=== PATIENT | female | born 1965 | race Caucasian/White ===

== ENCOUNTER 2020-02-13 09:45 | Outpatient (REF) | payer MEDICARE, MEDICAID, SELFPAY ==
--- NOTE | 2020-02-13 09:55 | FL_ITS ---
EXAMINATION: FL BARIUM SWALLOW CLINICAL INFORMATION: Dysphagia. COMPARISON: None TECHNIQUE: Barium swallow with air. FINDINGS: Normal swallowing reflex. No evidence of aspiration. There is a prominent posterior indentation of the cervical esophagus, with the appearance suggestive of a prominent cricopharyngeal muscle. No mass or mucosal lesion is otherwise seen. No hiatal hernia. No reflux is seen during the course of the procedure. Patient swallowed a barium tablet, demonstrating normal passage to the stomach. IMPRESSION: 1. Prominent posterior indentation of cervical esophagus, has the appearance of a prominent cricopharyngeal muscle. Please clinically correlate. 2. Otherwise, unremarkable study.
== END 2020-02-13 09:46 | disposition home or self-care (01) ==
LOC: HO.XRAY 09:45
PROVIDERS: Visit Provider Hospitalist
DX: R13.10 Dysphagia, unspecified (principal); J44.9 Chronic obstructive pulmonary disease, unspecified; G47.30 Sleep apnea, unspecified; Z90.2 Acquired absence of lung [part of]
CPT/HCPCS: 74220

== ENCOUNTER 2020-02-28 14:35 | Emergency (ER) | payer MEDICARE, MEDICAID, SELFPAY ==
--- NOTE | 2020-02-28 14:59 | PC.NURSE ---
pt very anxious stated she wanted to leave to take her mask off. pt encouraged to stay. pt walked outside to take mask off.
== END 2020-02-28 17:25 | disposition left against medical advice (07) ==
PROVIDERS: Emergency Provider Internal Medicine; PCP Internal Medicine
DX: R06.02 Shortness of breath (principal)
CPT/HCPCS: 99281

== ENCOUNTER 2020-02-28 16:53 | Outpatient (REF) | payer MEDICARE, MEDICAID, SELFPAY | END 2020-02-28 16:54 | disposition home or self-care (01) | LOC: HO.LAB 16:53 | PROVIDERS: PCP Internal Medicine; Visit Provider Internal Medicine | DX: Z20.828 Contact with and (suspected) exposure to other viral communicable diseases (principal) | CPT/HCPCS: 87635 ==

== ENCOUNTER 2020-03-01 13:01 | Observation (INO) | payer MEDICARE, MEDICAID, SELFPAY ==
[2020-03-01] VITALS (7 sets, daily range): BP systolic 108–155; BP diastolic 68–91; PULSE 77–107; RESP 15–22; TEMP 36.4–37.5; O2SAT 88–97; BMI 24.2
--- NOTE | 2020-03-01 13:44 | ECG_ITS ---
Test Reason : FEVER WEAKNESS Blood Pressure : / mmHG Vent. Rate : 100 BPM Atrial Rate : 100 BPM P-R Int : 182 ms QRS Dur : 092 ms QT Int : 380 ms P-R-T Axes : 069 061 075 degrees QTc Int : 490 ms Normal sinus rhythm Possible Left atrial enlargement Borderline ECG No significant changes seen Referred By: Susanna Cullen Electronically Signed By:KRYSTAL GIBSON MD
[2020-03-01] MEDS: 0.9 % Sodium Chloride 1,000 ML 999 ML IVCONT (14:26)
[2020-03-01 14:31] LABS: Basophils Percent Auto 0.6 % (0-2); Eosinophils Absolute Auto 0.1 X10*3/uL (0.0-0.4); Hematocrit 35.9 % (37-47); Hemoglobin 12.1 g/dl (12.0-16.0); Imm Gran Abs Auto 0.03 X10*3/uL (0.00-0.03); Imm Gran Pct Auto 0.5 % (0.0-0.4); Lymphocytes Absolute Auto 0.4 X10*3/uL (1.2-4.9); Lymphocytes Percent Auto 6.1 % (20-40); MANUAL DIFF FLAG SCAN; Mean Corpuscular HGB Conc 33.7 g/dl (31.0-35.0); Mean Corpuscular Hemoglobin 33.3 pg (27.0-33.0); Mean Corpuscular Volume 98.9 fL (80-98); Mean Platelet Volume 9.5 fL (9.4-12.3); Monocytes Percent Auto 16.3 % (2-11); Neutrophils Absolute Auto 4.7 X10*3/uL (2.0-8.3); Neutrophils Percent Auto 75.5 % (45-73); Platelet Count 231 X10*3/uL (160-400); Red Blood Count 3.63 X10*6/uL (4.20-5.50); Red Cell Distribution Width 14.2 % (11.0-16.0); SCAN SMEAR FLAG 1; White Blood Count 6.3 X10*3/uL (4.8-10.8)
[2020-03-01 14:37] LABS: Prothrombin Time 11.8 SEC (10.8-13.0)
[2020-03-01 14:53] LABS: Anion Gap 12 (12-20); Blood Urea Nitrogen 7 mg/dL (9-16); Calcium 8.2 mg/dL (8.4-10.2); Carbon Dioxide 27 mmol/L (22-29); Chloride 105 mmol/L (96-108); Creatinine Clr Calc Pharmacy 58.4; Estimated Glomerular Filt Rate 56; Glucose Random 90 mg/dL (60-115); Lactate Dehydrogenase 176 U/L (122-220); Magnesium 2.1 mg/dL (1.6-2.6); Potassium 4.1 mmol/l (3.3-5.1); Sodium 140 mmol/L (135-145)
[2020-03-01 14:56] LABS: SLIDE REVIEW VERIFIED
[2020-03-01 15:01] LABS: B Type Natriuretic Peptide 53 pg/mL (<100); Troponin-I High Sensitivity 4.6 ng/L (<3.5-17.0)
--- NOTE | 2020-03-01 15:09 | ED.SOB ---
HPI - SOB/Dyspnea General Chief Complaint: Dyspnea Stated Complaint: Fever, SOB Time Seen by Provider: 03/01/20 13:35 Source: patient and EMS Mode of arrival: ambulatory Limitations: no limitations History of Present Illness HPI Narrative: 55yoF c Asthma, COPD and sleep apnea presenting to the ED c c/o generalized weakness, dizziness, thirstiness, dry cough and shortness of breath for the past week. Reports she had negative COVID Wednesday. Reports she came back on Wednesday and her 2nd COVID is pending at this time. Denies any other symptoms complaints or concerns at this time. Denies recent travel or sick contacts. Related Data Allergies Allergy/AdvReac Type Severity Reaction Status Date / Time prednisone [PREDNISONE] Allergy Unknown AGITATION Verified 03/01/20 16:30 Review of Systems Review of Systems: Constitutional : + Chills, + Fatigue, + Malaise, No Fever ENT/Mouth : No Ear Pain, No Nasal Congestion, No Sinus Pain, No Hoarseness, No sore throat, No Rhinorrhea, No Swallowing Difficulty Eyes: No Eye Pain, No Swelling, No Redness, No Foreign Body, No Discharge, No Vision Changes Cardiovascular : No Chest Pain, + SOB, No Dyspnea on Exertion, No Orthopnea, No Edema, No Palpitations Respiratory : + Cough, No Sputum, No Wheezing, No Smoke Exposure, No Dyspnea Gastrointestinal : No Nausea, No Vomiting, No Diarrhea, No Constipation, No abdominal Pain, No Hematochezia, No Melena Genitourinary : no irregular bleeding, No Dysuria, No Urinary Frequency, No Hematuria, No Urinary Incontinence, No Urgency, No Flank Pain, No Urinary Flow Changes, No Hesitancy Musculoskeletal : No joint pain, No Myalgias, No Joint Swelling Skin : No Skin Lesions, No rash Neuro : No Weakness, No Numbness, No Paresthesias, No Loss of Consciousness, + Dizziness, No Headache Yes all other systems are reviewed and are negative [facility] Past Medical History Attestation statement: The following information was validated with the patient. Medical History Asthma COPD (chronic obstructive pulmonary disease) Sleep apnea Social History Social History Alcohol intake: never Smoking Status: Former smoker Smoked in Last 30 Days: No Use of substances other than those prescribed or required for medical reasons: No Advance Directives: No (UNABLE TO ASK ISOLATION) Advance Directives Information Provided: No Physical Exam Vital Signs: Vital Signs: Vital Signs Temp Pulse Resp BP Pulse Ox 03/01/20 17:53 99.1 F 89 15 117/70 93 03/01/20 17:49 88 L 03/01/20 16:20 98.8 F 95 18 122/77 91 L 03/01/20 15:06 98.7 F 104 H 22 H 155/91 H 93 03/01/20 13:13 99.5 F 107 H 18 155/87 H 97 Body Mass Index 24.2 vital signs have been reviewed as normal and appeared to be correct. Blood pressure normal. Heart rate normal. Respiration rate normal. Temperature normal. Oxygen saturation normal. Appearance: Alert. Oriented X3. No acute distress. Head: Normal external exam. Normocephalic. Atraumatic. Eyes: PERRLA. EOMI. Conjunctiva and sclera normal. Eyelids normal. ENT: EAC normal. TM's Normal. Pharynx normal. Uvula midline. Moist mucous membranes. No trismus noted. No drooling noted. No muffled voice noted. Neck: Normal inspection. Neck supple. FROM. No adenopathy. Thyroid Normal. No meningeal signs. No neck mass noted. CVS: Normal heart rate and rhythm. Heart sound normal. No murmurs noted. Pulses normal throughout. Respiratory: No respiratory distress. Painless inspiration. Breath sounds normal. No wheezes/rales/rhonchi noted. Chest nontender. No accessory muscle usage noted or decreased air movement noted. Abdomen: Soft and nontender. Bowel sounds normal in all 4 quadrants. No distention noted. No organomegaly noted. No visible injury noted. Back: No CVA tenderness. Full range of motion noted. Skin: Skin warm and dry. Normal skin color. Normal skin turgor. No rashes/lesions/lacerations noted. Extremities: No lower extremity edema. Extremities exhibit normal range of motion. Extremities nontender. Neuro: Oriented X 3. No motor deficit. No sensory deficit. Reflexes normal. Course Course Course Narrative: 13:44PM - 55yoF c Asthma, COPD and sleep apnea presenting to the ED c c/o generalized weakness, dizziness, thirstiness, dry cough and shortness of breath for the past week. - Concern for COVID vs pna vs PE - Plan: Labs, cxr, EKG, blood cultures. lactic acid not indicated as this is a viral infection/COVID-19. will provide IV fluids then re-evaluate. Reevaluation(s) Reevaluation #1: Patient's D-dimer mildly elevated at 234 otherwise all other labs are within normal limits. Patient is positive for COVID on rapid test. And she just walked to the bathroom and the nurse informed me that she went from 91 % on room air to 88% on room air just walking to the bathroom. Awaiting CT scan of chest to evaluate for possible PE or any other acute processes. Plan is to admit for COVID-19 with hypoxia. Patient understands agrees with this plan. Time: 17:41 Reevaluation #2: Awaiting for CTA of chest to evaluate for PE or any other acute processes. Sign out to Carlitos Parker at this time. He will follow up on the CTA and plan is still to admit. Patient understands agrees with this plan. Time: 18:04 MDM - SOB/Dyspnea Medical Records Attestation: I reviewed the patient's medical records. Lab Data Attestation: I reviewed the patient's lab results. Result diagrams: 03/01/20 14:23 03/01/20 14:23 Labs: Lab Results 03/01/20 03/01/20 03/01/20 Range/Units 14:23 14:23 14:23 WBC 6.3 (4.8-10.8) X10*3/uL RBC 3.63 L (4.20-5.50) X10*6/uL Hgb 12.1 (12.0-16.0) g/dl Hct 35.9 L (37-47) % MCV 98.9 H (80-98) fL MCH 33.3 H (27.0-33.0) pg MCHC 33.7 (31.0-35.0) g/dl RDW 14.2 (11.0-16.0) % Plt Count 231 (160-400) X10*3/uL MPV 9.5 (9.4-12.3) fL Immature Gran % (Auto) 0.5 H (0.0-0.4) % Neut % (Auto) 75.5 H (45-73) % Lymph % (Auto) 6.1 L (20-40) % Waldo % (Auto) 16.3 H (2-11) % Eos % (Auto) 1.0 (0-4) % Baso % (Auto) 0.6 (0-2) % Lymph # (Auto) 0.4 L (1.2-4.9) X10*3/uL Waldo # (Auto) 1.0 (0.1-1.2) X10*3/uL Eos # (Auto) 0.1 (0.0-0.4) X10*3/uL Baso # (Auto) 0.0 (0.0-0.2) X10*3/uL Abs Immat Gran (auto) 0.03 (0.00-0.03) X10*3/uL Absolute Neuts (auto) 4.7 (2.0-8.3) X10*3/uL Absolute Nucleated RBC 0.000 (0.0-0.012) X10*3/uL Nucleated RBC % (auto) 0.0 (0.0-0.2) /100WBC Smear Tech's Comments VERIFIED PT 11.8 (10.8-13.0) SEC INR 1.0 (0.9-1.1) D-Dimer 234 NG/ML Sodium 140 (135-145) mmol/L Potassium 4.1 (3.3-5.1) mmol/l Chloride 105 (96-108) mmol/L Carbon Dioxide 27 (22-29) mmol/L Anion Gap 12 (12-20) BUN 7 L (9-16) mg/dL Creatinine 1.03 (0.5-1.4) mg/dL Estim Creat Clear Calc 58.4 Estimated GFR 56 Random Glucose 90 (60-115) mg/dL Calcium 8.2 L (8.4-10.2) mg/dL Magnesium 2.1 (1.6-2.6) mg/dL Ferritin 49 (10-250) ng/mL Lactate Dehydrogenase 176 (122-220) U/L Troponin I High Sens (<3.5-17.0) ng/L B-Natriuretic Peptide (<100) pg/mL Procalcitonin ng/mL Urine Color Urine Appearance Urine pH (5.0-8.0) Ur Specific Eagle (1.005-1.025) Urine Protein (NEG-TRACE) MG/DL Urine Glucose (UA) (NEG) MG/DL Urine Ketones (NEG) MG/DL Urine Blood (NEG) Urine Nitrite (NEG) Ur Leukocyte Esterase (NEG) Urine Test (NEGATIVE) Coronavirus (PCR) (Negative) 03/01/20 03/01/20 03/01/20 Range/Units 14:23 14:23 16:16 WBC (4.8-10.8) X10*3/uL RBC (4.20-5.50) X10*6/uL Hgb (12.0-16.0) g/dl Hct (37-47) % MCV (80-98) fL MCH (27.0-33.0) pg MCHC (31.0-35.0) g/dl RDW (11.0-16.0) % Plt Count (160-400) X10*3/uL MPV (9.4-12.3) fL Immature Gran % (Auto) (0.0-0.4) % Neut % (Auto) (45-73) % Lymph % (Auto) (20-40) % Waldo % (Auto) (2-11) % Eos % (Auto) (0-4) % Baso % (Auto) (0-2) % Lymph # (Auto) (1.2-4.9) X10*3/uL Waldo # (Auto) (0.1-1.2) X10*3/uL Eos # (Auto) (0.0-0.4) X10*3/uL Baso # (Auto) (0.0-0.2) X10*3/uL Abs Immat Gran (auto) (0.00-0.03) X10*3/uL Absolute Neuts (auto) (2.0-8.3) X10*3/uL Absolute Nucleated RBC (0.0-0.012) X10*3/uL Nucleated RBC % (auto) (0.0-0.2) /100WBC Smear Tech's Comments PT (10.8-13.0) SEC INR (0.9-1.1) D-Dimer NG/ML Sodium (135-145) mmol/L Potassium (3.3-5.1) mmol/l Chloride (96-108) mmol/L Carbon Dioxide (22-29) mmol/L Anion Gap (12-20) BUN (9-16) mg/dL Creatinine (0.5-1.4) mg/dL Estim Creat Clear Calc Estimated GFR Random Glucose (60-115) mg/dL Calcium (8.4-10.2) mg/dL Magnesium (1.6-2.6) mg/dL Ferritin (10-250) ng/mL Lactate Dehydrogenase (122-220) U/L Troponin I High Sens 4.6 (<3.5-17.0) ng/L B-Natriuretic Peptide 53 (<100) pg/mL Procalcitonin 0.02 ng/mL Urine Color Urine Appearance Urine pH (5.0-8.0) Ur Specific Eagle (1.005-1.025) Urine Protein (NEG-TRACE) MG/DL Urine Glucose (UA) (NEG) MG/DL Urine Ketones (NEG) MG/DL Urine Blood (NEG) Urine Nitrite (NEG) Ur Leukocyte Esterase (NEG) Urine Test (NEGATIVE) Coronavirus (PCR) POSITIVE A (Negative) 03/01/20 Range/Units 16:52 WBC (4.8-10.8) X10*3/uL RBC (4.20-5.50) X10*6/uL Hgb (12.0-16.0) g/dl Hct (37-47) % MCV (80-98) fL MCH (27.0-33.0) pg MCHC (31.0-35.0) g/dl RDW (11.0-16.0) % Plt Count (160-400) X10*3/uL MPV (9.4-12.3) fL Immature Gran % (Auto) (0.0-0.4) % Neut % (Auto) (45-73) % Lymph % (Auto) (20-40) % Waldo % (Auto) (2-11) % Eos % (Auto) (0-4) % Baso % (Auto) (0-2) % Lymph # (Auto) (1.2-4.9) X10*3/uL Waldo # (Auto) (0.1-1.2) X10*3/uL Eos # (Auto) (0.0-0.4) X10*3/uL Baso # (Auto) (0.0-0.2) X10*3/uL Abs Immat Gran (auto) (0.00-0.03) X10*3/uL Absolute Neuts (auto) (2.0-8.3) X10*3/uL Absolute Nucleated RBC (0.0-0.012) X10*3/uL Nucleated RBC % (auto) (0.0-0.2) /100WBC Smear Tech's Comments PT (10.8-13.0) SEC INR (0.9-1.1) D-Dimer NG/ML Sodium (135-145) mmol/L Potassium (3.3-5.1) mmol/l Chloride (96-108) mmol/L Carbon Dioxide (22-29) mmol/L Anion Gap (12-20) BUN (9-16) mg/dL Creatinine (0.5-1.4) mg/dL Estim Creat Clear Calc Estimated GFR Random Glucose (60-115) mg/dL Calcium (8.4-10.2) mg/dL Magnesium (1.6-2.6) mg/dL Ferritin (10-250) ng/mL Lactate Dehydrogenase (122-220) U/L Troponin I High Sens (<3.5-17.0) ng/L B-Natriuretic Peptide (<100) pg/mL Procalcitonin ng/mL Urine Color STRAW Urine Appearance CLEAR Urine pH 6.5 (5.0-8.0) Ur Specific Eagle <= 1.005 (1.005-1.025) Urine Protein NEG (NEG-TRACE) MG/DL Urine Glucose (UA) NEG (NEG) MG/DL Urine Ketones NEG (NEG) MG/DL Urine Blood NEG (NEG) Urine Nitrite NEG (NEG) Ur Leukocyte Esterase NEG (NEG) Urine Test NEGATIVE (NEGATIVE) Coronavirus (PCR) (Negative) ECG Data Attestation: I personally reviewed and interpreted this ECG as follows: ECG interpretation date: 03/01/20 ECG interpretation time: 15:04 Prior ECG tracings: available for review Interpretation: normal sinus rhythm with a ventricular rate of 100 with left atrial enlargement with normal QRS, QT/QTC interval. No acute ischemic changes noted. Similar compared to prior 09/21/2019. Critical Care Time Critical Care Time Critical Care Time: Yes Total Critical Care Time: 60 Attestation: I personally attest to this time spent taking care of the patient
[2020-03-01 15:15] LABS: Ferritin 49 ng/mL (10-250)
[2020-03-01 15:35] LABS: D Dimer 234 NG/ML
[2020-03-01 15:47] LABS: Procalcitonin 0.02 ng/mL
--- NOTE | 2020-03-01 15:56 | CT_ITS ---
EXAMINATION: CT ANGIOGRAM OF THE CHEST WITH AND WITHOUT CONTRAST (CT PULMONARY ANGIOGRAM FOR PE) CLINICAL INFORMATION: Reason for Exam pt c sob ? pe COMPARISON: CT pulmonary angiogram 09/21/2019 TECHNIQUE: Prior to contrast administration, noncontrast localization images were obtained. Subsequently, multidetector volumetric imaging was performed from the thoracic inlet to below the diaphragms following the administration of 65 mLOmnipaque 350 intravenous contrast. No contrast reaction reported Sagittal, coronal, and MIP oblique sagittal reformatted images were obtained on the CT workstation, uploaded to PACS, and reviewed. This CT examination was performed using dose optimization techniques as appropriate, variously including the following: *Automated exposure control *Adjustment of mA and/or kV according to patient size (this includes techniques or standardized protocols for targeted exams where dose is matched to indication/reason for exam; i.e. extremities or head) *Use of iterative reconstruction technique Total exam dose-length product 247 mGy-cm FINDINGS: QUALITY OF STUDY/CONTRAST BOLUS: Satisfactory. PULMONARY ARTERIES: No central or segmental pulmonary emboli. THORACIC AORTA: No aneurysm is seen. No dissection is seen. Motion artifact obscures detail. Two-vessel branching pattern is seen with common origin to the innominate and left carotid. The great vessels are patent. LUNG: Once again seen are marked changes of COPD. Marked bullous formation is present. Again noted is the left apical soft tissue density with large coarse calcification, unchanged. Left basilar atelectasis is again seen. The previously seen pleural-based density on the right hemidiaphragm is patent and not a worrisome mass. No new suspicious lung masses are seen. PLEURA: No pleural effusion or pneumothorax. MEDIASTINUM: Normal heart size. No pericardial effusion. No hilar or mediastinal lymphadenopathy. No evidence of septal bowing or right heart strain. CHEST WALL/AXILLA: No axillary or internal mammary lymphadenopathy. Bilateral breast prostheses are present. OSSEOUS STRUCTURES: No acute or suspicious osseous abnormality. UPPER ABDOMEN: Unremarkable. No reflux of contrast into the hepatic veins to suggest elevated right heart pressures. CT/CT angio chest PE protocol IMPRESSION: 1. No evidence of pulmonary emboli 2. Marked underlying changes of COPD. 3. A worrisome lung mass is not seen VTE: negative
[2020-03-01] MEDS: Piperacillin Sodium/Tazobactam 3.375 GM in 0.9 % Sodium Chloride 50 ML IV (16:18)
--- NOTE | 2020-03-01 16:26 | PC.NURSE ---
Pt oxygen increased to 2L, for spo2 of 89 on 1L. Pt states she normally does not wear oxygen.
[2020-03-01] MEDS: Ketorolac Tromethamine 15 MG/ML VIAL 30 MG IV (16:40)
[2020-03-01 17:00] LABS: Appearance Urine CLEAR; Color Urine STRAW; Glucose Urine UA NEG (NEG); Leukocyte Esterase Urine NEG (NEG); Nitrite Urine NEG (NEG); PH 6.5 (5.0-8.0); Specific Gravity - Urine <= 1.005 (1.005-1.025); Urine Blood NEG (NEG); Urine Ketones NEG (NEG); Urine Protein NEG (NEG-TRACE)
[2020-03-01 17:01] LABS: UPreg QC Valid YES; Urine Pregnancy NEGATIVE (NEGATIVE)
[2020-03-01] MEDS: iohexoL 350 MG/ML 100 ML INFUS..BTL IV (17:26)
[2020-03-01 17:31] LABS: SARS COV2 PCR INHOUSE POSITIVE (Negative)
--- NOTE | 2020-03-01 19:00 | PM.EVENT ---
Event Note Event Note: Patient came to the hospital because she is feeling tightness and achiness, she was talking with the full sentences personal seem to be short of breath denies any cough or phlegm She says that she has emphysema and COPD and current smoker Found to have COVID positive But negative procalcitonin and LDH, troponin and within the susceptible range, D-dimer 230 Has some lymphopenia CTA chest: -negative infiltrate or mass has emphysema Physical exam: Cvs: rrr, [id number] , no murmur res: Grossly fair entry, few scattered rhonchii. abd : soft , nd , nt , bs present. ext pulses present , no cyanosis neuro: axo3 , nonfocal. Assessment and plan: ? COPD mild versus COVID Patient resting the pain full sentences saturating fine on room air, but with as per ED desaturate with walking Will add pulmonary evaluation for morning
[2020-03-01] MEDS: Acetaminophen 325 MG TABLET 975 MG PO (19:06)
--- NOTE | 2020-03-01 19:15 | P.HPIM_ITS ---
History of Present Illness Date of Service: 03/01/20 <BETHANIE Leal - Last Filed: 03/01/20 19:39> Chief Complaint: shortness of breath <BETHANIE Leal - Last Filed: 03/01/20 19:39> this is a 55-year-old female with a history of COPD who presents to the emergency department with shortness of breath. Patient reports associated dry cough and fever as well as body aches and headache. her coronavirus test in the emergency department was positive. Lab work was mostly unremarkable, CTA showed no evidence of pneumonia. However during ambulation her oxygen saturation dropped to 88% on room air and for this reason overnight observation was requested. <BETHANIE Leal - Last Filed: 03/01/20 19:39> Review of Systems Review of Systems: Yes all other systems are reviewed and are negative <BETHANIE Leal - Last Filed: 03/01/20 19:39> Constitutional: Constitutional: Reports body ache(s), Reports fever(s) and Reports headache(s) <BETHANIE Leal - Last Filed: 03/01/20 19:39> ENT: Reports headache(s) <BETHANIE Leal - Last Filed: 03/01/20 19:39> Cardiovascular: Cardiovascular: Denies chest pain and Reports dyspnea <BETHANIE Leal - Last Filed: 03/01/20 19:39> Respiratory: Respiratory: Reports cough and Reports dyspnea <BETHANIE Leal - Last Filed: 03/01/20 19:39> Neurologic: Reports headache(s) <BETHANIE Leal - Last Filed: 03/01/20 19:39> [facility] Medical History: Medical History Asthma Chronic pain COPD (chronic obstructive pulmonary disease) Mood disorder Pseudoseizures Sleep apnea <BETHANIE Leal - Last Filed: 03/01/20 19:39> Functional capacity: independent ambulation <BETHANIE Leal Last Filed: 03/01/20 19:39> Family history: reviewed and not pertinent <BETHANIE Leal - Last Filed: 03/01/20 19:39> Surgical History: Surgical History H/O tubal ligation Hx of pneumonectomy <BETHANIE Leal - Last Filed: 03/01/20 19:39> Social History: Social History Alcohol intake: never Smoking Status: Current every day smoker Tobacco Type: Cigarette Packs Per Day: 0.5 Cigarettes Per Day: 10.0 Smoked in Last 30 Days: Yes Patient Interested in Nicotine Replacement: Yes (PATCH ORDERD) Patient Given Instructions on How to Stop Smoking: Yes Date Education Initiated: 03/01/20 Use of substances other than those prescribed or required for medical reasons: Yes Substance Use Type: Marijuana Advance Directives: No (UNABLE TO ASK ISOLATION) Advance Directives Information Provided: No service: No Current occupational status: unemployed <BETHANIE Leal - Last Filed: 03/01/20 19:39> Meds Allergies/Adverse reactions: Allergies Allergy/AdvReac Type Severity Reaction Status Date / Time prednisone [PREDNISONE] Allergy Unknown AGITATION Verified 03/01/20 16:30 <BETHANIE Leal - Last Filed: 03/01/20 19:39> Home medications: Home Medications Medication Instructions Recorded Confirmed Type Anoro Ellipta 1 puff PO DAILY 03/01/20 03/01/20 History albuterol sulfate 2 puff PO Q4-6H PRN 03/01/20 03/01/20 History amitriptyline 100 mg PO BEDTIME 03/01/20 03/01/20 History baclofen 20 mg PO BIDWM 03/01/20 03/01/20 History buspirone 15 mg PO BID 03/01/20 03/01/20 History cholecalciferol (vitamin D3) 1 tab PO QWEEK 03/01/20 03/01/20 History diazepam 1 tab PO BID PRN 03/01/20 03/01/20 History gabapentin 600 mg PO TID 03/01/20 03/01/20 History lidocaine 1 patch TOPICAL DAILY 03/01/20 03/01/20 History montelukast 10 mg PO DAILY 03/01/20 03/01/20 History omeprazole 20 mg PO DAILY@0630 03/01/20 03/01/20 History risperidone 0.25 mg PO BID 03/01/20 03/01/20 History ropinirole 1 mg PO BEDTIME 03/01/20 03/01/20 History valacyclovir 500 mg PO DAILY 03/01/20 03/01/20 History <BETHANIE Leal - Last Filed: 03/01/20 19:39> Physical Exam Vital Signs and Narrative: Vital Signs: Last Vital Signs Temp 99.1 F 03/01/20 17:53 Pulse 89 03/01/20 17:53 Resp 15 03/01/20 17:53 BP 117/70 03/01/20 17:53 Pulse Ox 93 03/01/20 17:53 Body Mass Index 24.2 <BETHANIE Leal - Last Filed: 03/01/20 19:39> Const: Nutritional Appearance: well nourished <BETHANIE Leal - Last Filed: 03/01/20 19:39> Orientation/consciousness: patient oriented x3 <BETHANIE Leal - Last Filed: 03/01/20 19:39> HENMT: Head: Yes normocephalic and Yes atraumatic <BETHANIE Leal - Last Filed: 03/01/20 19:39> Eyes: Sclerae: sclerae normal <BETHANIE Leal - Last Filed: 03/01/20 19:39> Chest: Chest palpation & inspection: normal inspection of the chest <BETHANIE Leal - Last Filed: 03/01/20 19:39> Resp: Effort & Inspection: normal respiratory effort and no respiratory distress <BETHANIE Leal Last Filed: 03/01/20 19:39> Auscultation: clear to auscultation bilaterally <BETHANIE Leal - Last Filed: 03/01/20 19:39> Cardio: Rate: regular rate <BETHANIE Leal Last Filed: 03/01/20 19:39> Rhythm: regular rhythm <BETHANIE Leal - Last Filed: 03/01/20 19:39> GI: Palpation (GI): Soft to palpation and nontender <BETHANIE Leal - Last Filed: 03/01/20 19:39> Skin: General skin exam: no rashes or lesions noted <BETHANIE Leal - Last Filed: 03/01/20 19:39> Neuro: General: patient oriented x3 <BETHANIE Leal - Last Filed: 03/01/20 19:39> Cranial nerves: Yes CN's II-XII intact bilaterally and Yes Bilaterally intact EOM present <BETHANIE Leal - Last Filed: 03/01/20 19:39> Extrem: General: Yes normal to inspection <BETHANIE Leal Last Filed: 03/01/20 19:39> Results Labs Labs: Laboratory Tests 03/01/20 03/01/20 03/01/20 14:23 14:23 14:23 WBC 6.3 RBC 3.63 L Hgb 12.1 Hct 35.9 L MCV 98.9 H MCH 33.3 H MCHC 33.7 RDW 14.2 Plt Count 231 MPV 9.5 Immature Gran % (Auto) 0.5 H Neut % (Auto) 75.5 H Lymph % (Auto) 6.1 L [place] % (Auto) 16.3 H Eos % (Auto) 1.0 Baso % (Auto) 0.6 Lymph # (Auto) 0.4 L [place] # (Auto) 1.0 Eos # (Auto) 0.1 Baso # (Auto) 0.0 Abs Immat Gran (auto) 0.03 Absolute Neuts (auto) 4.7 Absolute Nucleated RBC 0.000 Nucleated RBC % (auto) 0.0 Smear Tech's Comments VERIFIED PT 11.8 INR 1.0 D-Dimer 234 Sodium 140 Potassium 4.1 Chloride 105 Carbon Dioxide 27 Anion Gap 12 BUN 7 L Creatinine 1.03 Estim Creat Clear Calc 58.4 Estimated GFR 56 Random Glucose 90 Calcium 8.2 L Magnesium 2.1 Ferritin 49 Lactate Dehydrogenase 176 Troponin I High Sens B-Natriuretic Peptide Procalcitonin Urine Color Urine Appearance Urine pH Ur Specific [place] Urine Protein Urine Glucose (UA) Urine Ketones Urine Blood Urine Nitrite Ur Leukocyte Esterase Urine Test Coronavirus (PCR) 03/01/20 03/01/20 03/01/20 14:23 14:23 16:16 WBC RBC Hgb Hct MCV MCH MCHC RDW Plt Count MPV Immature Gran % (Auto) Neut % (Auto) Lymph % (Auto) [place] % (Auto) Eos % (Auto) Baso % (Auto) Lymph # (Auto) [place] # (Auto) Eos # (Auto) Baso # (Auto) Abs Immat Gran (auto) Absolute Neuts (auto) Absolute Nucleated RBC Nucleated RBC % (auto) Smear Tech's Comments PT INR D-Dimer Sodium Potassium Chloride Carbon Dioxide Anion Gap BUN Creatinine Estim Creat Clear Calc Estimated GFR Random Glucose Calcium Magnesium Ferritin Lactate Dehydrogenase Troponin I High Sens 4.6 B-Natriuretic Peptide 53 Procalcitonin 0.02 Urine Color Urine Appearance Urine pH Ur Specific [place] Urine Protein Urine Glucose (UA) Urine Ketones Urine Blood Urine Nitrite Ur Leukocyte Esterase Urine Test Coronavirus (PCR) POSITIVE A 03/01/20 16:52 WBC RBC Hgb Hct MCV MCH MCHC RDW Plt Count MPV Immature Gran % (Auto) Neut % (Auto) Lymph % (Auto) [place] % (Auto) Eos % (Auto) Baso % (Auto) Lymph # (Auto) [place] # (Auto) Eos # (Auto) Baso # (Auto) Abs Immat Gran (auto) Absolute Neuts (auto) Absolute Nucleated RBC Nucleated RBC % (auto) Smear Tech's Comments PT INR D-Dimer Sodium Potassium Chloride Carbon Dioxide Anion Gap BUN Creatinine Estim Creat Clear Calc Estimated GFR Random Glucose Calcium Magnesium Ferritin Lactate Dehydrogenase Troponin I High Sens B-Natriuretic Peptide Procalcitonin Urine Color STRAW Urine Appearance CLEAR Urine pH 6.5 Ur Specific [place] <= 1.005 Urine Protein NEG Urine Glucose (UA) NEG Urine Ketones NEG Urine Blood NEG Urine Nitrite NEG Ur Leukocyte Esterase NEG Urine Test NEGATIVE Coronavirus (PCR) <BETHANIE Leal - Last Filed: 03/01/20 19:39> Assessment and Plan (1) COVID-19: Problem details: She has moderate illness with oxygen supplementation to maintain over 94% She is comfortable well She claims psychosis to Prednisone,but is on benzodiazepines <BETHANIE Leal - Last Filed: 03/01/20 19:39> Status: Acute <BETHANIE Leal - Last Filed: 03/01/20 19:39> this is a 55-year-old female with a history of COPD who presents to the emergency department with shortness of breath found to have coronavirus and hypoxia acute respiratory failure with hypoxia oxygen saturation dropped to 88% with ambulation related to underlying COPD as well as coronavirus coronavirus viral syndrome no evidence of pneumonia on CTA ferritin 49, LDH 176, D-dimer 234 - supplemental oxygen as needed - albuterol inhaler as needed - pulmonary consult - has declined Decadron as she has had bad reaction with steroids in the past tobacco dependence - smoking cessation advised - NRT COPD -supplemental o2 prn -declined steroids -prn albuterol mood - continue risperidone, diazepam, buspiron chonic pain -continue baclofen, ropinirole, lidoderm patch DVT ppx - Lovenox code status- full code <BETHANIE Leal - Last Filed: 03/01/20 19:39>
--- NOTE | 2020-03-01 19:19 | PC.NURSE ---
called for report, awaiting callback
--- NOTE | 2020-03-01 20:44 | PC.NURSE ---
report given to reginald thayer
[2020-03-01] MEDS: Amitriptyline HCl 50 MG TABLET 100 MG PO (22:11)
[2020-03-01] MEDS: Enoxaparin Sodium 40 MG/0.4 ML SYRINGE SUBCUT (22:11)
[2020-03-01] MEDS: rOPINIRole HCL 1 MG TABLET PO (22:12)
[2020-03-01] MEDS: busPIRone HCl 5 MG TABLET 15 MG PO (22:12)
[2020-03-01] MEDS: risperiDONE 0.25 MG TABLET PO (22:13)
[2020-03-01] MEDS: Gabapentin 600 MG TABLET PO (22:13)
[2020-03-01] MEDS: diazePAM 10 MG TABLET PO (22:19)
[2020-03-02] VITALS (8 sets, daily range): BP systolic 118–166; BP diastolic 68–94; PULSE 87–98; RESP 18–20; TEMP 35.9–37.1; O2SAT 93–97
[2020-03-02] MEDS: 0.9 % Sodium Chloride Flush 3 ML SYRINGE IVFLUSH ×3 (00:35→15:47)
[2020-03-02] MEDS: Acetaminophen 325 MG TABLET 650 MG PO (01:59)
[2020-03-02] MEDS: Omeprazole 20 MG CAPSULE.DR PO (05:30)
[2020-03-02 07:07] LABS: Hematocrit 39.9 % (37-47); Hemoglobin 12.9 g/dl (12.0-16.0); Mean Corpuscular HGB Conc 32.3 g/dl (31.0-35.0); Mean Corpuscular Hemoglobin 32.4 pg (27.0-33.0); Mean Corpuscular Volume 100.3 fL (80-98); Mean Platelet Volume 9.8 fL (9.4-12.3); Platelet Count 238 X10*3/uL (160-400); Red Blood Count 3.98 X10*6/uL (4.20-5.50); Red Cell Distribution Width 14.6 % (11.0-16.0); White Blood Count 5.1 X10*3/uL (4.8-10.8)
[2020-03-02 07:38] LABS: Anion Gap 14 (12-20); Blood Urea Nitrogen 6 mg/dL (9-16); Carbon Dioxide 27 mmol/L (22-29); Chloride 107 mmol/L (96-108); Creatinine Clr Calc Pharmacy 61.4; Estimated Glomerular Filt Rate 59; Glucose Random 122 mg/dL (60-115); Potassium 4.1 mmol/l (3.3-5.1); Sodium 144 mmol/L (135-145)
[2020-03-02] MEDS: Nicotine 14 MG PATCH.TD24 TRANSDERMA (08:54)
[2020-03-02] MEDS: Gabapentin 600 MG TABLET PO ×3 (08:54→20:50)
[2020-03-02] MEDS: risperiDONE 0.25 MG TABLET PO ×2 (08:54→20:50)
[2020-03-02] MEDS: Baclofen 20 MG TABLET PO ×2 (08:54→16:38)
[2020-03-02] MEDS: busPIRone HCl 5 MG TABLET 15 MG PO ×2 (08:54→20:49)
[2020-03-02] MEDS: Montelukast Sodium 10 MG TABLET PO (08:54)
[2020-03-02] MEDS: Lidocaine 4 % Patch ADH..PATCH 1 PATCH TRANSDERMA (08:55)
[2020-03-02] MEDS: diazePAM 10 MG TABLET PO ×2 (09:26→21:26)
--- NOTE | 2020-03-02 10:46 | PM.EVENT ---
Event Note Event Note: I saw this pt, for Pulm. consult . Complete note is dictated , and case discussed with Dr. Cerda . A: Covid infection , underlying , H/O severe COPD .past H/o Thoracostomy , and post thoracostomy pain .NATASHA, Pt on CPAP at night /Chronic Anxiety and psychotic disorder. P: keep her on regular , meds , Monitor O2 sat and may use O2 as needed , No need of starting on Dexa methasone , or Remdesvir at this time . May be started on famotidine 20 mg bid, emperically . May D/C home , if stable by tomorrow .
--- NOTE | 2020-03-02 11:39 | CONS_ITS ---
DATE OF SERVICE: 03/02/2020 HISTORY OF PRESENT ILLNESS: This patient is a 55-year-old female with history of advanced chronic obstructive pulmonary disease and also significant degree of chronic anxiety. She has had thoracostomy in the past and continues to have post thoracostomy pain. She has history of sleep apnea, uses CPAP at night and also has history of pseudoseizures in the past. This time, she is coming in the hospital with increased cough, shortness of breath and anxiety over the last 1 week. Denies any fever, but has had some body aches and pains. She had COVID test earlier during the week, which was negative, but she was in the emergency room on 03/01 with persistent respiratory symptoms and O2 saturation was somewhat low on room air, so she had another COVID test, which is reported to be positive. The patient denies contact with any sick persons or traveling out of the area. REVIEW OF SYSTEMS: Mainly is consisting of cough and shortness of breath, general body aches, and minimal headache. CARDIOVASCULAR: Denies any chest pain, but does have dyspnea on exertion, which may be more due to her pulmonary issues. PERSONAL HISTORY: The patient does smoke a few cigarettes every day up to 10. She also smokes marijuana off and on. ALLERGIES: THE PATIENT DESCRIBES THAT SHE GETS PSYCHOTIC SYMPTOMS FROM HIGH DOSE STEROIDS. MEDICATIONS: Her current medications at home include Anoro Ellipta 1 puff daily, montelukast 10 mg daily, and albuterol 2 puffs q.4-5 hours p.r.n. For her chronic anxiety and bipolar disorder, she is on risperidone 0.25 mg b.i.d. For pain, she is on gabapentin 600 mg t.i.d. The patient also valacyclovir 500 mg daily for herpes simplex infection. PHYSICAL EXAMINATION: GENERAL: A 55-year-old female of a thin build, is walking around in the bedroom. She is holding onto her oximeter and checking her O2 sats, which are staying above 90. VITAL SIGNS: Her vital signs are fairly stable at this time. Respiratory rate 14, pulse is 87, temperature normal. Current O2 saturation 94%. EAR, NOSE, THROAT: No acute infection is noted. NECK: No JVD. Trachea midline. CHEST: Percussion note is hyper-resonant. Breath sounds are very distant. There are inspiratory rhonchi over the right upper lobe. No definite crepitations are heard. HEART: Sounds are normal. Rhythm regular. No murmurs or gallops. ABDOMEN: Flat, soft, and nontender. EXTREMITIES: No edema or varicosities. LABORATORY DATA: COVID PCR rapid test is positive. White cell count 5.1, hemoglobin 12.9, hematocrit 39. CLINICAL IMPRESSION: 1. Advanced chronic obstructive pulmonary disease. 2. 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 3. Obstructive sleep apnea. The patient on CPAP at night. 4. Acute COVID infection, but no evidence of pneumonitis at this time. 5. Anxiety neurosis. RECOMMENDATIONS: I think the patient should be continued on her regular medications. Oxygen supplementation only as needed. Because the patient has history of psychotic symptoms due to steroid, then due to this, we will hold off giving her dexamethasone. The patient should be observed at least for 24 hours in the hospital and if her vital signs are stable and oxygenation is holding stable, then she can be discharged home. At home, she will use her CPAP every night. Thank you very much for asking me to see this patient. MD ANU Esteves/KAREY / [id number]
--- NOTE | 2020-03-02 12:02 | MHC.CM.PN ---
MATERIAL FLOW ANALYST COMPLETED WITH PT WHO REPORTS SHE LIVES ALONE AND IS INDEPENDENT WITH CARE AND MOBILITY. PT REPORTS SHE HAS A CPAP AND NEBULIZER. PT REPORTS HER SISTER WAS PLANNING TO BRING IN HER CPAP. PT REPORTS HER PCP IS JOJO SNELL AT [facility]. PT REPORTS SHE DOES NOT HAVE A HCP AT THIS TIME BUT WOULD LIKE TO COMPLETE ONE DURING HER ADMISSION. PT WILL NAME HER SISTER, MELVIN WAKEFIELD ([phone]) HER AGENT. IMM DELIVERED AND PER PT PREFERENCE, A COPY WILL BE MAILED TO HER HOME. CURRENT DC PLAN IS HOME WITH NO SERVICES PT WILL SELF ARRANGE TRANSPORT AT DC
--- NOTE | 2020-03-02 13:24 | HO.PM.IMPN ---
Subjective Subjective Date of Service: 03/02/20 Interval History: COVID infection Review of Systems Still feel some shortness of breath with walking Physical Exam Vital Signs: Vital Signs: Vital Signs Temp Pulse Resp BP Pulse Ox 03/02/20 11:17 94 03/02/20 11:08 97.8 F 98 18 166/89 H 95 03/02/20 08:00 97.8 F 87 18 147/81 H 94 03/02/20 03:57 95 03/02/20 03:21 98.6 F 87 20 140/79 H 97 03/01/20 23:39 97.6 F 77 20 108/68 93 03/01/20 21:20 97.7 F 78 18 137/86 96 03/01/20 17:53 99.1 F 89 15 117/70 93 03/01/20 17:49 88 L 03/01/20 16:20 98.8 F 95 18 122/77 91 L 03/01/20 15:06 98.7 F 104 H 22 H 155/91 H 93 Body Mass Index 24.2 Physical exam: Cvs: rrr, [id number] , no murmur res: Diminished breath sounds at bases, few scattered wheezing abd: no rebound or guarding ,nt, bs present. ext pulses present , no cyanosis neuro: axo3 , nonfocal. Objective Data Current Medications Generic Name Dose Route Start Last Admin Trade Name Freq PRN Reason Stop Dose Admin Acetaminophen 650 mg 03/01/20 21:05 03/02/20 01:59 Acetaminophen 325 Mg Tablet PO 650 mg Q6H PRN Administration Pain, Mild (Pain Scale 1-3) Albuterol Sulfate 2 puff 03/01/20 21:05 Albuterol Sulfate 90 Mcg 8 Gm Inhaler INHALE Q4H PRN wheezing Amitriptyline HCl 100 mg 03/01/20 21:05 03/01/20 22:11 Amitriptyline Hcl 50 Mg Tablet PO 100 mg BEDTIME LILLIAN Administration Baclofen 20 mg 03/02/20 08:00 03/02/20 08:54 Baclofen 20 Mg Tablet PO 20 mg BIDWM LILLIAN Administration Buspirone HCl 15 mg 03/01/20 21:05 03/02/20 08:54 Buspirone Hcl 5 Mg Tablet PO 15 mg BID LILLIAN Administration Diazepam 10 mg 03/01/20 21:05 03/02/20 09:26 Diazepam 10 Mg Tablet PO 10 mg BID PRN Administration Anxiety Docusate Sodium 100 mg 03/01/20 21:05 Docusate Sodium 100 Mg Capsule PO DAILY PRN Constipation Enoxaparin Sodium 40 mg 03/01/20 21:00 03/01/20 22:11 Enoxaparin Sodium 40 Mg/0.4 Ml Syringe SUBCUT 40 mg Q24H LILLIAN Administration Gabapentin 600 mg 03/01/20 21:05 03/02/20 08:54 Gabapentin 600 Mg Tablet PO 600 mg TID LILLIAN Administration Lidocaine 1 patch 03/02/20 09:00 03/02/20 08:55 Lidocaine 4 % Patch Adh..Patch TRANSDERMA 1 patch DAILY LILLIAN Administration Montelukast Sodium 10 mg 03/02/20 09:00 03/02/20 08:54 Montelukast Sodium 10 Mg Tablet PO 10 mg DAILY LILLIAN Administration Nicotine 14 mg 03/01/20 21:05 03/02/20 08:54 Nicotine 14 Mg Patch.Td24 TRANSDERMA 14 mg DAILY LILLIAN Administration Non-Formulary Medication 1 puff 03/02/20 09:00 Umeclidinium-Vilanterol [Anoro Ellipta] PO DAILY LILLIAN Omeprazole 20 mg 03/02/20 06:30 03/02/20 05:30 Omeprazole 20 Mg Capsule.Dr PO 20 mg DAILY@0630 LILLIAN Administration Ondansetron HCl 4 mg 03/01/20 21:05 Ondansetron Hcl 4 Mg/2 Ml Vial IVPUSH Q8H PRN Nausea and Vomiting Pharmacy Consult 1 each 03/01/20 17:48 Consult Rx Perform Med Rec MISCELLANE ONCE PRN Consult order Risperidone 0.25 mg 03/01/20 21:05 03/02/20 08:54 Risperidone 0.25 Mg Tablet PO 0.25 mg BID LILLIAN Administration Ropinirole HCl 1 mg 03/01/20 21:05 03/01/20 22:12 Ropinirole Hcl 1 Mg Tablet PO 1 mg BEDTIME LILLIAN Administration Sodium Chloride 3 ml 03/02/20 00:00 03/02/20 08:55 0.9 % Sodium Chloride Flush 3 Ml Syringe IVFLUSH 3 ml QSHIFT LILLIAN Administration Valacyclovir HCl 500 mg 03/02/20 09:00 03/02/20 08:54 Valacycyclovir Hcl 500 Mg Tablet PO 500 mg DAILY LILLIAN Administration Labs CBC & Chem 7: 03/02/20 06:29 03/02/20 06:29 Assessment and Plan (1) COVID-19: Status: Acute (2) COPD (chronic obstructive pulmonary disease): Status: Acute Assessment and Plan: 55-year-old female with a history of COPD who presents to the emergency department with shortness of breath found to have coronavirus and hypoxia 1. acute respiratory failure with hypoxia yesterdayoxygen saturation dropped to 88% with ambulation related to underlying COPD as well as coronavirus Still feels winded with walking, very anxious about coronavirus syndrome no evidence of pneumonia on CTA ferritin 49, LDH 176, D-dimer 234 supplemental oxygen as needed, albuterol inhaler as needed,has declined Decadron as she has had bad reaction with steroids in the past Discussed with pulmonary monitor today if shortness of breath worsen we will consider conversant plasma. Id evaluation pending. 2. tobacco dependence smoking cessation advise,NRT 3.COPD supplemental o2 prn,declined steroids prn albuterol 4.mood: continue risperidone, diazepam, buspiron 5.chonic pain: continue baclofen, ropinirole, lidoderm patch
--- NOTE | 2020-03-02 14:40 | W.PM.IDCN ---
History of Present Illness Data of Consult Service Date: 03/02/20 Requesting physician: Bebo Cerda Primary Care Provider: Unknown Physician HPI Reason for consult: shortness of breath She has one week shortness of breath Her boyfriend was diagnosed with COVID yesterday She has COVID positivity She did have home oxygen at night in past but not now She has a dry cough Review of Systems Constitutional: Constitutional: Reports headache(s) ENT: Reports headache(s) Neurologic: Reports headache(s) PMFSH Past Medical History Medical History Asthma Chronic pain COPD (chronic obstructive pulmonary disease) Mood disorder Pseudoseizures Sleep apnea Functional capacity: independent ambulation Family History Family history: reviewed and not pertinent Surgical History Surgical History H/O tubal ligation Hx of pneumonectomy Social History Social History Alcohol intake: never Smoking Status: Current every day smoker Tobacco Type: Cigarette Packs Per Day: 0.5 Cigarettes Per Day: 10.0 Smoked in Last 30 Days: Yes Patient Interested in Nicotine Replacement: Yes (PATCH ORDERD) Patient Given Instructions on How to Stop Smoking: Yes Date Education Initiated: 03/01/20 Use of substances other than those prescribed or required for medical reasons: Yes Substance Use Type: Marijuana Advance Directives: No (UNABLE TO ASK ISOLATION) Advance Directives Information Provided: No service: No Current occupational status: unemployed Meds Allergies Allergy/AdvReac Type Severity Reaction Status Date / Time prednisone [PREDNISONE] Allergy Unknown AGITATION Verified 03/01/20 16:30 Home Medications Medication Instructions Recorded Confirmed Type Anoro Ellipta 1 puff PO DAILY 03/01/20 03/01/20 History albuterol sulfate 2 puff PO Q4-6H PRN 03/01/20 03/01/20 History amitriptyline 100 mg PO BEDTIME 03/01/20 03/01/20 History baclofen 20 mg PO BIDWM 03/01/20 03/01/20 History buspirone 15 mg PO BID 03/01/20 03/01/20 History cholecalciferol (vitamin D3) 1 tab PO QWEEK 03/01/20 03/01/20 History diazepam 1 tab PO BID PRN 03/01/20 03/01/20 History gabapentin 600 mg PO TID 03/01/20 03/01/20 History lidocaine 1 patch TOPICAL DAILY 03/01/20 03/01/20 History montelukast 10 mg PO DAILY 03/01/20 03/01/20 History omeprazole 20 mg PO DAILY@0630 03/01/20 03/01/20 History risperidone 0.25 mg PO BID 03/01/20 03/01/20 History ropinirole 1 mg PO BEDTIME 03/01/20 03/01/20 History valacyclovir 500 mg PO DAILY 03/01/20 03/01/20 History Physical Exam Vital Signs: Vital Signs: Vital Signs Temp Pulse Resp BP Pulse Ox 03/02/20 11:17 94 03/02/20 11:08 97.8 F 98 18 166/89 H 95 03/02/20 08:00 97.8 F 87 18 147/81 H 94 03/02/20 03:57 95 03/02/20 03:21 98.6 F 87 20 140/79 H 97 03/01/20 23:39 97.6 F 77 20 108/68 93 03/01/20 21:20 97.7 F 78 18 137/86 96 03/01/20 17:53 99.1 F 89 15 117/70 93 03/01/20 17:49 88 L 03/01/20 16:20 98.8 F 95 18 122/77 91 L 03/01/20 15:06 98.7 F 104 H 22 H 155/91 H 93 Body Mass Index 24.2 Const: General: cooperative HENMT: Head: Yes normal to inspection Eyes: General: appearance normal, both eyes and all related structures Neck: Neck: Yes no meningeal signs Resp: Other: took oxygen off Effort & Inspection: normal respiratory effort and able to speak in complete sentences Cardio: Rate: regular rate Rhythm: regular rhythm GI: Palpation (GI): nontender Skin: General skin exam: no rashes or lesions noted Neuro: General: no meningeal signs Assessment and Plan (1) COVID-19: Problem details: She has moderate illness with oxygen supplementation to maintain over 94% She is comfortable well She claims psychosis to Prednisone,but is on benzodiazepines Status: Acute Maintain on oxygen She agrees to Dexamethasone 6 mg IV daily if oxygen requirement increases or becomes more symptomatic and if that happens would consult Psychiatry or even consult earlier for best management of steroid psychosis as steroids would be possibly life-saving only drug for COVID with this positive data and benefit would outweigh risk,she agrees Also evaluate for possible Remdesivir candidancy per Pharmacy (2) Hypoxic: Status: Acute (3) COPD (chronic obstructive pulmonary disease): Status: Acute Results Labs CBC & Chem 7: 03/02/20 06:29 03/02/20 06:29 Labs: Short CBC 03/02/20 Range/Units 06:29 WBC 5.1 (4.8-10.8) X10*3/uL Hgb 12.9 (12.0-16.0) g/dl Hct 39.9 (37-47) % Plt Count 238 (160-400) X10*3/uL BMP 03/01/20 03/02/20 14:23 06:29 Sodium 140 144 Potassium 4.1 4.1 Chloride 105 107 Carbon Dioxide 27 27 BUN 7 L 6 L Creatinine 1.03 0.98 Calcium 8.2 L 8.0 L Urine 03/01/20 Range/Units 16:52 Urine Color STRAW Urine Appearance CLEAR Urine pH 6.5 (5.0-8.0) Ur Specific [place] <= 1.005 (1.005-1.025) Urine Protein NEG (NEG-TRACE) MG/DL Urine Glucose (UA) NEG (NEG) MG/DL
[2020-03-02] MEDS: guaiFEN/Codeine SF 200/20/10ML 10 ML LIQUID 5 ML PO (16:38)
[2020-03-02] MEDS: Ibuprofen 200 MG TABLET PO (19:28)
[2020-03-02] MEDS: Enoxaparin Sodium 40 MG/0.4 ML SYRINGE SUBCUT (20:49)
[2020-03-02] MEDS: Amitriptyline HCl 50 MG TABLET 100 MG PO (20:50)
[2020-03-02] MEDS: rOPINIRole HCL 1 MG TABLET PO (20:50)
[2020-03-03] MEDS: 0.9 % Sodium Chloride Flush 3 ML SYRINGE IVFLUSH ×2 (00:13→07:36)
[2020-03-03 03:58] VITALS: BP 102/57; PULSE 78; RESP 18; TEMP 36.4; O2SAT 96
[2020-03-03 04:00] VITALS: BP 102/57; PULSE 78; RESP 18; TEMP 36.4; O2SAT 96
[2020-03-03] MEDS: Omeprazole 20 MG CAPSULE.DR PO (05:57)
[2020-03-03] MEDS: busPIRone HCl 5 MG TABLET 15 MG PO (07:34)
[2020-03-03] MEDS: risperiDONE 0.25 MG TABLET PO (07:34)
[2020-03-03] MEDS: Montelukast Sodium 10 MG TABLET PO (07:35)
[2020-03-03] MEDS: Lidocaine 4 % Patch ADH..PATCH 1 PATCH TRANSDERMA (07:35)
[2020-03-03] MEDS: Baclofen 20 MG TABLET PO (07:35)
[2020-03-03] MEDS: Nicotine 14 MG PATCH.TD24 TRANSDERMA (07:35)
[2020-03-03] MEDS: Gabapentin 600 MG TABLET PO (07:35)
[2020-03-03 07:39] VITALS: BP 129/85; PULSE 87; RESP 18; TEMP 36.8; O2SAT 95
[2020-03-03] MEDS: diazePAM 10 MG TABLET PO (08:15)
--- NOTE | 2020-03-03 11:00 | PM.DS ---
DS: Providers Provider Date of admission: 03/01/20 18:35 Primary care physician: Unknown Physician Consults: 03/01/20 21:05 Consult to Infectious Diseases Routine Consulting Provider: Beth Simmons Reason for consultation: covid Has provider been notified: No Consult to Pulmonology Routine Consulting Provider: Carla Sheppard Reason for consultation: covid, copd Has provider been notified: No DS: Diagnosis Discharge Diagnosis (1) COVID-19: Status: Acute Problem details: She has moderate illness with oxygen supplementation to maintain over 94% She is comfortable well She claims psychosis to Prednisone,but is on benzodiazepines (2) Hypoxic: Status: Acute (3) COPD (chronic obstructive pulmonary disease): Status: Acute DS: Summary Time Spent with Patient Time attestation: Total time spent providing and/or coordinating discharge services: Physical Exam Vital Signs: Vital Signs: Vital Signs Temp Pulse Resp BP Pulse Ox 03/03/20 07:39 98.2 F 87 18 129/85 95 03/03/20 04:00 97.5 F 78 18 102/57 L 96 03/03/20 03:58 97.5 F 78 18 102/57 L 96 03/02/20 23:32 96.7 F L 92 18 118/68 94 03/02/20 18:53 98.7 F 89 18 142/94 H 93 03/02/20 15:19 98.0 F 88 18 150/91 H 97 Body Mass Index 24.2 Physical Exam: Cvs: rrr, [id number] , no murmur. res: Grossly fair entry, no rales or wheezing. abd: no rebound or guarding ,nt, bs present. ext pulses present , no cyanosis neuro: axo3 , nonfocal. DS: Data Data Completed and Pending Labs on day of discharge: Preliminary micro results at discharge 03/01/20 15:12 Blood Culture - Preliminary Blood - Venous No growth after 24 hours. 03/01/20 15:12 Blood Culture - Preliminary Blood - Venous No growth after 24 hours. Discharge Plan Discharge Patient Disposition: Home, Self-Care Referrals: Physician,Unknown [Primary Care Provider] - Discharge Medications: Continued gabapentin 600 mg tablet 600 mg PO TID RF: 0 ropinirole 1 mg tablet 1 mg PO BEDTIME RF: 0 risperidone 0.25 mg tablet 0.25 mg PO BID RF: 0 valacyclovir 500 mg tablet 500 mg PO DAILY RF: 0 baclofen 20 mg tablet 20 mg PO BIDWM RF: 0 lidocaine 5 % adhesive patch,medicated 1 patch topical DAILY RF: 0 omeprazole 20 mg capsule,delayed release(DR/EC) 20 mg PO DAILY@0630 RF: 0 montelukast 10 mg tablet 10 mg PO DAILY RF: 0 diazepam 10 mg tablet 1 tab PO BID PRN (Reason: Anxiety) RF: 0 albuterol sulfate 90 mcg/actuation HFA aerosol inhaler 2 puff PO Q4-6H PRN (Reason: wheezing) RF: 0 amitriptyline 100 mg tablet 100 mg PO BEDTIME RF: 0 buspirone 15 mg tablet 15 mg PO BID RF: 0 cholecalciferol (vitamin D3) 1,250 mcg (50,000 unit) capsule 1 tab PO QWEEK RF: 0 Anoro Ellipta 62.5-25 mcg/actuation blister with device 1 puff PO DAILY RF: 0 Diet: advance to your usual diet Activity on Discharge: As tolerated Visit Report Forms: Patient Portal Discharge page Care Plan Goals: Patient shortness of breath seems vent improved and does not want to use any steroids currently. Feeling better Follow-up out patiently with PCP and Pulmonary as needed. We have advised her to self isolation . Health Concerns: As above. Plan of Treatment: As above.
[2020-03-03 11:31] VITALS: BP 113/82; PULSE 95; RESP 18; TEMP 36.2; O2SAT 90
--- NOTE | 2020-03-03 14:04 | MHC.CM.PN ---
Pt discharged home today with no services. JOE contacted pt post discharge via t/c ([phone]) to follow up on pts request to complete a HCP. CM informed pt that the form was prepared and now needed to be signed in front of two witnesses to be legal. JOE agreed to mail the form to pt along with a copy of her medicare rights. Forms will be mailed out on Wednesday03/04/20
== END 2020-03-03 13:20 | disposition home or self-care (01) ==
LOC: HO.ED 18:28 → HO.IMC 19:21
PROVIDERS: Physician Assistant Medical; Admitting Provider Internal Medicine; Emergency Provider Emergency Medicine; Visit Provider Internal Medicine
DX: U07.1 COVID-19 (principal); R09.02 Hypoxemia; G47.33 Obstructive sleep apnea (adult) (pediatric); F41.1 Generalized anxiety disorder; F17.210 Nicotine dependence, cigarettes, uncomplicated; F12.90 Cannabis use, unspecified, uncomplicated; Z88.0 Allergy status to penicillin; Z79.899 Other long term (current) drug therapy; Z99.81 Dependence on supplemental oxygen; Z99.89 Dependence on other enabling machines and devices
CPT/HCPCS: 36415; 71275; 80048; 81003; 81025; 82728; 83615; 83735; 83880; 84145; 84484; 85025; 85027; 85379; 85610; 87040; 93005; 96361; 96365; 96372; 96375; 99219; 99284; 99285; J1650; J1885; J2543; Q9967; U0003

== ENCOUNTER 2020-03-25 09:58 | Outpatient (REF) | payer MEDICARE, MEDICAID, SELFPAY | END 2020-03-25 09:59 | disposition home or self-care (01) | LOC: HO.LAB 09:58 | PROVIDERS: Visit Provider Internal Medicine | DX: Z20.828 Contact with and (suspected) exposure to other viral communicable diseases (principal) | CPT/HCPCS: C9803; U0003 ==

== ENCOUNTER → 2020-04-02 09:42 | Outpatient (BNVA) | payer MEDICARE, MEDICAID, SELFPAY | PROVIDERS: Visit Provider Physician Assistant | DX: Z86.010 Personal history of colon polyps (principal) | CPT/HCPCS: Q3014 ==

== ENCOUNTER 2020-04-11 13:50 | Outpatient (RCR) | payer MEDICARE, MEDICAID, SELFPAY | END 2021-01-07 09:34 | disposition home or self-care (01) | LOC: HO.PT 13:50 | PROVIDERS: PCP Internal Medicine; Visit Provider Internal Medicine | DX: M25.552 Pain in left hip (principal) ==

== ENCOUNTER → 2020-05-23 13:10 | Outpatient (BNVA) | payer MEDICARE, MEDICAID, SELFPAY | PROVIDERS: PCP Internal Medicine; Visit Provider Hospitalist | DX: J44.9 Chronic obstructive pulmonary disease, unspecified (principal); G47.33 Obstructive sleep apnea (adult) (pediatric); H93.19 Tinnitus, unspecified ear; B94.8 Sequelae of other specified infectious and parasitic diseases; R42 Dizziness and giddiness; Z99.89 Dependence on other enabling machines and devices | CPT/HCPCS: 99212 ==

== ENCOUNTER → 2020-07-02 12:46 | Outpatient (BNVA) | payer MEDICARE, MEDICAID, SELFPAY | PROVIDERS: Visit Provider Physician Assistant | DX: Z13.89 Encounter for screening for other disorder (principal) | CPT/HCPCS: Q3014 ==

== ENCOUNTER → 2020-07-09 13:25 | Outpatient (BNVA) | payer MEDICARE, MEDICAID, SELFPAY | PROVIDERS: PCP Internal Medicine; Visit Provider Hospitalist | DX: B94.8 Sequelae of other specified infectious and parasitic diseases (principal); J43.2 Centrilobular emphysema; G47.33 Obstructive sleep apnea (adult) (pediatric); Z99.89 Dependence on other enabling machines and devices | CPT/HCPCS: 99212 ==

== ENCOUNTER → 2020-08-22 11:47 | Outpatient (BNVA) | payer MEDICARE, MEDICAID, SELFPAY | PROVIDERS: PCP Internal Medicine; Visit Provider Internal Medicine | DX: J43.2 Centrilobular emphysema (principal); G47.33 Obstructive sleep apnea (adult) (pediatric); Z99.89 Dependence on other enabling machines and devices | CPT/HCPCS: 99212 ==

== ENCOUNTER → 2020-08-30 14:19 | Outpatient (BNVA) | payer MEDICARE, MEDICAID, SELFPAY | PROVIDERS: PCP Internal Medicine; Visit Provider Hospitalist | DX: J43.2 Centrilobular emphysema (principal); G47.33 Obstructive sleep apnea (adult) (pediatric); B94.8 Sequelae of other specified infectious and parasitic diseases; Z99.89 Dependence on other enabling machines and devices | CPT/HCPCS: 99212 ==

== ENCOUNTER → 2020-10-28 11:17 | Outpatient (BNVA) | payer MEDICARE, MEDICAID, SELFPAY | PROVIDERS: PCP Internal Medicine; Visit Provider Hospitalist | DX: J43.2 Centrilobular emphysema (principal); G47.33 Obstructive sleep apnea (adult) (pediatric); G89.29 Other chronic pain; B94.8 Sequelae of other specified infectious and parasitic diseases; Z99.89 Dependence on other enabling machines and devices | CPT/HCPCS: 99212 ==

== ENCOUNTER 2020-10-31 11:55 | Outpatient (REF) | payer MEDICARE, MEDICAID, SELFPAY ==
--- NOTE | 2020-10-31 17:25 | PFT_ITS ---
Forced vital capacity is slightly decreased. FEV1 moderately decreased. [id number] and MVV are markedly decreased. Post bronchodilator therapy, there is no significant improvement. Total lung capacity and residual volume moderately decreased. Diffusion capacity is markedly decreased. CONCLUSION: Mild restrictive pulmonary disorder. Xuac-vk-[id number] degree of obstructive airway disorder. No respond to bronchodilator therapy. Clinical correlation is recommended. MD ANU Esteves/KAREY / [phone]
== END 2020-10-31 11:56 | disposition home or self-care (01) ==
LOC: HO.RESP 11:55
PROVIDERS: Visit Provider Hospitalist
DX: J43.2 Centrilobular emphysema (principal); B94.8 Sequelae of other specified infectious and parasitic diseases
CPT/HCPCS: 94060; 94727; 94729

== ENCOUNTER → 2020-11-07 14:59 | Outpatient (BNVA) | payer SELFPAY | PROVIDERS: PCP Internal Medicine; Visit Provider Anesthesiology ==

== ENCOUNTER → 2021-01-01 09:10 | Outpatient (BNVA) | payer MEDICARE, MEDICAID, SELFPAY | PROVIDERS: PCP Internal Medicine; Visit Provider Physician Assistant | DX: K21.9 Gastro-esophageal reflux disease without esophagitis (principal); D12.6 Benign neoplasm of colon, unspecified | CPT/HCPCS: Q3014 ==

== ENCOUNTER → 2021-01-31 10:13 | Outpatient (BNVA) | payer MEDICARE, MEDICAID, SELFPAY | PROVIDERS: PCP Internal Medicine; Visit Provider Hospitalist | DX: G47.33 Obstructive sleep apnea (adult) (pediatric) (principal); J43.2 Centrilobular emphysema; Z99.89 Dependence on other enabling machines and devices | CPT/HCPCS: 99212 ==

== ENCOUNTER 2021-02-12 08:49 | Day surgery (SDC) | payer MEDICARE, MEDICAID, SELFPAY ==
[2021-02-05 11:07] VITALS: BMI 24.3
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
[2021-02-12 09:25] VITALS: BP 119/78; PULSE 88; RESP 16; TEMP 36.8; O2SAT 94
[2021-02-12] MEDS: Lactated Ringers 1,000 ML 100 ML IVCONT (09:37)
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
--- NOTE | 2021-02-12 10:24 | P.BOP_ITS ---
Brief Operative Note Date of Service: 02/12/21 Pre-op diagnosis: hx of polyps Post-op diagnosis: same Procedure: see op note Surgeon: Juana Hancock MD Anesthesia: MAC Was an [employer] used for this Procedure?: No Estimated blood loss (mL): 0 Condition: stable Disposition: PACU
--- NOTE | 2021-02-12 10:48 | W.PM.OPN ---
Operative Note Operative Note Date of Service: 02/12/21 Narrative: Operative Information Procedure Description: Colonoscopy COLONOSCOPY Instrument: Olympus variable stiffness pediatric scope 190L Colonoscopy Monitoring: Vital signs and clinical assessment, continuous EKG monitoring, Pulse oximetry, Carbon Dioxide monitoring and blood pressure monitoring were done throughout the procedure. Colon withdrawal time was 18 minutes. Procedure: The patient was placed in the left lateral decubitis position and pre-procedure medications were administered. After a digital rectal examination of the ano-rectum, the video colonoscope was inserted into the rectum and advanced through the colon to the cecum/TI. The colonoscope was slowly withdrawn in a retrograde panoramic fashion and the colon mucosa was carefully examined including a retroflexed view of the rectum. Findings and interventions are described below. Procedure Difficulty: easy Findings: Terminal Ileum-normal Cecum:normal Ascending Colon: 7-8 mm sessile polyp removed with forceps Transverse Colon -normal Descending Colon: 8-9 sessile polyp removed with forceps and 10 mm flat polyp removed with cold snare-x 1 clip applied for hemostasis. Sigmoid Colon: moderate diverticulosis noted. x 1 sessile polyp 6-8 mm removed with forceps, and 8-10 mm sessile polyp removed with cold snare. Rectum: Retroflexion with small internal hemorrhoids, grade I Anorectum - normal Colon preparation: [place] Bowel Preparation Scale Right colon; 2 Transverse colon: 2 Left colon; 2 (0 = Unprepared colon segment with mucosa not seen due to solid stool that cannot be cleared. 1 = Portion of mucosa of the colon segment seen, but other areas of the colon segment not well seen due to staining, residual stool and/or opaque liquid. 2 = Minor amount of residual staining, small fragments of stool and/or opaque liquid, but mucosa of colon segment seen well. 3 = Entire mucosa of colon segment seen well with no residual staining, small fragments of stool or opaque liquid) Impression and Post Procedure Diagnosis: polyps internal hemorrhoids diverticular disease Plan: High fiber diet leaflet Avoid straining at stool, epsom salts and sitz bath, anusol supps or cream Repeat Colonoscopy in 3 years due to polyp history or earlier if clinically indicated consider genetic screening tests for polyposis syndromes due to personal hx of polyps and FH of polyps Above findings were reviewed with the patient and relevant handouts were provided if indicated.
[2021-02-12 10:51] VITALS: BP 125/86; PULSE 90; RESP 16; TEMP 36.2; O2SAT 95
[2021-02-12 11:06] VITALS: BP 123/87; PULSE 82; RESP 18; TEMP 36.5; O2SAT 97
== END 2021-02-12 11:46 | disposition home or self-care (01) ==
PROVIDERS: PCP Internal Medicine; Visit Provider Internal Medicine Gastroenterology
PROC: 0DJD8ZZ Inspection of Lower Intestinal Tract, Via Natural or Artificial Opening Endoscopic (ICD-10-PCS; CPT 45378; principal; 2021-02-12 10:10)
DX: Z12.11 Encounter for screening for malignant neoplasm of colon (principal); Z86.010 Personal history of colon polyps; D12.2 Benign neoplasm of ascending colon; D12.4 Benign neoplasm of descending colon; D12.5 Benign neoplasm of sigmoid colon; K57.30 Diverticulosis of large intestine without perforation or abscess without bleeding; K64.0 First degree hemorrhoids; K21.9 Gastro-esophageal reflux disease without esophagitis; J44.9 Chronic obstructive pulmonary disease, unspecified; J45.909 Unspecified asthma, uncomplicated; G47.33 Obstructive sleep apnea (adult) (pediatric); G89.29 Other chronic pain; R56.9 Unspecified convulsions; F39 Unspecified mood [affective] disorder; Z79.51 Long term (current) use of inhaled steroids; Z79.82 Long term (current) use of aspirin; Z79.899 Other long term (current) drug therapy; Z99.89 Dependence on other enabling machines and devices; Z88.8 Allergy status to other drugs, medicaments and biological substances; U09.9 Post COVID-19 condition, unspecified; F17.210 Nicotine dependence, cigarettes, uncomplicated; F12.90 Cannabis use, unspecified, uncomplicated
CPT/HCPCS: 45385; 45380; 88305

== ENCOUNTER 2021-02-27 14:46 | Inpatient (IN) | payer MEDICARE, MEDICAID, SELFPAY ==
--- NOTE | ~2021-02-27 | XR_ITS ---
EXAMINATION: XR CHEST CLINICAL INFORMATION: Upper respiratory symptoms COMPARISON: None TECHNIQUE: AP portable view of the chest was obtained. FINDINGS: There is hyperinflation lungs. There are increased interstitial markings which appear to be chronic in nature. There are some bullous change seen in the upper lobes bilaterally. Heart normal size. No evidence of pulmonary edema. No pneumothorax or pleural effusion. XR/XR chest 1V IMPRESSION: No acute disease. Changes of bullous emphysema.
--- NOTE | ~2021-02-27 | CT_ITS ---
EXAMINATION: CT CHEST WITHOUT CONTRAST CLINICAL INFORMATION: Rule out pneumonia. hx bullous COPD. sob/cp COMPARISON: Chest x-ray February 19, 2021 TECHNIQUE: Multidetector volumetric CT imaging of the chest was done. Axial MIP volume rendering provided. Sagittal and coronal reformatted images were obtained. This CT examination was performed using dose optimization techniques as appropriate, variously including the following: *Automated exposure control *Adjustment of mA and/or kV according to patient size (this includes techniques or standardized protocols for targeted exams where dose is matched to indication/reason for exam; i.e. extremities or head) *Use of iterative reconstruction technique DLP: 259 mGy-cm FINDINGS: LUNGS: Marked paraseptal and centrilobular emphysematous change of lungs. There are large bulla of both lung apices No acute airspace disease. No bronchiectasis. The central bronchial airways are open. No suspicious lung nodules. MEDIASTINUM: There is no mediastinal mass or significant lymphadenopathy. The heart size is normal. No pericardial effusion. No aneurysm of aorta. Small volume of vascular calcifications of thoracic aortic arch. No calcifications of the coronary arteries. PLEURA: There is no pleural effusion. No pleural mass or thickening. There is no pneumothorax. AXILLA: No significant lymphadenopathy. Bilateral breast implants. UPPER ABDOMEN: Unremarkable. OSSEOUS STRUCTURES: Unremarkable. CT/CT chest wo con IMPRESSION: Marked emphysematous change of lungs. No acute airspace disease. There is no pneumothorax.
[2021-02-27 14:55] VITALS: BP 142/89; PULSE 115; RESP 20; TEMP 37.1; O2SAT 96; BMI 22.7
--- NOTE | 2021-02-27 14:59 | ECG_ITS ---
Test Reason : CHEST PAIN Blood Pressure : / mmHG Vent. Rate : 099 BPM Atrial Rate : 099 BPM P-R Int : 136 ms QRS Dur : 082 ms QT Int : 356 ms P-R-T Axes : 074 074 078 degrees QTc Int : 456 ms Normal sinus rhythm Normal ECG No previous ECGs available Referred By: Generic ED Physician Electronically Signed By:KRYSTAL GIBSON MD
--- NOTE | 2021-02-27 16:10 | ED.URI ---
HPI - URI/Sore Throat General Chief Complaint: Upper Respiratory Symptoms Stated Complaint: difficulty breathing hx of copd Time Seen by Provider: 02/27/21 16:08 Source: patient Mode of arrival: ambulatory History of Present Illness HPI Narrative: 56-year-old female with a past medical history of anxiety, asthma, COPD, depression, IBS, GERD, post thoracotomy pain syndrome, s/p lobectomy of lung, presenting to the ED complaining of shortness of breath, cough, left upper chest discomfort x1 week. Reports symptoms similar to COPD exacerbation. States chest pain worse with coughing/movement. Was recently seen at urgent care last week prescribed Levaquin without relief. Also reports mild swelling in LE. Denies fever, chills, recent travel, COVID-19 exposure, abdominal pain, nausea, vomiting. Denies taking anticoagulation MD elicited complaint: cough Related Data Home Medications Medication Instructions Recorded Confirmed baclofen 20 mg tablet 20 mg PO BID 11/01/20 amitriptyline 100 mg tablet 100 mg PO BEDTIME 11/07/20 azithromycin 250 mg tablet 250 mg PO 3XW 11/07/20 bupropion HCl 150 mg 24 hr tablet, 150 mg PO QAM 11/07/20 extended release buspirone 15 mg tablet 15 mg PO BID 11/07/20 clonazepam 1 mg tablet 1 mg PO TID PRN 11/07/20 gabapentin 300 mg capsule 300 mg PO BID 11/07/20 gabapentin 600 mg tablet 600 mg PO TID 11/07/20 ibuprofen 800 mg tablet 800 mg PO TID 11/07/20 ipratropium 20 mcg-albuterol 100 1 puff INHALATION QID 11/07/20 mcg/actuation mist for inhalation lidocaine 5 % topical patch 1 patch TOPICAL DAILY 11/07/20 nicotine 10 mg inhalation cartridge 0 inh INHALATION 11/07/20 roflumilast 250 mcg tablet 250 mcg PO DAILY 11/07/20 ropinirole 1 mg tablet 1 mg PO BEDTIME 11/07/20 Previous Rx's Medication Instructions Recorded baclofen 20 mg tablet 20 mg PO BID 30 Days #60 tab 11/07/20 gabapentin 600 mg tablet 600 mg PO TID 30 Days #90 tab 11/07/20 montelukast 10 mg tablet 10 mg PO DAILY #30 tab 12/09/20 Allergies Allergy/AdvReac Type Severity Reaction Status Date / Time Androgenic Anabolic Steroid Allergy unknown Verified 02/27/21 14:55 Review of Systems Review of Systems: Constitutional: No Fever, No Chills, No Fatigue, No Malaise ENT/Mouth: No Nasal Congestion, No Sinus Pain, No Hoarseness, No sore throat Eyes: No Eye Pain, No Swelling, No Redness, No Discharge Cardiovascular: + Chest Pain, + SOB, + Dyspnea on Exertion, No Orthopnea, + Edema Respiratory: + Cough, No Sputum, No Wheezing,+ Dyspnea Gastrointestinal: No Nausea, No Vomiting, No Diarrhea, No Constipation, No Abdominal pain Genitourinary:No Dysuria, No Urinary Frequency, No Hematuria,No Flank Pain, No Urinary Flow Changes, No Hesitancy Musculoskeletal: No joint pain, No Myalgias, No Joint Swelling Skin: No Skin Lesions, No rash Neuro: No Weakness, No Numbness, No Dizziness, No Headache Yes all other systems are reviewed and are negative [facility] Past Medical History Attestation statement: The following information was validated with the patient. Medical History (Updated 02/27/21 @ 20:27 by BETHANIE Gentile) Anxiety Asthma Chronic pain syndrome COPD (chronic obstructive pulmonary disease) Depression GERD (gastroesophageal reflux disease) IBS (irritable bowel syndrome) Migraines Pneumonia Post-COVID syndrome Post-thoracotomy pain syndrome Surgical History (Updated 02/27/21 @ 14:58 by Bridgette Falk RN) S/P lobectomy of lung Social History Social History Advance Directives: No Advance Directives Information Provided: No Patient : No Physical Exam Vital Signs: Vital Signs: Last Vital Signs Temp 98 F 02/27/21 19:49 Pulse 88 02/27/21 19:49 Resp 21 H 02/27/21 19:49 BP 104/52 L 02/27/21 19:49 Pulse Ox 94 02/27/21 19:49 Body Mass Index 22.7 Const: General: cooperative and no acute distress Orientation/consciousness: patient oriented x3 Limitations: no limitations HENMT: Head: Yes normal to inspection and Yes atraumatic Ears: hearing grossly normal bilaterally General nose exam: Normal external nose present Face and sinus: Yes normal facial exam Eyes: General: appearance normal, both eyes and all related structures EOM: EOMs intact bilaterally Neck: Neck: Yes normal visual inspection and Yes no meningeal signs Resp: Effort & Inspection: normal respiratory effort Auscultation: rhonchi left upper and right upper Cardio: Rate: regular rate and tachycardic Heart sounds: S1 normal heart sound present and S2 normal heart sound present GI: Inspection: Yes normal to inspection Palpation (GI): Soft to palpation, nontender, no guarding and not rigid Skin: Rashes: no rashes Wounds: no wounds Neuro: General: patient oriented x3 and no meningeal signs Gait exam (Neuro): Normal gait present Extrem: General: Yes normal to inspection, Yes no pedal edema and Yes no calf tenderness Course Course Course Narrative: XR chest 1V IMPRESSION: No acute disease. Changes of bullous emphysema. -1722--no leukocytosis, labs otherwise unremarkable, troponin negative -D-dimer negative, COVID-19 negative -1916--CT chest wo con IMPRESSION: Marked emphysematous change of lungs. No acute airspace disease. There is no pneumothorax. >> on re-evaluation patient with better air movement, still rhonchi in upper lobes. Will give additional DuoNeb -2023--on re-evaluation patient received 2nd DuoNeb however descended 88% on RA > increase to 92-93% on 2L NC Plan for admission MDM - URI/Sore Throat MDM Narrative Medical decision making narrative: 56-year-old female with a past medical history of anxiety, asthma, COPD, depression, IBS, GERD, post thoracotomy pain syndrome, s/p lobectomy of lung, presenting to the ED complaining of shortness of breath, cough, left upper chest discomfort x1 week. On exam tachycardic, NAD, rhonchi diffusely greater and upper lobes, no pedal edema/calf tenderness. Concern for COPD exacerbation vs pneumonia vs PE vs COVID-19/viral syndrome vs CHF exacerbation. Symptoms atypical for ACS Low concern for severe sepsis at this time Plan: EKG, labs, CXR, COVID-19 testing, DuoNeb, magnesium, re-evaluate Medical Records Attestation: I reviewed the patient's medical records. Lab Data Attestation: I reviewed the patient's lab results. Result diagrams: 02/27/21 16:42 02/27/21 16:42 Labs: Lab Results 02/27/21 02/27/21 02/27/21 Range/Units 16:04 16:42 16:42 WBC 10.1 (4.8-10.8) X10*3/uL RBC 4.08 L (4.20-5.50) X10*6/uL Hgb 13.2 (12.0-16.0) g/dl Hct 39.3 (37-47) % MCV 96.3 (80-98) fL MCH 32.4 (27.0-33.0) pg MCHC 33.6 (31.0-35.0) g/dl RDW 13.5 (11.0-16.0) % Plt Count 329 (160-400) X10*3/uL MPV 9.5 (9.4-12.3) fL Immature Gran % (Auto) 0.3 (0.0-0.4) % Neut % (Auto) 67.6 (45-73) % Lymph % (Auto) 23.8 (20-40) % [place] % (Auto) 7.2 (2-11) % Eos % (Auto) 0.6 (0-4) % Baso % (Auto) 0.5 (0-2) % Lymph # (Auto) 2.4 (1.2-4.9) X10*3/uL [place] # (Auto) 0.7 (0.1-1.2) X10*3/uL Eos # (Auto) 0.1 (0.0-0.4) X10*3/uL Baso # (Auto) 0.1 (0.0-0.2) X10*3/uL Abs Immat Gran (auto) 0.03 (0.00-0.03) X10*3/uL Absolute Neuts (auto) 6.9 (2.0-8.3) X10*3/uL Absolute Nucleated RBC 0.000 (0.0-0.012) X10*3/uL Nucleated RBC % (auto) 0.0 (0.0-0.2) /100WBC D-Dimer NG/ML Sodium 138 (135-145) mmol/L Potassium 4.2 (3.3-5.1) mmol/L Chloride 104 (96-108) mmol/L Carbon Dioxide 26 (22-29) mmol/L Anion Gap 12 (12-20) BUN 7 L (9-16) mg/dL Creatinine 1.14 (0.5-1.4) mg/dL Estim Creat Clear Calc 54.1 Estimated GFR 49 Random Glucose 91 (60-115) mg/dL Lactic Acid (0.5-2.0) mmol/L Calcium 9.5 (8.4-10.2) mg/dL Magnesium 2.0 (1.6-2.6) mg/dL Total Bilirubin 0.2 (0.0-1.0) mg/dL Direct Bilirubin < 0.2 (0.0-0.5) mg/dL AST 20 (5-31) U/L ALT 12 (0-31) U/L Alkaline Phosphatase 116 (39-117) U/L Troponin I High Sens (<3.5-17.0) ng/L B-Natriuretic Peptide (<100) pg/mL Total Protein 6.5 (6.5-8.0) g/dL Albumin 4.2 (3.5-5.0) g/dL COVID-19 ([facility]OMI) Negative (Negative) COVID-19 Clin Com See Note 02/27/21 02/27/21 02/27/21 Range/Units 16:42 16:42 16:42 WBC (4.8-10.8) X10*3/uL RBC (4.20-5.50) X10*6/uL Hgb (12.0-16.0) g/dl Hct (37-47) % MCV (80-98) fL MCH (27.0-33.0) pg MCHC (31.0-35.0) g/dl RDW (11.0-16.0) % Plt Count (160-400) X10*3/uL MPV (9.4-12.3) fL Immature Gran % (Auto) (0.0-0.4) % Neut % (Auto) (45-73) % Lymph % (Auto) (20-40) % [place] % (Auto) (2-11) % Eos % (Auto) (0-4) % Baso % (Auto) (0-2) % Lymph # (Auto) (1.2-4.9) X10*3/uL [place] # (Auto) (0.1-1.2) X10*3/uL Eos # (Auto) (0.0-0.4) X10*3/uL Baso # (Auto) (0.0-0.2) X10*3/uL Abs Immat Gran (auto) (0.00-0.03) X10*3/uL Absolute Neuts (auto) (2.0-8.3) X10*3/uL Absolute Nucleated RBC (0.0-0.012) X10*3/uL Nucleated RBC % (auto) (0.0-0.2) /100WBC D-Dimer 212 NG/ML Sodium (135-145) mmol/L Potassium (3.3-5.1) mmol/L Chloride (96-108) mmol/L Carbon Dioxide (22-29) mmol/L Anion Gap (12-20) BUN (9-16) mg/dL Creatinine (0.5-1.4) mg/dL Estim Creat Clear Calc Estimated GFR Random Glucose (60-115) mg/dL Lactic Acid 0.6 (0.5-2.0) mmol/L Calcium (8.4-10.2) mg/dL Magnesium (1.6-2.6) mg/dL Total Bilirubin (0.0-1.0) mg/dL Direct Bilirubin (0.0-0.5) mg/dL AST (5-31) U/L ALT (0-31) U/L Alkaline Phosphatase (39-117) U/L Troponin I High Sens < 3.5 (<3.5-17.0) ng/L B-Natriuretic Peptide < 10 (<100) pg/mL Total Protein (6.5-8.0) g/dL Albumin (3.5-5.0) g/dL COVID-19 ([facility]) (Negative) COVID-19 Clin Com Discharge Plan Discharge Clinical Impression: COPD exacerbation COPD (chronic obstructive pulmonary disease) with emphysema Qualifiers: Emphysema type: other Qualified Code(s): J43.8 - Other emphysema Patient Disposition: Admitted As Inpatient
[2021-02-27 16:29] LABS: COVID-19 Test Negative (Negative)
[2021-02-27 16:48] LABS: MANUAL DIFF FLAG NO
[2021-02-27 16:52] LABS: Basophils Absolute Auto 0.1 X10*3/uL (0.0-0.2); Basophils Percent Auto 0.5 % (0-2); Eosinophils Absolute Auto 0.1 X10*3/uL (0.0-0.4); Eosinophils Percent Auto 0.6 % (0-4); Hematocrit 39.3 % (37-47); Hemoglobin 13.2 g/dl (12.0-16.0); Imm Gran Abs Auto 0.03 X10*3/uL (0.00-0.03); Imm Gran Pct Auto 0.3 % (0.0-0.4); Lymphocytes Absolute Auto 2.4 X10*3/uL (1.2-4.9); Lymphocytes Percent Auto 23.8 % (20-40); Mean Corpuscular HGB Conc 33.6 g/dl (31.0-35.0); Mean Corpuscular Hemoglobin 32.4 pg (27.0-33.0); Mean Corpuscular Volume 96.3 fL (80-98); Mean Platelet Volume 9.5 fL (9.4-12.3); Monocytes Absolute Auto 0.7 X10*3/uL (0.1-1.2); Monocytes Percent Auto 7.2 % (2-11); Neutrophils Absolute Auto 6.9 X10*3/uL (2.0-8.3); Neutrophils Percent Auto 67.6 % (45-73); Platelet Count 329 X10*3/uL (160-400); Red Blood Count 4.08 X10*6/uL (4.20-5.50); Red Cell Distribution Width 13.5 % (11.0-16.0); White Blood Count 10.1 X10*3/uL (4.8-10.8)
[2021-02-27 16:59] LABS: Lactic Acid 0.6 mmol/L (0.5-2.0)
[2021-02-27 17:00] LABS: D Dimer 212 NG/ML
[2021-02-27 17:06] LABS: Alanine Aminotransferase 12 U/L (0-31); Albumin Level 4.2 g/dL (3.5-5.0); Alkaline Phosphatase 116 U/L (39-117); Anion Gap 12 (12-20); Aspartate Amino Transferase 20 U/L (5-31); Bilirubin Direct < 0.2 mg/dL (0.0-0.5); Bilirubin Total 0.2 mg/dL (0.0-1.0); Blood Urea Nitrogen 7 mg/dL (9-16); Calcium 9.5 mg/dL (8.4-10.2); Carbon Dioxide 26 mmol/L (22-29); Chloride 104 mmol/L (96-108); Creatinine Clr Calc Pharmacy 54.1; Estimated Glomerular Filt Rate 49; Glucose Random 91 mg/dL (60-115); Potassium 4.2 mmol/L (3.3-5.1); Sodium 138 mmol/L (135-145); Total Protein 6.5 g/dL (6.5-8.0)
[2021-02-27 17:09] LABS: B Type Natriuretic Peptide < 10 pg/mL (<100); Troponin-I High Sensitivity < 3.5 ng/L (<3.5-17.0)
[2021-02-27] MEDS: Magnesium Sulfate/H2O 2 GM/50 ML PIGGYBACK IV (17:11)
[2021-02-27] MEDS: Albuterol Sulfate (0.083%) 2.5 MG/3 ML VIAL.NEB 5 MG INHALE ×2 (17:25→19:35)
[2021-02-27] MEDS: Albuterol/Iprat 2.5/0.5MG 3 ML AMPUL.NEB INHALE ×2 (17:25→19:35)
[2021-02-27] MEDS: Acetaminophen 325 MG TABLET 650 MG PO (17:28)
[2021-02-27 17:48] VITALS: BP 146/96; PULSE 91; RESP 18; TEMP 36.7; O2SAT 98
[2021-02-27 18:00] VITALS: BP 123/72; PULSE 78; RESP 12; TEMP 36.7; O2SAT 98
[2021-02-27] MEDS: Butalb/Acetamin/Caff 50/325/40 TABLET 1 TAB PO (18:11)
[2021-02-27 19:37] VITALS: PULSE 8; O2SAT 96
[2021-02-27 19:49] VITALS: BP 104/52; PULSE 88; RESP 21; TEMP 36.6; O2SAT 94
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
[2021-02-27] MEDS: Azithromycin 500 MG in 0.9 % Sodium Chloride 250 ML 125 MG IV (21:10)
[2021-02-27] MEDS: Benzonatate 100 MG CAPSULE 200 MG PO (21:10)
[2021-02-27 23:25] VITALS: BP 109/70; PULSE 84; RESP 17; TEMP 36.4; O2SAT 96
[2021-02-27] MEDS: Azithromycin 500 MG TABLET PO (23:33)
[2021-02-27] MEDS: Morphine Sulfate 4 MG/ML CARTRIDGE 1 MG IVPUSH (23:33)
[2021-02-27] MEDS: Heparin Sodium,Porcine 5,000 UNIT/ML VIAL 5000 UNIT SUBCUT (23:33)
[2021-02-27 23:41] VITALS: BMI 24.7
[2021-02-28] VITALS (9 sets, daily range): BP systolic 100–128; BP diastolic 53–78; PULSE 76–94; RESP 16–20; TEMP 35.5–37; O2SAT 93–98
[2021-02-28] MEDS: Omeprazole 20 MG CAPSULE.DR PO (06:19)
[2021-02-28] MEDS: Heparin Sodium,Porcine 5,000 UNIT/ML VIAL 5000 UNIT SUBCUT ×3 (06:21→23:34)
[2021-02-28] MEDS: Morphine Sulfate 4 MG/ML CARTRIDGE 1 MG IVPUSH ×5 (06:24→23:34)
[2021-02-28 06:39] LABS: MANUAL DIFF FLAG NO
[2021-02-28 06:53] LABS: Basophils Percent Auto 0.7 % (0-2); Eosinophils Absolute Auto 0.1 X10*3/uL (0.0-0.4); Eosinophils Percent Auto 0.9 % (0-4); Hemoglobin 11.9 g/dl (12.0-16.0); Imm Gran Abs Auto 0.01 X10*3/uL (0.00-0.03); Imm Gran Pct Auto 0.2 % (0.0-0.4); Lymphocytes Absolute Auto 1.7 X10*3/uL (1.2-4.9); Lymphocytes Percent Auto 30.9 % (20-40); Mean Corpuscular HGB Conc 33.1 g/dl (31.0-35.0); Mean Corpuscular Hemoglobin 32.5 pg (27.0-33.0); Mean Corpuscular Volume 98.4 fL (80-98); Mean Platelet Volume 9.7 fL (9.4-12.3); Monocytes Absolute Auto 0.6 X10*3/uL (0.1-1.2); Monocytes Percent Auto 9.9 % (2-11); Neutrophils Absolute Auto 3.2 X10*3/uL (2.0-8.3); Neutrophils Percent Auto 57.4 % (45-73); Platelet Count 292 X10*3/uL (160-400); Red Blood Count 3.66 X10*6/uL (4.20-5.50); Red Cell Distribution Width 13.8 % (11.0-16.0); White Blood Count 5.6 X10*3/uL (4.8-10.8)
[2021-02-28] MEDS: Albuterol/Iprat 2.5/0.5MG 3 ML AMPUL.NEB INHALE (07:30)
[2021-02-28 07:38] LABS: Anion Gap 12 (12-20); Blood Urea Nitrogen 6 mg/dL (9-16); Calcium 8.6 mg/dL (8.4-10.2); Carbon Dioxide 30 mmol/L (22-29); Chloride 104 mmol/L (96-108); Creatinine Clr Calc Pharmacy 56.7; Estimated Glomerular Filt Rate 52; Glucose Random 105 mg/dL (60-115); Potassium 4.1 mmol/L (3.3-5.1); Sodium 142 mmol/L (135-145)
[2021-02-28] MEDS: Gabapentin 600 MG TABLET PO ×3 (08:37→19:31)
[2021-02-28] MEDS: risperiDONE 0.25 MG TABLET PO ×2 (08:37→19:30)
[2021-02-28] MEDS: Baclofen 20 MG TABLET PO ×2 (08:37→19:32)
[2021-02-28] MEDS: 0.9 % Sodium Chloride Flush 3 ML SYRINGE IVFLUSH ×3 (08:38→19:31)
--- NOTE | 2021-02-28 08:48 | HE.PHANOTE ---
Spoke to Nahomi HOGAN who said the patients family might be able to bring in her non-formulary medications. The patient is going to see if she can find someone to bring it. Will follow up.
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
--- NOTE | 2021-02-28 10:15 | HO.PM.IMPN ---
Subjective Subjective Date of Service: 02/28/21 Interval History: cc: sob interval history: somewhat better today, still sob Gastrointestinal Gastrointestinal: Reports no additional gastrointestinal complaints Genitourinary Genitourinary: Reports no additional female genitourinary complaints Physical Exam Vital Signs: Vital Signs: Last Vital Signs Temp 962 F H 02/28/21 06:55 Pulse 81 02/28/21 07:32 Resp 20 02/28/21 06:55 BP 100/56 L 02/28/21 06:55 Pulse Ox 98 02/28/21 06:55 Body Mass Index 24.7 General: AO X 3, no acute distress Resp: wheezes bilateral, no accessory muscles used CVS: S1,S2,RRR GI: soft, non tender, non distended Neuro: motor grossly intact, alert Psych: appropriate affect, appropriate insight Objective Data Active Medications Acetaminophen (Acetaminophen 325 Mg Tablet) 650 mg PO Q6H PRN PRN Reason: Pain, Mild (Pain Scale 1-3) Albuterol Sulfate (Albuterol Sulfate (0.083%) 2.5 Mg/3 Ml Vial.Neb) 2.5 mg INHALE Q2H PRN PRN Reason: Shortness of Breath/Wheezing Albuterol/Ipratropium (Albuterol/Iprat 2.5/0.5mg 3 Ml Ampul.Neb) 3 ml INHALE RQ4H WHILE AWAKE [facility] Last Admin: 02/28/21 07:30 Dose: 3 ml Documented by: CHRYSTAL Azithromycin (Azithromycin 500 Mg Tablet) 500 mg PO Q24H [facility] Last Admin: 02/27/21 23:33 Dose: 500 mg Documented by: GERMAN Baclofen (Baclofen 20 Mg Tablet) 20 mg PO BID [facility] Last Admin: 02/28/21 08:37 Dose: 20 mg Documented by: SHIKHA Famotidine (Famotidine 20 Mg Tablet) 20 mg PO BID [facility] Last Admin: 02/28/21 08:48 Dose: Not Given Documented by: SHIKHA Non-Admin Reason: Patient Refused Gabapentin (Gabapentin 600 Mg Tablet) 600 mg PO TID [facility] Last Admin: 02/28/21 08:37 Dose: 600 mg Documented by: SHIKHA Heparin Sodium (Porcine) (Heparin Sodium,Porcine 5,000 Unit/Ml Vial) 5,000 unit SUBCUT Q8H [facility] Last Admin: 02/28/21 06:21 Dose: 5,000 unit Documented by: GERMAN Melatonin (Melatonin 3 Mg Tablet) 6 mg PO BEDTIME PRN PRN Reason: Insomnia Morphine Sulfate (Morphine Sulfate 4 Mg/Ml Cartridge) 1 mg IVPUSH Q4H PRN; Protocol PRN Reason: Pain, SOB Last Admin: 02/28/21 06:24 Dose: 1 mg Documented by: GERMAN Non-Formulary Medication (Roflumilast [Daliresp]) 1 tab PO DAILY [facility] Non-Formulary Medication (Umeclidinium-Vilanterol [Anoro Ellipta]) 1 puff PO DAILY [facility] Omeprazole (Omeprazole 20 Mg Capsule.Dr) 20 mg PO DAILY@0600 [facility] Last Admin: 02/28/21 06:19 Dose: 20 mg Documented by: GERMAN Risperidone (Risperidone 0.25 Mg Tablet) 0.25 mg PO BID [facility] Last Admin: 02/28/21 08:37 Dose: 0.25 mg Documented by: SHIKHA Senna (Sennosides 8.6 Mg Tablet) 17.2 mg PO BEDTIME PRN PRN Reason: Constipation Sodium Chloride (0.9 % Sodium Chloride Flush 3 Ml Syringe) 3 ml IVFLUSH QSHIFT [facility] Last Admin: 02/28/21 08:38 Dose: 3 ml Documented by: SHIKHA Labs CBC & Chem 7: 02/28/21 06:00 02/28/21 06:00 Labs: Laboratory Results - last 24 hr 02/27/21 02/27/21 02/27/21 16:04 16:42 16:42 MCV 96.3 MCH 32.4 MCHC 33.6 RDW 13.5 Plt Count 329 MPV 9.5 Immature Gran % (Auto) 0.3 Neut % (Auto) 67.6 Lymph % (Auto) 23.8 Gonzales % (Auto) 7.2 Eos % (Auto) 0.6 Baso % (Auto) 0.5 Lymph # (Auto) 2.4 Gonzales # (Auto) 0.7 Eos # (Auto) 0.1 Baso # (Auto) 0.1 Abs Immat Gran (auto) 0.03 Absolute Neuts (auto) 6.9 Absolute Nucleated RBC 0.000 Nucleated RBC % (auto) 0.0 D-Dimer Anion Gap 12 Estim Creat Clear Calc 54.1 Estimated GFR 49 Random Glucose 91 Lactic Acid Calcium 9.5 Magnesium 2.0 Total Bilirubin 0.2 Direct Bilirubin < 0.2 AST 20 ALT 12 Alkaline Phosphatase 116 Troponin I High Sens B-Natriuretic Peptide Total Protein 6.5 Albumin 4.2 COVID-19 ([facility]) Negative COVID-19 Clin Com See Note 02/27/21 02/27/21 02/27/21 16:42 16:42 16:42 MCV MCH MCHC RDW Plt Count MPV Immature Gran % (Auto) Neut % (Auto) Lymph % (Auto) Gonzales % (Auto) Eos % (Auto) Baso % (Auto) Lymph # (Auto) Gonzales # (Auto) Eos # (Auto) Baso # (Auto) Abs Immat Gran (auto) Absolute Neuts (auto) Absolute Nucleated RBC Nucleated RBC % (auto) D-Dimer 212 Anion Gap Estim Creat Clear Calc Estimated GFR Random Glucose Lactic Acid 0.6 Calcium Magnesium Total Bilirubin Direct Bilirubin AST ALT Alkaline Phosphatase Troponin I High Sens < 3.5 B-Natriuretic Peptide < 10 Total Protein Albumin COVID-19 ([facility]) COVID-19 [facility] 02/28/21 02/28/21 06:00 06:00 MCV 98.4 H MCH 32.5 MCHC 33.1 RDW 13.8 Plt Count 292 MPV 9.7 Immature Gran % (Auto) 0.2 Neut % (Auto) 57.4 Lymph % (Auto) 30.9 Gonzales % (Auto) 9.9 Eos % (Auto) 0.9 Baso % (Auto) 0.7 Lymph # (Auto) 1.7 Gonzales # (Auto) 0.6 Eos # (Auto) 0.1 Baso # (Auto) 0.0 Abs Immat Gran (auto) 0.01 Absolute Neuts (auto) 3.2 Absolute Nucleated RBC 0.000 Nucleated RBC % (auto) 0.0 D-Dimer Anion Gap 12 Estim Creat Clear Calc 56.7 Estimated GFR 52 Random Glucose 105 Lactic Acid Calcium 8.6 D Magnesium Total Bilirubin Direct Bilirubin AST ALT Alkaline Phosphatase Troponin I High Sens B-Natriuretic Peptide Total Protein Albumin COVID-19 ([facility]) COVID-19 Clin Com Assessment and Plan (1) COPD exacerbation: Status: Acute Assessment and Plan: 56F presented with sob acute Hypoxic respiratory failure secondary to COPD/asthma exacerbation Patient continues to smoke, has been councilled to stop intolerant to steroids azithro nebs pulm wean o2 depression/anxiety continue home meds Quality Stroke Does the patient have a stroke diagnosis?: No VTE Prior VTE?: No VTE Risk Level:: Medical - moderate - high VTE Device Contraindication: Treatment Not Indicated VTE Drug Contraindication: N/A - Med Ordered
[2021-02-28] MEDS: Furosemide 20 MG/2 ML VIAL IVPUSH (12:19)
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
[2021-02-28] MEDS: clonazePAM 1 MG TABLET PO ×2 (15:28→23:33)
[2021-02-28] MEDS: Montelukast Sodium 10 MG TABLET PO (15:28)
[2021-02-28] MEDS: Cholecalciferol (Vitamin D3) 25 MCG TABLET 125 MCG PO (15:28)
[2021-02-28] MEDS: Aspirin Enteric Coated 81 MG TABLET.DR PO (15:28)
[2021-02-28] MEDS: Famotidine 20 MG TABLET PO (19:31)
[2021-02-28] MEDS: busPIRone HCl 5 MG TABLET 15 MG PO (19:31)
[2021-02-28] MEDS: Azithromycin 500 MG TABLET PO (23:33)
[2021-03-01] MEDS: Calcium Carbonate 750 MG TAB.CHEW PO (00:30)
[2021-03-01 04:00] VITALS: BP 116/74; PULSE 79; RESP 18; TEMP 37; O2SAT 98
[2021-03-01 04:28] VITALS: RESP 18
[2021-03-01] MEDS: Morphine Sulfate 4 MG/ML CARTRIDGE 1 MG IVPUSH (04:28)
[2021-03-01] MEDS: Omeprazole 20 MG CAPSULE.DR PO (05:37)
[2021-03-01] MEDS: Heparin Sodium,Porcine 5,000 UNIT/ML VIAL 5000 UNIT SUBCUT (05:37)
[2021-03-01 08:00] VITALS: BP 114/75; PULSE 90; RESP 17; TEMP 36.3; O2SAT 95
[2021-03-01] MEDS: risperiDONE 0.25 MG TABLET PO (08:28)
[2021-03-01] MEDS: busPIRone HCl 5 MG TABLET 15 MG PO (08:28)
[2021-03-01] MEDS: Aspirin Enteric Coated 81 MG TABLET.DR PO (08:28)
[2021-03-01] MEDS: Gabapentin 600 MG TABLET PO (08:29)
[2021-03-01] MEDS: Baclofen 20 MG TABLET PO (08:29)
[2021-03-01] MEDS: 0.9 % Sodium Chloride Flush 3 ML SYRINGE IVFLUSH (08:29)
[2021-03-01] MEDS: Montelukast Sodium 10 MG TABLET PO (08:29)
[2021-03-01] MEDS: Famotidine 20 MG TABLET PO (08:29)
[2021-03-01] MEDS: Acetaminophen 325 MG TABLET 650 MG PO (08:54)
[2021-03-01] MEDS: clonazePAM 1 MG TABLET PO (08:55)
--- NOTE | 2021-03-01 10:18 | PM.DS ---
DS: Providers Provider Date of Service: 03/01/21 Date of admission: 02/27/21 21:05 Primary care physician: Miller Villalpando MD Consults: 02/27/21 20:51 Consult to Pulmonology Routine Consulting Provider: Diego Hartley Reason for consultation: COPD/bullous emphysema; cough; allergic to steroids. DS: Summary Hospital Course Hospital Course: Patient was admitted for acute hypoxic respiratory failure secondary to COPD/asthma exacerbation. Patient is intolerant of steroids due to psychiatric symptoms. She was treated with bronchodilators and azithromycin. Her symptoms improved and she was able to be weaned off oxygen. She has been advised to stop smoking. She will be discharged home and follow up with Dr. Hartley of pulmonary. Time Spent with Patient Time attestation: Total time spent providing and/or coordinating discharge services: Discharge coordination time: Greater than 30 minutes Quality: Stroke Does the patient have a stroke diagnosis?: No Physical Exam Vital Signs: Vital Signs: Last Vital Signs Temp 97.3 F 03/01/21 08:00 Pulse 90 03/01/21 08:00 Resp 17 03/01/21 08:00 BP 114/75 03/01/21 08:00 Pulse Ox 95 03/01/21 08:00 Body Mass Index 24.7 General: AO X 3, no acute distress Resp: CTA bilateral, no accessory muscles used CVS: S1,S2,RRR GI: soft, non tender, non distended Neuro: motor grossly intact, alert Psych: appropriate affect, appropriate insight DS: Data Data Completed and Pending Labs on day of discharge: Preliminary micro results at discharge 02/27/21 16:42 Blood Culture - Preliminary Blood - Venous No growth after 24 hours. 02/27/21 16:42 Blood Culture - Preliminary Blood - Venous No growth after 24 hours. Discharge Plan Discharge Patient Disposition: Home, Self-Care Discharge Diagnosis: copd Referrals: Miller Villalpando MD [Primary Care Provider] - 1 Week Discharge Medications: Continued amoxicillin-pot clavulanate [Augmentin] 875-125 mg tablet 1 tab PO BID 10 Days Qty: 20 RF: 0 cholecalciferol (vitamin D3) [Vitamin D3] 125 mcg (5,000 unit) Tablet 125 mcg PO DAILY RF: 0 gabapentin 600 mg tablet 600 mg PO TID RF: 0 montelukast 10 mg tablet 10 mg PO DAILY RF: 0 buspirone 15 mg tablet 15 mg PO BID RF: 0 risperidone 0.25 mg tablet 1 tab PO BID RF: 0 omeprazole 20 mg capsule,delayed release(DR/EC) 1 cap PO DAILY@0630 RF: 0 Anoro Ellipta 62.5-25 mcg/actuation blister with device 1 puff PO DAILY RF: 0 Daliresp 250 mcg tablet 1 tab PO DAILY RF: 0 azithromycin 250 mg tablet 250 mg PO MOWEFR@0900 RF: 0 ibuprofen 800 mg tablet 800 mg PO Q8H PRN (Reason: Pain (Scale Score 1-3)) RF: 0 biotin 1 mg tablet 1 mg PO DAILY RF: 0 aspirin [Adult Low Dose Aspirin] 81 mg tablet,delayed release (DR/EC) 81 mg PO DAILY RF: 0 One-A-Day Women's 50 Plus 400-20 mcg tablet 1 tab PO DAILY RF: 0 baclofen 20 mg tablet 20 mg PO BID 30 Days Qty: 60 RF: 12 bupropion HCl 75 mg tablet 75 mg PO QAM RF: 0 Discharge Orders: Discharge Order (Routine); Ordered 03/01/21 Ordered By: Virgilio Kamara Diet: advance to usual diet Activity on Discharge: As tolerated Stand Alone Forms: Patient Portal Discharge page Care Plan Goals: recovery Health Concerns: copd Plan of Treatment: follow up with pulm, avoid smoking Assessment: see above
[2021-03-01 10:37] VITALS: O2SAT 96
--- NOTE | 2021-03-01 12:08 | MHC.CM.PN ---
pt dcd home no servcealonzos
== END 2021-03-01 10:43 | disposition home or self-care (01) | DRG 190 ==
LOC: HO.ED 20:27 → HO.EDOVER 21:37 → HO.IMC 21:46
PROVIDERS: Physician Assistant; Admitting Provider Hospitalist; Emergency Provider Internal Medicine; PCP Internal Medicine; Visit Provider Internal Medicine
DX: J43.8 Other emphysema (principal); J96.01 Acute respiratory failure with hypoxia; J45.901 Unspecified asthma with (acute) exacerbation; K21.9 Gastro-esophageal reflux disease without esophagitis; G89.4 Chronic pain syndrome; F41.9 Anxiety disorder, unspecified; G47.30 Sleep apnea, unspecified; F32.A Depression, unspecified; Z20.822 Contact with and (suspected) exposure to COVID-19; F17.210 Nicotine dependence, cigarettes, uncomplicated; Z71.6 Tobacco abuse counseling; Z79.1 Long term (current) use of non-steroidal anti-inflammatories (NSAID); Z79.82 Long term (current) use of aspirin; Z79.899 Other long term (current) drug therapy
CPT/HCPCS: 36415; 71045; 71250; 80048; 80076; 83605; 83735; 83880; 84484; 85025; 85379; 87040; 87635; 93005; 94645; 99285; J0456; J1940; J2270; J3475

== ENCOUNTER 2021-03-04 12:12 | Outpatient (REF) | payer MEDICARE, MEDICAID, SELFPAY ==
--- NOTE | ~2021-03-04 | XR_ITS ---
EXAMINATION: XR KNEE, RIGHT XR KNEE, LEFT CLINICAL INFORMATION: Pain COMPARISON: None TECHNIQUE: 2 views of each knee, including AP upright view. FINDINGS: Right knee: No fracture or subluxation. Moderate medial compartment joint space narrowing. Small tricompartmental marginal osteophytes. No joint effusion. Soft tissue swelling of the knee. Left knee: No fracture or subluxation. Mild medial compartment joint space narrowing with small tricompartmental marginal osteophytes. No joint effusion. The soft tissues are unremarkable. XR/XR knee LT 2V IMPRESSION: Mild tricompartmental degenerative changes of both knees.
--- NOTE | ~2021-03-04 | XR_ITS ---
EXAMINATION: XR KNEE, RIGHT XR KNEE, LEFT CLINICAL INFORMATION: Pain COMPARISON: None TECHNIQUE: 2 views of each knee, including AP upright view. FINDINGS: Right knee: No fracture or subluxation. Moderate medial compartment joint space narrowing. Small tricompartmental marginal osteophytes. No joint effusion. Soft tissue swelling of the knee. Left knee: No fracture or subluxation. Mild medial compartment joint space narrowing with small tricompartmental marginal osteophytes. No joint effusion. The soft tissues are unremarkable. 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
== END 2021-03-04 12:13 | disposition home or self-care (01) ==
LOC: HO.XRAY 12:12
PROVIDERS: Visit Provider Internal Medicine
DX: M25.561 Pain in right knee (principal); M25.562 Pain in left knee
CPT/HCPCS: 73560

== ENCOUNTER 2021-03-11 18:34 | Emergency (ER) | payer MEDICARE, MEDICAID, SELFPAY ==
[2021-03-11 19:50] VITALS: BP 103/73; PULSE 95; RESP 16; TEMP 36.3; O2SAT 96; BMI 22.7
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
[2021-03-11] MEDS: Lidocaine HCl 1 % 20 ML VIAL 5 ML SUBCUT (21:42)
[2021-03-11] MEDS: Diphth,Pertus(ACell),Tet Adult 0.5 ML SYRINGE IM (21:43)
== END 2021-03-11 21:51 | disposition home or self-care (01) ==
PROVIDERS: Emergency Provider Internal Medicine; PCP Internal Medicine
DX: S61.211A Laceration without foreign body of left index finger without damage to nail, initial encounter (principal); W26.0XXA Contact with knife, initial encounter; Y93.9 Activity, unspecified; Y92.030 Kitchen in apartment as the place of occurrence of the external cause; Y99.9 Unspecified external cause status
CPT/HCPCS: 12001; 90471; 90715; 99283; 99284

== ENCOUNTER → 2021-04-11 11:03 | Outpatient (BNVA) | payer MEDICARE, MEDICAID, SELFPAY | PROVIDERS: PCP Internal Medicine; Visit Provider Hospitalist | DX: G47.33 Obstructive sleep apnea (adult) (pediatric) (principal); J43.2 Centrilobular emphysema; R09.1 Pleurisy; M19.90 Unspecified osteoarthritis, unspecified site; Z99.89 Dependence on other enabling machines and devices | CPT/HCPCS: 99212 ==

== ENCOUNTER 2021-06-13 14:51 | Outpatient (REF) | payer MEDICARE, MEDICAID, SELFPAY ==
--- NOTE | ~2021-06-13 | MM_ITS ---
EXAMINATION: MM DIAGNOSTIC DIGITAL BREAST TOMOSYNTHESIS, BILATERAL US TARGETED BREAST ULTRASOUND, LEFT CLINICAL INFORMATION: History of right breast mass 8 o'clock position with benign biopsy result. Patient with bilateral breast implants. The lifetime risk of breast cancer based on the Tyrer-Cuzick Model is 4.5%. COMPARISON: Mammography: 04/01/2020 and studies dating back to 10/18/2017. TECHNIQUE: Digital mammography is performed in craniocaudal and mediolateral oblique views. Digital breast tomosynthesis is performed in implant-displaced craniocaudal and implant-displaced mediolateral oblique views. Synthesized 2-D images are generated from the tomosynthesis. Computer-aided detection (CAD) is performed for this exam. Targeted left breast ultrasound. FINDINGS: There are scattered areas of fibroglandular density (ACR BI-RADS breast composition Category b). The implant contours are unremarkable. There is a stable parenchymal pattern seen within the right breast with no new abnormal dominant mass or suspicious grouping of microcalcifications identified. Within the superior anterior aspect of the left breast approximately 1.5 cm from the nipple, there is a circumscribed density with question of fatty cleft which may represent intramammary lymph node. Targeted ultrasound evaluation of the anterior aspect of the left breast was then performed with no abnormal cystic or solid mass appreciated. No region of abnormal distal sound shadowing was seen. Results are discussed with the patient at time of visit. MM/MM tomosynthesis diag imp BI IMPRESSION: Benign-appearing circumscribed density anterior aspect of the left breast for which 6-month followup study is recommended. ASSESSMENT: BI-RADS 3: Probably Benign. RECOMMENDATION: Diagnostic mammography in 6 months. This patient's information was entered into a reminder system with a target due date for their next mammogram.
--- NOTE | ~2021-06-13 | US_ITS ---
EXAMINATION: US DIAGNOSTIC ULTRASOUND BREAST, LEFT CLINICAL INFORMATION: Left breast density. COMPARISON: Mammography of same day and studies dating back to October 18, 2017. TECHNIQUE: Ultrasound of the breast is performed with real-time sparrow scale imaging and color Doppler. FINDINGS: There is no focal suspicious finding. There is no solid mass, architectural abnormality, duct ectasia, or edema in the soft tissue planes. Results are discussed with the patient at time of visit. US/US breast LT limited IMPRESSION: No abnormal ultrasound abnormality appreciated. ASSESSMENT: BI-RADS 3: Probably Benign due to mammographic findings. RECOMMENDATION: Diagnostic mammography in 6 months. This patient's information was entered into a reminder system with a target due date for their next mammogram.
== END 2021-06-13 14:52 | disposition home or self-care (01) ==
LOC: HO.MAMMO 14:51
PROVIDERS: PCP Nurse Practitioner Acute Care; Visit Provider Nurse Practitioner Acute Care
DX: R92.2 Inconclusive mammogram (principal); Z87.2 Personal history of diseases of the skin and subcutaneous tissue; Z98.82 Breast implant status
CPT/HCPCS: 76642; 77062; 77066

== ENCOUNTER → 2021-06-20 13:12 | Outpatient (BNVA) | payer MEDICARE, MEDICAID, SELFPAY | PROVIDERS: PCP Internal Medicine; Visit Provider Hospitalist | DX: G47.33 Obstructive sleep apnea (adult) (pediatric) (principal); J43.2 Centrilobular emphysema; U07.1 COVID-19; R09.1 Pleurisy; M19.90 Unspecified osteoarthritis, unspecified site; Z99.89 Dependence on other enabling machines and devices | CPT/HCPCS: Q3014 ==

== ENCOUNTER 2021-07-10 15:29 | Outpatient (REF) | payer MEDICARE, MEDICAID, SELFPAY ==
[2021-07-10 15:50] LABS: MANUAL DIFF FLAG NO
[2021-07-10 15:55] LABS: Basophils Absolute Auto 0.1 X10*3/uL (0.0-0.2); Basophils Percent Auto 0.8 % (0-2); Eosinophils Absolute Auto 0.1 X10*3/uL (0.0-0.4); Eosinophils Percent Auto 1.2 % (0-4); Hematocrit 38.9 % (37.0-47.0); Imm Gran Abs Auto 0.01 X10*3/uL (0.00-0.03); Imm Gran Pct Auto 0.2 % (0.0-0.4); Lymphocytes Absolute Auto 1.7 X10*3/uL (1.2-4.9); Mean Corpuscular HGB Conc 33.4 g/dl (31.0-35.0); Mean Corpuscular Volume 98.7 fL (80.0-98.0); Monocytes Absolute Auto 0.5 X10*3/uL (0.1-1.2); Monocytes Percent Auto 8.2 % (2-11); Neutrophils Percent Auto 62.6 % (45-73); Platelet Count 315 X10*3/uL (160-400); Red Blood Count 3.94 X10*6/uL (4.20-5.50); Red Cell Distribution Width 14.6 % (11.0-16.0); White Blood Count 6.5 X10*3/uL (4.8-10.8)
[2021-07-10 16:08] LABS: Estimated Average Glucose 111 mg/dL; Hemoglobin A1c % 5.5 %
[2021-07-10 16:19] LABS: Alanine Aminotransferase 12 U/L (0-31); Albumin Level 4.4 g/dL (3.5-5.0); Alkaline Phosphatase 87 U/L (39-117); Anion Gap 14 (12-20); Aspartate Amino Transferase 19 U/L (5-31); Bilirubin Direct < 0.2 mg/dL (0.0-0.5); Bilirubin Total 0.4 mg/dL (0.0-1.0); Blood Urea Nitrogen 9 mg/dL (9-16); Calcium 9.8 mg/dL (8.4-10.2); Carbon Dioxide 30 mmol/L (22-29); Chloride 100 mmol/L (96-108); Cholesterol 211 mg/dL; Estimated Glomerular Filt Rate 49; Glucose Fasting 91 mg/dL (60-99); HDL Cholesterol 51 mg/dL; LDL Cholesterol Calculated 138 mg/dl; Potassium 4.8 mmol/L (3.3-5.1); Sodium 139 mmol/L (135-145); Total Protein 6.7 g/dL (6.5-8.0); Triglycerides 114 mg/dL
[2021-07-10 16:41] LABS: TSH reflex Free T4 0.56 uIU/mL (0.32-4.0)
[2021-07-10 16:53] LABS: Erythrocyte Sedimentation Rate 14 MM/HR (0-20)
[2021-07-10 17:08] LABS: Folate > 20.0 ng/mL (> or = 4.0); Vitamin B12 545 pg/mL (200-900)
[2021-07-11 12:52] LABS: Anti Nuclear Antibody Screen NEGATIVE (NEGATIVE)
[2021-07-15 00:02] LABS: Cyclic Citrullinated Peptide <16 UNITS
[2021-07-15 13:21] LABS: Vitamin D 25-OH, D2 <4 ng/mL; Vitamin D 25-OH, D3 41 ng/mL; Vitamin D 25-OH, Total 41 ng/mL (30-100)
== END 2021-07-10 15:30 | disposition home or self-care (01) ==
LOC: HO.LAB 15:29
PROVIDERS: Absent Provider Hospitalist; PCP Internal Medicine; Visit Provider Nurse Practitioner Acute Care
DX: I10 Essential (primary) hypertension (principal); G89.4 Chronic pain syndrome; J44.1 Chronic obstructive pulmonary disease with (acute) exacerbation; M19.90 Unspecified osteoarthritis, unspecified site
CPT/HCPCS: 36415; 80053; 80061; 80076; 82248; 82306; 82607; 82746; 83036; 84443; 85025; 85652; 86038; 86039; 86200

== ENCOUNTER 2021-08-18 09:45 | Outpatient (REF) | payer MEDICARE, MEDICAID, SELFPAY ==
--- NOTE | ~2021-08-18 | XR_ITS ---
EXAMINATION: XR CHEST CLINICAL INFORMATION: Cough, unspecified. COMPARISON: Chest done on 02/27/2021. TECHNIQUE: 2 views of the chest were obtained. FINDINGS: Biapical pleuroparenchymal opacities are noted, most consistent with pleuroparenchymal scar. Hyperinflated lung cabrera are present predominantly at both upper lobes likely represent emphysematous disease, unchanged since prior study. No evidence of any superimposed new airspace disease to suspect pneumonia. The cardiac mediastinal silhouette is within normal limit. No evidence of any pleural effusion or pneumothorax. The visualized upper abdomen is unremarkable. XR/XR chest 2V IMPRESSION: Evidence of emphysematous disease predominantly involving both upper lobes without any radiographic evidence of superimposed pneumonia. No significant change since 02/27/2021.
== END 2021-08-18 09:46 | disposition home or self-care (01) ==
LOC: HO.XRAY 09:45
PROVIDERS: PCP Internal Medicine; Visit Provider Hospitalist
DX: R05.9 Cough, unspecified (principal)
CPT/HCPCS: 71046

== ENCOUNTER 2021-09-11 11:00 | Outpatient (REF) | payer MEDICARE, MEDICAID, SELFPAY ==
[2021-09-13 02:07] LABS: Lyme Abs Screen <0.90 index
== END 2021-09-11 11:01 | disposition home or self-care (01) ==
LOC: HO.LAB 11:00
PROVIDERS: Absent Provider Psychiatry & Neurology Neurology; PCP Internal Medicine; Visit Provider Hospitalist
DX: G47.33 Obstructive sleep apnea (adult) (pediatric) (principal); J43.2 Centrilobular emphysema; R09.1 Pleurisy; M19.90 Unspecified osteoarthritis, unspecified site; Z99.89 Dependence on other enabling machines and devices; Z87.891 Personal history of nicotine dependence
CPT/HCPCS: 36415; 82550; 86617; 86618; 99212

== ENCOUNTER 2021-09-16 09:42 | Outpatient (REF) | payer MEDICARE, MEDICAID, SELFPAY ==
[2021-09-16 16:55] LABS: CT PCR NOT DETECTED (Not Detect.); NG PCR NOT DETECTED (Not Detect.)
[2021-09-22 09:05] LABS: HPV 16 RNA NOT DETECTED (NOT DETECTED); HPV mRNA E6/E7 rflx Detected (Not Detected)
== END 2021-09-16 09:43 | disposition home or self-care (01) ==
LOC: HO.LAB 09:42
PROVIDERS: PCP Internal Medicine; Visit Provider Advanced Practice Midwife
DX: Z01.419 Encounter for gynecological examination (general) (routine) without abnormal findings (principal); Z11.51 Encounter for screening for human papillomavirus (HPV); Z20.2 Contact with and (suspected) exposure to infections with a predominantly sexual mode of transmission; A63.0 Anogenital (venereal) warts
CPT/HCPCS: 87491; 87591; 87624; 87625; 88142

== ENCOUNTER 2021-10-30 10:04 | Outpatient (REF) | payer MEDICARE, MEDICAID, SELFPAY ==
--- NOTE | ~2021-10-30 | XR_ITS ---
EXAMINATION: XR SACRUM COCCYX XR LEFT HIP XR LUMBAR SPINE. CLINICAL INFORMATION: Low back pain, left hip pain. COMPARISON: None. TECHNIQUE: Lumbar spine 3 views. Left hip 2 views. Sacrum and coccyx 2 views. FINDINGS: LUMBAR SPINE: There is normal lumbar lordosis. The vertebral heights, alignment and disc heights are normal. There is no visible acute fracture, dislocation or subluxation seen. SI joints are symmetrical and normal. The prevertebral soft tissues are normal. SACRUM AND COCCYX: There is no visible fracture or bony abnormality. The soft tissues are normal. The presacral soft tissues are normal. LEFT HIP: There is no visible acute fracture, dislocation or subluxation seen. There is no bony erosive changes. The soft tissues are normal. XR/XR hip LT min 2V IMPRESSION: Mild endplate spondylosis L3-L4 disc level. No visible acute fracture or dislocation seen. The SI joints are normal. Unremarkable left hip exam. Unremarkable sacrum and coccyx. The SI joints are unremarkable.
--- NOTE | ~2021-10-30 | XR_ITS ---
EXAMINATION: XR SACRUM COCCYX XR LEFT HIP XR LUMBAR SPINE. CLINICAL INFORMATION: Low back pain, left hip pain. COMPARISON: None. TECHNIQUE: Lumbar spine 3 views. Left hip 2 views. Sacrum and coccyx 2 views. FINDINGS: LUMBAR SPINE: There is normal lumbar lordosis. The vertebral heights, alignment and disc heights are normal. There is no visible acute fracture, dislocation or subluxation seen. SI joints are symmetrical and normal. The prevertebral soft tissues are normal. SACRUM AND COCCYX: There is no visible fracture or bony abnormality. The soft tissues are normal. The presacral soft tissues are normal. LEFT HIP: There is no visible acute fracture, dislocation or subluxation seen. There is no bony erosive changes. The soft tissues are normal. XR/XR sacrum coccyx min 2V IMPRESSION: Mild endplate spondylosis L3-L4 disc level. No visible acute fracture or dislocation seen. The SI joints are normal. Unremarkable left hip exam. Unremarkable sacrum and coccyx. The SI joints are unremarkable.
--- NOTE | ~2021-10-30 | XR_ITS ---
EXAMINATION: XR SACRUM COCCYX XR LEFT HIP XR LUMBAR SPINE. CLINICAL INFORMATION: Low back pain, left hip pain. COMPARISON: None. TECHNIQUE: Lumbar spine 3 views. Left hip 2 views. Sacrum and coccyx 2 views. FINDINGS: LUMBAR SPINE: There is normal lumbar lordosis. The vertebral heights, alignment and disc heights are normal. There is no visible acute fracture, dislocation or subluxation seen. SI joints are symmetrical and normal. The prevertebral soft tissues are normal. SACRUM AND COCCYX: There is no visible fracture or bony abnormality. The soft tissues are normal. The presacral soft tissues are normal. LEFT HIP: There is no visible acute fracture, dislocation or subluxation seen. There is no bony erosive changes. The soft tissues are normal. XR/XR lumbar spine 2-3V IMPRESSION: Mild endplate spondylosis L3-L4 disc level. No visible acute fracture or dislocation seen. The SI joints are normal. Unremarkable left hip exam. Unremarkable sacrum and coccyx. The SI joints are unremarkable.
== END 2021-10-30 10:05 | disposition home or self-care (01) ==
LOC: HO.XRAY 10:04
PROVIDERS: PCP Internal Medicine; Visit Provider Nurse Practitioner Family
DX: M25.552 Pain in left hip (principal); M54.50 Low back pain, unspecified
CPT/HCPCS: 72100; 72220; 73502

== ENCOUNTER 2021-11-05 09:16 | Outpatient (REF) | payer MEDICARE, MEDICAID, SELFPAY ==
[2021-11-05 09:38] LABS: MANUAL DIFF FLAG NO
[2021-11-05 09:41] LABS: Venous Blood Gas Refer to POC result
[2021-11-05 09:56] LABS: VBG Base Excess 1.8 mmol/L; VBG HCO3 25 mmol/L (22-26); VBG pCO2 36 mmHg; VBG pH 7.45 (7.32-7.43); VBG pO2 43 mmHg
[2021-11-05 10:08] LABS: Basophils Absolute Auto 0.1 X10*3/uL (0.0-0.2); Basophils Percent Auto 0.8 % (0-2); Eosinophils Absolute Auto 0.1 X10*3/uL (0.0-0.4); Eosinophils Percent Auto 1.6 % (0-4); Hematocrit 39.4 % (37.0-47.0); Hemoglobin 13.3 g/dl (12.0-16.0); Imm Gran Abs Auto 0.01 X10*3/uL (0.00-0.03); Imm Gran Pct Auto 0.2 % (0.0-0.4); Lymphocytes Absolute Auto 1.8 X10*3/uL (1.2-4.9); Lymphocytes Percent Auto 29.1 % (20-40); Mean Corpuscular HGB Conc 33.8 g/dl (31.0-35.0); Mean Corpuscular Hemoglobin 33.8 pg (27.0-33.0); Mean Corpuscular Volume 100.3 fL (80.0-98.0); Monocytes Absolute Auto 0.6 X10*3/uL (0.1-1.2); Monocytes Percent Auto 8.8 % (2-11); Neutrophils Absolute Auto 3.8 x10*3/uL (2.0-8.3); Neutrophils Percent Auto 59.5 % (45-73); Platelet Count 339 X10*3/uL (160-400); Red Blood Count 3.93 X10*6/uL (4.20-5.50); Red Cell Distribution Width 13.8 % (11.0-16.0); White Blood Count 6.3 X10*3/uL (4.8-10.8)
[2021-11-05 10:36] LABS: Anion Gap 12 (12-20); Blood Urea Nitrogen 9 mg/dL (9-16); Calcium 9.3 mg/dL (8.4-10.2); Carbon Dioxide 27 mmol/L (22-29); Chloride 103 mmol/L (96-108); Estimated Glomerular Filt Rate 60; Glucose Random 101 mg/dL (60-115); Potassium 4.4 mmol/L (3.3-5.1); Sodium 138 mmol/L (135-145)
== END 2021-11-05 09:17 | disposition home or self-care (01) ==
LOC: HO.LAB 09:16
PROVIDERS: PCP Internal Medicine; Visit Provider Hospitalist
DX: G89.12 Acute post-thoracotomy pain (principal); G89.4 Chronic pain syndrome; B94.8 Sequelae of other specified infectious and parasitic diseases; N90.9 Noninflammatory disorder of vulva and perineum, unspecified; M19.90 Unspecified osteoarthritis, unspecified site; J44.1 Chronic obstructive pulmonary disease with (acute) exacerbation
CPT/HCPCS: 36415; 56605; 56606; 80048; 82803; 85025; 88305; 99212

== ENCOUNTER 2021-11-06 12:13 | Outpatient (REF) | payer MEDICARE, MEDICAID, SELFPAY ==
[2021-11-06 14:41] LABS: CDiff Gene PCR NEGATIVE (Negative)
== END 2021-11-06 12:14 | disposition home or self-care (01) ==
LOC: HO.LNP 12:13
PROVIDERS: Visit Provider Nurse Practitioner Acute Care
DX: K52.9 Noninfective gastroenteritis and colitis, unspecified (principal)
CPT/HCPCS: 87493

== ENCOUNTER → 2021-11-10 09:25 | Outpatient (BNVA) | payer MEDICARE, MEDICAID, SELFPAY | PROVIDERS: PCP Internal Medicine; Visit Provider Hospitalist | DX: G47.33 Obstructive sleep apnea (adult) (pediatric) (principal); J43.2 Centrilobular emphysema; R09.1 Pleurisy; R91.8 Other nonspecific abnormal finding of lung field; M19.90 Unspecified osteoarthritis, unspecified site; Z99.89 Dependence on other enabling machines and devices; Z79.899 Other long term (current) drug therapy | CPT/HCPCS: 99212 ==

== ENCOUNTER → 2021-11-26 08:19 | Outpatient (BNVA) | payer MEDICARE, MEDICAID, SELFPAY | PROVIDERS: PCP Internal Medicine; Visit Provider Obstetrics & Gynecology | DX: N90.9 Noninflammatory disorder of vulva and perineum, unspecified (principal) | CPT/HCPCS: 99212 ==

== ENCOUNTER 2021-12-19 10:56 | Outpatient (REF) | payer MEDICARE, MEDICAID, SELFPAY ==
--- NOTE | ~2021-12-19 | MM_ITS ---
EXAMINATION: MM DIAGNOSTIC DIGITAL BREAST TOMOSYNTHESIS, LEFT CLINICAL INFORMATION: Short interval follow-up questionable asymmetric density retroareolar left breast. TC score 4%. COMPARISON: Mammography: 06/13/2021, outside mammography 02/14/2020, 10/18/2017 ([facility]). TECHNIQUE: Digital mammography is performed in craniocaudal and mediolateral oblique views. Digital breast tomosynthesis is performed in implant-displaced craniocaudal and implant-displaced mediolateral oblique views. Synthesized 2D images are generated from the tomosynthesis. Computer-aided detection (CAD) is performed for this exam. Additional left implant displaced MLO view is provided. FINDINGS: There are scattered areas of fibroglandular density (ACR BI-RADS breast composition Category b). The implant contours are smooth and similar to prior studies. There is no persistent asymmetric density retroareolar left breast. The finding for follow-up is not demonstrated. No developing density or interval mass or architectural abnormality. No abnormal calcifications. The axilla and skin contours are unremarkable. Results are provided to the patient at time of visit by the technologist. MM/MM tomosynthesis diag imp LT IMPRESSION: No mammographic evidence of malignancy. ASSESSMENT: BI-RADS 1: Negative RECOMMENDATION: Routine annual mammography screening, due in 6 months. This patient's information was entered into a reminder system with a target due date for their next mammogram.
== END 2021-12-19 10:57 | disposition home or self-care (01) ==
LOC: HO.MAMMO 10:56
PROVIDERS: PCP Internal Medicine; Visit Provider Nurse Practitioner Acute Care
DX: R92.2 Inconclusive mammogram (principal)
CPT/HCPCS: 77061; 77065

== ENCOUNTER 2021-12-25 09:00 | Outpatient (RCR) | payer MEDICARE, MEDICAID, SELFPAY ==
--- NOTE | 2021-10-30 09:58 | MHC.PT.EP ---
[facility] [place] Office [place] Office [place] Office [address] [place] [address] [phone] F: [phone] F: [phone] F: [phone] F: [phone] Physical Therapy Plan of Care Date of Evaluation: Date of Surgery: Diagnosis: low back pain Assessment: 56 y/o female referred to PT with LBP. She reports LBP and L hip pain for several years most likely following R foot surgery/ stress fx and having to ambulate in walking boot for several months. It has been worsening and limiting her ability to walk, swim, ascend/descend stairs, sleep, and sit > 60 min. Of note, PMH significant for COPD, osteopenia, HTN, balance, foot surgery B. Examination shows decreased lumbar and hip AROM (causing pain on L hip), decreased hip strength, increased TTP L iliac crest/ QL/bursa/gluts, impaired balance, and impaired gait pattern. S/s consistent with L greater trochanteric bursitis, hip OA, and lumbar derangement. Recommend PT 2x/week for 6 weeks to address impairments, implement HEP, and optimize functional mobility. Frequency and Duration: The patient will be seen 2x/week for 6 weeks Short Term Goals: 3 weeks 1. I with HEP 2. Pt will be able to sit in neutral position with even weightbearing through hips and pain < 3/10 3. Improve L hip AROM by 5 degrees to improve functional mobility Unit Secy Goals: 6 weeks 1. I with HEP and self management of sx 2. Improve L hip strength to 4/5 grossly to faciliate ascending/descending stairs with pain < 3/10 3. Pt will be able to ambulate 1 miles with pain < 3/10 Treatment Plan: Modalities to reduce pain, spasms and effusion. Manual therapy to restore motion and function. Therapeutic exercise to improve strength and flexibility. Neuromuscular re-education for posture and balance. Therapeutic activities to return to functional activities of daily living. Electronically signed by: Deyanira Vaughan PT Please sign and return to therapist. Thank you for your referral.
--- NOTE | 2022-01-27 08:30 | MHC.PT.DC ---
[facility] [place] [facility] [place] [facility] [place] [facility] [address] [place] [address] [phone] F: [phone] F: [phone] F: [phone] F: [phone] Physical Therapy Discharge Report Diagnosis: low back pain Date of Surgery: Date of Evaluation: 10/30/21 Date of Discharge: 01/27/22 Treatments to Date: 8 Cancellations to Date: 6 No Shows to Date: 2 Discharge Status: Independent with HEP Discharge Summary: Pt d/c secondary to noncompliance with scheduling policy. At time of last visit: Performed gentle strengthening to tolerance today. With trial of bridges, increased instability noted at pelvis and challenged to maintain neutral position, therefore added isometrics of glut, HS, and progress TAC isometrics with arm movement. No increase in pain reported. Discussed 'movement snacks' throughout the day to avoid prolonged sedantary positions and increase strength to assist in decreasing pain.No adverse response noted to exercises today and pt reports slightlky better at end of session.' Electronically signed by: Deyanira Vaughan PT Please sign and return to therapist. Thank you for your referral.
== END 2022-01-27 08:30 | disposition home or self-care (01) ==
LOC: HO.PT 09:00
PROVIDERS: PCP Internal Medicine; Visit Provider Nurse Practitioner Family
DX: M54.50 Low back pain, unspecified (principal)
CPT/HCPCS: 97110; 97140; 97162; 97530

== ENCOUNTER 2022-01-26 13:09 | Outpatient (REF) | payer MEDICARE, MEDICAID, SELFPAY ==
--- NOTE | ~2022-01-26 | CT_ITS ---
EXAMINATION: CT CHEST WITHOUT CONTRAST CLINICAL INFORMATION: Other nonspecific abnormal finding of lung field. History of emphysema. COMPARISON: Previous chest x-ray most recent August [address] most recent January 2021 TECHNIQUE: Multidetector volumetric CT imaging of the chest was done. Axial MIP volume rendering provided. Sagittal and coronal reformatted images were obtained. This CT examination was performed using dose optimization techniques as appropriate, variously including the following: *Automated exposure control *Adjustment of mA and/or kV according to patient size (this includes techniques or standardized protocols for targeted exams where dose is matched to indication/reason for exam; i.e. extremities or head) *Use of iterative reconstruction technique DLP: 124 mGy-cm FINDINGS: LUNGS: There is severe emphysema. There are bullous changes in both upper lobes. There are postsurgical changes at the right lung apex with medial surgical staple line. There is stable biapical pleural thickening and calcification. No pulmonary nodule is seen. No endobronchial or endotracheal lesion. MEDIASTINUM: Normal heart size. No coronary artery calcification. Small pericardial. Normal caliber thoracic aorta. Mild aortic calcification. No enlarged hilar or mediastinal lymph nodes. CORONARY ARTERY CALCIFICATION: None visualized on this study. PLEURA: There is no pleural effusion. No pleural mass or thickening. AXILLA: Bilateral breast implants. No chest wall mass or enlarged axillary lymph nodes. UPPER ABDOMEN: Unremarkable. OSSEOUS STRUCTURES: Unremarkable. CT/CT chest wo IV con IMPRESSION: Severe emphysema with bullous changes both upper lobes. Stable biapical pleural parenchymal scarring and calcification. No pulmonary nodule seen. Fleischner guidelines were followed.
[2022-01-26 14:04] LABS: MANUAL DIFF FLAG NO
[2022-01-26 14:49] LABS: Basophils Absolute Auto 0.1 X10*3/uL (0.0-0.2); Eosinophils Absolute Auto 0.1 X10*3/uL (0.0-0.4); Hematocrit 36.5 % (37.0-47.0); Hemoglobin 12.4 g/dl (12.0-16.0); Imm Gran Abs Auto 0.02 X10*3/uL (0.00-0.03); Imm Gran Pct Auto 0.3 % (0.0-0.4); Lymphocytes Absolute Auto 2.2 X10*3/uL (1.2-4.9); Lymphocytes Percent Auto 30.9 % (20-40); Mean Corpuscular Hemoglobin 33.5 pg (27.0-33.0); Mean Corpuscular Volume 98.6 fL (80.0-98.0); Mean Platelet Volume 8.7 fL (9.4-12.3); Monocytes Absolute Auto 0.6 X10*3/uL (0.1-1.2); Monocytes Percent Auto 9.1 % (2-11); Neutrophils Absolute Auto 4.1 x10*3/uL (2.0-8.3); Neutrophils Percent Auto 57.7 % (45-73); Platelet Count 359 X10*3/uL (160-400); Red Cell Distribution Width 13.4 % (11.0-16.0)
[2022-01-26 15:31] LABS: Erythrocyte Sedimentation Rate 21 MM/HR (0-20)
[2022-01-26 16:20] LABS: Alanine Aminotransferase 17 U/L (0-31); Albumin Level 4.6 g/dL (3.5-5.0); Alkaline Phosphatase 94 U/L (39-117); Anion Gap 17 (12-20); Aspartate Amino Transferase 23 U/L (5-31); Bilirubin Direct < 0.2 mg/dL (0.0-0.5); Bilirubin Total 0.2 mg/dL (0.0-1.0); Blood Urea Nitrogen 7 mg/dL (9-16); Carbon Dioxide 27 mmol/L (22-29); Chloride 93 mmol/L (96-108); Estimated Glomerular Filt Rate 59; Glucose Random 90 mg/dL (60-115); Phosphorus 4.1 mg/dL (2.7-4.5); Potassium 4.9 mmol/L (3.3-5.1); Sodium 132 mmol/L (135-145); Total Protein 6.8 g/dL (6.5-8.0)
[2022-01-26 16:45] LABS: Appearance Urine Clear; Color Urine Yellow; Glucose Urine UA Negative (Negative); Leukocyte Esterase Urine Trace (Negative); Nitrite Urine Negative (Negative); PH 6.5 (5.0-9.0); Specific Gravity - Urine <= 1.005 (1.005-1.025); UMIC TRIGGER UA YES; Urine Blood Negative (Negative); Urine Ketones Negative (Negative); Urine Protein Negative (Neg-Trace)
[2022-01-26 16:48] LABS: Bacteria Urine None Seen (None Seen); Hyaline Casts Urine 0-2 /LPF (0-2); RBC Urine 0-2 /HPF (0-2); Squamous Epithelial Cell Urine 0-2 /HPF (0-2); WBC Urine 0-5 /HPF (0-5)
== END 2022-01-26 13:10 | disposition home or self-care (01) ==
LOC: HO.CT 13:09
PROVIDERS: Internal Medicine; Visit Provider Hospitalist
DX: R91.8 Other nonspecific abnormal finding of lung field (principal); G25.81 Restless legs syndrome; R53.83 Other fatigue
CPT/HCPCS: 36415; 71250; 80053; 81001; 82248; 83735; 84100; 84443; 85025; 85652

== ENCOUNTER → 2022-02-11 10:12 | Outpatient (BNVA) | payer MEDICARE, MEDICAID, SELFPAY | PROVIDERS: PCP Internal Medicine; Visit Provider Hospitalist | DX: G47.33 Obstructive sleep apnea (adult) (pediatric) (principal); M19.90 Unspecified osteoarthritis, unspecified site; J43.2 Centrilobular emphysema; R09.1 Pleurisy; R91.8 Other nonspecific abnormal finding of lung field; B94.8 Sequelae of other specified infectious and parasitic diseases; Z99.89 Dependence on other enabling machines and devices | CPT/HCPCS: 99212 ==

== ENCOUNTER → 2022-02-16 13:24 | Outpatient (BNVA) | payer MEDICARE, MEDICAID, SELFPAY | PROVIDERS: PCP Internal Medicine; Referring Provider Internal Medicine; Visit Provider Internal Medicine | DX: R00.2 Palpitations (principal); R06.02 Shortness of breath | CPT/HCPCS: 93005; 99202 ==

== ENCOUNTER → 2022-03-05 14:10 | Outpatient (REF) | payer MEDICARE, MEDICAID, SELFPAY ==
--- NOTE | 2022-03-05 14:14 | CA_ITS ---
Transthoracic Echocardiogram Patient (Last, First, Middle): Zuleima Evans A Gender: Female Date of : 1965 Age: 57 Procedure Date: 03/05/2022 Procedure Type: Transthoracic Echocardiogram Location: OP Height: 170.18 cm Weight: 65.32 kg BSA: 1.76 m2 Heart Rate: bpm BP: 124 / 76 mmHg Trend Investigator: AKILAH Referring MD: Benito Holcomb MD Symptoms: R06.02 - Shortness of breath Study Quality: Adequate ECG Rhythm: Sinus Conclusions: - The left ventricular systolic function is normal. The calculated ejection fraction is 63% by biplane method. - No obvious valvular pathology seen on this study. Findings Left Ventricle Normal left ventricular cavity size. There is normal left ventricular wall thickness. The left ventricular systolic function is normal. The calculated ejection fraction is 63% by biplane method. There is no evidence of regional wall motion abnormalities. Diastolic function is normal for age. LV peak GLS -18.9%. Right Ventricle Normal right ventricular cavity size and systolic function. Atria Both atria are normal in size. Aortic Valve There is a normal trileaflet aortic valve. There is no aortic valve stenosis. There is no aortic valve regurgitation. Mitral Valve The mitral valve appears normal. There is trace mitral valve regurgitation. There is no mitral valve stenosis. Pulmonic Valve The pulmonic valve is likely normal. Tricuspid Valve Normal tricuspid valve structure. There is no tricuspid valve regurgitation. Tricuspid regurgitation envelope is inadequate for calculation of right ventricular systolic pressure. Great Vessels The aortic annulus, sinuses of valsalva, asc aorta, and aortic arch are normal in size. Venous The inferior vena cava is normal in size and collapses greater than 50% with inspiration. Pericardium/Pleural There is a trivial pericardial effusion. Prior Study Comparison No prior study available for comparison. Recommendations, Care & Conclusions No obvious valvular pathology seen on this study. Measurements 2D Linear Measurements IVSd: 0.87 0.6-0.9/0.6-1.0 cm LVIDd: 4.14 3.9-5.3/4.2-5.9 cm LVIDd Index: 2.35 2.4-3.2/2.2-3.1 cm/m2 LVIDs: 2.62 2.0-3.6 cm LVPWd: 0.97 0.7-1.1 cm LA Diam: 3.40 2.7-3.8/3.0-4.0 cm LAIDs Index: 1.93 1.5-2.3 cm/m2 LV Mass: 148.60 67-162/88-224 g LV Mass Index: 84.43 43-95/49-115 g/m2 LVOT Diam: 1.90 3.0+(-)1.3 cm 2D Systolic Function EF 4C: 62.90 >55% EF 2C: 61.90 >55% EF BiP: 63.20 >55% Mitral Valve MV Pk E: 0.70 MV PK A: 0.73 MV Decel Time: 197.00 E/A: 1.00 E'Lateral: 8.16 E'Medial: 5.66 E/E' Med: 12.30 E/E' Lat: 8.50 PHT: 58.00 MVA PHT: 3.79 Decel [place]: 3.53 Aortic Valve AoV Pk Ernst: 1.44 AoV Mn Ernst: 0.93 AoV VTI: 0.30 AoV Pk Grad: 8.00 Aov Mn Grad: 4.00 ANDRE Cont.VTI: 2.23 LVOT LVOT Pk Ernst: 1.25 LVOT Mn Ernst: 0.88 LVOT VTI: 0.23 LVOT Pk Grad: 6.00 LVOT Mn Grad: 4.00 LVOT Diam: 1.90 LVOT Area: 2.84 Diastolic Function MV Pk E: 0.70 MV Pk A: 0.73 E/A: 1.00 E'Medial: 5.66 E/E' Med: 12.30 E' Laterial: 8.16 E/E' Lat: 8.50 Right Ventricle TAPSE (mm): 20.70 TVS' Ernst: 12.40 Tricuspid Valve RA Press: 3.00 Great Vessels Aorta Sinus of Valsalva: 3.34 2.0-3.[address] [place]: 2.55 1.7-3.4 cm Ao Asc: 3.00 2.1-3.4 cm Ao Arch: 2.80 Updated in Other Vendor System with Status of Final Benito Holcomb MD electronically signed on 03/06/2022 2:06:59 PM with status of Final
--- NOTE | 2022-03-05 14:14 | HM_ITS ---
Conclusion: 1. Patient was monitored for total period of 3 days 2. Baseline was normal sinus rhythm with average heart of 87 beats per minute 3. No significant pauses or bradycardia noted 4. Rare ectopy noted 5. Patient reported events correlated with sinus rhythm MTDD
== END ==
LOC: HO.CARD 14:10
PROVIDERS: Visit Provider Internal Medicine
DX: R00.2 Palpitations (principal); R06.02 Shortness of breath; M47.9 Spondylosis, unspecified
CPT/HCPCS: 93242; 93306; 93356; 99202

== ENCOUNTER → 2022-03-12 09:29 | Outpatient (BNVA) | payer MEDICARE, MEDICAID, SELFPAY | PROVIDERS: PCP Internal Medicine; Visit Provider Hospitalist | DX: G47.33 Obstructive sleep apnea (adult) (pediatric) (principal); J43.2 Centrilobular emphysema; R09.1 Pleurisy; M19.90 Unspecified osteoarthritis, unspecified site; R91.8 Other nonspecific abnormal finding of lung field; B94.8 Sequelae of other specified infectious and parasitic diseases; Z99.89 Dependence on other enabling machines and devices | CPT/HCPCS: 99212 ==

== ENCOUNTER → 2022-04-16 13:00 | Outpatient (BNVA) | payer MEDICARE, MEDICAID, SELFPAY | PROVIDERS: PCP Internal Medicine; Visit Provider Nurse Practitioner Family | DX: M25.552 Pain in left hip (principal); M54.16 Radiculopathy, lumbar region; M47.816 Spondylosis without myelopathy or radiculopathy, lumbar region; G89.4 Chronic pain syndrome | CPT/HCPCS: 99212 ==

== ENCOUNTER 2022-04-27 10:17 | Outpatient (REF) | payer MEDICARE, MEDICAID, SELFPAY | END 2022-04-27 10:18 | disposition home or self-care (01) | LOC: HO.MRI 10:17 | PROVIDERS: Visit Provider Nurse Practitioner Family | DX: M54.16 Radiculopathy, lumbar region (principal); M47.816 Spondylosis without myelopathy or radiculopathy, lumbar region; G89.4 Chronic pain syndrome | CPT/HCPCS: 72148 ==

== ENCOUNTER → 2022-05-15 12:54 | Outpatient (BNVA) | payer MEDICARE, MEDICAID, SELFPAY | PROVIDERS: PCP Internal Medicine; Visit Provider Hospitalist | DX: J43.2 Centrilobular emphysema (principal); U09.9 Post COVID-19 condition, unspecified; R09.1 Pleurisy; R91.8 Other nonspecific abnormal finding of lung field; G47.33 Obstructive sleep apnea (adult) (pediatric); M19.90 Unspecified osteoarthritis, unspecified site; Z79.899 Other long term (current) drug therapy; Z99.89 Dependence on other enabling machines and devices | CPT/HCPCS: 99212 ==

== ENCOUNTER → 2022-05-25 15:57 | Outpatient (BNVA) | payer MEDICARE, MEDICAID, SELFPAY | PROVIDERS: PCP Internal Medicine; Visit Provider Nurse Practitioner Family | DX: M47.816 Spondylosis without myelopathy or radiculopathy, lumbar region (principal); M54.16 Radiculopathy, lumbar region; M25.552 Pain in left hip; G89.4 Chronic pain syndrome | CPT/HCPCS: Q3014 ==

== ENCOUNTER → 2022-06-11 13:10 | Outpatient (BNVA) | payer MEDICARE, MEDICAID, SELFPAY | PROVIDERS: PCP Internal Medicine; Referring Provider Internal Medicine; Visit Provider Nurse Practitioner Family | DX: R00.2 Palpitations (principal) | CPT/HCPCS: 99212 ==

== ENCOUNTER 2022-06-17 02:19 | Emergency (ER) | payer MEDICARE, MEDICAID, SELFPAY ==
--- NOTE | ~2022-06-17 | XR_ITS ---
EXAMINATION: XR CHEST CLINICAL INFORMATION: Cough COMPARISON: 08/18/2021 TECHNIQUE: Frontal view of the chest was obtained. FINDINGS: Cardiac leads overlie the chest. The lungs are well expanded. There is no focal consolidation, edema, or effusion. No pneumothorax. The cardiomediastinal silhouette is within normal limits. No acute osseous abnormality. XR/XR chest 1V IMPRESSION: Clear lungs.
[2022-06-17 02:25] VITALS: BP 146/102; PULSE 118; RESP 20; TEMP 36.7; O2SAT 98; BMI 21.9
[2022-06-17 03:12] LABS: Influenza A PCR NEGATIVE (Negative); Influenza B PCR NEGATIVE (Negative); Resp Syncy Virus RNA Qual PCR NEGATIVE (Negative); SARS COV2 PCR INHOUSE NEGATIVE (Negative)
[2022-06-17 03:37] VITALS: BP 147/94; PULSE 96; RESP 16; TEMP 36.7
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
[2022-06-17] MEDS: Doxycycline Monohydrate 100 MG CAPSULE PO (04:15)
[2022-06-17] MEDS: Ondansetron ODT 4 MG TAB.RAPDIS TRANSLINGU (04:15)
[2022-06-17] MEDS: Fluconazole 150 MG TABLET PO (04:15)
[2022-06-17] MEDS: guaiFEN/Codeine SF 200/20/10ML 10 ML LIQUID PO (04:15)
[2022-06-17] MEDS: SUMAtriptan succinate 6 MG/0.5 ML VIAL SUBCUT (04:15)
[2022-06-17] MEDS: Butalb/Acetamin/Caff 50/325/40 TABLET 1 TAB PO (05:12)
== END 2022-06-17 05:24 | disposition home or self-care (01) ==
PROVIDERS: Emergency Provider Internal Medicine; PCP Internal Medicine
DX: J20.9 Acute bronchitis, unspecified (principal); F17.210 Nicotine dependence, cigarettes, uncomplicated; Z20.822 Contact with and (suspected) exposure to COVID-19; Z20.828 Contact with and (suspected) exposure to other viral communicable diseases; I10 Essential (primary) hypertension; E78.5 Hyperlipidemia, unspecified; J44.9 Chronic obstructive pulmonary disease, unspecified; Z79.899 Other long term (current) drug therapy; Z99.81 Dependence on supplemental oxygen; Z71.6 Tobacco abuse counseling
CPT/HCPCS: 0241U; 71045; 96372; 99283; 99284; J3030

== ENCOUNTER 2022-07-22 13:08 | Outpatient (REF) | payer MEDICARE, MEDICAID, SELFPAY ==
--- NOTE | ~2022-07-22 | MM_ITS ---
EXAMINATION: MM SCREENING DIGITAL BREAST TOMOSYNTHESIS, BILATERAL CLINICAL INFORMATION: Screening. Asymptomatic. The lifetime risk of breast cancer based on the Tyrer-Cuzick Model is 7%. COMPARISON: Mammography: 12/19/2021, 06/13/2021; outside mammography 04/01/2020, 03/25/2020, 02/14/2020, 10/18/2017 ([place]). TECHNIQUE: Digital mammography is performed in craniocaudal and mediolateral oblique views along with computer-aided detection (CAD). Digital breast tomosynthesis is performed in implant-displaced craniocaudal and implant-displaced mediolateral oblique views along with computer-aided detection (CAD). Synthesized 2D images are generated from the tomosynthesis. FINDINGS: There are scattered areas of fibroglandular density (ACR BI-RADS breast composition Category b). There are bilateral implants with contours similar to prior studies. Parenchymal pattern is similar to prior exams. No developing density or interval mass or architectural abnormality or abnormal calcifications. There is a biopsy clip marker mid upper outer right breast. The axilla and skin contours are unremarkable. No significant changes. MM/MM tomosynthesis screen imp BI IMPRESSION: No mammographic evidence of malignancy. ASSESSMENT: BI-RADS 1: Negative RECOMMENDATION: Routine annual mammography screening. This patient's information was entered into a reminder system with a target due date for their next mammogram.
== END 2022-07-22 13:09 | disposition home or self-care (01) ==
LOC: HO.MAMMO 13:08
PROVIDERS: PCP Internal Medicine; Visit Provider Internal Medicine
DX: Z12.31 Encounter for screening mammogram for malignant neoplasm of breast (principal)
CPT/HCPCS: 77063; 77067

== ENCOUNTER 2022-07-28 06:04 | Outpatient (REF) | payer MEDICARE, MEDICAID, SELFPAY ==
--- NOTE | ~2022-07-28 | FL_ITS ---
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 COMPARISON: None available. TECHNIQUE: Fluoroscopy Supervised By: Ritu Mohr Fluoroscopy Time: 0.6 minutes. Cumulative Dose: 14 mGy-cn DAP: 4 Gy-cm2. Images: 6. FINDINGS: Images demonstrate needle placement adjacent to the bilateral lateral L3, L4 and L5 vertebral bodies and contrast injection. FL/FL guidance in treatment room IMPRESSION: Fluoroscopy guidance for pain management procedure.
== END 2022-07-28 06:05 | disposition home or self-care (01) ==
LOC: CF 06:04
PROVIDERS: Visit Provider Anesthesiology
DX: M47.816 Spondylosis without myelopathy or radiculopathy, lumbar region (principal); M54.16 Radiculopathy, lumbar region; M25.552 Pain in left hip; G89.4 Chronic pain syndrome
CPT/HCPCS: 64493; 64494

== ENCOUNTER → 2022-08-03 13:23 | Outpatient (BNVA) | payer MEDICARE, MEDICAID, SELFPAY | PROVIDERS: PCP Internal Medicine; Visit Provider Nurse Practitioner Family | DX: M47.816 Spondylosis without myelopathy or radiculopathy, lumbar region (principal); M51.36 Other intervertebral disc degeneration, lumbar region; G89.4 Chronic pain syndrome | CPT/HCPCS: 99212 ==

== ENCOUNTER 2022-08-18 07:19 | Outpatient (REF) | payer MEDICARE, MEDICAID, SELFPAY ==
--- NOTE | ~2022-08-18 | XR_ITS ---
EXAMINATION: Bilateral foot series CLINICAL INFORMATION: Left fifth metatarsal. Right fifth metatarsal. Bruising and swelling. History of surgery. COMPARISON: None. TECHNIQUE: 3 views of each foot FINDINGS: Right foot: There are 2 screws extending dorsal to plantar over the distal fifth metatarsal compatible prior surgery no fracture line detected. PIP joint fifth toe: There appears to be subtle irregularity of the articular surface of the proximal phalanx at the PIP joint. Subchondral cystic change at the proximal portion of the middle phalanx. Question postsurgical change versus arthrosis Remaining bones joints and soft tissues unremarkable. Left foot: Left fifth toe: PIP joint fifth toe: Suspect postsurgical changes related to arthroplasty. Possible fusion across the DIP joint Bones joints and soft tissues otherwise unremarkable. XR/XR foot LT 2V IMPRESSION: RIGHT FOOT: Postsurgical changes. Possible postsurgical changes of the PIP joint fifth toe versus fracture versus degenerative change. Correlation with clinical presentation should help differentiate LEFT FOOT: 1. Suspect postsurgical changes PIP joint fifth toe. 2. No acute abnormality.
--- NOTE | ~2022-08-18 | XR_ITS ---
EXAMINATION: Bilateral foot series CLINICAL INFORMATION: Left fifth metatarsal. Right fifth metatarsal. Bruising and swelling. History of surgery. COMPARISON: None. TECHNIQUE: 3 views of each foot FINDINGS: Right foot: There are 2 screws extending dorsal to plantar over the distal fifth metatarsal compatible prior surgery no fracture line detected. PIP joint fifth toe: There appears to be subtle irregularity of the articular surface of the proximal phalanx at the PIP joint. Subchondral cystic change at the proximal portion of the middle phalanx. Question postsurgical change versus arthrosis Remaining bones joints and soft tissues unremarkable. Left foot: Left fifth toe: PIP joint fifth toe: Suspect postsurgical changes related to arthroplasty. Possible fusion across the DIP joint Bones joints and soft tissues otherwise unremarkable. XR/XR foot RT 2V IMPRESSION: RIGHT FOOT: Postsurgical changes. Possible postsurgical changes of the PIP joint fifth toe versus fracture versus degenerative change. Correlation with clinical presentation should help differentiate LEFT FOOT: 1. Suspect postsurgical changes PIP joint fifth toe. 2. No acute abnormality.
[2022-08-18 07:59] LABS: MANUAL DIFF FLAG NO
[2022-08-18 08:18] LABS: Basophils Absolute Auto 0.1 X10*3/uL (0.0-0.2); Basophils Percent Auto 0.9 % (0-2); Eosinophils Absolute Auto 0.1 X10*3/uL (0.0-0.4); Eosinophils Percent Auto 1.2 % (0-4); Hematocrit 37.9 % (37.0-47.0); Hemoglobin 13.1 g/dl (12.0-16.0); Imm Gran Abs Auto 0.02 X10*3/uL (0.00-0.03); Imm Gran Pct Auto 0.3 % (0.0-0.4); Lymphocytes Absolute Auto 1.6 X10*3/uL (1.2-4.9); Lymphocytes Percent Auto 24.3 % (20-40); Mean Corpuscular HGB Conc 34.6 g/dl (31.0-35.0); Mean Corpuscular Hemoglobin 34.7 pg (27.0-33.0); Mean Corpuscular Volume 100.3 fL (80.0-98.0); Mean Platelet Volume 9.1 fL (9.4-12.3); Monocytes Absolute Auto 0.5 X10*3/uL (0.1-1.2); Monocytes Percent Auto 7.7 % (2-11); Neutrophils Absolute Auto 4.4 x10*3/uL (2.0-8.3); Neutrophils Percent Auto 65.6 % (45-73); Platelet Count 325 X10*3/uL (160-400); Red Blood Count 3.78 X10*6/uL (4.20-5.50); Red Cell Distribution Width 14.2 % (11.0-16.0); White Blood Count 6.6 X10*3/uL (4.8-10.8)
[2022-08-18 08:56] LABS: Alanine Aminotransferase 10 U/L (0-31); Albumin Level 4.2 g/dL (3.5-5.0); Alkaline Phosphatase 84 U/L (39-117); Anion Gap 14 (12-20); Aspartate Amino Transferase 16 U/L (5-31); Bilirubin Total 0.4 mg/dL (0.0-1.0); Blood Urea Nitrogen 6 mg/dL (9-16); Calcium 9.7 mg/dL (8.4-10.2); Carbon Dioxide 26 mmol/L (22-29); Chloride 106 mmol/L (96-108); Cholesterol 206 mg/dL; Estimated Glomerular Filt Rate 59; Glucose Fasting 98 mg/dL (60-99); HDL Cholesterol 55 mg/dL; LDL Cholesterol Calculated 139 mg/dl; Potassium 4.6 mmol/L (3.3-5.1); Sodium 141 mmol/L (135-145); Total Protein 6.3 g/dL (6.5-8.0); Triglycerides 64 mg/dL
[2022-08-18 09:32] LABS: Folate 16.8 ng/mL (> or = 4.0); Free T4 (Free Thyroxine) 1.01 ng/dL (0.71-1.85); Thyroid Stimulating Hormone 0.45 uIU/mL (0.32-4.0); Vitamin B12 750 pg/mL (200-900); Vitamin D 25-OH Total 103.6 ng/mL (>30)
== END 2022-08-18 07:20 | disposition home or self-care (01) ==
LOC: HO.LAB 07:19
PROVIDERS: Nurse Practitioner Family; PCP Internal Medicine; Visit Provider Internal Medicine
DX: M79.674 Pain in right toe(s) (principal); M79.675 Pain in left toe(s); E78.5 Hyperlipidemia, unspecified; K21.9 Gastro-esophageal reflux disease without esophagitis; E55.9 Vitamin D deficiency, unspecified
CPT/HCPCS: 36415; 73620; 80053; 80061; 82306; 82607; 82746; 84439; 84443; 85025

== ENCOUNTER 2022-09-10 12:55 | Outpatient (REF) | payer MEDICARE, MEDICAID, SELFPAY ==
[2022-09-10 14:39] LABS: Influenza A PCR NEGATIVE (Negative); Influenza B PCR NEGATIVE (Negative); Resp Syncy Virus RNA Qual PCR NEGATIVE (Negative); SARS COV2 PCR INHOUSE NEGATIVE (Negative)
== END 2022-09-10 12:56 | disposition home or self-care (01) ==
LOC: HO.LNP 12:55
PROVIDERS: PCP Internal Medicine; Visit Provider Hospitalist
DX: Z20.822 Contact with and (suspected) exposure to COVID-19 (principal); J02.9 Acute pharyngitis, unspecified; M19.90 Unspecified osteoarthritis, unspecified site; R91.8 Other nonspecific abnormal finding of lung field
CPT/HCPCS: 0241U; 99212

== ENCOUNTER 2022-09-22 06:08 | Outpatient (REF) | payer MEDICARE, MEDICAID, SELFPAY ==
--- NOTE | ~2022-09-22 | FL_ITS ---
EXAMINATION: XR FLUOROSCOPY WITH IMAGES CLINICAL INFORMATION: Chronic pain syndrome COMPARISON: None available. TECHNIQUE: Fluoroscopy Supervised By: Dr. Salguero. Fluoroscopy Time: 0.6 minutes. Cumulative Dose: 15.3 mGy. DAP: 4.18 Gycm2. Images: 6. FINDINGS: There are 6 digital images revealing needle positioned adjacent to bilateral L5, L4 pedicles with contrast opacifying the soft tissues. Visualized bones and the disc levels are unremarkable. FL/FL guidance in treatment room IMPRESSION: Fluoroscopy was provided to referring physician for pain management.
== END 2022-09-22 06:09 | disposition home or self-care (01) ==
LOC: CF 06:08
PROVIDERS: Visit Provider Anesthesiology
DX: M47.816 Spondylosis without myelopathy or radiculopathy, lumbar region (principal); G89.4 Chronic pain syndrome; M51.36 Other intervertebral disc degeneration, lumbar region
CPT/HCPCS: 64493; 64494

== ENCOUNTER 2022-09-23 08:48 | Outpatient (REF) | payer MEDICARE, MEDICAID, SELFPAY ==
[2022-09-24 19:43] LABS: HPV mRNA E6/E7 rflx Not Detected (Not Detected)
== END 2022-09-23 08:49 | disposition home or self-care (01) ==
LOC: HO.LNP 08:48
PROVIDERS: PCP Internal Medicine; Visit Provider Obstetrics & Gynecology
DX: Z01.419 Encounter for gynecological examination (general) (routine) without abnormal findings (principal); Z11.51 Encounter for screening for human papillomavirus (HPV)
CPT/HCPCS: 87624; 88142

== ENCOUNTER → 2022-09-30 10:34 | Outpatient (BNVA) | payer MEDICARE, MEDICAID, SELFPAY | PROVIDERS: PCP Internal Medicine; Visit Provider Nurse Practitioner Family | DX: G89.4 Chronic pain syndrome (principal); M47.816 Spondylosis without myelopathy or radiculopathy, lumbar region; M51.36 Other intervertebral disc degeneration, lumbar region | CPT/HCPCS: Q3014 ==

== ENCOUNTER → 2022-10-08 11:19 | Day surgery (SDC) | payer MEDICARE, MEDICAID, SELFPAY ==
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
--- NOTE | ~2022-10-08 | FL_ITS ---
EXAMINATION: XR FLUOROSCOPY WITH IMAGES CLINICAL INFORMATION: Procedure OR 5. COMPARISON: None available. TECHNIQUE: Fluoroscopy Supervised By: Dr. Shaquille Salguero. Fluoroscopy Time: 1.0 minute. Cumulative Dose: 15 mGy. DAP: 0.262 Gycm2. Images: 4. FINDINGS: Images demonstrate probe placement adjacent to the bilateral lateral L3, L4 and L5 vertebrae FL/FL guidance in OR IMPRESSION: Fluoroscopy guidance for pain management procedure
[2022-10-08 05:58] VITALS: BMI 22.9
[2022-10-08 11:39] VITALS: BP 122/86; PULSE 88; RESP 17; TEMP 36.1; O2SAT 97
[2022-10-08] MEDS: Lactated Ringers 1,000 ML 50 ML IVCONT (12:04)
--- NOTE | 2022-10-08 12:09 | MHC.SHP ---
Pre-Procedural Eval Section A Date of Service: 10/08/22 The patient is an INPATIENT: No Changes since office visit: Yes Patient answered all questions The History & Physical has been completed within 30 days and I have reviewed it.: No Section B Chief Complaint: Spondylosis w/o myelopathy or radiculopathy,pain Details of Present Illness: as above Relevant Family History (Specify if Yes): No Relevant Social History: None Present Medications: None Medical History: No relevant PMH History of Previous Operations: No relevant previous surgery Allergies: Allergies Allergy/AdvReac Type Severity Reaction Status Date / Time prednisone [PREDNISONE] Allergy Severe AGITATION Verified 09/30/22 10:34 doxycycline Allergy Mild Vomiting Verified 09/30/22 10:34 steroids Allergy shakes Uncoded 09/30/22 10:34 Review of Systems Sugical H&P ROS: Negative: Constitution, Cardiovascular, Respiratory, Neurological, Psychiatric, Hem-Onc, Allergic/Immunologic, Gastrointestinal, Genitourinary, Musculoskeletal, Integumentary, Endocrine and Eyes/Ears/Nose/Throat Exam Surgical H&P Exam: Normal: HEENT, Normal: Heart, Normal: Lungs, Normal: Extremities, Normal: Abdomen, Normal: Skin and Normal: Neurological Plan Diagnosis/Plan: Unchanged I have reviewed the history and physical and performed a pertinent physical examination on my patient. No changes have occurred unless specified. Time Spent With Patient Time: Total time managing care of this patient today ____ minutes.
--- NOTE | 2022-10-08 13:09 | W.PM.OPN ---
Operative Note Operative Note Date of Service: 10/08/22 Narrative: RFA L3-L4-DRL5 bilateral Informed consent was explained to the patient. All questions were explained and answered. The patient was taken inside the operating room where he was positioned prone on the operating table. ASA m-rs were applied,? the patient was Deeply sedated on her own insistence. she was explained that having the procedure while awake would be safer however she insisted on procedure being done under sedation.She was? able to answer the questions and respond to the commands. Time-out was performed delineating name and of the patient,? correct site, side, the nature of the procedure, patient's allergy, preoperative antibiotic if needed. All operating room staff was participating in OR time-out procedure. The lower back was prepped with ChloraPrep and draped with sterile towels. C-arm was brought over the operating field and sq picture of L3,? L4, L5 vertebra and S1 AREA were delineated on the screen. Point of interest were delineated as connection of superior articular process of? L3, L4, L5 vertebra bilaterally with corresponding transverse processes as well as connection of the sacral alae bilaterally with superior articular process of S1 1st on the right and then on the left side. The lateral images were obtained and position of the tips of the needles away from the foramina and presumable location of the somatic nerves was verified. ?The projection of the point of interest to the skin were injected with the small amount of local anesthetic lidocaine 2% 1-1.5 cc. After that 18 gauge 100 mm RFA canulas? were driven to the point of interest in oblique fashion. After needles gently contacted the bone the motor tests were performed and no motor response was detected in the patients feet lower legs or thighs. After that? at the point of interests the cannulas? were injected with small amount of ropivacaine 0.5% mixed with lidocaine 1%-1cc?-2cc. 90 seconds after the injection the energy application was performed at 89 degrees Centigrade for 90 second. After first energy application the canullas were rotated 180 degrees and energy application was repeated at the same setting.? Upon completion of the energy applications canullas were removed and sterile bandaids? were applied, The? patient was taken outside of the operating room to recovery room . When she woke up she started to complain on numbness in her right foot and inability to hold the weight or walk with the right foot. She was carefully examined she was able to flex her foot forward and backwards she also were able to dorsiflex her great toe in separation from the rest of the toes. She was able to flex her hip with minimal difficulty. Minimal weakness was detected on dorsiflexion of the right foot. she is able to distinguish sharp and dull objects in the dorsal lateral and solar surfaces of the right foot. Therefore I do not believe the patient suffered from peripheral nerve damage, most likely she experiences complications from spillage of the local anesthetic over the superior border the transverse process. The patient stayed in PACU for the time allowable. After that she was discharged from PACU and was admitted to the ER. She spent few hours under observation in ER, gained enough of the strength on her lower extremity to be able to navigate inside of her household (she lives alone) and after that she was discharged from ER. She will be invited to visit the office [facility] next week for the follow up and evaluation.
--- NOTE | 2022-10-08 13:10 | P.BOP_ITS ---
Brief Operative Note Date of Service: 10/08/22 Pre-op diagnosis: spondylosis lumbar without myelo or radiculopathy. Post-op diagnosis: same Procedure: RFA L3-L4-L5 B/l Surgeon: Shaquille Salguero MD Anesthesia: MAC Was an Anesthesiology Resident used for this Procedure?: No Estimated blood loss (mL): 2 Condition: stable Disposition: other
[2022-10-08 13:12] VITALS: BP 121/78; PULSE 83; RESP 18; TEMP 36.5; O2SAT 97
[2022-10-08 13:26] VITALS: BP 151/58; PULSE 85; RESP 20; TEMP 36.5; O2SAT 95
--- NOTE | 2022-10-08 16:38 | PC.NURSE ---
0218 REPORT FROM MIRELLA, [employer], DR. CANDELARIA IS AWARE OF RESIDUAL WEAKNESS INABILITY TO STAND BEAR WEIGHT ON LEG AND HAS EVALUATED PATIENT POST PROCEDURE PLAN UPDATE MD AT 1700 PATIENT CONTINUES TO HAVE RESIDUAL RIGHT SIDED WEAKNESS TO LIFT RIGHT LEG OFF OF STRETCHER, UNABLE TO HOLD LEG STEADY WITH LIGHT RESISTANCE. PATIENT REPORTS RESIDUAL NUMBNESS TO RIGHT LEG WITH SLIGHT IMPROVEMENT IN SENSATION. ABLE LOCALIZE TOUCH TO KNEE, FUENTES, FOOT, PATIENT REPORTS WILL NOT HAVE ANYONE AT HOME UPON DISCHARGE
--- NOTE | 2022-10-08 17:04 | PC.NURSE ---
PATIENT ATTEMPT TO WALK WITH WALKER REMAINS RIGHT SIDED LEG WEAKNESS. I FEEL LIKE I CAN'T BEAR FULL WEIGHT ON THAT LEG . PATIENT RIGHT LEG LISTING TO RIGHT REQUIRING PHYSICAL CONTACT GUARD ASSIST TO WALK SAFELY.
--- NOTE | 2022-10-08 17:07 | PC.NURSE ---
MESSAGE CALL PLACED TO DR. CANDELARIA GOES TO [employer] MESSAGE LEFT
[2022-10-08 17:17] VITALS: BP 128/89; PULSE 82; RESP 20; TEMP 36.9; O2SAT 97
== END | disposition home or self-care (01) ==
PROVIDERS: PCP Internal Medicine; Visit Provider Anesthesiology
PROC: (CPT 64635; principal; 2022-10-08 12:20)
DX: M47.816 Spondylosis without myelopathy or radiculopathy, lumbar region (principal); G89.4 Chronic pain syndrome; R91.8 Other nonspecific abnormal finding of lung field; J44.9 Chronic obstructive pulmonary disease, unspecified; G47.33 Obstructive sleep apnea (adult) (pediatric); I34.1 Nonrheumatic mitral (valve) prolapse; R56.9 Unspecified convulsions; Z90.2 Acquired absence of lung [part of]; G43.909 Migraine, unspecified, not intractable, without status migrainosus; Z79.899 Other long term (current) drug therapy; Z99.81 Dependence on supplemental oxygen; F17.210 Nicotine dependence, cigarettes, uncomplicated; Z88.1 Allergy status to other antibiotic agents; Z88.8 Allergy status to other drugs, medicaments and biological substances
CPT/HCPCS: 64635; 64636 ×2; J2405; J2795; J3010

== ENCOUNTER 2022-10-08 17:32 | Emergency (ER) | payer MEDICARE, MEDICAID, SELFPAY ==
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
[2022-10-08 18:07] VITALS: BP 150/81; PULSE 97; RESP 18; TEMP 36.9; O2SAT 95; BMI 21.1
--- NOTE | 2022-10-08 18:13 | PC.NURSE ---
Alert and oriented, arrived form OR after radio frequency ablation of the l3, l4, l5.Difficulty raising right leg and bending knee. Lives along and unable to be safely discharged at this time. States 9/10 pain at incision site. 6 incisions on back, dry and covered. PERRLA. Denies chest pain or SOB at this time.
[2022-10-08] MEDS: Morphine Sulfate 4 MG/ML CARTRIDGE IVPUSH (18:22)
[2022-10-08] MEDS: ondansetron HCL 4 MG/2 ML VIAL IVPUSH (18:22)
[2022-10-08 20:17] VITALS: BP 144/85; PULSE 84; RESP 16; TEMP 36.7; O2SAT 99
--- NOTE | 2022-10-08 20:36 | MHC.EDTECH ---
Pt transfered for PACU this afternoon for numbness after surgery. Pt states she needed to use the restroom but was unable to stand, I asked the nurse for a purewick and she agreed. Pt also transfered to hospital bed for comfort. 1200 cc out put of clear yellow urine.
--- NOTE | 2022-10-08 20:57 | PC.NURSE ---
Pt with moderate difficulty ambulating with walkerMD Solorio aware. Will keep pt overnight for phys observation and reevaluate in the morning.
--- NOTE | 2022-10-08 23:07 | MHC.EDTECH ---
At approxiamately 20:10 pt rang to use bedside commode , due to patients back surgery today and that she was sent to ED from Pacu it was decidec to use purewick. patient was able to turn with minimal discomfort. Patient also requested a gingerale at this time. This news writer spent 10 minutes talking with patient trying to reassure her that she will be ok. Patient had 1200 CC of clear yellow urine in vacutainer
[2022-10-08 23:20] VITALS: BP 144/85; PULSE 76; RESP 14; TEMP 36.7; O2SAT 95
[2022-10-08] MEDS: Ketorolac Tromethamine 30 MG/ML VIAL IVPUSH (23:22)
[2022-10-08] MEDS: oxyCODONE HCl Immed Release 5 MG TABLET 10 MG PO (23:41)
== END 2022-10-09 00:22 | disposition home or self-care (01) ==
PROVIDERS: Emergency Provider Internal Medicine; PCP Internal Medicine
DX: M54.50 Low back pain, unspecified (principal); R20.0 Anesthesia of skin; F17.210 Nicotine dependence, cigarettes, uncomplicated; Z79.899 Other long term (current) drug therapy
CPT/HCPCS: 96374; 96375; 99284; J1885; J2270; J2405

== ENCOUNTER → 2022-10-14 08:08 | Outpatient (BNVA) | payer MEDICARE, MEDICAID, SELFPAY | PROVIDERS: PCP Internal Medicine; Visit Provider Anesthesiology | DX: M47.816 Spondylosis without myelopathy or radiculopathy, lumbar region (principal); M51.36 Other intervertebral disc degeneration, lumbar region; G89.4 Chronic pain syndrome | CPT/HCPCS: 99212 ==

== ENCOUNTER 2023-01-19 09:03 | Outpatient (AMB) | payer MEDICARE, MEDICAID, SELFPAY ==
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
[2023-01-19 09:07] VITALS: BP 110/70; PULSE 76; O2SAT 98; BMI 21.9
== END 2023-01-19 09:32 | disposition home or self-care (01) ==
PROVIDERS: PCP Internal Medicine; Visit Provider Hospitalist
DX: R91.8 Other nonspecific abnormal finding of lung field (principal); G47.33 Obstructive sleep apnea (adult) (pediatric); Z99.89 Dependence on other enabling machines and devices; J43.2 Centrilobular emphysema; B94.8 Sequelae of other specified infectious and parasitic diseases; J43.8 Other emphysema
CPT/HCPCS: 99214

== ENCOUNTER → 2023-01-19 09:03 | Outpatient (BNVA) | payer MEDICARE, MEDICAID, SELFPAY | PROVIDERS: Visit Provider Hospitalist | DX: R91.8 Other nonspecific abnormal finding of lung field (principal); J43.2 Centrilobular emphysema; J43.8 Other emphysema; B94.8 Sequelae of other specified infectious and parasitic diseases; G47.33 Obstructive sleep apnea (adult) (pediatric); Z99.89 Dependence on other enabling machines and devices | CPT/HCPCS: 99212 ==

== ENCOUNTER 2023-01-25 14:12 | Outpatient (AMB) | payer MEDICARE, MEDICAID, SELFPAY ==
[2023-01-25 14:13] VITALS: BP 90/68; PULSE 79; O2SAT 94; BMI 22.2
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
== END 2023-01-25 14:46 | disposition home or self-care (01) ==
PROVIDERS: PCP Internal Medicine; Visit Provider Internal Medicine
DX: K21.9 Gastro-esophageal reflux disease without esophagitis (principal); J44.9 Chronic obstructive pulmonary disease, unspecified; M51.36 Other intervertebral disc degeneration, lumbar region; F41.1 Generalized anxiety disorder; E78.5 Hyperlipidemia, unspecified; G47.33 Obstructive sleep apnea (adult) (pediatric); Z99.89 Dependence on other enabling machines and devices; G62.9 Polyneuropathy, unspecified; M72.2 Plantar fascial fibromatosis; D22.9 Melanocytic nevi, unspecified
CPT/HCPCS: 99214

== ENCOUNTER 2023-02-17 19:27 | Inpatient (IN) | payer MEDICARE, MEDICAID, SELFPAY ==
--- NOTE | ~2023-02-17 | XR_ITS ---
EXAMINATION: XR CHEST CLINICAL INFORMATION: Chest pain. Hypoxia. COMPARISON: 06/17/2022. TECHNIQUE: Frontal view of the chest was obtained. FINDINGS: The cardiomediastinal silhouette is stable. The lung cabrera are hyperinflated. There is no focal lung consolidation or pleural effusion. The bony structures and soft tissues are unremarkable. XR/XR chest 1V IMPRESSION: COPD. No evidence for active cardiopulmonary disease.
[2023-02-17 19:32] VITALS: BP 157/90; PULSE 116; RESP 22; TEMP 36.8; O2SAT 85; BMI 21.6
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
--- NOTE | 2023-02-17 19:35 | ECG_ITS ---
Test Reason : DYSPNEA Blood Pressure : / mmHG Vent. Rate : 094 BPM Atrial Rate : 094 BPM P-R Int : 144 ms QRS Dur : 088 ms QT Int : 392 ms P-R-T Axes : 078 080 079 degrees QTc Int : 490 ms Normal sinus rhythm Normal ECG No significant changes seen Referred By: Myrna Singh Electronically Signed By:KRYSTAL GIBSON MD
--- NOTE | 2023-02-17 19:49 | MHC.EDTECH ---
Patient changed over and vape pen given to security
[2023-02-17] MEDS: Magnesium Sulfate/H2O 2 GM/50 ML PIGGYBACK IV (19:52)
[2023-02-17] MEDS: Albuterol Sulfate 5 MG, Albuterol Sulfate (0.083%) 2.5 MG 7.5 MG INHALE ×2 (19:53→21:24)
[2023-02-17 19:54] VITALS: PULSE 108; O2SAT 97
[2023-02-17 19:54] LABS: MANUAL DIFF FLAG NO
[2023-02-17 19:55] VITALS: BP 126/93; PULSE 103; RESP 22; O2SAT 97
[2023-02-17 19:56] LABS: Basophils Absolute Auto 0.1 X10*3/uL (0.0-0.2); Basophils Percent Auto 0.6 % (0-2); Eosinophils Absolute Auto 0.1 X10*3/uL (0.0-0.4); Eosinophils Percent Auto 1.1 % (0-4); Hematocrit 39.6 % (37.0-47.0); Hemoglobin 13.6 g/dl (12.0-16.0); Imm Gran Abs Auto 0.02 X10*3/uL (0.00-0.03); Imm Gran Pct Auto 0.2 % (0.0-0.4); Lymphocytes Absolute Auto 2.1 X10*3/uL (1.2-4.9); Lymphocytes Percent Auto 24.2 % (20-40); Mean Corpuscular HGB Conc 34.3 g/dl (31.0-35.0); Mean Corpuscular Hemoglobin 33.9 pg (27.0-33.0); Mean Corpuscular Volume 98.8 fL (80.0-98.0); Mean Platelet Volume 9.2 fL (9.4-12.3); Monocytes Percent Auto 12.1 % (2-11); Neutrophils Absolute Auto 5.3 x10*3/uL (2.0-8.3); Neutrophils Percent Auto 61.8 % (45-73); Platelet Count 304 X10*3/uL (160-400); Red Blood Count 4.01 X10*6/uL (4.20-5.50); Red Cell Distribution Width 13.8 % (11.0-16.0); White Blood Count 8.5 X10*3/uL (4.8-10.8)
[2023-02-17 20:06] LABS: VBG HCO3 25 mmol/L (22-26); VBG pCO2 41 mmHg; VBG pH 7.39 (7.32-7.43); VBG pO2 72 mmHg
[2023-02-17 20:17] LABS: Venous Blood Gas Refer to POC result
[2023-02-17 20:18] LABS: Alanine Aminotransferase 10 U/L (0-31); Albumin Level 4.6 g/dL (3.5-5.0); Alkaline Phosphatase 85 U/L (39-117); Anion Gap 16 (12-20); Aspartate Amino Transferase 18 U/L (5-31); Bilirubin Direct < 0.2 mg/dL (0.0-0.5); Bilirubin Total 0.2 mg/dL (0.0-1.0); Blood Urea Nitrogen 9 mg/dL (9-16); Calcium 10.3 mg/dL (8.4-10.2); Carbon Dioxide 24 mmol/L (22-29); Chloride 105 mmol/L (96-108); Creatinine Clr Calc Pharmacy 50.4; Estimated Glomerular Filt Rate 46; Glucose Random 116 mg/dL (60-115); Magnesium 2.1 mg/dL (1.6-2.6); Potassium 4.2 mmol/L (3.3-5.1); Sodium 141 mmol/L (135-145); Total Protein 7.2 g/dL (6.5-8.0)
[2023-02-17 20:36] LABS: Influenza A PCR NEGATIVE (Negative); Influenza B PCR NEGATIVE (Negative); Resp Syncy Virus RNA Qual PCR NEGATIVE (Negative); SARS COV2 PCR INHOUSE NEGATIVE (Negative)
[2023-02-17 20:46] LABS: Troponin-I High Sensitivity < 2.7 ng/L (<3.5-17.0)
[2023-02-17] MEDS: Acetaminophen 325 MG TABLET 975 MG PO (21:09)
--- NOTE | 2023-02-17 21:10 | PC.NURSE ---
pt resting comfortably, alert and oriented, pt requesting to go home at this time. MD Farrell requested pt be given another respiratory treatment, and be taken off O2, 94% on 3L NC. pt now at 92% RA. pt requested medication for 02/09 headache, pt medicated per JUL.
[2023-02-17 21:17] VITALS: PULSE 103; RESP 22; O2SAT 85
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
[2023-02-17 22:24] VITALS: BP 113/74; PULSE 106; RESP 19; O2SAT 90
[2023-02-17] MEDS: Enoxaparin Sodium 40 MG/0.4 ML SYRINGE SUBCUT (23:12)
[2023-02-17] MEDS: Azithromycin 500 MG in 0.9 % Sodium Chloride 250 ML 125 MG IV (23:12)
[2023-02-17] MEDS: SUMAtriptan succinate 50 MG TABLET PO (23:37)
[2023-02-17 23:45] LABS: Procalcitonin 0.02 ng/mL
--- NOTE | 2023-02-17 23:48 | PC.NURSE ---
pt c/o migraine headache, pt medicated per MA. now resting with eyes closed, breathing even and unlabored
[2023-02-18 03:53] VITALS: BP 91/60; PULSE 81; RESP 24; TEMP 35.7; O2SAT 93
[2023-02-18 05:16] LABS: MANUAL DIFF FLAG NO
[2023-02-18 05:17] LABS: Basophils Absolute Auto 0.1 X10*3/uL (0.0-0.2); Basophils Percent Auto 0.7 % (0-2); Eosinophils Absolute Auto 0.1 X10*3/uL (0.0-0.4); Eosinophils Percent Auto 1.2 % (0-4); Hematocrit 35.1 % (37.0-47.0); Hemoglobin 12.3 g/dl (12.0-16.0); Imm Gran Abs Auto 0.02 X10*3/uL (0.00-0.03); Imm Gran Pct Auto 0.3 % (0.0-0.4); Lymphocytes Absolute Auto 1.6 X10*3/uL (1.2-4.9); Lymphocytes Percent Auto 23.5 % (20-40); Mean Corpuscular Hemoglobin 34.6 pg (27.0-33.0); Mean Corpuscular Volume 98.9 fL (80.0-98.0); Mean Platelet Volume 9.4 fL (9.4-12.3); Monocytes Absolute Auto 0.7 X10*3/uL (0.1-1.2); Monocytes Percent Auto 10.1 % (2-11); Neutrophils Absolute Auto 4.3 x10*3/uL (2.0-8.3); Neutrophils Percent Auto 64.2 % (45-73); Platelet Count 264 X10*3/uL (160-400); Red Blood Count 3.55 X10*6/uL (4.20-5.50); White Blood Count 6.8 X10*3/uL (4.8-10.8)
[2023-02-18 05:32] LABS: Anion Gap 15 (12-20); Blood Urea Nitrogen 9 mg/dL (9-16); Calcium 9.3 mg/dL (8.4-10.2); Carbon Dioxide 23 mmol/L (22-29); Chloride 106 mmol/L (96-108); Creatinine Clr Calc Pharmacy 71.8; Estimated Glomerular Filt Rate > 60; Glucose Random 99 mg/dL (60-115); Potassium 3.8 mmol/L (3.3-5.1); Sodium 140 mmol/L (135-145)
--- NOTE | 2023-02-18 06:51 | PC.NURSE ---
pt resting comfortably with eyes closed, breathing even and unlabored
[2023-02-18] MEDS: Albuterol/Iprat 2.5/0.5MG 3 ML AMPUL.NEB INHALE (07:39)
[2023-02-18 07:40] VITALS: PULSE 81; RESP 20; O2SAT 94
--- NOTE | 2023-02-18 07:55 | PHA.MEDREC ---
Pharmacy Consult ? Medication Reconciliation Pharmacy has completed the medication reconciliation. Checked med rec done by nursing in am
--- NOTE | 2023-02-18 08:05 | MHC.CM.PN ---
PT REPORTS SHE LIVES ALONE AND IS INDEPENDENT WITH CARE SHE DENIES HAVING ANY SERVICES PT HAS OXYGEN AND A BIPAP SHE USES AT NIGHT AND A NEBULIZER PRN COMPLETED A HCP TODAY NAMING HER SISTER, MELVIN WAKEFIELD HER AGENT PCP: RAY BOGGS [facility]MM DELIVERED DCP: HOME NO SERVICES, CAR IS IN THE LOT
[2023-02-18] MEDS: 0.9 % Sodium Chloride Flush 3 ML SYRINGE IVFLUSH (09:04)
[2023-02-18 09:14] VITALS: BP 127/77; PULSE 91; RESP 18; TEMP 36.8; O2SAT 95
[2023-02-18] MEDS: Acetaminophen 325 MG TABLET 650 MG PO (09:32)
[2023-02-18 10:02] VITALS: BP 124/79; PULSE 91; RESP 16; O2SAT 92
--- NOTE | 2023-02-18 10:25 | P.DS_ITS ---
DS: Providers Provider Date of Service: 02/18/23 Date of admission: 02/17/23 22:13 Date of discharge: 02/18/23 Primary care physician: Grabiel Pressley MD Attending physician on admission: Denice Schwartz Attending physician on discharge: Dejan Suazo Discharging clinician: Aretha Ewing DS: Diagnosis Discharge Diagnosis (1) Acute hypoxic respiratory failure: Status: Acute DS: Summary Hospital Course Hospital Course: HPI on admission: This is a 57-year-old female with pertinent history of chronic hypoxemic respiratory failure due to asthma-COPD overlap syndrome, mood disorder, essential hypertension, NATASHA on nighttime BiPAP who presents to the emergency department for evaluation of dyspnea. Patient states she has been having dyspnea for the last 8-10 days. It has been progressive and worse with ambulation. Associated with intermittent productive cough and also has been having wheezing. Is using her home inhalers and home BiPAP. Patient denies fever, chills, chest discomfort, palpitations, abdominal pain, changes in urinary or bowel habits. In the emergency department, patient requiring 2-3 L supplemental oxygen and continued to wheeze despite DuoNeb treatments Hospital course: Patient admitted for asthma/COPD overlap exacerbation with acute hypoxemic respiratory failure. Has refused treatment with steroids due to history of steroid induced psychosis with prednisone. However has had marked improvement with scheduled nebulizer treatments, IV magnesium, and Zithromax. She is requesting to go home. She is maintaining oximetry 89-92% on room air and denies any shortness of breath. Only reporting a headache. No cough, congestion, fevers. Lungs are clear to auscultation bilaterally. Given the marked improvement in the symptoms and resolution of acute hypoxia (given advanced stage of her COPD, 89-92% oximetry on RA acceptable), will discharge home with PO azithromycin x 2 dose. Increase duonebs QID until symptoms resolve. Continue maintenance inhalers/medications as prescribed. Monitor O2 levels. Advised to return to the hospital for treatment if oximetry <88% or if symptoms worsen. Use supplemental O2 prn to maintain oximetry 90-92%. Follow up with PCP and plate roller. Time spent discussing smoking cessation with patient: more than 10 minutes Status at Discharge Functional status at discharge: independent ambulation Overall status at discharge: patient is progressing back to baseline Time Spent with Patient Time attestation: Total time managing care of this patient today ____ minutes. Discharge coordination time: Greater than 30 minutes Quality: Safe Use of Opioids Does Pt have an Active Cancer Diagnosis on the Problem List?: No Quality: Stroke Does the patient have a stroke diagnosis?: No Physical Exam Vital Signs: Vital Signs: Last Vital Signs Temp 98.2 F 02/18/23 09:14 Pulse 91 02/18/23 10:02 Resp 16 02/18/23 10:02 BP 124/79 02/18/23 10:02 Pulse Ox 92 02/18/23 10:02 O2 Del Method Room Air 02/18/23 10:02 O2 Flow Rate 2 02/18/23 09:14 BMI result Body Mass Index 21.6 Constitutional - Awake and Alert, No apparent distress Eyes - PERRLA, EOMI Cardiovascular - S1S2, RRR, No edema Respiratory - Normal lung expansion, Normal respiratory effort, No respiratory distress, CTA bilaterally Extremities - no calf tenderness bilaterally, no swelling Skin - Warm/Dry Neurological - Alert & oriented x3 Psychological - Appropriate affect DS: Data Data Completed and Pending Completed studies during hospitalization [Text1]: Procedures Assistance with Respiratory Ventilation, Less than 24 Consecutive Hours, Continuous Positive Airway Pressure (02/27/21) Labs on day of discharge: Laboratory Results - last 24 hr 02/17/23 02/17/23 02/18/23 19:48 19:55 04:57 WBC 8.5 6.8 RBC 4.01 L 3.55 L Hgb 13.6 12.3 Hct 39.6 35.1 L MCV 98.8 H 98.9 H MCH 33.9 H 34.6 H MCHC 34.3 35.0 RDW 13.8 14.0 Plt Count 304 264 MPV 9.2 L 9.4 Immature Gran % (Auto) 0.2 0.3 Neut % (Auto) 61.8 64.2 Lymph % (Auto) 24.2 23.5 [place] % (Auto) 12.1 H 10.1 Eos % (Auto) 1.1 1.2 Baso % (Auto) 0.6 0.7 Lymph # (Auto) 2.1 1.6 [place] # (Auto) 1.0 0.7 Eos # (Auto) 0.1 0.1 Baso # (Auto) 0.1 0.1 Abs Immat Gran (auto) 0.02 0.02 Absolute Neuts (auto) 5.3 4.3 Absolute Nucleated RBC 0.000 0.000 Nucleated RBC % (auto) 0.0 0.0 VBG pH 7.39 VBG pCO2 41 VBG pO2 72 VBG HCO3 25 VBG O2 Saturation 92.0 VBG Base Excess 1.0 Sodium 141 140 Potassium 4.2 3.8 Chloride 105 106 Carbon Dioxide 24 23 Anion Gap 16 15 BUN 9 9 Creatinine 1.21 0.85 Estim Creat Clear Calc 50.4 71.8 Estimated GFR 46 > 60 Random Glucose 116 H 99 Lactic Acid 1.0 Calcium 10.3 H D 9.3 D Magnesium 2.1 Total Bilirubin 0.2 Direct Bilirubin < 0.2 AST 18 ALT 10 Alkaline Phosphatase 85 Troponin I High Sens < 2.7 Total Protein 7.2 Albumin 4.6 Procalcitonin 0.02 Influenza Type A (PCR) NEGATIVE Influenza Type B (PCR) NEGATIVE RSV RNA Qual (PCR) NEGATIVE SARS-CoV-2 RNA (RT-PCR) NEGATIVE Discharge Plan Discharge Anticipated Discharge Date/Time: 02/18/23 10:17 Patient Disposition: Home, Self-Care Discharge Diagnosis: COPD exacerbation, hypoxia Referrals: Po,Grabiel Gambino MD [Primary Care Provider] - 1 Week Discharge Medications: New azithromycin 500 mg tablet 500 mg PO DAILY 2 Days Qty: 2 0RF Continued omeprazole 20 mg capsule,delayed release(DR/EC) 20 mg PO DAILY 90 Days Qty: 90 2RF baclofen 20 mg tablet 20 mg PO BID 30 Days Qty: 60 12RF pregabalin 200 mg capsule 200 mg PO BID 30 Days Qty: 60 1RF Anoro Ellipta 62.5-25 mcg/actuation blister with device 1 ea PO DAILY Qty: 60 0RF methotrexate sodium 2.5 mg tablet 7.5 mg PO QWEEK Qty: 38 0RF clonazepam 1 mg tablet 1 mg PO TID theophylline 300 mg tablet extended release 12 hr 150 mg PO Q12H montelukast 10 mg tablet 10 mg PO DAILY risperidone 0.5 mg tablet 0.5 mg PO TID roflumilast 500 mcg tablet 500 mcg PO DAILY Anoro Ellipta 62.5-25 mcg/actuation blister with device 1 ea INHALATION DAILY ipratropium-albuterol 0.5 mg-3 mg(2.5 mg base)/3 mL solution for nebulization 3 ml inhalation BID sumatriptan succinate 50 mg tablet 50 mg PO DAILY PRN (Reason: Migraine Headache) acetaminophen 500 mg tablet 500 mg PO Q4H PRN (Reason: pain) bupropion HCl 75 mg tablet 37.5 mg PO DAILY nicotine 21 mg/24 hr patch 24 hour 1 patch topical DAILY hydroxychloroquine 200 mg tablet 200 mg PO DAILY ibuprofen 600 mg tablet 600 mg PO QID PRN (Reason: pain) amitriptyline 100 mg tablet 100 mg PO BEDTIME buspirone 15 mg tablet 15 mg PO TID oxycodone 5 mg tablet 5 mg PO Q6H PRN (Reason: pain) Combivent Respimat 20-100 mcg/actuation mist 1 puff INHALATION QID lisinopril 10 mg tablet 10 mg PO DAILY 30 Days Qty: 30 4RF (DME) Oxygen Home Use Kit See Rx Instructions .Route Patient Comments: pt uses oxygen at hs Rx Instructions: As directed trazodone 50 mg tablet 100 mg PO BEDTIME (DME) CPAP Machine/Device Device See Rx Instructions .ROUTE Rx Instructions: As directed (DME) nebulizers Misc See Rx Instructions .ROUTE Rx Instructions: As directed Discharge Orders: Discharge Order (Routine); Ordered 02/18/23 Ordered By: Aretha Ewing Diet: Advance to usual diet Activity on Discharge: As tolerated Stand Alone Forms: Patient Portal Discharge page Care Plan Goals: Treat and prevent future COPD exacerbations Health Concerns: Asthma/COPD Hypoxia Plan of Treatment: Asthma/COPD exacerbation wtih hypoxia -improved with nebulizer treatments, IV magnesium, and zithromax -You refused steroid treatment due to adverse affect, however if symptoms would recommend steroids- can try a different steroid then prednisone -Continue zithromax, next dose due around 11pm. x 2 doses -Increase ipatropium-albuterol to every 6 hours until symptoms resolve. Continue maintenance inhalers/medications -monitor O2 levels with goal 90-92% minimum. Use oxygen if needed and titrate as tolerated -Return if O2 levels are persistently lower than 88% or for any worsening shortness of breath Follow up with PCP and pulmonology soon Assessment: see above
[2023-02-18] MEDS: Nicotine 21 MG PATCH.TD24 TRANSDERMA (10:27)
[2023-02-18] MEDS: Theophylline Anhydrous ER 300 MG TAB.ER.12H 150 MG PO (10:28)
== END 2023-02-18 11:21 | disposition home or self-care (01) | DRG 190 ==
LOC: HO.ED 22:13 → HO.EDOVER 22:19
PROVIDERS: Physician Assistant; Admitting Provider Student in an Organized Health Care Education/Training Program; Emergency Provider Student in an Organized Health Care Education/Training Program; PCP Internal Medicine; Visit Provider Physician Assistant
DX: J44.1 Chronic obstructive pulmonary disease with (acute) exacerbation (principal); J96.21 Acute and chronic respiratory failure with hypoxia; J45.901 Unspecified asthma with (acute) exacerbation; G47.33 Obstructive sleep apnea (adult) (pediatric); I10 Essential (primary) hypertension; F17.290 Nicotine dependence, other tobacco product, uncomplicated; Z20.822 Contact with and (suspected) exposure to COVID-19; Z90.2 Acquired absence of lung [part of]; Z79.631 Long term (current) use of antimetabolite agent; Z79.899 Other long term (current) drug therapy
CPT/HCPCS: 0241U; 36415; 71045; 80048; 80076; 82803; 83605; 83735; 84145; 84484; 85025; 87040; 87205; 93005; 94640; 99285; J0456; J1650; J3475

== ENCOUNTER → 2023-02-17 22:13 | Outpatient (BNV) | payer MEDICARE, MEDICAID, SELFPAY | PROVIDERS: Admitting Provider Student in an Organized Health Care Education/Training Program; Emergency Provider Student in an Organized Health Care Education/Training Program; PCP Internal Medicine; Visit Provider Student in an Organized Health Care Education/Training Program | DX: J96.01 Acute respiratory failure with hypoxia (principal) | CPT/HCPCS: 99222; 99239 ==

== ENCOUNTER 2023-02-19 17:13 | Emergency (ER) | payer MEDICARE, MEDICAID, SELFPAY ==
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
[2023-02-19 17:17] VITALS: BP 126/74; PULSE 105; O2SAT 96
[2023-02-19 17:23] VITALS: BP 131/88; PULSE 100; RESP 25; TEMP 36.8; O2SAT 97; BMI 22.6
[2023-02-19 18:39] VITALS: BP 117/75; PULSE 101; RESP 15; TEMP 36.7; O2SAT 85
[2023-02-19 18:43] VITALS: O2SAT 92
[2023-02-19] MEDS: Albuterol/Iprat 2.5/0.5MG 3 ML AMPUL.NEB INHALE (18:51)
[2023-02-19 18:55] VITALS: PULSE 97; RESP 18; O2SAT 94
[2023-02-19 21:02] VITALS: O2SAT 90
== END 2023-02-19 21:04 | disposition home or self-care (01) ==
PROVIDERS: Emergency Provider Internal Medicine; PCP Internal Medicine
DX: J96.11 Chronic respiratory failure with hypoxia (principal); J44.9 Chronic obstructive pulmonary disease, unspecified; I10 Essential (primary) hypertension; Z87.891 Personal history of nicotine dependence; Z79.899 Other long term (current) drug therapy
CPT/HCPCS: 94640; 99284; 99285

== ENCOUNTER 2023-02-22 13:36 | Outpatient (AMB) | payer MEDICARE, MEDICAID, SELFPAY ==
[2023-02-22 13:46] VITALS: PULSE 92; O2SAT 92; BMI 21.3
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
[2023-02-22 15:00] VITALS: PULSE 111; O2SAT 89
== END 2023-02-22 14:36 | disposition home or self-care (01) ==
PROVIDERS: PCP Internal Medicine; Visit Provider Hospitalist
DX: J96.01 Acute respiratory failure with hypoxia (principal); J43.2 Centrilobular emphysema; I95.1 Orthostatic hypotension; R00.0 Tachycardia, unspecified; R91.8 Other nonspecific abnormal finding of lung field; G47.33 Obstructive sleep apnea (adult) (pediatric); Z99.89 Dependence on other enabling machines and devices
CPT/HCPCS: 94618; 99213

== ENCOUNTER → 2023-02-22 13:36 | Outpatient (BNVA) | payer MEDICARE, MEDICAID, SELFPAY | PROVIDERS: PCP Internal Medicine; Visit Provider Hospitalist | DX: J96.01 Acute respiratory failure with hypoxia (principal); J43.2 Centrilobular emphysema; I95.1 Orthostatic hypotension; R00.0 Tachycardia, unspecified; R91.8 Other nonspecific abnormal finding of lung field; G47.33 Obstructive sleep apnea (adult) (pediatric); Z99.89 Dependence on other enabling machines and devices | CPT/HCPCS: 94618; 99212 ==

== ENCOUNTER 2023-02-22 14:41 | Emergency (ER) | payer MEDICARE, MEDICAID, SELFPAY ==
--- NOTE | ~2023-02-22 | CT_ITS ---
EXAMINATION: CT ANGIOGRAM OF THE CHEST WITH AND WITHOUT CONTRAST (CT PULMONARY ANGIOGRAM FOR PE) CLINICAL INFORMATION: Reason for Exam SOB, hypoxia, tachycardia COMPARISON: Noncontrast CT chest performed 01/26/2022. TECHNIQUE: Prior to contrast administration, noncontrast localization images were obtained. Subsequently, multidetector volumetric imaging was performed from the thoracic inlet to below the diaphragms following the administration of 80 mL Omnipaque 350 intravenous contrast. No contrast reaction reported Sagittal, coronal, and MIP oblique sagittal reformatted images were obtained on the CT workstation, uploaded to PACS, and reviewed. This CT examination was performed using dose optimization techniques as appropriate, variously including the following: *Automated exposure control *Adjustment of mA and/or kV according to patient size (this includes techniques or standardized protocols for targeted exams where dose is matched to indication/reason for exam; i.e. extremities or head) *Use of iterative reconstruction technique Total exam dose-length product 201 mGy-cm FINDINGS: QUALITY OF STUDY/CONTRAST BOLUS: Satisfactory. PULMONARY ARTERIES: No pulmonary emboli. THORACIC AORTA: No aneurysm. LUNG: There is diffuse emphysema/COPD. There is patchy consolidation at the left base. PLEURA: No pleural effusion or pneumothorax. MEDIASTINUM: Normal heart size. No pericardial effusion. No hilar or mediastinal lymphadenopathy. No evidence of septal bowing or right heart strain. CORONARY ARTERY CALCIFICATION: None visualized on this study. CHEST WALL/AXILLA: No axillary or internal mammary lymphadenopathy. OSSEOUS STRUCTURES: No acute or suspicious osseous abnormality. UPPER ABDOMEN: Unremarkable. No reflux of contrast into the hepatic veins to suggest elevated right heart pressures. CT/CT angio chest PE protocol IMPRESSION: No evidence for pulmonary embolism. Diffuse emphysema. Patchy consolidation at the left base. Consider early versus residual pneumonia. VTE: Negative for pulmonary embolism.
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
--- NOTE | 2023-02-22 14:47 | ECG_ITS ---
Test Reason : SOB Blood Pressure : / mmHG Vent. Rate : 099 BPM Atrial Rate : 099 BPM P-R Int : 144 ms QRS Dur : 080 ms QT Int : 354 ms P-R-T Axes : 074 076 074 degrees QTc Int : 454 ms Normal sinus rhythm Possible Left atrial enlargement Borderline ECG When compared with ECG of 17-FEB-2023 19:51, No significant change was found Referred By: Adriana Perdomo Electronically Signed By:KRYSTAL GIBSON MD
[2023-02-22 14:49] VITALS: BP 136/77; PULSE 107; RESP 20; TEMP 36.6; O2SAT 92; BMI 21.6
[2023-02-22 15:23] LABS: MANUAL DIFF FLAG NO
[2023-02-22] MEDS: 0.9 % Sodium Chloride 1,000 ML 999 ML IVCONT ×2 (15:23→16:34)
--- NOTE | 2023-02-22 15:25 | PC.NURSE ---
a&ox3, vss and up to date. ekg performed. 20gIV placed in the right forearm w/o complications. labs drawn/sent to lab. IVF hung per provider order. pt c/o 8/10 non-radiating chest pain at the time. pt c/o SOB/palpitations at this time. pt on 2L via NC which is also her baseline at home. pt able to speak in full/clear sentences w/o difficulty. wheezing/crackles noted upon inspiration/expiration. friend bedside for support. call vega placed within reach.
[2023-02-22 15:26] LABS: Basophils Absolute Auto 0.1 X10*3/uL (0.0-0.2); Basophils Percent Auto 0.7 % (0-2); Eosinophils Absolute Auto 0.1 X10*3/uL (0.0-0.4); Eosinophils Percent Auto 0.8 % (0-4); Hematocrit 38.4 % (37.0-47.0); Hemoglobin 13.1 g/dl (12.0-16.0); Imm Gran Abs Auto 0.02 X10*3/uL (0.00-0.03); Imm Gran Pct Auto 0.3 % (0.0-0.4); Lymphocytes Absolute Auto 1.3 X10*3/uL (1.2-4.9); Mean Corpuscular HGB Conc 34.1 g/dl (31.0-35.0); Mean Corpuscular Hemoglobin 33.8 pg (27.0-33.0); Mean Platelet Volume 9.4 fL (9.4-12.3); Monocytes Absolute Auto 0.9 X10*3/uL (0.1-1.2); Neutrophils Absolute Auto 4.8 x10*3/uL (2.0-8.3); Neutrophils Percent Auto 68.2 % (45-73); Platelet Count 284 X10*3/uL (160-400); Red Blood Count 3.88 X10*6/uL (4.20-5.50); Red Cell Distribution Width 13.8 % (11.0-16.0); White Blood Count 7.1 X10*3/uL (4.8-10.8)
[2023-02-22 15:30] LABS: Prothrombin Time 12.1 SEC (11.1-13.3)
[2023-02-22 15:33] LABS: Partial Thromboplastin Time 38.1 SEC (26.0-36.4)
[2023-02-22 15:44] LABS: Alanine Aminotransferase 11 U/L (0-31); Albumin Level 4.4 g/dL (3.5-5.0); Alkaline Phosphatase 84 U/L (39-117); Anion Gap 17 (12-20); Aspartate Amino Transferase 19 U/L (5-31); Bilirubin Total 0.2 mg/dL (0.0-1.0); Blood Urea Nitrogen 6 mg/dL (9-16); Calcium 10.1 mg/dL (8.4-10.2); Carbon Dioxide 20 mmol/L (22-29); Chloride 108 mmol/L (96-108); Creatinine Clr Calc Pharmacy 62.9; Estimated Glomerular Filt Rate 59; Glucose Random 98 mg/dL (60-115); Magnesium 2.1 mg/dL (1.6-2.6); Potassium 4.5 mmol/L (3.3-5.1); Sodium 140 mmol/L (135-145); Total Protein 7.2 g/dL (6.5-8.0)
[2023-02-22 15:54] LABS: Troponin-I High Sensitivity < 2.7 ng/L (<3.5-17.0)
[2023-02-22 16:30] LABS: Influenza A PCR NEGATIVE (Negative); Influenza B PCR NEGATIVE (Negative); Resp Syncy Virus RNA Qual PCR NEGATIVE (Negative); SARS COV2 PCR INHOUSE NEGATIVE (Negative)
--- NOTE | 2023-02-22 16:35 | PC.NURSE ---
second bag of IVF administered at this time per provider order. pt states chest pain has decreased somewhat prior to arrival. pt still verbalizing SOB at this time. respirations even and unlabored. call vega placed within reach.
--- NOTE | 2023-02-22 16:53 | PC.NURSE ---
pt currently being brought to CT.
[2023-02-22] MEDS: iohexoL 350 MG/ML 75 ML INFUS..BTL 65 ML IV (17:02)
--- NOTE | 2023-02-22 17:05 | PC.NURSE ---
pt returned from CT at this time. vss. nsr/sinus tachy on playground monitor. pt states that she will attempt to urinate so urine sample can be obtained shortly.
[2023-02-22 17:39] VITALS: BP 167/89; PULSE 95; RESP 22; O2SAT 98
--- NOTE | 2023-02-22 17:42 | PC.NURSE ---
urine obtained and sent to lab.
[2023-02-22 17:52] LABS: Appearance Urine Clear; Color Urine Yellow; Glucose Urine UA Negative (Negative); Leukocyte Esterase Urine Negative (Negative); Nitrite Urine Negative (Negative); Specific Gravity - Urine 1.015 (1.005-1.025); Urine Blood Negative (Negative); Urine Ketones Negative (Negative); Urine Protein Negative (Neg-Trace)
--- NOTE | 2023-02-22 18:47 | PC.NURSE ---
pt spoke w/ ED provider. pt aware of plan of care at this time. pt currently eating at this time. pt states pain level has decreased since coming into ED. pt still able to speak in full/clear sentences w/o difficulty. respirations even and unlabored at this time. call vega placed within reach.
--- NOTE | 2023-02-22 19:06 | PC.NURSE ---
assumed care of patient at 1900 - pt ready for discharge and waiting for ambulance transport back home
--- NOTE | 2023-02-22 20:03 | PC.NURSE ---
pt had sister come pick her up instead as she did not want to wait for ambulance transport back home. [employer] aware to cancel ambulance ride. patient brought out to waiting room with O2 tank and wheel chair to be picked up from sister.
== END 2023-02-22 20:04 | disposition home or self-care (01) ==
PROVIDERS: Physician Assistant Medical; Emergency Provider Emergency Medicine; PCP Internal Medicine
DX: J18.1 Lobar pneumonia, unspecified organism (principal); R06.02 Shortness of breath; R00.0 Tachycardia, unspecified; Z20.822 Contact with and (suspected) exposure to COVID-19; Z20.828 Contact with and (suspected) exposure to other viral communicable diseases; Z87.891 Personal history of nicotine dependence; Z79.899 Other long term (current) drug therapy
CPT/HCPCS: 0241U; 71275; 80053; 81003; 83735; 84484; 85025; 85610; 85730; 93005; 96360; 96361; 99284; 99285; Q9967

== ENCOUNTER 2023-03-15 15:52 | Outpatient (AMB) | payer MEDICARE, MEDICAID, SELFPAY ==
[2023-03-15 16:23] VITALS: BP 96/64; PULSE 86; O2SAT 96; BMI 22.9
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
== END 2023-03-15 17:18 | disposition home or self-care (01) ==
PROVIDERS: PCP Internal Medicine; Visit Provider Internal Medicine
DX: J44.9 Chronic obstructive pulmonary disease, unspecified (principal); J18.9 Pneumonia, unspecified organism; G47.33 Obstructive sleep apnea (adult) (pediatric); Z99.89 Dependence on other enabling machines and devices
CPT/HCPCS: 99214

== ENCOUNTER 2023-03-23 10:50 | Outpatient (AMB) | payer MEDICARE, MEDICAID, SELFPAY ==
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
[2023-03-23 10:56] VITALS: BP 130/70; BMI 22.9
[2023-03-23 11:27] VITALS: O2SAT 95
== END 2023-03-23 11:27 | disposition home or self-care (01) ==
PROVIDERS: PCP Internal Medicine; Visit Provider Nurse Practitioner Family
DX: J44.9 Chronic obstructive pulmonary disease, unspecified (principal); G47.33 Obstructive sleep apnea (adult) (pediatric); Z99.89 Dependence on other enabling machines and devices; I10 Essential (primary) hypertension
CPT/HCPCS: 99213

== ENCOUNTER 2023-03-30 12:50 | Outpatient (REF) | payer MEDICARE, MEDICAID, SELFPAY ==
--- NOTE | 2023-03-30 13:51 | PFT_ITS ---
Indication: Dyspnea Spirometry [FEV1 to FVC 54%; FEV1 1.88 L which is 91% predicted; FVC 3.45 L which is 91% predicted. No significant response to bronchodilators noted. Maximum voluntary ventilation 60% predicted.] Lung Volumes [Total lung capacity 80% predicted] Diffusion Capacity [DLCO 41% predicted] 6 Minute Walk Test [] Interpretation [There is an obstructive ventilatory defect consistent with mild COPD. No response to bronchodilators noted. She does have mild to moderate decrease in the maximum voluntary ventilation secondary to likely deconditioning. Lung volumes are low normal. The patient does have a moderate to severe diffusion impairment secondary to emphysema and other parenchymal lung condition should also be considered. Clinical correlation warranted.] MTDD
== END 2023-03-30 12:51 | disposition home or self-care (01) ==
LOC: HO.RESP 12:50
PROVIDERS: PCP Internal Medicine; Visit Provider Hospitalist
DX: J43.9 Emphysema, unspecified (principal)
CPT/HCPCS: 94010; 94727; 94729

== ENCOUNTER → 2023-03-30 13:51 | Outpatient (BNV) | payer MEDICARE, MEDICAID, SELFPAY | PROVIDERS: PCP Internal Medicine; Visit Provider Hospitalist | DX: J43.9 Emphysema, unspecified (principal) | CPT/HCPCS: 94060; 94727; 94729 ==

== ENCOUNTER 2023-04-15 09:33 | Outpatient (AMB) | payer MEDICARE, MEDICAID, SELFPAY ==
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
[2023-04-15 09:37] VITALS: PULSE 90; O2SAT 95; BMI 21.9
[2023-04-15 13:35] VITALS: PULSE 107; O2SAT 94
== END 2023-04-15 10:04 | disposition home or self-care (01) ==
PROVIDERS: PCP Internal Medicine; Visit Provider Hospitalist
DX: J43.2 Centrilobular emphysema (principal); R91.8 Other nonspecific abnormal finding of lung field; G47.33 Obstructive sleep apnea (adult) (pediatric)
CPT/HCPCS: 94618; 99214

== ENCOUNTER → 2023-04-15 09:33 | Outpatient (BNVA) | payer MEDICARE, MEDICAID, SELFPAY | PROVIDERS: PCP Internal Medicine; Visit Provider Hospitalist | DX: J43.2 Centrilobular emphysema (principal); R91.8 Other nonspecific abnormal finding of lung field; G47.33 Obstructive sleep apnea (adult) (pediatric) | CPT/HCPCS: 94618; 99212 ==

== ENCOUNTER 2023-05-25 09:15 | Outpatient (REF) | payer MEDICARE, MEDICAID, SELFPAY | END 2023-05-25 09:16 | disposition home or self-care (01) | LOC: HO.LNP 09:15 | PROVIDERS: PCP Internal Medicine; Visit Provider Hospitalist | DX: J43.2 Centrilobular emphysema (principal); J44.9 Chronic obstructive pulmonary disease, unspecified; Z79.899 Other long term (current) drug therapy | CPT/HCPCS: 87070; 87205; 94640; 99211 ==

== ENCOUNTER 2023-05-25 09:15 | Outpatient (AMB) | payer MEDICARE, MEDICAID, SELFPAY ==
[2023-05-25 09:31] VITALS: BP 110/66; PULSE 100; O2SAT 99
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
== END 2023-05-25 09:43 | disposition home or self-care (01) ==
PROVIDERS: PCP Internal Medicine; Visit Provider Hospitalist
DX: J44.9 Chronic obstructive pulmonary disease, unspecified (principal); J43.2 Centrilobular emphysema

== ENCOUNTER 2023-05-26 10:46 | Outpatient (AMB) | payer MEDICARE, MEDICAID, SELFPAY ==
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
[2023-05-26 11:10] VITALS: BP 150/84; PULSE 118; RESP 12; O2SAT 96; BMI 23.2
== END 2023-05-26 11:22 | disposition home or self-care (01) ==
PROVIDERS: PCP Internal Medicine; Visit Provider Anesthesiology
DX: M47.816 Spondylosis without myelopathy or radiculopathy, lumbar region (principal); G89.4 Chronic pain syndrome; M51.36 Other intervertebral disc degeneration, lumbar region
CPT/HCPCS: 99214

== ENCOUNTER → 2023-05-26 10:46 | Outpatient (BNVA) | payer MEDICARE, MEDICAID, SELFPAY | PROVIDERS: PCP Internal Medicine; Visit Provider Anesthesiology | DX: M47.816 Spondylosis without myelopathy or radiculopathy, lumbar region (principal); M51.36 Other intervertebral disc degeneration, lumbar region; G89.4 Chronic pain syndrome | CPT/HCPCS: 99212 ==

== ENCOUNTER 2023-06-23 12:58 | Outpatient (AMB) | payer MEDICARE, MEDICAID, SELFPAY ==
[2023-06-23 13:04] VITALS: BP 122/72; PULSE 92; O2SAT 97; BMI 24.3
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
== END 2023-06-23 13:56 | disposition home or self-care (01) ==
PROVIDERS: PCP Internal Medicine; Visit Provider Internal Medicine
DX: J44.9 Chronic obstructive pulmonary disease, unspecified (principal); G47.33 Obstructive sleep apnea (adult) (pediatric); Z99.89 Dependence on other enabling machines and devices; I10 Essential (primary) hypertension; E78.5 Hyperlipidemia, unspecified; F41.1 Generalized anxiety disorder; K21.9 Gastro-esophageal reflux disease without esophagitis; M25.512 Pain in left shoulder
CPT/HCPCS: 99214

== ENCOUNTER 2023-07-05 07:58 | Outpatient (REF) | payer MEDICARE, MEDICAID, SELFPAY ==
--- NOTE | ~2023-07-05 | CT_ITS ---
EXAMINATION: CT CHEST WITHOUT CONTRAST CLINICAL INFORMATION: Pulmonary nodules. COMPARISON: Chest CTs dating between February 22, 2023 and June 01, 2019. TECHNIQUE: Multidetector volumetric CT imaging of the chest was done. Axial MIP volume rendering provided. Sagittal and coronal reformatted images were obtained. This CT examination was performed using dose optimization techniques as appropriate, variously including the following: *Automated exposure control *Adjustment of mA and/or kV according to patient size (this includes techniques or standardized protocols for targeted exams where dose is matched to indication/reason for exam; i.e. extremities or head) *Use of iterative reconstruction technique DLP: 155 mGy-cm FINDINGS: LUNGS: Moderate to severe emphysema. No suspicious lung nodule identified. No significant radiographic change in biapical fibronodular changes with associated benign-appearing calcification. Probable postsurgical changes involving the medial aspect of the right lung apex, also similar in appearance. Previously seen left lower lobe focal infiltrate no longer present. MEDIASTINUM: The mediastinum appears unremarkable. CORONARY ARTERY CALCIFICATION: None visualized on this study. PLEURA: There is no pleural effusion. No pleural mass or thickening. CHEST WALL/AXILLA: Bilateral breast prostheses. No lymphadenopathy by size criteria. UPPER ABDOMEN: Unremarkable. OSSEOUS STRUCTURES: Unremarkable. CT/CT chest wo IV con IMPRESSION: No suspicious lung nodule identified. Additional findings as detailed above.
== END 2023-07-05 07:59 | disposition home or self-care (01) ==
LOC: HO.CT 07:58
PROVIDERS: PCP Internal Medicine; Visit Provider Hospitalist
DX: R91.8 Other nonspecific abnormal finding of lung field (principal)
CPT/HCPCS: 71250

== ENCOUNTER 2023-07-13 10:38 | Outpatient (AMB) | payer MEDICARE, MEDICAID, SELFPAY ==
[2023-07-13 10:41] VITALS: BP 118/62; PULSE 104; O2SAT 94; BMI 24.2
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
[2023-07-13 20:57] VITALS: PULSE 78; O2SAT 94
== END 2023-07-13 11:09 | disposition home or self-care (01) ==
PROVIDERS: PCP Internal Medicine; Visit Provider Hospitalist
DX: J43.2 Centrilobular emphysema (principal); R91.8 Other nonspecific abnormal finding of lung field; G47.33 Obstructive sleep apnea (adult) (pediatric)
CPT/HCPCS: 94618; 99214

== ENCOUNTER → 2023-07-13 10:38 | Outpatient (BNVA) | payer MEDICARE, MEDICAID, SELFPAY | PROVIDERS: PCP Internal Medicine; Visit Provider Hospitalist | DX: J43.9 Emphysema, unspecified (principal); R91.8 Other nonspecific abnormal finding of lung field; G47.33 Obstructive sleep apnea (adult) (pediatric) | CPT/HCPCS: 94618; 99212 ==

== ENCOUNTER 2023-07-23 11:31 | Day surgery (SDC) | payer MEDICARE, MEDICAID, SELFPAY ==
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
--- NOTE | ~2023-07-23 | FL_ITS ---
EXAMINATION: XR FLUOROSCOPY WITH IMAGES CLINICAL INFORMATION: L5 SPRINT PERIPHERAL NERVE STIMULATOR COMPARISON: None available. TECHNIQUE: Fluoroscopy Supervised By: Dr. Shaquille Salguero. Fluoroscopy Time: . Cumulative Dose: 7.5067 mGy. DAP: 2.6213 Gycm2. Images: 1. FINDINGS: Single AP image demonstrates the lumbar spine with a radiopaque curvilinear wire density that travels cranially from the level of the inferior endplate of L4, then turns and courses caudally with apex at the level of L2 and tip terminating at the level of L5-S1 intervertebral disc space. Please see Dr. Shaquille Salguero procedure note for full details. FL/FL guidance in OR IMPRESSION: Flyoroscopy provided to the referring provider for pain control.
[2023-07-23 12:08] VITALS: BMI 22.7
[2023-07-23 12:11] VITALS: BP 135/95; PULSE 90; RESP 16; TEMP 36.4; O2SAT 96
[2023-07-23] MEDS: Lactated Ringers 1,000 ML 100 ML IVCONT (12:19)
--- NOTE | 2023-07-23 12:45 | P.HPSUR_ITS ---
Pre-Procedural Eval Section A - 24 Hr Update-Section A only Date of Service: 07/23/23 The patient is an INPATIENT: No Changes since office visit: Yes Patient answered all questions The patient has been examined within 24 hours of the surgical procedure. The History & Physical has been completed within 30 days and I have reviewed it.: No Section B - Complete if H&P > 30 days Chief Complaint: Spondylosis without myelopathy or radiculopathy, Details of Present Illness: as above Relevant Family History (Specify if Yes): No Relevant Social History: None Present Medications: None Medical History: No relevant PMH History of Previous Operations: No relevant previous surgery Allergies: Allergies Allergy/AdvReac Type Severity Reaction Status Date / Time prednisone [PREDNISONE] Allergy Severe AGITATION Verified 07/13/23 10:45 doxycycline Allergy Mild Vomiting Verified 07/13/23 10:45 steroids Allergy shakes Uncoded 06/23/23 13:04 Review of Systems Sugical H&P ROS: Negative: Constitution, Cardiovascular, Respiratory, Neurological, Psychiatric, Hem-Onc, Allergic/Immunologic, Gastrointestinal, Genitourinary, Musculoskeletal, Integumentary, Endocrine and Eye s/Ears/Nose/Throat Exam Surgical H&P Exam: Normal: HEENT, Normal: Heart, Normal: Lungs, Normal: Extremities, Normal: Abdomen, Normal: Skin and Normal: Neurological Plan Diagnosis/Plan: Unchanged I have reviewed the history and physical and performed a pertinent physical examination on my patient. No changes have occurred unless specified. Time Spent With Patient Time: Total time managing care of this patient today ___5_ minutes.
--- NOTE | 2023-07-23 13:38 | W.PM.OPN ---
Operative Note Operative Note Date of Service: 07/23/23 Narrative: Sprint PNS attempt L5, finish on S1 on the right. Percutaneous implantation of peripheral nerve stimulation Sprint system. After the risks, benefits and alternatives were discussed with the patient and informed consent was obtained, patient was placed in the prone position and padded to foster comfort. Time out was performed delineating correct site and side of the procedure , name and of the patient, allergies. Sterily draped C-arm was brought over the operating field and clear picture of the L5 lamina on the right was delineated on the screen. The upper central portion of the lamina was chosen as a target of the needle tip insertion . After identifying and marking the intended target, the skin around the planned entry point and the subcutaneous tissues were injected with local anesthetic forming skin wheal.. A percutaneous sleeve and stimulating probe lead introduction system were assembled, inserted and advanced through the skin wheal to the point of interest under C-arm view in tunnel vision fashion, the introducer needle was delivered to a location in proximity to the nerve. Multiple stimulation parameters were used to deliver stimulation to the nerve in concert with stimulating at multiple positions around the nerve. Patient was awakened at this point and asked if they stimulation corresponds to her pain. However she stated that her pain is usually lower than the stimulating seen. The percutaneous sleeve and stimulating probe lead introduction system was redirected caudad to were the S1 lamina on the right. Multiple stimulation parameters were used to deliver stimulation to the nerve in concert with stimulating multiple positioned around the nerve. Patient reported that stimulation at this area corresponding to her pain. The nerve target acquisition was confirmed noting generation of in the corresponding to the nerve being stimulated. Various electrical parameter combinations were tested, and the lead location was adjusted (physically relocated) until the patient indicated overlapping the distribution of the patient?s typical region of pain. The stimulating probe was removed from the introducer and a percutaneous lead was guided through the needle and delivered to a location in similar proximity to the nerve. Final location was verified with electrical stimulation. The introducer needle was removed, and the exposed end of the percutaneous lead was attached to an external stimulator unit. At the end of the case various electrical parameter combinations were again tested until the patient indicated paresthesia or muscle tension overlapping the distribution of the patient?s typical region of pain. After confirming that lead impedance was in the normal range, the external unit was detached, the needle was removed, and the lead was anchored at the skin. The lead was threaded into the connector block and electrical continuity and desired patient response was confirmed. The connector block was attached to the external stimulator unit. The site was covered with a sterile occlusive dressing and a image was taken to document final placement. Upon completion of the procedure the patient was taken outside the OR where she recovered uneventfully she went home without immediate complications
[2023-07-23 13:41] VITALS: BP 156/90; PULSE 90; RESP 12; TEMP 36.6; O2SAT 99
--- NOTE | 2023-07-23 13:43 | PM.OP ---
Brief Operative Note Date of Service: 07/23/23 Pre-op diagnosis: Spondylosis lumbar without myelopathy or radiculopathy Post-op diagnosis: same Procedure: Sprint PNS S1 on the right Implants: Temporary positioned stimulating electrode. It will be maximum 60 days staying in her back. Surgeon: Shaquille Salguero MD Anesthesia: MAC Was an Honing Machine Set Up Operator Tool used for this Procedure?: No Estimated blood loss (mL): 0 Condition: stable Disposition: PACU
[2023-07-23 13:56] VITALS: BP 151/89; PULSE 89; RESP 14; O2SAT 100
[2023-07-23 14:11] VITALS: BP 155/88; PULSE 89; RESP 16; TEMP 36.6; O2SAT 100
== END 2023-07-23 14:45 | disposition home or self-care (01) ==
PROVIDERS: PCP Internal Medicine; Visit Provider Anesthesiology
PROC: (CPT 64555; principal; 2023-07-23 13:20)
DX: M47.816 Spondylosis without myelopathy or radiculopathy, lumbar region (principal); G89.4 Chronic pain syndrome; M51.36 Other intervertebral disc degeneration, lumbar region; M19.90 Unspecified osteoarthritis, unspecified site; R56.9 Unspecified convulsions; J44.9 Chronic obstructive pulmonary disease, unspecified; Z90.2 Acquired absence of lung [part of]; R91.8 Other nonspecific abnormal finding of lung field; G47.33 Obstructive sleep apnea (adult) (pediatric); Z99.89 Dependence on other enabling machines and devices; Z88.1 Allergy status to other antibiotic agents; Z88.5 Allergy status to narcotic agent; Z86.16 Personal history of COVID-19; Z98.890 Other specified postprocedural states; Z87.891 Personal history of nicotine dependence
CPT/HCPCS: 64555; A4364; C1778; J2250; J2704; J2795

== ENCOUNTER → 2023-07-23 11:31 | Outpatient (BNV) | payer MEDICARE, MEDICAID, SELFPAY | PROVIDERS: PCP Internal Medicine; Visit Provider Anesthesiology | DX: M47.816 Spondylosis without myelopathy or radiculopathy, lumbar region (principal) | CPT/HCPCS: 64555 ==

== ENCOUNTER 2023-07-29 09:30 | Outpatient (AMB) | payer MEDICARE, MEDICAID, SELFPAY ==
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
[2023-07-29 09:51] VITALS: BP 102/60; PULSE 110; RESP 12; O2SAT 97; BMI 23.2
== END 2023-07-29 10:37 | disposition home or self-care (01) ==
PROVIDERS: PCP Internal Medicine; Visit Provider Anesthesiology
DX: M47.816 Spondylosis without myelopathy or radiculopathy, lumbar region (principal); G89.4 Chronic pain syndrome; M51.36 Other intervertebral disc degeneration, lumbar region
CPT/HCPCS: 99024

== ENCOUNTER → 2023-07-29 09:30 | Outpatient (BNVA) | payer MEDICARE, MEDICAID, SELFPAY | PROVIDERS: PCP Internal Medicine; Visit Provider Anesthesiology | DX: M47.816 Spondylosis without myelopathy or radiculopathy, lumbar region (principal); M51.36 Other intervertebral disc degeneration, lumbar region; G89.4 Chronic pain syndrome | CPT/HCPCS: 99212 ==

== ENCOUNTER 2023-08-13 10:35 | Day surgery (SDC) | payer MEDICARE, MEDICAID, SELFPAY ==
[2023-08-11 10:22] VITALS: BMI 23.2
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
--- NOTE | ~2023-08-13 | FL_ITS ---
EXAMINATION: XR FLUOROSCOPY WITH IMAGES CLINICAL INFORMATION: L5 Sprint peripheral nerve stimulator placement. COMPARISON: Fluoroscopy dated 08/06/2023. TECHNIQUE: Fluoroscopy Supervised By: Dr. Shaquille Salguero. Fluoroscopy Time: 23.6 seconds. Cumulative Dose: 5.9723 mGy. DAP: 1.9964 Gycm2. Images: 2. FINDINGS: The submitted images show 2 wires, one right paracentral and left paracentral, with tips positioned at the L5 level. FL/FL guidance in OR IMPRESSION: Intraoperative fluoroscopic guidance is provided during L5 Sprint peripheral nerve stimulator placement. Please see the patient's Operative Report for full procedural details.
[2023-08-13 10:52] VITALS: BP 148/87; PULSE 107; RESP 18; TEMP 36.7; O2SAT 96; BMI 23.5
[2023-08-13] MEDS: Lactated Ringers 1,000 ML 100 ML IVCONT (11:11)
--- NOTE | 2023-08-13 11:14 | MHC.SHP ---
Pre-Procedural Eval Section A - 24 Hr Update-Section A only Date of Service: 08/13/23 The patient is an INPATIENT: No Changes since office visit: Yes Patient answered all questions The patient has been examined within 24 hours of the surgical procedure. The History & Physical has been completed within 30 days and I have reviewed it.: No Section B - Complete if H&P > 30 days Chief Complaint: Spondylosis without myelopathy or radiculopathy, Details of Present Illness: as above Relevant Family History (Specify if Yes): No Relevant Social History: None Present Medications: see Short Stay Collaborative assessment Medical History: No relevant PMH History of Previous Operations: No relevant previous surgery Allergies: Allergies Allergy/AdvReac Type Severity Reaction Status Date / Time prednisone [PREDNISONE] Allergy Severe AGITATION Verified 07/29/23 09:50 doxycycline Allergy Mild Vomiting Verified 07/29/23 09:50 steroids Allergy shakes Uncoded 06/23/23 13:04 Review of Systems Sugical H&P ROS: Negative: Constitution, Cardiovascular, Respiratory, Neurological, Psychiatric, Hem-Onc, Allergic/Immunologic, Gastrointestinal, Genitourinary, Musculoskeletal, Integumentary, Endocrine and Eyes/Ears/Nose/Throat Exam Surgical H&P Exam: Normal: HEENT, Normal: Heart, Normal: Lungs, Normal: Extremities, Normal: Abdomen, Normal: Skin and Normal: Neurological Plan Diagnosis/Plan: Change I have reviewed the history and physical and performed a pertinent physical examination on my patient. I will perform bilateral L5 possible S1 PND Sprint trial. Time Spent With Patient Time: Total time managing care of this patient today ____ minutes.
[2023-08-13 11:59] VITALS: BP 139/85; PULSE 90; RESP 15; TEMP 36.7; O2SAT 94
--- NOTE | 2023-08-13 12:01 | P.BOP_ITS ---
Brief Operative Note Date of Service: 08/13/23 Pre-op diagnosis: Spondylosis lumbar without myelopathy or radiculopathy. Post-op diagnosis: same Procedure: Sprint PNS bilateral Implants: Nothing permanent electrodes will stay for 60 days only. Surgeon: Shaquille Salguero MD Anesthesia: MAC Was an Certified Court Interpreter used for this Procedure?: No Estimated blood loss (mL): 0 Condition: stable Disposition: PACU
--- NOTE | 2023-08-13 12:02 | W.PM.OPN ---
Operative Note Operative Note Date of Service: 08/13/23 Narrative: Sprint PNS bilateral L5 . Percutaneous implantation of peripheral nerve stimulation Sprint system. After the risks, benefits and alternatives were discussed with the patient and informed consent was obtained, patient was placed in the prone position and padded to foster comfort. Time out was performed delineating correct site and side of the procedure , name and of the patient, allergies. Sterily draped C-arm was brought over the operating field and clear picture of the L5 lamina on the right was delineated on the screen. The upper central portion of the lamina was chosen as a target of the needle tip insertion . After identifying and marking the intended target, the skin around the planned entry point and the subcutaneous tissues were injected with local anesthetic forming skin wheal.. A percutaneous sleeve and stimulating probe lead introduction system were assembled, inserted and advanced through the skin wheal to the point of interest under C-arm view in tunnel vision fashion, the introducer needle was delivered to a location in proximity to the nerve. Multiple stimulation parameters were used to deliver stimulation to the nerve in concert with stimulating at multiple positions around the nerve. Patient was awakened at this point and asked if they stimulation corresponds to her pain. Patient reported that stimulation at this area corresponding to her pain. The nerve target acquisition was confirmed noting generation of in the corresponding to the nerve being stimulated. Various electrical parameter combinations were tested, and the lead location was adjusted (physically relocated) until the patient indicated overlapping the distribution of the patient?s typical region of pain. The stimulating probe was removed from the introducer and a percutaneous lead was guided through the needle and delivered to a location in similar proximity to the nerve. Final location was verified with electrical stimulation. The introducer needle was removed, and the exposed end of the percutaneous lead was attached to an external stimulator unit. After that attention was concentrated on the left side the procedure was repeated on the left side in the mirroring fashion. At the end of the case various electrical parameter combinations were again tested until the patient indicated paresthesia or muscle tension overlapping the distribution of the patient?s typical region of pain. After confirming that lead impedance was in the normal range, the external unit was detached, the needle was removed, and the lead was anchored at the skin. The lead was threaded into the connector block and electrical continuity and desired patient response was confirmed. The connector block was attached to the external stimulator unit. The site was covered with a sterile occlusive dressing and a image was taken to document final placement. Upon completion of the procedure the patient was taken outside the OR where she recovered uneventfully she went home without immediate complications
[2023-08-13 12:14] VITALS: BP 126/91; PULSE 93; RESP 20; TEMP -17.7; TEMP 0.1; O2SAT 5
== END 2023-08-13 15:17 | disposition home or self-care (01) ==
PROVIDERS: PCP Internal Medicine; Visit Provider Anesthesiology
PROC: (CPT 64555; principal; 2023-08-13 12:20)
DX: M47.816 Spondylosis without myelopathy or radiculopathy, lumbar region (principal); G89.4 Chronic pain syndrome; M51.36 Other intervertebral disc degeneration, lumbar region; D84.9 Immunodeficiency, unspecified; J44.9 Chronic obstructive pulmonary disease, unspecified; Z99.81 Dependence on supplemental oxygen; U09.9 Post COVID-19 condition, unspecified; R56.9 Unspecified convulsions; G47.33 Obstructive sleep apnea (adult) (pediatric); Z99.89 Dependence on other enabling machines and devices; Z79.899 Other long term (current) drug therapy; Z88.1 Allergy status to other antibiotic agents; Z88.8 Allergy status to other drugs, medicaments and biological substances; Z98.890 Other specified postprocedural states; F17.210 Nicotine dependence, cigarettes, uncomplicated; Z56.0 Unemployment, unspecified
CPT/HCPCS: 64555 ×2; A4364; C1778; J2250; J2795; J3010

== ENCOUNTER → 2023-08-13 10:35 | Outpatient (BNV) | payer MEDICARE, MEDICAID, SELFPAY | PROVIDERS: PCP Internal Medicine; Visit Provider Anesthesiology | DX: M47.816 Spondylosis without myelopathy or radiculopathy, lumbar region (principal) | CPT/HCPCS: 64555 ==

== ENCOUNTER 2023-08-19 11:04 | Outpatient (AMB) | payer MEDICARE, MEDICAID, SELFPAY ==
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
[2023-08-19 11:19] VITALS: BP 98/54; PULSE 97; RESP 14; O2SAT 97; BMI 23.5
== END 2023-08-19 11:40 | disposition home or self-care (01) ==
PROVIDERS: PCP Internal Medicine; Visit Provider Anesthesiology
DX: M47.816 Spondylosis without myelopathy or radiculopathy, lumbar region (principal); G89.4 Chronic pain syndrome; M51.36 Other intervertebral disc degeneration, lumbar region
CPT/HCPCS: 99024

== ENCOUNTER → 2023-08-19 11:04 | Outpatient (BNVA) | payer MEDICARE, MEDICAID, SELFPAY | PROVIDERS: PCP Internal Medicine; Visit Provider Anesthesiology | DX: M47.816 Spondylosis without myelopathy or radiculopathy, lumbar region (principal); M51.36 Other intervertebral disc degeneration, lumbar region; G89.12 Acute post-thoracotomy pain | CPT/HCPCS: 99212 ==

== ENCOUNTER → 2023-08-26 10:00 | Outpatient (BNVA) | payer MEDICARE, MEDICAID, SELFPAY | PROVIDERS: PCP Internal Medicine; Visit Provider Anesthesiology ==

== ENCOUNTER → 2023-09-02 08:50 | Outpatient (BNVA) | payer MEDICARE, MEDICAID, SELFPAY | PROVIDERS: PCP Internal Medicine; Visit Provider Nurse Practitioner Family ==

== ENCOUNTER → 2023-09-09 08:47 | Outpatient (BNVA) | payer MEDICARE, MEDICAID, SELFPAY | PROVIDERS: PCP Internal Medicine; Visit Provider Anesthesiology | DX: Z48.00 Encounter for change or removal of nonsurgical wound dressing (principal) | CPT/HCPCS: 99211 ==

== ENCOUNTER → 2023-09-16 08:56 | Outpatient (BNVA) | payer MEDICARE, MEDICAID, SELFPAY | PROVIDERS: PCP Internal Medicine; Visit Provider Nurse Practitioner Family ==

== ENCOUNTER 2023-09-17 06:09 | Outpatient (REF) | payer MEDICARE, MEDICAID, SELFPAY ==
[2023-09-17 06:28] LABS: MANUAL DIFF FLAG NO
[2023-09-17 08:01] LABS: Basophils Absolute Auto 0.1 X10*3/uL (0.0-0.2); Basophils Percent Auto 0.8 % (0-2); Eosinophils Absolute Auto 0.1 X10*3/uL (0.0-0.4); Eosinophils Percent Auto 1.8 % (0-4); Hematocrit 41.1 % (37.0-47.0); Hemoglobin 13.9 g/dl (12.0-16.0); Imm Gran Abs Auto 0.02 X10*3/uL (0.00-0.03); Imm Gran Pct Auto 0.3 % (0.0-0.4); Lymphocytes Absolute Auto 1.6 X10*3/uL (1.2-4.9); Mean Corpuscular HGB Conc 33.8 g/dl (31.0-35.0); Mean Corpuscular Hemoglobin 33.9 pg (27.0-33.0); Mean Corpuscular Volume 100.2 fL (80.0-98.0); Monocytes Absolute Auto 0.5 X10*3/uL (0.1-1.2); Neutrophils Absolute Auto 3.7 x10*3/uL (2.0-8.3); Neutrophils Percent Auto 62.1 % (45-73); Platelet Count 280 X10*3/uL (160-400); Red Cell Distribution Width 14.8 % (11.0-16.0)
[2023-09-17 08:48] LABS: Alanine Aminotransferase 10 U/L (0-31); Albumin Level 4.2 g/dL (3.5-5.0); Alkaline Phosphatase 74 U/L (39-117); Anion Gap 16 (12-20); Aspartate Amino Transferase 19 U/L (5-31); Bilirubin Direct 0.1 mg/dL (0.0-0.5); Bilirubin Total 0.3 mg/dL (0.0-1.0); Blood Urea Nitrogen 13 mg/dL (9-16); Calcium 9.7 mg/dL (8.4-10.2); Carbon Dioxide 24 mmol/L (22-29); Chloride 104 mmol/L (96-108); Estimated Glomerular Filt Rate > 60; Glucose Random 93 mg/dL (60-115); Sodium 140 mmol/L (135-145); Total Protein 6.7 g/dL (6.5-8.0)
[2023-09-17 08:53] LABS: Erythrocyte Sedimentation Rate 7 MM/HR (0-20)
== END 2023-09-17 06:10 | disposition home or self-care (01) ==
LOC: HO.LAB 06:09
PROVIDERS: PCP Internal Medicine; Visit Provider Hospitalist
DX: J44.9 Chronic obstructive pulmonary disease, unspecified (principal)
CPT/HCPCS: 36415; 80048; 80076; 80198; 85025; 85652

== ENCOUNTER → 2023-09-23 08:55 | Outpatient (BNVA) | payer MEDICARE, MEDICAID, SELFPAY | PROVIDERS: PCP Internal Medicine; Visit Provider Nurse Practitioner Family | DX: Z48.01 Encounter for change or removal of surgical wound dressing (principal) | CPT/HCPCS: 99211 ==

== ENCOUNTER → 2023-09-30 08:51 | Outpatient (BNVA) | payer MEDICARE, MEDICAID, SELFPAY | PROVIDERS: PCP Internal Medicine; Visit Provider Nurse Practitioner Family | DX: Z01.419 Encounter for gynecological examination (general) (routine) without abnormal findings (principal) | CPT/HCPCS: 99211 ==

== ENCOUNTER 2023-09-30 09:21 | Outpatient (AMB) | payer MEDICARE, MEDICAID, SELFPAY ==
[2023-09-30 09:30] VITALS: BP 126/82; BMI 23.6
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
== END 2023-09-30 10:10 | disposition home or self-care (01) ==
PROVIDERS: Visit Provider Obstetrics & Gynecology
DX: Z01.419 Encounter for gynecological examination (general) (routine) without abnormal findings (principal)
CPT/HCPCS: 99396

== ENCOUNTER 2023-10-06 13:03 | Outpatient (AMB) | payer MEDICARE, MEDICAID, SELFPAY ==
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
[2023-10-06 13:10] VITALS: BP 126/84; PULSE 95; RESP 16; O2SAT 99; BMI 23.6
== END 2023-10-06 13:33 | disposition home or self-care (01) ==
PROVIDERS: PCP Internal Medicine; Visit Provider Anesthesiology
DX: M47.816 Spondylosis without myelopathy or radiculopathy, lumbar region (principal); G89.4 Chronic pain syndrome; M51.36 Other intervertebral disc degeneration, lumbar region
CPT/HCPCS: 99214

== ENCOUNTER → 2023-10-06 13:03 | Outpatient (BNVA) | payer MEDICARE, MEDICAID, SELFPAY | PROVIDERS: PCP Internal Medicine; Visit Provider Anesthesiology | DX: M47.816 Spondylosis without myelopathy or radiculopathy, lumbar region (principal); M51.36 Other intervertebral disc degeneration, lumbar region; G89.4 Chronic pain syndrome | CPT/HCPCS: 99212 ==

== ENCOUNTER 2023-11-03 12:53 | Outpatient (AMB) | payer MEDICARE, MEDICAID, SELFPAY ==
[2023-11-03 12:54] VITALS: BP 156/98; PULSE 89; O2SAT 96; BMI 24.0
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
[2023-11-03 13:57] VITALS: BP 150/84
== END 2023-11-03 13:54 | disposition home or self-care (01) ==
PROVIDERS: PCP Internal Medicine
DX: R29.898 Other symptoms and signs involving the musculoskeletal system (principal); R20.0 Anesthesia of skin
CPT/HCPCS: 99214

== ENCOUNTER 2023-11-10 10:55 | Outpatient (AMB) | payer MEDICARE, MEDICAID, SELFPAY ==
[2023-11-10 11:13] VITALS: PULSE 80; O2SAT 95; BMI 23.0
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
== END 2023-11-10 11:32 | disposition home or self-care (01) ==
PROVIDERS: PCP Internal Medicine; Visit Provider Hospitalist
DX: J43.2 Centrilobular emphysema (principal); R91.8 Other nonspecific abnormal finding of lung field; G47.33 Obstructive sleep apnea (adult) (pediatric)
CPT/HCPCS: 99214

== ENCOUNTER → 2023-11-10 10:55 | Outpatient (BNVA) | payer MEDICARE, MEDICAID, SELFPAY | PROVIDERS: PCP Internal Medicine; Visit Provider Hospitalist | DX: J43.2 Centrilobular emphysema (principal); R91.8 Other nonspecific abnormal finding of lung field; G47.33 Obstructive sleep apnea (adult) (pediatric); Z79.899 Other long term (current) drug therapy; Z99.89 Dependence on other enabling machines and devices | CPT/HCPCS: 99212 ==

== ENCOUNTER 2023-11-16 09:27 | Outpatient (REF) | payer MEDICARE, MEDICAID, SELFPAY ==
--- NOTE | ~2023-11-16 | MM_ITS ---
EXAMINATION: MM SCREENING DIGITAL BREAST TOMOSYNTHESIS, BILATERAL CLINICAL INFORMATION: Screening. Asymptomatic. COMPARISON: Mammography: This study is compared with prior mammograms dating back to 2019. TECHNIQUE: Digital mammography is performed in craniocaudal and mediolateral oblique views along with computer-aided detection (CAD). Digital breast tomosynthesis is performed in implant-displaced craniocaudal and implant-displaced mediolateral oblique views along with computer-aided detection (CAD). Synthesized 2D images are generated from the tomosynthesis. FINDINGS: There are scattered areas of fibroglandular density (ACR BI-RADS breast composition Category b). There are bilateral, mammographically intact retropectoral saline breast implants. There are no significant masses, abnormal calcifications, or other abnormalities. There is a biopsy tissue marker in the right breast. MM/MM tomosynthesis screen imp BI IMPRESSION: There are no significant changes from prior study. ASSESSMENT: BI-RADS BI-RADS 2 - Benign Findings RECOMMENDATION: Routine annual mammography screening. 1 year F/U This patient's information was entered into a reminder system with a target due date for their next mammogram.
== END 2023-11-16 09:28 | disposition home or self-care (01) ==
LOC: HO.MAMMO 09:27
PROVIDERS: PCP Internal Medicine; Visit Provider Internal Medicine
DX: Z12.31 Encounter for screening mammogram for malignant neoplasm of breast (principal)
CPT/HCPCS: 77063; 77067

== ENCOUNTER → 2023-11-16 09:30 | Outpatient (BNV) | payer MEDICARE, MEDICAID, SELFPAY | PROVIDERS: PCP Internal Medicine; Visit Provider Radiology Diagnostic Radiology | DX: Z12.31 Encounter for screening mammogram for malignant neoplasm of breast (principal) | CPT/HCPCS: 77063; 77067 ==

== ENCOUNTER 2024-02-17 09:42 | Outpatient (AMB) | payer MEDICARE, MEDICAID, SELFPAY ==
[2024-02-17 09:43] VITALS: BP 110/72; PULSE 86; O2SAT 95; BMI 24.3
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
== END 2024-02-17 10:29 | disposition home or self-care (01) ==
PROVIDERS: PCP Internal Medicine; Visit Provider Internal Medicine
DX: R20.0 Anesthesia of skin (principal); M47.816 Spondylosis without myelopathy or radiculopathy, lumbar region; J44.9 Chronic obstructive pulmonary disease, unspecified; G47.33 Obstructive sleep apnea (adult) (pediatric); Z99.89 Dependence on other enabling machines and devices; D12.6 Benign neoplasm of colon, unspecified; K21.9 Gastro-esophageal reflux disease without esophagitis; I10 Essential (primary) hypertension; F41.1 Generalized anxiety disorder; E78.5 Hyperlipidemia, unspecified; R49.0 Dysphonia; M25.571 Pain in right ankle and joints of right foot

== ENCOUNTER → 2024-02-17 09:42 | Outpatient (BNVA) | payer MEDICARE, MEDICAID, SELFPAY | PROVIDERS: PCP Internal Medicine; Visit Provider Internal Medicine | DX: R20.0 Anesthesia of skin (principal); M47.816 Spondylosis without myelopathy or radiculopathy, lumbar region; G47.33 Obstructive sleep apnea (adult) (pediatric); Z99.89 Dependence on other enabling machines and devices; K21.9 Gastro-esophageal reflux disease without esophagitis; D12.6 Benign neoplasm of colon, unspecified; J44.9 Chronic obstructive pulmonary disease, unspecified; I10 Essential (primary) hypertension; F41.1 Generalized anxiety disorder; E78.5 Hyperlipidemia, unspecified; R49.0 Dysphonia; M25.571 Pain in right ankle and joints of right foot; G89.29 Other chronic pain; B35.3 Tinea pedis; Z72.0 Tobacco use | CPT/HCPCS: 99212 ==

== ENCOUNTER 2024-02-21 13:15 | Outpatient (REF) | payer MEDICARE, MEDICAID, SELFPAY ==
--- NOTE | ~2024-02-21 | XR_ITS ---
EXAMINATION: XR ANKLE, RIGHT. XR FOOT, RIGHT. CLINICAL INFORMATION: Right foot and ankle pain COMPARISON: Radiographs 08/18/2022 TECHNIQUE: 3 views of the right ankle. 3 views of the right foot. FINDINGS: Stable postsurgical changes of the 5th metatarsal head. Possible chronic erosion at the plantar/lateral aspect. No change. Mild degenerative changes of the 5th PIP joint and midfoot. No acute fracture or malalignment. The ankle mortise is preserved. XR/XR ankle RT 2V IMPRESSION: 1. No acute fracture or malalignment. 2. Stable postsurgical changes of the 5th metatarsal head with probable chronic erosion laterally. 3. Mild degenerative changes of the midfoot. Electronically signed by: Donis Lawton MD 03/15/2024 08:56 AM [facility]
--- NOTE | ~2024-02-21 | XR_ITS ---
EXAMINATION: XR ANKLE, RIGHT. XR FOOT, RIGHT. CLINICAL INFORMATION: Right foot and ankle pain COMPARISON: Radiographs 08/18/2022 TECHNIQUE: 3 views of the right ankle. 3 views of the right foot. FINDINGS: Stable postsurgical changes of the 5th metatarsal head. Possible chronic erosion at the plantar/lateral aspect. No change. Mild degenerative changes of the 5th PIP joint and midfoot. No acute fracture or malalignment. The ankle mortise is preserved. XR/XR foot RT 2V IMPRESSION: 1. No acute fracture or malalignment. 2. Stable postsurgical changes of the 5th metatarsal head with probable chronic erosion laterally. 3. Mild degenerative changes of the midfoot. Electronically signed by: Donis Lawton MD 03/15/2024 08:56 AM [facility]
== END 2024-02-21 13:16 | disposition home or self-care (01) ==
LOC: HO.XRAY 13:15
PROVIDERS: PCP Internal Medicine; Visit Provider Internal Medicine
DX: M25.571 Pain in right ankle and joints of right foot (principal)
CPT/HCPCS: 73600; 73620

== ENCOUNTER 2024-02-23 13:18 | Outpatient (AMB) | payer MEDICARE, MEDICAID, SELFPAY ==
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
[2024-02-23 13:21] VITALS: BP 92/63; PULSE 102; BMI 24.0
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
== END 2024-02-23 14:00 | disposition home or self-care (01) ==
PROVIDERS: PCP Internal Medicine; Visit Provider Nurse Practitioner
DX: D12.6 Benign neoplasm of colon, unspecified (principal); G47.33 Obstructive sleep apnea (adult) (pediatric); J44.9 Chronic obstructive pulmonary disease, unspecified; J96.01 Acute respiratory failure with hypoxia; Z99.81 Dependence on supplemental oxygen
CPT/HCPCS: 99203

== ENCOUNTER → 2024-02-23 13:18 | Outpatient (BNVA) | payer MEDICARE, MEDICAID, SELFPAY | PROVIDERS: PCP Internal Medicine; Visit Provider Nurse Practitioner | DX: D12.6 Benign neoplasm of colon, unspecified (principal); G47.33 Obstructive sleep apnea (adult) (pediatric); J44.9 Chronic obstructive pulmonary disease, unspecified; J96.01 Acute respiratory failure with hypoxia; Z99.81 Dependence on supplemental oxygen | CPT/HCPCS: 99202 ==

== ENCOUNTER 2024-03-13 08:49 | Outpatient (AMB) | payer MEDICARE, MEDICAID, SELFPAY ==
[2024-03-13 09:00] VITALS: BP 114/64; O2SAT 98; BMI 25.4
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
== END 2024-03-13 09:24 | disposition home or self-care (01) ==
PROVIDERS: PCP Internal Medicine; Visit Provider Hospitalist
DX: J43.2 Centrilobular emphysema (principal); R91.8 Other nonspecific abnormal finding of lung field; G47.33 Obstructive sleep apnea (adult) (pediatric); J44.9 Chronic obstructive pulmonary disease, unspecified; F17.200 Nicotine dependence, unspecified, uncomplicated
CPT/HCPCS: 99214; G2211

== ENCOUNTER → 2024-03-13 08:49 | Outpatient (BNVA) | payer MEDICARE, MEDICAID, SELFPAY | PROVIDERS: PCP Internal Medicine; Visit Provider Hospitalist | DX: J43.2 Centrilobular emphysema (principal); J44.9 Chronic obstructive pulmonary disease, unspecified; R91.8 Other nonspecific abnormal finding of lung field; G47.33 Obstructive sleep apnea (adult) (pediatric); Z99.89 Dependence on other enabling machines and devices; F17.210 Nicotine dependence, cigarettes, uncomplicated | CPT/HCPCS: 99212 ==

== ENCOUNTER 2024-04-25 12:26 | Outpatient (AMB) | payer MEDICARE, MEDICAID, SELFPAY ==
[2024-04-25 12:27] VITALS: BP 142/86; PULSE 103; TEMP 36.2; O2SAT 93; BMI 26.3
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
== END 2024-04-25 13:08 | disposition home or self-care (01) ==
PROVIDERS: PCP Internal Medicine; Visit Provider Internal Medicine
DX: F17.210 Nicotine dependence, cigarettes, uncomplicated (principal); J44.9 Chronic obstructive pulmonary disease, unspecified; G47.33 Obstructive sleep apnea (adult) (pediatric); J45.909 Unspecified asthma, uncomplicated

== ENCOUNTER → 2024-04-25 12:26 | Outpatient (BNVA) | payer MEDICARE, MEDICAID, SELFPAY | PROVIDERS: PCP Internal Medicine; Visit Provider Internal Medicine | DX: J45.909 Unspecified asthma, uncomplicated (principal); R05.9 Cough, unspecified; F17.210 Nicotine dependence, cigarettes, uncomplicated; J44.9 Chronic obstructive pulmonary disease, unspecified; G47.33 Obstructive sleep apnea (adult) (pediatric) | CPT/HCPCS: 96127; 99212 ==

== ENCOUNTER 2024-05-10 12:58 | Outpatient (AMB) | payer MEDICARE, MEDICAID, SELFPAY ==
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
[2024-05-10 13:04] VITALS: BP 129/72; PULSE 108; RESP 17; O2SAT 94; BMI 25.1
== END 2024-05-10 13:20 | disposition home or self-care (01) ==
PROVIDERS: PCP Internal Medicine; Visit Provider Anesthesiology
DX: M47.816 Spondylosis without myelopathy or radiculopathy, lumbar region (principal); G89.4 Chronic pain syndrome; M51.369 Other intervertebral disc degeneration, lumbar region without mention of lumbar back pain or lower extremity pain
CPT/HCPCS: 99214

== ENCOUNTER → 2024-05-10 12:58 | Outpatient (BNVA) | payer MEDICARE, MEDICAID, SELFPAY | PROVIDERS: PCP Internal Medicine; Visit Provider Anesthesiology | DX: M47.816 Spondylosis without myelopathy or radiculopathy, lumbar region (principal); M51.360 Other intervertebral disc degeneration, lumbar region with discogenic back pain only; G89.4 Chronic pain syndrome | CPT/HCPCS: 99212 ==

== ENCOUNTER 2024-06-23 10:25 | Day surgery (SDC) | payer MEDICARE, MEDICAID, SELFPAY ==
--- NOTE | ~2024-06-23 | FL_ITS ---
EXAMINATION: XR FLUOROSCOPY WITH IMAGES CLINICAL INFORMATION: Lumbar spine pain management procedure. COMPARISON: 04/27/2022 MR lumbar. Fluoroscopy guidance 08/13/2023, 07/21/2023. TECHNIQUE: Fluoroscopy provided to: Dr. Salguero Fluoroscopy time: 1 minutes 13 seconds DAP: 6.0187 Gycm2 Images: 4 FINDINGS: 4 spot images of the lower lumbar spine obtained during pain management procedure. Please refer to the full operative report for details. FL/FL guidance in OR IMPRESSION: Fluoroscopic guidance. Electronically signed by: Mitul Martinez MD 06/27/2024 09:02 AM [facility]
--- NOTE | 2024-06-23 10:38 | MHC.SHP ---
Pre-Procedural Eval Section A - 24 Hr Update-Section A only Date of Service: 06/23/24 The patient is an INPATIENT: No Changes since office visit: Yes Patient answered all questions The patient has been examined within 24 hours of the surgical procedure. The History & Physical has been completed within 30 days and I have reviewed it.: No Section B - Complete if H&P > 30 days Chief Complaint: Spondylosis without myelopathy or radiculopathy Details of Present Illness: as above Relevant Family History (Specify if Yes): No Relevant Social History: None Present Medications: see Short Stay Collaborative assessment Medical History: No relevant PMH History of Previous Operations: No relevant previous surgery Allergies: Allergies Allergy/AdvReac Type Severity Reaction Status Date / Time prednisone [PREDNISONE] Allergy Severe AGITATION Verified 06/23/24 10:35 doxycycline Allergy Mild Vomiting Verified 06/23/24 10:35 lactose AdvReac Unknown none Verified 06/23/24 10:35 steroids Allergy Severe shakes Uncoded 06/23/24 10:35 Review of Systems Sugical H&P ROS: Negative: Constitution, Cardiovascular, Neurological, Hem-Onc, Allergic/Immunologic, Gastrointestinal, Genitourinary, Integumentary, Endocrine and Eyes/Ears/Nose/Throat and Yes, Specify: Respiratory (COPD, O2 dependent.), Psychiatric (depression) and Musculoskeletal (DDD lumbar, spondylosis lumbar) Exam Surgical H&P Exam: Normal: HEENT, Normal: Heart, Normal: Extremities, Normal: Abdomen, Normal: Skin and Normal: Neurological and Significant Findings: Lungs (O2 2 l per min is worn by the p-t.) Plan Diagnosis/Plan: Unchanged I have reviewed the history and physical and performed a pertinent physical examination on my patient. No changes have occurred unless specified: I am going to perform bilateral L3-L4-DRL5 medial branches radiofrequency ablation under minimal sedation. Time Spent With Patient Time: Total time managing care of this patient today __5__ minutes.
[2024-06-23 10:39] VITALS: BP 130/79; PULSE 88; RESP 18; TEMP 36.1; O2SAT 99; BMI 25.2
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
[2024-06-23] MEDS: Lactated Ringers 1,000 ML 80 ML IVCONT (11:09)
[2024-06-23 12:25] VITALS: BP 178/87; PULSE 88; RESP 20; TEMP 36.6; O2SAT 92
--- NOTE | 2024-06-23 12:27 | PM.OP ---
Brief Operative Note Date of Service: 06/23/24 Pre-op diagnosis: Spondylosis lumbar without myelopathy or radiculopathy Post-op diagnosis: same Procedure: Radiofrequency ablation of medial branches L3, L4, dorsal ramus L5 bilateral. Implants: None Surgeon: Shaquille Salguero MD Anesthesia: MAC Was an Chief Data Officer used for this Procedure?: No Estimated blood loss (mL): 1 Condition: stable Disposition: PACU
--- NOTE | 2024-06-23 12:28 | W.PM.OPN ---
Operative Note Operative Note Date of Service: 06/23/24 Narrative: RFA L3-L4-DRL5 bilateral Informed consent was explained to the patient. All questions were explained and answered. The patient was taken inside the operating room where he was positioned prone on the operating table. ASA m-rs were applied and the patient was minimally to moderately sedated. Time-out was performed delineating name and of the patient,? correct site, side, the nature of the procedure, patient's allergy, preoperative antibiotic if needed. All operating room staff was participating in OR time-out procedure. The lower back was prepped with ChloraPrep and draped with sterile towels. C-arm was brought over the operating field and sq picture of L3,? L4, L5 vertebra and S1 AREA were delineated on the screen. Point of interest were delineated as connection of superior articular process of? L3, L4, L5 vertebra bilaterally with corresponding transverse processes as well as connection of the sacral alae bilaterally with superior articular process of S1 1st on the right and then on the left side. The lateral images were obtained and position of the tips of the needles away from the foramina and presumable location of the somatic nerves was verified. ?The projection of the point of interest to the skin were injected with the small amount of local anesthetic lidocaine 2% 1-1.5 cc. After that 18 gauge 100 mm RFA canulas? were driven to the point of interest in oblique fashion. After needles gently contacted the bone the motor tests were performed and no motor response was detected in the patients feet lower legs or thighs. After that? at the point of interests the cannulas? were injected with small amount of ropivacaine 0.5% mixed with lidocaine 1%-1cc?-2cc. 90 seconds after the injection the energy application was performed at 89 degrees Centigrade for 90 second. After first energy application the canullas were rotated 180 degrees and energy application was repeated at the same setting.? Upon completion of the energy applications canullas were removed and sterile bandaids? were applied, The? patient was taken outside of the operating room to recovery room .
[2024-06-23 12:30] VITALS: BP 155/85; PULSE 86; RESP 18; O2SAT 95
[2024-06-23 12:35] VITALS: BP 145/80; PULSE 85; RESP 18; O2SAT 95
[2024-06-23 12:40] VITALS: BP 141/98; BP 163/93; PULSE 81; PULSE 88; RESP 18; RESP 20; TEMP 36.9; O2SAT 95
[2024-06-23] MEDS: Acetaminophen 325 MG TABLET 975 MG PO (12:42)
== END 2024-06-23 13:12 | disposition home or self-care (01) ==
PROVIDERS: PCP Internal Medicine; Visit Provider Anesthesiology
PROC: (CPT 64635; principal; 2024-06-23 12:10)
DX: M47.816 Spondylosis without myelopathy or radiculopathy, lumbar region (principal); G89.4 Chronic pain syndrome; M51.369 Other intervertebral disc degeneration, lumbar region without mention of lumbar back pain or lower extremity pain; J44.9 Chronic obstructive pulmonary disease, unspecified; G47.33 Obstructive sleep apnea (adult) (pediatric); Z79.51 Long term (current) use of inhaled steroids; Z99.81 Dependence on supplemental oxygen; Z79.899 Other long term (current) drug therapy; Z99.89 Dependence on other enabling machines and devices; Z88.1 Allergy status to other antibiotic agents; Z88.8 Allergy status to other drugs, medicaments and biological substances; Z87.891 Personal history of nicotine dependence
CPT/HCPCS: 64635; 64636 ×2; J2003; J2250; J2704; J2795; J3010; J3301

== ENCOUNTER → 2024-06-23 10:25 | Outpatient (BNV) | payer MEDICARE, MEDICAID, SELFPAY | PROVIDERS: PCP Internal Medicine; Visit Provider Anesthesiology | DX: M47.816 Spondylosis without myelopathy or radiculopathy, lumbar region (principal) | CPT/HCPCS: 64635; 64636 ==

== ENCOUNTER 2024-07-03 08:14 | Inpatient (IN) | payer MEDICARE, MEDICAID, SELFPAY ==
[2024-07-03] VITALS (12 sets, daily range): BP systolic 94–137; BP diastolic 53–77; PULSE 79–125; RESP 14–22; TEMP 36.2–36.7; O2SAT 93–98; BMI 24.7
--- NOTE | ~2024-07-03 | CT_ITS ---
EXAMINATION: CT ABDOMEN PELVIS WITHOUT IV CONTRAST HISTORY: LLQ pain, bloody stool COMPARISON: There are no prior studies for comparison. TECHNIQUE: CT scan of the abdomen and pelvis was performed without contrast using standard departmental protocol. Coronal and sagittal reformatted images were generated and reviewed. Oral contrast material was not administered at the request of the referring physician. This CT exam was performed with one or more of the following dose reduction techniques: automated exposure control, adjustment of the mA and/or kV according to patient size, use of iterative reconstruction technique. DLP: 435 mGy-cm FINDINGS: LOWER CHEST: The visualized lung bases are clear. There is no pleural effusion. CARDIOVASCULATURE: The heart is normal in size. There is no pericardial effusion. LIVER: The liver is normal in size and contour. The liver has an unremarkable unenhanced appearance. GALLBLADDER / BILE DUCTS: The gallbladder is unremarkable. There is no intra or extrahepatic biliary ductal dilatation. SPLEEN: The spleen is normal in size and has an unremarkable unenhanced appearance. PANCREAS: The pancreas has an unremarkable unenhanced appearance. ADRENAL GLANDS: Unremarkable. KIDNEYS/RETROPERITONEUM: No renal calculi are identified. There is no hydronephrosis. LYMPH NODES: No retroperitoneal lymphadenopathy is identified in the abdomen or pelvis. VASCULATURE: The abdominal aorta demonstrates atherosclerotic calcification, but is normal in caliber. MESENTERY/PERITONEUM: No free fluid. No masses. There is no free intraperitoneal gas. STOMACH: The stomach is collapsed, limiting evaluation. SMALL BOWEL: The small bowel is normal in caliber. COLON: There is moderate wall thickening of the distal transverse and descending colon. There is mild pericolonic inflammatory stranding consistent with colitis. There is no adjacent extraluminal gas or loculated fluid collection. APPENDIX: The appendix is not seen, however no inflammatory changes are seen adjacent to the cecum. URINARY BLADDER/PELVIC ORGANS: The urinary bladder is collapsed, limiting evaluation. The uterus and ovaries have an unremarkable unenhanced appearance. BONES / SOFT TISSUES: No suspicious bony or soft tissue abnormalities. CT/CT abdomen pelvis wo IV con IMPRESSION: Findings consistent with colitis involving the distal transverse and descending colon. Electronically signed by: Jim Staley MD 07/03/2024 11:21 AM EST RP
[2024-07-03] MEDS: Ondansetron ODT 4 MG TAB.RAPDIS TRANSLINGU (08:35)
[2024-07-03 08:47] LABS: MANUAL DIFF FLAG NO
[2024-07-03 08:49] LABS: Basophils Percent Auto 0.4 % (0-2); Eosinophils Absolute Auto 0.1 X10*3/uL (0.0-0.4); Eosinophils Percent Auto 0.4 % (0-4); Hematocrit 41.8 % (37.0-47.0); Hemoglobin 14.2 g/dl (12.0-16.0); Imm Gran Abs Auto 0.04 X10*3/uL (0.00-0.03); Imm Gran Pct Auto 0.4 % (0.0-0.4); Lymphocytes Absolute Auto 1.2 X10*3/uL (1.2-4.9); Lymphocytes Percent Auto 10.7 % (20-40); Mean Corpuscular Hemoglobin 33.9 pg (27.0-33.0); Mean Corpuscular Volume 99.8 fL (80.0-98.0); Mean Platelet Volume 9.5 fL (9.4-12.3); Monocytes Absolute Auto 0.8 X10*3/uL (0.1-1.2); Monocytes Percent Auto 7.3 % (2-11); Neutrophils Absolute Auto 9.1 x10*3/uL (2.0-8.3); Neutrophils Percent Auto 80.8 % (45-73); Platelet Count 320 X10*3/uL (160-400); Red Blood Count 4.19 X10*6/uL (4.20-5.50); Red Cell Distribution Width 14.7 % (11.0-16.0); White Blood Count 11.3 X10*3/uL (4.8-10.8)
[2024-07-03 09:02] LABS: Anion Gap 16 (12-20); Blood Urea Nitrogen 14 mg/dL (9-16); Calcium 9.4 mg/dL (8.4-10.2); Carbon Dioxide 26 mmol/L (22-29); Chloride 107 mmol/L (96-108); Creatinine Clr Calc Pharmacy 33.8; Estimated Glomerular Filt Rate 30; Glucose Random 139 mg/dL (60-115); Potassium 4.3 mmol/L (3.3-5.1); Sodium 145 mmol/L (135-145)
[2024-07-03 09:36] LABS: Influenza A PCR NEGATIVE (Negative); Influenza B PCR NEGATIVE (Negative); Resp Syncy Virus RNA Qual PCR NEGATIVE (Negative); SARS COV2 PCR INHOUSE NEGATIVE (Negative)
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
--- NOTE | 2024-07-03 09:59 | ECG_ITS ---
Test Reason : tachycardia Blood Pressure : */* mmHG Vent. Rate : 90 BPM Atrial Rate : 90 BPM P-R Int : 146 ms QRS Dur : 84 ms QT Int : 378 ms P-R-T Axes : 65 52 68 degrees QTcB Int : 462 ms Normal sinus rhythm Normal ECG When compared with ECG of 22-Feb-2023 15:10, No significant change was found Referred By: Gisell Reddy Electronically Signed By: SAMANTHA CANCINO MD
[2024-07-03 10:38] LABS: Alanine Aminotransferase 16 U/L (0-31); Albumin Level 4.4 g/dL (3.5-5.0); Alkaline Phosphatase 104 U/L (39-117); Aspartate Amino Transferase 26 U/L (5-31); Bilirubin Direct 0.2 mg/dL (0.0-0.5); Bilirubin Total 0.4 mg/dL (0.0-1.0); C Reactive Protein 3.05 mg/dL (< or = 0.50); Lipase 14 U/L (8-78); Total Protein 7.3 g/dL (6.5-8.0)
[2024-07-03 10:42] LABS: Troponin-I High Sensitivity 5.1 ng/L (<3.5-17.0)
[2024-07-03 10:46] LABS: Lactic Acid 0.8 mmol/L (0.5-2.0)
--- OUTSIDE RECORDS SUMMARY | 2024-07-03 10:46 | XMS_ITS | Clinical Summary ---
Author Organization [facility] Address [address] [place] [address] Care Team Providers Care Cap Parts Cutter Name Role Phone Miller Villalpando MD Primary Care Provider [phone] Surgical History Surgery Date Site/Laterality Comments OTHER SURGICAL HISTORY PROCEDURE: ---- OTHER ----; COMMENT: right upper apex lung lobe removed APPENDECTOMY PROCEDURE: HISTORICAL APPENDECTOMY COLONOSCOPY 03/15/2014 [facility] PROCEDURE: HISTORICAL COLONOSCOPY; COMMENT: Two 8-10 mm adenomas; repeat in 3 yrs OTHER SURGICAL HISTORY 03/05/2014 PROCEDURE: DC ESOPHAGOSCOPY FLEXIBLE TRANSORAL DIAGNOSTIC; COMMENT: small HH; normal esophagus, stomach and duodenum OTHER SURGICAL HISTORY 06/18/2017 PROCEDURE: ---- OTHER ----; COMMENT: 5th metatarsal osteotomy with screw fixation and arthroplasty, fifth toe right foot with K wire fixation COLONOSCOPY 09/09/2017 PROCEDURE: HISTORICAL COLONOSCOPY; COMMENT: One 8 mm polyp in the cecum, four 4 to 9 mm polyps in the transverse colon, one 5 mm polyp in the transverse colon. Repeat colonoscopy in 3 years, with pathology results, high-fiber diet COLONOSCOPY W/ POLYPECTOMY 09/09/2017 PROCEDURE: DC COLSC FLX W/RMVL OF TUMOR POLYP LESION SNARE TQ; COMMENT: 12 small polyps, all adenomas; hemorrhoids. Repeat in 3 years under propofol OTHER SURGICAL HISTORY PROCEDURE: IMPLANT BREAST SILICONE/EQ TUBAL LIGATION PROCEDURE: HISTORICAL TUBAL LIGATION OTHER SURGICAL HISTORY PROCEDURE: DC REMOVAL OF LUNG PNEUMONECTOMY Medical History Medical History Date Comments Asthma 09/22/2016 DX:Asthma COPD (chronic obstructive pu lmonary disease) (CMS/HCC) 09/22/2016 DX:COPD (chronic obstructive pulmonary disease) (HCC) Chronic bronchitis (CMS/HCC) 09/22/2016 DX: Chronic bronchitis (HCC) Bronchiectasis (CMS/HCC) 09/22/2016 DX:Bron chiectasis (HCC) Mitral valve prolapse 09/22/2016 DX:Mitral valve prolapse Restless leg syndrome 09/22/2016 DX:Restles s leg syndrome; COMMENT: Sees neurologist (Dr Nancy Donato) Migraine 09/22/2016 DX:Migraine Anxiety 09/22/2016 DX:Anxiety History of panic attacks 09/22/2016 DX:Hist ory of panic attacks HSV infection 09/22/2016 DX:HSV infection GERD (gastroesophageal reflux disease) 09/22/2016 DX:GERD (gastroesophageal reflux disease) IBS (irritable bowel syndrome) 09/22/2016 D X:IBS (irritable bowel syndrome) HTN (hypertension) 11/04/2016 DX:HTN (hyper tension) NATASHA on CPAP 09/22/2016 DX:NATASHA on CPAP; COMMENT: Uses CPAP every night Atypical squamous cell henson es of undetermined significance (ASCUS) on cervical cytology with positive high risk human papilloma virus (HPV) 11/04/2016 DX:Atypical squamous cell changes of undetermined significance (ASCUS) on cervical cytology with positive high risk human papilloma virus (HPV); COMMENT: 03/07/2014 C and G neg. Colposcopy 04/18/2014 Depression 11/04/2016 DX:Depression History of abnormal cervical Pap smear 11/04/2016 DX:History of abnormal cervical Pap smear; COMMENT: 03/07/2014 Atypical squamous cell changes ASCUS, positive high risk HPV. Allergic rhinitis 11/04/2016 DX:Allergic rh initis; COMMENT: 03/07/2014 C and G neg. Colposcopy 04/18/2014 Seizure (CMS/HCC) 09/22/2016 DX:Seizure (HC C); COMMENT: Patient states that EEG is normal but given gabapentin by neurologist. Last seizure was on May 2016 x 3. 05/15/2016: Seizure likely multifactoral including dehydration and drug withdrawal so likely provoked. Advised continue Gabapentin, keep well hydrated, avoid recreational drugs (pt had been using marijuana and cocaine earlier that day.) f/u w/ neuro as directed. Osteoporosis 11/04/2016 DX:Osteoporosis; COMMENT: Bone density 03/2015 Family History Medical History Relation Name Comments Hypertension Father CA Colon, colon polyps, depression, anxiety, HTN, hyperlipidemia, cataracts Colon cancer Maternal Grandmother Colon polyps Mother asthma, hyperli pidemia, depression-hx of SI Colon polyps Sister Breast cancer Neg Hx Relation Name Status Comments Father Alive Maternal Grandmother Mother Alive Sister Social History Tobacco Use Types Packs/Day Years Used Date Smoking Tobacco: Every Day Cigarettes Smokeless Tobacco: Never Alcohol Use Standard Drinks/Week Comments Yes 0 (1 standard drink = 0.6 oz pur e alcohol) Comments Unknown Sex and Gender Information Value Date Recorded Sex Assigned at Not on file Legal Sex Female 11:32 PM EST Gender Identity Not on file Sexual Orientation Not on file Obstetrics History Plan of Treatment Health Maintenance Due Date Last Done Comments Pneumococcal Vaccine: 50+ Years (2 of 2 - PPSV23) 05/07/2015 03/12/2015 Pneumococcal Vaccine: Pediatrics (0 to 5 Years) and At-Risk Patients (6 to 64 Years) (2 of 2 - PPSV23) 05/07/2015 03/12/2015 Zoster Vaccines (2 of 2) 09/05/2017 07/11/2017 Breast Cancer Screening 04/01/2022 04/01/20 20, 03/25/2020, 02/14/2020, Additional history exists Colorectal Cancer Screening: Colonoscopy 04/11/2022 Depression Screening 04/11/2022 HIV Screening 04/11/2022 Hepatitis C Screening 04/11/2022 Osteoporosis Screening (Bone Density Screening) 04/11/2022 Social Influencers of Health Screening 04/11/2022 Cervical Cancer Screening: Pap Smear 05/21/2023 05/21/2020 COVID-19 Vaccine ( season) 2024 Influenza Vaccine (#1) 2024 02/02/2020, 2015 DTaP,Tdap,and Td Vaccines (2 - Td or Tdap) 04/01/2027 04/01/2017 Hepatitis B Vaccines Completed 10/18/2017, 05/18/2017, 04/01/2017 HIB Vaccines Aged Out No longer eligi ble based on patient's age to complete this topic HPV Vaccines Aged Out No longer eligi ble based on patient's age to complete this topic Hepatitis A Vaccines Aged Out No long er eligible based on patient's age to complete this topic IPV Vaccines Aged Out No longer eligi ble based on patient's age to complete this topic MMR Vaccines Aged Out No longer eligi ble based on patient's age to complete this topic Meningococcal ACWY Vaccine Aged Out N o longer eligible based on patient's age to complete this topic Meningococcal B Vacine Aged Out No lo nger eligible based on patient's age to complete this topic RSV Immunization Patients Under 20 months Aged Out No longer eligible based on patient's age to complete this topic Varicella Vaccines Aged Out No longer eligible based on patient's age to complete this topic Procedures Procedure Name Priority Date/Time Associated Diagnosis Comments PAP SMEAR Routine 05/21/2020 DX MAMMO INCL CAD UNI Routine 04/01/2020 1:59 PM EST Other abnormal and inconclusive findings on diagnostic imaging of breast from Last 3 Months or Most Recently Relevant to Health Maintenance Results * Pap smear (05/21/2020) 05/21/2020 Narrative HISTORICAL TESTING LAB RESULTING AGENCY - 05/28/2020 10:55 AM EST [id number] THINPREP PAP, IMAGED: NEGATIVE FOR SQUAMOUS INTRAEPITHELIAL LESION AND MALIGNANCY . REACTIVE CELLULAR CHANGES. SHENA LAZARO , YUSRA(ASCP) (CASE SCREENED 05 23 2020) JASE VAZQUEZ M.D. , PATHOLOGIST (CASE ELECTRONICALLY SIGNED 05 27 2020) RESULT OF APTIMA HIGH RISK HPV ASSAY: HIGH RISK HPV: ??NEGATIVE (SEROTYPES 16,18,31,33,35,39,45,51,52,56,58,59,66,68) COMPLETED ON 2020-05-22 ADEQUACY: SATISFACTORY ENDOCERVICAL/TRANSFORMATION ZONE COMPONENT ABSENT. SOURCE: THINPREP PAP HPV ANY DX: ??REFLEX 16 AND 18, CERVICAL, IMAGED CLINICAL INFORMATION: HPV ANY DIAGNOSIS. POSTMENOPAUSE, PAP HX NEG [Z12.4] Cheri Gaxiola DO LAB CYTOLOGY ORDERABLES Final Result HISTORICAL TESTING LAB RESULTING AGENCY * DX MAMMO INCL CAD UNI (04/01/2020 1:59 PM EST) Anatomical Region Laterality Modality Mammography 03/27/2020 3:15 PM EST Narrative 04/01/2020 2:30 PM EST This is a summary report. The complete report is available in the patient's medical record. If you cannot access the medical record, please contact the sending organization for a detailed fax or copy. Please refer to the combined ultrasound-guided core biopsy and diagnostic mammogram report. Procedure Note Hedy Soto MD - 04/21/2022 This is a summary report. The complete report is available in thepatient's medical record. If you cannot access the medical record, pleasecontact the sending organization for a detailed fax or copy. Please refer to the combined ultrasound-guided core biopsy and diagnosticmammogram report. us Celio Marmolejo MD IMG BI PROCEDURES Final R esult from Last 3 Months or Most Recently Relevant to Health Maintenance Care Teams Cap Parts Cutter Relationship Specialty Start Date End Date Miller Villalpando MD [address] [place] [address] PCP - General Internal Medicine 10/14/20
--- OUTSIDE RECORDS SUMMARY | 2024-07-03 10:46 | XMS_ITS | Encounter Summary ---
Author Organization [facility] Address [address] [place] [address] Care Team Providers Care Filling Carrier Name Role Phone Celio Marmolejo MD Primary Care Provider [phone] Miller Villalpando Primary Care Provider Unavailabl e Encounter Details Date Type Department Care Team Description 07/30/2017 Orders Only Podiatry - [address] [address] Ghulam Byrd DPM Social History Tobacco Use Types Packs/Day Years Used Date Smoking Tobacco: Former Cigarettes 1 Smokeless Tobacco: Never Comments:Quit x one month ag o Alcohol Use Standard Drinks/Week Comments Yes 0 (1 standard drink = 0.6 oz pur e alcohol) rarely Sex Assigned at Date Recorded Not on file documented as of this encounter Plan of Treatment Not on file documented as of this encounter Visit Diagnoses Not on filedocumented in this encounter Care Teams Filling Carrier Relationship Specialty Start Date End Date Celio Marmolejo MD [address] [place], [place] [id number] PCP - General Internal Medicine 08/31/16 10/13/20 Miller Villalpando [address] [place] [address] PCP - General Internal Medicine 10/14/20 documented as of this encounter
--- OUTSIDE RECORDS SUMMARY | 2024-07-03 10:46 | XMS_ITS | Encounter Summary ---
Author Organization [facility] Address [address] [place] [address] Care Team Providers Care Fisher Purse Seine Name Role Phone Celio Marmolejo MD Primary Care Provider [phone] [phone] Miller Villalpando Primary Care Provider Unavailabl e Encounter Details Date Type Department Care Team Description 12/21/2019 Mechanical Assembler Report Medical Records [address] [place] [address] Adali Lantigua MD Social History Tobacco Use Types Packs/Day Years Used Date Smoking Tobacco: Some Days Cigarettes 1 Smokeless Tobacco: Never Comments:3-4 cigarettes a da y Alcohol Use Standard Drinks/Week Comments Yes 0 (1 standard drink = 0.6 oz pur e alcohol) rarely Sex Assigned at Date Recorded Not on file documented as of this encounter Plan of Treatment Not on file documented as of this encounter Visit Diagnoses Not on filedocumented in this encounter Care Teams Fisher Purse Seine Relationship Specialty Start Date End Date Celio Marmolejo MD [address] [place] [address] PCP - General Internal Medicine 08/31/16 10/13/20 Miller Villalpando [address] [place] [address] PCP - General Internal Medicine 10/14/20 documented as of this encounter
--- OUTSIDE RECORDS SUMMARY | 2024-07-03 10:46 | XMS_ITS | Encounter Summary ---
Author Organization [facility] Address [address] [place] [address] Care Team Providers Care Reforestation Worker Name Role Phone Celio Marmolejo MD Primary Care Provider [phone] Miller Villalpando Primary Care Provider Unavailabl e Encounter Details Date Type Department Care Team Description 11/17/2017 Orders Only Podiatry - [address] [address] Ghulam Byrd DPM Other chronic osteomyelitis of right foot (HCC) (Primary Dx) Social History Tobacco Use Types Packs/Day Years Used Date Smoking Tobacco: Former Cigarettes 1 Q uit: 10/14/2017 Smokeless Tobacco: Never Alcohol Use Standard Drinks/Week Comments Yes 0 (1 standard drink = 0.6 oz pur e alcohol) rarely Sex Assigned at Date Recorded Not on file documented as of this encounter Plan of Treatment Not on file documented as of this encounter Results * X-RAY EXAM OF FOOT, COMPLETE (3 VIEWS) (11/17/2017 2:41 PM EDT) 11/17/2017 2:54 PM EDT Narrative [facility] OTHER EXTERNAL - 11/17/2017 2:56 PM EDT Right foot, 3 views. History follow-up on osteomyelitis of the fetus metatarsal bone. Comparison this prior studies, latest from 10/06/2017. Again noted are post operative changes in the distal fifth metatarsal bone. There is interval decrease of the soft tissue swelling. There is stable irregularity of the outer contour of the fetus metatarsal head. CONCLUSIONS: Interval decrease in the soft tissue swelling. Otherwise no significant interval change. Procedure Note Estefania Mariscal MD - 11/17/2017 Right foot, 3 views. History follow-up on osteomyelitis of the fetus metatarsal bone. Comparison this prior studies, latest from 10/06/2017. Again noted are post operative changes in the distal fifth metatarsalbone. There is interval decrease of the soft tissue swelling. There is stable irregularity of theouter contour of the fetus metatarsal head. CONCLUSIONS: Interval decrease in the soft tissue swelling. Otherwise nosignificant interval change. Ghulam Byrd DPM RADIOLOGY Performing Organization Address [facility] de Phone Number SAGAR MONSON OTHER EXTERNAL * RBC SEDIMENTATION RATE, NON-AUTO (11/17/2017 2:27 PM EDT) Pathologist [facility] ESR 20 0 - 30 mm/hr 11/17/2017 7:21 PM EDT [facility] 11/17/2017 2:27 PM EDT 11/17/2017 2:27 PM EDT Ghulam Byrd DPM LAB Performing Organization Address [facility] de Phone Number [place] [phone] [facility] * C-REACTIVE PROTEIN HIGH SENSITIVITY (11/17/2017 2:27 PM EDT) Pathologist [facility] CARDIO CRP- HIGH SENSITIVE 16.4 mg/L 11/17/2017 8:13 PM EDT [employer] Comment: Cardio CRP Relative Risk Categories Low ? <1.0 mg/L Average ?? 1.0 - 3.0 mg/L High ?>3.0 mg/L Levels >10.0 should be ignored and repeated when the patient is stable and infection or inflammation is ruled out. HRT (estrogens) consistently increase cardio CRP levels. Risk estimates for women on HRT may need to be calibrated downward. 11/17/2017 2:27 PM EDT 11/17/2017 2:27 PM EDT Ghulam Byrd DPM LAB Performing Organization Address [facility] de Phone Number [employer] * (ABNORMAL) CBC (AUTO DIFF PLATELET) (11/17/2017 2:27 PM EDT) WBC 5.4 4.8 - 10.8 x10-3 11/17/2017 5:56 PM EDT [facility] RBC 3.9 3.8 - 4.8 x10-6 11/17/2017 5:56 PM EDT [facility] HGB 12.7 11.5 - 16.0 g/dl 11/17/2017 5:56 PM EDT [facility] HCT 39.0 35 - 47 % 11/17/2017 5:56 PM EDT [facility] MCV 101.0(H) 79 - 98 fl 11/17/2017 5:56 PM EDT [facility] MCH 32.9(H) 27 - 32 pg 11/17/2017 5:56 PM EDT [facility] MCHC 32.6 32 - 37 g/dl 11/17/2017 5:56 PM EDT [facility] RDW 14.8 11 - 15 % 11/17/2017 5:56 PM EDT [facility] PLT COUNT 446(H) 130 - 400 x10-3 11/17/2017 5:56 PM EDT [facility] MEAN PLATELET VOLUME 9.9 7 - 11 fl 11/17/2017 5:56 PM EDT [facility] NEUT % 56.2 41 - 85 % 11/17/2017 5:56 PM EDT [facility] LYMPH % 30.7 15 - 48 % 11/17/2017 5:56 PM EDT [facility] MONO % 11.2 0 - 12 % 11/17/2017 5:56 PM EDT [facility] EOS % 1.5 0 - 5 % 11/17/2017 5:56 PM EDT [facility] BASO % 0.4 0 - 2 % 11/17/2017 5:56 PM EDT [facility] 11/17/2017 2:27 PM EDT 11/17/2017 2:27 PM EDT Ghulam Byrd DPM LAB Performing Organization Address City/State/[facility] Co de Phone Number [facility] [address] [facility] documented in this encounter Visit Diagnoses Diagnosis Other chronic osteomyelitis of right foot (HCC)- Primary Other chronic osteomyelitis of right foot (HCC) documented in this encounter Care Teams Reforestation Worker Relationship Specialty Start Date End Date Celio Marmolejo MD [address] [place] [id number] PCP - General Internal Medicine 08/31/16 10/13/20 Miller Villalpando [address] [place] [address] PCP - General Internal Medicine 10/14/20 documented as of this encounter
--- OUTSIDE RECORDS SUMMARY | 2024-07-03 10:46 | XMS_ITS | Encounter Summary ---
Author Organization [facility] Address [address] [place] [address] Care Team Providers Care Reach Lift Truck Driver Name Role Phone Celio Marmolejo MD Primary Care Provider [phone] Miller Villalpando Primary Care Provider Unavailabl e Reason for Visit * Reason Comments E-prescribe Rx Request Encounter Details Date Type Department Care Team Description 11/28/2017 Refill Pulmonology - [address] [place] [address] Diego Hartley MD E-prescribe Rx Request Social History Tobacco Use Types Packs/Day Years Used Date Smoking Tobacco: Former Cigarettes 1 Q uit: 10/14/2017 Smokeless Tobacco: Never Alcohol Use Standard Drinks/Week Comments Yes 0 (1 standard drink = 0.6 oz pur e alcohol) rarely Sex Assigned at Date Recorded Not on file documented as of this encounter Miscellaneous Notes * Telephone Encounter - Radha Garcia - 11/29/2017 8:52 AM EDT Patient would like script to be: E-PRESCRIBED/FAXED TO PHARMACY WHEN WAS THE PATIENT'S LAST APPOINTMENT WITH THE PRESCRIBING PROVIDER? 11/25/17 Does patient have an upcoming appointment? Yes (THE MEDICATION REQUESTED IS ON THE MED LIST ABOVE) All of the medications requested were on the CURRENT MEDS list Did you check the Pharmacy information above?: YES Patient wants: 90 -day supply Is this a mail order prescription request ? NO Patients current [place] is: [place] / Product Type: MEDICARE [id number] * Telephone Encounter - Niurka Mullen - 11/29/2017 8:51 AM EDT Patient would like script to be: E-PRESCRIBED/FAXED TO PHARMACY WHEN WAS THE PATIENT'S LAST APPOINTMENT WITH THE PRESCRIBING PROVIDER? 11/01/2017 Does patient have an upcoming appointment? Yes 12/10/2017 (THE MEDICATION REQUESTED IS ON THE MED LIST ABOVE) All of the medications requested were on the CURRENT MEDS list Did you check the Pharmacy information above?: YES Patient wants: 30 -day supply Is this a mail order prescription request ? NO Patients current insurance carrier is: [place] / [place] / Product Type: MEDICARE [id number] documented in this encounter Plan of Treatment Not on file documented as of this encounter Visit Diagnoses Diagnosis Chronic obstructive pulmonary disease, unspecified COPD type (HCC) documented in this encounter Care Teams Reach Lift Truck Driver Relationship Specialty Start Date End Date Celio Marmolejo MD [address] [place] [address] PCP - General Internal Medicine 08/31/16 10/13/20 Miller Villalpando [address] [place] [address] PCP - General Internal Medicine 10/14/20 documented as of this encounter
--- OUTSIDE RECORDS SUMMARY | 2024-07-03 10:46 | XMS_ITS | Encounter Summary ---
Author Organization [facility] Address [address] [place] [address] Care Team Providers Care Spanish Linguist Name Role Phone Celio Marmolejo MD Primary Care Provider [phone] Miller Villalpando Primary Care Provider Unavailabl e Reason for Visit * Reason Onset Date Comments Gynecological Problem 05/27/2020 Encounter Details Date Type Department Care Team Description 05/27/2020 Telephone OBGYN - [address] [address] Cheri Quesada DO Gynecological Problem Social History Tobacco Use Types Packs/Day Years Used Date Smoking Tobacco: Some Days Cigarettes 1 Smokeless Tobacco: Never Comments:3-4 cigarettes a da y Alcohol Use Standard Drinks/Week Comments Yes 0 (1 standard drink = 0.6 oz pur e alcohol) rarely Sex Assigned at Date Recorded Not on file COVID-19 Exposure Response Date Recorded In the last month, have you been in contact with someone who was confirmed or suspected to have Coronavirus / COVID-19? No / Unsure 05/21/2020 1:37 PM EST documented as of this encounter Miscellaneous Notes * Telephone Encounter - Letitia Westbrook R.N. - 05/27/2020 10:49 AM EST FYI to , see message below. States does not need genetic referral now. * Telephone Encounter - Arely Joya - 05/27/2020 9:48 AM EST Chief Complaint/problem: Patient calling today to let dr quesada know she does not refferal to genetics as her mother tested negative for the gene How long has the patient had this problem? Pt???s TEST CENTER ADMINISTRATOR provider: Cheri Quesada, DO Last menstrual period (LMP) or EDC (due date): N/A documented in this encounter Plan of Treatment Not on file documented as of this encounter Visit Diagnoses Not on filedocumented in this encounter Care Teams Spanish Linguist Relationship Specialty Start Date End Date Celio Marmolejo MD [address] [place] [address] PCP - General Internal Medicine 08/31/16 10/13/20 Miller Villalpando [address] [place] [address] PCP - General Internal Medicine 10/14/20 documented as of this encounter
--- OUTSIDE RECORDS SUMMARY | 2024-07-03 10:46 | XMS_ITS | Encounter Summary ---
Author Organization [facility] Address [address] [place] [address] Care Team Providers Care Medical Intern Name Role Phone Celio Marmolejo MD Primary Care Provider [phone] [phone] Miller Villalpando Primary Care Provider Unavailabl e Encounter Details Date Type Department Care Team Description 05/23/2020 Veneer Press Operator Report Medical Records [address] [place] [id number] Diego Hartley MD Social History Tobacco Use Types Packs/Day [...] PM EST documented as of this encounter Plan of Treatment Not on file documented as of this encounter Visit Diagnoses Not on filedocumented in this encounter Care Teams Medical Intern Relationship Specialty Start Date End Date Celio Marmolejo MD [address] [place] [address] PCP - General Internal Medicine 08/31/16 10/13/20 Miller Villalpando [address] [place] [address] PCP - General Internal Medicine 10/14/20 documented as of this encounter
--- OUTSIDE RECORDS SUMMARY | 2024-07-03 10:46 | XMS_ITS | Encounter Summary ---
Author Organization [facility] Address [address] [place] [address] Care Team Providers Care Care Associate Name Role Phone Celio Marmolejo MD Primary Care Provider [phone] Miller Villalpando Primary Care Provider Unavailabl e Encounter Details Date Type Department Care Team Description 09/14/2017 Orders Only Pulmonology - [address] [place] [address] Mary Ann Ratliff NP Social History Tobacco Use Types Packs/Day Years [...] on filedocumented in this encounter Care Teams Care Associate Relationship Specialty Start Date End Date Celio Marmolejo MD [address] [place] [address] PCP - General Internal Medicine 08/31/16 10/13/20 Miller Villalpando [address] [place] [address] PCP - General Internal Medicine 10/14/20 documented as of this encounter
--- OUTSIDE RECORDS SUMMARY | 2024-07-03 10:46 | XMS_ITS | Encounter Summary ---
Author Organization [facility] Address [address] [place] [address] Care Team Providers Care Typing Secretary Name Role Phone Celio Marmolejo MD Primary Care Provider [phone] Miller Villalpando Primary Care Provider Unavailabl e Encounter Details Date Type Department Care Team Description 08/16/2017 [facility] Medical Records [address] [place] [address] Abstract, Provider Social History Tobacco Use Types Packs/Day Years [...] on filedocumented in this encounter Care Teams Typing Secretary Relationship Specialty Start Date End Date Celio Marmolejo MD [address] [place] [address] PCP - General Internal Medicine 08/31/16 10/13/20 Miller Villalpando [address] [place] [address] PCP - General Internal Medicine 10/14/20 documented as of this encounter
--- OUTSIDE RECORDS SUMMARY | 2024-07-03 10:46 | XMS_ITS | Encounter Summary ---
Author Organization [facility]ly [facility] Address [address] [place] [address] Care Team Providers Care Package Wrapper Name Role Phone Celio Marmolejo MD Primary Care Provider +1 -[phone] Miller Villalpando Primary Care Provider Unavailabl e Encounter Details Date Type Department Care Team Description 06/18/2017 Hospital Medical Records [address] [place] [address] Ghulam Byrd, DPM Social History Tobacco Use Types Packs/Day Years Used Date Smoking Tobacco: Every Day Cigarettes 1 Smokeless Tobacco: Never Comments:1-2 cigarettes spenser y Alcohol Use Standard Drinks/Week Comments Yes 0 (1 standard drink = 0.6 oz pur e alcohol) rarely Sex Assigned at Date Recorded Not on file documented as of this encounter Plan of Treatment Not on file documented as of this encounter Visit Diagnoses Not on filedocumented in this encounter Care Teams Package Wrapper Relationship Specialty Start Date End Date Celio Marmolejo MD [address] [place], [place] [id number] PCP - General Internal Medicine 08/31/16 10/13/20 Miller Villalpando [address] [place] [address] PCP - General Internal Medicine 10/14/20 documented as of this encounter
--- OUTSIDE RECORDS SUMMARY | 2024-07-03 10:46 | XMS_ITS | Encounter Summary ---
Author Organization [facility] Address [address] [place] [address] Care Team Providers Care Associate Name Role Phone Celio Marmolejo MD Primary Care Provider +1 -[phone] Miller Villalpando Primary Care Provider Unavailabl e Encounter Details Date Type Department Care Team Description 09/22/2016 Release of Information Medical Records [address] [place] [address] Abstract, Provider Social History Tobacco Use Types Packs/Day Years Used Date Smoking Tobacco: Every Day Cigarettes 1 Smokeless Tobacco: Never Comments:4-5 cigs a day for 35 years but quit multiple times Alcohol Use Standard Drinks/Week Comments Yes 0 (1 standard drink = 0.6 oz pur e alcohol) rarely Sex Assigned at Date Recorded Not on file documented as of this encounter Plan of Treatment Not on file documented as of this encounter Visit Diagnoses Not on filedocumented in this encounter Care Teams Associate Relationship Specialty Start Date End Date Celio Marmolejo MD [address] [place], [place] [id number] PCP - General Internal Medicine 08/31/16 10/13/20 Miller Villalpando [address] [place] [address] PCP - General Internal Medicine 10/14/20 documented as of this encounter
--- OUTSIDE RECORDS SUMMARY | 2024-07-03 10:46 | XMS_ITS | Encounter Summary ---
Author Organization [facility] Address [address] [place] [address] Care Team Providers Care Director Of Content Marketing Name Role Phone Celio Marmolejo MD Primary Care Provider +1 -[phone] Miller Villalpando Primary Care Provider Unavailabl e Reason for Visit * Reason Onset Date Comments Provider Call Back 08/30/2017 Encounter Details Date Type Department Care Team Description 08/30/2017 Telephone Podiatry - [place] [address] [place] [address] Ghulam Byrd DPM Provider Call Back Social History Tobacco Use Types Packs/Day Years Used Date Smoking Tobacco: Former Cigarettes 1 Smokeless Tobacco: Never Comments:Quit x one month ag o Alcohol Use Standard Drinks/Week Comments Yes 0 (1 standard drink = 0.6 oz pur e alcohol) rarely Sex Assigned at Date Recorded Not on file documented as of this encounter Miscellaneous Notes * Telephone Encounter - Ghulam Byrd DPM - 09/03/2017 2:13 PM EDT Spoke with patient on the telephone today September 03, 2017 and discussed results of Her MRI * Telephone Encounter - Gayal Liz L.P.N. - 09/01/2017 3:10 PM EDT Routed to Dr Byrd * Telephone Encounter - Adriana Felder - 08/30/2017 4:05 PM EDT Caller requesting call back from provider: Is the caller the patient? YES If caller is not the patient, what is the callers name? N/A Callers relationship to patient? N/A If person calling is not the patient themselves, is there a verbal release in FYI or permanent comments for this person: NO Reason for call back: Patient called regarding mri results Caller offered to speak with the nurse for assistance: YES Response: Patient offered to speak with nurse for assistance and patient agreed. Message forwarded to nurse. documented in this encounter Plan of Treatment Not on file documented as of this encounter Visit Diagnoses Not on filedocumented in this encounter Care Teams Director Of Content Marketing Relationship Specialty Start Date End Date Celio Marmolejo MD [address] [place] [address] PCP - General Internal Medicine 08/31/16 10/13/20 Miller Villalpando [address] [place] [address] PCP - General Internal Medicine 10/14/20 documented as of this encounter
--- OUTSIDE RECORDS SUMMARY | 2024-07-03 10:46 | XMS_ITS | Encounter Summary ---
Author Organization [facility] Address [address] [place] [address] Care Team Providers Care Heading And Priming Tool Setter Name Role Phone Celio Marmolejo MD Primary Care Provider +1 -[phone] Miller Villalpando Primary Care Provider Unavailabl e Encounter Details Date Type Department Care Team Description 06/18/2017 Hospital Medical Records [address] [place] [address] Ghulam Byrd, DPM Social History Tobacco Use [...] on filedocumented in this encounter Care Teams Heading And Priming Tool Setter Relationship Specialty Start Date End Date Celio Marmolejo MD [address] [place], [place] [phone] PCP - General Internal Medicine 08/31/16 10/13/20 Miller Villalpando [address] [place] [address] PCP - General Internal Medicine 10/14/20 documented as of this encounter
--- OUTSIDE RECORDS SUMMARY | 2024-07-03 10:46 | XMS_ITS | Encounter Summary ---
Author Organization [facility] Address [address] [place] [address] Care Team Providers Care Senior Producer Name Role Phone Celio Marmolejo MD Primary Care Provider +1 -[phone] Miller Villalpando Primary Care Provider Unavailabl e Encounter Details Date Type Department Care Team Description 11/08/2019 Migratory Game Bird Biologist Report Medical Records [address] [place] [address] Abstract, Provider Social History Tobacco Use Types [...] on filedocumented in this encounter Care Teams Senior Producer Relationship Specialty Start Date End Date Celio Marmolejo MD [address] [place] [address] PCP - General Internal Medicine 08/31/16 10/13/20 Miller Villalpando [address] [place] [address] PCP - General Internal Medicine 10/14/20 documented as of this encounter
--- OUTSIDE RECORDS SUMMARY | 2024-07-03 10:46 | XMS_ITS | Encounter Summary ---
Author Organization [facility] Address [address] [place] [address] Care Team Providers Care Car Stereo Installer Name Role Phone Celio Marmolejo MD Primary Care Provider +1 -[phone] Miller Villalpando Primary Care Provider Unavailabl e Encounter Details Date Type Department Care Team Description 08/15/2019 Resident Inspector Report Medical Records [address] [place] [address] Diego Hartley MD Social History Tobacco Use [...] on filedocumented in this encounter Care Teams Car Stereo Installer Relationship Specialty Start Date End Date Celio Marmolejo MD [address] [place] [address] PCP - General Internal Medicine 08/31/16 10/13/20 Miller Villalpando [address] [place] [address] PCP - General Internal Medicine 10/14/20 documented as of this encounter
--- OUTSIDE RECORDS SUMMARY | 2024-07-03 10:46 | XMS_ITS | Encounter Summary ---
Author Organization [facility] Address [address] [place] [address] Care Team Providers Care Metal Expediter Name Role Phone Celio Marmolejo MD Primary Care Provider +1 -[phone] Miller Villalpando Primary Care Provider Unavailabl e Encounter Details Date Type Department Care Team Description 10/05/2019 Program Paraprofessional Report Medical Records [address] [place] [address] Diego Hartley MD Social History Tobacco Use [...] on filedocumented in this encounter Care Teams Metal Expediter Relationship Specialty Start Date End Date Celio Marmolejo MD [address] [place] [address] PCP - General Internal Medicine 08/31/16 10/13/20 Miller Villalpando [address] [place] [address] PCP - General Internal Medicine 10/14/20 documented as of this encounter
--- OUTSIDE RECORDS SUMMARY | 2024-07-03 10:46 | XMS_ITS | Encounter Summary ---
Author Organization [facility] Address [address] [place] [address] Care Team Providers Care Telephone Quotation Clerk Name Role Phone Celio Marmolejo MD Primary Care Provider +1 -[phone] Miller Villalpando Primary Care Provider Unavailabl e Encounter Details Date Type Department Care Team Description 04/18/2014 Hospital Medical Records [address] [place] [address] Alisia Ordonez MD Social History Tobacco Use Types Packs/Day [...] on filedocumented in this encounter Care Teams Telephone Quotation Clerk Relationship Specialty Start Date End Date Celio Marmolejo MD [address] [place], [place] [phone] PCP - General Internal Medicine 08/31/16 10/13/20 Miller Villalpando [address] [place] [address] PCP - General Internal Medicine 10/14/20 documented as of this encounter
--- OUTSIDE RECORDS SUMMARY | 2024-07-03 10:46 | XMS_ITS | Encounter Summary ---
Author Organization [facility] Address [address] [place] [address] Care Team Providers Care Engineering Mathematician Name Role Phone Celio Marmolejo MD Primary Care Provider +1 -[phone] Miller Villalpando Primary Care Provider Unavailabl e Encounter Details Date Type Department Care Team Description 04/25/2020 Telephone Adult Medicine [address] [address] Celio Marmolejo MD [address] [place] [address] Social History Tobacco Use Types Packs/Day Years [...] have Coronavirus / COVID-19? No / Unsure 04/01/2020 12:42 PM EST documented as of this encounter Plan of Treatment Not on file documented as of this encounter Visit Diagnoses Not on filedocumented in this encounter Care Teams Engineering Mathematician Relationship Specialty Start Date End Date Celio Marmolejo MD [address] [place] [address] PCP - General Internal Medicine 08/31/16 10/13/20 Miller Villalpando [address] [place] [address] PCP - General Internal Medicine 10/14/20 documented as of this encounter
--- OUTSIDE RECORDS SUMMARY | 2024-07-03 10:46 | XMS_ITS | Encounter Summary ---
Author Organization [facility] Address [address] [place] [address] Care Team Providers Care Information Technology Program Manager Name Role Phone Celio Marmolejo MD Primary Care Provider +1 -[phone] Miller Villalpando Primary Care Provider Unavailabl e Reason for Visit * Reason Onset Date Comments refill request 08/23/2019 Encounter Details Date Type Department Care Team Description 08/23/2019 Refill Adult Medicine - [address] [address] Celio Marmolejo MD [address] [place] [address] refill request Social History Tobacco Use Types Packs/Day Years Used Date Smoking Tobacco: Some Days Cigarettes 1 Smokeless Tobacco: Never Comments:3-4 cigarettes a da y Alcohol Use Standard Drinks/Week Comments Yes 0 (1 standard drink = 0.6 oz pur e alcohol) rarely Sex Assigned at Date Recorded Not on file documented as of this encounter Miscellaneous Notes * Telephone Encounter - Estefania Mayes M.A. - 08/23/2019 4:07 PM EDT Last seen 05/17/19, next appt 11/14/19. Lab Results Component Value Date NA 138 05/17/2019 K 4.1 05/17/2019 CO2 29 05/17/2019 CL 105 05/17/2019 BUN 12 05/17/2019 CREAT 1.12 05/17/2019 GLU 82 05/17/2019 CA 9.5 05/17/2019 GFR 51 05/17/2019 * Telephone Encounter - Ivan Alvarez - 08/23/2019 4:02 PM EDT Patient would like script to be: E-PRESCRIBED/FAXED TO PHARMACY WHEN WAS THE PATIENT'S LAST APPOINTMENT IN ADULT MEDICINE? [id number] WHEN WAS THE LAST TIME THE PATIENT SAW THEIR PCP? Same as above Does patient have an upcoming appointment? Yes [id number] (THE MEDICATION REQUESTED IS ON THE MED LIST ABOVE) All of the medications requested were on the CURRENT MEDS list Did you check the Pharmacy information above?: YES Patient wants: 90 -day supply Is this a mail order prescription request ? NO If the refill is from a FAXED refill request what is the RX # listed on the fax? [phone] Patients current insurance carrier is: [place] / [place] / Product Type: MEDICARE [id number] documented in this encounter Plan of Treatment Not on file documented as of this encounter Visit Diagnoses Not on filedocumented in this encounter Care Teams Information Technology Program Manager Relationship Specialty Start Date End Date Celio Marmolejo MD [address] [place] [address] PCP - General Internal Medicine 08/31/16 10/13/20 Miller Villalpando [address] [place] [address] PCP - General Internal Medicine 10/14/20 documented as of this encounter
--- OUTSIDE RECORDS SUMMARY | 2024-07-03 10:46 | XMS_ITS | Encounter Summary ---
Author Organization [facility] Address [address] [place] [address] Care Team Providers Care Linesperson Name Role Phone Celio Marmolejo MD Primary Care Provider +1 -[phone] Miller Villalpando Primary Care Provider Unavailabl e Encounter Details Date Type Department Care Team Description 07/16/2020 Analytical Engineer Report Medical Records [address] [place] [address] Adali Lantigua MD Social History Tobacco Use [...] on filedocumented in this encounter Care Teams Linesperson Relationship Specialty Start Date End Date Celio Marmolejo MD [address] [place], [place] [phone] PCP - General Internal Medicine 08/31/16 10/13/20 Miller Villalpando [address] [place] [address] PCP - General Internal Medicine 10/14/20 documented as of this encounter
--- OUTSIDE RECORDS SUMMARY | 2024-07-03 10:46 | XMS_ITS | Encounter Summary ---
Author Organization [facility] Address [address] [place] [address] Care Team Providers Care Supervisor Lathing Name Role Phone Celio Marmolejo MD Primary Care Provider +1 -[phone] Miller Villalpando Primary Care Provider Unavailabl e Reason for Referral * EXTERNAL (Priority) - Authorized/Booked Specialty Diagnoses / Procedures Referred By Contjennifer t Referred To Contact Infectious Disease Procedures REFERRAL TO INFECTIOUS DISEASE Ghulam Byrd DPM [address] [place] [address] Referral ID Status Reason Start Date Expiration Date V isits Requested Visits Authorized SEE NOTE Authorized/B ooked 09/03/2017 12/07/2017 1 1 Encounter Details Date Type Department Care Team Description 09/03/2017 Orders Only Podiatry - [address] [address] Ghulam Byrd DPM Social History Tobacco Use [...] on filedocumented in this encounter Care Teams Supervisor Lathing Relationship Specialty Start Date End Date Celio Marmolejo MD [address] [place] [address] PCP - General Internal Medicine 08/31/16 10/13/20 Miller Villalpando [address] [place] [address] PCP - General Internal Medicine 10/14/20 documented as of this encounter
--- OUTSIDE RECORDS SUMMARY | 2024-07-03 10:46 | XMS_ITS | Encounter Summary ---
Author Organization [facility] Address [address] [place] [address] Care Team Providers Care Salesforce Business Analyst Name Role Phone Celio Marmolejo MD Primary Care Provider +1 -[phone] Miller Villalpando Primary Care Provider Unavailabl e Reason for Visit * Reason Comments E-prescribe Rx Request Encounter Details Date Type Department Care Team Description 12/03/2017 Refill Pulmonology - [facility] [address] [facility] [address] [place] [address] Dylon Dotson MD [address] [place] [address] E-prescribe Rx Request Social History Tobacco Use Types Packs/Day Years Used Date Smoking Tobacco: Former Cigarettes 1 Q uit: 10/14/2017 Smokeless Tobacco: Never Alcohol Use Standard Drinks/Week Comments Yes 0 (1 standard drink = 0.6 oz pur e alcohol) rarely Sex Assigned at Date Recorded Not on file documented as of this encounter Miscellaneous Notes * Telephone Encounter - Radha Garcia - 12/03/2017 3:05 PM EDT Patient would like script to be: E-PRESCRIBED/FAXED TO PHARMACY WHEN WAS THE PATIENT'S LAST APPOINTMENT WITH THE PRESCRIBING PROVIDER? 11/01/17 Does patient have an upcoming appointment? Yes (THE MEDICATION REQUESTED IS ON THE MED LIST ABOVE) All of the medications requested were on the CURRENT MEDS list Did you check the Pharmacy information above?: YES Patient wants: 90 -day supply Is this a mail order prescription request ? NO Patients current insurance carrier is: Payor: MEDICARE-[place] Care Years / [place] / Product Type: MEDICARE [id number] documented in this encounter Plan of Treatment Not on file documented as of this encounter Visit Diagnoses Diagnosis Chronic obstructive pulmonary disease, unspecified COPD type (HCC) documented in this encounter Care Teams Salesforce Business Analyst Relationship Specialty Start Date End Date Celio Marmolejo MD [address] [place] [address] PCP - General Internal Medicine 08/31/16 10/13/20 Miller Villalpando [address] [place] [address] PCP - General Internal Medicine 10/14/20 documented as of this encounter
--- OUTSIDE RECORDS SUMMARY | 2024-07-03 10:46 | XMS_ITS | Encounter Summary ---
Author Organization [facility] Address [address] [place] [address] Care Team Providers Care Thickener Operator Name Role Phone Celio Marmolejo MD Primary Care Provider +1 -[phone] Miller Villalpando Primary Care Provider Unavailabl e Encounter Details Date Type Department Care Team Description 06/22/2019 Manager Restaurant Report Medical Records [address] [place] [address] Diego Hartley MD Social History Tobacco Use [...] on filedocumented in this encounter Care Teams Thickener Operator Relationship Specialty Start Date End Date Celio Marmolejo MD [address] [place] [address] PCP - General Internal Medicine 08/31/16 10/13/20 Miller Villalpando [address] [place] [address] PCP - General Internal Medicine 10/14/20 documented as of this encounter
--- OUTSIDE RECORDS SUMMARY | 2024-07-03 10:46 | XMS_ITS | Encounter Summary ---
Author Organization [facility] Address [address] [place] [address] Care Team Providers Care Food And Drink Factory Workers Name Role Phone Celio Marmolejo MD Primary Care Provider +1 -[phone] Miller Villalpando Primary Care Provider Unavailabl e Reason for Visit * Reason Comments E-prescribe Rx Request Encounter Details Date Type Department Care Team Description 08/29/2019 Refill Adult Medicine [address] [address] Didi Raymundo CNM E-prescribe Rx Request Social History Tobacco Use Types Packs/Day Years Used Date Smoking Tobacco: Some Days Cigarettes 1 Smokeless Tobacco: Never Comments:3-4 cigarettes a da y Alcohol Use Standard Drinks/Week Comments Yes 0 (1 standard drink = 0.6 oz pur e alcohol) rarely Sex Assigned at Date Recorded Not on file documented as of this encounter Miscellaneous Notes * Telephone Encounter - Brianda Alvarez - 09/06/2019 3:03 PM EDT WHEN WAS THE PATIENTS LAST ANNUAL PUMP RUNNER EXAM? 05/24/18 Does patient have an upcoming appointment? No LEFT MESSAGE TO RESCHEDULE ANNUAL EXAM - CX'D DUE TO COVID 19 (THE MEDICATION REQUESTED IS ON THE MED LIST ABOVE) Did you check the Pharmacy information above?: YES Indicate how soon the patient needs the script: BY THE END OF THE DAY Patient would like script to be: E-PRESCRIBED/FAXED TO PHARMACY Is the doctor here today?: NO Can the message wait until the doctor returns?: YES Has the patient been told that the prescription will not be filled until the end of the day? NO [place] / [place] / Product Type: MEDICARE [id number] documented in this encounter Plan of Treatment Not on file documented as of this encounter Visit Diagnoses Not on filedocumented in this encounter Care Teams Food And Drink Factory Workers Relationship Specialty Start Date End Date Celio Marmoeljo MD [address] [place] [address] PCP - General Internal Medicine 08/31/16 10/13/20 Miller Villalpando [address] [place] [address] PCP - General Internal Medicine 10/14/20 documented as of this encounter
--- OUTSIDE RECORDS SUMMARY | 2024-07-03 10:46 | XMS_ITS | Encounter Summary ---
Author Organization [facility] Address [address] [place] [address] Care Team Providers Care Recreation Supervisor Name Role Phone Celio Marmolejo MD Primary Care Provider +1 -[phone] iMller Villalpando Primary Care Provider Unavailabl e Reason for Visit * Reason Onset Date Comments Provider Call Back 11/16/2017 Encounter Details Date Type Department Care Team Description 11/16/2017 Telephone Pulmonology - [address] [place] [address] Diego Hartley MD Provider Call Back Social History Tobacco Use Types Packs/Day Years Used Date Smoking Tobacco: Former Cigarettes 1 Q uit: 10/14/2017 Smokeless Tobacco: Never Alcohol Use Standard Drinks/Week Comments Yes 0 (1 standard drink = 0.6 oz pur e alcohol) rarely Sex Assigned at Date Recorded Not on file documented as of this encounter Miscellaneous Notes * Telephone Encounter - Diego Hartley MD - 11/17/2017 3:34 PM EDT Ok I will send her Nystatin s+S * Telephone Encounter - Yvonne Miranda M.A. - 11/17/2017 3:12 PM EDT Spoke to pt she said she cant come in she doesn't have a ride,she knows she has trush she has it before and her sister is a nurse and confirmed it. * Telephone Encounter - Yvonne Miranda M.A. - 11/17/2017 9:02 AM EDT Called pt,lmom to call office for appt. * Telephone Encounter - Diego Hartley MD - 11/16/2017 5:09 PM EDT Ok, 11am ? * Telephone Encounter - Yvonne Miranda M.A. - 11/16/2017 2:01 PM EDT Forward to do you want her to come in. * Telephone Encounter - Marlin Camejo - 11/16/2017 1:12 PM EDT Caller requesting call back from provider: Is the caller the patient? YES If caller is not the patient, what is the callers name? N/A Callers relationship to patient? N/A If person calling is not the patient themselves, is there a verbal release in FYI or permanent comments for this person: Reason for call back: Patient thinks she has trush. Please call Caller offered to speak with the nurse for assistance: YES Response: Patient offered to speak with nurse for assistance and patient agreed. Message forwarded to nurse. documented in this encounter Plan of Treatment Not on file documented as of this encounter Visit Diagnoses Not on filedocumented in this encounter Care Teams Recreation Supervisor Relationship Specialty Start Date End Date Celio Marmolejo MD [address] [place] [address] PCP - General Internal Medicine 08/31/16 10/13/20 Miller Villalpando [address] [place] [address] PCP - General Internal Medicine 10/14/20 documented as of this encounter
--- OUTSIDE RECORDS SUMMARY | 2024-07-03 10:47 | XMS_ITS | Encounter Summary ---
Author Organization [facility] Address [address] [place] [address] Care Team Providers Care Lunchroom Monitor Name Role Phone Celio Marmolejo MD Primary Care Provider +1 [phone] Miller Villalpando Primary Care Provider Unavailabl e Encounter Details Date Type Department Care Team Description 10/05/2017 Orders Only Podiatry - [place] [address] [place] [address] Ghulam Byrd DPM Osteomyelitis of right foot, unspecified type (HCC) (Primary Dx) Social History Tobacco Use [...] documented as of this encounter Results * C-REACTIVE PROTEIN (10/08/2017 2:17 PM EDT) Pathologist [facility] CRP 0.27 0.08 - 0.80 mg/dL 10/08/2017 5:11 PM EDT [facility] 10/08/2017 2:17 PM EDT 10/08/2017 2:17 PM EDT Ghulam Byrd DPM LAB [facility] [address] [facility] * RBC SEDIMENTATION RATE, NON-AUTO (10/08/2017 2:17 PM EDT) Pathologist [facility] ESR 2 0 - 30 mm/hr 10/08/2017 6:56 PM EDT [facility] 10/08/2017 2:17 PM EDT 10/08/2017 2:17 PM EDT Ghulam FERRAROM LAB Performing Organization Address [facility] Co de Phone Number [address] * CREATININE, BLOOD ASSAY (10/08/2017 2:17 PM EDT) CREAT 1.0 0.7 - 1.5 mg/dL 10/08/2017 5:11 PM EDT [facility] GFR > 60 >60 10/08/2017 5:11 PM T [facility] Comment: If patient is -German, multiply result by 1.21 Chronic Kidney Disease: < 60 ml/min/1.73 square meters Kidney Failure: < 15 ml/min/1.73 square meters 10/08/2017 2:17 PM EDT 10/08/2017 2:17 PM EDT Ghulam FERRAROM LAB Performing Organization Address [facility] Phone Number [address] * (ABNORMAL) CBC (AUTO DIFF PLATELET) (10/08/2017 2:17 PM EDT) WBC 7.0 4.8 - 10.8 x10-3 10/08/2017 4:19 PM EDT [facility] RBC 4.4 3.8 - 4.8 x10-6 10/08/2017 4:19 PM EDT [facility] HGB 14.5 11.5 - 16.0 g/dl 10/08/2017 4:19 PM EDT [facility] HCT 44.1 35 - 47 % 10/08/2017 4:19 PM EDT [facility] MCV 99.8(H) 79 - 98 fl 10/08/2017 4:19 PM EDT [facility] MCH 32.8(H) 27 - 32 pg 10/08/2017 4:19 PM EDT [facility] MCHC 32.9 32 - 37 g/dl 10/08/2017 4:19 PM EDT [facility] RDW 13.8 11 - 15 % 10/08/2017 4:19 PM EDT [facility] PLT COUNT 313 130 - 400 x10-3 10/08/2017 4:19 PM EDT [facility] MEAN PLATELET VOLUME 9.8 7 - 11 fl 10/08/2017 4:19 PM EDT [facility] NEUT % 59.1 41 - 85 % 10/08/2017 4:19 PM EDT [facility] LYMPH % 30.1 15 - 48 % 10/08/2017 4:19 PM EDT [facility] MONO % 8.1 0 - 12 % 10/08/2017 4:19 PM EDT [facility] EOS % 2.0 0 - 5 % 10/08/2017 4:19 PM EDT [facility] BASO % 0.7 0 - 2 % 10/08/2017 4:19 PM EDT [facility] 10/08/2017 2:17 PM EDT 10/08/2017 2:17 PM EDT Ghulam Byrd DPM LAB Performing Organization Address City/State/[facility] Co de Phone Number [facility] [address] [facility] * X-RAY EXAM OF FOOT, COMPLETE (3 VIEWS) (10/06/2017 3:05 PM EDT) 10/06/2017 5:27 PM EDT Impressions [facility] - 10/06/2017 5:31 PM EDT IMPRESSION: Question osteomyelitis with loss of cortical definition lateral aspect fifth metatarsal head. Narrative [facility] - 10/06/2017 5:31 PM EDT Right foot series: HISTORY: Question osteomyelitis fifth metatarsal bone 3 views compared with 06/23/2017 and 08/11/2017. Postsurgical changes are noted in the fifth metatarsal bone with 2 cortical screws. Postsurgical changes fifth proximal phalanx at PIP joint. Question mild irregularity of the lateral lateral cortical margin of the fifth metatarsal head raising question of osteomyelitis. Procedure Note Tyrese Velez MD - 10/06/2017 Right foot series: HISTORY: Question osteomyelitis fifth metatarsal bone 3 views compared with 06/23/2017 and 08/11/2017. Postsurgical changes arenoted in the fifth metatarsal bone with 2 cortical screws. Postsurgical changes fifthproximal phalanx at PIP joint. Question mild irregularity of the lateral lateral cortical marginof the fifth metatarsal head raising question of osteomyelitis. IMPRESSION IMPRESSION: Question osteomyelitis with loss of cortical definitionlateral aspect fifth metatarsal head. Ghulam Byrd DPM RADIOLOGY [facility] OTHER EXTERNAL documented in this encounter Visit Diagnoses Diagnosis Osteomyelitis of right foot, unspecified type (HCC)- Primary documented in this encounter Care Teams Lunchroom Monitor Relationship Specialty Start Date End Date Celio Marmolejo MD [address] [place] [address] PCP - General Internal Medicine 08/31/16 10/13/20 Miller Villalpando [address] [place] [address] PCP - General Internal Medicine 10/14/20 documented as of this encounter
--- OUTSIDE RECORDS SUMMARY | 2024-07-03 10:47 | XMS_ITS | Encounter Summary ---
Author Organization [facility] Address [address] [place] [address] Care Team Providers Care Methodologist Name Role Phone Celio Marmolejo MD Primary Care Provider [phone] [phone] Miller Villalpando Primary Care Provider Unavailabl e Encounter Details Date Type Department Care Team Description 01/11/2018 Release of Information Medical Records [address] [place] [id number] Abstract, Provider Social History Tobacco Use Types [...] on filedocumented in this encounter Care Teams Methodologist Relationship Specialty Start Date End Date Celio Marmolejo MD [address] [place] [address] PCP - General Internal Medicine 08/31/16 10/13/20 Miller Villalpando [address] [place] [address] PCP - General Internal Medicine 10/14/20 documented as of this encounter
--- OUTSIDE RECORDS SUMMARY | 2024-07-03 10:47 | XMS_ITS | Encounter Summary ---
Author Organization [facility] Address [address] [place] [address] Care Team Providers Care Front Desk Specialist Name Role Phone Celio Marmolejo MD Primary Care Provider [phone] [phone] Miller Villalpando Primary Care Provider Unavailabl e Reason for Visit * Reason Onset Date Comments Faxed Order 10/01/2017 Encounter Details Date Type Department Care Team Description 10/01/2017 Telephone Podiatry - [place] [address] [place] [address] Ghulam Byrd DPM Faxed Order Social History Tobacco Use Types Packs/Day Years Used Date Smoking Tobacco: Former Cigarettes 1 Smokeless Tobacco: Never Comments:Quit x one month ag o Alcohol Use Standard Drinks/Week Comments Yes 0 (1 standard drink = 0.6 oz pur e alcohol) rarely Sex Assigned at Date Recorded Not on file documented as of this encounter Miscellaneous Notes * Telephone Encounter - Ghulam Byrd DPM - 10/05/2017 1:28 PM EDT X-rays and lab work ordered. I had had already spoke with this patient last Wednesday on the telephonefrom my [place] office * Telephone Encounter - Gayla Liz L.P.N. - 10/04/2017 2:19 PM EDT Message routed to Dr Byrd * Telephone Encounter - Adriana Felder - 10/01/2017 11:27 AM EDT Caller requesting call back from provider: Is the caller the patient? YES If caller is not the patient, what is the callers name? N/A Callers relationship to patient? N/A If person calling is not the patient themselves, is there a verbal release in FYI or permanent comments for this person: NO Reason for call back: Pt wanted inform Dr Byrd that she was seen at [facility]. They suggested to have a new xray of her foot. Pt requesting new order planner offered to speak with the nurse for assistance: YES Response: Patient offered to speak with nurse for assistance and patient agreed. Message forwarded to nurse. documented in this encounter Plan of Treatment Not on file documented as of this encounter Visit Diagnoses Not on filedocumented in this encounter Care Teams Front Desk Specialist Relationship Specialty Start Date End Date Celio Marmolejo MD [address] [place] [address] PCP - General Internal Medicine 08/31/16 10/13/20 Miller Villalpando [address] [place] [address] PCP - General Internal Medicine 10/14/20 documented as of this encounter
--- OUTSIDE RECORDS SUMMARY | 2024-07-03 10:47 | XMS_ITS | Encounter Summary ---
Author Organization [facility] Address [address] [place] [address] Care Team Providers Care Operations Executive Name Role Phone Miller Villalpando Primary Care Provider Unavailabl e Reason for Visit * Reason Onset Date Comments Transfer Records 09/17/2021 Encounter Details Date Type Department Care Team Description 09/17/2021 Telephone OBGYN - [facility] [address] [place], [place] [id number] Cheri Gaxiola, Transfer Records Social History Tobacco Use Types Packs/Day Years Used Date Smoking Tobacco: Every Day Cigarettes 1 Smokeless Tobacco: Never Comments:1-2 cigarettes spenser y Alcohol Use Standard Drinks/Week Comments Yes 0 (1 standard drink = 0.6 oz pur e alcohol) rarely Sex Assigned at Date Recorded Not on file documented as of this encounter Miscellaneous Notes * Telephone Encounter - Jen Ramirez - 09/17/2021 11:46 AM EDT Release of information received by fax from [facility] Requesting Entire medical recordto be faxed to [phone]. Passed to records documented in this encounter Plan of Treatment Not on file documented as of this encounter Visit Diagnoses Not on filedocumented in this encounter Care Teams Operations Executive Relationship Specialty Start Date End Date Miller Villalpando PCP - General Internal Medicine 10/14/20 documented as of this encounter
--- OUTSIDE RECORDS SUMMARY | 2024-07-03 10:47 | XMS_ITS | Encounter Summary ---
Author Organization [facility] Address [address] [place] [address] Care Team Providers Care Staff Weapons Officer Name Role Phone Celio Marmolejo MD Primary Care Provider +1 -[phone] Miller Villalpando Primary Care Provider Unavailabl e Reason for Visit * Reason Onset Date Comments TEST RESULTS 11/28/2018 Encounter Details Date Type Department Care Team Description 11/28/2018 Telephone Medicine/Pediatrics - [address] [id number] Pia Molina PA-C TEST RESULTS Social History Tobacco Use Types Packs/Day Years Used Date Smoking Tobacco: Some Days Cigarettes 1 Smokeless Tobacco: Never Alcohol Use Standard Drinks/Week Comments Yes 0 (1 standard drink = 0.6 oz pur e alcohol) rarely Sex Assigned at Date Recorded Not on file documented as of this encounter Miscellaneous Notes * Telephone Encounter - Geneva Underwood R.N. - 11/28/2018 12:50 PM EDT Left message to call [phone] * Telephone Encounter - Pia Molina PA-C - 11/28/2018 12:10 PM EDT Please call the patient and her her know that the bacteria is resistant to the abx I gave her for her UTI. Stop macrobid. Sent bactrim to pharmacy instead. Thank you documented in this encounter Plan of Treatment Not on file documented as of this encounter Visit Diagnoses Not on filedocumented in this encounter Care Teams Staff Weapons Officer Relationship Specialty Start Date End Date Celio Marmolejo MD [address] [place] [address] PCP - General Internal Medicine 08/31/16 10/13/20 Miller Villalpando [address] [place] [address] PCP - General Internal Medicine 10/14/20 documented as of this encounter
--- OUTSIDE RECORDS SUMMARY | 2024-07-03 10:47 | XMS_ITS | Encounter Summary ---
Author Organization [facility] Address [address] [place] [address] Care Team Providers Care Laborer Shellfish Processing Name Role Phone Celio Marmolejo MD Primary Care Provider +1 -[phone] Miller Villalpando Primary Care Provider Unavailabl e Reason for Visit * Reason Comments E-prescribe Rx Request Encounter Details Date Type Department Care Team Description 05/21/2017 Refill Pulmonology - [address] [place] [address] Mary Ann Ratliff NP E-prescribe Rx Request Social History Tobacco Use Types Packs/Day Years Used Date Smoking Tobacco: Former Cigarettes 1 Smokeless Tobacco: Never Comments:Quit x one month ag o Alcohol Use Standard Drinks/Week Comments Yes 0 (1 standard drink = 0.6 oz pur e alcohol) rarely Sex Assigned at Date Recorded Not on file documented as of this encounter Miscellaneous Notes * Telephone Encounter - Mary Ann Ratliff NP - 05/21/2017 12:22 PM EST This is a patient of Dr. Hartley She was seen by him in Apr. Please send to Dr. Hartley Thank you * Telephone Encounter - Gisell Mcclain M.A. - 05/21/2017 9:20 AM EST Sent to mary ann for auth last notes printed documented in this encounter Plan of Treatment Not on file documented as of this encounter Visit Diagnoses Not on filedocumented in this encounter Care Teams Laborer Shellfish Processing Relationship Specialty Start Date End Date Celio Marmolejo MD [address] [place] [address] PCP - General Internal Medicine 08/31/16 10/13/20 Miller Villalpando [address] [place] [address] PCP - General Internal Medicine 10/14/20 documented as of this encounter
--- OUTSIDE RECORDS SUMMARY | 2024-07-03 10:47 | XMS_ITS | Encounter Summary ---
Author Organization [facility] Address [address] [place] [address] Care Team Providers Care Director Call Center Sales Name Role Phone Celio Marmolejo MD Primary Care Provider [phone] -[phone] Miller Villalpando Primary Care Provider Unavailabl e Reason for Visit * Reason Comments E-prescribe Rx Request Encounter Details Date Type Department Care Team Description 09/01/2020 Refill Adult Medicine - [address] [phone] Celio Marmolejo MD [address] [place] [address] E-prescribe Rx Request Social History Tobacco Use Types Packs/Day Years Used Date Smoking Tobacco: Every Day Cigarettes 1 Smokeless Tobacco: Never Comments:3-4 cigarettes a da y Alcohol Use Standard Drinks/Week Comments Yes 0 (1 standard drink = 0.6 oz pur e alcohol) rarely Sex Assigned at Date Recorded Not on file documented as of this encounter Miscellaneous Notes * Telephone Encounter - Estefanía Humphries M.A. - 09/02/2020 4:43 PM EDT Date of last office visit was 07/25/20. Pended appt for 01/01/21 Lab Results Component Value Date NA 140 07/25/2020 K 4.4 07/25/2020 CO2 29 07/25/2020 CL 104 07/25/2020 BUN 7 07/25/2020 CREAT 0.90 07/25/2020 GLU 94 07/25/2020 CA 9.6 07/25/2020 GFR > 60 07/25/2020 * Telephone Encounter - Sarah Cristina - 09/02/2020 12:14 PM EDT Patient would like script to be: E-PRESCRIBED/FAXED TO PHARMACY WHEN WAS THE PATIENT'S LAST APPOINTMENT IN ADULT MEDICINE? 07/25/20 WHEN WAS THE LAST TIME THE PATIENT SAW THEIR PCP? Same as above Does patient have an upcoming appointment? Yes 01/01/21 (THE MEDICATION REQUESTED IS ON THE MED LIST ABOVE) All of the medications requested were on the CURRENT MEDS list Did you check the Pharmacy information above?: YES Patient wants: 30 -day supply Is this a mail order prescription request ? NO If the refill is from a FAXED refill request what is the RX # listed on the fax? N/A Patients current insurance carrier is: Payor: [employer] - MEDICARE / Plan: MEDICARE FFS $5 [place] [id number] / Product Type: MEDICARE [id number] Insurance ID #: [id number] documented in this encounter Plan of Treatment Not on file documented as of this encounter Visit Diagnoses Not on filedocumented in this encounter Care Teams Director Call Center Sales Relationship Specialty Start Date End Date Celio Marmolejo MD [address] [place] [address] PCP - General Internal Medicine 08/31/16 10/13/20 Miller Villalpando [address] [place] [address] PCP - General Internal Medicine 10/14/20 documented as of this encounter
--- OUTSIDE RECORDS SUMMARY | 2024-07-03 10:47 | XMS_ITS | Encounter Summary ---
Author Organization [facility] Address [address] [place] [address] Care Team Providers Care Manager Transportation Name Role Phone Celio Marmolejo MD Primary Care Provider +1 -[phone] Miller Villalpando Primary Care Provider Unavailabl e Encounter Details Date Type Department Care Team Description 03/29/2017 Business Doc Medical Records [address] [place] [id number] Abstract, Provider Social History Tobacco Use Types [...] on filedocumented in this encounter Care Teams Manager Transportation Relationship Specialty Start Date End Date Celio Marmolejo MD [address] [place], [place] [id number] PCP - General Internal Medicine 08/31/16 10/13/20 Miller Villalpando [address] [place] [address] PCP - General Internal Medicine 10/14/20 documented as of this encounter
--- OUTSIDE RECORDS SUMMARY | 2024-07-03 10:47 | XMS_ITS | Encounter Summary ---
Author Organization [facility] Address [address] [place] [address] Care Team Providers Care Machine Clerical Verifier Name Role Phone Celio Marmolejo MD Primary Care Provider +1 -[phone] Miller Villalpando Primary Care Provider Unavailabl e Encounter Details Date Type Department Care Team Description 12/08/2016 Hot Wire Glass Tube Cutter Report Medical Records [address] [place] [address] Diego Hartley MD Social History Tobacco Use [...] on filedocumented in this encounter Care Teams Machine Clerical Verifier Relationship Specialty Start Date End Date Celio Marmolejo MD [address] [place] [address] PCP - General Internal Medicine 08/31/16 10/13/20 Miller Villalpando [address] [place] [address] PCP - General Internal Medicine 10/14/20 documented as of this encounter
--- OUTSIDE RECORDS SUMMARY | 2024-07-03 10:47 | XMS_ITS | Encounter Summary ---
Author Organization [facility] Address [address] [place] [address] Care Team Providers Care Outsole Flexer Name Role Phone Celio Marmolejo MD Primary Care Provider +1 -[phone] Miller Villalpando Primary Care Provider Unavailabl e Encounter Details Date Type Department Care Team Description 01/13/2018 Orders Only Podiatry - [place] [address] [place] [address] Ghualm Byrd DPM Other chronic osteomyelitis of right foot (HCC) (Primary Dx); Right foot pain Social History Tobacco Use Types Packs/Day Years [...] of this encounter Results * C-REACTIVE PROTEIN (01/18/2018 1:35 PM EDT) CRP 0.34 0.08 - 0.80 mg/dL 01/18/2018 3:30 PM EDT [facility] 01/18/2018 1:35 PM EDT 01/18/2018 1:35 PM EDT Ghulam Byrd DPM LAB [place] [address] [place] [address] * RBC SEDIMENTATION RATE, NON-AUTO (01/18/2018 1:35 PM EDT) ESR 10 0 - 30 mm/hr 01/18/2018 3:08 PM EDT [facility] 01/18/2018 1:35 PM EDT 01/18/2018 1:35 PM EDT Ghulam Byrd DPM LAB [facility] [address] [facility] * X-RAY EXAM OF FOOT, COMPLETE (3 VIEWS) (01/18/2018 1:30 PM EDT) 01/18/2018 1:31 PM EDT Narrative [facility] EX[facility] - 01/18/2018 1:35 PM EDT Right foot, 3 views. History follow-up examination. Comparison with previous studies, latest from 11/17/2017. There is persistent soft tissue swelling over the fifth metatarsophalangeal joint. There is erosion of the lateral aspect of the fifth metatarsal head. There are stable post operative changes in the PIP joint of the fifth toe. 2 surgical screws are stable in position within the distal aspect of the fifth metatarsal bone. CONCLUSIONS: Persistent soft tissue swelling. Erosion of the lateral aspect of the fifth metatarsal head. Post operative changes. Possibility of of osteomyelitis is not excluded. Procedure Note Estefania Mariscal MD - 01/18/2018 Right foot, 3 views. History follow-up examination. Comparison with previous studies, latest from 11/17/2017. There is persistent soft tissue swelling over the fifthmetatarsophalangeal joint. There is erosion of the lateral aspect of the fifth metatarsal head. There arestable post operative changes in the PIP joint of the fifth toe. 2 surgical screws are stable inposition within the distal aspect of the fifth metatarsal bone. CONCLUSIONS: Persistent soft tissue swelling. Erosion of the lateralaspect of the fifth metatarsal head. Post operative changes. Possibility of of osteomyelitisis not excluded. Ghulam Byrd DPM RADIOLOGY [facility] EXTERNAL documented in this encounter Visit Diagnoses Diagnosis Other chronic osteomyelitis of right foot (HCC)- Primary Right foot pain Pain in limb Right foot pain Pain in limb Other chronic osteomyelitis of right foot (HCC) documented in this encounter Care Teams Outsole Flexer Relationship Specialty Start Date End Date Celio Marmolejo MD [address] [place] [address] PCP - General Internal Medicine 08/31/16 10/13/20 Miller Villalpando [address] [place] [address] PCP - General Internal Medicine 10/14/20 documented as of this encounter
--- OUTSIDE RECORDS SUMMARY | 2024-07-03 10:47 | XMS_ITS | Clinical Summary ---
Author Organization [facility] Address [address] [place] [address] Care Team Providers Care Class A Regional Truck Driver Name Role Phone [place] Villalpando Primary Care Provider Unavailabl e Allergies Active Allergy Reactions Severity Noted Date Comments Prednisone OTHER 09/22/2016 Induces psychosis Medications Medication Sig Dispensed Refills Start Date End Date Status amitriptyline (ELAVIL) 100 MG tablet Take 100 mg by mouth at bedtime. 0 Active Aspirin (ASPIR-81 OR) Take 81 mg by mouth daily. 0 Active risperidone (RISPERDAL) 0.25 MG tablet Take 0.25 mg by mouth 2 times daily. 0 Active fluticasone 50 MCG/ACT nasal sprayIndications:Chr onic obstructive pulmonary disease, unspecified COPD type (HCC) USE 1 SPRAY IN EACH NOSTRIL EVERY DAY DIRECTED 1 Bottle 11 11/23/2018 Active Umeclidinium-Vilante rol 62.5-25 MCG/INH AEROSOL POWDER,BREATH ACTIVATED Inhale 1 Puff into the lungs at bedtime. 0 Active gabapentin (NEURONTIN) 600 MG tablet Take 600 mg by mouth 3 times daily. 0 Active ropinirole (REQUIP) 1 MG tablet Take 1 mg by mouth daily. 0 Active B Complex Vitamins (B COMPLEX 1 OR) Take by mouth daily. 0 Active Lactobacillus (PROBIOTIC ACIDOPHILUS OR) Take by mouth daily. 0 Active lidocaine (LIDODERM) 5 % Place 1 Patch onto the skin every 24 hours. Apply for no more than 12 hours in any 24 hour period. 0 Active baclofen (LIORESAL) 20 MG tablet Take 1 Tab by mouth 2 times daily. 0 02/06/2020 Active busPIRone (BUSPAR) 15 MG tablet Take 15 mg by mouth 2 times daily. 0 Active Ipratropium-Albutero l 20-100 MCG/ACT Aero Soln Inhale into the lungs. 0 Active valacyclovir (VALTREX) 500 MG tablet TAKE 1 TABLET BY MOUTH EVERY DAY 90 tablet 2 08/20/2020 Active Nicotrol 10 MG inhaler INHALE 1 PUFF BY MOUTH INTO THE LUNGS NEEDED FOR SMOKING CESSATION FOR UP TO 30 DAYS 168 Each 1 08/26/2020 Active omeprazole (PRILOSEC) 20 MG capsule TAKE 1 CAPSULE BY MOUTH DAILY 30 capsule 5 09/02/2020 Active montelukast (SINGULAIR) 10 MG tablet TAKE 1 TABLET BY MOUTH EVERY DAY 30 tablet 5 09/02/2020 Active Roflumilast (DALIRESP OR)Indications:Palpi tations Take by mouth. 0 Active Cholecalciferol (Vitamin D) 25 MCG (1000 UT) TabIndications:Palpi tations Take 1 tablet by mouth daily. 0 Active clonazepam (KLONOPIN) 1 MG tabletIndications:Pa lpitations Take 1 mg by mouth 2 times daily as needed. 0 Active buPROPion (WELLBUTRIN XL) 150 MG 24 hr tabletIndications:Pa lpitations Take 150 mg by mouth every morning. 0 Active Active Problems Problem Noted Date Palpitations 07/03/2020 COVID-19 03/14/2020 Pneumonia due to infectious organism Chronic obstructive pulmonary disease Elevated blood pressure reading without diagnosis of hypertension 03/23/2017 Tubular adenoma 11/04/2016 Overview: 03/2014 colonoscopy and EGD, 2 polyps R colon, small size hiatal hernia. Repeat 3 years Allergic rhinitis 11/04/2016 Depression 11/04/2016 History of abnormal cervical Pap smear 0 11/04/2016 Overview: 03/07/2014 Atypical squamous cell changes ASCUS, positive high risk HPV. Osteoporosis 11/04/2016 Overview: Bone density 03/2015 Asthma 09/22/2016 COPD (chronic obstructive pulmonary dise ase) 09/22/2016 Chronic bronchitis 09/22/2016 Bronchiectasis 09/22/2016 NATASHA on CPAP 09/22/2016 Overview: Uses CPAP every night Mitral valve prolapse 09/22/2016 Overview: Last saw cardiology in 2011 Restless leg syndrome 09/22/2016 Overview: Sees neurologist (Dr Nancy Donato) Migraine 09/22/2016 Anxiety 09/22/2016 Overview: Dr Dariela Navarro History of cocaine use 09/22/2016 HSV infection 09/22/2016 Seizure 09/22/2016 Overview: Neurology (01/28/18): after reviewing [facility] notes, will cosnider AED. Cont amitriptyline 100mg qhs, magnesium 400mg qhs, imitrex prn. Cont ropiniorle Neurology (02/22/17): For her history of convulsions, it is unclear if patient's symptoms are consistent with seizure, migraine or other phenomenon. Advised to undergo 48 hour ambulatory EEG. Depending on results, will consider tapering off gabapentin. Continue amitriptyline for headaches, continue ropinirole, continue CPAP. Advised patient to avoid using cocaine Neurology (12/22/16): Patient informed neurology that while using CPAP, she wakes up at mask around her neck or as thrown across the room. Patient reports her machine has not been connected to CPAP or past week. I gabapentin is causing GI upset and vomiting. No recent seizure like activity. Her SSA was stable on ropinirole 4 mg. Headaches are worse. Plan: Trial adding Tegretol X Sartor 100 mg 1 tablet twice a day for 2 weeks then 2 tablets twice a day. We'll taper of gabapentin is causing vomiting. Injury immature Alexandre milligrams at night for headaches. Continue ropinirole 4 mg at night. Advised to sleep well. CPAP compliance stressed, follow-up in one month. 05/15/2016: Seizure likely multifactoral including dehydration and drug withdrawal so likely provoked. Advised continue Gabapentin, keep well hydrated, avoid recreational drugs (pt had been using marijuana and cocaine earlier that day.) f/u w/ neuro as directed. GERD (gastroesophageal reflux disease) 0 09/22/2016 IBS (irritable bowel syndrome) 7 Resolved Problems Problem Noted Date Resolved Date HTN (hypertension) 11/04/2016 03/23/2017 Immunizations Name Administration Dates Next Due Hepatitis B > 19yrs 10/18/2017,05/18/2017,2016 Influenza (> 6 Months) 02/02/2020,03/16/2016 Pneumococcal Conjugate PCV-13 03/12/2015 Shingrix (Recombinant zoster vaccine) 07/11/2017 Tdap 04/01/2017 Family History Medical History Relation Name Comments Hypertension Father CA Colon, colon polyps, depression, anxiety, HTN, hyperlipidemia, cataracts CA Colon Maternal Grandmother Colon Polyps Mother asthma, hyperli pidemia, depression-hx of SI Colon Polyps Sister CA Breast Negative Hx Relation Name Status Comments Father Alive Maternal Grandmother Mother Alive Sister Social History Tobacco Use Types Packs/Day Years Used Date Smoking Tobacco: Every Day Cigarettes 1 Smokeless Tobacco: Never Comments:1-2 cigarettes spenser y Alcohol Use Standard Drinks/Week Comments Yes 0 (1 standard drink = 0.6 oz pur e alcohol) rarely Sex Assigned at Date Recorded Not on file Last Filed Vital Signs Vital Sign Reading Time Taken Comments Blood Pressure 136/92 11/01/2020 2:01 PM EDT Pulse 80 11/01/2020 2:01 PM EDT Temperature 36.9 ??C (98.5 ??F) 11/26/2018 11:15 AM E DT Respiratory Rate 22 10/27/2018 1:12 PM EDT Oxygen Saturation 95% 11/01/2020 2:01 PM EDT Inhaled Oxygen Concentration - - Weight 71.2 kg (157 lb) 11/01/2020 2:01 PM EDT Height 170.2 cm (5' 7 ) 11/01/2020 2:01 PM EDT Body Mass Index 24.59 11/01/2020 2:01 PM EDT Plan of Treatment Health Maintenance Due Date Last Done Comments Covid-19 Vaccine (#1) 1965 SHINGLES VACCINE (2 of 2) 09/05/2017 07/11/2017 DEPRESSION SCREEN 07/01/2018 07/01/2017 (Completed) COLON CANCER SCREENING 09/09/2020 8, 03/05/2014 (External Completion), 03/05/2014 MAMMOGRAM 04/01/2021 04/01/2020, 03/04, 02/14/2020, Additional history exists BASELINE HEALTH EXAM 40-64 02/13/202202/13, 05/17/2019 (Completed), 05/17/2019, Additional history exists CERVICAL CANCER SCREENING 05/21/20232020, 05/18/2017, 03/07/2014 (External Completion), Additional history exists INFLUENZA (#1) 2024 02/02/2020, 06/2019, 05/07/2019, Additional history exists CHOLESTEROL SCREENING 07/25/2025 07/25/2020 , 05/17/2019, 12/08/2016 DTAP/TDAP/TD (2 - Td or Tdap) 04/01/2027 04/01/2017 PNEUMOCOCCAL VACCINE FOR HIG H RISK PATIENTS (#2) 2031 03/12/2015 HEPATITIS C SCREENING Completed 11/25/2017, 017 Care Teams Class A Regional Truck Driver Relationship Specialty Start Date End Date [place] Villalpando PCP - General Internal Medicine 10/14/20
--- OUTSIDE RECORDS SUMMARY | 2024-07-03 10:47 | XMS_ITS | Encounter Summary ---
Author Organization [facility] Address [address] [place] [address] Care Team Providers Care Dog Food Shredder Operator Name Role Phone Celio Marmolejo MD Primary Care Provider [phone] [place] Villalpando Primary Care Provider Unavailabl e Reason for Visit * Reason Onset Date Comments Infiltrates 11/08/2017 [email or web address] Encounter Details Date Type Department Care Team Description 11/08/2017 Telephone Pulmonology - [address] [place] [address] Diego Hartley MD Infiltrates (pnuemonia ) Social History Tobacco Use Types Packs/Day Years Used Date Smoking Tobacco: Former Cigarettes 1 Q uit: 10/14/2017 Smokeless Tobacco: Never Alcohol Use Standard Drinks/Week Comments Yes 0 (1 standard drink = 0.6 oz pur e alcohol) rarely Sex Assigned at Date Recorded Not on file documented as of this encounter Miscellaneous Notes * Telephone Encounter - Yvonne Miranda M.A. - 11/09/2017 8:41 AM EDT Called pt lmom to call office. * Telephone Encounter - Diego Hartley MD - 11/08/2017 5:10 PM EDT Sounds like she needs to go to the ED * Telephone Encounter - Gabriela Holland - 11/08/2017 11:52 AM EDT Patient is calling back, states that she does not really want to go to the ER. But would like to have something sent to the pharmacy for anti-nausea, that it would make her feel better. * Telephone Encounter - Yvonne Miranda M.A. - 11/08/2017 9:50 AM EDT Spoke to pt she is on prednisone and levaquin she does not like the prednisone because it makes herjittery. She is vomitting and has some chest pain,SOB no fever.advised her to go to the ER.FYI.she will go to [facility] ED. * Telephone Encounter - Gabriela Holland - 11/08/2017 9:43 AM EDT [id number] Patient is calling in due to double pnuemonia. She woke up about an hour and she is having lots of burning sensation in her lungs and she is having dry heaves. Worried about dehydration. Prednisone gives her a bad reaction. She is currently crying and very anxious but states that she believes that it is because of the prednisone. documented in this encounter Plan of Treatment Not on file documented as of this encounter Visit Diagnoses Not on filedocumented in this encounter Care Teams Dog Food Shredder Operator Relationship Specialty Start Date End Date Celio Marmolejo MD [address] [place] [address] PCP - General Internal Medicine 08/31/16 10/13/20 [place] Villalpando [address] [place] [address] PCP - General Internal Medicine 10/14/20 documented as of this encounter
--- OUTSIDE RECORDS SUMMARY | 2024-07-03 10:47 | XMS_ITS | Encounter Summary ---
Author Organization [facility] Address [address] [place] [address] Care Team Providers Care Household Appliances Service Technician Name Role Phone [place] Villalpando Primary Care Provider Alejandro hinton Encounter Details Date Type Department Care Team Description 10/24/2020 SCAN Medical Records [address] [place] [address] Abstract, Provider Social History Tobacco Use Types Packs/Day Years Used Date Smoking Tobacco: Every Day Cigarettes 1 Smokeless Tobacco: Never Comments:3-4 cigarettes a da y Alcohol Use Standard Drinks/Week Comments Yes 0 (1 standard drink = 0.6 oz pur e alcohol) rarely Sex Assigned at Date Recorded Not on file documented as of this encounter Progress Notes * Sita Mahoney MD - 11/11/2020 3:37 PM EDT Please call patient and notify her that her labwork looked okay. No major abnormalities. She can follow up with us as needed only but should continue to work with her PCP. Thanks. documented in this encounter Plan of Treatment Not on file documented as of this encounter Procedures Procedure Name Priority Date/Time Associated Diagnosis Comments OUTSIDE LAB Routine 10/24/2020 OUTSIDE LAB Routine 10/24/2020 documented in this encounter Results * OUTSIDE LAB (10/24/2020) Provider Default LAB * OUTSIDE LAB (10/24/2020) Provider Default LAB documented in this encounter Visit Diagnoses Not on filedocumented in this encounter Care Teams Household Appliances Service Technician Relationship Specialty Start Date End Date [place] Villalpando PCP - General Internal Medicine 10/14/20 documented as of this encounter
--- OUTSIDE RECORDS SUMMARY | 2024-07-03 10:47 | XMS_ITS | Encounter Summary ---
Author Organization [facility] Address [address] [place] [address] Care Team Providers Care Power System Operator Name Role Phone Celio Marmolejo MD Primary Care Provider [phone] [place] Villalpando Primary Care Provider Unavailabl e Encounter Details Date Type Department Care Team Description 02/22/2017 Qa Software Tester Report Medical Records [address] [place] [address] Abstract, Provider Social History Tobacco Use Types [...] on filedocumented in this encounter Care Teams Power System Operator Relationship Specialty Start Date End Date Celio Marmolejo MD [address] [place], [place] [id number] PCP - General Internal Medicine 08/31/16 10/13/20 [place] Villalpando [address] [place] [address] PCP - General Internal Medicine 10/14/20 documented as of this encounter
--- OUTSIDE RECORDS SUMMARY | 2024-07-03 10:47 | XMS_ITS | Encounter Summary ---
Author Organization [facility] Address [address] [place] [address] Care Team Providers Care Medical Accounts Receivable Specialist Name Role Phone Celio Marmolejo MD Primary Care Provider [phone] [place] Villalpando Primary Care Provider Unavailabl e Encounter Details Date Type Department Care Team Description 05/20/2017 Transfer Records Medical Records [address] [place] [address] Abstract, Provider Social History Tobacco Use Types [...] Name Priority Date/Time Associated Diagnosis Comments OUTSIDE SLEEP STUDY Routine 08/06/2014 documented in this encounter Results * OUTSIDE SLEEP STUDY (08/06/2014) Provider Abstract PULMONOLOGY documented in this encounter Visit Diagnoses Not on filedocumented in this encounter Care Teams Medical Accounts Receivable Specialist Relationship Specialty Start Date End Date Celio Marmolejo MD [address] [place] [address] PCP - General Internal Medicine 08/31/16 10/13/20 [place] Villalpando [address] [place] [address] PCP - General Internal Medicine 10/14/20 documented as of this encounter
--- OUTSIDE RECORDS SUMMARY | 2024-07-03 10:47 | XMS_ITS | Encounter Summary ---
Author Organization [facility] Address [address] [place] [address] Care Team Providers Care Cushion Maker Hand Name Role Phone Celio Marmolejo MD Primary Care Provider [phone] [place] Villalpando Primary Care Provider Unavailabl e Encounter Details Date Type Department Care Team Description 10/18/2017 Business Doc Medical Records [address] [place] [id number] Abstract, Provider Social History Tobacco Use Types [...] on filedocumented in this encounter Care Teams Cushion Maker Hand Relationship Specialty Start Date End Date Celio Marmolejo MD [address] [place] [address] PCP - General Internal Medicine 08/31/16 10/13/20 [place] Villalpando [address] [place] [address] PCP - General Internal Medicine 10/14/20 documented as of this encounter
--- OUTSIDE RECORDS SUMMARY | 2024-07-03 10:47 | XMS_ITS | Encounter Summary ---
Author Organization [facility] Address [address] [place] [address] Care Team Providers Care Insulation Batting Machine Operator Name Role Phone Celio Marmolejo MD Primary Care Provider [phone] [place] Villalpando Primary Care Provider Unavailabl e Reason for Visit * Reason Onset Date Comments Medication 08/10/2018 Encounter Details Date Type Department Care Team Description 08/10/2018 Telephone Pulmonology - [place] [address] [facility] [address] [place] [address] Diego Hartley MD Medication Social History Tobacco Use Types Packs/Day Years Used Date Smoking Tobacco: Former Cigarettes 1 Q uit: 04/02/2018 Smokeless Tobacco: Never Alcohol Use Standard Drinks/Week Comments Yes 0 (1 standard drink = 0.6 oz pur e alcohol) rarely Sex Assigned at Date Recorded Not on file documented as of this encounter Miscellaneous Notes * Telephone Encounter - Eunice Ling M.A. - 08/10/2018 9:53 AM EDT Please advise. * Telephone Encounter - Demetrius Woodson - 08/10/2018 9:32 AM EDT Patient calling states she 07/28/18 patient was given azithromycin (ZITHROMAX) 250 MG tablet, she came back from trip and is not feeling good at all is questioning if she should continue taking the meds but 10 day series ir 5 day series . Please advise documented in this encounter Plan of Treatment Not on file documented as of this encounter Visit Diagnoses Not on filedocumented in this encounter Care Teams Insulation Batting Machine Operator Relationship Specialty Start Date End Date Celio Marmolejo MD [address] [place] [address] PCP - General Internal Medicine 08/31/16 10/13/20 [place] Villalpando [address] [place] [address] PCP - General Internal Medicine 10/14/20 documented as of this encounter
--- OUTSIDE RECORDS SUMMARY | 2024-07-03 10:47 | XMS_ITS | Encounter Summary ---
Author Organization [facility] Address [address] [place] [address] Care Team Providers Care Sketch Artist Name Role Phone Celio Marmolejo MD Primary Care Provider [phone] [place] Villalpando Primary Care Provider Unavailabl e Encounter Details Date Type Department Care Team Description 03/01/2020 Hospital Medical Records [address] [place] [address] [facility] Social History Tobacco Use Types Packs/Day Years [...] have Coronavirus / COVID-19? No / Unsure 02/14/2020 2:24 PM EDT documented as of this encounter Plan of Treatment Not on file documented as of this encounter Procedures Procedure Name Priority Date/Time Associated Diagnosis Comments OUTSIDE HOLTER MONITOR Routine 03/03/2020 OUTSIDE EKG Routine 03/01/[address] Routine 03/01/2020 OUTSIDE LAB Routine 03/01/2020 documented in this encounter Results * OUTSIDE HOLTER MONITOR (03/03/2020) Provider Default CARDIOLOGY * OUTSIDE CT (03/01/2020) Provider Default RADIOLOGY * OUTSIDE LAB (03/01/2020) Provider Default LAB * OUTSIDE EKG (03/01/2020) Provider Default CARDIOLOGY documented in this encounter Visit Diagnoses Not on filedocumented in this encounter Care Teams Sketch Artist Relationship Specialty Start Date End Date Celio Marmolejo MD [address] [place] [address] PCP - General Internal Medicine 08/31/16 10/13/20 [place] Villalpando [address] [place] [address] PCP - General Internal Medicine 10/14/20 documented as of this encounter
--- OUTSIDE RECORDS SUMMARY | 2024-07-03 10:47 | XMS_ITS | Encounter Summary ---
Author Organization [facility] Address [address] [place] [address] Care Team Providers Care Office Machine Service Supervisor Name Role Phone Celio Marmolejo MD Primary Care Provider [phone] [place] Villalpando Primary Care Provider Unavailabl e Reason for Visit * Reason Comments E-prescribe Rx Request Encounter Details Date Type Department Care Team Description 04/15/2018 Refill Adult Medicine [address] [address] Diego Hartley MD E-prescribe Rx Request Social History Tobacco Use Types Packs/Day Years Used Date Smoking Tobacco: Former Cigarettes 1 Q uit: 10/14/2017 Smokeless Tobacco: Never Alcohol Use Standard Drinks/Week Comments Yes 0 (1 standard drink = 0.6 oz pur e alcohol) rarely Sex Assigned at Date Recorded Not on file documented as of this encounter Miscellaneous Notes * Telephone Encounter - Gabriela Holland - 04/15/2018 2:15 PM EST Patient would like script to be: E-PRESCRIBED/FAXED TO PHARMACY WHEN WAS THE PATIENT'S LAST APPOINTMENT WITH THE PRESCRIBING PROVIDER? [id number] Does patient have an upcoming appointment? Yes [id number] (THE MEDICATION REQUESTED IS ON THE MED LIST ABOVE) All of the medications requested were on the CURRENT MEDS list Did you check the Pharmacy information above?: YES Patient wants: 90 -day supply Is this a mail order prescription request ? NO Patients current insurance [place] is: [place] / [place] / Product Type: MEDICARE [id number] documented in this encounter Plan of Treatment Not on file documented as of this encounter Visit Diagnoses Not on filedocumented in this encounter Care Teams Office Machine Service Supervisor Relationship Specialty Start Date End Date Celio Marmolejo MD [address] [place] [address] PCP - General Internal Medicine 08/31/16 10/13/20 [place] Villalpando [address] [place] [address] PCP - General Internal Medicine 10/14/20 documented as of this encounter
[2024-07-03 11:03] LABS: Erythrocyte Sedimentation Rate 6 MM/HR (0-20)
[2024-07-03] MEDS: Acetaminophen 1,000 MG/100 ML PIGGYBACK 400 MG IV (11:29)
[2024-07-03] MEDS: ondansetron HCL 4 MG/2 ML VIAL IVPUSH ×2 (11:29→21:59)
--- NOTE | 2024-07-03 11:42 | PC.NURSE ---
BETHANIE Razo at bedside speaking with patient. Medicated per provider orders. Currently rates pain 9 out of 10. Patient is pleasant, cooperative. Oxygen flowing via nasal cannula, vitals noted to have improved. Plan for admission. Patient requested and given ice chips, okayed by BETHANIE Reddy. Care ongoing by this RN.
--- NOTE | 2024-07-03 12:09 | PC.NURSE ---
Patient attempted to use the bathroom to have bowel movement, but was unsuccessful. No bowel movement. BETHANIE Reddy aware. Ambulated with steady gait. Care ongoing by this RN.
[2024-07-03 12:29] LABS: OBS Int Ctl Valid YES; OBS1 POSITIVE (NEGATIVE)
[2024-07-03 13:07] LABS: Troponin-I High Sensitivity 8.5 ng/L (<3.5-17.0)
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
[2024-07-03] MEDS: Enoxaparin Sodium 30 MG/0.3 ML SYRINGE SUBCUT (13:54)
[2024-07-03] MEDS: metroNIDAZOLE/NS 500 MG/100 ML PIGGYBACK 100 MG IV (13:55)
[2024-07-03] MEDS: Morphine Sulfate 4 MG/ML CARTRIDGE IVPUSH (13:55)
--- NOTE | 2024-07-03 14:46 | PHA.MEDREC ---
Addendum entered by Merlene Mendoza RPh 07/03/24 15:48: reviewed by [facility]. Original Note: Pharmacy Consult ? Medication Reconciliation Pharmacy has completed the medication reconciliation. Spoke with patient to confirm medications. She confirmed 1/2 tab of bupropion daily and 1/2 tab of theophylline q12h. She confirmed methotrexate 2.5 mg tabs - 3 tabs on Wednesday, which she took last Wednesday. She says she only took 2 tabs last week by accident. She still uses Combivent QID, LF August 2023. She does use Anoro daily but did not this morning. She took her morning medications today.
[2024-07-03] MEDS: Ciprofloxacin Lactate/D5W 400 MG/200 ML PIGGYBACK 200 MG IV (14:57)
[2024-07-03] MEDS: Lactated Ringers 1,000 ML 125 ML IVCONT ×2 (14:57→21:59)
[2024-07-03] MEDS: Morphine Sulfate 2 MG/ML CARTRIDGE IVPUSH ×2 (17:33→21:59)
[2024-07-03] MEDS: 0.9 % Sodium Chloride Flush 3 ML SYRINGE IVFLUSH ×2 (17:35→22:01)
[2024-07-03 17:56] LABS: Appearance Urine Clear; Color Urine Yellow; Glucose Urine UA Negative (Negative); Leukocyte Esterase Urine Negative (Negative); Nitrite Urine Negative (Negative); PH 7.5 (5.0-9.0); Specific Gravity - Urine <= 1.005 (1.005-1.025); Urine Blood Negative (Negative); Urine Ketones Negative (Negative); Urine Protein Negative (Neg-Trace)
--- NOTE | 2024-07-03 18:11 | PC.NURSE ---
Called respiratory therapy to administer duoneb. Aware of Bipap needs at home, plan to apply bipap for sleep.
[2024-07-03] MEDS: Albuterol/Iprat 2.5/0.5MG 3 ML AMPUL.NEB INHALE (19:33)
[2024-07-03] MEDS: risperiDONE 0.5 MG TABLET PO (20:27)
[2024-07-03] MEDS: clonazePAM 1 MG TABLET PO (20:27)
[2024-07-03] MEDS: busPIRone HCl 5 MG TABLET 15 MG PO (20:27)
[2024-07-03] MEDS: rOPINIRole HCL 1 MG TABLET PO (20:27)
[2024-07-03] MEDS: traZODone HCL 100 MG TABLET PO (20:27)
[2024-07-03] MEDS: valACYclovir HCL 500 MG TABLET PO (20:27)
[2024-07-03] MEDS: Piperacillin Sodium/Tazobactam 2.25 GM in 0.9 % Sodium Chloride 50 ML IV (20:28)
[2024-07-03] MEDS: Amitriptyline HCl 50 MG TABLET 100 MG PO (20:41)
[2024-07-03] MEDS: Theophylline Anhydrous ER 300 MG TAB.ER.12H 150 MG PO (20:41)
--- NOTE | 2024-07-03 22:40 | PC.NURSE ---
Patient attempted (again) to provide stool specimen, but was unable. Urinated without issue. Ambulates steadily. RT to bedside applying BiPAP which patient uses at home at 3L oxygen while sleeping. IV access to hand remains patent and functional. LR infusing as ordered. NPO, okayed ice chips per Janice. Able to make needs known, call vega within reach. Continuous monitoring in place. Care ongoing by this RN.
[2024-07-04] VITALS (13 sets, daily range): BP systolic 119–173; BP diastolic 60–87; PULSE 85–102; RESP 11–22; TEMP 36.3–37.2; O2SAT 93–99
[2024-07-04] MEDS: Piperacillin Sodium/Tazobactam 2.25 GM in 0.9 % Sodium Chloride 50 ML IV ×4 (02:47→21:22)
[2024-07-04] MEDS: Morphine Sulfate 2 MG/ML CARTRIDGE IVPUSH ×5 (03:22→23:33)
[2024-07-04 05:45] LABS: Hematocrit 35.6 % (37.0-47.0); Hemoglobin 12.1 g/dl (12.0-16.0); Mean Corpuscular Hemoglobin 33.7 pg (27.0-33.0); Mean Corpuscular Volume 99.2 fL (80.0-98.0); Mean Platelet Volume 9.3 fL (9.4-12.3); Platelet Count 238 X10*3/uL (160-400); Red Blood Count 3.59 X10*6/uL (4.20-5.50); Red Cell Distribution Width 14.6 % (11.0-16.0); White Blood Count 8.8 X10*3/uL (4.8-10.8)
[2024-07-04 05:59] LABS: Anion Gap 13 (12-20); Blood Urea Nitrogen 8 mg/dL (9-16); Calcium 9.2 mg/dL (8.4-10.2); Carbon Dioxide 26 mmol/L (22-29); Chloride 107 mmol/L (96-108); Estimated Glomerular Filt Rate 44; Glucose Random 102 mg/dL (60-115); Potassium 4.3 mmol/L (3.3-5.1); Sodium 142 mmol/L (135-145)
[2024-07-04] MEDS: Lactated Ringers 1,000 ML 125 ML IVCONT ×3 (05:59→23:25)
[2024-07-04] MEDS: ondansetron HCL 4 MG/2 ML VIAL IVPUSH ×2 (06:00→23:32)
[2024-07-04] MEDS: Acetaminophen 325 MG TABLET 650 MG PO ×2 (06:09→15:42)
[2024-07-04] MEDS: Omeprazole 20 MG CAPSULE.DR PO (06:52)
[2024-07-04] MEDS: buPROPion HCL 75 MG TABLET 37.5 MG PO (08:28)
[2024-07-04] MEDS: risperiDONE 0.5 MG TABLET PO ×3 (08:29→21:20)
[2024-07-04] MEDS: clonazePAM 1 MG TABLET PO ×3 (08:29→21:22)
[2024-07-04] MEDS: Montelukast Sodium 10 MG TABLET PO (08:30)
[2024-07-04] MEDS: Folic Acid 1 MG TABLET PO (08:30)
[2024-07-04] MEDS: busPIRone HCl 5 MG TABLET 15 MG PO ×3 (08:30→21:20)
[2024-07-04] MEDS: Albuterol/Iprat 2.5/0.5MG 3 ML AMPUL.NEB INHALE ×4 (08:34→20:03)
[2024-07-04] MEDS: Roflumilast 500 MCG TABLET PO (09:11)
[2024-07-04] MEDS: Theophylline Anhydrous ER 300 MG TAB.ER.12H 150 MG PO ×2 (09:11→21:22)
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
--- NOTE | 2024-07-04 14:11 | MHC.CM.PN ---
PT LIVES ALONE HAS OWN RIDE HOME HER CAR IN LOT PT IS INDEPDENT DC PLAN HOME N/S
--- NOTE | 2024-07-04 14:46 | HO.PM.IMPN ---
Subjective Subjective Date of Service: 07/04/24 Interval History: colitis Review of Systems has significant abd pain no diarrahae Physical Exam Vital Signs: Vital Signs: Last Vital Signs Temp 98.9 F 07/04/24 12:03 Pulse 85 07/04/24 12:13 Resp 16 07/04/24 12:13 BP 160/87 H 07/04/24 12:03 Pulse Ox 99 07/04/24 12:03 O2 Del Method Non-Rebreather Ma sk 07/04/24 12:03 O2 Flow Rate 2 07/04/24 12:03 Oxygen Flow Rate 2 07/03/24 08:28 BMI result Body Mass Index 24.7 Appearance: Alert.? Oriented X3.? cvs: rrr, [id number]. res: clear to auscultation ,no rhonchii or wheezing abd: no rebound or guarding ,left side tenderness;, bs present. ext pulses present , no cyanosis neuro: axo3 , nonfocal. Objective Data Active Medications Acetaminophen (Acetaminophen 325 Mg Tablet) 650 mg PO Q6H PRN PRN Reason: Pain, Mild 1-3,fever,headache Last Admin: 07/04/24 06:09 Dose: 650 mg Documented By: SUDHAKAR Albuterol/Ipratropium (Albuterol/Iprat 2.5/0.5mg 3 Ml Ampul.Neb) 3 ml INHALE BID PRN PRN Reason: Shortness Of Breath Or Wheezing Albuterol/Ipratropium (Albuterol/Iprat 2.5/0.5mg 3 Ml Ampul.Neb) 3 ml INHALE RQID [facility] Last Admin: 07/04/24 12:12 Dose: 3 ml Documented By: ROBBIE Amitriptyline HCl (Amitriptyline Hcl 50 Mg Tablet) 100 mg PO BEDTIME [facility] Last Admin: 07/03/24 20:41 Dose: 100 mg Documented By: CLARE Bupropion HCl (Bupropion Hcl 75 Mg Tablet) 37.5 mg PO DAILY [facility] Last Admin: 07/04/24 08:28 Dose: 37.5 mg Documented By: SURYA Buspirone HCl (Buspirone Hcl 5 Mg Tablet) 15 mg PO TID [facility] Last Admin: 07/04/24 08:30 Dose: 15 mg Documented By: SURYA Calcium Carbonate (Calcium Carbonate 750 Mg Tab.Chew) 750 mg PO Q4H PRN PRN Reason: Heartburn Clonazepam (Clonazepam 1 Mg Tablet) 1 mg PO TID [facility] Last Admin: 07/04/24 08:29 Dose: 1 mg Documented By: SURYA Enoxaparin Sodium (Enoxaparin Sodium 40 Mg/0.4 Ml Syringe) 40 mg SUBCUT DAILY [facility] Folic Acid (Folic Acid 1 Mg Tablet) 1 mg PO DAILY [facility] Last Admin: 07/04/24 08:30 Dose: 1 mg Documented By: SURYA Lactated Ringer's (Lr) 1,000 mls @ 125 mls/hr IVCONT .Q8H [facility] Last Admin: 07/04/24 05:59 Dose: 125 mls/hr Documented By: SUDHAKAR Piperacillin Sod/Tazobactam (Sod 2.25 gm/ Sodium Chloride) 50 mls @ 100 mls/hr IV Q6H [facility] Last Infusion: 07/04/24 09:01 Dose: Infused Documented By: SURYA Melatonin (Melatonin 3 Mg Tablet) 6 mg PO BEDTIME PRN PRN Reason: Insomnia Montelukast Sodium (Montelukast Sodium 10 Mg Tablet) 10 mg PO DAILY [facility] Last Admin: 07/04/24 08:30 Dose: 10 mg Documented By: SURYA Morphine Sulfate (Morphine Sulfate 2 Mg/Ml Cartridge) 2 mg IVPUSH Q4H PRN; Protocol PRN Reason: Pain, Severe (Pain Scale 7-10) Last Admin: 07/04/24 13:51 Dose: 2 mg Documented By: SURYA Non-Formulary Medication (Umeclidinium-Vilanterol [Anoro Ellipta]) 1 each PO DAILY [facility] Omeprazole (Omeprazole 20 Mg Capsule.Dr) 20 mg PO DAILY@0630 [facility] Last Admin: 07/04/24 06:52 Dose: 20 mg Documented By: SUDHAKAR Ondansetron HCl (Ondansetron Hcl 4 Mg/2 Ml Vial) 4 mg IVPUSH Q8H PRN PRN Reason: Nausea and Vomiting Last Admin: 07/04/24 06:00 Dose: 4 mg Documented By: SUDHAKAR Polyethylene Glycol (Polyethylene Glycol 3350 17 Gm Powd.Pack) 17 gm PO DAILY PRN PRN Reason: Constipation Pregabalin (Pregabalin 200 Mg Capsule) 200 mg PO BID PRN PRN Reason: pain, moderate Risperidone (Risperidone 0.5 Mg Tablet) 0.5 mg PO TID [facility] Last Admin: 07/04/24 08:29 Dose: 0.5 mg Documented By: SURYA Roflumilast (Roflumilast 500 Mcg Tablet) 500 mcg PO DAILY [facility] Last Admin: 07/04/24 09:11 Dose: 500 mcg Documented By: SURYA Ropinirole HCl (Ropinirole Hcl 1 Mg Tablet) 1 mg PO BEDTIME [facility] Last Admin: 07/03/24 20:27 Dose: 1 mg Documented By: CLARE Sodium Chloride (0.9 % Sodium Chloride Flush 3 Ml Syringe) 3 ml IVFLUSH QSHIFT [facility] Last Admin: 07/04/24 09:00 Dose: Not Given Documented By: SURYA Non-Admin Reason: IV Running Theophylline (Theophylline Anhydrous Er 300 Mg Tab.Er.12h) 150 mg PO Q12H [facility] Last Admin: 07/04/24 09:11 Dose: 150 mg Documented By: SURYA Trazodone HCl (Trazodone Hcl 100 Mg Tablet) 100 mg PO BEDTIME [facility] Last Admin: 07/03/24 20:27 Dose: 100 mg Documented By: CLARE Valacyclovir HCl (Valacyclovir Hcl 500 Mg Tablet) 500 mg PO BEDTIME [facility] Last Admin: 07/03/24 20:27 Dose: 500 mg Documented By: CLARE Labs 07/04/24 05:40 07/04/24 05:40 Labs: Laboratory Results - last 24 hr 07/03/24 07/04/24 17:48 05:40 MCV 99.2 H MCH 33.7 H MCHC 34.0 RDW 14.6 Plt Count 238 D MPV 9.3 L Absolute Nucleated RBC 0.000 Nucleated RBC % (auto) 0.0 Anion Gap 13 Estim Creat Clear Calc 48.0 Estimated GFR 44 Random Glucose 102 Calcium 9.2 Urine Color Yellow Urine Appearance Clear Urine pH 7.5 Ur Specific [place] <= 1.005 Urine Protein Negative Urine Glucose (UA) Negative Urine Ketones Negative Urine Blood Negative Urine Nitrite Negative Ur Leukocyte Esterase Negative Microbiology Microbiology Results: Microbiology 07/03/24 10:42 Blood Culture - Preliminary Blood - Venous No growth after 24 hours. 07/03/24 10:21 Blood Culture - Preliminary Blood - Venous No growth after 24 hours. Assessment and Plan (1) Colitis: Status: Acute Assessment and Plan: 59-year-old female with a history of asthma/ COPD on 2 L of supplemental oxygen, NATASHA on bipap, RLS, pulmonary nodules who presents to the emergency department with abdominal pain and diarrhea found to have acute colitis Acute colitis no evidence of sepsis. bp soft on arrival due to hypovolemia, improved with IVF as patient is immune compromised on Plaquenil and methotrexate. GI studies pending/ C diff follow blood cultures, continue with Zosyn trial of clear liquids , will advance as tolerated MARCOS due to GI losses ,hold lisinopril marcos imrpoved with hydration moniter renal fucntion/electrolytes. asthma/COPD no acute exacerbation unable to tolerate steroids ast baseline and therefore on methotrexate/Plaquenil - will hold due to acute infection continue theophylline continue baseline inhalers NATASHA Continue nocturnal BiPAP mood continue baseline meds RLS continue ropinirole gerd continue omeprazole chronic pain continue amitriptyline,baclofen,prn lyrica dvt ppx - lovenox code status - full code ongoing need for hospital need for management of acute colitis requiring IV antibiotics, iv morphine ,moniter renal function/electrolytes. Quality Stroke Does the patient have a stroke diagnosis?: No VTE Prior VTE?: No VTE Risk Level:: Medical - moderate - high VTE Device Contraindication: N/A - Device Ordered VTE Drug Contraindication: N/A - Med Ordered
[2024-07-04] MEDS: Enoxaparin Sodium 40 MG/0.4 ML SYRINGE SUBCUT (15:43)
--- NOTE | 2024-07-04 15:54 | PC.NURSE ---
Assumed care of this patient at 1500, patient medicated per JUL, VS updated, transferred to hospital bed, denies any complaints at this time.
--- NOTE | 2024-07-04 15:56 | PC.NURSE ---
reminded patient stool sample needed, supplies at bedside, patient unable to give sample at this time.
[2024-07-04] MEDS: rOPINIRole HCL 1 MG TABLET PO (21:20)
[2024-07-04] MEDS: Hydroxychloroquine Sulfate 200 MG TABLET PO (21:20)
[2024-07-04] MEDS: Baclofen 20 MG TABLET PO (21:20)
[2024-07-04] MEDS: valACYclovir HCL 500 MG TABLET PO (21:20)
[2024-07-04] MEDS: traZODone HCL 100 MG TABLET PO (21:20)
[2024-07-04] MEDS: Amitriptyline HCl 50 MG TABLET 100 MG PO (21:22)
[2024-07-04] MEDS: Pregabalin 200 MG CAPSULE PO (22:31)
--- NOTE | 2024-07-05 00:54 | PC.NURSE ---
assumed care of pt at 2300. report received from Mary Ann HOGAN. pt medicated per jul for pain/nausea. LR bag replaced, running at 125ml/hr. call vega within reach. plan of care continues.
--- NOTE | 2024-07-05 01:31 | PC.NURSE ---
pt assisted to and from bedside commode
[2024-07-05] MEDS: Piperacillin Sodium/Tazobactam 2.25 GM in 0.9 % Sodium Chloride 50 ML IV ×2 (01:42→08:00)
[2024-07-05 06:26] VITALS: BP 105/72; PULSE 95; RESP 17; TEMP 36.6; O2SAT 100
--- NOTE | 2024-07-05 06:26 | PC.NURSE ---
pt had no episodes of BM/diarrhea this shift.
[2024-07-05] MEDS: Omeprazole 20 MG CAPSULE.DR PO (06:32)
--- NOTE | 2024-07-05 07:00 | PC.NURSE ---
Report taken from Clotilde Harper RN
[2024-07-05 07:51] VITALS: PULSE 95; RESP 17; O2SAT 98
[2024-07-05] MEDS: Albuterol/Iprat 2.5/0.5MG 3 ML AMPUL.NEB INHALE (07:51)
[2024-07-05] MEDS: Enoxaparin Sodium 40 MG/0.4 ML SYRINGE SUBCUT (08:01)
[2024-07-05] MEDS: Baclofen 20 MG TABLET PO (08:02)
[2024-07-05] MEDS: Folic Acid 1 MG TABLET PO (08:02)
[2024-07-05] MEDS: buPROPion HCL 75 MG TABLET 37.5 MG PO (08:02)
[2024-07-05] MEDS: busPIRone HCl 5 MG TABLET 15 MG PO (08:02)
[2024-07-05] MEDS: Montelukast Sodium 10 MG TABLET PO (08:02)
[2024-07-05] MEDS: clonazePAM 1 MG TABLET PO (08:03)
[2024-07-05] MEDS: risperiDONE 0.5 MG TABLET PO (08:03)
[2024-07-05] MEDS: Pregabalin 200 MG CAPSULE PO (08:14)
--- NOTE | 2024-07-05 09:12 | P.DS_ITS ---
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 Patient began having abdominal pain yesterday primarily located in the left lower quadrant. This has been associated with multiple episodes of nonbloody emesis as well as multiple episodes diarrhea initially nonbloody and then associated with bright red blood. She endorses subjective fever and chills. She denies any recent sick contacts. she reports decreased oral intake and has been unable to keep down any food since onset of symptoms. In the emergency department she had a CT scan which showed colitis involving the distal transverse and descending colon. Lab work was significant for acute kidney injury with creatinine of 1.76. The remainder her lab work was relatively unremarkable. She received IV fluid, IV pain medication as well as IV antibiotics in the emergency department and she will be admitted for further management. Hospital course: 59-year-old female with a history of asthma/ COPD on 2 L of supplemental oxygen, NATASHA on bipap, RLS, pulmonary nodules who presents to the emergency department with abdominal pain and diarrhea found to have acute colitis : Had mild leukocytosis, CT abdomen showed:Findings consistent with colitis involving the distal transverse and descending colon, also found to have mild JAQUAN with creatinine of 1.7: Patient was started on hydration, IV pain medication, antibiotics-patient seems to be improved significantly, tolerating diet, blood culture negative at 48 hours, transition to p.o. antibiotics upon discharge. In addition patient was seen by GI: Since patient H&H is stable, no new bleeding. Patient is to follow-up with GI out patiently for further workup once her colitis improves. JAQUAN: Improved with hydration,encouraged for hydration.hold lisinopril,repeat bmp outpatient before starting lisinopril. plan: mllifdt-opqlnzhmj-ausorysns 875 mg po bid for 5 days,already received 2 days of iv antibiotics. gib-due to above -follow up with GI and moniter cbc outaptient,hold nsaids or blood thinners. jaquan-improved ,encouraged for hydration.hold lisinopril,repeat bmp outpatient before starting lisinopril. Above management discussed with the patient in detail length, patient understand and in agreement with the above plan, time spent 40 minute. Time Attestation Total time managing care of this patient today: 40 mintues. Discharge Coordination Time (in mins): 40 min Quality: Safe Use of Opioids Does Pt have an Active Cancer Diagnosis on the Problem List?: No Quality: Stroke Does the patient have a stroke diagnosis?: No Physical Exam Vital Signs: Vital Signs: Last Vital Signs Temp 97.8 F 07/05/24 06:26 Pulse 95 07/05/24 07:51 Resp 17 07/05/24 07:51 BP 105/72 07/05/24 06:26 Pulse Ox 100 07/05/24 06:26 O2 Del Method Nasal Cannula 07/05/24 06:26 O2 Flow Rate 2 07/05/24 06:26 Oxygen Flow Rate 2 07/03/24 08:28 BMI result Body Mass Index 24.7 Appearance: Alert.? Oriented X3.? cvs: rrr, [id number]. res: clear to auscultation ,no rhonchii or wheezing abd: soft,nt ,nd, bs present. ext pulses present , no cyanosis neuro: axo3 , nonfocal. DS: Data Data Completed and Pending Completed studies during hospitalization [Text1]: Procedures Assistance with Respiratory Ventilation, Less than 24 Consecutive Hours, Continuous Positive Airway Pressure (02/27/21) Labs on day of discharge: Preliminary micro results at discharge 07/03/24 10:42 Blood Culture - Preliminary Blood - Venous No growth after 24 hours. 07/03/24 10:21 Blood Culture - Preliminary Blood - Venous No growth after 24 hours. Imaging Chest x-ray: Radiologist's impression: ITS Impressions Abdomen/Pelvis CT 07/03/24 11:05 IMPRESSION: Findings consistent with colitis involving the distal transverse and descending colon. Discharge Plan Discharge Anticipated Discharge Date/Time: 07/05/24 09:06 Patient Disposition: Home, Self-Care Discharge Diagnosis: colitis ,Gib Referrals: Po,Grabiel Gambino MD [Primary Care Provider] - 1 Week Nayely Carreno MD [Physician] - 2 Weeks Discharge Medications: New amoxicillin-pot clavulanate 875-125 mg tablet 1 tab PO Q12H Qty: 10 0RF Continued baclofen 20 mg tablet 20 mg PO BID 30 Days Qty: 60 12RF roflumilast 500 mcg tablet 500 mcg PO DAILY Qty: 90 2RF montelukast 10 mg tablet 10 mg PO DAILY 90 Days Qty: 90 3RF pregabalin 200 mg capsule 200 mg PO BID 30 Days Qty: 60 5RF Combivent Respimat 20-100 mcg/actuation mist 1 puff PO QID Qty: 4 0RF Anoro Ellipta 62.5-25 mcg/actuation blister with device 1 ea PO DAILY Qty: 60 0RF theophylline 300 mg tablet extended release 12 hr 150 mg PO Q12H 30 Days Qty: 30 11RF folic acid 1 mg tablet 1 mg PO DAILY 90 Days Qty: 90 3RF omeprazole 20 mg capsule,delayed release(DR/EC) 20 mg PO DAILY 90 Days Qty: 90 2RF clonazepam 1 mg tablet 1 mg PO TID risperidone 0.5 mg tablet 0.5 mg PO TID sumatriptan succinate 50 mg tablet 50 mg PO DAILY PRN (Reason: Migraine Headache) bupropion HCl 75 mg tablet 37.5 mg PO DAILY amitriptyline 100 mg tablet 100 mg PO BEDTIME buspirone 15 mg tablet 15 mg PO TID acetaminophen 500 mg Tablet 1,000 mg PO Q8H PRN (Reason: Pain) ipratropium-albuterol 0.5 mg-3 mg(2.5 mg base)/3 mL solution for nebulization 3 ml inhalation BID PRN (Reason: Shortness Of Breath Or Wheezing) methotrexate sodium 2.5 mg tablet 7.5 mg PO WE hydroxychloroquine 200 mg tablet 200 mg PO BEDTIME (DME) incentive Spirometry See Rx Instructions .Route .MEDSUPPLY Qty: 1 0RF Rx Instructions: As directed (DME) Oxygen Home Use Kit See Rx Instructions .Route Patient Comments: pt uses oxygen at hs Rx Instructions: As directed trazodone 50 mg tablet 100 mg PO BEDTIME (DME) CPAP Machine/Device Device See Rx Instructions .Route Rx Instructions: As directed (DME) nebulizers [facility] [place] See Rx Instructions .Route Rx Instructions: As directed ropinirole 1 mg tablet 1 mg PO BEDTIME valacyclovir 500 mg tablet 500 mg PO BEDTIME Held diclofenac potassium 50 mg tablet 50 mg PO BID Qty: 20 0RF Hold Instructions: Resume on 07/18/24. lisinopril 10 mg tablet 10 mg PO BEDTIME Hold Instructions: Resume on 07/09/24. Discharge Orders: Discharge Order (Routine); Ordered 07/05/24 Ordered By: Bebo Cerda Diet: Advance to usual diet Activity on Discharge: As tolerated Stand Alone Forms: Patient Portal Discharge page Print Language: Greenlandic Care Plan Goals: uyuecuq-vdremotrh-ymvfkzgfd 875 mg po bid for 5 days,already received 2 days of iv antibiotics. gib-due to above -follow up with GI and moniter cbc outaptient,hold nsaids or blood thinners. jaquan-improved ,encouraged for hydration.hold lisinopril,repeat bmp outpatient before starting lisinopril. Health Concerns: As above. Plan of Treatment: As above. Assessment: As above. Discharge Date/Time: 07/05/24 11:12
--- NOTE | 2024-07-05 09:13 | MHC.CM.PN ---
PT DCD HOME SELF CARE
[2024-07-05] MEDS: Amoxicillin/Potassium Clav 875 MG TABLET PO (11:19)
[2024-07-05 11:33] VITALS: BP 155/82; PULSE 99; RESP 20; TEMP 36.6; O2SAT 93
== END 2024-07-05 11:12 | disposition home or self-care (01) | DRG 392 ==
LOC: HO.ED 09:40 → HO.EDOVER 13:39
PROVIDERS: Physician Assistant Medical; Admitting Provider Physician Assistant Medical; Emergency Provider Emergency Medicine; PCP Internal Medicine; Visit Provider Internal Medicine
DX: A09 Infectious gastroenteritis and colitis, unspecified (principal); N17.9 Acute kidney failure, unspecified; K92.1 Melena; G47.33 Obstructive sleep apnea (adult) (pediatric); Z90.2 Acquired absence of lung [part of]; G62.9 Polyneuropathy, unspecified; J43.9 Emphysema, unspecified; G25.81 Restless legs syndrome; K21.9 Gastro-esophageal reflux disease without esophagitis; Z20.822 Contact with and (suspected) exposure to COVID-19; Z99.81 Dependence on supplemental oxygen; Z79.631 Long term (current) use of antimetabolite agent; Z79.899 Other long term (current) drug therapy
CPT/HCPCS: 0241U; 36415; 74176; 80048; 80076; 81003; 82272; 82550; 83605; 83690; 83735; 84484; 85025; 85027; 85652; 86140; 86850; 86900; 86901; 87040; 93005; 94640; 94660; 99221; 99285; J0131; J0744; J1650; J1836; J2270; J2405; J2543; J7120

== ENCOUNTER → 2024-07-03 09:59 | Outpatient (BNV) | payer MEDICARE, MEDICAID, SELFPAY | PROVIDERS: Admitting Provider Physician Assistant Medical; Emergency Provider Emergency Medicine; PCP Internal Medicine; Visit Provider Internal Medicine Cardiovascular Disease | DX: R00.0 Tachycardia, unspecified (principal) | CPT/HCPCS: 93010 ==

== ENCOUNTER → 2024-07-03 10:13 | Outpatient (BNV) | payer MEDICARE, MEDICAID, SELFPAY | PROVIDERS: Emergency Provider Emergency Medicine; PCP Internal Medicine; Visit Provider Radiology Diagnostic Radiology | DX: K92.1 Melena (principal); R10.32 Left lower quadrant pain | CPT/HCPCS: 74176 ==

== ENCOUNTER → 2024-07-03 13:38 | Outpatient (BNV) | payer MEDICARE, MEDICAID, SELFPAY | PROVIDERS: Admitting Provider Physician Assistant Medical; Emergency Provider Emergency Medicine; PCP Internal Medicine; Visit Provider Internal Medicine | DX: K52.9 Noninfective gastroenteritis and colitis, unspecified (principal); R10.9 Unspecified abdominal pain; K92.2 Gastrointestinal hemorrhage, unspecified | CPT/HCPCS: 99222 ==

== ENCOUNTER → 2024-07-03 13:38 | Outpatient (BNV) | payer MEDICARE, MEDICAID, SELFPAY | PROVIDERS: Admitting Provider Physician Assistant Medical; Emergency Provider Emergency Medicine; PCP Internal Medicine; Visit Provider Physician Assistant Medical | DX: K52.9 Noninfective gastroenteritis and colitis, unspecified (principal) | CPT/HCPCS: 99222; 99232; 99239 ==

== ENCOUNTER 2024-07-07 09:58 | Outpatient (AMB) | payer MEDICARE, MEDICAID, SELFPAY ==
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
--- OUTSIDE RECORDS SUMMARY | 2024-07-07 11:10 | XMS_ITS | Clinical Summary ---
Author Organization [facility] Address [address] [place] [address] Care Team Providers Care Mineral Surveying Technician Name Role Phone Unavailable Primary Care Provider Unavailabl e Source Comments PLEASE NOTE, if this patient is a minor, it may be UNLAWFUL to discuss sensitive information that is contained in these records (such as FAMILY PLANNING, MENTAL HEALTH or SUBSTANCE ABUSE) with the minor patient's parent or other person without the patient's specific authorization.[facility] Allergies Active Allergy Reactions Criticality Noted Date Comments Prednisone Anxiety,Dizziness,Lawson llucina tions,Headache,Intolerance - Will Not Trigger Allergy Alert,Other (See Comments),Palpitations,Phot osensitivity,Tinnitus,Unkno wn 09/22/2016 Induces psychosis Medications fluoride, sodium, (SF 5000 PLUS) 1.1 % creaIndications:E namel caries Avalon twice daily with toothpaste then expectorate. Do not rinse. 51 g 3 2 Active amoxicillin-pot clavulanate (AUGMENTIN) 875-125 mg per tabletIndications :Symptomatic periapical periodontitis Take 1 Tablet by mouth 2 (two) times daily for 7 days 14 Tablet 5 025 ibuprofen 400 mg tabletIndications :Symptomatic periapical periodontitis Take 1 Tablet by mouth 4 (four) times daily as needed for pain for up to 5 days 20 Tablet 5 025 Active Problems No known active problems Encounters Date Type Department Care Team Description 06/23/2024 1:40 PM EST Office Visit [facility] [id number] [place] [id number] Mary Hogue, DMD Tooth missing, unspecified edentulism (Primary Dx) 06/21/2024 1:00 PM EST Office Visit [facility] [address] [place] [address] Mary Hogue, DMD Tooth missing, unspecified edentulism (Primary Dx) 06/16/2024 1:00 PM EST Office Visit [facility] [address] [place] [phone] Sotomayor JorgeKatelynn, DMD Symptomatic periapical periodontitis (Primary Dx) 05/18/2024 1:40 PM EST Office Visit [facility] [address] [place] [address] Daniel Hammond RHD Encounter for dental examination (Primary Dx); Caries of enamel (incipient) 05/18/2024 Travel from Last 3 Months Social History Tobacco Use Types Packs/Day Years Used Date Smoking Tobacco: Former Cigarettes Smokeless Tobacco: Current Tobacco Cessation:Ready to Q uit: Not Asked; Counseling Given: Not Answered Social Connections Answer Date Recorded Connectedness 0 01/20/2024 Financial Resource Strain Answer Date R ecorded Financial Resource Strain 0 2020 Stress Answer Date Recorded Stress 0 12/14/2020 Physical Activity Answer Date Recorded Physical Activity 0 12/14/2020 Food Insecurity Answer Date Recorded Food 0 01/27/2024 Transportation Needs Answer Date Record ed Transportation 0 12/14/2020 Housing Stability Answer Date Recorded Housing 0 12/14/2020 Safety and Environment Answer Date Norbert rded Safety 0 12/14/2020 Utilities Answer Date Recorded Utilities 0 12/14/2020 Employment Answer Date Recorded Stress 0 01/20/2024 Comments Unknown Sex and Gender Information Value Date Recorded Sex Assigned at Female 07/19/2022 6:55 AM PDT Legal Sex Female 8:30 AM PST Gender Identity Female 07/19/2022 6:55 AM PDT Sexual Orientation Straight 07/19/2022 6: 55 AM PDT Last Filed Vital Signs Vital Sign Reading Time Taken Comments Blood Pressure 140/102 06/23/2024 2:07 PM EST Pulse 90 06/23/2024 2:07 PM EST Temperature - - Respiratory Rate - - Oxygen Saturation - - Inhaled Oxygen Concentration - - Weight - - Height - - Body Mass Index - - Plan of Treatment Upcoming Encounters Date Type Department Care Team (Late st Contact Info) Description 11/20/2024 10:20 AM EDT Office Visit [facility] [address] [place] [phone] Daniel Hammond, RHD [address] [place] [address] Health Maintenance Due Date Last Done Comments Diabetes Screening 1966 HPV Screening 1966 Pap + HPV 1966 Tobacco Cessation Counseling (#1) 1966 Cervical Cancer Screening 1987 Pap Smear 1987 Breast Cancer Screening (Mammogram) 2006 CT Colonography 2011 Colonoscopy 2011 Colorectal Cancer Screening 2011 FIT/gFOBT 2011 Fecal DNA 2011 Flexible Sigmoidoscopy 2011 Imm-Zoster, Recombinant (1 of 2) 02/24/2016 [id number] ( season) 2024 Imm-Influenza (#1) 2024 02/02/2020, 03/16/2016 Alcohol and Drug Screen 05/03/2024 Depression Annual Screen 05/03/2024 Dental BW 05/20/2025 05/18/2024, 05/2022, 10/21/2022, Additional history exists Dental Examination 05/20/2025 05/18/2024, 1 06/03/2022, 10/21/2022, Additional history exists Dental Perio Charting 05/20/2025 05/18/2024 , 04/02/2023, 04/07/2022, Additional history exists Dental Prophy 05/20/2025 05/18/2024, 1205/2022, 10/21/2022, Additional history exists Hypertension Screening (#1) 06/23/2025 Lipid Screening 07/25/2025 07/25/2020, 05/17/2019 Dental FMX/Pano 01/23/2027 01/21/2022 Imm-DTaP/Tdap/Td (2 - Td or Tdap) 04/01/2027 017 Imm-Hepatitis B Completed 10/18/2017, 05/03, 04/01/2017 HIV Screening Completed 11/25/2017 Hepatitis C Screening Completed 11/25/2017 Cervical Ablation/Cold-Knife Conization Discontinued Cervical Cryotherapy Discontinued Colposcopy Discontinued Endometrial Biopsy Discontinued Excision/Leep Discontinued HPV Genotyping Discontinued Vaginal Pap Discontinued Vulvoscopy Discontinued Procedures Procedure Name Priority Date/Time Associated Diagnosis Comments CASE PRESENTATION SUBS DTL & EXTENSIVE TX PLN Routine 06/23/2024 1:40 PM EST Tooth missing, unspecified edentulism 8 REPAIR RESIN PARTIAL DENTURE BASE MAXILLARY Routine 06/23/2024 1:40 PM EST Tooth missing, unspecified edentulism 19 RELINE MANDIBULAR PARTIAL DENTURE INDIRECT Routine 06/23/2024 1:40 PM EST Tooth missing, unspecified edentulism 29 REPAIR OR REPLACE BROKEN CLASP - PER TOOTH Routine 06/23/2024 1:40 PM EST Tooth missing, unspecified edentulism 20 REPAIR OR REPLACE BROKEN CLASP - PER TOOTH Routine 06/23/2024 1:40 PM EST Tooth missing, unspecified edentulism REMOVABLE PARTIAL DENTURE - IN PROCESS Routine 06/21/2024 1:00 PM EST Tooth missing, unspecified edentulism 22 L RESIN-BASED COMPOSITE ONE SURFACE ANTERIOR Routine 06/16/2024 1:00 PM EST Symptomatic periapical periodontitis CASE PRESENTATION SUBS DTL & EXTENSIVE TX PLN Routine 06/16/2024 1:00 PM EST Symptomatic periapical periodontitis INTRAORAL - PERIAPICAL EACH ADD RADIOGRAPH IMAGE Routine 06/16/2024 1:00 PM EST Symptomatic periapical periodontitis INTRAORAL - PERIAPICAL FIRST RADIOGRAPHIC IMAGE Routine 06/16/2024 1:00 PM EST Symptomatic periapical periodontitis 22 ENDODONTIC THERAPY ANTERIOR TOOTH Routine 06/16/2024 1:00 PM EST Symptomatic periapical periodontitis 22 PULPAL DEBRIDEMENT PRIMARY AND PERMANENT TEETH Routine 06/16/2024 1:00 PM EST Symptomatic periapical periodontitis PERIODIC ORAL EVALUATION ESTABLISHED PATIENT Routine 05/18/2024 1:40 PM EST Caries of enamel (incipient) Encounter for dental examination DENTAL CASE MANAGEMENT - MOTIVATIONAL INTV Routine 05/18/2024 1:40 PM EST Caries of enamel (incipient) Encounter for dental examination PROPHYLAXIS - ADULT Routine 05/18/2024 1 :40 PM EST Caries of enamel (incipient) Encounter for dental examination COMP PERIODONTAL EVALUATION - NEW/EST PATIENT Routine 05/18/2024 1:40 PM EST Caries of enamel (incipient) Encounter for dental examination BITEWINGS - FOUR RADIOGRAPHIC IMAGES Routine 05/18/2024 1:40 PM EST Caries of enamel (incipient) Encounter for dental examination CARIES RISK ASSESSMENT & DOC FINDING HIGH RISK Routine 05/18/2024 1:40 PM EST Caries of enamel (incipient) Encounter for dental examination NUTRITIONAL COUNSELING CONTROL OF DENTAL DISEASE Routine 05/18/2024 1:40 PM EST Caries of enamel (incipient) Encounter for dental examination ORAL HYGIENE INSTRUCTIONS Routine 05/18/2024 1:40 PM EST Caries of enamel (incipient) Encounter for dental examination ORAL CANCER SCREENING Routine 05/18/2024 1:40 PM EST Caries of enamel (incipient) Encounter for dental examination 22 INTRAORAL - PERIAPICAL EACH ADD RADIOGRAPH IMAGE Routine 05/18/2024 1:40 PM EST Caries of enamel (incipient) Encounter for dental examination 5 INTRAORAL - PERIAPICAL FIRST RADIOGRAPHIC IMAGE Routine 05/18/2024 1:40 PM EST Caries of enamel (incipient) Encounter for dental examination CASE PRESENTATION SUBS DTL & EXTENSIVE TX PLN Routine 05/18/2024 1:40 PM EST Caries of enamel (incipient) Encounter for dental examination Full INTRAORAL - COMP SERIES OF RADIOGRAPHIC IMAGES Routine 01/21/2022 1:00 PM EDT Gingivitis, chronic, plaque induced from Last 3 Months or Most Recently Relevant to Health Maintenance Insurance [place]
--- OUTSIDE RECORDS SUMMARY | 2024-07-07 11:10 | XMS_ITS | Encounter Summary ---
Author Organization [facility] Address [address] [place] [address] Care Team Providers Care Business Editor Name Role Phone Unavailable Primary Care Provider Unavailabl e Encounter Details Date Type Department Care Team ([facility] st Contact Info) Description 06/21/2024 1:00 PM EST Office Visit [facility] [address] [place] [phone] Mary Hogue, DMD [address] [place] [address] Tooth missing, unspecified edentulism (Primary Dx) Social History Tobacco Use Types Packs/Day Years Used Date Smoking Tobacco: Former Cigarettes Smokeless Tobacco: Current Social Connections Answer Date Recorded Connectedness 0 [...] Orientation Straight 07/19/2022 6: 55 AM PDT documented as of this encounter Progress Notes * Mary Hogue DMD - 06/21/2024 1:34 PM EST Dental Removable - Impressions for repair and reline SUBJECTIVE: Zuleima Bradford, 59 year old female, presents alone for Maxillary Resin RPD and Mandibular Resin RPD Final Impressions. Endoscopy Technican: No CC: loose l partial and broken U partial labial flange OBJECTIVE: RMHx: Yes Vitals: ASSESSMENT: Dx: K08.409 Tooth missing, unspecified edentulism (primary encounter diagnosis) Dx Details (Clinical Decision-Making): 1) U partial broken labial flange on #8; 2) L partial is loose, recommend reline and replacement of clasps on 320 and 29. PLAN: Informed Consent/PARQ (Procedure, Alternatives, Risks, Questions): Patient confirms informed consent using PARQ. Dental procedures in this visit [id number] - REMOVABLE PARTIAL DENTURE - IN PROCESS (Completed) Service provider: Mary Hogue DMD Billing provider: Mary Hogue DMD Wash up and picket labor union impression of L arch; picket labor union impression on U arch, both with partials. Post-Op Information Given: verbal Referral: No orders of the following type(s) were placed in this encounter: Referral. Rx: Case sent to DESIGN for: ) U partial repair; 2) L partial reline and add clasps (metal) on #20 and 29. Behavior: Excellent DA: Shaunna Smith NV: Treatment - Denture Visit/delivery documented in this encounter Miscellaneous Notes * Patient Instructions - Mayr Hogue DMD - 06/21/2024 1:27 PM EST If you are not able to keep your appointment please call 24-48 hours before your appointment to cancel or reschedule. documented in this encounter Plan of Treatment Upcoming Encounters Date Type Department Care Team (Late st Contact Info) Description 11/20/2024 10:20 AM EDT Office Visit [address] [address] Daniel Hammond, Nathaniel [address] [place] [address] documented as of this encounter Procedures Procedure Name Priority Date/Time Associated Diagnosis Comments REMOVABLE PARTIAL DENTURE - IN PROCESS Routine 06/21/2024 1:00 PM EST Tooth missing, unspecified edentulism documented in this encounter Visit Diagnoses Diagnosis Tooth missing, unspecified edentulism- Primary documented in this encounter
--- OUTSIDE RECORDS SUMMARY | 2024-07-07 11:10 | XMS_ITS | Clinical Summary ---
Author Organization [facility] Address [address] [place] [address] Care Team Providers Care Photography Spotter Name Role Phone Miller Villalpando MD Primary Care Provider [phone] Surgical History Surgery Date Site/Laterality Comments OTHER SURGICAL HISTORY PROCEDURE: ---- OTHER ----; COMMENT: right upper apex lung lobe removed APPENDECTOMY PROCEDURE: HISTORICAL APPENDECTOMY COLONOSCOPY 03/15/2014 [facility] PROCEDURE: HISTORICAL COLONOSCOPY; COMMENT: Two 8-10 mm adenomas; repeat in 3 yrs OTHER SURGICAL HISTORY 03/05/2014 PROCEDURE: MT ESOPHAGOSCOPY FLEXIBLE TRANSORAL DIAGNOSTIC; COMMENT: small HH; [...] high-fiber diet COLONOSCOPY W/ POLYPECTOMY 09/09/2017 PROCEDURE: MT COLSC FLX W/RMVL OF TUMOR POLYP LESION SNARE TQ; COMMENT: 12 small polyps, all adenomas; hemorrhoids. Repeat in 3 years under propofol OTHER SURGICAL HISTORY PROCEDURE: IMPLANT BREAST SILICONE/EQ TUBAL LIGATION PROCEDURE: HISTORICAL TUBAL LIGATION OTHER SURGICAL HISTORY PROCEDURE: MT REMOVAL OF LUNG PNEUMONECTOMY Medical History Medical [...] RESULTING AGENCY - 05/28/2020 10:55 AM EST [id number] THINPREP PAP, IMAGED: NEGATIVE FOR SQUAMOUS INTRAEPITHELIAL [...] Recently Relevant to Health Maintenance Care Teams Photography Spotter Relationship Specialty Start Date End Date Miller Villalpando MD [address] [place] [address] PCP - General Internal Medicine 10/14/20
--- OUTSIDE RECORDS SUMMARY | 2024-07-07 11:11 | XMS_ITS | Encounter Summary ---
Author Organization [facility] Address [address] [place] [address] Care Team Providers Care Fur Repair Inspector Name Role Phone Unavailable Primary Care Provider Unavailabl e Reason for Visit * Reason Comments Endodontic Treatment Encounter Details Date Type Department Care Team (Latest Contact Info) Description 06/16/2024 1:00 PM EST Office Visit [facility] [address] [place] [address] Katelynn Lazaro, DMD [address] [place] [address] Symptomatic periapical periodontitis (Primary Dx) Social History Tobacco Use Types [...] Orientation Straight 07/19/2022 6: 55 AM PDT COVID-19 Exposure Response Date Recorded In the last 10 days, have yo u been in contact with someone who was confirmed or suspected to have Coronavirus/COVID-19? No / Unsure 05/18/2024 1:50 PM EST documented as of this encounter Last Filed Vital Signs Vital Sign Reading Time Taken Comments Blood Pressure 112/81 06/16/2024 1:02 PM EST Pulse 92 06/16/2024 1:02 PM EST Temperature - - Respiratory Rate - - Oxygen Saturation - - Inhaled Oxygen Concentration - - Weight - - Height - - Body Mass Index - - documented in this encounter Progress Notes * Katelynn Patel, DMD - 06/16/2024 3:34 PM EST RCT Treatment Zuleima Bradford, 59 year old female, presents alone for RCT Treatment. Curber: No RMHx: Yes Vitals: Vitals: 06/16/24 1302 BP: 112/81 Pulse: 92 Chief Complaint: Chief Complaint Patient presents with Endodontic Treatment Tooth #: 22 Assessment: Visual Inspection: Tooth decoloration and Large samaritan Palpation: Tenderness to palpation and Swelling Percussion: Positive Endo Ice Test: Negative Rad Findings: Periapical radiolucency Diagnosis: Etiopathogenic DX: Deep samaritan Pulpal DX: Pulp necrosis Periapical DX: Symptomatic apical periodontitis Plan: Endodontic treatment of tooth #22 PARQ: Patient confirms informed consent using PARQ, reviewed RCT consent and signed. Additional provider comments: Tooth #21 was scheduled for endodontic treatment however tooth #22 responded positive to percussion, and showed a PARL on the X- Ray. There was sign of intraoral swellingand tenderness to palpation between teeth #22 and #21. Patient was explained that we will proceed with RCT of tooth #22 that definitely needs the treatment. If there is still symptomatology on the left side we will proceed with Rct of tooth #21 also. PROCEDURE: Anesthetics Topical Anesthetic: 20% topical benzocaine Local Anesthetic: 2 carpule 4% prilocaine (Citanest) plain Injection administered: Infiltration, IA Isolation and access: [place] Isolation: Yes Access: routine, pulp tissue removed, calcified chamber Instrumentation and obturation: - Cleaned and shaped with hand and rotary files system: Protaper next - Irrigated/Lubricated with: NaOCl, EDTA - Activation of irrigant: Yes - Dried with paper points - Intracanal medication in this appointment: No - Obturation technique: Hydraulic, single cone - Obturation sealer: Zenseal - Accidents: None Tooth #: 22 Canal Working Length Reference Point Master Apical File Master Cone single 23 mm Incisal X2 X2 Desobturation for dental post: No Zoroastrianism: Pulp chamber was cleaned, surface was edged, adhesive and composite was placed and light cured, occlusion was verified. Instructions: POIG: verbal Pt informed: samaritan is final, no further treatment needed on this tooth at this time Pain Management: Ibuprofen 400 mg Referral: No orders of the following type(s) were placed in this encounter: Referral. Rx: Orders Placed This Encounter Medications amoxicillin-pot clavulanate (AUGMENTIN) 875-125 mg per tablet Sig: Take 1 Tablet by mouth 2 (two) times daily for 7 days Dispense: 14 Tablet Refill: 0 ibuprofen 400 mg tablet Sig: Take 1 Tablet by mouth 4 (four) times daily as needed for pain for up to 5 days Dispense: 20 Tablet Refill: 0 Patient was told to take antibiotics just in case of a flare up. Behavior: Excellent This Visit: Dental procedures in this visit [id number] - PULPAL DEBRIDEMENT PRIMARY AND PERMANENT TEETH 22 (Completed) Service provider: Katelynn Patel DMD Billing provider: Katelynn Patel DMD D3310 - ENDODONTIC THERAPY ANTERIOR TOOTH 22 (Completed) Service provider: Katelynn Patel DMD Billing provider: Katelynn Patel DMD D0220 - INTRAORAL - PERIAPICAL FIRST RADIOGRAPHIC IMAGE (Completed) Service provider: Katelynn Patel DMD Billing provider: Katelynn Patel DMD D0230 - INTRAORAL - PERIAPICAL EACH ADD RADIOGRAPH IMAGE (Completed) Service provider: Katelynn Patel DMD Billing provider: Katelynn Patel DMD D2330 - RESIN-BASED COMPOSITE ONE SURFACE ANTERIOR 22 L (Completed) Service provider: Katelynn Patel DMD Billing provider: Katelynn Patel DMD D9450 - CASE PRESENTATION SUBS DTL & EXTENSIVE TX PLN (Completed) Service provider: Katelynn Patel DMD Billing provider: Katelynn Patel DMD Next Visit: Treatment - Denture adjustment DA: Joceline documented in this encounter Plan of Treatment Upcoming Encounters Date Type Department Care Team (Late st Contact Info) Description 11/20/2024 10:20 AM EDT Office Visit [address] [address] Daniel Hammond RHD [address] [place] [address] documented as of this encounter Procedures Procedure Name Priority Date/Time Associated Diagnosis Comments CASE PRESENTATION SUBS DTL & EXTENSIVE TX PLN Routine 06/16/2024 1:00 PM EST Symptomatic periapical periodontitis 22 ENDODONTIC THERAPY ANTERIOR TOOTH Routine 06/16/2024 1:00 PM EST Symptomatic periapical periodontitis 22 PULPAL DEBRIDEMENT PRIMARY AND PERMANENT TEETH Routine 06/16/2024 1:00 PM EST Symptomatic periapical periodontitis 22 L RESIN-BASED COMPOSITE ONE SURFACE ANTERIOR Routine 06/16/2024 1:00 PM EST Symptomatic periapical periodontitis INTRAORAL - PERIAPICAL EACH ADD RADIOGRAPH IMAGE Routine 06/16/2024 1:00 PM EST Symptomatic periapical periodontitis INTRAORAL - PERIAPICAL FIRST RADIOGRAPHIC IMAGE Routine 06/16/2024 1:00 PM EST Symptomatic periapical periodontitis documented in this encounter Visit Diagnoses Diagnosis Symptomatic periapical periodontitis- Primary documented in this encounter
--- OUTSIDE RECORDS SUMMARY | 2024-07-07 11:11 | XMS_ITS | Encounter Summary ---
Author Organization [facility] Address [address] [place] [address] Care Team Providers Care Rug Drying Machine Operator Name Role Phone Unavailable Primary Care Provider Unavailabl e Encounter Details Date Type Department Care Team (Late st Contact Info) Description 06/23/2024 1:40 PM EST Office Visit [facility] Dental [address] [place] [phone] Mary Hogue, DMD [address] [place] [address] Tooth missing, unspecified edentulism (Primary Dx) Social [...] AM PDT documented as of this encounter Last Filed Vital Signs Vital Sign Reading Time Taken Comments Blood Pressure 140/102 06/23/2024 2:07 PM EST Pulse 90 06/23/2024 2:07 PM EST Temperature - - Respiratory Rate - - Oxygen Saturation - - Inhaled Oxygen Concentration - - Weight - - Height - - Body Mass Index - - documented in this encounter Progress Notes * Mary Hogue DMD - 06/23/2024 2:08 PM EST Dental Removable - Delivery after repair SUBJECTIVE: Zuleima Bradford, 59 year old female, presents with a friend for Maxillary Resin RPD and MandibularResin RPD delivery. Military Science Teacher: No OBJECTIVE: RMHx: Yes, pt has a spinal procedure this morning with sedation; has pain 10/10 on her back as postop. Pt was driven to this office by a friend. Vitals: Vitals: 06/23/24 1407 BP: (!) 140/102 Pulse: 90 Pain Score: 10 - Worst possible pain ASSESSMENT: Dx: K08.409 Tooth missing, unspecified edentulism (primary encounter diagnosis) PLAN: Informed Consent/PARQ (Procedure, Alternatives, Risks, Questions): Patient confirms informed consent using PARQ. Dental procedures in this visit D5630 - REPAIR OR REPLACE BROKEN CLASP - PER TOOTH 20 (Completed) Service provider: Mary Hogue DMD Billing provider: Mary Hogue DMD D5630 - REPAIR OR REPLACE BROKEN CLASP - PER TOOTH 29 (Completed) Service provider: Mary Hogue DMD Billing provider: Mary Hogue DMD D5761 - RELINE MANDIBULAR PARTIAL DENTURE INDIRECT 19 (Completed) Service provider: Mary Hogue DMD Billing provider: Mary Hogue DMD D5612 - REPAIR RESIN PARTIAL DENTURE BASE MAXILLARY 8 (Completed) Service provider: Mary Hogue DMD Billing provider: Mary Hogue DMD D9450 - CASE PRESENTATION SUBS DTL & EXTENSIVE TX PLN (Completed) Service provider: Mary Hogue DMD Billing provider: Mary Hogue DMD Seated Maxillary Resin RPD and Mandibular Resin RPD. Retention is acceptable: yes Checked Occl: Yes Checked VDO/VDR & occlusal plane: Yes Adjustment required: yes - upper partial interproximal contacts to allow insertion without interferences. Pt pleased with fit, occlusion and retention: yes GIVEN PT HER FLEXIBLE OLDER LOWER PARTIAL BACK WITH A NEW (PURPLE) DENTURE CASE AND ADVISED HER TO PLACE ALL PARTIALS TOGETHER WHEN SHE RETURNS HOME TO AVOID LOSING THEM (EXPECTED MEMORY LOSS DUE TO SEDATION MEDICATION) Post-Op Information Given: verbal Referral: No orders of the following type(s) were placed in this encounter: Referral. Rx: No orders of the defined types were placed in this encounter. Behavior: Excellent DA: Shaunna Smith NV: Treatment - Denture Visit/adjustments as needed x recall documented in this encounter Plan of Treatment Upcoming Encounters Date Type Department Care Team (Late st Contact Info) Description 11/20/2024 10:20 AM EDT Office Visit [address] [address] Daniel Hammond Nathaniel [address] [place] [address] documented as of this encounter Procedures Procedure Name Priority Date/Time Associated Diagnosis Comments 8 REPAIR RESIN PARTIAL DENTURE BASE MAXILLARY Routine 06/23/2024 1:40 PM EST Tooth missing, unspecified edentulism CASE PRESENTATION SUBS DTL & EXTENSIVE TX [...] 1:40 PM EST Tooth missing, unspecified edentulism documented in this encounter Visit Diagnoses Diagnosis Tooth missing, unspecified edentulism- Primary documented in this encounter
== END 2024-07-07 11:03 | disposition home or self-care (01) ==
LOC: HO.HPS 09:58
PROVIDERS: Visit Provider Physician Assistant Medical
DX: Z87.891 Personal history of nicotine dependence (principal)
CPT/HCPCS: G0296

== ENCOUNTER 2024-07-07 10:24 | Outpatient (REF) | payer MEDICARE, MEDICAID, SELFPAY ==
--- NOTE | ~2024-07-07 | CT_ITS ---
CLINICAL HISTORY: F17.210 - Nicotine dependence, cigarettes, uncomplicated CT lung cancer screening (LDCT) Comparison: CT/REG/SR - CT CHEST WO IV CON - 07/05/23 08:11 EST Technique: Axial CT images of the chest using low-dose technique. Referring provider counseled the patient on shared decision-making for LDCT screening. Additional counseling was provided on smoking cessation. Effective radiation dose total: DLP 27.9 mGycm, CTDIvol 0.9 mGy. Findings: Lung: Severe centrilobular emphysema. There is herniation of lung into the intercostal space of the right chest wall. Unchanged bilateral apical scarring. Stable possible postsurgical changes of the right upper lobe. 2 mm pulmonary nodule of the left upper lobe series 6, image 40. Coronary artery calcifications: None Limited upper abdomen: Unremarkable Other: Small pericardial effusion. Impression: LungRADS 2 - Benign Appearance: Continue annual screening with low dose Chest CT in 12 months. ##L2# Category 1: Normal; continue annual screening Category 2: Benign appearance or behavior, continue annual screening Category 3: Probably benign, [address] recommended Category 4A: Suspicious, [address] recommended; may consider PET/CT Category 4B: Suspicious, Additional diagnostics and/or tissue sampling recommended Category 4X: Suspicious, Additional diagnostics and/or tissue sampling recommended Category 0: Recalls (incomplete screen due to Incomplete coverage, Noise, Respiratory motion, Expiration, Obscured by acute abnormality) This document has been electronically signed by: Guerrero Mckay MD on 07/10/2024 13:03:07
--- OUTSIDE RECORDS SUMMARY | 2024-07-07 11:40 | XMS_ITS | Clinical Summary ---
Author Organization [facility] Address [address] [place] [address] Care Team Providers Care It Programmer Analyst Name Role Phone Miller Villalpando MD Primary Care Provider [phone] Surgical History Surgery Date Site/Laterality Comments OTHER SURGICAL HISTORY PROCEDURE: ---- OTHER ----; COMMENT: right upper apex lung lobe removed APPENDECTOMY PROCEDURE: HISTORICAL APPENDECTOMY COLONOSCOPY 03/15/2014 [facility] PROCEDURE: HISTORICAL COLONOSCOPY; COMMENT: Two 8-10 mm adenomas; repeat in 3 yrs OTHER SURGICAL HISTORY 03/05/2014 PROCEDURE: [place] ESOPHAGOSCOPY FLEXIBLE TRANSORAL DIAGNOSTIC; COMMENT: small HH; [...] high-fiber diet COLONOSCOPY W/ POLYPECTOMY 09/09/2017 PROCEDURE: [place] COLSC FLX W/RMVL OF TUMOR POLYP LESION SNARE TQ; COMMENT: 12 small polyps, all adenomas; hemorrhoids. Repeat in 3 years under propofol OTHER SURGICAL HISTORY PROCEDURE: IMPLANT BREAST SILICONE/EQ TUBAL LIGATION PROCEDURE: HISTORICAL TUBAL LIGATION OTHER SURGICAL HISTORY PROCEDURE: [place] REMOVAL OF LUNG PNEUMONECTOMY Medical History Medical [...] RESULTING AGENCY - 05/28/2020 10:55 AM EST [id number] THINPREP PAP, IMAGED: NEGATIVE FOR SQUAMOUS INTRAEPITHELIAL [...] Recently Relevant to Health Maintenance Care Teams It Programmer Analyst Relationship Specialty Start Date End Date Miller Villalpando MD [address] [place] [address] PCP - General Internal Medicine 10/14/20
--- OUTSIDE RECORDS SUMMARY | 2024-07-07 11:40 | XMS_ITS | Clinical Summary ---
Author Organization [facility] Address [address] [place] [address] Care Team Providers Care Prepleater Name Role Phone Unavailable Primary Care Provider [...] 5000 PLUS) 1.1 % creaIndications:E namel caries Oaks twice daily with toothpaste then expectorate. Do [...] Description 06/23/2024 1:40 PM EST Office Visit [facility] [address] [place] [phone] Mary Hogue, DMD Tooth missing, unspecified edentulism (Primary Dx) 06/21/2024 1:00 PM EST Office Visit [facility] [address] [place] [address] Mary Hogue, DMD Tooth missing, unspecified edentulism (Primary Dx) 06/16/2024 1:00 PM EST Office Visit [facility] [address] [place] [address] Sotomayor JorgeKatelynn, DMD Symptomatic periapical periodontitis (Primary Dx) 05/18/2024 1:40 PM EST Office Visit [facility] [address] [place] [address] Daniel Hammond RHD Encounter for [...] Description 11/20/2024 10:20 AM EDT Office Visit [facility] [address] [place] [phone] Daniel Hammond, RHD [address] [place] [address] Health Maintenance Due Date Last Done Comments Diabetes Screening 1966 HPV Screening 1966 Pap + HPV 1966 Tobacco Cessation Counseling (#1) 1966 Cervical Cancer Screening 1987 Pap Smear 1987 Breast Cancer Screening (Mammogram) 2006 CT Colonography 2011 Colonoscopy 2011 Colorectal Cancer Screening 2011 FIT/gFOBT 2011 Fecal DNA 2011 Flexible Sigmoidoscopy 2011 Imm-Zoster, Recombinant (1 of 2) 02/24/2016 [id number] ( season) 2024 Imm-Influenza (#1) 2024 02/02/2020, [...] Most Recently Relevant to Health Maintenance Insurance [place]
--- OUTSIDE RECORDS SUMMARY | 2024-07-07 11:41 | XMS_ITS | Encounter Summary ---
Author Organization [facility] Address [address] [place] [address] Care Team Providers Care Position Classification Specialist Name Role Phone Unavailable Primary Care Provider Unavailabl e Reason for Visit * Reason Comments Endodontic Treatment Encounter Details Date Type Department Care Team (Latest Contact Info) Description 06/16/2024 1:00 PM EST Office Visit [facility] [address] [place] [address] Katelynn Lazaro, DMD [address] [place] [address] Symptomatic periapical periodontitis (Primary Dx) Social History [...] old female, presents alone for RCT Treatment. Ms Sql Server Developer: No RMHx: Yes Vitals: Vitals: 06/16/24 1302 BP: 112/81 Pulse: 92 Chief Complaint: Chief Complaint Patient presents with Endodontic Treatment Tooth #: 22 Assessment: Visual Inspection: Tooth decoloration and Large synagogue Palpation: Tenderness to palpation and Swelling Percussion: Positive Endo Ice Test: Negative Rad Findings: Periapical radiolucency Diagnosis: Etiopathogenic DX: Deep synagogue Pulpal DX: Pulp necrosis Periapical DX: Symptomatic [...] X2 X2 Desobturation for dental post: No Holiness: Pulp chamber was cleaned, surface was edged, adhesive and composite was placed and light cured, occlusion was verified. Instructions: POIG: verbal Pt informed: synagogue is final, no further treatment needed on [...] Description 11/20/2024 10:20 AM EDT Office Visit [address] [address] Danile Hammond RHD [address] [place] [address] documented as of this encounter Procedures Procedure [...]
--- OUTSIDE RECORDS SUMMARY | 2024-07-07 11:41 | XMS_ITS | Encounter Summary ---
Author Organization [facility] Address [address] [place] [address] Care Team Providers Care Director Of Scientific Research Name Role Phone Unavailable Primary Care Provider Unavailabl e Encounter Details Date Type Department Care Team (Late st Contact Info) Description 06/23/2024 1:40 PM EST Office Visit [facility] [address] [place] [phone] Mary Hogue, DMD [address] [place] [address] Tooth missing, unspecified edentulism (Primary Dx) Social [...] Maxillary Resin RPD and MandibularResin RPD delivery. Biofuels Plant Superintendent: No OBJECTIVE: RMHx: Yes, pt has a [...] Description 11/20/2024 10:20 AM EDT Office Visit [address] [address] Daniel Hammond Nathaniel [address] [place] [address] documented as of this encounter Procedures Procedure [...]
--- OUTSIDE RECORDS SUMMARY | 2024-07-07 11:41 | XMS_ITS | Encounter Summary ---
Author Organization [facility] Address [address] [place] [address] Care Team Providers Care Clinical Resource Manager Name Role Phone Unavailable Primary Care Provider Unavailabl e Encounter Details Date Type Department Care Team ([facility] st Contact Info) Description 06/21/2024 1:00 PM EST Office Visit [facility] [address] [place] [phone] Mary Hogue, DMD [address] [place] [address] Tooth missing, unspecified edentulism (Primary Dx) Social [...] RPD and Mandibular Resin RPD Final Impressions. Client Portfolio Manager: No CC: loose l partial and broken [...] using PARQ. Dental procedures in this visit [id number] - REMOVABLE PARTIAL DENTURE - IN PROCESS (Completed) Service provider: Mary Hogue DMD Billing provider: Mary Hogue DMD Wash up and steel pickler impression of L arch; steel pickler impression on U arch, both with partials. [...] encounter Miscellaneous Notes * Patient Instructions - Mary Hogue DMD - 06/21/2024 1:27 PM EST If you are not able to keep your appointment please call 24-48 hours before your appointment to cancel or reschedule. documented in this encounter Plan of Treatment Upcoming Encounters Date Type Department Care Team (Late st Contact Info) Description 11/20/2024 10:20 AM EDT Office Visit [address] [address] Daniel Hammond, Nathaniel [address] [place] [address] documented as of this encounter Procedures Procedure Name Priority Date/Time Associated Diagnosis Comments REMOVABLE PARTIAL DENTURE - IN PROCESS Routine 06/21/2024 1:00 PM EST Tooth missing, unspecified edentulism documented in this encounter Visit Diagnoses Diagnosis Tooth missing, unspecified edentulism- Primary documented in this encounter
== END 2024-07-07 10:25 | disposition home or self-care (01) ==
LOC: HO.CT 10:24
PROVIDERS: PCP Internal Medicine; Visit Provider Physician Assistant Medical
DX: Z12.2 Encounter for screening for malignant neoplasm of respiratory organs (principal); F17.210 Nicotine dependence, cigarettes, uncomplicated
CPT/HCPCS: 71271; G0296

== ENCOUNTER → 2024-07-07 10:26 | Outpatient (BNV) | payer MEDICARE, MEDICAID, SELFPAY | PROVIDERS: PCP Internal Medicine; Visit Provider Nuclear Medicine | DX: F17.210 Nicotine dependence, cigarettes, uncomplicated (principal) | CPT/HCPCS: 71271 ==

== ENCOUNTER 2024-07-13 09:13 | Outpatient (AMB) | payer MEDICARE, MEDICAID, SELFPAY ==
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
[2024-07-13 09:23] VITALS: BP 138/70; PULSE 83; TEMP 36.3; O2SAT 96; BMI 25.8
--- OUTSIDE RECORDS SUMMARY | 2024-07-13 10:41 | XMS_ITS | Encounter Summary ---
Author Organization [facility] Address [address] [place] [address] Care Team Providers Care Director Of Valuation Name Role Phone Unavailable Primary Care Provider Unavailabl e Encounter Details Date Type Department Care Team (Late st Contact Info) Description 06/23/2024 1:40 PM EST Office Visit [facility] Dental [address] [place] [phone] Mary Hogue, DMD [address] [place] [address] Tooth missing, unspecified edentulism (Primary Dx) Social [...] Maxillary Resin RPD and MandibularResin RPD delivery. Room Service Waiter/Waitress: No OBJECTIVE: RMHx: Yes, pt has a [...] Description 11/20/2024 10:20 AM EDT Office Visit [address] [address] Daniel Hammond Nathaniel [address] [place] [address] documented as of this encounter Procedures Procedure [...]
--- OUTSIDE RECORDS SUMMARY | 2024-07-13 10:41 | XMS_ITS | Clinical Summary ---
Author Organization [facility] Address [address] [place] [address] Care Team Providers Care Supervisor Hard Candy Name Role Phone Miller Villalpando MD Primary Care Provider [phone] Surgical History Surgery Date Site/Laterality Comments OTHER SURGICAL HISTORY PROCEDURE: ---- OTHER ----; COMMENT: right upper apex lung lobe removed APPENDECTOMY PROCEDURE: HISTORICAL APPENDECTOMY COLONOSCOPY 03/15/2014 [facility] PROCEDURE: HISTORICAL COLONOSCOPY; COMMENT: Two 8-10 mm adenomas; repeat in 3 yrs OTHER SURGICAL HISTORY 03/05/2014 PROCEDURE: TX ESOPHAGOSCOPY FLEXIBLE TRANSORAL DIAGNOSTIC; COMMENT: small HH; [...] high-fiber diet COLONOSCOPY W/ POLYPECTOMY 09/09/2017 PROCEDURE: TX COLSC FLX W/RMVL OF TUMOR POLYP LESION SNARE TQ; COMMENT: 12 small polyps, all adenomas; hemorrhoids. Repeat in 3 years under propofol OTHER SURGICAL HISTORY PROCEDURE: IMPLANT BREAST SILICONE/EQ TUBAL LIGATION PROCEDURE: HISTORICAL TUBAL LIGATION OTHER SURGICAL HISTORY PROCEDURE: TX REMOVAL OF LUNG PNEUMONECTOMY Medical History Medical [...] RESULTING AGENCY - 05/28/2020 10:55 AM EST [id number] THINPREP PAP, IMAGED: NEGATIVE FOR SQUAMOUS INTRAEPITHELIAL [...] Recently Relevant to Health Maintenance Care Teams Supervisor Hard Candy Relationship Specialty Start Date End Date Miller Villalpando MD [address] [place] [address] PCP - General Internal Medicine 10/14/20
--- OUTSIDE RECORDS SUMMARY | 2024-07-13 10:41 | XMS_ITS | Encounter Summary ---
Author Organization [facility] Address [address] [place] [address] Care Team Providers Care Parimutuel Cashier Name Role Phone Unavailable Primary Care Provider Unavailabl e Encounter Details Date Type Department Care Team ([facility] st Contact Info) Description 06/21/2024 1:00 PM EST Office Visit [facility] Dental [address] [place] [phone] Mary Hogue, DMD [address] [place] [address] Tooth missing, unspecified edentulism (Primary Dx) Social [...] RPD and Mandibular Resin RPD Final Impressions. Supervisor Dog License Officer: No CC: loose l partial and broken [...] using PARQ. Dental procedures in this visit [id number] - REMOVABLE PARTIAL DENTURE - IN PROCESS (Completed) Service provider: Mary Hogue DMD Billing provider: Mary Hogue DMD Wash up and pick up attendant impression of L arch; pick up attendant impression on U arch, both with partials. [...] Description 11/20/2024 10:20 AM EDT Office Visit [address] [phone] Daniel Hammond, Nathaniel [address] [place] [address] documented as of this encounter Procedures Procedure Name Priority Date/Time Associated Diagnosis Comments REMOVABLE PARTIAL DENTURE - IN PROCESS Routine 06/21/2024 1:00 PM EST Tooth missing, unspecified edentulism documented in this encounter Visit Diagnoses Diagnosis Tooth missing, unspecified edentulism- Primary documented in this encounter
--- OUTSIDE RECORDS SUMMARY | 2024-07-13 10:41 | XMS_ITS | Clinical Summary ---
Author Organization [facility] Address [address] [place] [address] Care Team Providers Care Reception Clerk Name Role Phone Unavailable Primary Care Provider [...] 5000 PLUS) 1.1 % creaIndications:E namel caries Sandstone twice daily with toothpaste then expectorate. Do [...] Description 06/23/2024 1:40 PM EST Office Visit [id number] [place] [phone] Mary Hogue, DMD Tooth missing, unspecified edentulism (Primary Dx) 06/21/2024 1:00 PM EST Office Visit [facility] [address] [place] [address] Mary Hogue, DMD Tooth missing, unspecified edentulism (Primary Dx) 06/16/2024 1:00 PM EST Office Visit [facility] [address] [place] [address] Sotomayor JorgeKatelynn, DMD Symptomatic periapical periodontitis (Primary Dx) 05/18/2024 1:40 PM EST Office Visit [address] [place] [address] Daniel Hammond RHD Encounter for [...] Description 11/20/2024 10:20 AM EDT Office Visit [address] [place] [phone] Daniel Hammond, RHD [address] [place] [address] Health Maintenance Due Date Last Done Comments Diabetes Screening 1966 HPV Screening 1966 Pap + HPV 1966 Tobacco Cessation Counseling (#1) 1966 Cervical Cancer Screening 1987 Pap Smear 1987 Breast Cancer Screening (Mammogram) 2006 CT Colonography 2011 Colonoscopy 2011 Colorectal Cancer Screening 2011 FIT/gFOBT 2011 Fecal DNA 2011 Flexible Sigmoidoscopy 2011 Imm-Zoster, Recombinant (1 of 2) 02/24/2016 [id number] ( season) 2024 Imm-Influenza (#1) 2024 02/02/2020, [...] Most Recently Relevant to Health Maintenance Insurance [place] DENT[place]
--- OUTSIDE RECORDS SUMMARY | 2024-07-13 10:41 | XMS_ITS | Encounter Summary ---
Author Organization [facility] Address [address] [place] [address] Care Team Providers Care Earth Boring Machine Operator Name Role Phone Unavailable Primary Care Provider Unavailabl e Reason for Visit * Reason Comments Endodontic Treatment Encounter Details Date Type Department Care Team (Latest Contact Info) Description 06/16/2024 1:00 PM EST Office Visit [facility] [address] [place] [address] Katelynn Lazaro, DMD [address] [place] [address] Symptomatic periapical periodontitis (Primary Dx) Social History [...] old female, presents alone for RCT Treatment. Soda Tester: No RMHx: Yes Vitals: Vitals: 06/16/24 1302 BP: 112/81 Pulse: 92 Chief Complaint: Chief Complaint Patient presents with Endodontic Treatment Tooth #: 22 Assessment: Visual Inspection: Tooth decoloration and Large baptism Palpation: Tenderness to palpation and Swelling Percussion: Positive Endo Ice Test: Negative Rad Findings: Periapical radiolucency Diagnosis: Etiopathogenic DX: Deep baptism Pulpal DX: Pulp necrosis Periapical DX: Symptomatic [...] X2 X2 Desobturation for dental post: No Mosque: Pulp chamber was cleaned, surface was edged, adhesive and composite was placed and light cured, occlusion was verified. Instructions: POIG: verbal Pt informed: baptism is final, no further treatment needed on [...] Description 11/20/2024 10:20 AM EDT Office Visit [address] [phone] Daniel Hammond RHD [address] [place] [address] documented as of this encounter Procedures Procedure [...]
== END 2024-07-13 10:02 | disposition home or self-care (01) ==
LOC: HO.HMCH 09:14
PROVIDERS: PCP Internal Medicine
DX: K92.2 Gastrointestinal hemorrhage, unspecified (principal); I10 Essential (primary) hypertension; R05.9 Cough, unspecified; R30.0 Dysuria

== ENCOUNTER 2024-07-13 09:13 | Outpatient (REF) | payer MEDICARE, MEDICAID, SELFPAY ==
[2024-07-13 11:16] LABS: Appearance Urine Clear; Color Urine Yellow; Glucose Urine UA Negative (Negative); Leukocyte Esterase Urine Negative (Negative); Nitrite Urine Negative (Negative); Specific Gravity - Urine <= 1.005 (1.005-1.025); Urine Blood Negative (Negative); Urine Ketones Negative (Negative); Urine Protein Negative (Neg-Trace)
[2024-07-13 11:29] LABS: Influenza A PCR NEGATIVE (Negative); Influenza B PCR NEGATIVE (Negative); Resp Syncy Virus RNA Qual PCR NEGATIVE (Negative); SARS COV2 PCR INHOUSE NEGATIVE (Negative)
[2024-07-13 11:47] LABS: Anion Gap 11 (12-20); Blood Urea Nitrogen 14 mg/dL (9-16); Calcium 9.3 mg/dL (8.4-10.2); Carbon Dioxide 26 mmol/L (22-29); Chloride 110 mmol/L (96-108); Estimated Glomerular Filt Rate 45; Glucose Random 93 mg/dL (60-115); Potassium 3.9 mmol/L (3.3-5.1); Sodium 143 mmol/L (135-145)
--- OUTSIDE RECORDS SUMMARY | 2024-07-13 12:40 | XMS_ITS | Encounter Summary ---
Author Organization [facility] Address [address] [place] [address] Care Team Providers Care Soap Chipper Name Role Phone Celio Marmolejo MD Primary Care Provider [phone] Miller Villalpando Primary Care Provider Unavailabl e Encounter Details Date Type Department Care Team Description 08/15/2019 Stockholder Report Medical Records [address] [place] [address] Diego Hartley MD Social History Tobacco Use [...] on filedocumented in this encounter Care Teams Soap Chipper Relationship Specialty Start Date End Date Celio Marmolejo MD [address] [place] [address] PCP - General Internal Medicine 08/31/16 10/13/20 Miller Villalpando [address] [place] [address] PCP - General Internal Medicine 10/14/20 documented as of this encounter
--- OUTSIDE RECORDS SUMMARY | 2024-07-13 12:40 | XMS_ITS | Encounter Summary ---
Author Organization [facility] Address [address] [place] [address] Care Team Providers Care Circular Sawyer Stone Name Role Phone Celio Marmolejo MD Primary Care Provider [phone] Miller Villalpando Primary Care Provider Unavailabl e Encounter Details Date Type Department Care Team Description 09/14/2017 Orders Only Pulmonology - [address] [place] [address] Mary Ann Ratliff NP Social [...] on filedocumented in this encounter Care Teams Circular Sawyer Stone Relationship Specialty Start Date End Date Celio Marmolejo MD [address] [place] [address] PCP - General Internal Medicine 08/31/16 10/13/20 Miller Villalpando [address] [place] [address] PCP - General Internal Medicine 10/14/20 documented as of this encounter
--- OUTSIDE RECORDS SUMMARY | 2024-07-13 12:40 | XMS_ITS | Encounter Summary ---
Author Organization [facility] Address [address] [place] [address] Care Team Providers Care Gold Miner Name Role Phone Celio Marmolejo MD Primary Care Provider [phone] Miller Villalpando Primary Care Provider Unavailabl e Encounter Details Date Type Department Care Team Description 08/16/2017 [facility] Medical Records [address] [place] [address] Abstract, Provider Social History Tobacco Use Types [...] on filedocumented in this encounter Care Teams Gold Miner Relationship Specialty Start Date End Date Celio Marmolejo MD [address] [place] [address] PCP - General Internal Medicine 08/31/16 10/13/20 Miller Villalpando [address] [place] [address] PCP - General Internal Medicine 10/14/20 documented as of this encounter
--- OUTSIDE RECORDS SUMMARY | 2024-07-13 12:40 | XMS_ITS | Encounter Summary ---
Author Organization [facility] Address [address] [place] [address] Care Team Providers Care Advisory Internship Name Role Phone Celio Marmolejo MD Primary Care Provider [phone] Miller Villalpando Primary Care Provider Unavailabl e Encounter Details Date Type Department Care Team Description 06/22/2019 Care Provider Report Medical Records [address] [place] [address] Diego Hartley MD Social History Tobacco Use [...] on filedocumented in this encounter Care Teams Advisory Internship Relationship Specialty Start Date End Date Celio Marmolejo MD [address] [place] [address] PCP - General Internal Medicine 08/31/16 10/13/20 Miller Villalpando [address] [place] [address] PCP - General Internal Medicine 10/14/20 documented as of this encounter
--- OUTSIDE RECORDS SUMMARY | 2024-07-13 12:40 | XMS_ITS | Encounter Summary ---
Author Organization [facility] Address [address] [place] [address] Care Team Providers Care Interior Design Consultant Name Role Phone Celio Marmolejo MD Primary Care Provider +1 -[phone] Miller Villalpando Primary Care Provider Unavailabl e Reason for Visit * Reason Comments E-prescribe Rx Request Encounter Details Date Type Department Care Team Description 08/29/2019 Refill Adult Medicine [address] [address] Didi Raymundo CNM E-prescribe Rx Request Social [...] Miscellaneous Notes * Telephone Encounter - Brianda Antonio - 09/06/2019 3:03 PM EDT WHEN WAS THE PATIENTS LAST ANNUAL PAINT FACTORY WORKER EXAM? 05/24/18 Does patient have an upcoming [...] the day? NO Pay[place] / Plan: [place] / Product Type: MEDICARE [id number] documented in this encounter Plan of Treatment Not on file documented as of this encounter Visit Diagnoses Not on filedocumented in this encounter Care Teams Interior Design Consultant Relationship Specialty Start Date End Date Celio Marmolejo MD [address] [place] [address] PCP - General Internal Medicine 08/31/16 10/13/20 Miller Villalpando [address] [place] [address] PCP - General Internal Medicine 10/14/20 documented as of this encounter
--- OUTSIDE RECORDS SUMMARY | 2024-07-13 12:40 | XMS_ITS | Encounter Summary ---
Author Organization [facility] Address [address] [place] [address] Care Team Providers Care Adon Name Role Phone Celio Marmolejo MD Primary Care Provider +1 [phone] Miller Villalpando Primary Care Provider Unavailabl e Reason for Visit * Reason Onset Date Comments Provider Call Back 08/30/2017 Encounter Details Date Type Department Care Team Description 08/30/2017 Telephone Podiatry - [place] [address] [place] [address] Ghulam Byrd DPM Provider Call Back Social [...] of Her MRI * Telephone Encounter - Gayla Liz L.P.N. - 09/01/2017 3:10 PM EDT [...] on filedocumented in this encounter Care Teams Adon Relationship Specialty Start Date End Date Celio Marmolejo MD [address] [place] [address] PCP - General Internal Medicine 08/31/16 10/13/20 Miller Villalpando [address] [place] [address] PCP - General Internal Medicine 10/14/20 documented as of this encounter
--- OUTSIDE RECORDS SUMMARY | 2024-07-13 12:40 | XMS_ITS | Encounter Summary ---
Author Organization [facility] Address [address] [place] [address] Care Team Providers Care Legal Director Name Role Phone Celio Marmolejo MD Primary Care Provider +1 [phone] Miller Villalpando Primary Care Provider Unavailabl e Encounter Details Date Type Department Care Team Description 09/21/2019 Child Day Care Teacher Report Medical Records [address] [place] [address] Diego Hartley MD Social History Tobacco Use [...] on filedocumented in this encounter Care Teams Legal Director Relationship Specialty Start Date End Date Celio Marmolejo MD [address] [place] [address] PCP - General Internal Medicine 08/31/16 10/13/20 Miller Villalpando [address] [place] [address] PCP - General Internal Medicine 10/14/20 documented as of this encounter
--- OUTSIDE RECORDS SUMMARY | 2024-07-13 12:40 | XMS_ITS | Clinical Summary ---
Author Organization [facility] Address [address] [place] [address] Care Team Providers Care Magnetic Healer Name Role Phone Miller Villalpando MD Primary Care Provider [phone] Surgical History Surgery Date Site/Laterality Comments OTHER SURGICAL HISTORY PROCEDURE: ---- OTHER ----; COMMENT: right upper apex lung lobe removed APPENDECTOMY PROCEDURE: HISTORICAL APPENDECTOMY COLONOSCOPY 03/15/2014 Zeroogian PROCEDURE: HISTORICAL COLONOSCOPY; COMMENT: Two 8-10 mm adenomas; repeat in 3 yrs OTHER SURGICAL HISTORY 03/05/2014 PROCEDURE: [facility] ESOPHAGOSCOPY FLEXIBLE TRANSORAL DIAGNOSTIC; COMMENT: small HH; [...] high-fiber diet COLONOSCOPY W/ POLYPECTOMY 09/09/2017 PROCEDURE: VA COLSC FLX W/RMVL OF TUMOR POLYP LESION SNARE TQ; COMMENT: 12 small polyps, all adenomas; hemorrhoids. Repeat in 3 years under propofol OTHER SURGICAL HISTORY PROCEDURE: IMPLANT BREAST SILICONE/EQ TUBAL LIGATION PROCEDURE: HISTORICAL TUBAL LIGATION OTHER SURGICAL HISTORY PROCEDURE: [facility] REMOVAL OF LUNG PNEUMONECTOMY Medical History Medical [...] RESULTING AGENCY - 05/28/2020 10:55 AM EST [id number] THINPREP PAP, IMAGED: NEGATIVE FOR SQUAMOUS INTRAEPITHELIAL [...] Recently Relevant to Health Maintenance Care Teams Magnetic Healer Relationship Specialty Start Date End Date Miller Villalpando MD [address] [place] [address] PCP - General Internal Medicine 10/14/20
--- OUTSIDE RECORDS SUMMARY | 2024-07-13 12:40 | XMS_ITS | Encounter Summary ---
Author Organization [facility] Address [address] [place] [address] Care Team Providers Care Small Parts Shaper Operator Name Role Phone Celio Marmolejo MD Primary Care Provider [phone] -[phone] Miller Villalpando Primary Care Provider Unavailabl e Encounter Details Date Type Department Care Team Description 10/05/2019 Registered Medical Transcriptionist Report Medical Records [address] [place] [address] Diego Hartley MD Social History Tobacco Use [...] on filedocumented in this encounter Care Teams Small Parts Shaper Operator Relationship Specialty Start Date End Date Celio Marmolejo MD [address] [place] [address] PCP - General Internal Medicine 08/31/16 10/13/20 Miller Villalpando [address] [place] [address] PCP - General Internal Medicine 10/14/20 documented as of this encounter
--- OUTSIDE RECORDS SUMMARY | 2024-07-13 12:40 | XMS_ITS | Encounter Summary ---
Author Organization [facility] Address [address] [place] [address] Care Team Providers Care Fundraising Manager Name Role Phone Celio Marmolejo MD Primary Care Provider [phone] [phone] Miller Villalpando Primary Care Provider Unavailabl e Encounter Details Date Type Department Care Team Description 06/18/2017 Hospital Medical Records [address] [place] [address] Ghulam Byrd, DPM Social History Tobacco Use [...] on filedocumented in this encounter Care Teams Fundraising Manager Relationship Specialty Start Date End Date Celio Marmolejo MD [address] [place], [place] [phone] PCP - General Internal Medicine 08/31/16 10/13/20 Miller Villalpando [address] [place] [address] PCP - General Internal Medicine 10/14/20 documented as of this encounter
--- OUTSIDE RECORDS SUMMARY | 2024-07-13 12:41 | XMS_ITS | Encounter Summary ---
Author Organization [facility] Address [address] [place] [address] Care Team Providers Care Inspector Outside Production Name Role Phone Celio Marmolejo MD Primary Care Provider [phone] [phone] Miller Villalpando Primary Care Provider Unavailabl e Reason for Visit * Reason Onset Date Comments Pre Op Visit 05/14/2017 Encounter Details Date Type Department Care Team Description 05/14/2017 Telephone Adult Medicine [address] [address] Celio Marmolejo MD [address] [place] [address] Pre Op Visit Social History Tobacco Use Types Packs/Day Years [...] encounter Miscellaneous Notes * Telephone Encounter - Shanta Chacon M.A. - 05/20/2017 1:20 PM EST Wrong pool no in this office * Telephone Encounter - Haylee Felder - 05/20/2017 10:[address] Byrd works at [facility] * Telephone Encounter - Mary Ann Luis L.P.N. - 05/20/2017 9:[address] Byrd is not in this general surg office in [address] [place] [address] * Telephone Encounter - Estefanía Humphries M.A. - 05/14/2017 3:22 PM EST Friona send to [facility]. Thank you * Telephone Encounter - Haylee Felder - 05/14/2017 3:19 PM EST Date of surgery:06/18/17 What surgery is patient having (gall bladder, cataract, appendix, etc...)?: Right foot surgery Surgeon's name: DR. Ghulam Byrd Office phone number of surgeon: [phone] Fax # for surgeons office: NA Where is surgery being performed? [facility] Admitting Diagnosis/problem for surgery: fracture PCP: Celio Marmolejo Did you verify that the insurance below is correct? YES Patients insurance: Payor[place] / Plan[place] / Product Type: MEDICARE [id number] documented in this encounter Plan of Treatment Not on file documented as of this encounter Visit Diagnoses Not on filedocumented in this encounter Care Teams Inspector Outside Production Relationship Specialty Start Date End Date Celio Marmolejo MD [address] [place] [address] PCP - General Internal Medicine 08/31/16 10/13/20 Miller Villalpando [address] [place] [address] PCP - General Internal Medicine 10/14/20 documented as of this encounter
--- OUTSIDE RECORDS SUMMARY | 2024-07-13 12:41 | XMS_ITS | Encounter Summary ---
Author Organization [facility] Address [address] [place] [address] Care Team Providers Care Hot Roll Laminator Name Role Phone Celio Marmolejo MD Primary Care Provider [phone] [phone] Miller Villalpando Primary Care Provider Unavailabl e Encounter Details Date Type Department Care Team Description 04/02/2020 Edge Baster Report Medical Records [address] [place] [address] Erika Hernandes Social History Tobacco Use Types Packs/Day Years [...] on filedocumented in this encounter Care Teams Hot Roll Laminator Relationship Specialty Start Date End Date Celio Marmolejo MD [address] [place] [address] PCP - General Internal Medicine 08/31/16 10/13/20 Miller Villalpando [address] [place] [address] PCP - General Internal Medicine 10/14/20 documented as of this encounter
--- OUTSIDE RECORDS SUMMARY | 2024-07-13 12:41 | XMS_ITS | Encounter Summary ---
Author Organization [facility] Address [address] [place] [address] Care Team Providers Care Government Auditor Name Role Phone Celio Marmolejo MD Primary Care Provider [phone] [phone] Miller Villalpando Primary Care Provider Unavailabl e Encounter Details Date Type Department Care Team Description 05/23/2020 Edge Dyer Report Medical Records [address] [place] [address] Diego Hartley MD Social History Tobacco Use [...] on filedocumented in this encounter Care Teams Government Auditor Relationship Specialty Start Date End Date Celio Marmolejo MD [address] [place] [address] PCP - General Internal Medicine 08/31/16 10/13/20 Miller Villalpando [address] [place] [address] PCP - General Internal Medicine 10/14/20 documented as of this encounter
--- OUTSIDE RECORDS SUMMARY | 2024-07-13 12:41 | XMS_ITS | Encounter Summary ---
Author Organization [facility] Address [address] [place] [address] Care Team Providers Care Conditioning Room Worker Name Role Phone Unavailable Primary Care Provider Unavailabl e Encounter Details Date Type Department Care Team (Late st Contact Info) Description 06/23/2024 1:40 PM EST Office Visit [facility] [address] [place] [phone] Mary Hogue, DMD [address] [place] [address] Tooth missing, unspecified edentulism (Primary Dx) Social [...] Maxillary Resin RPD and MandibularResin RPD delivery. Crepe Machine Operator: No OBJECTIVE: RMHx: Yes, pt has a [...] Description 11/20/2024 10:20 AM EDT Office Visit [address] [address] Daniel Hammond Nathaniel [address] [place] [address] documented as of this encounter Procedures Procedure [...]
--- OUTSIDE RECORDS SUMMARY | 2024-07-13 12:41 | XMS_ITS | Encounter Summary ---
Author Organization [facility] Address [address] [place] [address] Care Team Providers Care Vegetable Cook Name Role Phone Celio Marmolejo MD Primary Care Provider [phone] [phone] Miller Villalpando Primary Care Provider Unavailabl e Reason for Visit * Reason Comments E-prescribe Rx Request Encounter Details Date Type Department Care Team Description 09/01/2020 Refill Adult Medicine - [address] [address] Celio Marmolejo MD [address] [place] [address] E-prescribe Rx Request Social History Tobacco Use [...] - MEDICARE / Plan: MEDICARE FFS $5 [place] [id number] / Product Type: MEDICARE [id number] Insurance ID #: [id number] documented in this encounter Plan of Treatment Not on file documented as of this encounter Visit Diagnoses Not on filedocumented in this encounter Care Teams Vegetable Cook Relationship Specialty Start Date End Date Celio Marmolejo MD [address] [place] [address] PCP - General Internal Medicine 08/31/16 10/13/20 Miller Villalpando [address] [place] [address] PCP - General Internal Medicine 10/14/20 documented as of this encounter
--- OUTSIDE RECORDS SUMMARY | 2024-07-13 12:41 | XMS_ITS | Encounter Summary ---
Author Organization [facility] Address [address] [place] [address] Care Team Providers Care Sample Checker Name Role Phone Celio Marmolejo MD Primary Care Provider [phone] [phone] Miller Villalpando Primary Care Provider Unavailabl e Encounter Details Date Type Department Care Team Description 10/05/2017 Orders Only Podiatry - [place] [address] [place] [address] Ghulam Byrd DPM Osteomyelitis of right foot, [...] C-REACTIVE PROTEIN (10/08/2017 2:17 PM EDT) Pathologist [facility] CRP 0.27 0.08 - 0.80 mg/dL 10/08/2017 5:11 PM EDT [facility] 10/08/2017 2:17 PM EDT 10/08/2017 2:17 PM EDT Ghulam Byrd DPM LAB [facility] [address] [facility] * RBC SEDIMENTATION RATE, NON-AUTO (10/08/2017 2:17 PM EDT) Pathologist [facility] ESR 2 0 - 30 mm/hr 10/08/2017 6:56 PM EDT [facility] 10/08/2017 2:17 PM EDT 10/08/2017 2:17 PM EDT Ghulam FERRAROM LAB Performing Organization Address [facility] Co de Phone Number [address] * CREATININE, BLOOD ASSAY (10/08/2017 2:17 PM EDT) CREAT 1.0 0.7 - 1.5 mg/dL 10/08/2017 5:11 PM EDT [facility] GFR > 60 >60 10/08/2017 5:11 PM T [facility] Comment: If patient is -Syrian, multiply result by 1.21 Chronic Kidney Disease: < 60 ml/min/1.73 square meters Kidney Failure: < 15 ml/min/1.73 square meters 10/08/2017 2:17 PM EDT 10/08/2017 2:17 PM EDT Ghulam FERRAROM LAB Performing Organization Address [facility] Phone Number [address] * (ABNORMAL) CBC (AUTO DIFF PLATELET) (10/08/2017 2:17 PM EDT) WBC 7.0 4.8 - 10.8 x10-3 10/08/2017 4:19 PM EDT [facility] RBC 4.4 3.8 - 4.8 x10-6 10/08/2017 [...] - 32 pg 10/08/2017 4:19 PM EDT [facility] MCHC 32.9 32 - 37 g/dl 10/08/2017 4:19 PM EDT [facility] RDW 13.8 11 - 15 % 10/08/2017 4:19 PM EDT [facility] PLT COUNT 313 130 - 400 x10-3 10/08/2017 4:19 PM EDT [facility] MEAN PLATELET VOLUME 9.8 7 - 11 fl 10/08/2017 4:19 PM EDT [facility] NEUT % 59.1 41 - 85 % 10/08/2017 4:19 PM EDT [facility] LYMPH % 30.1 15 - 48 % 10/08/2017 4:19 PM EDT [facility] MONO % 8.1 0 - 12 % 10/08/2017 4:19 PM EDT [facility] EOS % 2.0 0 - 5 % 10/08/2017 4:19 PM EDT [facility] BASO % 0.7 0 - 2 % 10/08/2017 4:19 PM EDT [facility] 10/08/2017 2:17 PM EDT 10/08/2017 2:17 PM EDT Ghulam Byrd DPM LAB Performing Organization Address City/State/[facility] Co de Phone Number [facility] [address] [facility] * X-RAY EXAM OF FOOT, COMPLETE [...] Primary documented in this encounter Care Teams Sample Checker Relationship Specialty Start Date End Date Celio Marmolejo MD [address] [place] [address] PCP - General Internal Medicine 08/31/16 10/13/20 Miller Villalpando [address] [place] [address] PCP - General Internal Medicine 10/14/20 documented as of this encounter
--- OUTSIDE RECORDS SUMMARY | 2024-07-13 12:41 | XMS_ITS | Encounter Summary ---
Author Organization [facility] Address [address] [place] [address] Care Team Providers Care Media Associate Name Role Phone Celio Marmolejo MD Primary Care Provider [phone] -[phone] Miller Villalpando Primary Care Provider Unavailabl e Reason for Visit * Reason Onset Date Comments Medication 08/10/2018 Encounter Details Date Type Department Care Team Description 08/10/2018 Telephone Pulmonology - [place] [address] [facility] [address] [place] [address] Diego Hartley MD Medication Social [...] on filedocumented in this encounter Care Teams Media Associate Relationship Specialty Start Date End Date Celio Marmolejo MD [address] [place] [address] PCP - General Internal Medicine 08/31/16 10/13/20 Miller Villalpando [address] [place] [address] PCP - General Internal Medicine 10/14/20 documented as of this encounter
--- OUTSIDE RECORDS SUMMARY | 2024-07-13 12:41 | XMS_ITS | Encounter Summary ---
Author Organization [facility] Address [address] [place] [address] Care Team Providers Care Access Rn Name Role Phone Celio Marmolejo MD Primary Care Provider [phone] -[phone] Miller Villalpando Primary Care Provider Unavailabl e Reason for Visit * Reason Onset Date Comments Gynecological Problem 05/27/2020 Encounter Details Date Type Department Care Team Description 05/27/2020 Telephone OBGYN - [address] [address] Cheri Quesada DO Gynecological Problem Social History [...] has the patient had this problem? Pt???s VENETIAN BLIND INSTALLER provider: Cheri Quesada, DO Last menstrual period (LMP) or EDC (due date): N/A documented in this encounter Plan of Treatment Not on file documented as of this encounter Visit Diagnoses Not on filedocumented in this encounter Care Teams Access Rn Relationship Specialty Start Date End Date Celio Marmolejo MD [address] [place] [address] PCP - General Internal Medicine 08/31/16 10/13/20 Miller Villalpando [address] [place] [address] PCP - General Internal Medicine 10/14/20 documented as of this encounter
--- OUTSIDE RECORDS SUMMARY | 2024-07-13 12:41 | XMS_ITS | Encounter Summary ---
Author Organization [facility] Address [address] [place] [address] Care Team Providers Care Facility Sales And Admin Name Role Phone Celio Marmolejo MD Primary Care Provider +1 -[phone] Miller Villalpando Primary Care Provider Unavailabl e Encounter Details Date Type Department Care Team Description 07/16/2020 Fios Line Installer Report Medical Records [address] [place] [address] Adali Lantigua MD Social History Tobacco Use [...] on filedocumented in this encounter Care Teams Facility Sales And Admin Relationship Specialty Start Date End Date Celio Marmolejo MD [address] [place], [place] [phone] PCP - General Internal Medicine 08/31/16 10/13/20 Miller Villalpando [address] [place] [address] PCP - General Internal Medicine 10/14/20 documented as of this encounter
--- OUTSIDE RECORDS SUMMARY | 2024-07-13 12:41 | XMS_ITS | Encounter Summary ---
Author Organization [facility] Address [address] [place] [address] Care Team Providers Care Residential Installer Name Role Phone Celio Marmolejo MD Primary Care Provider +1 -[phone] Miller Villalpando Primary Care Provider Unavailabl e Reason for Visit * Reason Onset Date Comments APPOINTMENT 08/14/2020 PT CANCELLING Encounter Details Date Type Department Care Team Description 08/14/2020 Telephone Cardio PVC POC [address] [facility] [address] [place] [address] Sita Mahoney MD [address] [place] [address] APPOINTMENT (PT CANCELLING) Social History Tobacco Use Types Packs/Day Years [...] have Coronavirus / COVID-19? No / Unsure 07/25/2020 12:57 PM EDT documented as of this encounter Miscellaneous Notes * Telephone Encounter - Dee Adams - 08/14/2020 2:11 PM EDT PT CALLING IN, NEEDS TO CANCEL APPOINTMENT SCHEDULED ON 08/21 @ 730AM. SHE NEEDS TO RESCHEDULE TO ANOTHER DAY AND LATER IN HTE DAY. PLEASE CALL HER AT [phone] OR [phone] TO RESCHEDULE documented in this encounter Plan of Treatment Not on file documented as of this encounter Visit Diagnoses Not on filedocumented in this encounter Care Teams Residential Installer Relationship Specialty Start Date End Date Celio Marmolejo MD [address] [place] [address] PCP - General Internal Medicine 08/31/16 10/13/20 Miller Villalpando [address] [place] [address] PCP - General Internal Medicine 10/14/20 documented as of this encounter
--- OUTSIDE RECORDS SUMMARY | 2024-07-13 12:41 | XMS_ITS | Encounter Summary ---
Author Organization [facility] Address [address] [place] [address] Care Team Providers Care Rotary Drum Tanner Name Role Phone Celio Marmolejo MD Primary Care Provider +1 -[phone] Miller Villalpando Primary Care Provider Unavailabl e Encounter Details Date Type Department Care Team Description 01/13/2018 Orders Only Podiatry - [place] [address] [place] [address] Ghulam Byrd DPM Other chronic osteomyelitis of [...] - 0.80 mg/dL 01/18/2018 3:30 PM EDT [facility] 01/18/2018 1:35 PM EDT 01/18/2018 1:35 PM EDT Ghulam Byrd DPM LAB [employer] [facility] [address] [place] [address] * RBC SEDIMENTATION RATE, NON-AUTO (01/18/2018 1:35 PM EDT) ESR 10 0 - 30 mm/hr 01/18/2018 3:08 PM EDT [facility] 01/18/2018 1:35 PM EDT 01/18/2018 1:35 PM EDT Ghulam Byrd DPM LAB [facility] [address] [facility] * X-RAY EXAM OF FOOT, COMPLETE [...] of osteomyelitis is not excluded. Procedure Note Etsefania Mariscal MD - 01/18/2018 Right foot, 3 [...] (HCC) documented in this encounter Care Teams Rotary Drum Tanner Relationship Specialty Start Date End Date Celio Marmolejo MD [address] [place] [address] PCP - General Internal Medicine 08/31/16 10/13/20 Miller Villalpando [address] [place] [address] PCP - General Internal Medicine 10/14/20 documented as of this encounter
--- OUTSIDE RECORDS SUMMARY | 2024-07-13 12:41 | XMS_ITS | Encounter Summary ---
Author Organization [facility] Address [address] [place] [address] Care Team Providers Care Concrete Pourer Name Role Phone Unavailable Primary Care Provider Unavailabl e Encounter Details Date Type Department Care Team ([facility] st Contact Info) Description 06/21/2024 1:00 PM EST Office Visit [facility] [address] [place] [phone] Mary Hogue, DMD [address] [place] [address] Tooth missing, unspecified edentulism (Primary Dx) Social [...] RPD and Mandibular Resin RPD Final Impressions. It Systems Analyst Consultant: No CC: loose l partial and broken [...] using PARQ. Dental procedures in this visit [id number] - REMOVABLE PARTIAL DENTURE - IN PROCESS (Completed) Service provider: Mary Hogue DMD Billing provider: Mary Hogue DMD Wash up and cotton picker impression of L arch; cotton picker impression on U arch, both with partials. [...] Description 11/20/2024 10:20 AM EDT Office Visit [address] [address] Daniel Hammond, Nathaniel [address] [place] [address] documented as of this encounter Procedures Procedure Name Priority Date/Time Associated Diagnosis Comments REMOVABLE PARTIAL DENTURE - IN PROCESS Routine 06/21/2024 1:00 PM EST Tooth missing, unspecified edentulism documented in this encounter Visit Diagnoses Diagnosis Tooth missing, unspecified edentulism- Primary documented in this encounter
--- OUTSIDE RECORDS SUMMARY | 2024-07-13 12:41 | XMS_ITS | Encounter Summary ---
Author Organization [facility] Address [address] [place] [address] Care Team Providers Care Pit Inspector Name Role Phone Celio Marmolejo MD Primary Care Provider +1 -[phone] Miller Villalpando Primary Care Provider Unavailabl e Reason for Visit * Reason Onset Date Comments Testing 11/22/2019 [facility] Encounter Details Date Type Department Care Team Description 11/22/2019 Telephone Medicine/Pediatrics - [address] [phone] Pretty Salazar NP [address] [place] [address] Testing ([facility]) Social History Tobacco Use Types Packs/Day Years Used Date Smoking Tobacco: Some Days Cigarettes 1 Smokeless Tobacco: Never Comments:3-4 cigarettes a da y Alcohol Use Standard Drinks/Week Comments Yes 0 (1 standard drink = 0.6 oz pur e alcohol) rarely Sex Assigned at Date Recorded Not on file documented as of this encounter Miscellaneous Notes * Telephone Encounter - Arlette Hartmann M.A. - 11/27/2019 9:39 AM EDT Pt informed of message and verbally understands Printed and placed in patient shredder picker * Telephone Encounter - Pretty Salazar NP - 11/27/2019 9:02 AM EDT Please print AND STAMP letter from today for patient to shredder picker in [place]. She is traveling tomorrow AM. * Telephone Encounter - Pretty Salazar NP - 11/27/2019 9:00 AM EDT Pt informed as below: I would like to inform you that the results of your recent SARS-CoV-2 test is negative. A negative test result shows you did not have any evidence of COVID-19 virus in your blood. It is also possible for this test to give a negative result that is incorrect (false negative) in some people with COVID-19 infection. The results are only valid at the point in time in which your blood sample was taken. You could still become infected and must follow CDC guidelines and recommendations for wearing a mask, social distancing and proper hand hygiene. Please feel free to contact me with any questions that you may have. Pretty Salazar NP * Telephone Encounter - Kiah Moore - 11/27/2019 8:08 AM EDT Please Inform patient of below: Received results of covid 19 testing Pt was NEGATIVE Results printed + sent to scanning * Telephone Encounter - Kiah Moore - 11/22/2019 11:15 AM EDT Call placed to [facility] Covid Testing facility. Patient info confirmed: Appt scheduled 11-24-19 at 10:35am at [address] [place] [address] Orders hand faxed to [phone] documented in this encounter Plan of Treatment Not on file documented as of this encounter Visit Diagnoses Not on filedocumented in this encounter Care Teams Pit Inspector Relationship Specialty Start Date End Date Celio Marmolejo MD [address] [place] [address] PCP - General Internal Medicine 08/31/16 10/13/20 Miller Villalpando [address] [place] [address] PCP - General Internal Medicine 10/14/20 documented as of this encounter
--- OUTSIDE RECORDS SUMMARY | 2024-07-13 12:41 | XMS_ITS | Encounter Summary ---
Author Organization [facility] Address [address] [place] [address] Care Team Providers Care Supervisor Engraving Name Role Phone Celio Marmolejo MD Primary Care Provider +1 -[phone] Miller Villalpando Primary Care Provider Unavailabl e Encounter Details Date Type Department Care Team Description 01/11/2018 Release of Information Medical Records [address] [place] [address] Abstract, Provider Social History Tobacco Use Types [...] filedocumented in this encounter Care Teams Supervisor Engraving Relationship Specialty Start Date End Date Celio Marmolejo MD [address] [place] [address] PCP - General Internal Medicine 08/31/16 10/13/20 Miller Villalpando [address] [place] [address] PCP - General Internal Medicine 10/14/20 documented as of this encounter
--- OUTSIDE RECORDS SUMMARY | 2024-07-13 12:41 | XMS_ITS | Encounter Summary ---
Author Organization [facility] Address [address] [place] [address] Care Team Providers Care Trailer Park Manager Name Role Phone Unavailable Primary Care Provider Unavailabl e Reason for Visit * Reason Comments Endodontic Treatment Encounter Details Date Type Department Care Team (Latest Contact Info) Description 06/16/2024 1:00 PM EST Office Visit [facility] [address] [place] [address] Katelynn Lazaro, DMD [address] [place] [address] Symptomatic periapical periodontitis (Primary Dx) Social History [...] old female, presents alone for RCT Treatment. Gaming Associate: No RMHx: Yes Vitals: Vitals: 06/16/24 1302 BP: 112/81 Pulse: 92 Chief Complaint: Chief Complaint Patient presents with Endodontic Treatment Tooth #: 22 Assessment: Visual Inspection: Tooth decoloration and Large anabaptist Palpation: Tenderness to palpation and Swelling Percussion: Positive Endo Ice Test: Negative Rad Findings: Periapical radiolucency Diagnosis: Etiopathogenic DX: Deep anabaptist Pulpal DX: Pulp necrosis Periapical DX: Symptomatic [...] X2 X2 Desobturation for dental post: No Tenriism: Pulp chamber was cleaned, surface was edged, adhesive and composite was placed and light cured, occlusion was verified. Instructions: POIG: verbal Pt informed: anabaptist is final, no further treatment needed on [...] Service provider: Katelynn Patel DMD Billing provider: Kateylnn Patel DMD [id number] - CASE PRESENTATION SUBS DTL & EXTENSIVE TX PLN (Completed) Service provider: Katelynn Patel DMD Billing provider: Katelynn Patel DMD Next Visit: Treatment - Denture adjustment DA: Joceline documented in this encounter Plan of Treatment Upcoming Encounters Date Type Department Care Team (Late st Contact Info) Description 11/20/2024 10:20 AM EDT Office Visit [address] [address] Daniel Hammond RHD [address] [place] [address] documented as of this encounter Procedures Procedure [...]
--- OUTSIDE RECORDS SUMMARY | 2024-07-13 12:41 | XMS_ITS | Encounter Summary ---
Author Organization [facility] Address [address] [place] [address] Care Team Providers Care Doctorate Of Chiropractic Name Role Phone Celio Marmolejo MD Primary Care Provider +1 [phone] Miller Villalpando Primary Care Provider Unavailabl e Reason for Visit * Reason Onset Date Comments PT-1 11/06/2016 Encounter Details Date Type Department Care Team Description 11/06/2016 Telephone Adult Medicine [address] [address] Celio Marmolejo MD [address] [place] [address] PT-1 Social History Tobacco Use Types Packs/Day Years [...] encounter Miscellaneous Notes * Telephone Encounter - Indiana Hylton - 11/06/2016 2:53 PM EDT ERROR documented in this encounter Plan of Treatment Not on file documented as of this encounter Visit Diagnoses Not on filedocumented in this encounter Care Teams Doctorate Of Chiropractic Relationship Specialty Start Date End Date Celio Marmolejo MD [address] [place] [address] PCP - General Internal Medicine 08/31/16 10/13/20 Miller Villalpando [address] [place] [address] PCP - General Internal Medicine 10/14/20 documented as of this encounter
--- OUTSIDE RECORDS SUMMARY | 2024-07-13 12:41 | XMS_ITS | Encounter Summary ---
Author Organization [facility] Address [address] [place] [address] Care Team Providers Care Ends Down Checker Name Role Phone Celio Marmolejo MD Primary Care Provider +1 -[phone] Miller Villalpando Primary Care Provider Unavailabl e Encounter Details Date Type Department Care Team Description 09/22/2016 Release of Information Medical Records [address] [place] [address] Abstract, Provider Social History Tobacco Use Types [...] on filedocumented in this encounter Care Teams Ends Down Checker Relationship Specialty Start Date End Date Celio Marmolejo MD [address] [place], [place] [phone] PCP - General Internal Medicine 08/31/16 10/13/20 Miller Villalpando [address] [place] [address] PCP - General Internal Medicine 10/14/20 documented as of this encounter
--- OUTSIDE RECORDS SUMMARY | 2024-07-13 12:41 | XMS_ITS | Encounter Summary ---
Author Organization [facility] Address [address] [place] [address] Care Team Providers Care Phlebotomy Lab Assistant Name Role Phone Celio Marmolejo MD Primary Care Provider +1 -[phone] Miller Villalpando Primary Care Provider Unavailabl e Reason for Visit * Reason Onset Date Comments Nuclear Stress Testing 03/30/2017 Encounter Details Date Type Department Care Team Description 03/30/2017 Telephone Cardiology - [place] [address] [place], [place] [phone] Sita Mahoney MD [address] [place], [place] [phone] Nuclear Stress Testing Social History Tobacco Use Types Packs/Day Years [...] encounter Miscellaneous Notes * Telephone Encounter - Sita Mahoney MD - 03/30/2017 1:22 PM EST Zuleima tells me that she is overwhelmed and would like to postpone her stress test till after she returns from [place]. While I would prefer she do this sooner rather than later, she is technically only intermediate probability, so it is reasonable to schedule when she gets back in the spring. I explicitly stressed the importance however of going to the ER immediately for persistent chest pain-which she verbalized understanding of. * Telephone Encounter - Marlin Melara - 03/30/2017 10:37 AM EST Patient was called to book a Nuclear Stress Test however patient states she has a lot going on, many appointments to attend where she does not have transportation as it is, and she is overwhelmed . Patient is wondering if its okay to wait until after she returns from [place] in about a month, before she does this test. Please advise Medicare/[employer] No auth Req km 03/23/17 documented in this encounter Plan of Treatment Not on file documented as of this encounter Visit Diagnoses Not on filedocumented in this encounter Care Teams Phlebotomy Lab Assistant Relationship Specialty Start Date End Date Celio Marmolejo MD [address] [place] [address] PCP - General Internal Medicine 08/31/16 10/13/20 Miller Villalpando [address] [place] [address] PCP - General Internal Medicine 10/14/20 documented as of this encounter
--- OUTSIDE RECORDS SUMMARY | 2024-07-13 12:41 | XMS_ITS | Encounter Summary ---
Author Organization [facility] Address [address] [place] [address] Care Team Providers Care Framing Inspector Name Role Phone Celio Marmolejo MD Primary Care Provider +1 -[phone] Miller Villalpando Primary Care Provider Unavailabl e Encounter Details Date Type Department Care Team Description 10/18/2017 Business Doc Medical Records [address] [place] [address] Abstract, Provider Social History Tobacco Use Types [...] on filedocumented in this encounter Care Teams Framing Inspector Relationship Specialty Start Date End Date Celio Marmolejo MD [address] [place] [address] PCP - General Internal Medicine 08/31/16 10/13/20 Miller Villalpando [address] [place] [address] PCP - General Internal Medicine 10/14/20 documented as of this encounter
--- OUTSIDE RECORDS SUMMARY | 2024-07-13 12:41 | XMS_ITS | Clinical Summary ---
Author Organization [facility] Address [address] [place] [address] Care Team Providers Care Charge Account Identification Clerk Name Role Phone Unavailable Primary Care [...] 5000 PLUS) 1.1 % creaIndications:E namel caries [place] twice daily with toothpaste then expectorate. Do [...] Description 06/23/2024 1:40 PM EST Office Visit [place] [address] [place] [phone] Mary Hogue, DMD Tooth missing, unspecified edentulism (Primary Dx) 06/21/2024 1:00 PM EST Office Visit [facility] [address] [place] [address] Mary Hogue, DMD Tooth missing, unspecified edentulism (Primary Dx) 06/16/2024 1:00 PM EST Office Visit [facility] [address] [place] [address] Sotomayor JorgeKatelynn, DMD Symptomatic periapical periodontitis (Primary Dx) 05/18/2024 1:40 PM EST Office Visit [facility] [address] [place] [address] Daniel Hammond RHD Encounter for [...] Description 11/20/2024 10:20 AM EDT Office Visit [facility] [address] [place] [phone] Daniel Hammond, RHD [address] [place] [address] Health Maintenance Due Date Last Done Comments Diabetes Screening 1966 HPV Screening 1966 Pap + HPV 1966 Tobacco Cessation Counseling (#1) 1966 Cervical Cancer Screening 1987 Pap Smear 1987 Breast Cancer Screening (Mammogram) 2006 CT Colonography 2011 Colonoscopy 2011 Colorectal Cancer Screening 2011 FIT/gFOBT 2011 Fecal DNA 2011 Flexible Sigmoidoscopy 2011 Imm-Zoster, Recombinant (1 of 2) 02/24/2016 Xif-PVBZK-31 ( season) 2024 Imm-Influenza (#1) 2024 02/02/2020, [...] Most Recently Relevant to Health Maintenance Insurance [place]
--- OUTSIDE RECORDS SUMMARY | 2024-07-13 12:41 | XMS_ITS | Encounter Summary ---
Author Organization [facility] Address [address] [place] [address] Care Team Providers Care Filler Feeder Name Role Phone Celio Marmolejo MD Primary Care Provider +1 -[phone] Miller Villalpando Primary Care Provider Unavailabl e Encounter Details Date Type Department Care Team Description 11/17/2017 Orders Only Podiatry - [address] [address] Ghulam Byrd DPM Other chronic osteomyelitis of [...] Ghulam Byrd DPM RADIOLOGY Performing Organization Address [facility] de Phone Number SAGAR MONSON OTHER EXTERNAL * RBC SEDIMENTATION RATE, NON-AUTO (11/17/2017 2:27 PM EDT) Pathologist [facility] ESR 20 0 - 30 mm/hr 11/17/2017 7:21 PM EDT [facility] 11/17/2017 2:27 PM EDT 11/17/2017 2:27 PM EDT Ghulam Byrd DPM LAB Performing Organization Address [facility] de Phone Number [place] [phone] [facility] * C-REACTIVE PROTEIN HIGH SENSITIVITY (11/17/2017 2:27 PM EDT) Pathologist [facility] CARDIO CRP- HIGH SENSITIVE 16.4 mg/L 11/17/2017 8:13 PM EDT [email or web address] Comment: Cardio CRP Relative Risk Categories Low [...] Ghulam Byrd DPM LAB Performing Organization Address [facility] de Phone Number [email or web address] * (ABNORMAL) CBC (AUTO DIFF PLATELET) (11/17/2017 2:27 PM EDT) WBC 5.4 4.8 - 10.8 x10-3 11/17/2017 5:56 PM EDT [facility] RBC 3.9 3.8 - 4.8 x10-6 11/17/2017 5:56 PM EDT [facility] HGB 12.7 11.5 - 16.0 g/dl 11/17/2017 5:56 PM EDT [facility] HCT 39.0 35 - 47 % 11/17/2017 5:56 PM EDT [facility] MCV 101.0(H) 79 - 98 fl 11/17/2017 5:56 PM EDT [facility] MCH 32.9(H) 27 - 32 pg 11/17/2017 5:56 PM EDT [facility] MCHC 32.6 32 - 37 g/dl 11/17/2017 5:56 PM EDT [facility] RDW 14.8 11 - 15 % 11/17/2017 5:56 PM EDT [facility] PLT COUNT 446(H) 130 - 400 x10-3 11/17/2017 5:56 PM EDT [facility] MEAN PLATELET VOLUME 9.9 7 - 11 fl 11/17/2017 5:56 PM EDT [facility] NEUT % 56.2 41 - 85 % 11/17/2017 5:56 PM EDT [facility] LYMPH % 30.7 15 - 48 % 11/17/2017 5:56 PM EDT [facility] MONO % 11.2 0 - 12 % 11/17/2017 5:56 PM EDT [facility] EOS % 1.5 0 - 5 % 11/17/2017 5:56 PM EDT [facility] BASO % 0.4 0 - 2 % 11/17/2017 5:56 PM EDT [facility] 11/17/2017 2:27 PM EDT 11/17/2017 2:27 PM EDT Ghulam Byrd DPM LAB Performing Organization Address City/State/[facility] Co de Phone Number [facility] [address] [facility] documented in this encounter Visit Diagnoses Diagnosis Other chronic osteomyelitis of right foot (HCC)- Primary Other chronic osteomyelitis of right foot (HCC) documented in this encounter Care Teams Filler Feeder Relationship Specialty Start Date End Date Celio Marmolejo MD [address] [place] [address] PCP - General Internal Medicine 08/31/16 10/13/20 Miller Villalpando [address] [place] [address] PCP - General Internal Medicine 10/14/20 documented as of this encounter
--- OUTSIDE RECORDS SUMMARY | 2024-07-13 12:41 | XMS_ITS | Encounter Summary ---
Author Organization [facility] Address [address] [place] [address] Care Team Providers Care Offshore Wind Operations Manager Name Role Phone Celio Marmolejo MD Primary Care Provider +1 -[phone] Miller Villalpando Primary Care Provider Unavailabl e Reason for Visit * Reason Comments E-prescribe Rx Request Encounter Details Date Type Department Care Team Description 03/02/2019 Refill Pulmonology - [place] [address] [facility] [address] [place] [phone] Dylon Dotson MD [address] [place] [phone] E-prescribe Rx Request Social History Tobacco Use Types Packs/Day Years Used Date Smoking Tobacco: Some Days Cigarettes 1 Smokeless Tobacco: Never Alcohol Use Standard Drinks/Week Comments Yes 0 (1 standard drink = 0.6 oz pur e alcohol) rarely Sex Assigned at Date Recorded Not on file documented as of this encounter Miscellaneous Notes * Telephone Encounter - Gabriela Holland - 03/02/2019 4:11 PM EDT Per patient. She followed Dr. Hartley to his new office. Please close this encounter documented in this encounter Plan of Treatment Not on file documented as of this encounter Visit Diagnoses Diagnosis Chronic obstructive pulmonary disease, unspecified COPD type (HCC) documented in this encounter Care Teams Offshore Wind Operations Manager Relationship Specialty Start Date End Date Celio Marmolejo MD [address] [place] [address] PCP - General Internal Medicine 08/31/16 10/13/20 Miller Villalpando [address] [place] [address] PCP - General Internal Medicine 10/14/20 documented as of this encounter
--- OUTSIDE RECORDS SUMMARY | 2024-07-13 12:41 | XMS_ITS | Encounter Summary ---
Author Organization [facility] Address [address] [place] [address] Care Team Providers Care Tape Editor Name Role Phone Celoi Marmolejo MD Primary Care Provider +1 -[phone] Miller Villalpando Primary Care Provider Unavailabl e Reason for Visit * Reason Comments E-prescribe Rx Request Encounter Details Date Type Department Care Team Description 10/01/2020 Refill Podiatry - [place] [address] [place] [address] Ghulam Byrd DPM E-prescribe Rx Request Social History Tobacco Use [...] on filedocumented in this encounter Care Teams Tape Editor Relationship Specialty Start Date End Date Celio Marmolejo MD [address] [place] [address] PCP - General Internal Medicine 08/31/16 10/13/20 Miller Villalpando [address] [place] [address] PCP - General Internal Medicine 10/14/20 documented as of this encounter
--- OUTSIDE RECORDS SUMMARY | 2024-07-13 12:41 | XMS_ITS | Encounter Summary ---
Author Organization [facility] Address [address] [place] [address] Care Team Providers Care Forging Die Sinker Name Role Phone Celio Marmolejo MD Primary Care Provider +1 -[phone] Miller Villalpando Primary Care Provider Unavailabl e Encounter Details Date Type Department Care Team Description 03/29/2017 Business Doc Medical Records [address] [place] [address] Abstract, Provider Social History Tobacco Use Types [...] on filedocumented in this encounter Care Teams Forging Die Sinker Relationship Specialty Start Date End Date Celio Marmolejo MD [address] [place], [place] [phone] PCP - General Internal Medicine 08/31/16 10/13/20 Miller Villalpando [address] [place] [address] PCP - General Internal Medicine 10/14/20 documented as of this encounter
--- OUTSIDE RECORDS SUMMARY | 2024-07-13 12:41 | XMS_ITS | Encounter Summary ---
Author Organization [facility] Address [address] [place] [address] Care Team Providers Care Regular Senior Care Provider Name Role Phone Celio Marmolejo MD Primary Care Provider +1 -[phone] Miller Villalpando Primary Care Provider Unavailabl e Encounter Details Date Type Department Care Team Description 09/05/2020 Negative Retoucher Report Medical Records [address] [place] [address] Ghulam Byrd, MARIE Social History Tobacco Use Types Packs/Day Years [...] on filedocumented in this encounter Care Teams Regular Senior Care Provider Relationship Specialty Start Date End Date Celio Marmolejo MD [address] [place], [place] [phone] PCP - General Internal Medicine 08/31/16 10/13/20 Miller Villalpando [address] [place] [address] PCP - General Internal Medicine 10/14/20 documented as of this encounter
--- OUTSIDE RECORDS SUMMARY | 2024-07-13 12:41 | XMS_ITS | Encounter Summary ---
Author Organization [facility] Address [address] [place] [address] Care Team Providers Care Clinical Rehab Liaison Name Role Phone Celio Marmolejo MD Primary Care Provider +1 -[phone] Miller Villalpando Primary Care Provider Unavailabl e Reason for Visit * Reason Onset Date Comments Faxed Order 10/01/2017 Encounter Details Date Type Department Care Team Description 10/01/2017 Telephone Podiatry - [place] [address] [place] [address] Ghulam Byrd DPM Faxed Order Social History [...] encounter Miscellaneous Notes * Telephone Encounter - hGulam Byrd DPM - 10/05/2017 1:28 PM EDT X-rays and lab work ordered. I had had already spoke with this patient last Wednesday on the telephonefrom my [place] office * Telephone Encounter - Gayla Liz [...] xray of her foot. Pt requesting new job order clerk offered to speak with the nurse for assistance: YES Response: Patient offered to speak with nurse for assistance and patient agreed. Message forwarded to nurse. documented in this encounter Plan of Treatment Not on file documented as of this encounter Visit Diagnoses Not on filedocumented in this encounter Care Teams Clinical Rehab Liaison Relationship Specialty Start Date End Date Celio Marmolejo MD [address] [place] [address] PCP - General Internal Medicine 08/31/16 10/13/20 Miller Villalpando [address] [place] [address] PCP - General Internal Medicine 10/14/20 documented as of this encounter
--- OUTSIDE RECORDS SUMMARY | 2024-07-13 12:41 | XMS_ITS | Encounter Summary ---
Author Organization [facility] Address [address] [place] [address] Care Team Providers Care Technical Writing Lead/Mgr Name Role Phone Celio Marmolejo MD Primary Care Provider +1 -[phone] Miller Villalpando Primary Care Provider Unavailabl e Encounter Details Date Type Department Care Team Description 12/22/2016 Roller Cleaner Report Medical Records [address] [place] [address] Michela Salazar Social History Tobacco Use Types Packs/Day Years [...] on filedocumented in this encounter Care Teams Technical Writing Lead/Mgr Relationship Specialty Start Date End Date Celio Marmolejo MD [address] [place] [address] PCP - General Internal Medicine 08/31/16 10/13/20 Miller Villalpando [address] [place] [address] PCP - General Internal Medicine 10/14/20 documented as of this encounter
--- OUTSIDE RECORDS SUMMARY | 2024-07-13 12:41 | XMS_ITS | Encounter Summary ---
Author Organization [facility] Address [address] [place] [address] Care Team Providers Care Netbackup Engineer Name Role Phone Celio Marmolejo MD Primary Care Provider +1 -[phone] Miller Villalpando Primary Care Provider Unavailabl e Encounter Details Date Type Department Care Team Description 02/22/2017 Radiologic Technology Instructor Report Medical Records [address] [place] [address] Abstract, Provider Social History Tobacco Use Types [...] on filedocumented in this encounter Care Teams Netbackup Engineer Relationship Specialty Start Date End Date Celio Marmolejo MD [address] [place], [place] [phone] PCP - General Internal Medicine 08/31/16 10/13/20 Miller Villalpando [address] [place] [address] PCP - General Internal Medicine 10/14/20 documented as of this encounter
--- OUTSIDE RECORDS SUMMARY | 2024-07-13 12:41 | XMS_ITS | Encounter Summary ---
Author Organization [facility] Address [address] [place] [address] Care Team Providers Care Interventional Sale Consultant Name Role Phone Miller Villalpando Primary Care Provider Alejandro hinton Encounter Details Date Type Department Care Team Description 10/24/2020 SCAN Medical Records [address] [place] [address] Abstract, Provider Social History Tobacco Use Types [...] on filedocumented in this encounter Care Teams Interventional Sale Consultant Relationship Specialty Start Date End Date Miller Villalpando PCP - General Internal Medicine 10/14/20 documented as of this encounter
--- OUTSIDE RECORDS SUMMARY | 2024-07-13 12:41 | XMS_ITS | Encounter Summary ---
Author Organization [facility] Address [address] [place] [address] Care Team Providers Care Boarder Hand Name Role Phone Celio Marmolejo MD Primary Care Provider [phone] Miller Villalpando Primary Care Provider Unavailabl e Reason for Visit * Reason Comments E-prescribe Rx Request Encounter Details Date Type Department Care Team Description 05/21/2017 Refill Pulmonology - [address] [place] [address] Mary Ann Ratliff NP E-prescribe [...] on filedocumented in this encounter Care Teams Boarder Hand Relationship Specialty Start Date End Date Celio Marmolejo MD [address] [place] [address] PCP - General Internal Medicine 08/31/16 10/13/20 Miller Villalpando [address] [place] [address] PCP - General Internal Medicine 10/14/20 documented as of this encounter
== END 2024-07-13 09:14 | disposition home or self-care (01) ==
LOC: HO.LAB 09:13
PROVIDERS: PCP Internal Medicine
DX: K92.2 Gastrointestinal hemorrhage, unspecified (principal); I10 Essential (primary) hypertension; R05.9 Cough, unspecified; R30.0 Dysuria; R35.89 Other polyuria; R09.89 Other specified symptoms and signs involving the circulatory and respiratory systems
CPT/HCPCS: 0241U; 80048; 81003; 96127; 99212

== ENCOUNTER 2024-07-20 09:30 | Outpatient (REF) | payer MEDICARE, MEDICAID, SELFPAY ==
[2024-07-20 11:05] LABS: Venous Blood Gas Refer to POC result
[2024-07-20 11:07] LABS: VBG Base Excess 2.1 mmol/L; VBG HCO3 29 mmol/L (22-26); VBG pCO2 56 mmHg; VBG pH 7.32 (7.32-7.43); VBG pO2 31 mmHg
[2024-07-20 11:13] LABS: Anion Gap 13 (12-20); Blood Urea Nitrogen 10 mg/dL (9-16); Calcium 9.7 mg/dL (8.4-10.2); Carbon Dioxide 28 mmol/L (22-29); Chloride 109 mmol/L (96-108); Estimated Glomerular Filt Rate 53; Glucose Random 89 mg/dL (60-115); Potassium 4.9 mmol/L (3.3-5.1); Sodium 145 mmol/L (135-145)
[2024-07-20 11:29] LABS: TSH reflex Free T4 0.44 uIU/mL (0.32-4.0)
[2024-07-24 08:24] LABS: Theophylline 7.8
== END 2024-07-20 09:31 | disposition home or self-care (01) ==
LOC: HO.LAB 09:30
PROVIDERS: PCP Internal Medicine; Visit Provider Hospitalist
DX: Z01.811 Encounter for preprocedural respiratory examination (principal); J43.2 Centrilobular emphysema; R91.8 Other nonspecific abnormal finding of lung field; G47.33 Obstructive sleep apnea (adult) (pediatric); J44.9 Chronic obstructive pulmonary disease, unspecified; Z99.89 Dependence on other enabling machines and devices
CPT/HCPCS: 36415; 80048; 80198; 82803; 84443; 99212

== ENCOUNTER 2024-07-20 09:30 | Outpatient (AMB) | payer MEDICARE, MEDICAID, SELFPAY ==
[2024-07-20 09:34] VITALS: BP 98/62; PULSE 78; O2SAT 96; BMI 25.2
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
--- OUTSIDE RECORDS SUMMARY | 2024-07-20 10:27 | XMS_ITS | Encounter Summary ---
Author Organization [facility] Address [address] [place] [address] Care Team Providers Care Tax Economist Name Role Phone Celio Marmolejo MD Primary Care Provider [phone] Miller Villalpnado Primary Care Provider Unavailabl e Reason for Visit * Reason Onset Date Comments Provider Call Back 08/30/2017 Encounter Details Date Type Department Care Team Description 08/30/2017 Telephone Podiatry - [place] [address] [place] [address] Ghulam Byrd DPM Provider Call Back Social [...] on filedocumented in this encounter Care Teams Tax Economist Relationship Specialty Start Date End Date Celio Marmolejo MD [address] [place] [address] PCP - General Internal Medicine 08/31/16 10/13/20 Miller Villalpando [address] [place] [address] PCP - General Internal Medicine 10/14/20 documented as of this encounter
--- OUTSIDE RECORDS SUMMARY | 2024-07-20 10:27 | XMS_ITS | Encounter Summary ---
Author Organization [facility] Address [address] [place] [address] Care Team Providers Care Metal Storage Worker Name Role Phone Celio Marmolejo MD Primary Care Provider [phone] Miller Villalpando Primary Care Provider Unavailabl e Reason for Referral * EXTERNAL (Priority) - Authorized/Booked Specialty Diagnoses / Procedures Referred By Contjennifer t Referred To Contact Infectious Disease Procedures REFERRAL TO INFECTIOUS DISEASE Ghulam Byrd DPM [address] [place] [address] Referral ID Status Reason Start Date Expiration Date V isits Requested Visits Authorized SEE NOTE Authorized/B ooked 09/03/2017 12/07/2017 1 1 Encounter Details Date Type Department Care Team Description 09/03/2017 Orders Only Podiatry - [address] [address] Ghulam Byrd DPM Social History Tobacco Use [...] filedocumented in this encounter Care Teams Metal Storage Worker Relationship Specialty Start Date End Date Celio Marmolejo MD [address] [place] [address] PCP - General Internal Medicine 08/31/16 10/13/20 Miller Villalpando [address] [place] [address] PCP - General Internal Medicine 10/14/20 documented as of this encounter
--- OUTSIDE RECORDS SUMMARY | 2024-07-20 10:27 | XMS_ITS | Encounter Summary ---
Author Organization [facility] Address [address] [place] [address] Care Team Providers Care Continuous Pickling Line Pickler Name Role Phone Celio Marmolejo MD Primary Care Provider [phone] Miller Villalpando Primary Care Provider Unavailabl e Encounter Details Date Type Department Care Team Description 08/16/2017 [facility] Medical Records [address] [place] [id number] Abstract, Provider Social History Tobacco Use Types [...] on filedocumented in this encounter Care Teams Continuous Pickling Line Pickler Relationship Specialty Start Date End Date Celio Marmolejo MD [address] [place] [address] PCP - General Internal Medicine 08/31/16 10/13/20 Miller Villalpando [address] [place] [address] PCP - General Internal Medicine 10/14/20 documented as of this encounter
--- OUTSIDE RECORDS SUMMARY | 2024-07-20 10:28 | XMS_ITS | Clinical Summary ---
Author Organization [facility] Address [address] [facility] [place] [address] Care Team Providers Care Systems Technologist Name Role Phone Miller Villalpando Primary Care [...] Seizure 09/22/2016 Overview: Neurology (01/28/18): after reviewing [facility] notes, will cosnider AED. Cont amitriptyline 100mg [...] C SCREENING Completed 11/25/2017, 017 Care Teams Systems Technologist Relationship Specialty Start Date End Date Miller Villalpando PCP - General Internal Medicine 10/14/20
--- OUTSIDE RECORDS SUMMARY | 2024-07-20 10:28 | XMS_ITS | Encounter Summary ---
Author Organization [facility] Address [address] [place] [address] Care Team Providers Care Beamer Hand Name Role Phone Celio Marmolejo MD Primary Care Provider [phone] Miller Villalpando Primary Care Provider Unavailabl e Encounter Details Date Type Department Care Team Description 07/09/2020 [facility] Medical Records [address] [place] [address] Abstract, Provider Social History Tobacco Use Types [...] on filedocumented in this encounter Care Teams Beamer Hand Relationship Specialty Start Date End Date Celio Marmolejo MD [address] [place] [address] PCP - General Internal Medicine 08/31/16 10/13/20 Miller Villalpando [address] [place] [address] PCP - General Internal Medicine 10/14/20 documented as of this encounter
--- OUTSIDE RECORDS SUMMARY | 2024-07-20 10:28 | XMS_ITS | Encounter Summary ---
Author Organization [facility] Address [address] [place] [address] Care Team Providers Care Swage Toolsetter Name Role Phone Celio Marmolejo MD Primary Care Provider +1 -[phone] Miller Villalpando Primary Care Provider Unavailabl e Encounter Details Date Type Department Care Team Description 10/12/2018 Telephone Adult [address] [address] Celio Marmolejo MD [address] [place] [address] Social History Tobacco Use Types Packs/Day Years [...] on filedocumented in this encounter Care Teams Swage Toolsetter Relationship Specialty Start Date End Date Celio Marmolejo MD [address] [place] [address] PCP - General Internal Medicine 08/31/16 10/13/20 Miller Villalpando [address] [place] [address] PCP - General Internal Medicine 10/14/20 documented as of this encounter
--- OUTSIDE RECORDS SUMMARY | 2024-07-20 10:28 | XMS_ITS | Encounter Summary ---
Author Organization [facility] Address [address] [place] [address] Care Team Providers Care Textbook Associate Name Role Phone Celio Marmolejo MD Primary Care Provider +1 -[phone] Miller Villalpando Primary Care Provider Unavailabl e Reason for Visit * Reason Comments E-prescribe Rx Request Encounter Details Date Type Department Care Team Description 05/21/2017 Refill Pulmonology - [address] [place] [address] Mary Ann Ratliff NP E-prescribe [...] on filedocumented in this encounter Care Teams Textbook Associate Relationship Specialty Start Date End Date Celio Marmolejo MD [address] [place] [address] PCP - General Internal Medicine 08/31/16 10/13/20 Miller Villalpando [address] [place] [address] PCP - General Internal Medicine 10/14/20 documented as of this encounter
--- OUTSIDE RECORDS SUMMARY | 2024-07-20 10:28 | XMS_ITS | Encounter Summary ---
Author Organization [facility] Address [address] [place] [address] Care Team Providers Care Drilling Superintendent Name Role Phone Celio Marmolejo MD Primary Care Provider +1 -[phone] Miller Villalpando Primary Care Provider Unavailabl e Encounter Details Date Type Department Care Team Description 12/25/2014 Hospital Medical Records [address] [place], [place] [id number] [place] [address] Social History Tobacco Use Types Packs/Day Years [...] Name Priority Date/Time Associated Diagnosis Comments OUTSIDE EKG Routine 12/25/2014 documented in this encounter Results * OUTSIDE EKG (12/25/2014) Provider Abstract CARDIOLOGY documented in this encounter Visit Diagnoses Not on filedocumented in this encounter Care Teams Drilling Superintendent Relationship Specialty Start Date End Date Celio Marmolejo MD [address] [place] [address] PCP - General Internal Medicine 08/31/16 10/13/20 Miller Villalpando [address] [place] [address] PCP - General Internal Medicine 10/14/20 documented as of this encounter
--- OUTSIDE RECORDS SUMMARY | 2024-07-20 10:28 | XMS_ITS | Encounter Summary ---
Author Organization [facility] Address [address] [place] [address] Care Team Providers Care Crusher Name Role Phone Celio Marmolejo MD Primary Care Provider +1 -[phone] Miller Villalpando Primary Care Provider Unavailabl e Encounter Details Date Type Department Care Team Description 05/23/2020 Swimming Pool Serviceperson Report Medical Records [address] [place] [address] Diego Hartley MD Social History Tobacco Use [...] on filedocumented in this encounter Care Teams Crusher Relationship Specialty Start Date End Date Celio Marmolejo MD [address] [place] [address] PCP - General Internal Medicine 08/31/16 10/13/20 Miller Villalpando [address] [place] [address] PCP - General Internal Medicine 10/14/20 documented as of this encounter
--- OUTSIDE RECORDS SUMMARY | 2024-07-20 10:28 | XMS_ITS | Encounter Summary ---
Author Organization [facility] Address [address] [place] [address] Care Team Providers Care Loss Prevention Analyst Name Role Phone Celio Marmolejo MD Primary Care Provider +1 -[phone] Miller Villalpando Primary Care Provider Unavailabl e Reason for Visit * Reason Comments E-prescribe Rx Request Encounter Details Date Type Department Care Team Description 12/03/2017 Refill Pulmonology - [place] [address] [facility] [address] [place] [address] Dylon Dotson MD [address] [place] [address] E-prescribe Rx Request Social History [...] NO Patients current insurance carrier is: Payor: MEDICARE-Adim8 / Plan[place] / Product Type: MEDICARE [id number] documented in this encounter Plan of Treatment Not on file documented as of this encounter Visit Diagnoses Diagnosis Chronic obstructive pulmonary disease, unspecified COPD type (HCC) documented in this encounter Care Teams Loss Prevention Analyst Relationship Specialty Start Date End Date Celio Marmolejo MD [address] [place] [address] PCP - General Internal Medicine 08/31/16 10/13/20 Miller Villalpando [address] [place] [address] PCP - General Internal Medicine 10/14/20 documented as of this encounter
--- OUTSIDE RECORDS SUMMARY | 2024-07-20 10:28 | XMS_ITS | Encounter Summary ---
Author Organization [facility] Address [address] [place] [address] Care Team Providers Care Chocolate Dipper Name Role Phone Celio Marmolejo MD Primary Care Provider +1 -[phone] Miller Villalpando Primary Care Provider Unavailabl e Encounter Details Date Type Department Care Team Description 11/08/2019 End User Support Specialist Report Medical Records [address] [place] [address] Abstract, Provider Social History Tobacco Use Types [...] on filedocumented in this encounter Care Teams Chocolate Dipper Relationship Specialty Start Date End Date Celio Marmolejo MD [address] [place] [address] PCP - General Internal Medicine 08/31/16 10/13/20 Miller Villalpando [address] [place] [address] PCP - General Internal Medicine 10/14/20 documented as of this encounter
--- OUTSIDE RECORDS SUMMARY | 2024-07-20 10:28 | XMS_ITS | Encounter Summary ---
Author Organization [facility] Address [address] [place] [address] Care Team Providers Care Proofreader Name Role Phone Celio Marmolejo MD Primary Care Provider +1 -[phone] Miller Villalpando Primary Care Provider Unavailabl e Reason for Visit * Reason Comments E-prescribe Rx Request Encounter Details Date Type Department Care Team Description 03/02/2019 Refill Pulmonology - [place] [address] [facility] [address] [place] [phone] Dylon Dotson MD [address] [place] [phone] E-prescribe Rx Request Social History Tobacco Use [...] (HCC) documented in this encounter Care Teams Proofreader Relationship Specialty Start Date End Date Celio Marmolejo MD [address] [place] [address] PCP - General Internal Medicine 08/31/16 10/13/20 Miller Villalpando [address] [place] [address] PCP - General Internal Medicine 10/14/20 documented as of this encounter
--- OUTSIDE RECORDS SUMMARY | 2024-07-20 10:28 | XMS_ITS | Encounter Summary ---
Author Organization [facility] Address [address] [place] [address] Care Team Providers Care Estimator Paperboard Boxes Name Role Phone Celio Marmolejo MD Primary Care Provider +1 -[phone] Miller Villalpando Primary Care Provider Unavailabl e Encounter Details Date Type Department Care Team Description 04/02/2020 Dictating Machine Mechanic Report Medical Records [address] [place] [address] Erika Hernandes Social History Tobacco Use Types [...] on filedocumented in this encounter Care Teams Estimator Paperboard Boxes Relationship Specialty Start Date End Date Celio Marmolejo MD [address] [place] [address] PCP - General Internal Medicine 08/31/16 10/13/20 Miller Vlilalpando [address] [place] [address] PCP - General Internal Medicine 10/14/20 documented as of this encounter
--- OUTSIDE RECORDS SUMMARY | 2024-07-20 10:28 | XMS_ITS | Encounter Summary ---
Author Organization [facility] Address [address] [place] [address] Care Team Providers Care Stocking Inspector Name Role Phone Celio Marmolejo MD Primary Care Provider +1 -[phone] Miller Villalpando Primary Care Provider Unavailabl e Encounter Details Date Type Department Care Team Description 06/18/2017 Hospital Medical Records [address] [place] [address] Ghulam Byrd, DPM Social History Tobacco Use [...] on filedocumented in this encounter Care Teams Stocking Inspector Relationship Specialty Start Date End Date Celio Marmolejo MD [address] [place], [place] [phone] PCP - General Internal Medicine 08/31/16 10/13/20 Miller Villalpando [address] [place] [address] PCP - General Internal Medicine 10/14/20 documented as of this encounter
--- OUTSIDE RECORDS SUMMARY | 2024-07-20 10:28 | XMS_ITS | Encounter Summary ---
Author Organization [facility] Address [address] [place] [address] Care Team Providers Care Primary Clinician Name Role Phone Celio Marmolejo MD Primary Care Provider +1 -[phone] Miller Villalpando Primary Care Provider Unavailabl e Encounter Details Date Type Department Care Team Description 12/22/2016 Skin Pass Operator Report Medical Records [address] [place] [address] Michela Salazar Social History Tobacco Use Types [...] on filedocumented in this encounter Care Teams Primary Clinician Relationship Specialty Start Date End Date Celio Marmolejo MD [address] [place] [address] PCP - General Internal Medicine 08/31/16 10/13/20 Miller Villalpando [address] [place] [address] PCP - General Internal Medicine 10/14/20 documented as of this encounter
--- OUTSIDE RECORDS SUMMARY | 2024-07-20 10:28 | XMS_ITS | Encounter Summary ---
Author Organization [facility] Address [address] [place] [address] Care Team Providers Care Fiberglass Technician Name Role Phone Celio Marmolejo MD Primary Care Provider +1 -[phone] Miller Villalpando Primary Care Provider Unavailabl e Encounter Details Date Type Department Care Team Description 05/29/2020 SCAN Medical Records [address] [place] [address] Abstract, Provider Social History Tobacco Use Types [...] on filedocumented in this encounter Care Teams Fiberglass Technician Relationship Specialty Start Date End Date Celio Marmolejo MD [address] [place] [address] PCP - General Internal Medicine 08/31/16 10/13/20 Miller Villalpando [address] [place] [address] PCP - General Internal Medicine 10/14/20 documented as of this encounter
--- OUTSIDE RECORDS SUMMARY | 2024-07-20 10:28 | XMS_ITS | Encounter Summary ---
Author Organization [facility] Address [address] [place] [address] Care Team Providers Care Overlock Sleeve Setter Name Role Phone Celio Marmolejo MD Primary Care Provider +1 -[phone] Miller Villalpando Primary Care Provider Unavailabl e Encounter Details Date Type Department Care Team Description 08/15/2019 Dental Practice Manager Report Medical Records [address] [place] [address] Diego Hartley MD Social History Tobacco Use [...] on filedocumented in this encounter Care Teams Overlock Sleeve Setter Relationship Specialty Start Date End Date Celio Marmolejo MD [address] [place] [address] PCP - General Internal Medicine 08/31/16 10/13/20 Miller Villalpando [address] [place] [address] PCP - General Internal Medicine 10/14/20 documented as of this encounter
--- OUTSIDE RECORDS SUMMARY | 2024-07-20 10:28 | XMS_ITS | Clinical Summary ---
Author Organization [facility] Address [address] [place] [address] Care Team Providers Care Municipal Court Judge Name Role Phone Unavailable Primary Care Provider [...] 5000 PLUS) 1.1 % creaIndications:E namel caries [place] twice daily with toothpaste then expectorate. Do [...] Description 06/23/2024 1:40 PM EST Office Visit [facility] [address] [place] [phone] Mary Hogue, DMD Tooth missing, unspecified edentulism (Primary Dx) 06/21/2024 1:00 PM EST Office Visit [facility] [address] [place] [address] Mary Hogue, DMD Tooth missing, unspecified edentulism (Primary Dx) 06/16/2024 1:00 PM EST Office Visit [facility] [address] [place] [address] Sotomayor JorgeKatelynn, DMD Symptomatic periapical periodontitis (Primary Dx) 05/18/2024 1:40 PM EST Office Visit [facility] [address] [place] [address] Daniel Hammond RHD Encounter for [...] EDT Office Visit [facility] [address] [place] [phone] Daniel Hammond, RHD [address] [place] [address] Health Maintenance Due Date Last Done Comments Diabetes Screening 1966 HPV Screening 1966 Pap + HPV 1966 Tobacco Cessation Counseling (#1) 1966 Cervical Cancer Screening 1987 Pap Smear 1987 Breast Cancer Screening (Mammogram) 2006 CT Colonography 2011 Colonoscopy 2011 Colorectal Cancer Screening 2011 FIT/gFOBT 2011 Fecal DNA 2011 Flexible Sigmoidoscopy 2011 Imm-Zoster, Recombinant (1 of 2) 02/24/2016 [id number] ( season) 2024 Imm-Influenza (#1) 2024 02/02/2020, [...] Most Recently Relevant to Health Maintenance Insurance [place] MEDICAID [place]
--- OUTSIDE RECORDS SUMMARY | 2024-07-20 10:28 | XMS_ITS | Encounter Summary ---
Author Organization [facility] Address [address] [place] [address] Care Team Providers Care Transfer Iron Operator Name Role Phone Celio Marmolejo MD Primary Care Provider +1 -[phone] Miller Villalpando Primary Care Provider Unavailabl e Encounter Details Date Type Department Care Team Description 10/05/2017 Orders Only Podiatry - [place] [address] [place] [address] Ghulam Byrd DPM Osteomyelitis of right foot, [...] - 0.80 mg/dL 10/08/2017 5:11 PM EDT [facility] 10/08/2017 2:17 PM EDT 10/08/2017 2:17 PM EDT Ghulam Byrd DPM [facility] [address] * RBC SEDIMENTATION RATE, NON-AUTO (10/08/2017 2:17 PM EDT) Pathologist [facility] ESR 2 0 - 30 mm/hr 10/08/2017 6:56 PM EDT [facility] 10/08/2017 2:17 PM EDT 10/08/2017 2:17 PM EDT Ghulam FERRAROM LAB Performing Organization Address [facility] Co de Phone Number [address] * CREATININE, BLOOD ASSAY (10/08/2017 2:17 PM EDT) CREAT 1.0 0.7 - 1.5 mg/dL 10/08/2017 5:11 PM EDT [facility] GFR > 60 >60 10/08/2017 5:11 PM T [facility] Comment: If patient is -[place]oz[place], multiply result by 1.21 Chronic Kidney Disease: < 60 ml/min/1.73 square meters Kidney Failure: < 15 ml/min/1.73 square meters 10/08/2017 2:17 PM EDT 10/08/2017 2:17 PM EDT Ghulam FERRAROM LAB Performing Organization Address [facility] Phone Number [address] * (ABNORMAL) CBC (AUTO DIFF PLATELET) (10/08/2017 2:17 PM EDT) WBC 7.0 4.8 - 10.8 x10-3 10/08/2017 4:19 PM EDT [facility] RBC 4.4 3.8 - 4.8 x10-6 10/08/2017 4:19 PM EDT [facility] HGB 14.5 11.5 - 16.0 g/dl 10/08/2017 4:19 PM EDT [facility] HCT 44.1 35 - 47 % 10/08/2017 4:19 PM EDT [facility] MCV 99.8(H) 79 - 98 fl 10/08/2017 4:19 PM EDT [facility] MCH 32.8(H) 27 - 32 pg 10/08/2017 4:19 PM EDT [facility] MCHC 32.9 32 - 37 g/dl 10/08/2017 4:19 PM EDT [facility] RDW 13.8 11 - 15 % 10/08/2017 4:19 PM EDT [facility] PLT COUNT 313 130 - 400 x10-3 10/08/2017 4:19 PM EDT [facility] MEAN PLATELET VOLUME 9.8 7 - 11 fl 10/08/2017 4:19 PM EDT [facility] NEUT % 59.1 41 - 85 % 10/08/2017 4:19 PM EDT [facility] LYMPH % 30.1 15 - 48 % 10/08/2017 4:19 PM EDT [facility] MONO % 8.1 0 - 12 % 10/08/2017 4:19 PM EDT [facility] EOS % 2.0 0 - 5 % 10/08/2017 4:19 PM EDT [facility] BASO % 0.7 0 - 2 % 10/08/2017 4:19 PM EDT [facility] 10/08/2017 2:17 PM EDT 10/08/2017 2:17 PM EDT Ghulam Byrd DPM LAB Performing Organization Address City/State/[facility] Co de Phone Number [facility] [address] * X-RAY EXAM OF FOOT, COMPLETE [...] Primary documented in this encounter Care Teams Transfer Iron Operator Relationship Specialty Start Date End Date Celio Marmolejo MD [address] [place] [address] PCP - General Internal Medicine 08/31/16 10/13/20 Miller Villalpando [address] [place] [address] PCP - General Internal Medicine 10/14/20 documented as of this encounter
--- OUTSIDE RECORDS SUMMARY | 2024-07-20 10:28 | XMS_ITS | Encounter Summary ---
Author Organization [facility] Address [address] [place] [address] Care Team Providers Care President Of [place] Name Role Phone Celio Marmolejo MD Primary Care Provider +1 -[phone] Miller Villalpando Primary Care Provider Unavailabl e Reason for Visit * Reason Onset Date Comments Faxed Order 10/01/2017 Encounter Details Date Type Department Care Team Description 10/01/2017 Telephone Podiatry - [place] [address] [place] [address] Ghulam Byrd DPM Faxed Order Social History [...] patient last Wednesday on the telephonefrom my [place] office * Telephone Encounter - Gayla Liz [...] of her foot. Pt requesting new order tracer offered to speak with the nurse for assistance: YES Response: Patient offered to speak with nurse for assistance and patient agreed. Message forwarded to nurse. documented in this encounter Plan of Treatment Not on file documented as of this encounter Visit Diagnoses Not on filedocumented in this encounter Care Teams President Of [place] Relationship Specialty Start Date End Date Celio Marmolejo MD [address] [place] [address] PCP - General Internal Medicine 08/31/16 10/13/20 Miller Villalpando [address] [place] [address] PCP - General Internal Medicine 10/14/20 documented as of this encounter
--- OUTSIDE RECORDS SUMMARY | 2024-07-20 10:28 | XMS_ITS | Encounter Summary ---
Author Organization [facility] Address [address] [place] [address] Care Team Providers Care Railroad Brake Operator Name Role Phone Celio Marmolejo MD Primary Care Provider +1 -[phone] Miller Villalpando Primary Care Provider Unavailabl e Encounter Details Date Type Department Care Team Description 09/21/2019 Graphic User Interface Designer Report Medical Records [address] [place] [address] Diego Hartley MD Social History Tobacco Use [...] on filedocumented in this encounter Care Teams Railroad Brake Operator Relationship Specialty Start Date End Date Celio Marmolejo MD [address] [place] [address] PCP - General Internal Medicine 08/31/16 10/13/20 Miller Villalpando [address] [place] [address] PCP - General Internal Medicine 10/14/20 documented as of this encounter
--- OUTSIDE RECORDS SUMMARY | 2024-07-20 10:28 | XMS_ITS | Encounter Summary ---
Author Organization [facility] Address [address] [place] [address] Care Team Providers Care Receiving Teller Name Role Phone Celio Marmolejo MD Primary Care Provider +1 -[phone] Miller Villalpando Primary Care Provider Unavailabl e Reason for Visit * Reason Comments E-prescribe Rx Request Encounter Details Date Type Department Care Team Description 11/28/2017 Refill Pulmonology - [address] [place] [address] Diego Hartley MD E-prescribe Rx [...] / [place] / Product Type: MEDICARE [id number] * Telephone Encounter - Niurka Mullen - [...] / [place] / Product Type: [place]ICARE [id number] documented in this encounter Plan of Treatment Not on file documented as of this encounter Visit Diagnoses Diagnosis Chronic obstructive pulmonary disease, unspecified COPD type (HCC) documented in this encounter Care Teams Receiving Teller Relationship Specialty Start Date End Date Celio Marmolejo MD [address] [place] [address] PCP - General Internal Medicine 08/31/16 10/13/20 Miller Villalpando [address] [place] [address] PCP - General Internal Medicine 10/14/20 documented as of this encounter
--- OUTSIDE RECORDS SUMMARY | 2024-07-20 10:28 | XMS_ITS | Encounter Summary ---
Author Organization [facility] Address [address] [place] [address] Care Team Providers Care Industrial Health And Safety Professor Name Role Phone Celio Marmolejo MD Primary Care Provider +1 [phone] Miller Villalpando Primary Care Provider Unavailabl e Encounter Details Date Type Department Care Team Description 05/11/2017 Orders Only Adult Medicine [address] [id number] Celio Marmolejo MD [address] [place] [address] Preoperative examination; Screening for deficiency anemia; snf current use of anticoagulant therapy Social History Tobacco Use Types Packs/Day Years [...] documented as of this encounter Results * URINALYSIS, COMPLETE (05/25/2017 10:15 AM EST) SPECIFIC GRAVITY, URINE <= 1.005 1.005 - 1.030 05/25/2017 2:38 PM EST [facility] PH, URINE 6.5 5 - 8 05/25/2017 2:38 PM EST [facility] PROTEIN, URINE NEGATIVE <=TRACE mg/dL 05/25/2017 2:38 PM EST [facility] GLUCOSE, URINE (UA) NEGATIVE NEGATIVE mg/dL 05/25/2017 2:38 PM [facility] KETONE, URINE NEGATIVE NEGATIVE mg/dL 05/25/2017 2:38 PM [facility] BILIRUBIN URINE NEGATIVE NEGATIVE 05/25/2017 2:38 PM [facility] UROBILINOGEN, URINE 0.2 0.2 - 1.0 E.U./dL 05/25/2017 2:38 PM [facility] BLOOD, URINE NEGATIVE NEGATIVE 05/25/2017 2:38 PM [facility] NITRITE,URINE NEGATIVE NEGATIVE 05/25/2017 2:38 PM [facility] LEUKOCYTE ESTERASE, URINE NEGATIVE NEGATIVE 05/25/2017 2:38 PM [facility] RBC-Urine NONE 0 - 4 /hpf 05/25/2017 4:03 PM [facility] WBC, URINE NONE 0 - 4 /hpf 05/25/2017 4:03 PM [facility] 05/25/2017 10:1 5 AM EST 05/25/2017 10:16 AM EST Celio Marmolejo MD LAB Performing Organization Address [facility] Co de Phone Number [address] * THROMBOPLASTIN TIME, PARTIAL (05/18/2017 1:54 PM EST) PTT 32.6 20.6 - 33.6 SEC 05/18/2017 5:31 PM [facility] Comment: Please note adjusted APTT (sec) reference range ?? effective 11/01/2015. 05/18/2017 1:54 PM EST 05/18/2017 1:54 PM EST Celio Marmolejo MD LAB Performing Organization Address [facility] Co de Phone Number [address] * PROTHROMBIN TIME (05/18/2017 1:54 PM EST) PT 12.0 11.6 - 15.6 SEC 05/18/2017 4:55 PM [facility] Comment: Please note adjusted PT(sec)normal reference range ?? effective 01/01/15. INR 0.90 05/18/2017 4:55 PM EST [facility] 05/18/2017 1:54 PM EST 05/18/2017 1:54 PM EST Celio Marmolejo MD LAB Performing Organization Address City/State/[facility] Co de Phone Number [facility] [address] [facility] * BASIC METABOLIC PANEL (05/18/2017 1:54 PM EST) Pathologist [facility] GLUCOSE 78 70 - 100 mg/dL 05/18/2017 4:59 PM EST [facility] Comment: Reference range applicable to fasting specimens only Based on recommendations from the ADA and AACE, the fasting glucose reference range has been changed to 70-100 mg/dL. ??This change is effective September 16, 2009 BUN 7 5 - 25 mg/dL 05/18/2017 4:59 PM [facility] CREAT 1.0 0.7 - 1.5 mg/dL 05/18/2017 4:59 PM [facility] GFR > 60 >60 05/18/2017 4:59 PM [facility] Comment: If patient is -Mongolian, multiply result by 1.21 Chronic Kidney Disease: < 60 ml/min/1.73 square meters Kidney Failure: < 15 ml/min/1.73 square meters Sodium 138 133 - 145 mEq/L 05/18/2017 4:59 PM EST [facility] Potassium 4.5 3.5 - 5.5 mEq/L 05/18/2017 4:59 PM EST [facility] Chloride 98 96 - 108 mEq/L 05/18/2017 4:59 PM EST [facility] CO2 29.2 21.0 - 32.0 mEq/L 05/18/2017 4:59 PM EST [facility] CALCIUM 9.3 8.5 - 10.5 mg/dL 05/18/2017 4:59 PM EST [facility] 05/18/2017 1:54 PM EST 05/18/2017 1:54 PM EST Celio Marmolejo MD LAB [facility] [address] [facility] * (ABNORMAL) CBC (AUTO DIFF PLATELET) (05/18/2017 1:54 PM EST) WBC 7.9 4.8 - 10.8 x10-3 05/18/2017 4:29 PM EST [facility] RBC 3.9 3.8 - 4.8 x10-6 05/18/2017 4:29 PM EST [facility] HGB 12.8 11.5 - 16.0 g/dl 05/18/2017 4:29 PM EST [facility] HCT 40.1 35 - 47 % 05/18/2017 4:29 PM EST [facility] MCV 102.3(H) 79 - 98 fl 05/18/2017 4:29 PM EST [facility] MCH 32.7(H) 27 - 32 pg 05/18/2017 4:29 PM EST [facility] MCHC 31.9(L) 32 - 37 g/dl 05/18/2017 4:29 PM EST [facility] RDW 13.4 11 - 15 % 05/18/2017 4:29 PM EST [facility] PLT COUNT 304 130 - 400 x10-3 05/18/2017 4:29 PM EST [facility] MEAN PLATELET VOLUME 10.0 7 - 11 fl 05/18/2017 4:29 PM EST [facility] NEUT % 59.8 41 - 85 % 05/18/2017 4:29 PM EST [facility] LYMPH % 28.5 15 - 48 % 05/18/2017 4:29 PM EST [facility] MONO % 9.1 0 - 12 % 05/18/2017 4:29 PM EST [facility] EOS % 2.0 0 - 5 % 05/18/2017 4:29 PM EST [facility] BASO % 0.6 0 - 2 % 05/18/2017 4:29 PM EST [facility] 05/18/2017 1:54 PM EST 05/18/2017 1:54 PM EST Celio Marmolejo MD LAB Performing Organization Address City/State/[facility] Co de Phone Number [facility] [address] [place] [address] documented in this encounter Visit Diagnoses Diagnosis Preoperative examination Preoperative examination, unspecified Screening for deficiency anemia Screening for other and unspecified deficiency anemia buttermaker helper current use of anticoagulant therapy documented in this encounter Care Teams Industrial Health And Safety Professor Relationship Specialty Start Date End Date Celio Marmolejo MD [address] [place] [address] PCP - General Internal Medicine 08/31/16 10/13/20 Miller Villalpando [address] [place] [address] PCP - General Internal Medicine 10/14/20 documented as of this encounter
--- OUTSIDE RECORDS SUMMARY | 2024-07-20 10:28 | XMS_ITS | Encounter Summary ---
Author Organization [facility] Address [address] [place] [address] Care Team Providers Care Drilling Inspector Name Role Phone Celio Marmolejo MD Primary Care Provider +1 -[phone] Miller Villalpando Primary Care Provider Unavailabl e Encounter Details Date Type Department Care Team Description 09/05/2020 Orders Only Podiatry - [address] [address] Ghulam Byrd, DPM Social History Tobacco Use [...] filedocumented in this encounter Care Teams Drilling Inspector Relationship Specialty Start Date End Date Celio Marmolejo MD [address] [place] [address] PCP - General Internal Medicine 08/31/16 10/13/20 Miller Villalpando [address] [place] [address] PCP - General Internal Medicine 10/14/20 documented as of this encounter
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
--- OUTSIDE RECORDS SUMMARY | 2024-07-20 10:28 | XMS_ITS | Encounter Summary ---
Author Organization [facility] Address [address] [place] [address] Care Team Providers Care Intermodal Owner Operator Truck Driver Name Role Phone Celio Marmolejo MD Primary Care Provider +1 -[phone] Miller Villalpando Primary Care Provider Unavailabl e Encounter Details Date Type Department Care Team Description 07/17/2019 Algorithm Developer Report Medical Records [address] [place] [address] Diego Hartley MD Social History Tobacco Use [...] on filedocumented in this encounter Care Teams Intermodal Owner Operator Truck Driver Relationship Specialty Start Date End Date Celio Marmolejo MD [address] [place] [address] PCP - General Internal Medicine 08/31/16 10/13/20 Miller Villalpando [address] [place] [address] PCP - General Internal Medicine 10/14/20 documented as of this encounter
--- OUTSIDE RECORDS SUMMARY | 2024-07-20 10:28 | XMS_ITS | Encounter Summary ---
Author Organization [facility] Address [address] [place] [address] Care Team Providers Care Lead Security Officer Name Role Phone Celio Marmolejo MD Primary Care Provider [phone] [phone] Miller Villalpando Primary Care Provider Unavailabl e Reason for Visit * Reason Onset Date Comments PT-1 11/06/2016 Encounter Details Date Type Department Care Team Description 11/06/2016 Telephone Adult Medicine [address] [address] Celio Marmolejo MD [address] [place] [address] PT-1 Social History Tobacco Use Types Packs/Day [...] on filedocumented in this encounter Care Teams Lead Security Officer Relationship Specialty Start Date End Date Celio Marmolejo MD [address] [place] [address] PCP - General Internal Medicine 08/31/16 10/13/20 Miller Villalpando [address] [place] [address] PCP - General Internal Medicine 10/14/20 documented as of this encounter
--- OUTSIDE RECORDS SUMMARY | 2024-07-20 10:28 | XMS_ITS | Encounter Summary ---
Author Organization [facility] Address [address] [place] [address] Care Team Providers Care Maintenance Custodian Name Role Phone Celio Marmolejo MD Primary Care Provider +1 [phone] Miller Villalpando Primary Care Provider Unavailabl e Encounter Details Date Type Department Care Team Description 03/01/2020 Hospital Medical Records [address] [place] [address] [facility] Social History Tobacco Use Types Packs/Day Years [...] on filedocumented in this encounter Care Teams Maintenance Custodian Relationship Specialty Start Date End Date Celio Marmolejo MD [address] [place] [address] PCP - General Internal Medicine 08/31/16 10/13/20 Miller Villalpando [address] [place] [address] PCP - General Internal Medicine 10/14/20 documented as of this encounter
--- OUTSIDE RECORDS SUMMARY | 2024-07-20 10:28 | XMS_ITS | Encounter Summary ---
Author Organization [facility] Address [address] [place] [address] Care Team Providers Care Print Developer Name Role Phone Celio Marmolejo MD Primary Care Provider +1 [phone] Miller Villalpando Primary Care Provider Unavailabl e Reason for Visit * Reason Onset Date Comments medication problems 12/16/2017 Encounter Details Date Type Department Care Team Description 12/16/2017 Telephone Pulmonology - [address] [place] [address] Diego Hartley MD medication problems Social History Tobacco Use Types Packs/Day Years Used Date Smoking Tobacco: Former Cigarettes 1 Q uit: 10/14/2017 Smokeless Tobacco: Never Alcohol Use Standard Drinks/Week Comments Yes 0 (1 standard drink = 0.6 oz pur e alcohol) rarely Sex Assigned at Date Recorded Not on file documented as of this encounter Miscellaneous Notes * Telephone Encounter - Diego Hartley MD - 12/16/2017 4:21 PM EDT Called, will picker symbicort 80/4.5 * Telephone Encounter - Yvonne Miranda M.A. - 12/16/2017 2:35 PM EDT Forward to to advise. * Telephone Encounter - Radha Garcia - 12/16/2017 2:24 PM EDT Pt said the new medication Symbicort she is using gave her a reaction making her manic like crazy she wants a call back COOPER pt has not used it today documented in this encounter Plan of Treatment Not on file documented as of this encounter Visit Diagnoses Not on filedocumented in this encounter Care Teams Print Developer Relationship Specialty Start Date End Date Celio Marmolejo MD [address] [place] [address] PCP - General Internal Medicine 08/31/16 10/13/20 Miller Villalpando [address] [place] [address] PCP - General Internal Medicine 10/14/20 documented as of this encounter
--- OUTSIDE RECORDS SUMMARY | 2024-07-20 10:28 | XMS_ITS | Encounter Summary ---
Author Organization [facility] Address [address] [place] [address] Care Team Providers Care Opening Machine Cleaner Name Role Phone Celio Marmolejo MD Primary Care Provider [phone] [phone] Miller Villalpando Primary Care Provider Unavailabl e Reason for Visit * Reason Onset Date Comments refill request 08/23/2019 Encounter Details Date Type Department Care Team Description 08/23/2019 Refill Adult Medicine - [address] [address] Celio Marmolejo MD [address] [place] [address] refill request Social History Tobacco Use Types [...] THE PATIENT'S LAST APPOINTMENT IN ADULT MEDICINE? [id number] WHEN WAS THE LAST TIME THE PATIENT SAW THEIR PCP? Same as above Does patient have an upcoming appointment? Yes [id number] (THE MEDICATION REQUESTED IS ON THE MED LIST ABOVE) All of the medications requested were on the CURRENT MEDS list Did you check the Pharmacy information above?: YES Patient wants: 90 -day supply Is this a mail order prescription request ? NO If the refill is from a FAXED refill request what is the RX # listed on the fax? [id number] Patients current insurance carrier is: [place] / [place] / Product Type: MED[place]ARE [id number] documented in this encounter Plan of Treatment Not on file documented as of this encounter Visit Diagnoses Not on filedocumented in this encounter Care Teams Opening Machine Cleaner Relationship Specialty Start Date End Date Celio Marmolejo MD [address] [place] [address] PCP - General Internal Medicine 08/31/16 10/13/20 Miller Villalpando [address] [place] [address] PCP - General Internal Medicine 10/14/20 documented as of this encounter
--- OUTSIDE RECORDS SUMMARY | 2024-07-20 10:28 | XMS_ITS | Clinical Summary ---
Author Organization [facility] Address [address] [place] [address] Care Team Providers Care Lcac Operator Name Role Phone Miller Villalpando MD Primary Care Provider [phone] Surgical History Surgery Date Site/Laterality Comments OTHER SURGICAL HISTORY PROCEDURE: ---- OTHER ----; COMMENT: right upper apex lung lobe removed APPENDECTOMY PROCEDURE: HISTORICAL APPENDECTOMY COLONOSCOPY 03/15/2014 [facility] PROCEDURE: HISTORICAL COLONOSCOPY; COMMENT: Two 8-10 mm adenomas; repeat in 3 yrs OTHER SURGICAL HISTORY 03/05/2014 PROCEDURE: RI ESOPHAGOSCOPY FLEXIBLE TRANSORAL DIAGNOSTIC; COMMENT: small HH; [...] high-fiber diet COLONOSCOPY W/ POLYPECTOMY 09/09/2017 PROCEDURE: RI COLSC FLX W/RMVL OF TUMOR POLYP LESION SNARE TQ; COMMENT: 12 small polyps, all adenomas; hemorrhoids. Repeat in 3 years under propofol OTHER SURGICAL HISTORY PROCEDURE: IMPLANT BREAST SILICONE/EQ TUBAL LIGATION PROCEDURE: HISTORICAL TUBAL LIGATION OTHER SURGICAL HISTORY PROCEDURE: RI REMOVAL OF LUNG PNEUMONECTOMY Medical History Medical History Date Comments Asthma 09/22/2016 DX:Asthma COPD (chronic obstructive pu lmonary disease) (CMS/HCC) 09/22/2016 DX:COPD (chronic obstructive pulmonary disease) (HCC) Chronic bronchitis (CMS/HCC) 09/22/2016 DX: Chronic bronchitis (HCC) Bronchiectasis 09/22/2016 DX:Bronchiectasi s (HCC) Mitral valve prolapse 09/22/2016 DX:Mitral valve [...] RESULTING AGENCY - 05/28/2020 10:55 AM EST [id number] THINPREP PAP, IMAGED: NEGATIVE FOR SQUAMOUS INTRAEPITHELIAL [...] biopsy and diagnostic mammogram report. Procedure Note eHdy Soto MD - 04/21/2022 This is a [...] Recently Relevant to Health Maintenance Care Teams Lcac Operator Relationship Specialty Start Date End Date Miller Villalpando MD [address] [place] [address] PCP - General Internal Medicine 10/14/20
--- OUTSIDE RECORDS SUMMARY | 2024-07-20 10:28 | XMS_ITS | Encounter Summary ---
Author Organization [facility] Address [address] [place] [address] Care Team Providers Care Hearing Therapy Director Name Role Phone Celio Marmolejo MD Primary Care Provider [phone] [phone] Miller Villalpando Primary Care Provider Unavailabl e Reason for Visit * Reason Onset Date Comments Nuclear Stress Testing 03/30/2017 Encounter Details Date Type Department Care Team Description 03/30/2017 Telephone Cardiology - [facility] [address] [place], [place] [phone] Sita Mahoney MD [address] [place], [place] [phone] Nuclear Stress Testing Social History Tobacco Use [...] stress test till after she returns from [place]. While I would prefer she do this [...] to wait until after she returns from [place] in about a month, before she does this test. Please advise Medicare/[employer] No auth Req km 03/23/17 documented in this encounter Plan of Treatment Not on file documented as of this encounter Visit Diagnoses Not on filedocumented in this encounter Care Teams Hearing Therapy Director Relationship Specialty Start Date End Date Celio Marmolejo MD [address] [place] [address] PCP - General Internal Medicine 08/31/16 10/13/20 Miller Villalpando [address] [place] [address] PCP - General Internal Medicine 10/14/20 documented as of this encounter
--- OUTSIDE RECORDS SUMMARY | 2024-07-20 10:28 | XMS_ITS | Encounter Summary ---
Author Organization [facility] Address [address] [place] [address] Care Team Providers Care Sample Box Maker Name Role Phone Celio Marmolejo MD Primary Care Provider [phone] [phone] Miller Villalpando Primary Care Provider Unavailabl e Encounter Details Date Type Department Care Team Description 12/21/2019 Hydrator Operator Report Medical Records [address] [place] [address] Adali Lantigua MD Social History Tobacco Use [...] on filedocumented in this encounter Care Teams Sample Box Maker Relationship Specialty Start Date End Date Celio Marmolejo MD [address] [place] [address] PCP - General Internal Medicine 08/31/16 10/13/20 Miller Villalpando [address] [place] [address] PCP - General Internal Medicine 10/14/20 documented as of this encounter
--- OUTSIDE RECORDS SUMMARY | 2024-07-20 10:28 | XMS_ITS | Encounter Summary ---
Author Organization [facility] Address [address] [place] [address] Care Team Providers Care Operations Scheduler Name Role Phone Celio Marmolejo MD Primary Care Provider [phone] [phone] Miller Villalpando Primary Care Provider Unavailabl e Encounter Details Date Type Department Care Team Description 10/05/2019 Pizza Chef Report Medical Records [address] [place] [address] Diego Hartley MD Social History Tobacco Use [...] filedocumented in this encounter Care Teams Operations Scheduler Relationship Specialty Start Date End Date Celio Marmolejo MD [address] [place] [address] PCP - General Internal Medicine 08/31/16 10/13/20 Miller Villalpando [address] [place] [address] PCP - General Internal Medicine 10/14/20 documented as of this encounter
--- OUTSIDE RECORDS SUMMARY | 2024-07-20 10:28 | XMS_ITS | Encounter Summary ---
Author Organization [facility] Address [address] [place] [address] Care Team Providers Care Test Desk Trouble Locator Name Role Phone Celio Marmolejo MD Primary Care Provider [phone] Miller Villalpando Primary Care Provider Unavailabl e Reason for Visit * Reason Comments E-prescribe Rx Request Encounter Details Date Type Department Care Team Description 08/29/2019 Refill Adult Medicine [address] [address] Didi Raymundo CNM E-prescribe Rx Request Social [...] EDT WHEN WAS THE PATIENTS LAST ANNUAL PROJECT PLANNER EXAM? 05/24/18 Does patient have an upcoming [...] the day? NO [place] / [place] / Product Type: MEDICARE [id number] documented in this encounter Plan of Treatment Not on file documented as of this encounter Visit Diagnoses Not on filedocumented in this encounter Care Teams Test Desk Trouble Locator Relationship Specialty Start Date End Date Celio Marmolejo MD [address] [place] [address] PCP - General Internal Medicine 08/31/16 10/13/20 Miller Villalpando [address] [place] [address] PCP - General Internal Medicine 10/14/20 documented as of this encounter
--- OUTSIDE RECORDS SUMMARY | 2024-07-20 10:28 | XMS_ITS | Encounter Summary ---
Author Organization [facility] Address [address] [place] [address] Care Team Providers Care School Age Program Teacher Name Role Phone Celio Marmolejo MD Primary Care Provider [phone] Miller Villalpando Primary Care Provider Unavailabl e Encounter Details Date Type Department Care Team Description 11/17/2017 Orders Only Podiatry - [address] [address] Ghulam Byrd DPM Other chronic osteomyelitis of [...] Ghulam Byrd DPM RADIOLOGY Performing Organization Address [facility] de Phone Number SAGAR MONSON OTHER EXTERNAL * RBC SEDIMENTATION RATE, NON-AUTO (11/17/2017 2:27 PM EDT) Pathologist [facility] ESR 20 0 - 30 mm/hr 11/17/2017 7:21 PM EDT [facility] 11/17/2017 2:27 PM EDT 11/17/2017 2:27 PM EDT Ghulam Byrd DPM LAB Performing Organization Address [facility] de Phone Number [place] [phone] [facility] * C-REACTIVE PROTEIN HIGH SENSITIVITY (11/17/2017 2:27 PM EDT) Pathologist [facility] CARDIO CRP- HIGH SENSITIVE 16.4 mg/L 11/17/2017 8:13 PM EDT [employer] Comment: Cardio CRP Relative Risk Categories Low [...] Ghulam Byrd DPM LAB Performing Organization Address [facility] de Phone Number [employer] * (ABNORMAL) CBC (AUTO DIFF PLATELET) (11/17/2017 2:27 PM EDT) WBC 5.4 4.8 - 10.8 x10-3 11/17/2017 5:56 PM EDT [facility] RBC 3.9 3.8 - 4.8 x10-6 11/17/2017 5:56 PM EDT [facility] HGB 12.7 11.5 - 16.0 g/dl 11/17/2017 5:56 PM EDT [facility] HCT 39.0 35 - 47 % 11/17/2017 5:56 PM EDT [facility] MCV 101.0(H) 79 - 98 fl 11/17/2017 5:56 PM EDT [facility] MCH 32.9(H) 27 - 32 pg 11/17/2017 5:56 PM EDT [facility] MCHC 32.6 32 - 37 g/dl 11/17/2017 5:56 PM EDT [facility] RDW 14.8 11 - 15 % 11/17/2017 5:56 PM EDT [facility] PLT COUNT 446(H) 130 - 400 x10-3 11/17/2017 5:56 PM EDT [facility] MEAN PLATELET VOLUME 9.9 7 - 11 fl 11/17/2017 5:56 PM EDT [facility] NEUT % 56.2 41 - 85 % 11/17/2017 5:56 PM EDT [facility] LYMPH % 30.7 15 - 48 % 11/17/2017 5:56 PM EDT [facility] MONO % 11.2 0 - 12 % 11/17/2017 5:56 PM EDT [facility] EOS % 1.5 0 - 5 % 11/17/2017 5:56 PM EDT [facility] BASO % 0.4 0 - 2 % 11/17/2017 5:56 PM EDT [facility] 11/17/2017 2:27 PM EDT 11/17/2017 2:27 PM EDT Ghulam Byrd DPM LAB Performing Organization Address City/State/[facility] Co de Phone Number [facility] [address] [facility] documented in this encounter Visit Diagnoses Diagnosis Other chronic osteomyelitis of right foot (HCC)- Primary Other chronic osteomyelitis of right foot (HCC) documented in this encounter Care Teams School Age Program Teacher Relationship Specialty Start Date End Date Celio Marmolejo MD [address] [place] [address] PCP - General Internal Medicine 08/31/16 10/13/20 Miller Villalpando [address] [place] [address] PCP - General Internal Medicine 10/14/20 documented as of this encounter
--- OUTSIDE RECORDS SUMMARY | 2024-07-20 10:28 | XMS_ITS | Encounter Summary ---
Author Organization [facility] Address [address] [place] [address] Care Team Providers Care Garment Manufacturer Name Role Phone Celio Marmolejo MD Primary Care Provider [phone] Miller Villalpando Primary Care Provider Unavailabl e Encounter Details Date Type Department Care Team Description 04/18/2014 Hospital Medical Records [address] [place] [address] Alisia Ordonez MD Social History Tobacco Use [...] on filedocumented in this encounter Care Teams Garment Manufacturer Relationship Specialty Start Date End Date Celio Marmolejo MD [address] [place], [place] [phone] PCP - General Internal Medicine 08/31/16 10/13/20 Miller Villalpando [address] [place] [address] PCP - General Internal Medicine 10/14/20 documented as of this encounter
--- OUTSIDE RECORDS SUMMARY | 2024-07-20 10:28 | XMS_ITS | Encounter Summary ---
Author Organization [facility] Address [address] [place] [address] Care Team Providers Care Boat Worker Name Role Phone Celio Marmolejo MD Primary Care Provider [phone] Miller Villalpando Primary Care Provider Unavailabl e Encounter Details Date Type Department Care Team Description 01/11/2018 Release of Information Medical Records [address] [place] [id number] Abstract, Provider Social History Tobacco Use Types [...] on filedocumented in this encounter Care Teams Boat Worker Relationship Specialty Start Date End Date Celio Marmolejo MD [address] [place] [address] PCP - General Internal Medicine 08/31/16 10/13/20 Miller Villalpando [address] [place] [address] PCP - General Internal Medicine 10/14/20 documented as of this encounter
--- OUTSIDE RECORDS SUMMARY | 2024-07-20 10:29 | XMS_ITS | Encounter Summary ---
Author Organization [facility] Address [address] [place] [address] Care Team Providers Care Filter Tender Jelly Name Role Phone Miller Villalpando Primary Care Provider Unavailabl e Reason for Visit * Reason Onset Date Comments Transfer Records 09/17/2021 Encounter Details Date Type Department Care Team Description 09/17/2021 Telephone OBGYN - [facility] [address] [place], [place] [phone] Cheri Gaxiola, Transfer Records Social History Tobacco [...] Release of information received by fax from [facility] Requesting Entire medical recordto be faxed to [phone]. Passed to records documented in this encounter Plan of Treatment Not on file documented as of this encounter Visit Diagnoses Not on filedocumented in this encounter Care Teams Filter Tender Jelly Relationship Specialty Start Date End Date Miller Villalpando PCP - General Internal Medicine 10/14/20 documented as of this encounter
--- OUTSIDE RECORDS SUMMARY | 2024-07-20 10:29 | XMS_ITS | Encounter Summary ---
Author Organization [facility] Address [address] [place] [address] Care Team Providers Care Manager Of Photography Name Role Phone Unavailable Primary Care Provider Unavailabl e Encounter Details Date Type Department Care Team ([facility] st Contact Info) Description 06/21/2024 1:00 PM EST Office Visit [facility] [address] [place] [phone] Mary Hogue, DMD [address] [place] [address] Tooth missing, unspecified edentulism (Primary Dx) Social [...] RPD and Mandibular Resin RPD Final Impressions. Lithograph Press Operator Tinware: No CC: loose l partial and broken [...] using PARQ. Dental procedures in this visit [id number] - REMOVABLE PARTIAL DENTURE - IN PROCESS (Completed) Service provider: Mary Hogue DMD Billing provider: Mary Hogue DMD Wash up and vegetable picker impression of L arch; vegetable picker impression on U arch, both with [...] Description 11/20/2024 10:20 AM EDT Office Visit [address] [phone] Daniel Hammond, Nathaniel [address] [place] [address] documented as of this encounter Procedures Procedure Name Priority Date/Time Associated Diagnosis Comments REMOVABLE PARTIAL DENTURE - IN PROCESS Routine 06/21/2024 1:00 PM EST Tooth missing, unspecified edentulism documented in this encounter Visit Diagnoses Diagnosis Tooth missing, unspecified edentulism- Primary documented in this encounter
--- OUTSIDE RECORDS SUMMARY | 2024-07-20 10:29 | XMS_ITS | Encounter Summary ---
Author Organization [facility] Address [address] [place] [address] Care Team Providers Care Steel Erector Apprentice Name Role Phone Miller Villalpando Primary Care Provider Alejandro hinton Encounter Details Date Type Department Care Team Description 10/24/2020 [facility] Medical Records [address] [place] [address] Abstract, Provider Social History Tobacco Use Types [...] on filedocumented in this encounter Care Teams Steel Erector Apprentice Relationship Specialty Start Date End Date Miller Villalpando PCP - General Internal Medicine 10/14/20 documented as of this encounter
--- OUTSIDE RECORDS SUMMARY | 2024-07-20 10:29 | XMS_ITS | Encounter Summary ---
Author Organization [facility] Address [address] [place] [address] Care Team Providers Care Tool Crib Clerk Name Role Phone Celio Marmolejo MD Primary Care Provider [phone] Miller Villalpando Primary Care Provider Unavailabl e Encounter Details Date Type Department Care Team Description 02/22/2017 Hog Pusher Report Medical Records [address] [place] [address] Abstract, Provider Social History Tobacco Use Types [...] on filedocumented in this encounter Care Teams Tool Crib Clerk Relationship Specialty Start Date End Date Celio Marmolejo MD [address] [place], [place] [phone] PCP - General Internal Medicine 08/31/16 10/13/20 Miller Villalpando [address] [place] [address] PCP - General Internal Medicine 10/14/20 documented as of this encounter
--- OUTSIDE RECORDS SUMMARY | 2024-07-20 10:29 | XMS_ITS | Encounter Summary ---
Author Organization [facility] Address [address] [place] [address] Care Team Providers Care School Guidance Counselor Name Role Phone Celio Marmolejo MD Primary Care Provider [phone] Miller Villalpando Primary Care Provider Unavailabl e Reason for Visit * Reason Comments E-prescribe Rx Request Encounter Details Date Type Department Care Team Description 04/15/2018 Refill Adult Medicine [address] [address] Diego Hartley MD E-prescribe Rx Request Social [...] PATIENT'S LAST APPOINTMENT WITH THE PRESCRIBING PROVIDER? [id number] Does patient have an upcoming appointment? Yes [id number] (THE MEDICATION REQUESTED IS ON THE MED LIST ABOVE) All of the medications requested were on the CURRENT MEDS list Did you check the Pharmacy information above?: YES Patient wants: 90 -day supply Is this a mail order prescription request ? NO Patients current [place] carrier is: [place] / Product Type: MEDICARE [id number] documented in this encounter Plan of Treatment Not on file documented as of this encounter Visit Diagnoses Not on filedocumented in this encounter Care Teams School Guidance Counselor Relationship Specialty Start Date End Date Celio Marmolejo MD [address] [place] [address] PCP - General Internal Medicine 08/31/16 10/13/20 Miller Villalpando [address] [place] [id number] PCP - General Internal Medicine 10/14/20 documented as of this encounter
--- OUTSIDE RECORDS SUMMARY | 2024-07-20 10:29 | XMS_ITS | Encounter Summary ---
Author Organization [facility] Address [address] [place] [address] Care Team Providers Care It Coordinator Name Role Phone Celio Marmolejo MD Primary Care Provider [phone] [phone] Miller Villalpando Primary Care Provider Unavailabl e Encounter Details Date Type Department Care Team Description 03/29/2017 Business Doc Medical Records [address] [place] [address] Abstract, Provider Social History Tobacco Use Types [...] on filedocumented in this encounter Care Teams It Coordinator Relationship Specialty Start Date End Date Celio Marmolejo MD [address] [place], [place] [phone] PCP - General Internal Medicine 08/31/16 10/13/20 Miller Villalpando [address] [place] [address] PCP - General Internal Medicine 10/14/20 documented as of this encounter
--- OUTSIDE RECORDS SUMMARY | 2024-07-20 10:29 | XMS_ITS | Encounter Summary ---
Author Organization [facility] Address [address] [place] [address] Care Team Providers Care Bull Chain Operator Name Role Phone Unavailable Primary Care Provider Unavailabl e Encounter Details Date Type Department Care Team (Late st Contact Info) Description 06/23/2024 1:40 PM EST Office Visit [facility] [address] [place] [phone] Mary Hogue, DMD [address] [place] [address] Tooth missing, unspecified edentulism (Primary Dx) Social [...] Maxillary Resin RPD and MandibularResin RPD delivery. Personnel Technician: No OBJECTIVE: RMHx: Yes, pt has a [...] Description 11/20/2024 10:20 AM EDT Office Visit [address] [address] Daniel Hammond Nathaniel [address] [place] [address] documented as of this encounter Procedures Procedure [...]
== END 2024-07-20 10:00 | disposition home or self-care (01) ==
LOC: HO.HPS 09:31
PROVIDERS: PCP Internal Medicine; Visit Provider Hospitalist
DX: J43.2 Centrilobular emphysema (principal); R91.8 Other nonspecific abnormal finding of lung field; G47.33 Obstructive sleep apnea (adult) (pediatric); J44.9 Chronic obstructive pulmonary disease, unspecified; Z01.811 Encounter for preprocedural respiratory examination
CPT/HCPCS: 99214; G2211

== ENCOUNTER 2024-07-25 13:38 | Outpatient (AMB) | payer MEDICARE, MEDICAID, SELFPAY ==
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
[2024-07-25 13:42] VITALS: BP 104/75; PULSE 109; BMI 25.5
--- OUTSIDE RECORDS SUMMARY | 2024-07-25 16:50 | XMS_ITS | Encounter Summary ---
Author Organization [facility] Address [address] [place] [address] Care Team Providers Care Licensed Practical Nurse Clinic Nurse Name Role Phone Celio Marmolejo MD Primary Care Provider [phone] Miller Villalpando Primary Care Provider Unavailabl e Encounter Details Date Type Department Care Team Description 09/05/2020 Ultrasound Applications Specialist Report Medical Records [address] [place] [id number] Ghulam Byrd, MARIE Social History Tobacco Use [...] on filedocumented in this encounter Care Teams Licensed Practical Nurse Clinic Nurse Relationship Specialty Start Date End Date Celio Marmolejo MD [address] [place], [place] [id number] PCP - General Internal Medicine 08/31/16 10/13/20 Miller Villalpando [address] [place] [address] PCP - General Internal Medicine 10/14/20 documented as of this encounter
--- OUTSIDE RECORDS SUMMARY | 2024-07-25 16:50 | XMS_ITS | Encounter Summary ---
Author Organization [facility] Address [address] [place] [address] Care Team Providers Care Fur Floor Worker Name Role Phone Celio Marmolejo MD Primary Care Provider [phone] Miller Villalpando Primary Care Provider Unavailabl e Encounter Details Date Type Department Care Team Description 04/18/2014 Hospital Medical Records [address] [place] [address] Alisia Ordonez MD Social History Tobacco Use [...] on filedocumented in this encounter Care Teams Fur Floor Worker Relationship Specialty Start Date End Date Celio Marmolejo MD [address] [place], [place] [id number] PCP - General Internal Medicine 08/31/16 10/13/20 Miller Villalpando [address] [place] [address] PCP - General Internal Medicine 10/14/20 documented as of this encounter
--- OUTSIDE RECORDS SUMMARY | 2024-07-25 16:50 | XMS_ITS | Encounter Summary ---
Author Organization [facility] Address [address] [place] [address] Care Team Providers Care Mail Handler Equipment Operator Name Role Phone Celio Marmolejo MD Primary Care Provider [phone] Miller Villalpando Primary Care Provider Unavailabl e Encounter Details Date Type Department Care Team Description 09/14/2017 Orders Only Pulmonology - [address] [place] [address] Mary Ann Ratliff NP Social [...] on filedocumented in this encounter Care Teams Mail Handler Equipment Operator Relationship Specialty Start Date End Date Celio Marmolejo MD [address] [place] [address] PCP - General Internal Medicine 08/31/16 10/13/20 Miller Villalpando [address] [place] [address] PCP - General Internal Medicine 10/14/20 documented as of this encounter
--- OUTSIDE RECORDS SUMMARY | 2024-07-25 16:50 | XMS_ITS | Encounter Summary ---
Author Organization [facility] Address [address] [place] [address] Care Team Providers Care Graphics Intern Name Role Phone Celio Marmolejo MD Primary Care Provider [phone] Miller Villalpando Primary Care Provider Unavailabl e Reason for Referral * EXTERNAL (Priority) - Authorized/Booked Specialty Diagnoses / Procedures Referred By Contjennifer t Referred To Contact Infectious Disease Procedures REFERRAL TO INFECTIOUS DISEASE Ghulam Byrd DPM [address] [place] [address] Referral ID Status Reason Start Date Expiration Date V isits Requested Visits Authorized SEE NOTE Authorized/B ooked 09/03/2017 12/07/2017 1 1 Encounter Details Date Type Department Care Team Description 09/03/2017 Orders Only Podiatry - [address] [address] Ghulam Byrd DPM Social History Tobacco Use [...] on filedocumented in this encounter Care Teams Graphics Intern Relationship Specialty Start Date End Date Celio Marmolejo MD [address] [place] [id number] PCP - General Internal Medicine 08/31/16 10/13/20 Miller Villalpando [address] [place] [address] PCP - General Internal Medicine 10/14/20 documented as of this encounter
--- OUTSIDE RECORDS SUMMARY | 2024-07-25 16:50 | XMS_ITS | Encounter Summary ---
Author Organization [facility] Address [address] [place] [address] Care Team Providers Care Sterile Supply Technician Name Role Phone Celio Marmolejo MD Primary Care Provider [phone] Miller Villalpando Primary Care Provider Unavailabl e Encounter Details Date Type Department Care Team Description 04/25/2020 Telephone Adult Medicine [address] [address] Celio Marmolejo MD [address] [place] [id number] Social History Tobacco Use Types Packs/Day Years [...] on filedocumented in this encounter Care Teams Sterile Supply Technician Relationship Specialty Start Date End Date Celio Marmolejo MD [address] [place] [address] PCP - General Internal Medicine 08/31/16 10/13/20 Miller Villalpando [address] [place] [address] PCP - General Internal Medicine 10/14/20 documented as of this encounter
--- OUTSIDE RECORDS SUMMARY | 2024-07-25 16:50 | XMS_ITS | Encounter Summary ---
Author Organization [facility] Address [address] [place] [address] Care Team Providers Care Beef Farmer Name Role Phone Celio Marmolejo MD Primary Care Provider [phone] Miller Villalpando Primary Care Provider Unavailabl e Reason for Visit * Reason Comments E-prescribe Rx Request Encounter Details Date Type Department Care Team Description 12/03/2017 Refill Pulmonology - [place] [address] [facility] [address] [place] [address] Dylon Dotson MD [address] [place] [address] E-prescribe Rx Request Social History [...] NO Patients current insurance carrier is: Payor: MEDICARE-[employer] / Plan: [place] / Product Type: MEDICARE [id number] documented in this encounter Plan of Treatment Not on file documented as of this encounter Visit Diagnoses Diagnosis Chronic obstructive pulmonary disease, unspecified COPD type (HCC) documented in this encounter Care Teams Beef Farmer Relationship Specialty Start Date End Date Celio Marmolejo MD [address] [place] [address] PCP - General Internal Medicine 08/31/16 10/13/20 Miller Villalpando [address] [place] [address] PCP - General Internal Medicine 10/14/20 documented as of this encounter
--- OUTSIDE RECORDS SUMMARY | 2024-07-25 16:50 | XMS_ITS | Encounter Summary ---
Author Organization [facility] Address [address] [place] [address] Care Team Providers Care Bilingual Customer Service Specialist Name Role Phone Celio Marmolejo MD Primary Care Provider [phone] Miller Villalpando Primary Care Provider Unavailabl e Reason for Visit * Reason Comments E-prescribe Rx Request Encounter Details Date Type Department Care Team Description 06/10/2018 Refill Pulmonology - [address] [place] [address] Diego Hartley MD E-prescribe Rx [...] encounter Miscellaneous Notes * Telephone Encounter - Leena Zamora - 06/10/2018 12:09 PM EST Patient would like script to be: E-PRESCRIBED/FAXED TO PHARMACY WHEN WAS THE PATIENT'S LAST APPOINTMENT WITH THE PRESCRIBING PROVIDER? 04/28/18 Does patient have an upcoming appointment? Yes 07/28/18 (THE MEDICATION REQUESTED IS ON THE MED LIST ABOVE) All of the medications requested were on the CURRENT MEDS list Did you check the Pharmacy information above?: YES Patient wants: 30 -day supply Is this a mail order prescription request ? NO Patients current insurance carrier is: [place] / Plan: MEDICARE-[employer] / Product Type: MEDICARE [id number] documented in this encounter Plan of Treatment Not on file documented as of this encounter Visit Diagnoses Diagnosis Chronic obstructive pulmonary disease, unspecified COPD type (HCC) documented in this encounter Care Teams Bilingual Customer Service Specialist Relationship Specialty Start Date End Date Celio Marmolejo MD [address] [place] [address] PCP - General Internal Medicine 08/31/16 10/13/20 Miller Villalpando [address] [place] [address] PCP - General Internal Medicine 10/14/20 documented as of this encounter
--- OUTSIDE RECORDS SUMMARY | 2024-07-25 16:50 | XMS_ITS | Clinical Summary ---
Author Organization [facility] Address [address] [place] [address] Care Team Providers Care Medical Technologist Chemistry Name Role Phone Miller Villalpando MD Primary Care Provider [phone] Surgical History Surgery Date Site/Laterality Comments OTHER SURGICAL HISTORY PROCEDURE: ---- OTHER ----; COMMENT: right upper apex lung lobe removed APPENDECTOMY PROCEDURE: HISTORICAL APPENDECTOMY COLONOSCOPY 03/15/2014 [facility] PROCEDURE: HISTORICAL COLONOSCOPY; COMMENT: Two 8-10 mm adenomas; repeat in 3 yrs OTHER SURGICAL HISTORY 03/05/2014 PROCEDURE: GA ESOPHAGOSCOPY FLEXIBLE TRANSORAL DIAGNOSTIC; COMMENT: small HH; [...] high-fiber diet COLONOSCOPY W/ POLYPECTOMY 09/09/2017 PROCEDURE: GA COLSC FLX W/RMVL OF TUMOR POLYP LESION SNARE TQ; COMMENT: 12 small polyps, all adenomas; hemorrhoids. Repeat in 3 years under propofol OTHER SURGICAL HISTORY PROCEDURE: IMPLANT BREAST SILICONE/EQ TUBAL LIGATION PROCEDURE: HISTORICAL TUBAL LIGATION OTHER SURGICAL HISTORY PROCEDURE: GA REMOVAL OF LUNG PNEUMONECTOMY Medical History Medical [...] RESULTING AGENCY - 05/28/2020 10:55 AM EST [id number] THINPREP PAP, IMAGED: NEGATIVE FOR SQUAMOUS INTRAEPITHELIAL [...] core biopsy and diagnosticmammogram report. us Celio Marmoleoj MD IMG BI PROCEDURES Final R esult from Last 3 Months or Most Recently Relevant to Health Maintenance Care Teams Medical Technologist Chemistry Relationship Specialty Start Date End Date Miller Villalpando MD [address] [place] [address] PCP - General Internal Medicine 10/14/20
--- OUTSIDE RECORDS SUMMARY | 2024-07-25 16:50 | XMS_ITS | Encounter Summary ---
Author Organization [facility] Address [address] [place] [address] Care Team Providers Care Heel Seat Trimmer Name Role Phone Celio Marmolejo MD Primary Care Provider +1 -[phone] Miller Villalpando Primary Care Provider Unavailabl e Encounter Details Date Type Department Care Team Description 11/01/2017 Telephone Pulmonology - [place] [address] [facility] [address] [place] [address] Diego [place]ley MD Social History Tobacco Use Types Packs/Day Years Used Date Smoking Tobacco: Former Cigarettes 1 Q uit: 10/14/2017 Smokeless Tobacco: Never Alcohol Use Standard Drinks/Week Comments Yes 0 (1 standard drink = 0.6 oz pur e alcohol) rarely Sex Assigned at Date Recorded Not on file documented as of this encounter Miscellaneous Notes * Telephone Encounter - Gabriela Holland - 11/01/2017 2:42 PM EDT Appointment made with patient. * Telephone Encounter - Yvonne Miranda M.A. - 11/01/2017 2:22 PM EDT Spoke to pt she said she has some blood in her sputum ,temp 99.9, no SOB.can not come in for appt she does not have a ride. * Telephone Encounter - Gabriela Holland - 11/01/2017 12:11 PM EDT Symptoms patient is presenting: blood in sputum with coughing If pain or injury related was it due to an accident at work or from a motor vehicle accident? NO If yes, gather 3rd libertarian insurance information Date of accident/Injury: How long has patient had these symptoms?: just today PCP: Celio Marmolejo Payor: MEDICARE-[employer] / Plan: MEDICARE-[employer] / Product Type: MEDICARE [id number] documented in this encounter Plan of Treatment Not on file documented as of this encounter Visit Diagnoses Not on filedocumented in this encounter Care Teams Heel Seat Trimmer Relationship Specialty Start Date End Date Celio Marmolejo MD [address] [place] [address] PCP - General Internal Medicine 08/31/16 10/13/20 Miller Villalpando [address] [place] [address] PCP - General Internal Medicine 10/14/20 documented as of this encounter
--- OUTSIDE RECORDS SUMMARY | 2024-07-25 16:50 | XMS_ITS | Encounter Summary ---
Author Organization [facility] Address [address] [place] [address] Care Team Providers Care Shop Clerk Name Role Phone Celio Marmolejo MD Primary Care Provider +1 -[phone] Miller Villalpando Primary Care Provider Unavailabl e Reason for Visit * Reason Comments E-prescribe Rx Request Encounter Details Date Type Department Care Team Description 10/01/2020 Refill Podiatry - [place] [address] [place] [address] Ghulam Byrd DPM E-prescribe Rx Request Social [...] on filedocumented in this encounter Care Teams Shop Clerk Relationship Specialty Start Date End Date Celio Marmolejo MD [address] [place] [address] PCP - General Internal Medicine 08/31/16 10/13/20 Miller Villalpando [address] [place] [address] PCP - General Internal Medicine 10/14/20 documented as of this encounter
--- OUTSIDE RECORDS SUMMARY | 2024-07-25 16:50 | XMS_ITS | Clinical Summary ---
Author Organization [facility] Address [address] [place] [address] Care Team Providers Care Patient Advocate Name Role Phone Unavailable Primary Care Provider [...] fluoride, sodium, (SF 5000 PLUS) 1.1 % creaIndications :Enamel caries [place] twice daily with toothpaste then expectorate. Do not rinse. 51 g 3 2 Active Active Problems No known active problems Encounters Date Type Department Care Team Description 06/23/2024 1:40 PM EST Office Visit [facility] [address] [place] [address] Mykel, Mary, DMD Tooth missing, unspecified edentulism (Primary Dx) 06/21/2024 1:00 PM EST Office Visit [facility] [address] [place] [address] Mykel, Mary, DMD Tooth missing, unspecified edentulism (Primary Dx) 06/16/2024 1:00 PM EST Office Visit [facility] [address] [place] [address] Katelynn Lazaro, AMISHA Symptomatic periapical periodontitis (Primary Dx) 05/18/2024 1:40 PM EST Office Visit [facility] [address] [place] [address] Daniel Hammond RHD Encounter for [...] 11/20/2024 10:20 AM EDT Office Visit [address] [phone] Daniel Hammond RHD [address] [place] [address] Health Maintenance Due Date Last Done Comments Diabetes Screening 1966 HPV Screening 1966 Pap + HPV 1966 Tobacco Cessation Counseling (#1) 1966 Cervical Cancer Screening 1987 Pap Smear 1987 Breast Cancer Screening (Mammogram) 2006 CT Colonography 2011 Colonoscopy 2011 Colorectal Cancer Screening 2011 FIT/gFOBT 2011 Fecal DNA 2011 Flexible Sigmoidoscopy 2011 Imm-Zoster, Recombinant (1 of 2) 02/24/2016 [id number] ( season) 2024 Imm-Influenza (#1) 2024 02/02/2020, 03/16/2016 Alcohol and Drug Screen 05/03/2024 Depression Annual Screen 05/03/2024 Dental BW 05/20/2025 05/18/2024, 1205/2022, 10/21/2022, Additional history exists Dental Examination 05/20/2025 [...]
--- OUTSIDE RECORDS SUMMARY | 2024-07-25 16:50 | XMS_ITS | Encounter Summary ---
Author Organization [facility] Address [address] [place] [address] Care Team Providers Care Tube Sizer And Cutter Operator Name Role Phone Celio Marmolejo MD Primary Care Provider +1 -[phone] Miller Villalpando Primary Care Provider Unavailabl e Encounter Details Date Type Department Care Team Description 01/11/2018 Release of Information Medical Records [address] [place] [address] Abstract, Provider Social History Tobacco Use Types [...] on filedocumented in this encounter Care Teams Tube Sizer And Cutter Operator Relationship Specialty Start Date End Date Celio Marmolejo MD [address] [place] [address] PCP - General Internal Medicine 08/31/16 10/13/20 Miller Villalpando [address] [place] [address] PCP - General Internal Medicine 10/14/20 documented as of this encounter
--- OUTSIDE RECORDS SUMMARY | 2024-07-25 16:50 | XMS_ITS | Encounter Summary ---
Author Organization [facility] Address [address] [place] [address] Care Team Providers Care Building And Grounds Supervisor Name Role Phone Celio Marmolejo MD Primary Care Provider +1 -[phone] Miller Villalpando Primary Care Provider Unavailabl e Encounter Details Date Type Department Care Team Description 01/28/2018 Country Director Report Medical Records [address] [place] [address] Michela Salazar Social History Tobacco Use Types [...] on filedocumented in this encounter Care Teams Building And Grounds Supervisor Relationship Specialty Start Date End Date Celio Marmolejo MD [address] [place] [address] PCP - General Internal Medicine 08/31/16 10/13/20 Miller Villalpando [address] [place] [address] PCP - General Internal Medicine 10/14/20 documented as of this encounter
--- OUTSIDE RECORDS SUMMARY | 2024-07-25 16:50 | XMS_ITS | Encounter Summary ---
Author Organization [facility] Address [address] [place] [address] Care Team Providers Care Door Core Assembler Name Role Phone Celio Marmolejo MD Primary Care Provider +1 -[phone] Miller Villalpando Primary Care Provider Unavailabl e Encounter Details Date Type Department Care Team Description 07/17/2019 Oil Well Service Operator Helper Report Medical Records [address] [place] [address] Diego [place] MD Social History Tobacco Use [...] on filedocumented in this encounter Care Teams Door Core Assembler Relationship Specialty Start Date End Date Celio Marmolejo MD [address] [place] [address] PCP - General Internal Medicine 08/31/16 10/13/20 Miller Villalpando [address] [place] [address] PCP - General Internal Medicine 10/14/20 documented as of this encounter
--- OUTSIDE RECORDS SUMMARY | 2024-07-25 16:50 | XMS_ITS | Encounter Summary ---
Author Organization [facility] Address [address] [place] [address] Care Team Providers Care Stummel Selector Name Role Phone Celio Marmolejo MD Primary Care Provider +1 -[phone] Miller Villalpando Primary Care Provider Unavailabl e Encounter Details Date Type Department Care Team Description 10/12/2018 Telephone Adult [address] [address] Celio Marmolejo MD [address] [place] [address] Social History Tobacco Use Types Packs/Day Years [...] on filedocumented in this encounter Care Teams Stummel Selector Relationship Specialty Start Date End Date Celio Marmolejo MD [address] [place] [address] PCP - General Internal Medicine 08/31/16 10/13/20 Miller Villalpando [address] [place] [address] PCP - General Internal Medicine 10/14/20 documented as of this encounter
--- OUTSIDE RECORDS SUMMARY | 2024-07-25 16:50 | XMS_ITS | Encounter Summary ---
Author Organization [facility] Address [address] [place] [address] Care Team Providers Care Retail Wireless Sales Representative Name Role Phone Celio Marmolejo MD Primary Care Provider +1 -[phone] Miller Villalpando Primary Care Provider Unavailabl e Reason for Visit * Reason Onset Date Comments Medication 08/10/2018 Encounter Details Date Type Department Care Team Description 08/10/2018 Telephone Pulmonology - [place] [address] [facility] [address] [place] [address] Diego [place] MD Medication Social [...] on filedocumented in this encounter Care Teams Retail Wireless Sales Representative Relationship Specialty Start Date End Date Celio Marmolejo MD [address] [place] [address] PCP - General Internal Medicine 08/31/16 10/13/20 Miller Villalpando [address] [place] [address] PCP - General Internal Medicine 10/14/20 documented as of this encounter
--- OUTSIDE RECORDS SUMMARY | 2024-07-25 16:50 | XMS_ITS | Encounter Summary ---
Author Organization [facility] Address [address] [place] [address] Care Team Providers Care Medical Screener Name Role Phone Celio Marmolejo MD Primary Care Provider +1 -[phone] Miller Villalpando Primary Care Provider Unavailabl e Encounter Details Date Type Department Care Team Description 10/18/2017 Business Doc Medical Records [address] [place] [address] Abstract, Provider Social History Tobacco Use Types [...] filedocumented in this encounter Care Teams Medical Screener Relationship Specialty Start Date End Date Celio Marmolejo MD [address] [place] [address] PCP - General Internal Medicine 08/31/16 10/13/20 Miller Villalpando [address] [place] [address] PCP - General Internal Medicine 10/14/20 documented as of this encounter
--- OUTSIDE RECORDS SUMMARY | 2024-07-25 16:50 | XMS_ITS | Encounter Summary ---
Author Organization [facility] Address [address] [place] [address] Care Team Providers Care Radio Engineering Teacher Name Role Phone Celio Marmolejo MD Primary Care Provider +1 -[phone] Miller Villalpando Primary Care Provider Unavailabl e Reason for Visit * Reason Comments E-prescribe Rx Request Encounter Details Date Type Department Care Team Description 08/29/2019 Refill Adult Medicine [address] [address] Didi Raymundo CNM E-prescribe Rx Request Social [...] EDT WHEN WAS THE PATIENTS LAST ANNUAL EXHIBITS COORDINATOR EXAM? 05/24/18 Does patient have an upcoming [...] the day? NO Pay[place] / Plan: [place] / Product Type: MEDICARE [id number] documented in this encounter Plan of Treatment Not on file documented as of this encounter Visit Diagnoses Not on filedocumented in this encounter Care Teams Radio Engineering Teacher Relationship Specialty Start Date End Date Celio Marmolejo MD [address] [place] [address] PCP - General Internal Medicine 08/31/16 10/13/20 Miller Villalpando [address] [place] [address] PCP - General Internal Medicine 10/14/20 documented as of this encounter
--- OUTSIDE RECORDS SUMMARY | 2024-07-25 16:50 | XMS_ITS | Encounter Summary ---
Author Organization [facility] Address [address] [place] [address] Care Team Providers Care Manufacturing Intern Name Role Phone Celio Marmolejo MD Primary Care Provider +1 -[phone] Miller Villalpando Primary Care Provider Unavailabl e Encounter Details Date Type Department Care Team Description 10/05/2017 Orders Only Podiatry - [place] [address] [place] [address] Ghulam Byrd DPM Osteomyelitis of right foot, [...] mg/dL 10/08/2017 5:11 PM EDT [facility] 10/08/2017 2:17 PM EDT 10/08/2017 2:17 PM EDT Ghulam Byrd DPM LAB [facility] [address] [facility] * RBC SEDIMENTATION RATE, NON-AUTO (10/08/2017 2:17 PM EDT) Pathologist [facility] ESR 2 0 - 30 mm/hr 10/08/2017 6:56 PM EDT [facility] 10/08/2017 2:17 PM EDT 10/08/2017 2:17 PM EDT Ghulam [facility] LAB Performing Organization Address [facility] Co de Phone Number [address] * CREATININE, BLOOD ASSAY (10/08/2017 2:17 PM EDT) CREAT 1.0 0.7 - 1.5 mg/dL 10/08/2017 5:11 PM EDT [facility] GFR > 60 >60 10/08/2017 5:11 PM T [facility] Comment: If patient is -Liberian, multiply result by 1.21 Chronic Kidney Disease: < 60 ml/min/1.73 square meters Kidney Failure: < 15 ml/min/1.73 square meters 10/08/2017 2:17 PM EDT 10/08/2017 2:17 PM EDT Ghulam [facility]ERRAR[facility] Performing Organization Address [facility] Phone Number [address] * (ABNORMAL) CBC (AUTO DIFF PLATELET) (10/08/2017 2:17 PM EDT) WBC 7.0 4.8 - 10.8 x10-3 10/08/2017 4:19 PM EDT [facility] RBC 4.4 3.8 - 4.8 x10-6 10/08/2017 4:19 PM EDT [facility] HGB 14.5 11.5 - 16.0 g/dl 10/08/2017 4:19 PM EDT [facility] HCT 44.1 35 - 47 % 10/08/2017 4:19 PM EDT [facility] MCV 99.8(H) 79 - 98 fl 10/08/2017 4:19 PM EDT [facility] MCH 32.8(H) 27 - 32 pg 10/08/2017 4:[address] [facility] MCHC 32.9 32 - 37 g/dl 10/08/2017 4:[address] [facility] RDW 13.8 11 - 15 % 10/08/2017 4:[address] [facility] PLT COUNT 313 130 - 400 x10-3 10/08/2017 4:[address] [facility] MEAN PLATELET VOLUME 9.8 7 - 11 fl 10/08/2017 4:[address] [facility] [place] NEUT % 59.1 41 - 85 % 10/08/2017 4:[address] [facility] [place] LYMPH % 30.1 15 - 48 % 10/08/2017 4:[address] [facility] [place] MONO % 8.1 0 - 12 % 10/08/2017 4:[address] [facility] EOS % 2.0 0 - 5 % 10/08/2017 4:[address] [facility] BASO % 0.7 0 - 2 % 10/08/2017 4:[address] [facility] 10/08/2017 2:17 PM EDT 10/08/2017 2:17 PM EDT Ghulam Byrd DPM LAB Performing Organization Address City/State/[facility] Co de Phone Number [facility] [address] [facility] * X-RAY EXAM OF FOOT, COMPLETE [...] Primary documented in this encounter Care Teams Manufacturing Intern Relationship Specialty Start Date End Date Celio Marmolejo MD [address] [place] [address] PCP - General Internal Medicine 08/31/16 10/13/20 Miller Villalpando [address] [place] [address] PCP - General Internal Medicine 10/14/20 documented as of this encounter
--- OUTSIDE RECORDS SUMMARY | 2024-07-25 16:50 | XMS_ITS | Encounter Summary ---
Author Organization [facility] Address [address] [place] [address] Care Team Providers Care Top Case Assembler Name Role Phone Celio Marmolejo MD Primary Care Provider +1 -[phone] Miller Villalpando Primary Care Provider Unavailabl e Reason for Visit * Reason Onset Date Comments refill request 08/23/2019 Encounter Details Date Type Department Care Team Description 08/23/2019 Refill Adult Medicine - [address] [address] Celio Marmolejo MD [address] [place] [address] refill request Social History Tobacco Use Types [...] THE PATIENT'S LAST APPOINTMENT IN ADULT MEDICINE? [id number] WHEN WAS THE LAST TIME THE PATIENT SAW THEIR PCP? Same as above Does patient have an upcoming appointment? Yes [id number] (THE MEDICATION REQUESTED IS ON THE MED LIST ABOVE) All of the medications requested were on the CURRENT MEDS list Did you check the Pharmacy information above?: YES Patient wants: 90 -day supply Is this a mail order prescription request ? NO If the refill is from a FAXED refill request what is the RX # listed on the fax? [phone] Patients current insurance carrier is: [place] / [place] / Product Type: MEDICARE [id number] documented in this encounter Plan of Treatment Not on file documented as of this encounter Visit Diagnoses Not on filedocumented in this encounter Care Teams Top Case Assembler Relationship Specialty Start Date End Date Celio Marmolejo MD [address] [place] [address] PCP - General Internal Medicine 08/31/16 10/13/20 Miller Villalpando [address] [place] [address] PCP - General Internal Medicine 10/14/20 documented as of this encounter
--- OUTSIDE RECORDS SUMMARY | 2024-07-25 16:50 | XMS_ITS | Encounter Summary ---
Author Organization [facility] Address [address] [place] [address] Care Team Providers Care Manager Surgery Name Role Phone Celio Marmolejo MD Primary Care Provider +1 -[phone] Miller Villalpando Primary Care Provider Unavailabl e Encounter Details Date Type Department Care Team Description 08/22/2020 Trainman Report Medical Records [address] [place] [address] Carla Sheppard Social History Tobacco Use Types Packs/Day Years [...] filedocumented in this encounter Care Teams Manager Surgery Relationship Specialty Start Date End Date Celio Marmolejo MD [address] [place] [address] PCP - General Internal Medicine 08/31/16 10/13/20 Miller Villalpando [address] [place] [address] PCP - General Internal Medicine 10/14/20 documented as of this encounter
--- OUTSIDE RECORDS SUMMARY | 2024-07-25 16:50 | XMS_ITS | Encounter Summary ---
Author Organization [facility] Address [address] [place] [address] Care Team Providers Care Precision Agriculture Specialist Name Role Phone Celio Marmolejo MD Primary Care Provider +1 -[phone] Miller Villalpando Primary Care Provider Unavailabl e Reason for Visit * Reason Onset Date Comments DME Request 09/01/2018 Encounter Details Date Type Department Care Team Description 09/01/2018 Telephone Pulmonology - [address] [place] [address] Diego [place] MD DME Request Social History Tobacco Use Types Packs/Day Years Used Date Smoking Tobacco: Former Cigarettes 1 Q uit: 04/02/2018 Smokeless Tobacco: Never Alcohol Use Standard Drinks/Week Comments Yes 0 (1 standard drink = 0.6 oz pur e alcohol) rarely Sex Assigned at Date Recorded Not on file documented as of this encounter Miscellaneous Notes * Telephone Encounter - Eunice Ling M.A. - 09/01/2018 4:14 PM EDT I called and let her know and gave her the phone number for [employer]. * Telephone Encounter - Diego [place] MD - 09/01/2018 2:31 PM EDT Have her call the DME, maybe they can swap it * Telephone Encounter - Eunice Ling M.A. - 09/01/2018 2:19 PM EDT Please advise. * Telephone Encounter - Yasmin Marcuszoeyrichie - 09/01/2018 10:59 AM EDT Patient called today because last night her CPAP mask split and is unable to be used. Patient stated she does not have a replacement. Patient does have a Airfit F30 (cushion) but had no success usingit. Patient asks for the next order (which is either 08/18/18 or 09/17/18), requests the AirTouch F20(small) mask. Patient said she already has the headgear. documented in this encounter Plan of Treatment Not on file documented as of this encounter Visit Diagnoses Not on filedocumented in this encounter Care Teams Precision Agriculture Specialist Relationship Specialty Start Date End Date Celio Marmolejo MD [address] [place] [address] PCP - General Internal Medicine 08/31/16 10/13/20 Miller Villalpando [address] [place] [address] PCP - General Internal Medicine 10/14/20 documented as of this encounter
--- OUTSIDE RECORDS SUMMARY | 2024-07-25 16:50 | XMS_ITS | Encounter Summary ---
Author Organization [facility] Address [address] [place] [address] Care Team Providers Care Arm Rest Builder Name Role Phone Celio Marmolejo MD Primary Care Provider +1 -[phone] Miller Villalpando Primary Care Provider Unavailabl e Reason for Visit * Reason Onset Date Comments Meat Stuffer Feedback 12/20/2017 Neurology Encounter Details Date Type Department Care Team Description 12/20/2017 Telephone Adult Medicine [address] [address] Celio Marmolejo MD [address] [place] [address] Meat Stuffer Feedback (Neurology) Social History Tobacco Use Types Packs/Day Years Used Date Smoking Tobacco: Former Cigarettes 1 Q uit: 10/14/2017 Smokeless Tobacco: Never Alcohol Use Standard Drinks/Week Comments Yes 0 (1 standard drink = 0.6 oz pur e alcohol) rarely Sex Assigned at Date Recorded Not on file documented as of this encounter Miscellaneous Notes * Telephone Encounter - Cordelia Gusman L.P.N. - 12/20/2017 11:42 AM EDT Pt notified . * Telephone Encounter - Ermaaxel Rick - 12/20/2017 11:38 AM EDT Cordelia Yo Can you please let the patient know that we pended another order to her PCP so she can see Dr. Aquino and she needs to contact Dr. Johnson office to cancel her appointment thank you. * Telephone Encounter - Cordelia Gusman L.P.N. - 12/20/2017 11:10 AM EDT A referral was done to Neurology on 11/25 and pt was sent a letter about an appt with Dr Johnson on 12/29. Pt states she is an established pt of Dr Tineo and would prefer to see this office .States she normally see's a STREETS AND BUILDINGS DECORATOR named Kary. * Telephone Encounter - Jabari Medina - 12/20/2017 10:28 AM EDT Caller requesting call back from provider: Is the caller the patient? YES Reason for call back: Patient is questioning referral to neurology. Currently seeing someone for neurology Dr. North. Does she need to see Dr. Johnson? Caller offered to speak with the nurse for assistance: YES Response: Patient offered to speak with nurse for assistance and patient agreed. Message forwarded to nurse. documented in this encounter Plan of Treatment Not on file documented as of this encounter Visit Diagnoses Not on filedocumented in this encounter Care Teams Arm Rest Builder Relationship Specialty Start Date End Date Celio Marmolejo MD [address] [place] [address] PCP - General Internal Medicine 08/31/16 10/13/20 Miller Villalpando [address] [place] [address] PCP - General Internal Medicine 10/14/20 documented as of this encounter
--- OUTSIDE RECORDS SUMMARY | 2024-07-25 16:50 | XMS_ITS | Encounter Summary ---
Author Organization [facility] Address [address] [place] [address] Care Team Providers Care Typing Secretary Name Role Phone Celio Marmolejo MD Primary Care Provider +1 -[phone] Miller Villalpando Primary Care Provider Unavailabl e Reason for Visit * Reason Onset Date Comments Pre Op Visit 05/14/2017 Encounter Details Date Type Department Care Team Description 05/14/2017 Telephone Adult Medicine [address] [address] Celio Marmolejo MD [address] [place] [address] Pre Op Visit Social History Tobacco Use [...] 10:[address] Byrd works at [facility] [employer] * Telephone Encounter - Mary Ann Luis L.P.N. - 05/20/2017 9:[address] Byrd is not in this general surg office in [address] [place] [address] * Telephone Encounter - Estefanía Humphries M.A. - 05/14/2017 3:22 PM EST Pyote send to [facility]. Thank you * Telephone Encounter - Haylee Felder - 05/14/2017 3:19 PM EST Date of surgery:06/18/17 What surgery is patient having (gall bladder, cataract, appendix, etc...)?: Right foot surgery Surgeon's name: DR. Ghulam Byrd Office phone number of surgeon: [phone] Fax # for surgeons office: NA Where is surgery being performed? [facility] Admitting Diagnosis/problem for surgery: fracture PCP: Celio Marmolejo Did you verify that the insurance below is correct? YES Patients insurance: [place] / [place]: [place] / Product Type: MEDICARE [id number] documented in this encounter Plan of Treatment Not on file documented as of this encounter Visit Diagnoses Not on filedocumented in this encounter Care Teams Typing Secretary Relationship Specialty Start Date End Date Celio Marmolejo MD [address] [place] [address] PCP - General Internal Medicine 08/31/16 10/13/20 Miller Villalpando [address] [place] [address] PCP - General Internal Medicine 10/14/20 documented as of this encounter
--- OUTSIDE RECORDS SUMMARY | 2024-07-25 16:50 | XMS_ITS | Encounter Summary ---
Author Organization [facility] Address [address] [place] [address] Care Team Providers Care Fence Post Cutter Name Role Phone Celio Marmolejo MD Primary Care Provider +1 -[phone] Miller Villalpando Primary Care Provider Unavailabl e Encounter Details Date Type Department Care Team Description 08/16/2017 [facility] Medical Records [address] [place] [address] Abstract, Provider Social History Tobacco Use Types [...] on filedocumented in this encounter Care Teams Fence Post Cutter Relationship Specialty Start Date End Date Celio Marmolejo MD [address] [place] [address] PCP - General Internal Medicine 08/31/16 10/13/20 Miller Villalpando [address] [place] [address] PCP - General Internal Medicine 10/14/20 documented as of this encounter
--- OUTSIDE RECORDS SUMMARY | 2024-07-25 16:50 | XMS_ITS | Encounter Summary ---
Author Organization [facility] Address [address] [place] [address] Care Team Providers Care Interpreter For The Deaf Name Role Phone Celio Marmolejo MD Primary Care Provider +1 -[phone] Miller Villalpando Primary Care Provider Unavailabl e Encounter Details Date Type Department Care Team Description 09/15/2017 Orders Only Pulmonology - [address] [place] [address] Mary Ann Ratliff NP Social [...] on filedocumented in this encounter Care Teams Interpreter For The Deaf Relationship Specialty Start Date End Date Celio Marmolejo MD [address] [place] [address] PCP - General Internal Medicine 08/31/16 10/13/20 Miller Villalpando [address] [place] [address] PCP - General Internal Medicine 10/14/20 documented as of this encounter
--- OUTSIDE RECORDS SUMMARY | 2024-07-25 16:50 | XMS_ITS | Encounter Summary ---
Author Organization [facility] Address [address] [place] [address] Care Team Providers Care Clerical Grader Name Role Phone Celio Marmolejo MD Primary Care Provider +1 -[phone] Miller Villalpando Primary Care Provider Unavailabl e Encounter Details Date Type Department Care Team Description 11/17/2017 Orders Only Podiatry - [address] [address] Ghulam Byrd DPM Other chronic osteomyelitis of [...] Ghulam Byrd DPM RADIOLOGY Performing Organization Address [facility] de Phone Number SAGAR MONSON OTHER EXTERNAL * RBC SEDIMENTATION RATE, NON-AUTO (11/17/2017 2:27 PM EDT) Pathologist [facility] ESR 20 0 - 30 mm/hr 11/17/2017 7:21 PM EDT [facility] 11/17/2017 2:27 PM EDT 11/17/2017 2:27 PM EDT Ghulam Byrd DPM LAB Performing Organization Address [facility] de Phone Number [place] [phone] [facility] * C-REACTIVE PROTEIN HIGH SENSITIVITY (11/17/2017 2:27 PM EDT) Pathologist [facility] CARDIO CRP- HIGH SENSITIVE 16.4 mg/L 11/17/2017 8:13 PM EDT [facility] Comment: Cardio CRP Relative Risk Categories Low [...] Ghulam Byrd DPM LAB Performing Organization Address [facility] de Phone Number [facility] * (ABNORMAL) CBC (AUTO DIFF PLATELET) (11/17/2017 2:27 PM EDT) WBC 5.4 4.8 - 10.8 x10-3 11/17/2017 5:56 PM EDT [facility] RBC 3.9 3.8 - 4.8 x10-6 11/17/2017 5:56 PM EDT [facility] HGB 12.7 11.5 - 16.0 g/dl 11/17/2017 5:56 PM EDT [facility] HCT 39.0 35 - 47 % 11/17/2017 5:56 PM EDT [facility] MCV 101.0(H) 79 - 98 fl 11/17/2017 5:56 PM EDT [facility] MCH 32.9(H) 27 - 32 [...] - 11 fl 11/17/2017 5:56 PM EDT [facility] NEUT % 56.2 41 - 85 % 11/17/2017 5:56 PM EDT [facility] LYMPH % 30.7 15 - 48 % 11/17/2017 5:56 PM EDT [facility] MONO % 11.2 0 - 12 % 11/17/2017 5:56 PM EDT [facility] EOS % 1.5 0 - 5 % 11/17/2017 5:56 PM EDT [facility] BASO % 0.4 0 - 2 % 11/17/2017 5:56 PM EDT [facility] 11/17/2017 2:27 PM EDT 11/17/2017 2:27 PM EDT Ghulam Bryd DPM LAB Performing Organization Address City/State[facility] de Phone Number [facility] [address] [facility] documented in this encounter Visit Diagnoses Diagnosis Other chronic osteomyelitis of right foot (HCC)- Primary Other chronic osteomyelitis of right foot (HCC) documented in this encounter Care Teams Clerical Grader Relationship Specialty Start Date End Date Celio Marmolejo MD [address] [place] [address] PCP - General Internal Medicine 08/31/16 10/13/20 Miller Villalpando [address] [place] [address] PCP - General Internal Medicine 10/14/20 documented as of this encounter
--- OUTSIDE RECORDS SUMMARY | 2024-07-25 16:50 | XMS_ITS | Encounter Summary ---
Author Organization [facility] Address [address] [place] [address] Care Team Providers Care Vehicle Calibration Engineer Name Role Phone Celio Marmolejo MD Primary Care Provider +1 -[phone] Miller Villalpando Primary Care Provider Unavailabl e Reason for Visit * Reason Comments E-prescribe Rx Request Encounter Details Date Type Department Care Team Description 09/01/2020 Refill Adult Medicine - [address] [id number] Celio Marmolejo MD [address] [place] [address] E-prescribe Rx Request Social History Tobacco Use [...] - MEDICARE / Plan: MEDICARE FFS $5 [place] [id number] / Product Type: MEDICARE [id number] Insurance ID #: [id number] documented in this encounter Plan of Treatment Not on file documented as of this encounter Visit Diagnoses Not on filedocumented in this encounter Care Teams Vehicle Calibration Engineer Relationship Specialty Start Date End Date Celio Marmolejo MD [address] [place] [address] PCP - General Internal Medicine 08/31/16 10/13/20 Miller Villalpando [address] [place] [address] PCP - General Internal Medicine 10/14/20 documented as of this encounter
--- OUTSIDE RECORDS SUMMARY | 2024-07-25 16:50 | XMS_ITS | Encounter Summary ---
Author Organization [facility] Address [address] [place] [address] Care Team Providers Care Locomotive Firer/Fireman Name Role Phone Celio Marmolejo MD Primary Care Provider +1 -[phone] Miller Villalpando Primary Care Provider Unavailabl e Encounter Details Date Type Department Care Team Description 01/13/2018 Orders Only Podiatry - [place] [address] [place] [address] Ghulam Byrd DPM Other chronic osteomyelitis of [...] - 0.80 mg/dL 01/18/2018 3:30 PM EDT [facility] 01/18/2018 1:35 PM EDT 01/18/2018 1:35 PM EDT Ghulam Byrd DPM LAB [facility] [employer] [address] [place] [address] * RBC SEDIMENTATION RATE, NON-AUTO (01/18/2018 1:35 PM EDT) ESR 10 0 - 30 mm/hr 01/18/2018 3:08 PM EDT [facility] 01/18/2018 1:35 PM EDT 01/18/2018 1:35 PM EDT Ghulam Byrd DPM LAB [facility] [address] [facility] * X-RAY EXAM OF FOOT, COMPLETE [...] (HCC) documented in this encounter Care Teams Locomotive Firer/Fireman Relationship Specialty Start Date End Date Celio Marmolejo MD [address] [place] [address] PCP - General Internal Medicine 08/31/16 10/13/20 Miller Villalpando [address] [place] [address] PCP - General Internal Medicine 10/14/20 documented as of this encounter
--- OUTSIDE RECORDS SUMMARY | 2024-07-25 16:50 | XMS_ITS | Encounter Summary ---
Author Organization [facility] Address [address] [place] [address] Care Team Providers Care Basketball Assembler Name Role Phone Celio Marmolejo MD Primary Care Provider +1 -[phone] Miller Villalpando Primary Care Provider Unavailabl e Reason for Visit * Reason Onset Date Comments [facility] Encounter Details Date Type Department Care Team Description 11/22/2019 Telephone Medicine/Pediatrics - [address] [address] Pretty Salazar NP [address] [place] [address] [facility] Social History Tobacco Use Types Packs/Day Years [...] 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 She is traveling tomorrow AM. * Telephone [...] 11/22/2019 11:15 AM EDT Call placed to [facility] Covid Testing facility. Patient info confirmed: Appt scheduled 11-24-19 at 10:35am at [address] [place] [address] Orders hand faxed to [phone] documented in this encounter Plan of Treatment Not on file documented as of this encounter Visit Diagnoses Not on filedocumented in this encounter Care Teams Basketball Assembler Relationship Specialty Start Date End Date Celio Marmolejo MD [address] [place] [address] PCP - General Internal Medicine 08/31/16 10/13/20 Miller Villalpando [address] [place] [address] PCP - General Internal Medicine 10/14/20 documented as of this encounter
--- OUTSIDE RECORDS SUMMARY | 2024-07-25 16:50 | XMS_ITS | Encounter Summary ---
Author Organization [facility] Address [address] [place] [address] Care Team Providers Care Dot Compliance Specialist Name Role Phone Celio Marmolejo MD Primary Care Provider +1 -[phone] Miller Villalpando Primary Care Provider Unavailabl e Encounter Details Date Type Department Care Team Description 06/22/2019 Cupola Melting Supervisor Report Medical Records [address] [place] [address] Diego Hartley MD Social History Tobacco Use [...] on filedocumented in this encounter Care Teams Dot Compliance Specialist Relationship Specialty Start Date End Date Celio Marmolejo MD [address] [place] [address] PCP - General Internal Medicine 08/31/16 10/13/20 Miller Villalpando [address] [place] [address] PCP - General Internal Medicine 10/14/20 documented as of this encounter
--- OUTSIDE RECORDS SUMMARY | 2024-07-25 16:50 | XMS_ITS | Encounter Summary ---
Author Organization [facility] Address [address] [place] [address] Care Team Providers Care Hotel Maintenance Engineer Name Role Phone Celio Marmolejo MD Primary Care Provider +1 -[phone] Miller Villalpando Primary Care Provider Unavailabl e Reason for Visit * Reason Onset Date Comments Faxed Order 10/01/2017 Encounter Details Date Type Department Care Team Description 10/01/2017 Telephone Podiatry - [place] [address] [place] [address] Ghulam Byrd DPM Faxed Order Social History [...] patient last Wednesday on the telephonefrom my [place] office * Telephone Encounter - Gayla Liz [...] xray of her foot. Pt requesting new border guard offered to speak with the nurse for assistance: YES Response: Patient offered to speak with nurse for assistance and patient agreed. Message forwarded to nurse. documented in this encounter Plan of Treatment Not on file documented as of this encounter Visit Diagnoses Not on filedocumented in this encounter Care Teams Hotel Maintenance Engineer Relationship Specialty Start Date End Date Celio Marmolejo MD [address] [place] [address] PCP - General Internal Medicine 08/31/16 10/13/20 Miller Villalpando [address] [place] [address] PCP - General Internal Medicine 10/14/20 documented as of this encounter
--- OUTSIDE RECORDS SUMMARY | 2024-07-25 16:50 | XMS_ITS | Encounter Summary ---
Author Organization [facility] Address [address] [place] [address] Care Team Providers Care Kiln Pusher Name Role Phone Celio Marmolejo MD Primary Care Provider +1 -[phone] Miller Villalpando Primary Care Provider Unavailabl e Encounter Details Date Type Department Care Team Description 07/09/2020 Old Medical Records Medical Records [address] [place] [address] Abstract, Provider Social History Tobacco Use Types [...] on filedocumented in this encounter Care Teams Kiln Pusher Relationship Specialty Start Date End Date Celio Marmolejo MD [address] [place] [address] PCP - General Internal Medicine 08/31/16 10/13/20 Miller Villalpando [address] [place] [address] PCP - General Internal Medicine 10/14/20 documented as of this encounter
--- OUTSIDE RECORDS SUMMARY | 2024-07-25 16:50 | XMS_ITS | Encounter Summary ---
Author Organization [facility] Address [address] [place] [address] Care Team Providers Care Continuous Wave Operator Name Role Phone Celio Marmolejo MD Primary Care Provider +1 -[phone] Miller Villalpando Primary Care Provider Unavailabl e Encounter Details Date Type Department Care Team Description 09/22/2016 Release of Information Medical Records [address] [place] [address] Abstract, Provider Social History Tobacco Use Types [...] filedocumented in this encounter Care Teams Continuous Wave Operator Relationship Specialty Start Date End Date Celio Marmolejo MD [address] [place], [place] [phone] PCP - General Internal Medicine 08/31/16 10/13/20 Miller Villalpando [address] [place] [address] PCP - General Internal Medicine 10/14/20 documented as of this encounter
--- OUTSIDE RECORDS SUMMARY | 2024-07-25 16:50 | XMS_ITS | Encounter Summary ---
Author Organization [facility] Address [address] [place] [address] Care Team Providers Care Clutch Rebuilder Name Role Phone Celio Marmolejo MD Primary Care Provider +1 -[phone] Miller Villalpando Primary Care Provider Unavailabl e Encounter Details Date Type Department Care Team Description 09/05/2020 Orders Only Podiatry - [address] [address] Ghulam Byrd, DPM Social History Tobacco Use [...] on filedocumented in this encounter Care Teams Clutch Rebuilder Relationship Specialty Start Date End Date Celio Marmolejo MD [address] [place] [address] PCP - General Internal Medicine 08/31/16 10/13/20 Miller Villalpando [address] [place] [address] PCP - General Internal Medicine 10/14/20 documented as of this encounter
--- OUTSIDE RECORDS SUMMARY | 2024-07-25 16:50 | XMS_ITS | Encounter Summary ---
Author Organization [facility] Address [address] [place] [address] Care Team Providers Care Rag Inspector Name Role Phone Celio Marmolejo MD Primary Care Provider +1 -[phone] Miller Villalpando Primary Care Provider Unavailabl e Reason for Referral * EXTERNAL (Routine) - Authorized/Booked Specialty Diagnoses / Procedures Referred By Contac t Referred To Contact PEWTER FINISHER / Genetics Diagnoses History of colonic polyps Procedures REFERRAL TO EXTERNAL ADULT GENETIC COUNSELING-EXTERNAL Laura Espinal PA-C [address] [place] [address] [facility] [address] [place] [address] Referral ID Status Reason Start Date Expiration Date V isits Requested Visits Authorized SEE NOTE Authorized/B ooked 05/26/2017 08/29/2017 1 1 Reason for Visit * Reason Onset Date Comments REFERRAL 05/26/2017 Encounter Details Date Type Department Care Team Description 05/26/2017 Telephone Genetic & Disease Counseling - [place] [address] [place] [address] Laura Espinal PA-C REFERRAL Social History Tobacco Use Types Packs/Day Years Used Date Smoking Tobacco: Former Cigarettes 1 Smokeless Tobacco: Never Comments:Quit x one month ag o Alcohol Use Standard Drinks/Week Comments Yes 0 (1 standard drink = 0.6 oz pur e alcohol) rarely Sex Assigned at Date Recorded Not on file documented as of this encounter Miscellaneous Notes * Telephone Encounter - Morro Serna MD - 05/26/2017 11:18 AM EST Thank you. Done. * Telephone Encounter - Geneva Klein - 05/26/2017 11:06 AM EST Please sign this pended external order for genetic counseling to [facility]. Pt has MEDICARE& MEDICAID and the insurance does not cover genetic counseling at [place]. I am removing thispt's order from the genetic testing schedule. Order expires 05/24/18,MEDICARE & MEDICAID. Thank you. documented in this encounter Plan of Treatment Not on file documented as of this encounter Visit Diagnoses Diagnosis History of colonic polyps- Primary Personal history of colonic polyps documented in this encounter Care Teams Rag Inspector Relationship Specialty Start Date End Date Celio Marmolejo MD [address] [place] [address] PCP - General Internal Medicine 08/31/16 10/13/20 Miller Villalpando [address] [place] [address] PCP - General Internal Medicine 10/14/20 documented as of this encounter
--- OUTSIDE RECORDS SUMMARY | 2024-07-25 16:50 | XMS_ITS | Encounter Summary ---
Author Organization [facility] Address [address] [place] [address] Care Team Providers Care Music Intern Name Role Phone Celio Marmolejo MD Primary Care Provider +1 -[phone] Miller Villalpando Primary Care Provider Unavailabl e Encounter Details Date Type Department Care Team Description 06/18/2017 Hospital Medical Records [address] [place] [address] Ghulam Byrd, DPM Social History Tobacco Use [...] on filedocumented in this encounter Care Teams Music Intern Relationship Specialty Start Date End Date Celio Marmolejo MD [address] [place], [place] [phone] PCP - General Internal Medicine 08/31/16 10/13/20 Miller Villalpando [address] [place] [address] PCP - General Internal Medicine 10/14/20 documented as of this encounter
--- OUTSIDE RECORDS SUMMARY | 2024-07-25 16:50 | XMS_ITS | Encounter Summary ---
Author Organization [facility] Address [address] [place] [address] Care Team Providers Care Automotive Lube Technician Name Role Phone Celio Marmolejo MD Primary Care Provider +1 -[phone] Miller Villalpando Primary Care Provider Unavailabl e Reason for Visit * Reason Onset Date Comments Infiltrates 11/08/2017 [email or web address] Encounter Details Date Type Department Care Team Description 11/08/2017 Telephone Pulmonology - [address] [place] [address] Diego Hartley MD Infiltrates (pnuemonia [...] go to the ER.FYI.she will go to [facility] ED. * Telephone Encounter - Gabriela Holland - 11/08/2017 9:43 AM EDT [id number] Patient is calling in due to double [...] on filedocumented in this encounter Care Teams Automotive Lube Technician Relationship Specialty Start Date End Date Celio Marmolejo MD [address] [place] [address] PCP - General Internal Medicine 08/31/16 10/13/20 Miller Villalpando [address] [place] [address] PCP - General Internal Medicine 10/14/20 documented as of this encounter
--- OUTSIDE RECORDS SUMMARY | 2024-07-25 16:51 | XMS_ITS | Encounter Summary ---
Author Organization [facility] Address [address] [place] [address] Care Team Providers Care Stevedoring Superintendent Name Role Phone Celio Marmolejo MD Primary Care Provider +1 -[phone] Miller Villalpando Primary Care Provider Unavailabl e Reason for Visit * Reason Comments E-prescribe Rx Request Encounter Details Date Type Department Care Team Description 04/15/2018 Refill Adult Medicine [address] [address] Diego Hartley MD E-prescribe Rx Request Social [...] PATIENT'S LAST APPOINTMENT WITH THE PRESCRIBING PROVIDER? [id number] Does patient have an upcoming appointment? Yes [id number] (THE MEDICATION REQUESTED IS ON THE MED LIST ABOVE) All of the medications requested were on the CURRENT MEDS list Did you check the Pharmacy information above?: YES Patient wants: 90 -day supply Is this a mail order prescription request ? NO Patients current insurance carrier is: [place] / [place] / Product Type: MEDICARE [id number] documented in this encounter Plan of Treatment Not on file documented as of this encounter Visit Diagnoses Not on filedocumented in this encounter Care Teams Stevedoring Superintendent Relationship Specialty Start Date End Date Celio Marmolejo MD [address] [place] [address] PCP - General Internal Medicine 08/31/16 10/13/20 Miller Villalpando [address] [place] [address] PCP - General Internal Medicine 10/14/20 documented as of this encounter
--- OUTSIDE RECORDS SUMMARY | 2024-07-25 16:51 | XMS_ITS | Encounter Summary ---
Author Organization [facility] Address [address] [place] [address] Care Team Providers Care Cold Meat Cook Name Role Phone Celio Marmolejo MD Primary Care Provider +1 -[phone] Miller Villalpando Primary Care Provider Unavailabl e Encounter Details Date Type Department Care Team Description 02/22/2017 Speech Clinician Report Medical Records [address] [place] [address] Abstract, Provider Social History Tobacco Use Types [...] on filedocumented in this encounter Care Teams Cold Meat Cook Relationship Specialty Start Date End Date Celio Marmolejo MD [address] [place], [place] [phone] PCP - General Internal Medicine 08/31/16 10/13/20 Miller Villalpando [address] [place] [address] PCP - General Internal Medicine 10/14/20 documented as of this encounter
--- OUTSIDE RECORDS SUMMARY | 2024-07-25 16:51 | XMS_ITS | Encounter Summary ---
Author Organization [facility] Address [address] [place] [address] Care Team Providers Care Highway Maintainer Name Role Phone Celio Marmolejo MD Primary Care Provider +1 -[phone] Miller Villalpando Primary Care Provider Unavailabl e Reason for Visit * Reason Onset Date Comments Nuclear Stress Testing 03/30/2017 Encounter Details Date Type Department Care Team Description 03/30/2017 Telephone Cardiology - [place] [address] [place], [place] [phone] Sita Mahoney MD [address] [place], [place] [phone] Nuclear Stress Testing Social History Tobacco Use [...] before she does this test. Please advise Medicare/etouchesid No auth Req km 03/23/17 documented in this encounter Plan of Treatment Not on file documented as of this encounter Visit Diagnoses Not on filedocumented in this encounter Care Teams Highway Maintainer Relationship Specialty Start Date End Date Celio Marmolejo MD [address] [place] [address] PCP - General Internal Medicine 08/31/16 10/13/20 Miller Villalpando [address] [place] [address] PCP - General Internal Medicine 10/14/20 documented as of this encounter
--- OUTSIDE RECORDS SUMMARY | 2024-07-25 16:51 | XMS_ITS | Encounter Summary ---
Author Organization [facility] Address [address] [place] [address] Care Team Providers Care It Associate Name Role Phone Celio Marmolejo MD Primary Care Provider [phone] Miller Villalpando Primary Care Provider Unavailabl e Encounter Details Date Type Department Care Team Description 12/22/2016 [employer] English Teacher Report Medical Records [address] [place] [address] Michela Salazar Social History Tobacco Use Types [...] filedocumented in this encounter Care Teams It Associate Relationship Specialty Start Date End Date Celio Marmolejo MD [address] [place] [address] PCP - General Internal Medicine 08/31/16 10/13/20 Miller Villalpando [address] [place] [address] PCP - General Internal Medicine 10/14/20 documented as of this encounter
--- OUTSIDE RECORDS SUMMARY | 2024-07-25 16:51 | XMS_ITS | Encounter Summary ---
Author Organization [facility] Address [address] [place] [address] Care Team Providers Care Hat Conditioner Name Role Phone Miller Villalpando Primary Care Provider Alejandro hinton Encounter Details Date Type Department Care Team Description 10/24/2020 SCAN Medical Records [address] [place] [address] Abstract, Provider Social History Tobacco Use Types [...] on filedocumented in this encounter Care Teams Hat Conditioner Relationship Specialty Start Date End Date Miller Villalpando PCP - General Internal Medicine 10/14/20 documented as of this encounter
== END 2024-07-25 14:32 | disposition home or self-care (01) ==
LOC: HO.HGI 13:39
PROVIDERS: PCP Internal Medicine; Visit Provider Nurse Practitioner
DX: D12.6 Benign neoplasm of colon, unspecified (principal); K52.9 Noninfective gastroenteritis and colitis, unspecified; R10.9 Unspecified abdominal pain; K92.2 Gastrointestinal hemorrhage, unspecified
CPT/HCPCS: 99213

== ENCOUNTER → 2024-07-25 13:38 | Outpatient (BNVA) | payer MEDICARE, MEDICAID, SELFPAY | PROVIDERS: PCP Internal Medicine; Visit Provider Nurse Practitioner | DX: D12.6 Benign neoplasm of colon, unspecified (principal); K52.9 Noninfective gastroenteritis and colitis, unspecified; K92.2 Gastrointestinal hemorrhage, unspecified; R10.9 Unspecified abdominal pain | CPT/HCPCS: 99212 ==

== ENCOUNTER 2024-07-27 07:46 | Day surgery (SDC) | payer MEDICARE, MEDICAID, SELFPAY ==
--- OUTSIDE RECORDS SUMMARY | 2024-07-04 17:51 | XMS_ITS | Clinical Summary ---
Author Organization [facility] Address [address] [place] [address] Care Team Providers Care Tool Rental Technician Name Role Phone Miller Villalpando MD Primary Care Provider [phone] Surgical History Surgery Date Site/Laterality Comments OTHER SURGICAL HISTORY PROCEDURE: ---- OTHER ----; COMMENT: right upper apex lung lobe removed APPENDECTOMY PROCEDURE: HISTORICAL APPENDECTOMY COLONOSCOPY 03/15/2014 [facility] PROCEDURE: HISTORICAL COLONOSCOPY; COMMENT: Two 8-10 mm adenomas; repeat in 3 yrs OTHER SURGICAL HISTORY 03/05/2014 PROCEDURE: SD ESOPHAGOSCOPY FLEXIBLE TRANSORAL DIAGNOSTIC; COMMENT: small HH; [...] high-fiber diet COLONOSCOPY W/ POLYPECTOMY 09/09/2017 PROCEDURE: SD COLSC FLX W/RMVL OF TUMOR POLYP LESION SNARE TQ; COMMENT: 12 small polyps, all adenomas; hemorrhoids. Repeat in 3 years under propofol OTHER SURGICAL HISTORY PROCEDURE: IMPLANT BREAST SILICONE/EQ TUBAL LIGATION PROCEDURE: HISTORICAL TUBAL LIGATION OTHER SURGICAL HISTORY PROCEDURE: SD REMOVAL OF LUNG PNEUMONECTOMY Medical History Medical History Date Comments Asthma 09/22/2016 DX:Asthma COPD (chronic obstructive pu lmonary disease) (CMS/HCC) 09/22/2016 DX:COPD (chronic obstructive pulmonary disease) (HCC) Chronic bronchitis (CMS/HCC) 09/22/2016 DX: Chronic bronchitis (HCC) Bronchiectasis (CMS/HCC) 09/22/2016 DX:Bron chiectasis (HCC) Mitral valve prolapse 09/22/2016 DX:Mitral valve prolapse Restless leg syndrome 09/22/2016 DX:Restles s leg syndrome; COMMENT: Sees neurologist (Dr Nnacy Donato) Migraine 09/22/2016 DX:Migraine Anxiety 09/22/2016 DX:Anxiety [...] RESULTING AGENCY - 05/28/2020 10:55 AM EST [id number] THINPREP PAP, IMAGED: NEGATIVE FOR SQUAMOUS INTRAEPITHELIAL [...] Recently Relevant to Health Maintenance Care Teams Tool Rental Technician Relationship Specialty Start Date End Date Miller Villalpando MD [address] [place] [address] PCP - General Internal Medicine 10/14/20
[2024-07-25 14:10] VITALS: BMI 25.1
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
[2024-07-27 08:02] VITALS: BMI 24.7
[2024-07-27] MEDS: Lactated Ringers 1,000 ML 100 ML IVCONT (08:06)
[2024-07-27 08:18] VITALS: BP 104/74; PULSE 102; RESP 18; TEMP 36.7; O2SAT 97
--- NOTE | 2024-07-27 09:25 | P.HPSUR_ITS ---
Pre-Procedural Eval Section A - 24 Hr Update-Section A only Date of Service: 07/27/24 Section B - Complete if H&P > 30 days Chief Complaint: screening Relevant Family History (Specify if Yes): Yes Relevant Social History: None Present Medications: see Short Stay Collaborative assessment Medical History: Significant History (Plantar fasciitis, bilateral Numbness in both hands Tachycardia Hypotension Hoarseness Right ankle pain Tinea pedis Fatigue Personal history of nicotine dependence Pre-op chest exam Colitis Tubular adenoma of colon Asthma-COPD overlap syndrome Nicotine dependence, cigarettes, uncomplicated Elevated ) History of Previous Operations: Relevant previous surgery/procedure and date(s) (H/O foot surgery Hx of breast implants, bilateral S/P lobectomy of lung Hx of colonoscopy History of appendectomy H/O tubal ligation Hx of pneumonectomy) Allergies: Allergies Allergy/AdvReac Type Severity Reaction Status Date / Time prednisone [PREDNISONE] Allergy Severe AGITATION Verified 07/27/24 08:16 doxycycline Allergy Mild Vomiting Verified 07/27/24 08:16 lactose AdvReac Intermediate Gastrointestinal Verified 07/27/24 08:16 Upset steroids Allergy Severe shakes Uncoded 07/27/24 08:16 Review of Systems Sugical H&P ROS: Negative: Constitution, Cardiovascular, Respiratory, Neurological, Psychiatric, Hem-Onc, Allergic/Immunologic, Gastrointestinal, Genitourinary, Musculoskeletal, Integumentary, Endocrine and Eyes/Ears/Nose/Thr oat Exam Surgical H&P Exam: Normal: HEENT, Normal: Heart, Normal: Lungs, Normal: Extremities, Normal: Abdomen and Normal: Neurological and Significant Findings: Skin (roscea ) Plan Diagnosis/Plan: Unchanged I have reviewed the history and physical and performed a pertinent physical examination on my patient. No changes have occurred unless specified. Time Spent With Patient Time: Total time managing care of this patient today ____ minutes.
--- NOTE | 2024-07-27 09:54 | HO.OPN-COLON ---
Colonoscopy Operative Note Operative Note Date of Service: 07/27/24 Narrative: Operative Information Procedure Description: Colonoscopy Indication: screening Anesthesia: MAC COLONOSCOPY Instrument: Olympus variable stiffness pediatric scope 190L Colonoscopy Monitoring: Vital signs and clinical assessment, continuous EKG monitoring, Pulse oximetry, Carbon Dioxide monitoring and blood pressure monitoring were done throughout the procedure. Colon withdrawal time was 9 minutes. Procedure: The patient was placed in the left lateral decubitis position and pre-procedure medications were administered. After a digital rectal examination of the ano-rectum, the video colonoscope was inserted into the rectum and advanced through the colon to the cecum/TI. The colonoscope was slowly withdrawn in a retrograde panoramic fashion and the colon mucosa was carefully examined including a retroflexed view of the rectum. Findings and interventions are described below. Procedure Difficulty: easy Findings: Terminal Ileum-normal Cecum:normal Ascending Colon: normal Transverse Colon -normal Descending Colon: 4-6 mm sessile polyp removed with cold forceps Sigmoid Colon: mild to moderate diverticulosis Rectum: Retroflexion with small internal hemorrhoids seen, grade I Anorectum - normal Intervention: cold forceps Colon preparation: [place] Bowel Preparation Scale Right colon; 2 Transverse colon: 2 Left colon; 2 (0 = Unprepared colon segment with mucosa not seen due to solid stool that cannot be cleared. 1 = Portion of mucosa of the colon segment seen, but other areas of the colon segment not well seen due to staining, residual stool and/or opaque liquid. 2 = Minor amount of residual staining, small fragments of stool and/or opaque liquid, but mucosa of colon segment seen well. 3 = Entire mucosa of colon segment seen well with no residual staining, small fragments of stool or opaque liquid) Impression and Post Procedure Diagnosis: diverticulosis colon polyp internal hemorrhoids Plan: High fiber diet leaflet Avoid straining at stool, epsom salts and sitz bath, anusol supps or cream Repeat Colonoscopy in 5 years due to FH or earlier if clinically indicated Above findings were reviewed with the patient and relevant handouts were provided if indicated.
[2024-07-27 09:59] VITALS: BP 116/67; PULSE 84; RESP 12; TEMP 36.4; O2SAT 100
[2024-07-27 10:14] VITALS: BP 127/84; PULSE 79; RESP 16; TEMP 36.4; O2SAT 98
== END 2024-07-27 10:25 | disposition home or self-care (01) ==
PROVIDERS: PCP Internal Medicine; Visit Provider Internal Medicine Gastroenterology
PROC: 0DJD8ZZ Inspection of Lower Intestinal Tract, Via Natural or Artificial Opening Endoscopic (ICD-10-PCS; CPT 45378; principal; 2024-07-27 10:00)
DX: Z12.11 Encounter for screening for malignant neoplasm of colon (principal); Z86.0101 Personal history of adenomatous and serrated colon polyps; D12.4 Benign neoplasm of descending colon; K57.30 Diverticulosis of large intestine without perforation or abscess without bleeding; K64.0 First degree hemorrhoids; K52.9 Noninfective gastroenteritis and colitis, unspecified; I95.9 Hypotension, unspecified; R00.0 Tachycardia, unspecified; J44.9 Chronic obstructive pulmonary disease, unspecified; G47.33 Obstructive sleep apnea (adult) (pediatric); R91.8 Other nonspecific abnormal finding of lung field; G89.4 Chronic pain syndrome; R53.83 Other fatigue; Z79.899 Other long term (current) drug therapy; Z99.81 Dependence on supplemental oxygen; Z99.89 Dependence on other enabling machines and devices; Z88.1 Allergy status to other antibiotic agents; Z88.8 Allergy status to other drugs, medicaments and biological substances; Z98.890 Other specified postprocedural states; F17.210 Nicotine dependence, cigarettes, uncomplicated
CPT/HCPCS: 45380; 88305; J2003; J2250; J2704

== ENCOUNTER → 2024-07-27 07:46 | Outpatient (BNV) | payer MEDICARE, MEDICAID, SELFPAY | PROVIDERS: PCP Internal Medicine; Visit Provider Internal Medicine Gastroenterology | DX: Z12.11 Encounter for screening for malignant neoplasm of colon (principal); D12.4 Benign neoplasm of descending colon; K57.30 Diverticulosis of large intestine without perforation or abscess without bleeding; K64.0 First degree hemorrhoids | CPT/HCPCS: 45380 ==

== ENCOUNTER 2024-08-03 09:00 | Outpatient (AMB) | payer MEDICARE, MEDICAID, SELFPAY ==
[2024-08-03 09:03] VITALS: BP 131/71; PULSE 107; O2SAT 94; BMI 23.8
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
--- OUTSIDE RECORDS SUMMARY | 2024-08-03 09:14 | XMS_ITS | Encounter Summary ---
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
--- OUTSIDE RECORDS SUMMARY | 2024-08-03 09:14 | XMS_ITS | Encounter Summary ---
Author Organization [facility] Address [address] [place] [address] Care Team Providers Care Hospital Cook Name Role Phone Celio Marmolejo MD Primary Care Provider [phone] [phone] Miller Villalpando Primary Care Provider Unavailabl e Encounter Details Date Type Department Care Team Description 05/23/2020 [employer] Architect Report Medical Records [address] [place] [address] Diego Hartley MD Social History Tobacco Use [...] on filedocumented in this encounter Care Teams Hospital Cook Relationship Specialty Start Date End Date Celio Marmolejo MD [address] [place] [address] PCP - General Internal Medicine 08/31/16 10/13/20 Miller Villalpando [address] [place] [address] PCP - General Internal Medicine 10/14/20 documented as of this encounter
--- OUTSIDE RECORDS SUMMARY | 2024-08-03 09:14 | XMS_ITS | Encounter Summary ---
Author Organization [facility] Address [address] [place] [address] Care Team Providers Care Leasing Representative Name Role Phone Celio Marmolejo MD Primary Care Provider [phone] Miller Villalpando Primary Care Provider Unavailabl e Reason for Visit * Reason Onset Date Comments medication problems 12/16/2017 Encounter Details Date Type Department Care Team Description 12/16/2017 Telephone Pulmonology - [address] [place] [address] Diego Hartley MD medication problems [...] - 12/16/2017 4:21 PM EDT Called, will steel pickler symbicort 80/4.5 * Telephone Encounter - Yvonne [...] on filedocumented in this encounter Care Teams Leasing Representative Relationship Specialty Start Date End Date Celio Marmolejo MD [address] [place] [address] PCP - General Internal Medicine 08/31/16 10/13/20 Miller Villalpando [address] [place] [address] PCP - General Internal Medicine 10/14/20 documented as of this encounter
--- OUTSIDE RECORDS SUMMARY | 2024-08-03 09:14 | XMS_ITS | Encounter Summary ---
Author Organization [facility] Address [address] [place] [address] Care Team Providers Care Uke Driver Name Role Phone Celio Marmolejo MD Primary Care Provider [phone] Miller Villalpando Primary Care Provider Unavailabl e Reason for Visit * Reason Onset Date Comments Testing 11/22/2019 [facility] Encounter Details Date Type Department Care Team Description 11/22/2019 Telephone Medicine/Pediatrics - [address] [id number] Pretty Salazar NP [address] [place] [address] Testing ([facility]) Social History Tobacco Use Types Packs/Day [...] verbally understands Printed and placed in patient picker / packer * Telephone Encounter - Pretty Salazar NP - 11/27/2019 9:02 AM EDT Please print AND STAMP letter from today for patient to picker / packer in [place]. She is traveling tomorrow AM. * Telephone [...] 11/22/2019 11:15 AM EDT Call placed to [facility] Testing facility. Patient info confirmed: Appt scheduled 11-24-19 at 10:35am at [address] [place] [address] Orders hand faxed to [phone] documented in this encounter Plan of Treatment Not on file documented as of this encounter Visit Diagnoses Not on filedocumented in this encounter Care Teams Uke Driver Relationship Specialty Start Date End Date Celio Marmolejo MD [address] [place] [address] PCP - General Internal Medicine 08/31/16 10/13/20 Miller Villalpando [address] [place] [address] PCP - General Internal Medicine 10/14/20 documented as of this encounter
--- OUTSIDE RECORDS SUMMARY | 2024-08-03 09:14 | XMS_ITS | Encounter Summary ---
Author Organization [facility] Address [address] [place] [address] Care Team Providers Care Dual Hose Cementer Name Role Phone Celio Marmolejo MD Primary Care Provider [phone] [phone] Miller Villalpando Primary Care Provider Unavailabl e Reason for Visit * Reason Onset Date Comments Provider Call Back 11/16/2017 Encounter Details Date Type Department Care Team Description 11/16/2017 Telephone Pulmonology - [address] [place] [address] Diego Hartley MD Provider Call [...] on filedocumented in this encounter Care Teams Dual Hose Cementer Relationship Specialty Start Date End Date Celio Marmolejo MD [address] [place] [address] PCP - General Internal Medicine 08/31/16 10/13/20 Miller Villalpando [address] [place] [address] PCP - General Internal Medicine 10/14/20 documented as of this encounter
--- OUTSIDE RECORDS SUMMARY | 2024-08-03 09:14 | XMS_ITS | Encounter Summary ---
Author Organization [facility] Address [address] [place] [address] Care Team Providers Care Arts And Humanities Council Director Name Role Phone Celio Marmolejo MD Primary Care Provider [phone] [phone] Miller Villalpando Primary Care Provider Unavailabl e Encounter Details Date Type Department Care Team Description 08/15/2019 Soft Metals Engraver Hand Report Medical Records [address] [place] [address] Diego Hartley MD Social History Tobacco Use [...] on filedocumented in this encounter Care Teams Arts [employer] Humanities Council Director Relationship Specialty Start Date End Date Celio Marmolejo MD [address] [place] [address] PCP - General Internal Medicine 08/31/16 10/13/20 Miller Villalpando [address] [place] [address] PCP - General Internal Medicine 10/14/20 documented as of this encounter
--- OUTSIDE RECORDS SUMMARY | 2024-08-03 09:14 | XMS_ITS | Encounter Summary ---
Author Organization [facility] Address [address] [place] [address] Care Team Providers Care Geophysical Drafter Name Role Phone Celio Marmolejo MD Primary Care Provider [phone] [phone] Miller Villalpando Primary Care Provider Unavailabl e Reason for Visit * Reason Onset Date Comments Lead Massage Therapist Feedback 12/20/2017 Neurology Encounter Details Date Type Department Care Team Description 12/20/2017 Telephone Adult Medicine [address] [address] Celio Marmolejo MD [address] [place] [address] Lead Massage Therapist Feedback (Neurology) Social History Tobacco Use Types [...] this office .States she normally see's a DEMAND EQUIPMENT REPAIRER named Kary. * Telephone Encounter - Jabair Medina - 12/20/2017 10:28 AM EDT Caller [...] on filedocumented in this encounter Care Teams Geophysical Drafter Relationship Specialty Start Date End Date Celio Marmolejo MD [address] [place] [address] PCP - General Internal Medicine 08/31/16 10/13/20 Miller Villalpando [address] [place] [address] PCP - General Internal Medicine 10/14/20 documented as of this encounter
--- OUTSIDE RECORDS SUMMARY | 2024-08-03 09:14 | XMS_ITS | Encounter Summary ---
Author Organization [facility] Address [address] [place] [address] Care Team Providers Care Cut To Length Operator Name Role Phone Celio Marmolejo MD Primary Care Provider +1 [phone] Miller Villalpando Primary Care Provider Unavailabl e Encounter Details Date Type Department Care Team Description 11/17/2017 Orders Only Podiatry - [address] [address] Ghulam Byrd DPM Other chronic osteomyelitis of [...] Byrd DPM RADIOLOGY Performing Organization Address [facility] de Phone Number SAGAR MONSON OTHER EXTERNAL * RBC SEDIMENTATION RATE, NON-AUTO (11/17/2017 2:27 PM EDT) Pathologist [facility] ESR 20 0 - 30 mm/hr 11/17/2017 7:21 PM EDT [facility] 11/17/2017 2:27 PM EDT 11/17/2017 2:27 PM EDT Ghulam Byrd DPM LAB Performing Organization Address [facility] de Phone Number [place] [phone] [facility] * C-REACTIVE PROTEIN HIGH SENSITIVITY (11/17/2017 2:27 PM EDT) Pathologist [facility] CARDIO CRP- HIGH SENSITIVE 16.4 mg/L 11/17/2017 8:13 PM EDT [employer] Comment: Cardio CRP Relative Risk Categories Low [...] Byrd DPM LAB Performing Organization Address [facility] de Phone Number [employer] * (ABNORMAL) CBC (AUTO DIFF PLATELET) (11/17/2017 2:27 PM EDT) WBC 5.4 4.8 - 10.8 x10-3 11/17/2017 5:56 PM EDT [facility] RBC 3.9 3.8 - 4.8 x10-6 11/17/2017 5:56 PM EDT [facility] HGB 12.7 11.5 - 16.0 g/dl 11/17/2017 5:56 PM EDT [facility] HCT 39.0 35 - 47 % 11/17/2017 5:56 PM EDT [facility] MCV 101.0(H) 79 - 98 fl 11/17/2017 5:56 PM EDT [facility] MCH 32.9(H) 27 - 32 pg 11/17/2017 5:56 PM EDT [facility] MCHC 32.6 32 - 37 g/dl 11/17/2017 5:56 PM EDT [facility] RDW 14.8 11 - 15 % 11/17/2017 5:56 PM EDT [facility] PLT COUNT 446(H) 130 - 400 x10-3 11/17/2017 5:56 PM EDT [facility] MEAN PLATELET VOLUME 9.9 7 - 11 fl 11/17/2017 5:56 PM EDT [facility] NEUT % 56.2 41 - 85 % 11/17/2017 5:56 PM EDT [facility] LYMPH % 30.7 15 - 48 % 11/17/2017 5:56 PM EDT [facility] MONO % 11.2 0 - 12 % 11/17/2017 5:56 PM EDT [facility] EOS % 1.5 0 - 5 % 11/17/2017 5:56 PM EDT [facility] BASO % 0.4 0 - 2 % 11/17/2017 5:56 PM EDT [facility] 11/17/2017 2:27 PM EDT 11/17/2017 2:27 PM EDT Ghulam Byrd DPM LAB Performing Organization Address City/State/[facility] Co de Phone Number [facility] [address] [facility] documented in this encounter Visit Diagnoses Diagnosis Other chronic osteomyelitis of right foot (HCC)- Primary Other chronic osteomyelitis of right foot (HCC) documented in this encounter Care Teams Cut To Length Operator Relationship Specialty Start Date End Date Celio Marmolejo MD [address] [place] [address] PCP - General Internal Medicine 08/31/16 10/13/20 Miller Villalpando [address] [place] [address] PCP - General Internal Medicine 10/14/20 documented as of this encounter
--- OUTSIDE RECORDS SUMMARY | 2024-08-03 09:14 | XMS_ITS | Encounter Summary ---
Author Organization [facility] Address [address] [place] [address] Care Team Providers Care Thermo Processor Name Role Phone Celio Marmolejo MD Primary Care Provider +1 [phone] Miller Villalpando Primary Care Provider Unavailabl e Encounter Details Date Type Department Care Team Description 09/14/2017 Orders Only Pulmonology - [address] [place] [address] Mary Ann Ratliff NP Social [...] on filedocumented in this encounter Care Teams Thermo Processor Relationship Specialty Start Date End Date Celio Marmolejo MD [address] [place] [address] PCP - General Internal Medicine 08/31/16 10/13/20 Miller Villalpando [address] [place] [address] PCP - General Internal Medicine 10/14/20 documented as of this encounter
--- OUTSIDE RECORDS SUMMARY | 2024-08-03 09:14 | XMS_ITS | Encounter Summary ---
Author Organization [facility] Address [address] [place] [address] Care Team Providers Care Beef Boner Name Role Phone Celio Marmolejo MD Primary Care Provider [phone] [phone] Miller Villalpando Primary Care Provider Unavailabl e Reason for Visit * Reason Onset Date Comments Provider Call Back 08/30/2017 Encounter Details Date Type Department Care Team Description 08/30/2017 Telephone Podiatry - [place] [address] [place] [address] Ghulam Byrd DPM Provider Call Back Social [...] on filedocumented in this encounter Care Teams Beef Boner Relationship Specialty Start Date End Date Celio Marmolejo MD [address] [place] [address] PCP - General Internal Medicine 08/31/16 10/13/20 Miller Villalpando [address] [place] [address] PCP - General Internal Medicine 10/14/20 documented as of this encounter
--- OUTSIDE RECORDS SUMMARY | 2024-08-03 09:14 | XMS_ITS | Encounter Summary ---
Author Organization [facility] Address [address] [place] [address] Care Team Providers Care [employer] Teacher Name Role Phone Celio Marmolejo MD Primary Care Provider [phone] [phone] Miller Villalpando Primary Care Provider Unavailabl e Encounter Details Date Type Department Care Team Description 07/30/2017 Orders Only Podiatry - [address] [address] Ghulam Byrd DPM Social History Tobacco Use [...] on filedocumented in this encounter Care Teams [employer] Teacher Relationship Specialty Start Date End Date Celio Marmolejo MD [address] [place], [place] [phone] PCP - General Internal Medicine 08/31/16 10/13/20 Miller Villalpando [address] [place] [address] PCP - General Internal Medicine 10/14/20 documented as of this encounter
--- OUTSIDE RECORDS SUMMARY | 2024-08-03 09:14 | XMS_ITS | Clinical Summary ---
Author Organization [facility] Address [address] [place] [address] Care Team Providers Care Delicatessen Clerk Name Role Phone Miller Villalpando MD Primary Care Provider [phone] Surgical History Surgery Date Site/Laterality Comments OTHER SURGICAL HISTORY PROCEDURE: ---- OTHER ----; COMMENT: right upper apex lung lobe removed APPENDECTOMY PROCEDURE: HISTORICAL APPENDECTOMY COLONOSCOPY 03/15/2014 Zeroogian PROCEDURE: HISTORICAL COLONOSCOPY; COMMENT: Two 8-10 mm adenomas; repeat in 3 yrs OTHER SURGICAL HISTORY 03/05/2014 PROCEDURE: NE ESOPHAGOSCOPY FLEXIBLE TRANSORAL DIAGNOSTIC; COMMENT: small HH; [...] high-fiber diet COLONOSCOPY W/ POLYPECTOMY 09/09/2017 PROCEDURE: NE COLSC FLX W/RMVL OF TUMOR POLYP LESION SNARE TQ; COMMENT: 12 small polyps, all adenomas; hemorrhoids. Repeat in 3 years under propofol OTHER SURGICAL HISTORY PROCEDURE: IMPLANT BREAST SILICONE/EQ TUBAL LIGATION PROCEDURE: HISTORICAL TUBAL LIGATION OTHER SURGICAL HISTORY PROCEDURE: NE REMOVAL OF LUNG PNEUMONECTOMY Medical History Medical History Date Comments Asthma 09/22/2016 DX:Asthma COPD (chronic obstructive pu lmonary disease) (CMS/HCC) 09/22/2016 DX:COPD (chronic obstructive pulmonary disease) (HCC) Chronic bronchitis (CMS/HCC) 09/22/2016 DX: Chronic bronchitis (HCC) Bronchiectasis 09/22/2016 DX:Bronchiectasi s (HCC) Mitral valve prolapse 09/22/2016 DX:Mitral valve prolapse Restless leg syndrome 09/22/2016 DX:Restles s leg syndrome; COMMENT: Sees neurologist (Dr Nanyc Donato) Migraine 09/22/2016 DX:Migraine Anxiety 09/22/2016 DX:Anxiety [...] COVID-19 Vaccine ( season) 2024 Influenza Vaccine (Season Ended) 2025 02/02/2020, 03/16/2016 DTaP,Tdap,and Td Vaccines (2 - Td or [...] RESULTING AGENCY - 05/28/2020 10:55 AM EST [id number] THINPREP PAP, IMAGED: NEGATIVE FOR SQUAMOUS INTRAEPITHELIAL [...] Recently Relevant to Health Maintenance Care Teams Delicatessen Clerk Relationship Specialty Start Date End Date Miller Villalpando MD [address] [place] [address] PCP - General Internal Medicine 10/14/20
--- OUTSIDE RECORDS SUMMARY | 2024-08-03 09:14 | XMS_ITS | Encounter Summary ---
Author Organization [facility] Address [address] [place] [address] Care Team Providers Care School Occupational Therapist Name Role Phone Celio Marmolejo MD Primary Care Provider [phone] Miller Villalpando Primary Care Provider Unavailabl e Encounter Details Date Type Department Care Team Description 04/25/2020 Telephone Adult Medicine [address] [address] Celio Marmolejo MD [address] [place] [address] Social History Tobacco Use Types Packs/Day Years [...] filedocumented in this encounter Care Teams School Occupational Therapist Relationship Specialty Start Date End Date Celio Marmolejo MD [address] [place] [address] PCP - General Internal Medicine 08/31/16 10/13/20 Miller Villalpando [address] [place] [address] PCP - General Internal Medicine 10/14/20 documented as of this encounter
--- OUTSIDE RECORDS SUMMARY | 2024-08-03 09:14 | XMS_ITS | Encounter Summary ---
Author Organization [facility] Address [address] [place] [address] Care Team Providers Care Dried Yeast Supervisor Name Role Phone Celio Marmolejo MD Primary Care Provider [phone] Miller Villalpando Primary Care Provider Unavailabl e Encounter Details Date Type Department Care Team Description 07/17/2019 Manager Traffic Report Medical Records [address] [place] [address] Diego Hartley MD Social History Tobacco Use [...] on filedocumented in this encounter Care Teams Dried Yeast Supervisor Relationship Specialty Start Date End Date Celio Marmolejo MD [address] [place] [address] PCP - General Internal Medicine 08/31/16 10/13/20 Miller Villalpando [address] [place] [address] PCP - General Internal Medicine 10/14/20 documented as of this encounter
--- OUTSIDE RECORDS SUMMARY | 2024-08-03 09:14 | XMS_ITS | Encounter Summary ---
Author Organization [facility] Address [address] [place] [address] Care Team Providers Care Cabinet And Trim Installer Name Role Phone Celio Marmolejo MD Primary Care Provider +1 -[phone] Miller Villalpando Primary Care Provider Unavailabl e Encounter Details Date Type Department Care Team Description 06/18/2017 Hospital Medical Records [address] [place] [address] Ghulam Byrd, DPM Social History Tobacco Use [...] on filedocumented in this encounter Care Teams Cabinet And Trim Installer Relationship Specialty Start Date End Date Celio Marmolejo MD [address] [place], [place] [phone] PCP - General Internal Medicine 08/31/16 10/13/20 Miller Villalpando [address] [place] [address] PCP - General Internal Medicine 10/14/20 documented as of this encounter
--- OUTSIDE RECORDS SUMMARY | 2024-08-03 09:14 | XMS_ITS | Encounter Summary ---
Author Organization [facility] Address [address] [place] [address] Care Team Providers Care Customs Examiner Name Role Phone Celio Marmolejo MD Primary Care Provider [phone] Miller Villalpando Primary Care Provider Unavailabl e Encounter Details Date Type Department Care Team Description 07/16/2020 Internist Medical Doctor Md Report Medical Records [address] [place] [address] Adali Lantigua MD Social History Tobacco Use [...] on filedocumented in this encounter Care Teams Customs Examiner Relationship Specialty Start Date End Date Celio Marmolejo MD [address] [place], [place] [phone] PCP - General Internal Medicine 08/31/16 10/13/20 Miller Villalpando [address] [place] [address] PCP - General Internal Medicine 10/14/20 documented as of this encounter
--- OUTSIDE RECORDS SUMMARY | 2024-08-03 09:14 | XMS_ITS | Encounter Summary ---
Author Organization [facility] Address [address] [place] [address] Care Team Providers Care Golf Teacher Name Role Phone Celio Marmolejo MD Primary Care Provider [phone] [phone] Miller Villalpando Primary Care Provider Unavailabl e Reason for Visit * Reason Comments E-prescribe Rx Request Encounter Details Date Type Department Care Team Description 08/29/2019 Refill Adult Medicine [address] [address] Didi Raymundo CNM E-prescribe Rx Request Social [...] EDT WHEN WAS THE PATIENTS LAST ANNUAL CO FOUNDER AND CTO EXAM? 05/24/18 Does patient have an upcoming [...] the day? NO Pay[place] / Plan[place] / Product Type: MEDICARE [id number] documented in this encounter Plan of Treatment Not on file documented as of this encounter Visit Diagnoses Not on filedocumented in this encounter Care Teams Golf Teacher Relationship Specialty Start Date End Date Celio Marmolejo MD [address] [place] [address] PCP - General Internal Medicine 08/31/16 10/13/20 Miller Villalpando [address] [place] [address] PCP - General Internal Medicine 10/14/20 documented as of this encounter
--- OUTSIDE RECORDS SUMMARY | 2024-08-03 09:15 | XMS_ITS | Encounter Summary ---
Author Organization [facility] Address [address] [place] [address] Care Team Providers Care Knitting Tester Name Role Phone Celio Marmolejo MD Primary Care Provider +1 [phone] Miller Villalpando Primary Care Provider Unavailabl e Encounter Details Date Type Department Care Team Description 05/20/2017 Transfer Records Medical Records [address] [place] [address] Abstract, Provider Social History Tobacco Use Types [...] on filedocumented in this encounter Care Teams Knitting Tester Relationship Specialty Start Date End Date Celio Marmolejo MD [address] [place] [address] PCP - General Internal Medicine 08/31/16 10/13/20 Miller Villalpando [address] [place] [address] PCP - General Internal Medicine 10/14/20 documented as of this encounter
--- OUTSIDE RECORDS SUMMARY | 2024-08-03 09:15 | XMS_ITS | Encounter Summary ---
Author Organization [facility] Address [address] [place] [address] Care Team Providers Care Weight Control Lecturer Name Role Phone Celio Marmolejo MD Primary Care Provider +1 [phone] Miller Villalpando Primary Care Provider Unavailabl e Encounter Details Date Type Department Care Team Description 10/05/2017 Orders Only Podiatry - [place] [address] [place] [address] Ghulam Byrd DPM Osteomyelitis of right foot, [...] C-REACTIVE PROTEIN (10/08/2017 2:17 PM EDT) Pathologist [facility] CRP 0.27 0.08 - 0.80 mg/dL 10/08/2017 5:11 PM EDT [facility] 10/08/2017 2:17 PM EDT 10/08/2017 2:17 PM EDT Ghulam Byrd DPM LAB [facility] [employer] [facility] [address] [facility] * RBC SEDIMENTATION RATE, NON-AUTO (10/08/2017 2:17 PM EDT) Pathologist [facility] ESR 2 0 - 30 mm/hr 10/08/2017 6:56 PM EDT [facility] 10/08/2017 2:17 PM EDT 10/08/2017 2:17 PM EDT Ghulam FERRAROM LAB Performing Organization Address [facility] Co de Phone Number [address] * CREATININE, BLOOD ASSAY (10/08/2017 2:17 PM EDT) CREAT 1.0 0.7 - 1.5 mg/dL 10/08/2017 5:11 PM EDT [facility] GFR > 60 >60 10/08/2017 5:11 PM T [facility] Comment: If patient is -Welsh, multiply result by 1.21 Chronic Kidney Disease: < 60 ml/min/1.73 square meters Kidney Failure: < 15 ml/min/1.73 square meters 10/08/2017 2:17 PM EDT 10/08/2017 2:17 PM EDT Ghulam FERRAROM LAB Performing Organization Address [facility] Phone Number [address] * (ABNORMAL) CBC (AUTO DIFF PLATELET) (10/08/2017 2:17 PM EDT) WBC 7.0 4.8 - 10.8 x10-3 10/08/2017 4:19 PM EDT [facility] RBC 4.4 3.8 - 4.8 x10-6 10/08/2017 4:19 PM EDT [facility] HGB 14.5 11.5 - 16.0 g/dl 10/08/2017 4:19 PM EDT [facility] HCT 44.1 35 - 47 % 10/08/2017 4:19 PM EDT [facility] MCV 99.8(H) 79 - 98 fl 10/08/2017 4:19 PM EDT [facility] MCH 32.8(H) 27 - 32 pg 10/08/2017 4:19 PM EDT [facility] MCHC 32.9 32 - 37 g/dl 10/08/2017 4:19 PM EDT [facility] RDW 13.8 11 - 15 % 10/08/2017 4:19 PM EDT [facility] PLT COUNT 313 130 - 400 x10-3 10/08/2017 4:19 PM EDT [facility] MEAN PLATELET VOLUME 9.8 7 - 11 fl 10/08/2017 4:19 PM EDT [facility] NEUT % 59.1 41 - 85 % 10/08/2017 4:19 PM EDT [facility] LYMPH % 30.1 15 - 48 % 10/08/2017 4:19 PM EDT [facility] MONO % 8.1 0 - 12 % 10/08/2017 4:19 PM EDT [facility] EOS % 2.0 0 - 5 % 10/08/2017 4:19 PM EDT [facility] BASO % 0.7 0 - 2 % 10/08/2017 4:19 PM EDT [facility] 10/08/2017 2:17 PM EDT 10/08/2017 2:17 PM EDT Ghulam Byrd DPM LAB Performing Organization Address City/State/[facility] Co de Phone Number [facility] [address] [facility] * X-RAY EXAM OF FOOT, [...] Primary documented in this encounter Care Teams Weight Control Lecturer Relationship Specialty Start Date End Date Celio Marmolejo MD [address] [place] [address] PCP - General Internal Medicine 08/31/16 10/13/20 Miller Villalpando [address] [place] [address] PCP - General Internal Medicine 10/14/20 documented as of this encounter
--- OUTSIDE RECORDS SUMMARY | 2024-08-03 09:15 | XMS_ITS | Encounter Summary ---
Author Organization [facility] Address [address] [place] [address] Care Team Providers Care Wig Dresser Name Role Phone Celio Marmolejo MD Primary Care Provider +1 -[phone] Miller Villalpando Primary Care Provider Unavailabl e Encounter Details Date Type Department Care Team Description 09/05/2020 Orders Only Podiatry - [address] [address] Ghulam Byrd, DPM Social History Tobacco Use [...] on filedocumented in this encounter Care Teams Wig Dresser Relationship Specialty Start Date End Date Celio Marmolejo MD [address] [place] [address] PCP - General Internal Medicine 08/31/16 10/13/20 Miller Villalpando [address] [place] [address] PCP - General Internal Medicine 10/14/20 documented as of this encounter
--- OUTSIDE RECORDS SUMMARY | 2024-08-03 09:15 | XMS_ITS | Encounter Summary ---
Author Organization [facility] Address [address] [place] [address] Care Team Providers Care Vehicle Fare Collector Name Role Phone Celio Marmolejo MD Primary Care Provider [phone] [phone] Miller Villalpando Primary Care Provider Unavailabl e Reason for Visit * Reason Onset Date Comments Medication 08/10/2018 Encounter Details Date Type Department Care Team Description 08/10/2018 Telephone Pulmonology - [place] [address] [place] [address] Diego Hartley MD Medication Social [...] filedocumented in this encounter Care Teams Vehicle Fare Collector Relationship Specialty Start Date End Date Celio Marmolejo MD [address] [place] [address] PCP - General Internal Medicine 08/31/16 10/13/20 Miller Villalpando [address] [place] [address] PCP - General Internal Medicine 10/14/20 documented as of this encounter
--- OUTSIDE RECORDS SUMMARY | 2024-08-03 09:15 | XMS_ITS | Encounter Summary ---
Author Organization [facility] Address [address] [place] [address] Care Team Providers Care Reel Stripper Name Role Phone Celio Marmolejo MD Primary Care Provider +1 [phone] Miller Villalpando Primary Care Provider Unavailabl e Encounter Details Date Type Department Care Team Description 10/12/2018 Telephone Adult [address] [address] Celio Marmolejo MD [address] [place] [address] Social History Tobacco Use Types Packs/Day Years [...] on filedocumented in this encounter Care Teams Reel Stripper Relationship Specialty Start Date End Date Celio Marmolejo MD [address] [place] [address] PCP - General Internal Medicine 08/31/16 10/13/20 Miller Villalpando [address] [place] [address] PCP - General Internal Medicine 10/14/20 documented as of this encounter
--- OUTSIDE RECORDS SUMMARY | 2024-08-03 09:15 | XMS_ITS | Clinical Summary ---
Author Organization [facility] Address [address] [place] [address] Care Team Providers Care Automobile Upholstery Trim Installer Name Role Phone Unavailable Primary Care Provider [...] 5000 PLUS) 1.1 % creaIndications :Enamel caries Ronda twice daily with toothpaste then expectorate. Do not rinse. 51 g 3 2 Active Active Problems No known active problems Encounters Date Type Department Care Team Description 06/23/2024 1:40 PM EST Office Visit [facility] [address] [place] [address] Mykel, Mary, DMD Tooth missing, unspecified edentulism (Primary Dx) 06/21/2024 1:00 PM EST Office Visit [facility] [address] [place] [address] Mykel, Mary, DMD Tooth missing, unspecified edentulism (Primary Dx) 06/16/2024 1:00 PM EST Office Visit [facility] [address] [place] [address] Katelynn Lazaro, AMISHA Symptomatic periapical periodontitis (Primary Dx) 05/18/2024 1:40 PM EST Office Visit [facility] [address] [place] [address] Daniel Hammond RHD Encounter for [...] Description 11/20/2024 10:20 AM EDT Office Visit [address] [phone] Daniel Hammond RHD [address] [place] [address] Health Maintenance Due Date Last Done Comments Anxiety Screening 1966 HPV Screening 1966 Pap + HPV 1966 Tobacco Cessation Counseling (#1) 1966 Cervical Cancer Screening 1987 Pap Smear 1987 Breast Cancer Screening (Mammogram) 2006 CT Colonography 2011 Colonoscopy 2011 Colorectal Cancer Screening 2011 FIT/gFOBT 2011 Fecal DNA 2011 Flexible Sigmoidoscopy 2011 Imm-Zoster, Recombinant (1 of 2) 02/24/2016 Diabetes Screening 07/26/2023 07/25/2020, 0 05/17/2019, 11/25/2017 [id number] ( season) 2024 Imm-Influenza (#1) 2024 02/02/2020, 03/16/2016 Alcohol and Drug Screen 05/03/2024 Depression Annual Screen 05/03/2024 Dental BW 05/20/2025 05/18/2024, 12/0 05/2022, 10/21/2022, Additional history exists Dental Examination 05/20/2025 05/18/2024, 1 06/03/2022, 10/21/2022, Additional history exists Dental Perio Charting 05/20/2025 05/18/2024 , 04/02/2023, 04/07/2022, Additional history exists Dental Prophy 05/20/2025 05/18/2024, 12/0 05/2022, 10/21/2022, Additional history exists Hypertension Screening (#1) [...]
--- OUTSIDE RECORDS SUMMARY | 2024-08-03 09:15 | XMS_ITS | Encounter Summary ---
Author Organization [facility] Address [address] [place] [address] Care Team Providers Care Rug Dyer Helper Name Role Phone Celio Marmolejo MD Primary Care Provider +1 -[phone] Miller Villalpando Primary Care Provider Unavailabl e Reason for Visit * Reason Comments E-prescribe Rx Request Encounter Details Date Type Department Care Team Description 04/15/2018 Refill Adult Medicine [address] [address] Diego Hartley MD E-prescribe Rx Request Social [...] PATIENT'S LAST APPOINTMENT WITH THE PRESCRIBING PROVIDER? [id number] Does patient have an upcoming appointment? Yes [id number] (THE MEDICATION REQUESTED IS ON THE MED LIST ABOVE) All of the medications requested were on the CURRENT MEDS list Did you check the Pharmacy information above?: YES Patient wants: 90 -day supply Is this a mail order prescription request ? NO Patients current insurance carrier is: [place] / [place] / Product Type: MEDICARE [id number] documented in this encounter Plan of Treatment Not on file documented as of this encounter Visit Diagnoses Not on filedocumented in this encounter Care Teams Rug Dyer Helper Relationship Specialty Start Date End Date Celio Marmolejo MD [address] [place] [address] PCP - General Internal Medicine 08/31/16 10/13/20 Miller Villalpando [address] [place] [address] PCP - General Internal Medicine 10/14/20 documented as of this encounter
--- OUTSIDE RECORDS SUMMARY | 2024-08-03 09:15 | XMS_ITS | Encounter Summary ---
Author Organization [facility] Address [address] [place] [address] Care Team Providers Care Milliner Helper Name Role Phone Celio Marmolejo MD Primary Care Provider +1 -[phone] Miller Villalpando Primary Care Provider Unavailabl e Encounter Details Date Type Department Care Team Description 01/11/2018 Release of Information Medical Records [address] [place] [address] Abstract, Provider Social History Tobacco Use Types [...] on filedocumented in this encounter Care Teams Milliner Helper Relationship Specialty Start Date End Date Celio Marmolejo MD [address] [place] [address] PCP - General Internal Medicine 08/31/16 10/13/20 Miller Villalpando [address] [place] [address] PCP - General Internal Medicine 10/14/20 documented as of this encounter
--- OUTSIDE RECORDS SUMMARY | 2024-08-03 09:15 | XMS_ITS | Clinical Summary ---
Author Organization [facility] Address [address] [facility] [place] [address] Care Team Providers Care Cashier Credit Name Role Phone Miller Villalpando Primary Care [...] Seizure 09/22/2016 Overview: Neurology (01/28/18): after reviewing [facility] notes, will cosnider AED. Cont [...] 03/07/2014 (External Completion), Additional history exists INFLUENZA (Season Ended) 2025 020, 02/02/2020, 05/07/2019, Additional history exists CHOLESTEROL SCREENING 07/25/2025 07/25/2020 , 05/17/2019, 12/08/2016 DTAP/TDAP/TD (2 - Td or Tdap) 04/01/2027 04/01/2017 PNEUMOCOCCAL VACCINE FOR HIG H RISK PATIENTS (#2) 2031 03/12/2015 HEPATITIS C SCREENING Completed 11/25/2017, 017 Care Teams Cashier Credit Relationship Specialty Start Date End Date Miller Villalpando PCP - General Internal Medicine 10/14/20
--- OUTSIDE RECORDS SUMMARY | 2024-08-03 09:15 | XMS_ITS | Encounter Summary ---
Author Organization [facility] Address [address] [place] [address] Care Team Providers Care Jockey Room Custodian Name Role Phone Celio Marmolejo MD Primary Care Provider +1 -[phone] Miller Villalpando Primary Care Provider Unavailabl e Encounter Details Date Type Department Care Team Description 12/22/2016 Tarp Repairer Report Medical Records [address] [place] [address] Michela Salazar Social History Tobacco Use Types [...] on filedocumented in this encounter Care Teams Jockey Room Custodian Relationship Specialty Start Date End Date Celio Marmolejo MD [address] [place] [address] PCP - General Internal Medicine 08/31/16 10/13/20 Miller Villalpando [address] [place] [address] PCP - General Internal Medicine 10/14/20 documented as of this encounter
--- OUTSIDE RECORDS SUMMARY | 2024-08-03 09:15 | XMS_ITS | Encounter Summary ---
Author Organization [facility] Address [address] [place] [address] Care Team Providers Care Citrus Peeler Name Role Phone Celio Marmolejo MD Primary Care Provider +1 -[phone] Miller Villalpando Primary Care Provider Unavailabl e Reason for Visit * Reason Onset Date Comments Infiltrates 11/08/2017 [email or web address] Encounter Details Date Type Department Care Team Description 11/08/2017 Telephone Pulmonology - [address] [place] [address] Diego Hartley MD Infiltrates (pnuemonia [...] go to the ER.FYI.she will go to [facility] ED. * Telephone Encounter - Gabriela Holland - 11/08/2017 9:43 AM EDT [id number] Patient is calling in due to double [...] on filedocumented in this encounter Care Teams Citrus Peeler Relationship Specialty Start Date End Date Celio Marmolejo MD [address] [place] [address] PCP - General Internal Medicine 08/31/16 10/13/20 Miller Villalpando [address] [place] [address] PCP - General Internal Medicine 10/14/20 documented as of this encounter
--- OUTSIDE RECORDS SUMMARY | 2024-08-03 09:15 | XMS_ITS | Encounter Summary ---
Author Organization [facility] Address [address] [place] [address] Care Team Providers Care Marine Fitter Name Role Phone Celio Marmolejo MD Primary Care Provider +1 -[phone] Miller Villalpando Primary Care Provider Unavailabl e Encounter Details Date Type Department Care Team Description 08/22/2020 Wreath Inspector Report Medical Records [address] [place] [address] Carla Sheppard Social History Tobacco Use Types [...] on filedocumented in this encounter Care Teams Marine Fitter Relationship Specialty Start Date End Date Celio Marmolejo MD [address] [place] [address] PCP - General Internal Medicine 08/31/16 10/13/20 Miller Villalpando [address] [place] [address] PCP - General Internal Medicine 10/14/20 documented as of this encounter
--- OUTSIDE RECORDS SUMMARY | 2024-08-03 09:15 | XMS_ITS | Encounter Summary ---
Author Organization [facility] Address [address] [place] [address] Care Team Providers Care Ep Specialist Name Role Phone Celio Marmolejo MD Primary Care Provider +1 -[phone] Miller Villalpando Primary Care Provider Unavailabl e Reason for Visit * Reason Comments E-prescribe Rx Request Encounter Details Date Type Department Care Team Description 06/10/2018 Refill Pulmonology - [address] [place] [address] Diego Hartley MD E-prescribe Rx [...] insurance carrier is: [place] / Plan: [place]-ManagerComplete / Product Type: MEDICARE [id number] documented in this encounter Plan of Treatment Not on file documented as of this encounter Visit Diagnoses Diagnosis Chronic obstructive pulmonary disease, unspecified COPD type (HCC) documented in this encounter Care Teams Ep Specialist Relationship Specialty Start Date End Date Celio Marmolejo MD [address] [place] [address] PCP - General Internal Medicine 08/31/16 10/13/20 Miller Villalpando [address] [place] [address] PCP - General Internal Medicine 10/14/20 documented as of this encounter
--- OUTSIDE RECORDS SUMMARY | 2024-08-03 09:15 | XMS_ITS | Encounter Summary ---
Author Organization [facility] Address [address] [place] [address] Care Team Providers Care Sheet Metal Work Furnace Installer Name Role Phone Celio Marmolejo MD Primary Care Provider +1 -[phone] Miller Villalpando Primary Care Provider Unavailabl e Reason for Visit * Reason Comments E-prescribe Rx Request Encounter Details Date Type Department Care Team Description 10/01/2020 Refill Podiatry - [place] [address] [place] [address] Ghulam Byrd DPM E-prescribe Rx Request Social [...] on filedocumented in this encounter Care Teams Sheet Metal Work Furnace Installer Relationship Specialty Start Date End Date Celio Marmolejo MD [address] [place] [address] PCP - General Internal Medicine 08/31/16 10/13/20 Miller Villalpando [address] [place] [address] PCP - General Internal Medicine 10/14/20 documented as of this encounter
--- OUTSIDE RECORDS SUMMARY | 2024-08-03 09:15 | XMS_ITS | Encounter Summary ---
Author Organization [facility] Address [address] [place] [address] Care Team Providers Care Transplant Rn Name Role Phone Celio Marmolejo MD Primary Care Provider +1 -[phone] Miller Vlilalpando Primary Care Provider Unavailabl e Reason for Visit * Reason Onset Date Comments PT-1 11/06/2016 Encounter Details Date Type Department Care Team Description 11/06/2016 Telephone Adult Medicine [address] [address] Celio Marmolejo MD [address] [place] [address] PT-1 Social History Tobacco Use Types Packs/Day [...] on filedocumented in this encounter Care Teams Transplant Rn Relationship Specialty Start Date End Date Celio Marmolejo MD [address] [place] [address] PCP - General Internal Medicine 08/31/16 10/13/20 Miller Villalpando [address] [place] [address] PCP - General Internal Medicine 10/14/20 documented as of this encounter
--- OUTSIDE RECORDS SUMMARY | 2024-08-03 09:15 | XMS_ITS | Encounter Summary ---
Author Organization [facility] Address [address] [place] [address] Care Team Providers Care Civil Draftsman Name Role Phone Celio Marmolejo MD Primary Care Provider +1 -[phone] Miller Villalpando Primary Care Provider Unavailabl e Encounter Details Date Type Department Care Team Description 04/02/2020 Paper Rewinder Report Medical Records [address] [place] [address] Erika Hernandes Social History Tobacco Use Types [...] on filedocumented in this encounter Care Teams Civil Draftsman Relationship Specialty Start Date End Date Celio Marmolejo MD [address] [place] [address] PCP - General Internal Medicine 08/31/16 10/13/20 Miller Villalpando [address] [place] [address] PCP - General Internal Medicine 10/14/20 documented as of this encounter
--- OUTSIDE RECORDS SUMMARY | 2024-08-03 09:15 | XMS_ITS | Encounter Summary ---
Author Organization [facility] Address [address] [place] [address] Care Team Providers Care Mold Dumper Name Role Phone Celio Marmolejo MD Primary Care Provider +1 -[phone] Miller Villalpando Primary Care Provider Unavailabl e Reason for Visit * Reason Onset Date Comments Faxed Order 10/01/2017 Encounter Details Date Type Department Care Team Description 10/01/2017 Telephone Podiatry - [place] [address] [place] [address] Ghulam Byrd DPM Faxed Order Social History [...] patient last Wednesday on the telephonefrom my [place] office * Telephone Encounter - Gayla Liz [...] of her foot. Pt requesting new order schedule clerk offered to speak with the nurse for assistance: YES Response: Patient offered to speak with nurse for assistance and patient agreed. Message forwarded to nurse. documented in this encounter Plan of Treatment Not on file documented as of this encounter Visit Diagnoses Not on filedocumented in this encounter Care Teams Mold Dumper Relationship Specialty Start Date End Date Celio Marmolejo MD [address] [place] [address] PCP - General Internal Medicine 08/31/16 10/13/20 Miller Villalpando [address] [place] [address] PCP - General Internal Medicine 10/14/20 documented as of this encounter
--- OUTSIDE RECORDS SUMMARY | 2024-08-03 09:15 | XMS_ITS | Encounter Summary ---
Author Organization [facility] Address [address] [place] [address] Care Team Providers Care Certified Nurse Aide Name Role Phone Celio Marmolejo MD Primary Care Provider +1 -[phone] Miller Villalpando Primary Care Provider Unavailabl e Encounter Details Date Type Department Care Team Description 09/05/2020 Nurse Informatics Educator Report Medical Records [address] [place] [address] Ghulam Byrd, MARIE Social History Tobacco Use [...] on filedocumented in this encounter Care Teams Certified Nurse Aide Relationship Specialty Start Date End Date Celio Marmolejo MD [address] [place], [place] [phone] PCP - General Internal Medicine 08/31/16 10/13/20 Miller Villalpando [address] [place] [address] PCP - General Internal Medicine 10/14/20 documented as of this encounter
--- OUTSIDE RECORDS SUMMARY | 2024-08-03 09:15 | XMS_ITS | Encounter Summary ---
Author Organization [facility] Address [address] [place] [address] Care Team Providers Care Antenna Installer Name Role Phone Celio Marmolejo MD Primary Care Provider +1 -[phone] Miller Villalpando Primary Care Provider Unavailabl e Reason for Visit * Reason Onset Date Comments Medication 11/12/2017 Encounter Details Date Type Department Care Team Description 11/12/2017 Telephone Pulmonology - [address] [place] [address] Diego Hartley MD Medication Social [...] and feels ok. * Telephone Encounter - Yvonne Miranda M.A. - 11/12/2017 3:27 PM EDT [...] on filedocumented in this encounter Care Teams Antenna Installer Relationship Specialty Start Date End Date Celio Marmolejo MD [address] [place] [address] PCP - General Internal Medicine 08/31/16 10/13/20 Miller Villalpando [address] [place] [address] PCP - General Internal Medicine 10/14/20 documented as of this encounter
--- OUTSIDE RECORDS SUMMARY | 2024-08-03 09:15 | XMS_ITS | Encounter Summary ---
Author Organization [facility] Address [address] [place] [address] Care Team Providers Care Masking Machine Operator Name Role Phone Miller Villalpando Primary Care Provider Unavailabl e Reason for Visit * Reason Onset Date Comments Transfer Records 09/17/2021 Encounter Details Date Type Department Care Team Description 09/17/2021 Telephone OBGYN - [facility] [address] [place], [place] [id number] Cheri Gaxiola, Transfer Records Social History Tobacco [...] Release of information received by fax from [facility] Requesting Entire medical recordto be faxed to [phone]. Passed to records documented in this encounter Plan of Treatment Not on file documented as of this encounter Visit Diagnoses Not on filedocumented in this encounter Care Teams Masking Machine Operator Relationship Specialty Start Date End Date Miller Villalpando PCP - General Internal Medicine 10/14/20 documented as of this encounter
--- OUTSIDE RECORDS SUMMARY | 2024-08-03 09:15 | XMS_ITS | Encounter Summary ---
Author Organization [facility] Address [address] [place] [address] Care Team Providers Care Turn Out Worker Name Role Phone Celio Marmolejo MD Primary Care Provider +1 -[phone] Miller Villalpando Primary Care Provider Unavailabl e Encounter Details Date Type Department Care Team Description 12/08/2016 Desk Interviewer Report Medical Records [address] [place] [address] Diego Hartley MD Social History Tobacco Use [...] on filedocumented in this encounter Care Teams Turn Out Worker Relationship Specialty Start Date End Date Celio Marmolejo MD [address] [place] [address] PCP - General Internal Medicine 08/31/16 10/13/20 Miller Villalpando [address] [place] [address] PCP - General Internal Medicine 10/14/20 documented as of this encounter
--- OUTSIDE RECORDS SUMMARY | 2024-08-03 09:15 | XMS_ITS | Encounter Summary ---
Author Organization [facility] Address [address] [place] [address] Care Team Providers Care Starch Factory Laborer Name Role Phone Celio Marmolejo MD Primary Care Provider +1 -[phone] Miller Villalpando Primary Care Provider Unavailabl e Reason for Visit * Reason Onset Date Comments DME Request 09/01/2018 Encounter Details Date Type Department Care Team Description 09/01/2018 Telephone Pulmonology - [address] [place] [address] Diego Hartley MD DME Request [...] on filedocumented in this encounter Care Teams Starch Factory Laborer Relationship Specialty Start Date End Date Celio Marmolejo MD [address] [place] [address] PCP - General Internal Medicine 08/31/16 10/13/20 Miller Villalpando [address] [place] [address] PCP - General Internal Medicine 10/14/20 documented as of this encounter
== END 2024-08-03 09:28 | disposition home or self-care (01) ==
LOC: HO.PMC 09:01
PROVIDERS: PCP Internal Medicine; Visit Provider Anesthesiology
DX: M47.816 Spondylosis without myelopathy or radiculopathy, lumbar region (principal); G89.4 Chronic pain syndrome; M51.369 Other intervertebral disc degeneration, lumbar region without mention of lumbar back pain or lower extremity pain
CPT/HCPCS: 99214

== ENCOUNTER → 2024-08-03 09:00 | Outpatient (BNVA) | payer MEDICARE, MEDICAID, SELFPAY | PROVIDERS: PCP Internal Medicine; Visit Provider Anesthesiology | DX: M47.816 Spondylosis without myelopathy or radiculopathy, lumbar region (principal); G89.4 Chronic pain syndrome; M51.369 Other intervertebral disc degeneration, lumbar region without mention of lumbar back pain or lower extremity pain | CPT/HCPCS: 99212 ==

== ENCOUNTER 2024-08-11 13:53 | Outpatient (AMB) | payer MEDICARE, MEDICAID, SELFPAY ==
--- OUTSIDE RECORDS SUMMARY | 2024-08-11 14:16 | XMS_ITS | Encounter Summary ---
Author Organization [facility] Address [address] [place] [address] Care Team Providers Care Food Production Machine Operator Name Role Phone Celio Marmolejo MD Primary Care Provider +1 -[phone] Miller Villalpando Primary Care Provider Unavailabl e Encounter Details Date Type Department Care Team Description 09/14/2017 Orders Only Pulmonology - [address] [place] [address] Mary Ann Ratliff NP Social [...] filedocumented in this encounter Care Teams Food Production Machine Operator Relationship Specialty Start Date End Date Celio Marmolejo MD [address] [place] [address] PCP - General Internal Medicine 08/31/16 10/13/20 Miller Villalpando [address] [place] [address] PCP - General Internal Medicine 10/14/20 documented as of this encounter
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
--- OUTSIDE RECORDS SUMMARY | 2024-08-11 14:17 | XMS_ITS | Encounter Summary ---
Author Organization [facility] Address [address] [place] [address] Care Team Providers Care Rn International Name Role Phone Celio Marmolejo MD Primary Care Provider +1 -[phone] Miller Villalpando Primary Care Provider Unavailabl e Encounter Details Date Type Department Care Team Description 10/12/2018 Telephone Adult [address] [address] Celio Marmolejo MD [address] [place] [address] Social History Tobacco Use Types Packs/Day Years [...] on filedocumented in this encounter Care Teams Rn International Relationship Specialty Start Date End Date Celio Marmolejo MD [address] [place] [address] PCP - General Internal Medicine 08/31/16 10/13/20 Miller Villalpando [address] [place] [address] PCP - General Internal Medicine 10/14/20 documented as of this encounter
--- OUTSIDE RECORDS SUMMARY | 2024-08-11 14:17 | XMS_ITS | Encounter Summary ---
Author Organization [facility] Address [address] [place] [address] Care Team Providers Care Software Application Tester Name Role Phone Celio Marmolejo MD Primary Care Provider +1 -[phone] Miller Villalpando Primary Care Provider Unavailabl e Reason for Visit * Reason Comments E-prescribe Rx Request Encounter Details Date Type Department Care Team Description 03/02/2019 Refill Pulmonology - [place] [address] [facility] [address] [place] [phone] Dylon Dotson MD [address] [place] [phone] E-prescribe Rx Request Social History Tobacco Use [...] (HCC) documented in this encounter Care Teams Software Application Tester Relationship Specialty Start Date End Date Celio Marmolejo MD [address] [place] [address] PCP - General Internal Medicine 08/31/16 10/13/20 Miller Villalpando [address] [place] [address] PCP - General Internal Medicine 10/14/20 documented as of this encounter
--- OUTSIDE RECORDS SUMMARY | 2024-08-11 14:17 | XMS_ITS | Encounter Summary ---
Author Organization [facility] Address [address] [place] [address] Care Team Providers Care Bordereau Clerk Name Role Phone Celio Marmolejo MD Primary Care Provider +1 -[phone] Miller Villalpando Primary Care Provider Unavailabl e Reason for Visit * Reason Onset Date Comments PT-1 11/06/2016 Encounter Details Date Type Department Care Team Description 11/06/2016 Telephone Adult Medicine [address] [address] Celio Marmolejo MD [address] [place] [address] PT-1 Social History Tobacco Use Types Packs/Day [...] on filedocumented in this encounter Care Teams Bordereau Clerk Relationship Specialty Start Date End Date Celio Marmolejo MD [address] [place] [address] PCP - General Internal Medicine 08/31/16 10/13/20 Miller Villalpando [address] [place] [address] PCP - General Internal Medicine 10/14/20 documented as of this encounter
--- OUTSIDE RECORDS SUMMARY | 2024-08-11 14:17 | XMS_ITS | Encounter Summary ---
Author Organization [facility] Address [address] [place] [address] Care Team Providers Care Hem Inspector Name Role Phone Celio Marmolejo MD Primary Care Provider +1 -[phone] Miller Villalpando Primary Care Provider Unavailabl e Reason for Visit * Reason Onset Date Comments TEST RESULTS 11/28/2018 Encounter Details Date Type Department Care Team Description 11/28/2018 Telephone Medicine/Pediatrics - [address] [phone] Pia Molina PA-C TEST RESULTS Social History [...] 12:50 PM EDT Left message to call [phone] * Telephone Encounter - Pia Molina PA-C [...] on filedocumented in this encounter Care Teams Hem Inspector Relationship Specialty Start Date End Date Celio Marmolejo MD [address] [place] [address] PCP - General Internal Medicine 08/31/16 10/13/20 Miller Villalpando [address] [place] [address] PCP - General Internal Medicine 10/14/20 documented as of this encounter
--- OUTSIDE RECORDS SUMMARY | 2024-08-11 14:17 | XMS_ITS | Encounter Summary ---
Author Organization [facility] Address [address] [place] [address] Care Team Providers Care Billboard Poster Name Role Phone Celio Marmolejo MD Primary Care Provider +1 -[phone] Miller Villalpando Primary Care Provider Unavailabl e Encounter Details Date Type Department Care Team Description 12/25/2014 Hospital Medical Records [address] [place] [address] [facility] Social History Tobacco Use Types Packs/Day Years [...] on filedocumented in this encounter Care Teams Billboard Poster Relationship Specialty Start Date End Date Celio Marmolejo MD [address] [place] [address] PCP - General Internal Medicine 08/31/16 10/13/20 Miller Villalpando [address] [place] [address] PCP - General Internal Medicine 10/14/20 documented as of this encounter
--- OUTSIDE RECORDS SUMMARY | 2024-08-11 14:17 | XMS_ITS | Encounter Summary ---
Author Organization [facility] Address [address] [place] [address] Care Team Providers Care Manager Application Development Name Role Phone Celio Marmolejo MD Primary Care Provider +1 -[phone] Miller Villalpando Primary Care Provider Unavailabl e Encounter Details Date Type Department Care Team Description 10/23/2019 Gravure Press Set Up Operator Report Medical Records [address] [place] [address] Abstract, Provider Social History Tobacco Use Types [...] filedocumented in this encounter Care Teams Manager Application Development Relationship Specialty Start Date End Date Celio Marmolejo MD [address] [place] [address] PCP - General Internal Medicine 08/31/16 10/13/20 Miller Villalpando [address] [place] [address] PCP - General Internal Medicine 10/14/20 documented as of this encounter
--- OUTSIDE RECORDS SUMMARY | 2024-08-11 14:17 | XMS_ITS | Encounter Summary ---
Author Organization [facility] Address [address] [place] [address] Care Team Providers Care Talend Etl Developer Name Role Phone Celio Marmolejo MD Primary Care Provider +1 -[phone] Miller Villalpando Primary Care Provider Unavailabl e Encounter Details Date Type Department Care Team Description 04/18/2014 Hospital Medical Records [address] [place] [address] Alisia Ordonez MD Social History Tobacco Use [...] on filedocumented in this encounter Care Teams Talend Etl Developer Relationship Specialty Start Date End Date Celio Marmolejo MD [address] [place], [place] [phone] PCP - General Internal Medicine 08/31/16 10/13/20 Miller Villalpando [address] [place] [address] PCP - General Internal Medicine 10/14/20 documented as of this encounter
--- OUTSIDE RECORDS SUMMARY | 2024-08-11 14:17 | XMS_ITS | Encounter Summary ---
Author Organization [facility] Address [address] [place] [address] Care Team Providers Care Tip Bander Name Role Phone Celio Marmolejo MD Primary Care Provider [phone] [phone] Miller Villalpando Primary Care Provider Unavailabl e Encounter Details Date Type Department Care Team Description 06/24/2017 Orders Only Medical Records [address] [place] [address] Ghulam Byrd DPM Social History Tobacco Use [...] Name Priority Date/Time Associated Diagnosis Comments OUTSIDE PATHOLOGY Routine 06/18/2017 documented in this encounter Results * OUTSIDE PATHOLOGY (06/18/2017) Ghulam Byrd DPM OUTSIDE LAB documented in this encounter Visit Diagnoses Not on filedocumented in this encounter Care Teams Tip Bander Relationship Specialty Start Date End Date Celio Marmolejo MD [address] [place] [address] PCP - General Internal Medicine 08/31/16 10/13/20 Miller Villalpando [address] [place] [address] PCP - General Internal Medicine 10/14/20 documented as of this encounter
--- OUTSIDE RECORDS SUMMARY | 2024-08-11 14:17 | XMS_ITS | Encounter Summary ---
Author Organization [facility] Address [address] [place] [address] Care Team Providers Care Emr Analyst Name Role Phone Celio Marmolejo MD Primary Care Provider [phone] [phone] Miller Villalpando Primary Care Provider Unavailabl e Encounter Details Date Type Department Care Team Description 05/20/2017 Transfer Records Medical Records [address] [place] [address] Abstract, Provider Social History Tobacco Use Types [...] on filedocumented in this encounter Care Teams Emr Analyst Relationship Specialty Start Date End Date Celio Marmolejo MD [address] [place] [address] PCP - General Internal Medicine 08/31/16 10/13/20 Miller Villalpando [address] [place] [address] PCP - General Internal Medicine 10/14/20 documented as of this encounter
--- OUTSIDE RECORDS SUMMARY | 2024-08-11 14:17 | XMS_ITS | Encounter Summary ---
Author Organization [facility] Address [address] [place] [address] Care Team Providers Care Leasing Associate Name Role Phone Celio Marmolejo MD Primary Care Provider [phone] [phone] Miller Villalpando Primary Care Provider Unavailabl e Reason for Referral * EXTERNAL (Routine) - Authorized/Booked Specialty Diagnoses / Procedures Referred By Contac t Referred To Contact VIDEO GAME TESTER / Genetics Diagnoses History of colonic polyps Procedures REFERRAL TO EXTERNAL ADULT GENETIC COUNSELING-EXTERNAL Laura Espinal PA-C [address] [place] [address] [facility] [address] [place] [id number] Referral ID Status Reason Start Date Expiration Date V isits Requested Visits Authorized SEE NOTE Authorized/B ooked 05/26/2017 08/29/2017 1 1 Reason for Visit * Reason Onset Date Comments REFERRAL 05/26/2017 Encounter Details Date Type Department Care Team Description 05/26/2017 Telephone Genetic & Disease Counseling - [place] [address] [place] [address] Laura Espinal PA-C REFERRAL Social History Tobacco [...] pended external order for genetic counseling to [facility] [employer]. Pt has MEDICARE& MEDICAID and the insurance does not cover genetic counseling at [place]. I am removing thispt's order from the genetic testing schedule. Order expires 05/24/18,MEDICARE & MEDICAID. Thank you. documented in this encounter Plan of Treatment Not on file documented as of this encounter Visit Diagnoses Diagnosis History of colonic polyps- Primary Personal history of colonic polyps documented in this encounter Care Teams Leasing Associate Relationship Specialty Start Date End Date Celio Marmolejo MD [address] [place] [address] PCP - General Internal Medicine 08/31/16 10/13/20 Miller Villalpando [address] [place] [address] PCP - General Internal Medicine 10/14/20 documented as of this encounter
--- OUTSIDE RECORDS SUMMARY | 2024-08-11 14:17 | XMS_ITS | Encounter Summary ---
Author Organization [facility] Address [address] [place] [address] Care Team Providers Care Brand Communications Manager Name Role Phone Celio Marmolejo MD Primary Care Provider [phone] [phone] Miller Villalpando Primary Care Provider Unavailabl e Reason for Visit * Reason Onset Date Comments Pre Op Visit 05/14/2017 Encounter Details Date Type Department Care Team Description 05/14/2017 Telephone Adult Medicine [address] [address] Celio Marmolejo MD [address] [place] [address] Pre Op Visit Social History Tobacco Use [...] 10:[address] Byrd works at [employer] [employer] * Telephone Encounter - Mary Ann Luis L.P.N. - 05/20/2017 9:[address] Byrd is not in this general surg office in [address] [place] [address] * Telephone Encounter - Estefanía Humphries M.A. - 05/14/2017 3:22 PM EST [place] send to [facility]. Thank you * Telephone Encounter - Haylee Felder - 05/14/2017 3:19 PM EST Date of surgery:06/18/17 What surgery is patient having (gall bladder, cataract, appendix, etc...)?: Right foot surgery Surgeon's name: DR. Ghulam Byrd Office phone number of surgeon: [phone] Fax # for surgeons office: NA Where is surgery being performed? [facility] Admitting Diagnosis/problem for surgery: fracture PCP: Celio Marmolejo Did you verify that the insurance below is correct? YES Patients insurance: [place] / [place] / Product Type: MEDICARE [id number] documented in this encounter Plan of Treatment Not on file documented as of this encounter Visit Diagnoses Not on filedocumented in this encounter Care Teams Brand Communications Manager Relationship Specialty Start Date End Date Celio Marmolejo MD [address] [place] [address] PCP - General Internal Medicine 08/31/16 10/13/20 Miller Villalpando [address] [place] [address] PCP - General Internal Medicine 10/14/20 documented as of this encounter
--- OUTSIDE RECORDS SUMMARY | 2024-08-11 14:17 | XMS_ITS | Clinical Summary ---
Author Organization [facility] Address [address] [place] [address] Care Team Providers Care Armored Car Guard Name Role Phone Unavailable Primary Care Provider [...] 5000 PLUS) 1.1 % creaIndications :Enamel caries Marshall twice daily with toothpaste then expectorate. Do not rinse. 51 g 3 2 Active Active Problems No known active problems Encounters Date Type Department Care Team Description 06/23/2024 1:40 PM EST Office Visit [facility] [address] [place] [address] Mykel, Mary, DMD Tooth missing, unspecified edentulism (Primary Dx) 06/21/2024 1:00 PM EST Office Visit [facility] [address] [place] [address] Mykel, Mary, DMD Tooth missing, unspecified edentulism (Primary Dx) 06/16/2024 1:00 PM EST Office Visit [facility] [address] [place] [address] Katelynn Lazaro, AMISHA Symptomatic periapical periodontitis (Primary Dx) 05/18/2024 1:40 PM EST Office Visit [facility] [address] [place] [address] Daniel Hammond RHD Encounter for [...] Description 11/20/2024 10:20 AM EDT Office Visit [address] [id number] Daniel Hammond RHD [address] [place] [address] Health Maintenance Due Date Last Done Comments [...] Diabetes Screening 07/26/2023 07/25/2020, 0 05/17/2019, 11/25/2017 [id number] ( season) 2024 Imm-Influenza (#1) 2024 02/02/2020, [...] Most Recently Relevant to Health Maintenance Insurance [place] MEDICAID DENTAL
--- OUTSIDE RECORDS SUMMARY | 2024-08-11 14:17 | XMS_ITS | Encounter Summary ---
Author Organization [facility] Address [address] [place] [address] Care Team Providers Care Medical Hospital Sales Name Role Phone Celio Marmolejo MD Primary Care Provider [phone] [phone] Miller Villalpando Primary Care Provider Unavailabl e Encounter Details Date Type Department Care Team Description 09/05/2020 Orders Only Podiatry - [address] [address] Ghulam Byrd, DPM Social History Tobacco Use [...] filedocumented in this encounter Care Teams Medical Hospital Sales Relationship Specialty Start Date End Date Celio Marmolejo MD [address] [place] [address] PCP - General Internal Medicine 08/31/16 10/13/20 Miller Villalpando [address] [place] [address] PCP - General Internal Medicine 10/14/20 documented as of this encounter
--- OUTSIDE RECORDS SUMMARY | 2024-08-11 14:17 | XMS_ITS | Encounter Summary ---
Author Organization [facility] Address [address] [place] [address] Care Team Providers Care Community Service Officer Name Role Phone Celio Marmolejo MD Primary Care Provider [phone] [phone] Miller Villalpando Primary Care Provider Unavailabl e Reason for Visit * Reason Onset Date Comments medication problems 12/16/2017 Encounter Details Date Type Department Care Team Description 12/16/2017 Telephone Pulmonology - [address] [place] [address] Diego Hartley MD medication problems [...] - 12/16/2017 4:21 PM EDT Called, will picket [employer] symbicort 80/4.5 * Telephone Encounter - Yvonne [...] on filedocumented in this encounter Care Teams Community Service Officer Relationship Specialty Start Date End Date Celio Marmolejo MD [address] [place] [address] PCP - General Internal Medicine 08/31/16 10/13/20 Miller Villalpando [address] [place] [address] PCP - General Internal Medicine 10/14/20 documented as of this encounter
--- OUTSIDE RECORDS SUMMARY | 2024-08-11 14:17 | XMS_ITS | Encounter Summary ---
Author Organization [facility] Address [address] [place] [address] Care Team Providers Care Geotechnical Engineering Technician Name Role Phone Celio Marmolejo MD Primary Care Provider [phone] Miller Villalpando Primary Care Provider Unavailabl e Reason for Visit * Reason Onset Date Comments Medication 08/10/2018 Encounter Details Date Type Department Care Team Description 08/10/2018 Telephone Pulmonology - [place] [address] [facility] [address] [place] [address] Diego Hartley MD Medication [...] on filedocumented in this encounter Care Teams Geotechnical Engineering Technician Relationship Specialty Start Date End Date Celio Marmolejo MD [address] [place] [address] PCP - General Internal Medicine 08/31/16 10/13/20 Miller Villalpando [address] [place] [address] PCP - General Internal Medicine 10/14/20 documented as of this encounter
--- OUTSIDE RECORDS SUMMARY | 2024-08-11 14:17 | XMS_ITS | Encounter Summary ---
Author Organization [facility] Address [address] [place] [address] Care Team Providers Care Adolescent Coordinator Name Role Phone Celio Marmolejo MD Primary Care Provider [phone] [phone] Miller Villalpando Primary Care Provider Unavailabl e Reason for Visit * Reason Comments E-prescribe Rx Request Encounter Details Date Type Department Care Team Description 05/21/2017 Refill Pulmonology - [address] [place] [address] Mary Ann Ratliff NP E-prescribe [...] on filedocumented in this encounter Care Teams Adolescent Coordinator Relationship Specialty Start Date End Date Celio Marmolejo MD [address] [place] [address] PCP - General Internal Medicine 08/31/16 10/13/20 Miller Villalpando [address] [place] [address] PCP - General Internal Medicine 10/14/20 documented as of this encounter
--- OUTSIDE RECORDS SUMMARY | 2024-08-11 14:17 | XMS_ITS | Encounter Summary ---
Author Organization [facility] Address [address] [place] [address] Care Team Providers Care Cooking Casing And Drying Supervisor Name Role Phone Celio Marmolejo MD Primary Care Provider [phone] [phone] Miller Villalpando Primary Care Provider Unavailabl e Reason for Visit * Reason Comments E-prescribe Rx Request Encounter Details Date Type Department Care Team Description 12/03/2017 Refill Pulmonology - [place] [address] [facility] [address] [place] [address] Dylon Dotson MD [address] [place] [address] E-prescribe Rx Request Social History [...] NO Patients current insurance carrier is: Payor: [place] / [place] / Product Type: MEDICARE [id number] documented in this encounter Plan of Treatment Not on file documented as of this encounter Visit Diagnoses Diagnosis Chronic obstructive pulmonary disease, unspecified COPD type (HCC) documented in this encounter Care Teams Cooking Casing And Drying Supervisor Relationship Specialty Start Date End Date Celio Marmolejo MD [address] [place] [address] PCP - General Internal Medicine 08/31/16 10/13/20 Miller Villalpando [address] [place] [address] PCP - General Internal Medicine 10/14/20 documented as of this encounter
--- OUTSIDE RECORDS SUMMARY | 2024-08-11 14:17 | XMS_ITS | Encounter Summary ---
Author Organization [facility] Address [address] [place] [address] Care Team Providers Care Gin Pole Operator Name Role Phone Celio Marmolejo MD Primary Care Provider [phone] -[phone] Miller Villalpando Primary Care Provider Unavailabl e Encounter Details Date Type Department Care Team Description 06/22/2019 Shuttle Veneering Supervisor Report Medical Records [address] [place] [address] Diego Hartley MD Social History Tobacco Use [...] on filedocumented in this encounter Care Teams Gin Pole Operator Relationship Specialty Start Date End Date Celio Marmolejo MD [address] [place] [address] PCP - General Internal Medicine 08/31/16 10/13/20 Miller Villalpando [address] [place] [address] PCP - General Internal Medicine 10/14/20 documented as of this encounter
--- OUTSIDE RECORDS SUMMARY | 2024-08-11 14:17 | XMS_ITS | Encounter Summary ---
Author Organization [facility] Address [address] [place] [address] Care Team Providers Care Emr Specialist Name Role Phone Celio Marmolejo MD Primary Care Provider +1 -[phone] Miller Villalpando Primary Care Provider Unavailabl e Encounter Details Date Type Department Care Team Description 09/05/2020 Park Superintendent Report Medical Records [address] [place] [address] Ghulam Byrd, MARIE Social History Tobacco Use [...] filedocumented in this encounter Care Teams Emr Specialist Relationship Specialty Start Date End Date Celio Marmolejo MD [address] [place], [place] [id number] PCP - General Internal Medicine 08/31/16 10/13/20 Miller Villalpando [address] [place] [address] PCP - General Internal Medicine 10/14/20 documented as of this encounter
--- OUTSIDE RECORDS SUMMARY | 2024-08-11 14:17 | XMS_ITS | Encounter Summary ---
Author Organization [facility] Address [address] [place] [address] Care Team Providers Care Auto Former Machine Operator Name Role Phone Celio Marmolejo MD Primary Care Provider +1 -[phone] Miller Villalpando Primary Care Provider Unavailabl e Encounter Details Date Type Department Care Team Description 01/28/2018 Supervisor Vacuum Metalizing Report Medical Records [address] [place] [address] Michela Salazar Social History Tobacco Use Types [...] on filedocumented in this encounter Care Teams Auto Former Machine Operator Relationship Specialty Start Date End Date Celio Marmolejo MD [address] [place] [address] PCP - General Internal Medicine 08/31/16 10/13/20 Miller Villalpando [address] [place] [address] PCP - General Internal Medicine 10/14/20 documented as of this encounter
--- OUTSIDE RECORDS SUMMARY | 2024-08-11 14:17 | XMS_ITS | Encounter Summary ---
Author Organization [facility] Address [address] [place] [address] Care Team Providers Care Senior Windows Administrator Name Role Phone Celio Marmolejo MD Primary Care Provider +1 [phone] Miller Villalpando Primary Care Provider Unavailabl e Reason for Visit * Reason Onset Date Comments APPOINTMENT 08/14/2020 PT CANCELLING Encounter Details Date Type Department Care Team Description 08/14/2020 Telephone Cardio PVC POC [address] [facility] [address] [place] [address] Sita Mahoney MD [address] [place] [address] APPOINTMENT (PT CANCELLING) Social History Tobacco Use [...] IN HTE DAY. PLEASE CALL HER AT [phone] OR [phone] TO RESCHEDULE documented in this encounter Plan of Treatment Not on file documented as of this encounter Visit Diagnoses Not on filedocumented in this encounter Care Teams Senior Windows Administrator Relationship Specialty Start Date End Date Celio Marmolejo MD [address] [place] [address] PCP - General Internal Medicine 08/31/16 10/13/20 Miller Villalpando [address] [place] [address] PCP - General Internal Medicine 10/14/20 documented as of this encounter
--- OUTSIDE RECORDS SUMMARY | 2024-08-11 14:17 | XMS_ITS | Encounter Summary ---
Author Organization [facility] Address [address] [place] [address] Care Team Providers Care Test Consultant Name Role Phone Celio Marmolejo MD Primary Care Provider +1 [phone] Miller Villalpando Primary Care Provider Unavailabl e Encounter Details Date Type Department Care Team Description 10/05/2017 Orders Only Podiatry - [place] [address] [place] [address] Ghulam Byrd DPM Osteomyelitis of right foot, [...] C-REACTIVE PROTEIN (10/08/2017 2:17 PM EDT) Pathologist [facility] CRP 0.27 0.08 - 0.80 mg/dL 10/08/2017 5:11 PM EDT [facility] 10/08/2017 2:17 PM EDT 10/08/2017 2:17 PM EDT Ghulam Byrd DPM LAB [facility] [employer] [facility] [address] [facility] * RBC SEDIMENTATION RATE, NON-AUTO (10/08/2017 2:17 PM EDT) Pathologist [facility] ESR 2 0 - 30 mm/hr 10/08/2017 6:56 PM EDT [facility] 10/08/2017 2:17 PM EDT 10/08/2017 2:17 PM EDT Ghulam FERRAROM LAB Performing Organization Address [facility] Co de Phone Number [address] * CREATININE, BLOOD ASSAY (10/08/2017 2:17 PM EDT) CREAT 1.0 0.7 - 1.5 mg/dL 10/08/2017 5:11 PM EDT [facility] GFR > 60 >60 10/08/2017 5:11 PM T [facility] Comment: If patient is -Mauritanian, multiply result by 1.21 Chronic Kidney Disease: < 60 ml/min/1.73 square meters Kidney Failure: < 15 ml/min/1.73 square meters 10/08/2017 2:17 PM EDT 10/08/2017 2:17 PM EDT Ghulam FERRAROM LAB Performing Organization Address [facility] Phone Number [address] * (ABNORMAL) CBC (AUTO DIFF PLATELET) (10/08/2017 2:17 PM EDT) WBC 7.0 4.8 - 10.8 x10-3 10/08/2017 4:19 PM EDT [facility] RBC 4.4 3.8 - 4.8 x10-6 10/08/2017 4:19 PM EDT [facility] HGB 14.5 11.5 - 16.0 g/dl 10/08/2017 4:19 PM EDT [facility] HCT 44.1 35 - 47 % 10/08/2017 4:19 PM EDT [facility] MCV 99.8(H) 79 - 98 fl 10/08/2017 4:19 PM EDT [facility] MCH 32.8(H) 27 - 32 [...] - 11 fl 10/08/2017 4:19 PM EDT [facility] NEUT % 59.1 41 - 85 % 10/08/2017 4:19 PM EDT [facility] LYMPH % 30.1 15 - 48 % 10/08/2017 4:19 PM EDT [facility] MONO % 8.1 0 [...] Ghulam Byrd DPM LAB Performing Organization Address City/State/[facility] Co de Phone Number [facility] [address] [facility] * X-RAY EXAM OF [...] Primary documented in this encounter Care Teams Test Consultant Relationship Specialty Start Date End Date Celio Marmolejo MD [address] [place] [address] PCP - General Internal Medicine 08/31/16 10/13/20 Miller Villalpando [address] [place] [address] PCP - General Internal Medicine 10/14/20 documented as of this encounter
--- OUTSIDE RECORDS SUMMARY | 2024-08-11 14:17 | XMS_ITS | Encounter Summary ---
Author Organization [facility] Address [address] [place] [address] Care Team Providers Care Budget Coordinator Name Role Phone Celio Marmolejo MD Primary Care Provider +1 -[phone] Miller Villalpando Primary Care Provider Unavailabl e Encounter Details Date Type Department Care Team Description 07/16/2020 Aircraft Technician Report Medical Records [address] [place] [address] Adali Lantigua MD Social History Tobacco Use [...] on filedocumented in this encounter Care Teams Budget Coordinator Relationship Specialty Start Date End Date Celio Marmolejo MD [address] [place], [place] [phone] PCP - General Internal Medicine 08/31/16 10/13/20 Miller Villalpando [address] [place] [address] PCP - General Internal Medicine 10/14/20 documented as of this encounter
--- OUTSIDE RECORDS SUMMARY | 2024-08-11 14:17 | XMS_ITS | Encounter Summary ---
Author Organization [facility] Address [address] [place] [address] Care Team Providers Care Canvas Products Sales Representative Name Role Phone Celio Marmolejo MD Primary Care Provider [phone] -[phone] Miller Villalpando Primary Care Provider [facility] Encounter Details Date Type Department Care Team Description 03/01/2020 Hospital Medical Records [address] [place] [address] [facility] Social History Tobacco Use Types [...] on filedocumented in this encounter Care Teams Canvas Products Sales Representative Relationship Specialty Start Date End Date Celio Marmolejo MD [address] [place] [address] PCP - General Internal Medicine 08/31/16 10/13/20 Miller Villalpando [address] [place] [address] PCP - General Internal Medicine 10/14/20 documented as of this encounter
--- OUTSIDE RECORDS SUMMARY | 2024-08-11 14:17 | XMS_ITS | Encounter Summary ---
Author Organization [facility] Address [address] [place] [address] Care Team Providers Care Health Education Teacher Name Role Phone Celio Marmolejo MD Primary Care Provider +1 -[phone] Miller Villalpando Primary Care Provider Unavailabl e Encounter Details Date Type Department Care Team Description 12/21/2019 Industrial Pipefitter Journeyman Report Medical Records [address] [place] [address] Adali Lantigua MD Social History Tobacco Use [...] on filedocumented in this encounter Care Teams Health Education Teacher Relationship Specialty Start Date End Date Celio Marmolejo MD [address] [place] [address] PCP - General Internal Medicine 08/31/16 10/13/20 Miller Villalpando [address] [place] [address] PCP - General Internal Medicine 10/14/20 documented as of this encounter
--- OUTSIDE RECORDS SUMMARY | 2024-08-11 14:17 | XMS_ITS | Encounter Summary ---
Author Organization [facility] Address [address] [place] [address] Care Team Providers Care Bus Trolley And Taxi Instructor Name Role Phone Celio Marmolejo MD Primary Care Provider +1 -[phone] Miller Villalpando Primary Care Provider Unavailabl e Encounter Details Date Type Department Care Team Description 07/30/2017 Orders Only Podiatry - [address] [address] Ghulam Byrd DPM Social History Tobacco Use [...] on filedocumented in this encounter Care Teams Bus Trolley And Taxi Instructor Relationship Specialty Start Date End Date Celio Marmolejo MD [address] [place], [place] [phone] PCP - General Internal Medicine 08/31/16 10/13/20 Miller Villalpando [address] [place] [address] PCP - General Internal Medicine 10/14/20 documented as of this encounter
--- OUTSIDE RECORDS SUMMARY | 2024-08-11 14:17 | XMS_ITS | Encounter Summary ---
Author Organization [facility] Address [address] [place] [address] Care Team Providers Care Health Services Information Specialist Name Role Phone Celio Marmolejo MD Primary Care Provider [phone] [phone] Miller Villalpando Primary Care Provider Unavailabl e Encounter Details Date Type Department Care Team Description 10/18/2017 Business Doc Medical Records [address] [place] [address] Abstract, Provider Social History Tobacco Use Types [...] filedocumented in this encounter Care Teams Health Services Information Specialist Relationship Specialty Start Date End Date Celio Marmolejo MD [address] [place] [address] PCP - General Internal Medicine 08/31/16 10/13/20 Miller Villalpando [address] [place] [address] PCP - General Internal Medicine 10/14/20 documented as of this encounter
--- OUTSIDE RECORDS SUMMARY | 2024-08-11 14:17 | XMS_ITS | Encounter Summary ---
Author Organization [facility] Address [address] [place] [address] Care Team Providers Care Retort Kiln Burner Name Role Phone Celio Marmolejo MD Primary Care Provider [phone] [phone] Miller Villalpando Primary Care Provider Unavailabl e Reason for Visit * Reason Onset Date Comments Infiltrates 11/08/2017 [email or web address] Encounter Details Date Type Department Care Team Description 11/08/2017 Telephone Pulmonology - [address] [place] [address] Diego Hartley MD Infiltrates (pnuemonia [...] go to the ER.FYI.she will go to [facility] ED. * Telephone Encounter - Gabriela Holland - 11/08/2017 9:43 AM EDT [id number] Patient is calling in due to double [...] on filedocumented in this encounter Care Teams Retort Kiln Burner Relationship Specialty Start Date End Date Celio Marmolejo MD [address] [place] [address] PCP - General Internal Medicine 08/31/16 10/13/20 Miller Villalpando [address] [place] [address] PCP - General Internal Medicine 10/14/20 documented as of this encounter
--- OUTSIDE RECORDS SUMMARY | 2024-08-11 14:17 | XMS_ITS | Encounter Summary ---
Author Organization [facility] Address [address] [place] [address] Care Team Providers Care Trade Analyst Name Role Phone Celio Marmolejo MD Primary Care Provider [phone] [phone] Miller Villalpando Primary Care Provider Unavailabl e Encounter Details Date Type Department Care Team Description 01/13/2018 Orders Only Podiatry - [place] [address] [place] [address] Ghulam Byrd DPM Other chronic osteomyelitis of [...] - 0.80 mg/dL 01/18/2018 3:30 PM EDT [facility] 01/18/2018 1:35 PM EDT 01/18/2018 1:35 PM EDT Ghulam Byrd DPM LAB [employer] [facility] [address] [place] [address] * RBC SEDIMENTATION RATE, NON-AUTO (01/18/2018 1:35 PM EDT) ESR 10 0 - 30 mm/hr 01/18/2018 3:08 PM EDT [facility] 01/18/2018 1:35 PM EDT 01/18/2018 1:35 PM EDT Ghulam Byrd DPM LAB [facility] [address] [facility] * X-RAY EXAM OF FOOT, COMPLETE [...] (HCC) documented in this encounter Care Teams Trade Analyst Relationship Specialty Start Date End Date Celio Marmolejo MD [address] [place] [address] PCP - General Internal Medicine 08/31/16 10/13/20 Miller Villalpando [address] [place] [address] PCP - General Internal Medicine 10/14/20 documented as of this encounter
--- OUTSIDE RECORDS SUMMARY | 2024-08-11 14:17 | XMS_ITS | Encounter Summary ---
Author Organization [facility] Address [address] [place] [address] Care Team Providers Care Document Control Specialist Name Role Phone Celio Marmolejo MD Primary Care Provider [phone] [phone] Miller Villalpando Primary Care Provider Unavailabl e Encounter Details Date Type Department Care Team Description 05/29/2020 SCAN Medical Records [address] [place] [address] Abstract, Provider Social History Tobacco Use Types [...] on filedocumented in this encounter Care Teams Document Control Specialist Relationship Specialty Start Date End Date Celio Marmolejo MD [address] [place] [address] PCP - General Internal Medicine 08/31/16 10/13/20 Miller Villalpando [address] [place] [address] PCP - General Internal Medicine 10/14/20 documented as of this encounter
--- OUTSIDE RECORDS SUMMARY | 2024-08-11 14:17 | XMS_ITS | Clinical Summary ---
Author Organization [facility] Address [address] [place] [address] Care Team Providers Care Tableau Lead Name Role Phone Miller Villalpando MD Primary Care Provider [phone] Surgical History Surgery Date Site/Laterality Comments OTHER SURGICAL HISTORY PROCEDURE: ---- OTHER ----; COMMENT: right upper apex lung lobe removed APPENDECTOMY PROCEDURE: HISTORICAL APPENDECTOMY COLONOSCOPY 03/15/2014 [facility] PROCEDURE: HISTORICAL COLONOSCOPY; COMMENT: Two 8-10 mm adenomas; repeat in 3 yrs OTHER SURGICAL HISTORY 03/05/2014 PROCEDURE: [place] ESOPHAGOSCOPY FLEXIBLE TRANSORAL DIAGNOSTIC; COMMENT: small HH; [...] high-fiber diet COLONOSCOPY W/ POLYPECTOMY 09/09/2017 PROCEDURE: [place] COLSC FLX W/RMVL OF TUMOR POLYP LESION SNARE TQ; COMMENT: 12 small polyps, all adenomas; hemorrhoids. Repeat in 3 years under propofol OTHER SURGICAL HISTORY PROCEDURE: IMPLANT BREAST SILICONE/EQ TUBAL LIGATION PROCEDURE: HISTORICAL TUBAL LIGATION OTHER SURGICAL HISTORY PROCEDURE: [place] REMOVAL OF LUNG PNEUMONECTOMY Medical History Medical History Date Comments Asthma 09/22/2016 DX:Asthma COPD (chronic obstructive pu lmonary disease) (CMS/HCC V24, CMS/HCC V28) 09/22/2016 DX:COPD (chronic o bstructive pulmonary disease) (HCC) Chronic bronchitis (CMS/HCC V24, CMS/HCC V28) 09/22/2016 DX:Chronic bronchitis (HCC) Bronchiectasis ([facility] V24, CMS/[facility] V28) 09/22/2016 DX:Bronchiectasis (HCC) Mitral valve prolapse 09/22/2016 DX:Mitral valve [...] C and G neg. Colposcopy 04/18/2014 Seizure ([facility] V24, [facility] V28) 09/22/2016 DX:Seizure (HCC); COMMENT: Patient states that EEG is normal [...] age to complete this topic Meningococcal B Vaccine Aged Out No l onger eligible based on patient's age to complete [...] RESULTING AGENCY - 05/28/2020 10:55 AM EST [id number] THINPREP PAP, IMAGED: NEGATIVE FOR SQUAMOUS INTRAEPITHELIAL LESION AND MALIGNANCY . REACTIVE CELLULAR CHANGES. SHENA LAZARO , CT(ASCP) (CASE SCREENED 05 23 2020) JASE VAZQUEZ M.D. , PATHOLOGIST (CASE ELECTRONICALLY SIGNED 05 27 2020) RESULT OF APTIMA HIGH RISK HPV ASSAY: HIGH RISK HPV: ??NEGATIVE (SEROTYPES 16,18,31,33,35,39,45,51,52,56,58,59,66,68) COMPLETED ON 2020-05-22 ADEQUACY: SATISFACTORY ENDOCERVICAL/TRANSFORMATION ZONE COMPONENT ABSENT. SOURCE: THINPREP PAP HPV ANY DX: ??REFLEX 16 AND 18, CERVICAL, IMAGED CLINICAL INFORMATION: HPV ANY DIAGNOSIS. POSTMENOPAUSE, PAP HX NEG [Z12.4] us Cheri Rottenberg DO LAB CYTOLOGY ORDERABLES Final Result HISTORICAL [...] combined ultrasound-guided core biopsy and diagnosticmammogram report. Celio Marmolejo MD IMG BI PROCEDURES Final R esult from Last 3 Months or Most Recently Relevant to Health Maintenance Care Teams Tableau Lead Relationship Specialty Start Date End Date Miller Villalpando MD [address] [place] [address] [place] [address] PCP - General Internal Medicine 10/14/20
--- OUTSIDE RECORDS SUMMARY | 2024-08-11 14:17 | XMS_ITS | Encounter Summary ---
Author Organization [facility] Address [address] [place] [address] Care Team Providers Care Fairing Man Name Role Phone Celio Marmolejo MD Primary Care Provider [phone] [phone] Miller Villalpando Primary Care Provider Unavailabl e Reason for Visit * Reason Onset Date Comments refill request 08/23/2019 Encounter Details Date Type Department Care Team Description 08/23/2019 Refill Adult Medicine - [address] [address] Celio Marmolejo MD [address] [place] [address] refill request Social History Tobacco Use Types [...] THE PATIENT'S LAST APPOINTMENT IN ADULT MEDICINE? [id number] WHEN WAS THE LAST TIME THE PATIENT SAW THEIR PCP? Same as above Does patient have an upcoming appointment? Yes [id number] (THE MEDICATION REQUESTED IS ON THE MED LIST ABOVE) All of the medications requested were on the CURRENT MEDS list Did you check the Pharmacy information above?: YES Patient wants: 90 -day supply Is this a mail order prescription request ? NO If the refill is from a FAXED refill request what is the RX # listed on the fax? [phone] Patients current insurance carrier is: [place] / [place] / Product Type: MEDICARE [id number] documented in this encounter Plan of Treatment Not on file documented as of this encounter Visit Diagnoses Not on filedocumented in this encounter Care Teams Fairing Man Relationship Specialty Start Date End Date Celio Marmolejo MD [address] [place] [address] PCP - General Internal Medicine 08/31/16 10/13/20 Miller Villalpando [address] [place] [address] PCP - General Internal Medicine 10/14/20 documented as of this encounter
--- OUTSIDE RECORDS SUMMARY | 2024-08-11 14:17 | XMS_ITS | Encounter Summary ---
Author Organization [facility] Address [address] [place] [address] Care Team Providers Care Clin Application Specialist Name Role Phone Celio Marmolejo MD Primary Care Provider [phone] [phone] Miller Villalpando Primary Care Provider Unavailabl e Encounter Details Date Type Department Care Team Description 05/11/2017 Orders Only Adult Medicine [address] [id number] Celio Marmolejo MD [address] [place] [address] Preoperative examination; Screening for deficiency anemia; care home current use of anticoagulant therapy Social History [...] NEGATIVE <=TRACE mg/dL 05/25/2017 2:38 PM EST [facility] GLUCOSE, URINE (UA) NEGATIVE NEGATIVE mg/dL 05/25/2017 2:38 PM [facility] KETONE, URINE NEGATIVE NEGATIVE mg/dL 05/25/2017 2:38 PM [facility] BILIRUBIN URINE NEGATIVE NEGATIVE 05/25/2017 2:38 PM [facility] UROBILINOGEN, URINE 0.2 0.2 - 1.0 E.U./dL 05/25/2017 2:38 PM [facility] BLOOD, URINE NEGATIVE NEGATIVE 05/25/2017 2:38 PM [facility] NITRITE,URINE NEGATIVE NEGATIVE 05/25/2017 2:38 PM [facility] LEUKOCYTE ESTERASE, URINE NEGATIVE NEGATIVE 05/25/2017 2:38 PM [facility] RBC-Urine NONE 0 - 4 /hpf 05/25/2017 4:03 PM [facility] WBC, URINE NONE 0 - 4 /hpf 05/25/2017 4:03 PM [facility] 05/25/2017 10:1 5 AM EST 05/25/2017 10:16 AM EST Celio Marmolejo MD LAB Performing Organization Address [facility] Co de Phone Number [address] * THROMBOPLASTIN TIME, PARTIAL (05/18/2017 1:54 PM EST) PTT 32.6 20.6 - 33.6 SEC 05/18/2017 5:31 PM [facility] Comment: Please note adjusted APTT (sec) reference range ?? effective 11/01/2015. 05/18/2017 1:54 PM EST 05/18/2017 1:54 PM EST Celio Marmolejo MD LAB Performing Organization Address [facility] Co de Phone Number [address] * PROTHROMBIN TIME (05/18/2017 1:54 PM EST) PT 12.0 11.6 - 15.6 SEC 05/18/2017 4:55 PM [facility] Comment: Please note adjusted PT(sec)normal reference range ?? effective 01/01/15. INR 0.90 05/18/2017 4:55 PM EST [facility] 05/18/2017 1:54 PM EST 05/18/2017 1:54 PM EST Celio Marmolejo MD LAB Performing Organization Address City/State/[facility] Co de Phone Number [facility] [address] [facility] * BASIC METABOLIC PANEL (05/18/2017 1:54 PM EST) Pathologist [facility] GLUCOSE 78 70 - 100 mg/dL 05/18/2017 4:59 PM EST [facility] Comment: Reference range applicable to fasting specimens only Based on recommendations from the ADA and AACE, the fasting glucose reference range has been changed to 70-100 mg/dL. ??This change is effective September 16, 2009 BUN 7 5 - 25 mg/dL 05/18/2017 4:59 PM [facility] CREAT 1.0 0.7 - 1.5 mg/dL 05/18/2017 4:59 PM [facility] GFR > 60 >60 05/18/2017 4:59 PM [facility] Comment: If patient is -Paraguayan, multiply result by 1.21 Chronic Kidney Disease: < 60 ml/min/1.73 square meters Kidney Failure: < 15 ml/min/1.73 square meters Sodium 138 133 - 145 mEq/L 05/18/2017 4:59 PM EST [facility] Potassium 4.5 3.5 - 5.5 mEq/L 05/18/2017 4:59 PM EST [facility] Chloride 98 96 - 108 mEq/L 05/18/2017 4:59 PM EST [facility] CO2 29.2 21.0 - 32.0 mEq/L 05/18/2017 4:59 PM EST [facility] CALCIUM 9.3 8.5 - 10.5 mg/dL 05/18/2017 4:59 PM EST [facility] 05/18/2017 1:54 PM EST 05/18/2017 1:54 PM EST Celio Marmolejo MD LAB [facility] [address] [facility] * (ABNORMAL) CBC (AUTO DIFF PLATELET) [...] Celio Marmolejo MD LAB Performing Organization Address City/State/[facility] Co de Phone Number [facility] [address] [place] [address] documented in this encounter Visit Diagnoses Diagnosis Preoperative examination Preoperative examination, unspecified Screening for deficiency anemia Screening for other and unspecified deficiency anemia terminal worker current use of anticoagulant therapy documented in this encounter Care Teams Clin Application Specialist Relationship Specialty Start Date End Date Celio Marmolejo MD [address] [place] [address] PCP - General Internal Medicine 08/31/16 10/13/20 Miller Villalpando [address] [place] [address] PCP - General Internal Medicine 10/14/20 documented as of this encounter
--- OUTSIDE RECORDS SUMMARY | 2024-08-11 14:17 | XMS_ITS | Encounter Summary ---
Author Organization [facility] Address [address] [place] [address] Care Team Providers Care Income Tax Expert Name Role Phone Celio Marmolejo MD Primary Care Provider [phone] [phone] Miller Villalpando Primary Care Provider Unavailabl e Encounter Details Date Type Department Care Team Description 11/17/2017 Orders Only Podiatry - [address] [address] Ghulam Byrd DPM Other chronic osteomyelitis of [...] Ghulam Byrd DPM RADIOLOGY Performing Organization Address [facility] de Phone Number SAGAR MONSON OTHER EXTERNAL * RBC SEDIMENTATION RATE, NON-AUTO (11/17/2017 2:27 PM EDT) Pathologist [facility] ESR 20 0 - 30 mm/hr 11/17/2017 7:21 PM EDT [facility] 11/17/2017 2:27 PM EDT 11/17/2017 2:27 PM EDT Ghulam Byrd DPM LAB Performing Organization Address [facility] de Phone Number [place] [phone] [facility] * C-REACTIVE PROTEIN HIGH SENSITIVITY (11/17/2017 2:27 PM EDT) Pathologist [facility] CARDIO CRP- HIGH SENSITIVE 16.4 mg/L 11/17/2017 8:13 PM EDT [employer] Comment: Cardio CRP Relative Risk Categories Low [...] Ghulam Byrd DPM LAB Performing Organization Address [facility] de Phone Number [employer] * (ABNORMAL) CBC (AUTO DIFF PLATELET) (11/17/2017 2:27 PM EDT) WBC 5.4 4.8 - 10.8 x10-3 11/17/2017 5:56 PM EDT [facility] RBC 3.9 3.8 - 4.8 x10-6 11/17/2017 5:56 PM EDT [facility] HGB 12.7 11.5 - 16.0 g/dl 11/17/2017 5:56 PM EDT [facility] HCT 39.0 35 - 47 % 11/17/2017 5:56 PM EDT [facility] MCV 101.0(H) 79 - 98 fl 11/17/2017 5:56 PM EDT [facility] MCH 32.9(H) 27 - 32 pg 11/17/2017 5:56 PM EDT [facility] MCHC 32.6 32 - 37 g/dl 11/17/2017 5:56 PM EDT [facility] RDW 14.8 11 - 15 % 11/17/2017 5:56 PM EDT [facility] PLT COUNT 446(H) 130 - 400 x10-3 11/17/2017 5:56 PM EDT [facility] MEAN PLATELET VOLUME 9.9 7 - 11 fl 11/17/2017 5:56 PM EDT [facility] NEUT % 56.2 41 - 85 % 11/17/2017 5:56 PM EDT [facility] LYMPH % 30.7 15 - 48 % 11/17/2017 5:56 PM EDT [facility] MONO % 11.2 0 - 12 % 11/17/2017 5:56 PM EDT [facility] EOS % 1.5 0 - 5 % 11/17/2017 5:56 PM EDT [facility] BASO % 0.4 0 - 2 % 11/17/2017 5:56 PM EDT [facility] 11/17/2017 2:2 7 PM EDT 11/17/2017 2:27 PM EDT Ghulam [facility]ERRAR[facility] [address] [facility] documented in this encounter Visit Diagnoses Diagnosis Other chronic osteomyelitis of right foot (HCC)- Primary Other chronic osteomyelitis of right foot (HCC) documented in this encounter Care Teams Income Tax Expert Relationship Specialty Start Date End Date Celio Marmolejo MD [address] [place] [address] PCP - General Internal Medicine 08/31/16 10/13/20 Miller Villalpando [address] [place] [address] PCP - General Internal Medicine 10/14/20 documented as of this encounter
--- OUTSIDE RECORDS SUMMARY | 2024-08-11 14:17 | XMS_ITS | Encounter Summary ---
Author Organization [facility] Address [address] [place] [address] Care Team Providers Care Pack Room Operator Name Role Phone Celio Marmolejo MD Primary Care Provider [phone] [phone] Miller Villalpando Primary Care Provider Unavailabl e Reason for Visit * Reason Onset Date Comments Provider Call Back 11/16/2017 Encounter Details Date Type Department Care Team Description 11/16/2017 Telephone Pulmonology - [address] [place] [address] Diego Hartley MD Provider Call [...] on filedocumented in this encounter Care Teams Pack Room Operator Relationship Specialty Start Date End Date Celio Marmolejo MD [address] [place] [address] PCP - General Internal Medicine 08/31/16 10/13/20 Miller Villalpando [address] [place] [address] PCP - General Internal Medicine 10/14/20 documented as of this encounter
--- OUTSIDE RECORDS SUMMARY | 2024-08-11 14:17 | XMS_ITS | Encounter Summary ---
Author Organization [facility] Address [address] [place] [address] Care Team Providers Care Drill Grinder Name Role Phone Celio Marmolejo MD Primary Care Provider [phone] Miller Villalpando Primary Care Provider Unavailabl e Encounter Details Date Type Department Care Team Description 07/17/2019 Refresh Technician Report Medical Records [address] [place] [address] Diego Hartley MD Social History Tobacco Use [...] on filedocumented in this encounter Care Teams Drill Grinder Relationship Specialty Start Date End Date Celio Marmolejo MD [address] [place] [address] PCP - General Internal Medicine 08/31/16 10/13/20 Mliler Villalpando [address] [place] [address] PCP - General Internal Medicine 10/14/20 documented as of this encounter
--- OUTSIDE RECORDS SUMMARY | 2024-08-11 14:17 | XMS_ITS | Encounter Summary ---
Author Organization [facility] Address [address] [place] [address] Care Team Providers Care Child Care Centre Manager Name Role Phone Celio Marmolejo MD Primary Care Provider [phone] [phone] Miller Villalpando Primary Care Provider Unavailabl e Encounter Details Date Type Department Care Team Description 10/13/2017 Orders Only Podiatry - [address] [address] Ghulam Byrd, MARIE Social History Tobacco Use [...] on filedocumented in this encounter Care Teams Child Care Centre Manager Relationship Specialty Start Date End Date Celio Marmolejo MD [address] [place], [place] [id number] PCP - General Internal Medicine 08/31/16 10/13/20 Miller Villalpando [address] [place] [address] PCP - General Internal Medicine 10/14/20 documented as of this encounter
--- OUTSIDE RECORDS SUMMARY | 2024-08-11 14:17 | XMS_ITS | Encounter Summary ---
Author Organization [facility] Address [address] [place] [address] Care Team Providers Care Crime Victim Specialist Name Role Phone Celio Marmolejo MD Primary Care Provider [phone] Miller Villalpando Primary Care Provider Unavailabl e Reason for Referral * EXTERNAL (Priority) - Authorized/Booked Specialty Diagnoses / Procedures Referred By Contjennifer t Referred To Contact Infectious Disease Procedures REFERRAL TO INFECTIOUS DISEASE Ghulam Byrd DPM [address] [place] [address] Referral ID Status Reason Start Date Expiration Date V isits Requested Visits Authorized SEE NOTE Authorized/B ooked 09/03/2017 12/07/2017 1 1 Encounter Details Date Type Department Care Team Description 09/03/2017 Orders Only Podiatry - [address] [address] Ghulam Byrd DPM Social History Tobacco Use [...] on filedocumented in this encounter Care Teams Crime Victim Specialist Relationship Specialty Start Date End Date Celio Marmolejo MD [address] [place] [address] PCP - General Internal Medicine 08/31/16 10/13/20 Miller Villalpando [address] [place] [address] PCP - General Internal Medicine 10/14/20 documented as of this encounter
--- OUTSIDE RECORDS SUMMARY | 2024-08-11 14:18 | XMS_ITS | Encounter Summary ---
Author Organization [facility] Address [address] [place] [address] Care Team Providers Care Supervisor Front Name Role Phone Celio Marmolejo MD Primary Care Provider [phone] -[phone] Miller Villalpando Primary Care Provider Unavailabl e Encounter Details Date Type Department Care Team Description 02/22/2017 Search Optimization Analyst Report Medical Records [address] [place] [address] Abstract, Provider Social History Tobacco Use Types [...] filedocumented in this encounter Care Teams Supervisor Front Relationship Specialty Start Date End Date Celio Marmolejo MD [address] [place], [place] [phone] PCP - General Internal Medicine 08/31/16 10/13/20 Miller Villalpando [address] [place] [address] PCP - General Internal Medicine 10/14/20 documented as of this encounter
--- OUTSIDE RECORDS SUMMARY | 2024-08-11 14:18 | XMS_ITS | Encounter Summary ---
Author Organization [facility] Address [address] [place] [address] Care Team Providers Care Railroad Car Letterer Name Role Phone Celio Marmolejo MD Primary Care Provider [phone] -[phone] Miller Villalpando Primary Care Provider Unavailabl e Encounter Details Date Type Department Care Team Description 03/29/2017 Business Doc Medical Records [address] [place] [address] Abstract, Provider Social History Tobacco Use Types [...] filedocumented in this encounter Care Teams Railroad Car Letterer Relationship Specialty Start Date End Date Celio Marmolejo MD [address] [place], [place] [phone] PCP - General Internal Medicine 08/31/16 10/13/20 Miller Villalpando [address] [place] [address] PCP - General Internal Medicine 10/14/20 documented as of this encounter
--- OUTSIDE RECORDS SUMMARY | 2024-08-11 14:18 | XMS_ITS | Encounter Summary ---
Author Organization [facility] Address [address] [place] [address] Care Team Providers Care Railroad Dining Car Steward/Stewardess Name Role Phone Celio Marmolejo MD Primary Care Provider [phone] Miller Villalpando Primary Care Provider Unavailabl e Reason for Visit * Reason Onset Date Comments Nuclear Stress Testing 03/30/2017 Encounter Details Date Type Department Care Team Description 03/30/2017 Telephone Cardiology - [place] [address] [place], [place] [phone] Sita Mahoney MD [address] [place], [place] [phone] Nuclear Stress Testing Social History Tobacco Use [...] stress test till after she returns from [place]. While I would prefer she do this [...] to wait until after she returns from [place] in about a month, before she does this test. Please advise Medicare/[employer] No auth Req km 03/23/17 documented in this encounter Plan of Treatment Not on file documented as of this encounter Visit Diagnoses Not on filedocumented in this encounter Care Teams Railroad Dining Car Steward/Stewardess Relationship Specialty Start Date End Date Celio Marmolejo MD [address] [place] [address] PCP - General Internal Medicine 08/31/16 10/13/20 Miller Villalpando [address] [place] [address] PCP - General Internal Medicine 10/14/20 documented as of this encounter
--- OUTSIDE RECORDS SUMMARY | 2024-08-11 14:18 | XMS_ITS | Encounter Summary ---
Author Organization [facility] Address [address] [place] [address] Care Team Providers Care Cylinder Die Machine Helper Name Role Phone Celio Marmolejo MD Primary Care Provider [phone] -[phone] Miller Villalpando Primary Care Provider Unavailabl e Reason for Visit * Reason Comments E-prescribe Rx Request Encounter Details Date Type Department Care Team Description 04/15/2018 Refill Adult Medicine [address] [address] Diego Hartley MD E-prescribe Rx Request Social [...] PATIENT'S LAST APPOINTMENT WITH THE PRESCRIBING PROVIDER? [id number] Does patient have an upcoming appointment? Yes [id number] (THE MEDICATION REQUESTED IS ON THE MED LIST ABOVE) All of the medications requested were on the CURRENT MEDS list Did you check the Pharmacy information above?: YES Patient wants: 90 -day supply Is this a mail order prescription request ? NO Patients current [place] carrier is: [place] / [place] / Product Type: MEDICARE [id number] documented in this encounter Plan of Treatment Not on file documented as of this encounter Visit Diagnoses Not on filedocumented in this encounter Care Teams Cylinder Die Machine Helper Relationship Specialty Start Date End Date Celio Marmolejo MD [address] [place] [address] PCP - General Internal Medicine 08/31/16 10/13/20 Miller Villalpando [address] [place] [address] PCP - General Internal Medicine 10/14/20 documented as of this encounter
--- OUTSIDE RECORDS SUMMARY | 2024-08-11 14:18 | XMS_ITS | Clinical Summary ---
Author Organization [facility] Address [address] [facility] [place] [address] Care Team Providers Care Field Staff Manager Name Role Phone Miller Villalpando Primary Care [...] Seizure 09/22/2016 Overview: Neurology (01/28/18): after reviewing [facility] notes, will cosnider AED. Cont amitriptyline [...] C SCREENING Completed 11/25/2017, 017 Care Teams Field Staff Manager Relationship Specialty Start Date End Date Miller Villalpando PCP - General Internal Medicine 10/14/20
[2024-08-11 14:28] VITALS: BP 111/70; PULSE 77; BMI 24.3
== END 2024-08-11 14:52 | disposition home or self-care (01) ==
LOC: HO.HGI 13:54
PROVIDERS: PCP Internal Medicine; Visit Provider Nurse Practitioner
DX: D12.6 Benign neoplasm of colon, unspecified (principal)
CPT/HCPCS: 99213

== ENCOUNTER → 2024-08-11 13:53 | Outpatient (BNVA) | payer MEDICARE, MEDICAID, SELFPAY | PROVIDERS: PCP Internal Medicine; Visit Provider Nurse Practitioner | DX: D12.6 Benign neoplasm of colon, unspecified (principal); K52.9 Noninfective gastroenteritis and colitis, unspecified; K92.2 Gastrointestinal hemorrhage, unspecified | CPT/HCPCS: 99212 ==

== ENCOUNTER 2024-09-15 10:16 | Outpatient (AMB) | payer MEDICARE, MEDICAID, SELFPAY ==
[2024-09-15 10:36] VITALS: BP 100/58; PULSE 77; O2SAT 92; BMI 22.6
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
--- OUTSIDE RECORDS SUMMARY | 2024-09-15 10:37 | XMS_ITS | Clinical Summary ---
Author Organization [facility] Address [address] [place] [address] Care Team Providers Care Patrol Driver Name Role Phone Miller Villalpando MD Primary Care Provider [phone] Surgical History Surgery Date Site/Laterality Comments OTHER SURGICAL HISTORY PROCEDURE: ---- OTHER ----; COMMENT: right upper apex lung lobe removed APPENDECTOMY PROCEDURE: HISTORICAL APPENDECTOMY COLONOSCOPY 03/15/2014 [facility] PROCEDURE: HISTORICAL COLONOSCOPY; COMMENT: Two 8-10 mm adenomas; repeat in 3 yrs OTHER SURGICAL HISTORY 03/05/2014 PROCEDURE: VT ESOPHAGOSCOPY FLEXIBLE TRANSORAL DIAGNOSTIC; COMMENT: small HH; [...] high-fiber diet COLONOSCOPY W/ POLYPECTOMY 09/09/2017 PROCEDURE: VT COLSC FLX W/RMVL OF TUMOR POLYP LESION SNARE TQ; COMMENT: 12 small polyps, all adenomas; hemorrhoids. Repeat in 3 years under propofol OTHER SURGICAL HISTORY PROCEDURE: IMPLANT BREAST SILICONE/EQ TUBAL LIGATION PROCEDURE: HISTORICAL TUBAL LIGATION OTHER SURGICAL HISTORY PROCEDURE: VT REMOVAL OF LUNG PNEUMONECTOMY Medical History Medical History Date Comments Asthma 09/22/2016 DX:Asthma COPD (chronic obstructive pu lmonary disease) (CMS/HCC V24, CMS/HCC V28) 09/22/2016 DX:COPD (chronic o bstructive pulmonary disease) (HCC) Chronic bronchitis (CMS/HCC V24, CMS/HCC V28) 09/22/2016 DX:Chronic bronchitis (HCC) Bronchiectasis ([facility] V24, [facility] V28) 09/22/2016 DX:Bronchiectasis (HCC) Mitral valve [...] C and G neg. Colposcopy 04/18/2014 Seizure ([facility] V24, [facility] V28) 09/22/2016 DX:Seizure (HCC); COMMENT: Patient [...] RESULTING AGENCY - 05/28/2020 10:55 AM EST [id number] THINPREP PAP, IMAGED: NEGATIVE FOR SQUAMOUS INTRAEPITHELIAL [...] Recently Relevant to Health Maintenance Care Teams Patrol Driver Relationship Specialty Start Date End Date Miller Villalpando MD [address] [place] [address] [place] [id number] PCP - General Internal Medicine 10/14/20
--- OUTSIDE RECORDS SUMMARY | 2024-09-15 10:37 | XMS_ITS | Clinical Summary ---
Author Organization [facility] Address [address] [place] [address] Care Team Providers Care Upholstery Covers Inspector Name Role Phone Unavailable Primary Care [...] 5000 PLUS) 1.1 % creaIndications :Enamel caries [place] twice daily with toothpaste then expectorate. Do not rinse. 51 g 3 2 Active Active Problems No known active problems Encounters Date Type Department Care Team Description 09/07/2024 10:00 AM EDT Office Visit [facility] [address] [place] [phone] Mary Hogue DMD Caries (Primary Dx); Defective dental worship 06/23/2024 1:40 PM EST Office Visit [facility] [id number] [place] [phone] Mary Hogue, AMISHA Tooth missing, unspecified edentulism (Primary Dx) 06/21/2024 1:00 PM EST Office Visit [facility] [address] [place] [phone] Mary Hogue, AMISHA Tooth missing, unspecified edentulism (Primary Dx) from Last 3 Months Social History Tobacco [...] Sign Reading Time Taken Comments Blood Pressure 120/74 09/07/2024 10:00 AM EDT Pulse 77 09/07/2024 10:00 AM EDT Temperature - - Respiratory Rate - - Oxygen Saturation - - Inhaled Oxygen Concentration - - Weight - - Height - - Body Mass Index - - Plan of Treatment Upcoming Encounters Date Type Department Care Team (Late st Contact Info) Description 11/20/2024 10:20 AM EDT Office Visit [address] [phone] Daniel Hammond RHD [address] [place] [address] Health Maintenance Due Date Last Done Comments [...] Diabetes Screening 07/26/2023 07/25/2020, 0 05/17/2019, 11/25/2017 [id number] ( season) 2024 Imm-Influenza (#1) 2024 02/02/2020, 03/16/2016 Alcohol and Drug Screen 05/03/2024 Depression Annual Screen 05/03/2024 Dental BW 05/20/2025 05/18/2024, 12/0 05/2022, 10/21/2022, Additional history exists Dental Examination 05/20/2025 05/18/2024, 1 06/03/2022, 10/21/2022, Additional history exists Dental Perio Charting 05/20/2025 05/18/2024 , 04/02/2023, 04/07/2022, Additional history exists Dental Prophy 05/20/2025 05/18/2024, 12/0 05/2022, 10/21/2022, Additional history exists Lipid Screening 07/25/2025 07/25/2020, 05/17/2019 Hypertension Screening (#1) 09/07/2025 Dental FMX/Pano 01/23/2027 01/21/2022 Imm-DTaP/Tdap/Td (2 - Td or Tdap) 04/01/2027 017 Imm-Hepatitis B Completed 10/18/2017, 05/03, 04/01/2017 HIV Screening Completed 11/25/2017 Hepatitis C Screening Completed 11/25/2017 Cervical Ablation/Cold-Knife Conization Discontinued Cervical Cryotherapy Discontinued Colposcopy Discontinued Endometrial Biopsy Discontinued Excision/Leep Discontinued HPV Genotyping Discontinued Vaginal Pap Discontinued Vulvoscopy Discontinued Procedures Procedure Name Priority Date/Time Associated Diagnosis Comments BITEWING - SINGLE RADIOGRAPHIC IMAGE Routine 09/07/2024 10:00 AM EDT Defective dental worship Caries 6 INTRAORAL - PERIAPICAL FIRST RADIOGRAPHIC IMAGE Routine 09/07/2024 10:00 AM EDT Caries 5 MB(V) RESIN-BASED COMPOSITE - TWO SURFACES POSTERIOR Routine 09/07/2024 10:00 AM EDT Defective dental worship Caries 6 D RESIN-BASED COMPOSITE ONE SURFACE ANTERIOR Routine 09/07/2024 10:00 AM EDT Caries Defective dental worship CASE PRESENTATION SUBS DTL & EXTENSIVE TX PLN Routine 09/07/2024 10:00 AM EDT Defective dental worship CASE PRESENTATION SUBS DTL & EXTENSIVE TX [...] 1:00 PM EST Tooth missing, unspecified edentulism COMP PERIODONTAL EVALUATION - NEW/EST PATIENT Routine 05/18/2024 1:40 PM EST Caries of enamel (incipient) Encounter for dental examination BITEWINGS - FOUR RADIOGRAPHIC IMAGES Routine 05/18/2024 1:40 PM EST Caries of enamel (incipient) Encounter for dental examination PROPHYLAXIS - ADULT Routine 05/18/2024 1 :40 PM EST Caries of enamel (incipient) Encounter for dental examination PERIODIC ORAL EVALUATION ESTABLISHED PATIENT Routine 05/18/2024 1:40 PM EST Caries of enamel (incipient) Encounter for dental examination Full INTRAORAL - COMP SERIES OF RADIOGRAPHIC IMAGES Routine 01/21/2022 1:00 PM EDT Gingivitis, chronic, plaque induced from Last 3 Months or Most Recently Relevant to Health Maintenance Insurance [place] MED[place] DENTAL [facility]
== END 2024-09-15 11:14 | disposition home or self-care (01) ==
LOC: HO.HMCH 10:16
PROVIDERS: PCP Internal Medicine; Visit Provider Internal Medicine
DX: Z00.00 Encounter for general adult medical examination without abnormal findings (principal); J44.9 Chronic obstructive pulmonary disease, unspecified; F17.210 Nicotine dependence, cigarettes, uncomplicated; D12.6 Benign neoplasm of colon, unspecified; M47.816 Spondylosis without myelopathy or radiculopathy, lumbar region; F41.1 Generalized anxiety disorder; E78.5 Hyperlipidemia, unspecified; I10 Essential (primary) hypertension; G47.33 Obstructive sleep apnea (adult) (pediatric); K21.9 Gastro-esophageal reflux disease without esophagitis; B35.3 Tinea pedis; B35.1 Tinea unguium

== ENCOUNTER → 2024-09-15 10:16 | Outpatient (BNVA) | payer MEDICARE, MEDICAID, SELFPAY | PROVIDERS: PCP Internal Medicine; Visit Provider Internal Medicine | DX: Z00.01 Encounter for general adult medical examination with abnormal findings (principal); D12.6 Benign neoplasm of colon, unspecified; M47.816 Spondylosis without myelopathy or radiculopathy, lumbar region; F41.1 Generalized anxiety disorder; E78.5 Hyperlipidemia, unspecified; I10 Essential (primary) hypertension; J44.89 Other specified chronic obstructive pulmonary disease; G47.33 Obstructive sleep apnea (adult) (pediatric); K21.9 Gastro-esophageal reflux disease without esophagitis; B35.3 Tinea pedis; B35.1 Tinea unguium; Z87.891 Personal history of nicotine dependence | CPT/HCPCS: 96127; 99396 ==

== ENCOUNTER 2024-10-09 13:43 | Outpatient (AMB) | payer MEDICARE, MEDICAID, SELFPAY ==
[2024-10-09 13:52] VITALS: BP 110/78
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
--- OUTSIDE RECORDS SUMMARY | 2024-10-09 15:33 | XMS_ITS | Clinical Summary ---
Author Organization [facility] Address [address] [place] [address] Care Team Providers Care Lamp Shade Sewer Name Role Phone Unavailable Primary Care Provider [...] 5000 PLUS) 1.1 % creaIndications :Enamel caries [place] twice daily with toothpaste then expectorate. Do not rinse. 51 g 3 2 Active Active Problems No known active problems Encounters Date Type Department Care Team Description 09/07/2024 10:00 AM EDT Office Visit [facility] [address] [place] [phone] Mary Hogue DMD Caries (Primary Dx); Defective dental alevism from Last 3 Months Social History Tobacco [...] Description 11/20/2024 10:20 AM EDT Office Visit [facility] [address] [place] [phone] Daniel Hammond RHD [address] [place] [address] Health Maintenance Due Date Last Done Comments [...] Diabetes Screening 07/26/2023 07/25/2020, 0 05/17/2019, 11/25/2017 [id number] () 01/02/2024 Alcohol and Drug Screen 05/03/2024 Depression Annual Screen 05/03/2024 Imm-Influenza (Season Ended) 2025 02/02/2020, 03/16/2016 Dental BW 05/20/2025 05/18/2024, 1205/2022, 10/21/2022, Additional history exists Dental Examination 05/20/2025 05/18/2024, 1 06/03/2022, 10/21/2022, Additional history exists Dental Perio Charting 05/20/2025 05/18/2024 , 04/02/2023, 04/07/2022, Additional history exists Dental Prophy 05/20/2025 05/18/2024, 05/2022, 10/21/2022, Additional history exists Lipid Screening [...] Routine 09/07/2024 10:00 AM EDT Defective dental alevism Caries 6 INTRAORAL - PERIAPICAL FIRST RADIOGRAPHIC IMAGE Routine 09/07/2024 10:00 AM EDT Caries 5 MB(V) RESIN-BASED COMPOSITE - TWO SURFACES POSTERIOR Routine 09/07/2024 10:00 AM EDT Defective dental alevism Caries 6 D RESIN-BASED COMPOSITE ONE SURFACE ANTERIOR Routine 09/07/2024 10:00 AM EDT Caries Defective dental alevism CASE PRESENTATION SUBS DTL & EXTENSIVE TX PLN Routine 09/07/2024 10:00 AM EDT Defective dental alevism COMP PERIODONTAL EVALUATION - NEW/EST PATIENT Routine [...] to Health Maintenance Insurance [place] MEDICAID DENTAL T DENTAL
== END 2024-10-09 14:23 | disposition home or self-care (01) ==
LOC: HO.HWS 13:43
PROVIDERS: PCP Internal Medicine; Visit Provider Obstetrics & Gynecology
DX: Z01.419 Encounter for gynecological examination (general) (routine) without abnormal findings (principal)
CPT/HCPCS: 99396; 99459

== ENCOUNTER → 2024-10-09 13:43 | Outpatient (BNVA) | payer MEDICARE, MEDICAID, SELFPAY | PROVIDERS: PCP Internal Medicine; Visit Provider Obstetrics & Gynecology | DX: Z01.419 Encounter for gynecological examination (general) (routine) without abnormal findings (principal); Z98.51 Tubal ligation status | CPT/HCPCS: 99396; 99459 ==

== ENCOUNTER 2024-10-16 08:18 | Outpatient (REF) | payer MEDICARE, MEDICAID, SELFPAY ==
[2024-10-16 08:36] LABS: MANUAL DIFF FLAG NO
--- OUTSIDE RECORDS SUMMARY | 2024-10-16 08:36 | XMS_ITS | Clinical Summary ---
Author Organization [facility] Address [address] [place] [address] Care Team Providers Care Grades 1 6 Tutor Name Role Phone Unavailable Primary Care Provider [...] 5000 PLUS) 1.1 % creaIndications :Enamel caries [place] twice daily with toothpaste then expectorate. Do not rinse. 51 g 3 2 Active Active Problems No known active problems Encounters Date Type Department Care Team Description 09/07/2024 10:00 AM EDT Office Visit [facility] [address] [place] [phone] Mary Hogue DMD Caries (Primary Dx); Defective dental shinto from Last 3 Months Social History Tobacco [...] Description 11/20/2024 10:20 AM EDT Office Visit [facility] [address] [place] [phone] Daniel Hammond RHD [address] [place] [address] Health Maintenance Due Date Last Done Comments [...] Diabetes Screening 07/26/2023 07/25/2020, 0 05/17/2019, 11/25/2017 [id number] () 01/02/2024 Alcohol and Drug Screen 05/03/2024 [...] Routine 09/07/2024 10:00 AM EDT Defective dental shinto Caries 6 INTRAORAL - PERIAPICAL FIRST RADIOGRAPHIC IMAGE Routine 09/07/2024 10:00 AM EDT Caries 5 MB(V) RESIN-BASED COMPOSITE - TWO SURFACES POSTERIOR Routine 09/07/2024 10:00 AM EDT Defective dental shinto Caries 6 D RESIN-BASED COMPOSITE ONE SURFACE ANTERIOR Routine 09/07/2024 10:00 AM EDT Caries Defective dental shinto CASE PRESENTATION SUBS DTL & EXTENSIVE TX PLN Routine 09/07/2024 10:00 AM EDT Defective dental shinto COMP PERIODONTAL EVALUATION - NEW/EST PATIENT Routine [...] Most Recently Relevant to Health Maintenance Insurance [place] MEDICAID DENTAL T DENTAL
[2024-10-16 09:14] LABS: Basophils Absolute Auto 0.1 X10*3/uL (0.0-0.2); Basophils Percent Auto 1.3 % (0-2); Eosinophils Absolute Auto 0.1 X10*3/uL (0.0-0.4); Eosinophils Percent Auto 1.3 % (0-4); Hematocrit 33.5 % (37.0-47.0); Hemoglobin 11.3 g/dl (12.0-16.0); Lymphocytes Absolute Auto 1.3 X10*3/uL (1.2-4.9); Lymphocytes Percent Auto 32.3 % (20-40); Mean Corpuscular HGB Conc 33.7 g/dl (31.0-35.0); Mean Corpuscular Hemoglobin 32.4 pg (27.0-33.0); Mean Platelet Volume 10.4 fL (9.4-12.3); Monocytes Absolute Auto 0.4 X10*3/uL (0.1-1.2); Neutrophils Absolute Auto 2.2 x10*3/uL (2.0-8.3); Neutrophils Percent Auto 56.1 % (45-73); Platelet Count 228 X10*3/uL (160-400); Red Blood Count 3.49 X10*6/uL (4.20-5.50); Red Cell Distribution Width 15.1 % (11.0-16.0)
[2024-10-16 09:41] LABS: Alanine Aminotransferase 9 U/L (0-31); Albumin Level 4.4 g/dL (3.5-5.0); Alkaline Phosphatase 72 U/L (39-117); Anion Gap 12 (12-20); Aspartate Amino Transferase 21 U/L (5-31); Bilirubin Total 0.3 mg/dL (0.0-1.0); Blood Urea Nitrogen 6 mg/dL (9-16); Calcium 9.4 mg/dL (8.4-10.2); Carbon Dioxide 26 mmol/L (22-29); Chloride 105 mmol/L (96-108); Cholesterol 217 mg/dL (<200); Estimated Glomerular Filt Rate 49; Glucose Random 90 mg/dL (60-115); HDL Cholesterol 53 mg/dL (>40); LDL Cholesterol Calculated 150 mg/dL (<100); Potassium 4.1 mmol/L (3.3-5.1); Sodium 139 mmol/L (135-145); Total Protein 6.6 g/dL (6.5-8.0); Triglycerides 72 mg/dL (<150)
[2024-10-16 09:56] LABS: Appearance Urine Clear; Color Urine Dark Yellow; Glucose Urine UA Negative (Negative); Leukocyte Esterase Urine Trace (Negative); Nitrite Urine Negative (Negative); UMIC TRIGGER UACC YES; Urine Blood Negative (Negative); Urine Ketones Trace mg/dL (Negative); Urine Protein 30 (1+) mg/dL (Neg-Trace)
[2024-10-16 10:04] LABS: Free T4 (Free Thyroxine) 1.11 ng/dL (0.71-1.85); Thyroid Stimulating Hormone 0.39 uIU/mL (0.32-4.0); Vitamin D 25-OH Total 43.8 ng/mL (>30)
[2024-10-16 10:10] LABS: Folate > 20.0 ng/mL (> or = 4.0); Vitamin B12 374 pg/mL (200-900)
[2024-10-16 10:12] LABS: Bacteria Urine None Seen (None Seen); Hyaline Casts Urine 0-2 /LPF (0-2); RBC Urine 0-2 /HPF (0-2); Squamous Epithelial Cell Urine 0-2 /HPF (0-2); WBC Urine 0-5 /HPF (0-5)
== END 2024-10-16 08:19 | disposition home or self-care (01) ==
LOC: HO.LAB 08:18
PROVIDERS: PCP Internal Medicine; Visit Provider Internal Medicine
DX: E78.5 Hyperlipidemia, unspecified (principal); I10 Essential (primary) hypertension; E78.00 Pure hypercholesterolemia, unspecified; R30.0 Dysuria
CPT/HCPCS: 36415; 80053; 80061; 81001; 82306; 82607; 82746; 84439; 84443; 85025

== ENCOUNTER 2024-10-20 14:24 | Outpatient (AMB) | payer MEDICARE, MEDICAID, SELFPAY ==
--- OUTSIDE RECORDS SUMMARY | 2024-10-20 14:27 | XMS_ITS | Clinical Summary ---
Author Organization [facility] Address [address] [place] [address] Care Team Providers Care Network Manager Name Role Phone Unavailable Primary Care [...] 5000 PLUS) 1.1 % creaIndications :Enamel caries [place] twice daily with toothpaste then expectorate. Do not rinse. 51 g 3 2 Active Active Problems No known active problems Encounters Date Type Department Care Team Description 09/07/2024 10:00 AM EDT Office Visit [facility] [address] [place] [phone] Mary Hogue DMD Caries (Primary Dx); Defective dental sikhism from Last 3 Months Social History Tobacco [...] Description 11/20/2024 10:20 AM EDT Office Visit [facility] [address] [place] [phone] Daniel Hammond RHD [address] [place] [address] Health Maintenance Due Date Last Done Comments [...] Diabetes Screening 07/26/2023 07/25/2020, 0 05/17/2019, 11/25/2017 [id number] () 01/02/2024 Alcohol and Drug Screen 05/03/2024 Depression Annual Screen 05/03/2024 Imm-Influenza (Season Ended) 2025 02/02/2020, 03/16/2016 Dental BW 05/20/2025 05/18/2024, 05/2022, 10/21/2022, Additional [...] Routine 09/07/2024 10:00 AM EDT Defective dental sikhism Caries 6 INTRAORAL - PERIAPICAL FIRST RADIOGRAPHIC IMAGE Routine 09/07/2024 10:00 AM EDT Caries 5 MB(V) RESIN-BASED COMPOSITE - TWO SURFACES POSTERIOR Routine 09/07/2024 10:00 AM EDT Defective dental sikhism Caries 6 D RESIN-BASED COMPOSITE ONE SURFACE ANTERIOR Routine 09/07/2024 10:00 AM EDT Caries Defective dental sikhism CASE PRESENTATION SUBS DTL & EXTENSIVE TX PLN Routine 09/07/2024 10:00 AM EDT Defective dental sikhism COMP PERIODONTAL EVALUATION - NEW/EST PATIENT Routine [...] Most Recently Relevant to Health Maintenance Insurance [place] MEDICAID DENTAL [facility]
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
[2024-10-20 14:29] VITALS: BP 112/70; PULSE 70; TEMP 36.3; O2SAT 94; BMI 22.5
== END 2024-10-20 15:03 | disposition home or self-care (01) ==
LOC: HO.HMCH 14:25
PROVIDERS: PCP Internal Medicine; Visit Provider Internal Medicine
DX: D64.9 Anemia, unspecified (principal); I10 Essential (primary) hypertension; K21.9 Gastro-esophageal reflux disease without esophagitis; J44.9 Chronic obstructive pulmonary disease, unspecified; G47.33 Obstructive sleep apnea (adult) (pediatric); F17.210 Nicotine dependence, cigarettes, uncomplicated; E78.5 Hyperlipidemia, unspecified; R20.0 Anesthesia of skin

== ENCOUNTER → 2024-10-20 14:24 | Outpatient (BNVA) | payer MEDICARE, MEDICAID, SELFPAY | PROVIDERS: PCP Internal Medicine; Visit Provider Internal Medicine | DX: I10 Essential (primary) hypertension (principal); D64.9 Anemia, unspecified; K21.9 Gastro-esophageal reflux disease without esophagitis; J44.9 Chronic obstructive pulmonary disease, unspecified; G47.33 Obstructive sleep apnea (adult) (pediatric); F17.210 Nicotine dependence, cigarettes, uncomplicated; E78.5 Hyperlipidemia, unspecified; R20.0 Anesthesia of skin; Z99.89 Dependence on other enabling machines and devices | CPT/HCPCS: 99212 ==

== ENCOUNTER 2024-11-20 08:12 | Outpatient (REF) | payer MEDICARE, MEDICAID, SELFPAY ==
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
--- OUTSIDE RECORDS SUMMARY | 2024-11-20 08:16 | XMS_ITS | Clinical Summary ---
Author Organization [facility] Address [address] [place] [address] Care Team Providers Care Office Machine Repair Shop Supervisor Name Role Phone Miller Villalpando MD Primary Care Provider [phone] Surgical History Surgery Date Site/Laterality Comments OTHER SURGICAL HISTORY PROCEDURE: ---- OTHER ----; COMMENT: right upper apex lung lobe removed APPENDECTOMY PROCEDURE: HISTORICAL APPENDECTOMY COLONOSCOPY 03/15/2014 [facility] PROCEDURE: HISTORICAL COLONOSCOPY; COMMENT: Two 8-10 mm adenomas; repeat in 3 yrs OTHER SURGICAL HISTORY 03/05/2014 PROCEDURE: MS ESOPHAGOSCOPY FLEXIBLE TRANSORAL DIAGNOSTIC; COMMENT: small HH; [...] high-fiber diet COLONOSCOPY W/ POLYPECTOMY 09/09/2017 PROCEDURE: MS COLSC FLX W/RMVL OF TUMOR POLYP LESION SNARE TQ; COMMENT: 12 small polyps, all adenomas; hemorrhoids. Repeat in 3 years under propofol OTHER SURGICAL HISTORY PROCEDURE: IMPLANT BREAST SILICONE/EQ TUBAL LIGATION PROCEDURE: HISTORICAL TUBAL LIGATION OTHER SURGICAL HISTORY PROCEDURE: MS REMOVAL OF LUNG PNEUMONECTOMY Medical History Medical History Date Comments Asthma 09/22/2016 DX:Asthma COPD (chronic obstructive pu lmonary disease) (CMS/HCC V24, CMS/HCC V28) 09/22/2016 DX:COPD (chronic o bstructive pulmonary disease) (HCC) Chronic bronchitis (CMS/HCC V24, CMS/HCC V28) 09/22/2016 DX:Chronic bronchitis (HCC) Bronchiectasis ([facility] V24, [facility] V28) 09/22/2016 DX:Bronchiectasis (HCC) Mitral valve prolapse [...] C and G neg. Colposcopy 04/18/2014 Seizure ([facility] V24, [facility] V28) 09/22/2016 DX:Seizure (HCC); COMMENT: Patient states [...] history exists Colorectal Cancer Screening: Colonoscopy 04/11/2022 HIV Screening 04/11/2022 Hepatitis C Screening 04/11/2022 Osteoporosis Screening (Bone Density Screening) 04/11/2022 Social Influencers of Health Screening 04/11/2022 Cervical Cancer Screening: Pap Smear 05/21/2023 05/21/2020 COVID-19 Vaccine ( - season) 2024 Depression Screening 05/03/2024 Influenza Vaccine (#1) 2025 02/02/2020, 2015 DTaP,Tdap,and Td Vaccines (2 - [...] RESULTING AGENCY - 05/28/2020 10:55 AM EST [id number] THINPREP PAP, IMAGED: NEGATIVE FOR SQUAMOUS INTRAEPITHELIAL LESION AND MALIGNANCY . REACTIVE CELLULAR CHANGES. SHENA LAZARO , YUSRA(ASCP) (CASE SCREENED 05 23 2020) JASE VAZQUEZ M.D. , PATHOLOGIST (CASE ELECTRONICALLY SIGNED 05 27 2020) RESULT OF APTIMA HIGH RISK HPV ASSAY: HIGH RISK HPV: NEGATIVE (SEROTYPES 16,18,31,33,35,39,45,51,52,56,58,59,66,68) COMPLETED ON 2020-05-22 ADEQUACY: SATISFACTORY ENDOCERVICAL/TRANSFORMATION ZONE COMPONENT ABSENT. SOURCE: THINPREP PAP HPV ANY DX: REFLEX 16 AND 18, CERVICAL, IMAGED CLINICAL INFORMATION: [...] Recently Relevant to Health Maintenance Care Teams Office Machine Repair Shop Supervisor Relationship Specialty Start Date End Date Miller Villalpando MD [address] [place] [address] PCP - General Internal Medicine 10/14/20
== END 2024-11-20 08:13 | disposition home or self-care (01) ==
LOC: HO.MAMMO 08:12
PROVIDERS: PCP Internal Medicine; Visit Provider Obstetrics & Gynecology
DX: Z12.31 Encounter for screening mammogram for malignant neoplasm of breast (principal)
CPT/HCPCS: 77063; 77067

== ENCOUNTER → 2024-11-20 08:15 | Outpatient (BNV) | payer MEDICARE, MEDICAID, SELFPAY | PROVIDERS: PCP Internal Medicine; Visit Provider Radiology Body Imaging | DX: Z12.31 Encounter for screening mammogram for malignant neoplasm of breast (principal) | CPT/HCPCS: 77063; 77067 ==

== ENCOUNTER 2024-11-21 16:35 | Emergency (ER) | payer MEDICARE, MEDICAID, SELFPAY ==
--- NOTE | ~2024-11-21 | CT_ITS ---
CLINICAL HISTORY: pleuritic chest pain CTA chest with 3-D postprocessing Comparison: CT/SR - CT LUNG SCREENING - 07/07/24 10:[address]/REG/SR - CT ANGIO CHEST PE PROTOCOL - 02/22/23 16:54 EDT Findings: Study quality is adequate for the diagnosis of pulmonary embolism. No pulmonary embolism. Heart size within normal limits. RV/LV ratio is normal. No calcified coronary artery disease. No aortic dissection or aneurysm. Mild calcified atherosclerotic disease. No lymphadenopathy. Substantial paraseptal emphysema measuring up to 5.7 cm. Right upper lobe paraseptal emphysema measuring 3.5 cm which protrudes into an intercostal hernia between the 2nd and 3rd ribs, similar to the most recent prior study. Mild biapical scarring with calcification. Extensive confluent centrilobular emphysema. Mild increased subpleural reticulation. No pneumothorax or pleural effusion. No acute osseous or soft tissue abnormality. Intact bilateral saline breast implants. No acute pathology in the imaged portion of the upper abdomen. Impression: No pulmonary embolism or other acute findings. This document has been electronically signed by: Shantel Padilla MD on 11/21/2024 21:07:12
--- NOTE | ~2024-11-21 | XR_ITS ---
CLINICAL HISTORY: SOB 1 view chest x-ray Comparison: CR/SR - XR CHEST 2 VIEWS - 02/17/23 19:56 EDT CR/SR - XR CHEST 2 VIEWS - 06/17/22 03:46 EST Findings: The lungs are clear. Normal size heart. No acute fracture. IMPRESSION: 1. No acute findings. This document has been electronically signed by: Arpita Davison MD on 11/21/2024 18:11:59
[2024-11-21 16:46] VITALS: BP 164/77; PULSE 83; RESP 24; TEMP 36.9; O2SAT 96; BMI 20.8
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
[2024-11-21 17:31] LABS: MANUAL DIFF FLAG NO
[2024-11-21 17:33] LABS: Hematocrit 31.6 % (37.0-47.0); Hemoglobin 11.1 g/dl (12.0-16.0); Imm Gran Abs Auto 0.01 X10*3/uL (0.00-0.03); Imm Gran Pct Auto 0.2 % (0.0-0.4); Lymphocytes Absolute Auto 1.4 X10*3/uL (1.2-4.9); Mean Corpuscular HGB Conc 35.1 g/dl (31.0-35.0); Mean Corpuscular Hemoglobin 32.9 pg (27.0-33.0); Mean Corpuscular Volume 93.8 fL (80.0-98.0); NRBC Abs Auto 0.000 X10*3/uL (0.0-0.012); NRBC Pct Auto 0.0 /100WBC (0.0-0.2); Platelet Count 247 X10*3/uL (160-400); Red Blood Count 3.37 X10*6/uL (4.20-5.50); White Blood Count 5.5 X10*3/uL (4.8-10.8)
[2024-11-21 17:42] LABS: INTERNATIONAL NORM RATIO 1.0 (0.9-1.1); Prothrombin Time 11.8 SEC (10.9-12.4)
[2024-11-21 17:45] LABS: Partial Thromboplastin Time 36.4 SEC (26.0-36.8)
[2024-11-21 17:48] LABS: Alanine Aminotransferase 9 U/L (0-31); Albumin Level 4.5 g/dL (3.5-5.0); Alkaline Phosphatase 68 U/L (39-117); Anion Gap 13 (12-20); Aspartate Amino Transferase 17 U/L (5-31); Blood Urea Nitrogen 6 mg/dL (9-16); Calcium 8.9 mg/dL (8.4-10.2); Carbon Dioxide 24 mmol/L (22-29); Chloride 106 mmol/L (96-108); Creatinine Clr Calc Pharmacy 61.4; Estimated Glomerular Filt Rate 58; Potassium 3.5 mmol/L (3.3-5.1); Sodium 139 mmol/L (135-145); Total Protein 6.3 g/dL (6.5-8.0)
[2024-11-21 17:52] LABS: B Type Natriuretic Peptide 18 pg/mL (<100)
[2024-11-21 17:55] LABS: Troponin-I High Sensitivity 3.1 ng/L (<3.5-17.0)
[2024-11-21 18:03] VITALS: BP 142/83; PULSE 77; RESP 18; TEMP 36.6; O2SAT 96
[2024-11-21 18:09] LABS: Resp Syncy Virus RNA Qual PCR NEGATIVE (Negative); SARS COV2 PCR INHOUSE NEGATIVE (Negative)
[2024-11-21] MEDS: Albuterol Sulfate 2.5 MG, Albuterol/Iprat 2.5/0.5MG 3 ML 3 ML INHALE (18:29)
[2024-11-21] MEDS: guaiFENesin 200 MG/10 ML 10 ML LIQUID PO (18:31)
[2024-11-21 18:32] VITALS: PULSE 73; RESP 16; O2SAT 95
[2024-11-21] MEDS: iohexoL 350 MG/ML 100 ML INFUS..BTL IV (19:01)
[2024-11-21 19:19] VITALS: BP 123/67; PULSE 92; RESP 14; TEMP 36.5; O2SAT 97
[2024-11-21 20:59] VITALS: BP 129/85; PULSE 87; RESP 18; TEMP 36.8; O2SAT 98
== END 2024-11-21 21:00 | disposition home or self-care (01) ==
PROVIDERS: Physician Assistant; Emergency Provider Emergency Medicine; PCP Internal Medicine
DX: R06.02 Shortness of breath (principal); I10 Essential (primary) hypertension; E78.5 Hyperlipidemia, unspecified; D64.9 Anemia, unspecified; R05.9 Cough, unspecified; Z03.818 Encounter for observation for suspected exposure to other biological agents ruled out; J44.9 Chronic obstructive pulmonary disease, unspecified; Z99.81 Dependence on supplemental oxygen; Z99.89 Dependence on other enabling machines and devices; G89.4 Chronic pain syndrome; Z87.891 Personal history of nicotine dependence; Z79.899 Other long term (current) drug therapy
CPT/HCPCS: 71045; 71275; 80053; 83880; 84484; 85025; 85610; 85730; 87637; 94640; 99284; 99285; Q9967

== ENCOUNTER → 2024-11-21 16:50 | Outpatient (BNV) | payer MEDICARE, MEDICAID, SELFPAY | PROVIDERS: Emergency Provider Emergency Medicine; PCP Internal Medicine; Visit Provider Radiology Diagnostic Radiology | DX: R06.02 Shortness of breath (principal); R52 Pain, unspecified | CPT/HCPCS: 71045; 71275 ==

== ENCOUNTER 2024-11-29 10:18 | Outpatient (AMB) | payer MEDICARE, MEDICAID, SELFPAY ==
[2024-11-29 10:21] VITALS: BP 120/82; PULSE 86; RESP 18; TEMP 36.1; O2SAT 95; BMI 21.2
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
--- OUTSIDE RECORDS SUMMARY | 2024-11-29 11:08 | XMS_ITS | Encounter Summary ---
Author Organization [facility] Address [address] [place] [address] Care Team Providers Care Clinic Office Assistant Name Role Phone Celio Marmolejo MD Primary Care Provider [phone] Miller Villalpando Primary Care Provider Unavailabl e Reason for Visit * Reason Onset Date Comments Provider Call Back 08/30/2017 Encounter Details Date Type Department Care Team Description 08/30/2017 Telephone Podiatry - [place] [address] [place] [address] Ghulam Byrd DPM Provider Call Back Social [...] on filedocumented in this encounter Care Teams Clinic Office Assistant Relationship Specialty Start Date End Date Celio Marmolejo MD [address] [place] [address] PCP - General Internal Medicine 08/31/16 10/13/20 Miller Villalpando [address] [place] [address] PCP - General Internal Medicine 10/14/20 documented as of this encounter
--- OUTSIDE RECORDS SUMMARY | 2024-11-29 11:08 | XMS_ITS | Clinical Summary ---
Author Organization [facility] Address [address] [place] [address] Care Team Providers Care Health Insurance Assessor Name Role Phone Miller Villalpando MD Primary Care Provider Surgical History Surgery Date Site/Laterality Comments OTHER SURGICAL HISTORY PROCEDURE: ---- OTHER ----; COMMENT: right upper apex lung lobe removed APPENDECTOMY PROCEDURE: HISTORICAL APPENDECTOMY COLONOSCOPY 03/15/2014 [facility] PROCEDURE: HISTORICAL COLONOSCOPY; COMMENT: Two 8-10 mm adenomas; repeat in 3 yrs OTHER SURGICAL HISTORY 03/05/2014 PROCEDURE: MA ESOPHAGOSCOPY FLEXIBLE TRANSORAL DIAGNOSTIC; COMMENT: small HH; [...] high-fiber diet COLONOSCOPY W/ POLYPECTOMY 09/09/2017 PROCEDURE: MA COLSC FLX W/RMVL OF TUMOR POLYP LESION SNARE TQ; COMMENT: 12 small polyps, all adenomas; hemorrhoids. Repeat in 3 years under propofol OTHER SURGICAL HISTORY PROCEDURE: IMPLANT BREAST SILICONE/EQ TUBAL LIGATION PROCEDURE: HISTORICAL TUBAL LIGATION OTHER SURGICAL HISTORY PROCEDURE: MA REMOVAL OF LUNG PNEUMONECTOMY Medical History Medical History Date Comments Asthma 09/22/2016 DX:Asthma COPD (chronic obstructive pu lmonary disease) (CMS/HCC V24, CMS/HCC V28) 09/22/2016 DX:COPD (chronic o bstructive pulmonary disease) (HCC) Chronic bronchitis (CMS/HCC V24, CMS/HCC V28) 09/22/2016 DX:Chronic bronchitis (HCC) Bronchiectasis ([facility] V24, CMS/[facility] V28) 09/22/2016 DX:Bronchiectasis (HCC) Mitral valve [...] C and G neg. Colposcopy 04/18/2014 Seizure ([facility] V24, [facility] V28) 09/22/2016 DX:Seizure (HCC); COMMENT: Patient [...] RESULTING AGENCY - 05/28/2020 10:55 AM EST [id number] THINPREP PAP, IMAGED: NEGATIVE FOR SQUAMOUS INTRAEPITHELIAL [...] Recently Relevant to Health Maintenance Care Teams Health Insurance Assessor Relationship Specialty Start Date End Date Miller Villalpando MD [address] [place] [address] PCP - General Internal Medicine 10/14/20
--- OUTSIDE RECORDS SUMMARY | 2024-11-29 11:08 | XMS_ITS | Clinical Summary ---
Author Organization [facility] Address [address] [place] [address] Care Team Providers Care Marketing Support Specialist Name Role Phone Unavailable Primary Care [...] Active Allergy Reactions Criticality Noted Date Comments Doxycycline 11/16/2024 Prednisone Anxiety,Dizziness,Lawson llucina tions,Headache,Intolerance - Will Not Trigger Allergy Alert,Other (See Comments),Palpitations,Phot osensitivity,Tinnitus,Unkno wn 09/22/2016 Induces psychosis Medications fluoride, sodium, (SF 5000 PLUS) 1.1 % creaIndications :Enamel caries Cameron twice daily with toothpaste then expectorate. Do not rinse. 51 g 3 2 Active Active Problems No known active problems Encounters Date Type Department Care Team Description 11/16/2024 1:00 PM EDT Office Visit [facility] [address] [place] [phone] Mary Hogue DMD 09/07/2024 10:00 AM EDT Office Visit [facility] [address] [place] [phone] Mary Hogue DMD from Last 3 Months Social History Tobacco [...] Description 12/01/2024 11:20 AM EDT Office Visit [facility] [address] [place] [address] Jane Shelley [address] [place] [address] Health Maintenance Due Date Last Done Comments Anxiety Screening 1966 HPV Screening 1966 Pap + HPV 1966 Tobacco Cessation Counseling (#1) 1966 Cervical Cancer Screening 1987 Pap Smear 1987 Breast Cancer Screening (Mammogram) 2006 CT Colonography 2011 Colonoscopy 2011 Colorectal Cancer Screening 2011 FIT/gFOBT 2011 Fecal DNA 2011 Flexible Sigmoidoscopy 2011 Imm-Zoster, Recombinant (1 of 2) 02/24/2016 Imm-Pneumococcal 50+ (2 of 2 - PCV20 or PCV21) 03/12/2016 03/12/2015 Diabetes Screening 07/26/2023 07/25/2020, 0 05/17/2019, 11/25/2017 Rfc-[id number]-10 (1 - season) 2024 Alcohol and Drug Screen 05/03/2024 Depression Annual Screen 05/03/2024 Imm-Influenza (#1) 2025 02/02/2020, 03/16/2016 Dental BW 05/20/2025 05/18/2024, 12/0 05/2022, 10/21/2022, Additional history exists Dental Examination 05/20/2025 05/18/2024, 1 06/03/2022, 10/21/2022, Additional history exists Dental Perio Charting 05/20/2025 05/18/2024 , 04/02/2023, 04/07/2022, Additional history exists Dental Prophy 05/20/2025 05/18/2024, 1205/2022, 10/21/2022, Additional history exists Lipid Screening 07/25/2025 07/25/2020, 05/17/2019 Hypertension Screening (#1) 11/16/2025 Dental FMX/Pano 01/23/2027 01/21/2022 Imm-DTaP/Tdap/Td (2 - [...] Routine 11/16/2024 1:00 PM EDT Cementum caries BITEWING - SINGLE RADIOGRAPHIC IMAGE Routine 09/07/2024 [...] Most Recently Relevant to Health Maintenance Insurance [employer]
== END 2024-11-29 11:13 | disposition home or self-care (01) ==
LOC: HO.HMCH 10:19
PROVIDERS: PCP Internal Medicine; Visit Provider Internal Medicine
DX: J44.9 Chronic obstructive pulmonary disease, unspecified (principal); F17.210 Nicotine dependence, cigarettes, uncomplicated; B35.1 Tinea unguium

== ENCOUNTER → 2024-11-29 10:18 | Outpatient (BNVA) | payer MEDICARE, MEDICAID, SELFPAY | PROVIDERS: PCP Internal Medicine; Visit Provider Internal Medicine | DX: B35.1 Tinea unguium (principal); F17.210 Nicotine dependence, cigarettes, uncomplicated; G43.909 Migraine, unspecified, not intractable, without status migrainosus; G47.33 Obstructive sleep apnea (adult) (pediatric); J44.89 Other specified chronic obstructive pulmonary disease; I10 Essential (primary) hypertension; E78.00 Pure hypercholesterolemia, unspecified | CPT/HCPCS: 96127; 99212 ==

== ENCOUNTER 2024-12-13 08:41 | Outpatient (AMB) | payer MEDICARE, MEDICAID, SELFPAY ==
--- OUTSIDE RECORDS SUMMARY | 2024-12-11 10:20 | XMS_ITS | Encounter Summary ---
Author Organization [facility] Address [address] [place] [address] Care Team Providers Care Medical Records Manager Name Role Phone Unavailable Primary Care Provider Unavailabl e Reason for Visit * Reason Comments Dental Diagnostic Exam Encounter Details Date Type Department Care Team (Late st Contact Info) Description 12/11/2024 10:20 AM EDT Office Visit [facility] [address] [place] [phone] Mary Hogue, AMISHA [address] [place] [address] Social History Tobacco Use Types Packs/Day Years [...] Sign Reading Time Taken Comments Blood Pressure 114/69 12/11/2024 10:27 AM EDT Pulse 71 12/11/2024 10:27 AM EDT Temperature - - Respiratory Rate - - Oxygen Saturation - - Inhaled Oxygen Concentration - - Weight - - Height - - Body Mass Index - - documented in this encounter Progress Notes * Mary Hogue DMD - 12/11/2024 10:47 AM EDT Exam - Adult/Restorative Subjective Zuleima Bradford, 59 year old female, presents alone for Recall exam. Mechanical Engineering Manager: No Chief Complaint Patient presents with Dental Diagnostic Exam CC: pt is considering the extraction of #25, although she has no pain. Objective RMHx: Yes Vitals: Vitals: 12/11/24 1027 BP: 114/69 Pulse: 71 BP Site: Left Arm BP Position: Sitting BP Cuff Size: Regular Adult Pain Score: 0 - No pain Assessment EOE/IOE/Oral Cancer Screen: WNL OH: Excellent Fluoride exposure: toothpaste Home Care: Toothbrush 2 x per day, Floss 1 x per day Plaque: Generalized Slight Calculus: None Bone Loss: generalized, moderate 1 PA taken on #25: tooth has stable moderate loss (50%); no pain, mobility Class 0-1. Dx; Arrested periodontitis. Tx Plan: MONITOR #25. OHI & Nutrition counseling provided, discussed: Gingivitis, Periodontal disease Occlusion: N/A. Class II R & L. Overbite WNL. Overjet WNL. 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 Tooth #25 arrested periodontitis. [place] Plan: #31 L (V); #25 MONITOR, immediate extraction is not recommended. Plan Informed Consent/PARQ (Procedure, Alternatives, Risks, Questions): Discussed exam findings and treatment needs, questions answered. Patient confirms informed consent using PARQ, verbalizes understanding of exam findings and treatment plan. Dental procedures in this visit D0220 - INTRAORAL - PERIAPICAL FIRST RADIOGRAPHIC IMAGE (Completed) Service provider: Mary Hogue DMD Billing provider: Mary Hogue DMD D1206 - TOPICAL APPLICATION OF FLUORIDE VARNISH (Completed) Service provider: Mary Hogue DMD Billing provider: Mary Hogue DMD D1330 - ORAL HYGIENE INSTRUCTIONS (Completed) Service provider: Mary Hogue DMD Billing provider: Mary Hogue DMD D1310 - NUTRITIONAL COUNSELING CONTROL OF DENTAL DISEASE (Completed) Service provider: Mary Hogue DMD Billing provider: Mary Hogue DMD D0603 - CARIES RISK ASSESSMENT & DOC FINDING HIGH RISK (Completed) Service provider: Mary Hogue DMD Billing provider: Mary Hogue DMD D0120 - PERIODIC ORAL EVALUATION ESTABLISHED PATIENT (Completed) Service provider: Mary Hogue DMD Billing provider: Mary Hogue DMD D2391 - RESIN-BASED COMPOSITE - ONE SURFACE POSTERIOR 31 L(V) (Completed) Service provider: Mary Hogue DMD Billing provider: Mary Hogue DMD D9450 - CASE PRESENTATION SUBS DTL & EXTENSIVE TX PLN (Completed) Service provider: Mary Hogue DMD Billing provider: Mary Hogue DMD Tx provided: Given 4% Septo 1:100 K epi 1/2 carp local infiltration and PDL infiltration. Excavation completed, restored with GI, polished. Referrals: No orders of the following type(s) were placed in this encounter: Referral. Rx: Orders Placed This Encounter Medications fluoride, sodium, (SF 5000 PLUS) 1.1 % crea Sig: [place] twice daily with toothpaste then expectorate. Do not rinse.. Dispense: 51 g Refill: 5 Behavior: Excellent DA: Shaunna Smith [place]: Recall documented in this encounter Plan of Treatment Upcoming Encounters Date Type Department Care Team (Late st Contact Info) Description 06/19/2025 10:20 AM EST Office Visit [address] [phone] Daniel Hammond RHD [address] [place] [address] documented as of this encounter Procedures Procedure Name Priority Date/Time Associated Diagnosis Comments CARIES RISK ASSESSMENT & DOC FINDING HIGH RISK Routine 12/11/2024 10:20 AM EDT Caries TOPICAL APPLICATION OF FLUORIDE VARNISH Routine 12/11/2024 10:20 AM EDT Caries CASE PRESENTATION SUBS DTL & EXTENSIVE TX PLN Routine 12/11/2024 10:20 AM EDT Caries 31 L(V) RESIN-BASED COMPOSITE - ONE SURFACE POSTERIOR Routine 12/11/2024 10:20 AM EDT Caries ORAL HYGIENE INSTRUCTIONS Routine 12/11/2024 10:20 AM EDT Caries NUTRITIONAL COUNSELING CONTROL OF DENTAL DISEASE Routine 12/11/2024 10:20 AM EDT Caries INTRAORAL - PERIAPICAL FIRST RADIOGRAPHIC IMAGE Routine 12/11/2024 10:20 AM EDT Dentin hypersensitivity Caries PERIODIC ORAL EVALUATION ESTABLISHED PATIENT Routine 12/11/2024 10:20 AM EDT Caries documented in this encounter Visit Diagnoses Diagnosis Dentin hypersensitivity- Primary Other specified diseases of hard tissues of teeth Caries Unspecified dental caries documented in this encounter
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
[2024-12-13 08:45] VITALS: BP 110/58; PULSE 70; O2SAT 96; BMI 21.2
--- OUTSIDE RECORDS SUMMARY | 2024-12-13 08:57 | XMS_ITS | Clinical Summary ---
Author Organization [facility] Address [address] [place] [address] Care Team Providers Care Washing Machine Operator Name Role Phone Miller Villalpando MD Primary Care Provider [phone] Surgical History Surgery Date Site/Laterality Comments OTHER SURGICAL HISTORY PROCEDURE: ---- OTHER ----; COMMENT: right upper apex lung lobe removed APPENDECTOMY PROCEDURE: HISTORICAL APPENDECTOMY COLONOSCOPY 03/15/2014 [facility] PROCEDURE: HISTORICAL COLONOSCOPY; COMMENT: Two 8-10 mm adenomas; repeat in 3 yrs OTHER SURGICAL HISTORY 03/05/2014 PROCEDURE: HI ESOPHAGOSCOPY FLEXIBLE TRANSORAL DIAGNOSTIC; COMMENT: small HH; [...] high-fiber diet COLONOSCOPY W/ POLYPECTOMY 09/09/2017 PROCEDURE: HI COLSC FLX W/RMVL OF TUMOR POLYP LESION SNARE TQ; COMMENT: 12 small polyps, all adenomas; hemorrhoids. Repeat in 3 years under propofol OTHER SURGICAL HISTORY PROCEDURE: IMPLANT BREAST SILICONE/EQ TUBAL LIGATION PROCEDURE: HISTORICAL TUBAL LIGATION OTHER SURGICAL HISTORY PROCEDURE: HI REMOVAL OF LUNG PNEUMONECTOMY Medical History Medical History Date Comments Asthma 09/22/2016 DX:Asthma COPD (chronic obstructive pu lmonary disease) (CMS/HCC V24, CMS/HCC V28) 09/22/2016 DX:COPD (chronic o bstructive pulmonary disease) (HCC) Chronic bronchitis (CMS/HCC V24, CMS/HCC V28) 09/22/2016 DX:Chronic bronchitis (HCC) Bronchiectasis ([facility] V24, [facility] V28) 09/22/2016 DX:Bronchiectasis (HCC) Mitral valve prolapse [...] C and G neg. Colposcopy 04/18/2014 Seizure ([facility] V24, [facility] V28) 09/22/2016 DX:Seizure (HCC); COMMENT: Patient states [...] RESULTING AGENCY - 05/28/2020 10:55 AM EST [id number] THINPREP PAP, IMAGED: NEGATIVE FOR SQUAMOUS INTRAEPITHELIAL [...] Recently Relevant to Health Maintenance Care Teams Washing Machine Operator Relationship Specialty Start Date End Date Miller Villalpando MD [address] [place] [address] PCP - General Internal Medicine 10/14/20
--- OUTSIDE RECORDS SUMMARY | 2024-12-13 08:57 | XMS_ITS | Encounter Summary ---
Author Organization [facility] Address [address] [place] [address] Care Team Providers Care Compliance Clerk Name Role Phone Celio Marmolejo MD Primary Care Provider [phone] Miller Villalpando Primary Care Provider Unavailabl e Reason for Visit * Reason Onset Date Comments Provider Call Back 08/30/2017 Encounter Details Date Type Department Care Team Description 08/30/2017 Telephone Podiatry - [place] [address] [place] [address] Ghulam Byrd DPM Provider Call Back Social [...] on filedocumented in this encounter Care Teams Compliance Clerk Relationship Specialty Start Date End Date Celio Marmolejo MD [address] [place] [address] PCP - General Internal Medicine 08/31/16 10/13/20 Miller Villalpando [address] [place] [address] PCP - General Internal Medicine 10/14/20 documented as of this encounter
== END 2024-12-13 09:24 | disposition home or self-care (01) ==
LOC: HO.HPS 08:42
PROVIDERS: PCP Internal Medicine; Visit Provider Hospitalist
DX: J43.2 Centrilobular emphysema (principal); R91.8 Other nonspecific abnormal finding of lung field; G47.33 Obstructive sleep apnea (adult) (pediatric); J44.9 Chronic obstructive pulmonary disease, unspecified
CPT/HCPCS: 99214; G2211

== ENCOUNTER → 2024-12-13 08:41 | Outpatient (BNVA) | payer MEDICARE, MEDICAID, SELFPAY | PROVIDERS: PCP Internal Medicine; Visit Provider Hospitalist | DX: R06.02 Shortness of breath (principal); J43.2 Centrilobular emphysema; R91.8 Other nonspecific abnormal finding of lung field; G47.33 Obstructive sleep apnea (adult) (pediatric) | CPT/HCPCS: 99212 ==

== ENCOUNTER → 2024-12-29 09:18 | Outpatient (REF) | payer MEDICARE, MEDICAID, SELFPAY ==
--- NOTE | 2024-12-29 09:23 | ECG_ITS ---
Test Reason : copd Blood Pressure : */* mmHG Vent. Rate : 75 BPM Atrial Rate : 75 BPM P-R Int : 144 ms QRS Dur : 80 ms QT Int : 412 ms P-R-T Axes : 73 47 73 degrees QTcB Int : 460 ms Normal sinus rhythm Possible Left atrial enlargement Borderline ECG When compared with ECG of 03-Jul-2024 10:06, No significant change was found Referred By: Diego Hartley Electronically Signed By: RIDGE MCCULLOUGH
[2024-12-29 09:47] LABS: MANUAL DIFF FLAG NO
[2024-12-29 09:51] LABS: VBG HCO3 26 mmol/L (22-26); VBG O2 % Saturation 48.0 %
[2024-12-29 09:52] LABS: Venous Blood Gas Refer to POC result
--- OUTSIDE RECORDS SUMMARY | 2024-12-29 10:08 | XMS_ITS | Encounter Summary ---
Author Organization [facility] Address [address] [place] [address] Care Team Providers Care Separations Scientist Name Role Phone Celio Marmolejo MD Primary Care Provider [phone] Miller Villalpando Primary Care Provider Unavailabl e Encounter Details Date Type Department Care Team Description 08/15/2019 Renal Dietitian Report Medical Records [address] [place] [address] Diego Hartley MD Social History Tobacco Use [...] on filedocumented in this encounter Care Teams Separations Scientist Relationship Specialty Start Date End Date Celio Marmloejo MD [address] [place] [address] PCP - General Internal Medicine 08/31/16 10/13/20 Miller Villalpando [address] [place] [address] PCP - General Internal Medicine 10/14/20 documented as of this encounter
--- OUTSIDE RECORDS SUMMARY | 2024-12-29 10:08 | XMS_ITS | Encounter Summary ---
Author Organization [facility] Address [address] [place] [address] Care Team Providers Care Rn Womens Health Name Role Phone Celio Marmolejo MD Primary Care Provider +1 -[phone] Miller Villalpando Primary Care Provider Unavailabl e Encounter Details Date Type Department Care Team Description 10/18/2017 Business Doc Medical Records [address] [place] [id number] Abstract, Provider Social History Tobacco Use Types [...] filedocumented in this encounter Care Teams Rn Womens Health Relationship Specialty Start Date End Date Celio Marmolejo MD [address] [place] [address] PCP - General Internal Medicine 08/31/16 10/13/20 Miller Villalpando [address] [place] [address] PCP - General Internal Medicine 10/14/20 documented as of this encounter
--- OUTSIDE RECORDS SUMMARY | 2024-12-29 10:08 | XMS_ITS | Encounter Summary ---
Author Organization [facility] Address [address] [place] [address] Care Team Providers Care Civil Rights Representative Name Role Phone Celio Marmolejo MD Primary Care Provider +1 -[phone] Miller Villalpando Primary Care Provider Unavailabl e Reason for Visit * Reason Onset Date Comments Infiltrates 11/08/2017 [email or web address] Encounter Details Date Type Department Care Team Description 11/08/2017 Telephone Pulmonology - [address] [place] [address] Diego Hartley MD Infiltrates (pnuemonia [...] go to the ER.FYI.she will go to [facility] ED. * Telephone Encounter - Gabriela Holland - 11/08/2017 9:43 AM EDT [id number] Patient is calling in due to double [...] filedocumented in this encounter Care Teams Civil Rights Representative Relationship Specialty Start Date End Date Celio Marmolejo MD [address] [place] [address] PCP - General Internal Medicine 08/31/16 10/13/20 Miller Villalpando [address] [place] [address] PCP - General Internal Medicine 10/14/20 documented as of this encounter
--- OUTSIDE RECORDS SUMMARY | 2024-12-29 10:08 | XMS_ITS | Encounter Summary ---
Author Organization [facility] Address [address] [place] [address] Care Team Providers Care Process Trainer Name Role Phone Miller Villalpando Primary Care Provider Unavailabl e Reason for Visit * Reason Onset Date Comments Transfer Records 09/17/2021 Encounter Details Date Type Department Care Team Description 09/17/2021 Telephone OBGYN - [facility] [address] [place], [place] [id number] Cheri Gaxiola, Transfer Records Social History Tobacco [...] Release of information received by fax from [facility] Requesting Entire medical recordto be faxed to [phone]. Passed to records documented in this encounter Plan of Treatment Not on file documented as of this encounter Visit Diagnoses Not on filedocumented in this encounter Care Teams Process Trainer Relationship Specialty Start Date End Date Miller Villalpando PCP - General Internal Medicine 10/14/20 documented as of this encounter
--- OUTSIDE RECORDS SUMMARY | 2024-12-29 10:08 | XMS_ITS | Clinical Summary ---
Author Organization [facility] Address [address] [place] [address] Care Team Providers Care Intake Coordinator Name Role Phone Miller Villalpando MD Primary Care Provider [phone] Surgical History Surgery Date Site/Laterality Comments OTHER SURGICAL HISTORY PROCEDURE: ---- OTHER ----; COMMENT: right upper apex lung lobe removed APPENDECTOMY PROCEDURE: HISTORICAL APPENDECTOMY COLONOSCOPY 03/15/2014 Zeroogian PROCEDURE: HISTORICAL COLONOSCOPY; COMMENT: Two 8-10 mm adenomas; repeat in 3 yrs OTHER SURGICAL HISTORY 03/05/2014 PROCEDURE: SC ESOPHAGOSCOPY FLEXIBLE TRANSORAL DIAGNOSTIC; COMMENT: small HH; [...] high-fiber diet COLONOSCOPY W/ POLYPECTOMY 09/09/2017 PROCEDURE: SC COLSC FLX W/RMVL OF TUMOR POLYP LESION SNARE TQ; COMMENT: 12 small polyps, all adenomas; hemorrhoids. Repeat in 3 years under propofol OTHER SURGICAL HISTORY PROCEDURE: IMPLANT BREAST SILICONE/EQ TUBAL LIGATION PROCEDURE: HISTORICAL TUBAL LIGATION OTHER SURGICAL HISTORY PROCEDURE: SC REMOVAL OF LUNG PNEUMONECTOMY Medical History Medical History Date Comments Asthma 09/22/2016 DX:Asthma COPD (chronic obstructive pu lmonary disease) (CMS/HCC V24, CMS/HCC V28) 09/22/2016 DX:COPD (chronic o bstructive pulmonary disease) (HCC) Chronic bronchitis (CMS/HCC V24, CMS/HCC V28) 09/22/2016 DX:Chronic bronchitis (HCC) Bronchiectasis ([facility] V24, CMS/[facility] V28) 09/22/2016 DX:Bronchiectasis (HCC) Mitral [...] C and G neg. Colposcopy 04/18/2014 Seizure ([facility] V24, [facility] V28) 09/22/2016 DX:Seizure (HCC); COMMENT: [...] RESULTING AGENCY - 05/28/2020 10:55 AM EST [id number] THINPREP PAP, IMAGED: NEGATIVE FOR SQUAMOUS INTRAEPITHELIAL [...] Recently Relevant to Health Maintenance Care Teams Intake Coordinator Relationship Specialty Start Date End Date Miller Villalpando MD [address] [place] [address] PCP - General Internal Medicine 10/14/20
--- OUTSIDE RECORDS SUMMARY | 2024-12-29 10:08 | XMS_ITS | Encounter Summary ---
Author Organization [facility] Address [address] [place] [address] Care Team Providers Care Consulting Analyst Name Role Phone Celio Marmolejo MD Primary Care Provider [phone] [phone] Miller Villalpando Primary Care Provider Unavailabl e Reason for Visit * Reason Onset Date Comments TEST RESULTS 11/28/2018 Encounter Details Date Type Department Care Team Description 11/28/2018 Telephone Medicine/Pediatrics - [address] [phone] Pia Molina PA-C TEST RESULTS Social History [...] 12:50 PM EDT Left message to call [phone] * Telephone Encounter - Pia Molina PA-C [...] on filedocumented in this encounter Care Teams Consulting Analyst Relationship Specialty Start Date End Date Celio Marmolejo MD [address] [place] [address] PCP - General Internal Medicine 08/31/16 10/13/20 Miller Villalpando [address] [place] [address] PCP - General Internal Medicine 10/14/20 documented as of this encounter
--- OUTSIDE RECORDS SUMMARY | 2024-12-29 10:08 | XMS_ITS | Encounter Summary ---
Author Organization [facility] Address [address] [place] [address] Care Team Providers Care Motor Builder Winder Name Role Phone Celio Marmolejo MD Primary Care Provider [phone] [phone] Miller Villalpando Primary Care Provider Unavailabl e Encounter Details Date Type Department Care Team Description 06/22/2019 Refinery Operator Helper Crude Unit Report Medical Records [address] [place] [address] Diego Hartley MD Social History Tobacco Use [...] on filedocumented in this encounter Care Teams Motor Builder Winder Relationship Specialty Start Date End Date Celio Marmolejo MD [address] [place] [address] PCP - General Internal Medicine 08/31/16 10/13/20 Miller Villalpando [address] [place] [address] PCP - General Internal Medicine 10/14/20 documented as of this encounter
--- OUTSIDE RECORDS SUMMARY | 2024-12-29 10:08 | XMS_ITS | Encounter Summary ---
Author Organization [facility] Address [address] [place] [address] Care Team Providers Care Air Box Tester Name Role Phone Celio Marmolejo MD Primary Care Provider [phone] [phone] Miller Villalpando Primary Care Provider Unavailabl e Reason for Visit * Reason Onset Date Comments DME Request 09/01/2018 Encounter Details Date Type Department Care Team Description 09/01/2018 Telephone Pulmonology - [address] [place] [address] Diego Hartley MD DME Request [...] on filedocumented in this encounter Care Teams Air Box Tester Relationship Specialty Start Date End Date Celio Marmolejo MD [address] [place] [address] PCP - General Internal Medicine 08/31/16 10/13/20 Miller Villalpando [address] [place] [address] PCP - General Internal Medicine 10/14/20 documented as of this encounter
--- OUTSIDE RECORDS SUMMARY | 2024-12-29 10:08 | XMS_ITS | Encounter Summary ---
Author Organization [facility] Address [address] [place] [address] Care Team Providers Care Game Room Attendant Name Role Phone Celio Marmolejo MD Primary Care Provider [phone] [phone] Miller Villalpando Primary Care Provider Unavailabl e Reason for Visit * Reason Onset Date Comments Payroll Associate Feedback 12/20/2017 Neurology Encounter Details Date Type Department Care Team Description 12/20/2017 Telephone Adult Medicine [address] [address] Celio Marmolejo MD [address] [place] [address] Payroll Associate Feedback (Neurology) Social History Tobacco Use Types [...] this office .States she normally see's a MANAGER FINANCIAL REPORTING named Kary. * Telephone Encounter - Jabari [...] on filedocumented in this encounter Care Teams Game Room Attendant Relationship Specialty Start Date End Date Celio Marmolejo MD [address] [place] [address] PCP - General Internal Medicine 08/31/16 10/13/20 Miller Villalpando [address] [place] [address] PCP - General Internal Medicine 10/14/20 documented as of this encounter
--- OUTSIDE RECORDS SUMMARY | 2024-12-29 10:08 | XMS_ITS | Encounter Summary ---
Author Organization [facility] Address [address] [place] [address] Care Team Providers Care Lacing String Cutter Name Role Phone Celio Marmolejo MD Primary Care Provider [phone] [phone] Miller Villalpando Primary Care Provider Unavailabl e Reason for Visit * Reason Onset Date Comments APPOINTMENT 08/14/2020 PT CANCELLING Encounter Details Date Type Department Care Team Description 08/14/2020 Telephone Cardio PVC POC [address] [facility] [address] [place] [address] Sita Mahoney MD [address] [place] [address] APPOINTMENT (PT CANCELLING) Social History Tobacco Use [...] IN HTE DAY. PLEASE CALL HER AT [phone] OR [phone] TO RESCHEDULE documented in this encounter Plan of Treatment Not on file documented as of this encounter Visit Diagnoses Not on filedocumented in this encounter Care Teams Lacing String Cutter Relationship Specialty Start Date End Date Celio Marmolejo MD [address] [place] [address] PCP - General Internal Medicine 08/31/16 10/13/20 Miller Villalpando [address] [place] [address] PCP - General Internal Medicine 10/14/20 documented as of this encounter
--- OUTSIDE RECORDS SUMMARY | 2024-12-29 10:08 | XMS_ITS | Encounter Summary ---
Author Organization [facility] Address [address] [place] [address] Care Team Providers Care Straightener Hand Name Role Phone Celio Marmolejo MD Primary Care Provider +1 [phone] Miller Villalpando Primary Care Provider Unavailabl e Encounter Details Date Type Department Care Team Description 10/05/2017 Orders Only Podiatry - [place] [address] [place] [address] Ghulam Byrd DPM Osteomyelitis of right foot, [...] C-REACTIVE PROTEIN (10/08/2017 2:17 PM EDT) Pathologist [facility] CRP 0.27 0.08 - 0.80 mg/dL 10/08/2017 5:11 PM EDT [facility] 10/08/2017 2:17 PM EDT 10/08/2017 2:17 PM EDT Ghulam Byrd DPM LAB [facility] [address] [facility] * RBC SEDIMENTATION RATE, NON-AUTO (10/08/2017 2:17 PM EDT) Pathologist [facility] ESR 2 0 - 30 mm/hr 10/08/2017 6:56 PM EDT [facility] 10/08/2017 2:17 PM EDT 10/08/2017 2:17 PM EDT Ghulam FERRAROM LAB Performing Organization Address [facility] Co de Phone Number [address] * CREATININE, BLOOD ASSAY (10/08/2017 2:17 PM EDT) CREAT 1.0 0.7 - 1.5 mg/dL 10/08/2017 5:11 PM EDT [facility] GFR > 60 >60 10/08/2017 5:11 PM T [facility] Comment: If patient is -[place]aj[place], multiply result by 1.21 Chronic Kidney Disease: < 60 ml/min/1.73 square meters Kidney Failure: < 15 ml/min/1.73 square meters 10/08/2017 2:17 PM EDT 10/08/2017 2:17 PM EDT Ghluam FERRAROM LAB Performing Organization Address [facility] Phone Number [address] * (ABNORMAL) CBC (AUTO DIFF PLATELET) (10/08/2017 2:17 PM EDT) WBC 7.0 4.8 - 10.8 x10-3 10/08/2017 4:19 PM EDT [facility] RBC 4.4 3.8 - 4.8 x10-6 10/08/2017 4:19 PM EDT [facility] HGB 14.5 11.5 - 16.0 g/dl 10/08/2017 4:19 PM EDT [facility] HCT 44.1 35 - 47 % 10/08/2017 4:19 PM EDT [facility] MCV 99.8(H) 79 - 98 fl 10/08/2017 4:19 PM EDT [facility] MCH 32.8(H) 27 - 32 pg 10/08/2017 4:[address] [facility] MCHC 32.9 32 - 37 g/dl 10/08/2017 4:[address] [facility] RDW 13.8 11 - 15 % 10/08/2017 4:[address] [facility] PLT COUNT 313 130 - 400 x10-3 10/08/2017 4:[address] [facility] MEAN PLATELET VOLUME 9.8 [...] 12 % 10/08/2017 4:[address] [facility] EOS % 2.0 0 - 5 % 10/08/2017 4:[address] [facility] BASO % 0.7 0 - 2 % 10/08/2017 4:[address] [facility] 10/08/2017 2:17 PM EDT 10/08/2017 2:17 PM EDT Ghulam Byrd DPM LAB Performing Organization Address City/State/[facility] Co de Phone Number [facility] [address] [facility] * X-RAY EXAM OF FOOT, [...] Primary documented in this encounter Care Teams Straightener Hand Relationship Specialty Start Date End Date Celio Marmolejo MD [address] [place] [address] PCP - General Internal Medicine 08/31/16 10/13/20 Miller Villalpando [address] [place] [address] PCP - General Internal Medicine 10/14/20 documented as of this encounter
--- OUTSIDE RECORDS SUMMARY | 2024-12-29 10:08 | XMS_ITS | Clinical Summary ---
Author Organization [facility] Address [address] [facility] [place] [address] Care Team Providers Care Still Tender Name Role Phone Miller Villalpando Primary Care [...] Seizure 09/22/2016 Overview: Neurology (01/28/18): after reviewing [facility] notes, will cosnider AED. Cont amitriptyline [...] 80 11/01/2020 2:01 PM EDT Temperature 36.9 C (98.5 F) 11/26/2018 11:15 AM EDT Respiratory Rate 22 10/27/2018 1:12 PM EDT [...] (External Completion), Additional history exists INFLUENZA (#1) 2025 02/02/2020, 1006/2019, 05/07/2019, Additional history exists CHOLESTEROL SCREENING 07/25/2025 07/25/2020 , 05/17/2019, 12/08/2016 DTAP/TDAP/TD (2 - Td or Tdap) 04/01/2027 04/01/2017 PNEUMOCOCCAL VACCINE FOR HIG H RISK PATIENTS (#2) 2031 03/12/2015 HEPATITIS C SCREENING Completed 11/25/2017, 017 Care Teams Still Tender Relationship Specialty Start Date End Date Miller Villalpando PCP - General Internal Medicine 10/14/20
--- OUTSIDE RECORDS SUMMARY | 2024-12-29 10:08 | XMS_ITS | Encounter Summary ---
Author Organization [facility] Address [address] [place] [address] Care Team Providers Care Ham Curer Name Role Phone Celio Marmolejo MD Primary Care Provider +1 -[phone] Miller Villalpando Primary Care Provider Unavailabl e Encounter Details Date Type Department Care Team Description 09/15/2017 Orders Only Pulmonology - [address] [place] [address] Mary Ann Ratliff NP Social [...] on filedocumented in this encounter Care Teams Ham Curer Relationship Specialty Start Date End Date eClio Marmolejo MD [address] [place] [address] PCP - General Internal Medicine 08/31/16 10/13/20 Miller Villalpando [address] [place] [address] PCP - General Internal Medicine 10/14/20 documented as of this encounter
--- OUTSIDE RECORDS SUMMARY | 2024-12-29 10:08 | XMS_ITS | Encounter Summary ---
Author Organization [facility] Address [address] [place] [address] Care Team Providers Care New Client Banking Services Clerk Name Role Phone Celio Marmolejo MD Primary Care Provider +1 [phone] Miller Villalpando Primary Care Provider Unavailabl e Reason for Visit * Reason Onset Date Comments Faxed Order 10/01/2017 Encounter Details Date Type Department Care Team Description 10/01/2017 Telephone Podiatry - [place] [address] [place] [address] Ghulam Byrd DPM Faxed Order Social History [...] patient last Wednesday on the telephonefrom my [place] office * Telephone Encounter - Gayla Liz L.P.N. - 10/04/2017 2:19 PM EDT Message routed to Dr Byrd * Telephone Encounter - Adriana Fleder - 10/01/2017 11:27 AM EDT Caller requesting [...] xray of her foot. Pt requesting new shipping order clerk offered to speak with the nurse for assistance: YES Response: Patient offered to speak with nurse for assistance and patient agreed. Message forwarded to nurse. documented in this encounter Plan of Treatment Not on file documented as of this encounter Visit Diagnoses Not on filedocumented in this encounter Care Teams New Client Banking Services Clerk Relationship Specialty Start Date End Date Celio Marmolejo MD [address] [place] [address] PCP - General Internal Medicine 08/31/16 10/13/20 Miller Villalpando [address] [place] [address] PCP - General Internal Medicine 10/14/20 documented as of this encounter
--- OUTSIDE RECORDS SUMMARY | 2024-12-29 10:08 | XMS_ITS | Encounter Summary ---
Author Organization [facility] Address [address] [place] [address] Care Team Providers Care Shear Grinder Operator Helper Name Role Phone Celio Marmolejo MD Primary Care Provider +1 [phone] Miller Villalpando Primary Care Provider Unavailabl e Encounter Details Date Type Department Care Team Description 12/08/2016 [place] Machine Operator Report Medical Records [address] [place] [address] Diego Hartley MD Social History Tobacco Use [...] on filedocumented in this encounter Care Teams Shear Grinder Operator Helper Relationship Specialty Start Date End Date Celio Marmolejo MD [address] [place] [address] PCP - General Internal Medicine 08/31/16 10/13/20 Miller Villalpando [address] [place] [address] PCP - General Internal Medicine 10/14/20 documented as of this encounter
--- OUTSIDE RECORDS SUMMARY | 2024-12-29 10:08 | XMS_ITS | Encounter Summary ---
Author Organization [facility] Address [address] [place] [address] Care Team Providers Care Cloth Tester Name Role Phone Celio Marmolejo MD Primary Care Provider +1 [phone] Miller Villalpando Primary Care Provider Unavailabl e Encounter Details Date Type Department Care Team Description 10/05/2019 Car Stower Report Medical Records [address] [place] [address] Diego Hartley MD Social History Tobacco Use [...] on filedocumented in this encounter Care Teams Cloth Tester Relationship Specialty Start Date End Date Celio Marmolejo MD [address] [place] [address] PCP - General Internal Medicine 08/31/16 10/13/20 Miller Villalpando [address] [place] [address] PCP - General Internal Medicine 10/14/20 documented as of this encounter
--- OUTSIDE RECORDS SUMMARY | 2024-12-29 10:08 | XMS_ITS | Encounter Summary ---
Author Organization [facility] Address [address] [place] [address] Care Team Providers Care Metal Engraver Name Role Phone Celio Marmolejo MD Primary Care Provider +1 -[phone] Miller Villalpando Primary Care Provider Unavailabl e Encounter Details Date Type Department Care Team Description 05/11/2017 Orders Only Adult Medicine [address] [phone] Celio Marmolejo MD [address] [place] [address] Preoperative examination; Screening for deficiency anemia; intermediate project manager current use of anticoagulant therapy Social History [...] NEGATIVE <=TRACE mg/dL 05/25/2017 2:38 PM EST [facility] GLUCOSE, URINE (UA) NEGATIVE NEGATIVE mg/dL 05/25/2017 2:38 PM [facility] KETONE, URINE NEGATIVE NEGATIVE mg/dL 05/25/2017 2:38 PM [facility] BILIRUBIN URINE NEGATIVE NEGATIVE 05/25/2017 2:38 PM [facility] UROBILINOGEN, URINE 0.2 0.2 - 1.0 E.U./dL 05/25/2017 2:38 PM [facility] BLOOD, URINE NEGATIVE NEGATIVE 05/25/2017 2:38 PM [facility] NITRITE,URINE NEGATIVE NEGATIVE 05/25/2017 2:38 PM [facility] LEUKOCYTE ESTERASE, URINE NEGATIVE NEGATIVE 05/25/2017 2:38 PM [facility] RBC-Urine NONE 0 - 4 /hpf 05/25/2017 4:03 PM [facility] WBC, URINE NONE 0 - 4 /hpf 05/25/2017 4:03 PM [facility] 05/25/2017 10:1 5 AM EST 05/25/2017 10:16 AM EST Celio Marmolejo MD LAB Performing Organization Address [facility] [[email or web address]] Co de Phone Number [address] * THROMBOPLASTIN TIME, PARTIAL (05/18/2017 1:54 PM EST) PTT 32.6 20.6 - 33.6 SEC 05/18/2017 5:31 PM [facility] Comment: Please note adjusted APTT (sec) reference range effective 2015. 05/18/2017 1:54 PM EST 05/18/2017 1:54 PM EST Celio Marmolejo MD LAB Performing Organization Address [facility] [[email or web address]] Co de Phone Number [address] * PROTHROMBIN TIME (05/18/2017 1:54 PM EST) PT 12.0 11.6 - 15.6 SEC 05/18/2017 4:55 PM [facility] Comment: Please note adjusted PT(sec)normal reference range effective 15. INR 0.90 05/18/2017 4:55 PM EST [facility] 05/18/2017 1:54 PM EST 05/18/2017 1:54 PM EST Celio Marmolejo MD LAB [facility] [address] [facility] * BASIC METABOLIC PANEL (05/18/2017 1:54 PM EST) [facility] GLUCOSE 78 70 - 100 mg/dL 05/18/2017 4:[address] [facility] Comment: Reference range applicable to fasting specimens only Based on recommendations from the ADA and AACE, the fasting glucose reference range has been changed to 70-100 mg/dL. This change is effective September 16, 2009 BUN 7 5 - 25 mg/dL 05/18/2017 4:[address] [facility] CREAT 1.0 0.7 - 1.5 mg/dL 05/18/2017 4:59 PM EST [facility] GFR > 60 >60 05/18/2017 4:59 PM EST [facility] Comment: If patient is -Beninese, multiply result by 1.21 Chronic Kidney Disease: < 60 ml/min/1.73 square meters Kidney Failure: < 15 ml/min/1.73 square meters Sodium 138 133 - 145 mEq/L 05/18/2017 4:[address] [facility] Potassium 4.5 3.5 - 5.5 mEq/L 05/18/2017 4:[address] [facility] Chloride 98 96 - 108 mEq/L 05/18/2017 4:[address] [facility] CO2 29.2 21.0 - 32.0 mEq/L 05/18/2017 4:59 PM EST [facility] CALCIUM 9.3 8.5 - 10.5 mg/dL 05/18/2017 4:[address] [facility] 05/18/2017 1:54 PM EST 05/18/2017 1:54 PM EST Celio Marmolejo MD LAB [facility] [address] [facility] * (ABNORMAL) CBC (AUTO DIFF PLATELET) (05/18/2017 [...] Celio Marmolejo MD LAB Performing Organization Address City/State/[facility] [[email or web address]] Co de Phone Number [facility] [address] [place] [address] documented in this encounter Visit Diagnoses Diagnosis Preoperative examination Preoperative examination, unspecified Screening for deficiency anemia Screening for other and unspecified deficiency anemia shelter current use of anticoagulant therapy documented in this encounter Care Teams Metal Engraver Relationship Specialty Start Date End Date Celio Marmolejo MD [address] [place] [address] PCP - General Internal Medicine 08/31/16 10/13/20 Miller Villalpando [address] [place] [address] PCP - General Internal Medicine 10/14/20 documented as of this encounter
--- OUTSIDE RECORDS SUMMARY | 2024-12-29 10:08 | XMS_ITS | Encounter Summary ---
Author Organization [facility] Address [address] [place] [address] Care Team Providers Care Loan Coordinator Name Role Phone Celio Marmolejo MD Primary Care Provider +1 -[phone] Miller Villalpando Primary Care Provider Unavailabl e Reason for Visit * Reason Onset Date Comments Pre Op Visit 05/14/2017 Encounter Details Date Type Department Care Team Description 05/14/2017 Telephone Adult Medicine [address] [address] Celio Marmolejo MD [address] [place] [address] Pre Op Visit Social History Tobacco Use [...] AM EST DR. Byrd works at [employer] * Telephone Encounter - Mary Ann Luis L.P.N. - 05/20/2017 9:[address] Byrd is not in this general surg office in [address] [place] [address] * Telephone Encounter - Estefanía Humphries M.A. - 05/14/2017 3:22 PM EST [facility]. Thank you * Telephone Encounter - Haylee Felder - 05/14/2017 3:19 PM EST Date of surgery:06/18/17 What surgery is patient having (gall bladder, cataract, appendix, etc...)?: Right foot surgery Surgeon's name: DR. Ghulam Byrd Office phone number of surgeon: [phone] Fax # for surgeons office: NA Where is surgery being performed? [facility] Admitting Diagnosis/problem for surgery: fracture PCP: Celio Marmolejo Did you verify that the insurance below is correct? YES Patients insurance: [place] / [place]: [place] / Product Type: MEDICARE [id number] documented in this encounter Plan of Treatment Not on file documented as of this encounter Visit Diagnoses Not on filedocumented in this encounter Care Teams Loan Coordinator Relationship Specialty Start Date End Date Celio Marmolejo MD [address] [place] [address] PCP - General Internal Medicine 08/31/16 10/13/20 Miller Villalpando [address] [place] [address] PCP - General Internal Medicine 10/14/20 documented as of this encounter
--- OUTSIDE RECORDS SUMMARY | 2024-12-29 10:08 | XMS_ITS | Encounter Summary ---
Author Organization [facility] Address [address] [place] [address] Care Team Providers Care Front End Mechanic Name Role Phone Celio Marmolejo MD Primary Care Provider +1 -[phone] Miller Villalpando Primary Care Provider Unavailabl e Reason for Visit * Reason Comments E-prescribe Rx Request Encounter Details Date Type Department Care Team Description 03/02/2019 Refill Pulmonology - [place] [address] [facility] [address] [place] [phone] Dylon Dotson MD [address] [place] [phone] E-prescribe Rx Request Social History Tobacco Use [...] (HCC) documented in this encounter Care Teams Front End Mechanic Relationship Specialty Start Date End Date Celio Marmolejo MD [address] [place] [address] PCP - General Internal Medicine 08/31/16 10/13/20 Miller Villalpando [address] [place] [address] PCP - General Internal Medicine 10/14/20 documented as of this encounter
--- OUTSIDE RECORDS SUMMARY | 2024-12-29 10:08 | XMS_ITS | Encounter Summary ---
Author Organization [facility] Address [address] [place] [address] Care Team Providers Care Assembler Dc Field Yoke Name Role Phone Celio Marmolejo MD Primary Care Provider +1 -[phone] Miller Villalpando Primary Care Provider Unavailabl e Reason for Visit * Reason Comments E-prescribe Rx Request Encounter Details Date Type Department Care Team Description 12/03/2017 Refill Pulmonology - [place] [address] [facility] [address] [place] [address] Dylon Dotson MD [address] [place] [address] E-prescribe Rx Request Social History [...] NO Patients current insurance carrier is: Payor: [email or web address] / [place] / Product Type: MEDICARE [id number] documented in this encounter Plan of Treatment Not on file documented as of this encounter Visit Diagnoses Diagnosis Chronic obstructive pulmonary disease, unspecified COPD type (HCC) documented in this encounter Care Teams Assembler Dc Field Yoke Relationship Specialty Start Date End Date Celio Marmolejo MD [address] [place] [address] PCP - General Internal Medicine 08/31/16 10/13/20 Miller Villalpando [address] [place] [address] PCP - General Internal Medicine 10/14/20 documented as of this encounter
--- OUTSIDE RECORDS SUMMARY | 2024-12-29 10:08 | XMS_ITS | Encounter Summary ---
Author Organization [facility] Address [address] [place] [address] Care Team Providers Care Electrotype Finisher Name Role Phone Celio Marmolejo MD Primary Care Provider +1 -[phone] Miller Villalpando Primary Care Provider Unavailabl e Encounter Details Date Type Department Care Team Description 08/22/2020 Administrative Medical Director Report Medical Records [address] [place] [address] Carla Sheppard Social History Tobacco Use Types [...] on filedocumented in this encounter Care Teams Electrotype Finisher Relationship Specialty Start Date End Date Celio Marmolejo MD [address] [place] [address] PCP - General Internal Medicine 08/31/16 10/13/20 Miller Villalpando [address] [place] [address] PCP - General Internal Medicine 10/14/20 documented as of this encounter
--- OUTSIDE RECORDS SUMMARY | 2024-12-29 10:08 | XMS_ITS | Encounter Summary ---
Author Organization [facility] Address [address] [place] [address] Care Team Providers Care Load Manager Name Role Phone Celio Marmolejo MD Primary Care Provider +1 -[phone] Miller Villalpando Primary Care Provider Unavailabl e Encounter Details Date Type Department Care Team Description 04/18/2014 Hospital Medical Records [address] [place] [address] Alisia Ordonez MD Social History Tobacco Use [...] on filedocumented in this encounter Care Teams Load Manager Relationship Specialty Start Date End Date Celio Marmolejo MD [address] [place], [place] [phone] PCP - General Internal Medicine 08/31/16 10/13/20 Miller Villalpando [address] [place] [address] PCP - General Internal Medicine 10/14/20 documented as of this encounter
--- OUTSIDE RECORDS SUMMARY | 2024-12-29 10:08 | XMS_ITS | Encounter Summary ---
Author Organization [facility] Address [address] [place] [address] Care Team Providers Care Rip And Groove Machine Operator Name Role Phone Celio Marmolejo MD Primary Care Provider +1 -[phone] Miller Villalpando Primary Care Provider Unavailabl e Reason for Visit * Reason Onset Date Comments PT-1 11/06/2016 Encounter Details Date Type Department Care Team Description 11/06/2016 Telephone Adult Medicine [address] [address] Celio Marmolejo MD [address] [place] [address] PT-1 Social History Tobacco Use Types Packs/Day [...] on filedocumented in this encounter Care Teams Rip And Groove Machine Operator Relationship Specialty Start Date End Date Celio Marmolejo MD [address] [place] [address] PCP - General Internal Medicine 08/31/16 10/13/20 Miller Villalpando [address] [place] [address] PCP - General Internal Medicine 10/14/20 documented as of this encounter
--- OUTSIDE RECORDS SUMMARY | 2024-12-29 10:08 | XMS_ITS | Encounter Summary ---
Author Organization [facility] Address [address] [place] [address] Care Team Providers Care Livestock Showman Name Role Phone Celio Marmolejo MD Primary Care Provider +1 -[phone] Miller Villalpando Primary Care Provider Unavailabl e Encounter Details Date Type Department Care Team Description 01/13/2018 Orders Only Podiatry - [place] [address] [place] [address] Ghulam Byrd DPM Other chronic osteomyelitis of [...] - 0.80 mg/dL 01/18/2018 3:30 PM EDT [facility] 01/18/2018 1:35 PM EDT 01/18/2018 1:35 PM EDT Ghulam Byrd DPM LAB [facility] [address] [place] [address] * RBC SEDIMENTATION RATE, NON-AUTO (01/18/2018 1:35 PM EDT) ESR 10 0 - 30 mm/hr 01/18/2018 3:08 PM EDT [facility] 01/18/2018 1:35 PM EDT 01/18/2018 1:35 PM EDT Ghulam Byrd DPM LAB [facility] [address] [facility] * X-RAY EXAM OF FOOT, COMPLETE [...] (HCC) documented in this encounter Care Teams Livestock Showman Relationship Specialty Start Date End Date Celio Marmolejo MD [address] [place] [address] PCP - General Internal Medicine 08/31/16 10/13/20 Miller Villalpando [address] [place] [address] PCP - General Internal Medicine 10/14/20 documented as of this encounter
--- OUTSIDE RECORDS SUMMARY | 2024-12-29 10:08 | XMS_ITS | Encounter Summary ---
Author Organization [facility] Address [address] [place] [address] Care Team Providers Care Textbook Associate Name Role Phone Celio Marmolejo MD Primary Care Provider +1 -[phone] Miller Villalpando Primary Care Provider Unavailabl e Encounter Details Date Type Department Care Team Description 12/21/2019 Physician Assistant Certified Report Medical Records [address] [place] [address] Adali Lantigua MD Social History Tobacco Use [...] Date End Date Celio Marmolejo MD [address] [place] [address] PCP - General Internal Medicine 08/31/16 10/13/20 Miller Villalpando [address] [place] [address] PCP - General Internal Medicine 10/14/20 documented as of this encounter
--- OUTSIDE RECORDS SUMMARY | 2024-12-29 10:08 | XMS_ITS | Encounter Summary ---
Author Organization [facility] Address [address] [place] [address] Care Team Providers Care Summer School Coordinator Name Role Phone Celio Marmolejo MD Primary Care Provider +1 -[phone] Miller Villalpando Primary Care Provider Unavailabl e Reason for Visit * Reason Onset Date Comments Testing 11/22/2019 [facility] Encounter Details Date Type Department Care Team Description 11/22/2019 Telephone Medicine/Pediatrics - [address] [address] Pretty Salazar NP [address] [place] [address] Testing ([facility]) Social History Tobacco Use Types Packs/Day [...] verbally understands Printed and placed in patient machine operator picker * Telephone Encounter - Pretty Salazar NP - 11/27/2019 9:02 AM EDT Please print AND STAMP letter from today for patient to machine operator picker in [place]. She is traveling tomorrow AM. * Telephone [...] 11/22/2019 11:15 AM EDT Call placed to [facility] Covid Testing facility. Patient info confirmed: Appt scheduled 11-24-19 at 10:35am at [address] [place] [address] Orders hand faxed to [phone] documented in this encounter Plan of Treatment Not on file documented as of this encounter Visit Diagnoses Not on filedocumented in this encounter Care Teams Summer School Coordinator Relationship Specialty Start Date End Date Celio Marmolejo MD [address] [place] [address] PCP - General Internal Medicine 08/31/16 10/13/20 Miller Villalpando [address] [place] [address] PCP - General Internal Medicine 10/14/20 documented as of this encounter
--- OUTSIDE RECORDS SUMMARY | 2024-12-29 10:08 | XMS_ITS | Encounter Summary ---
Author Organization [facility] Address [address] [place] [address] Care Team Providers Care Program Professional Name Role Phone Celio Marmolejo MD Primary Care Provider +1 -[phone] Miller Villalpando Primary Care Provider Unavailabl e Reason for Visit * Reason Onset Date Comments Jill Special Procedure Gi 08/31/2017 Encounter Details Date Type Department Care Team Description 08/31/2017 Telephone Gastroenterology - [address] [address] Morro Serna MD [facility] Social History Tobacco Use Types Packs/Day Years Used Date Smoking Tobacco: Former Cigarettes 1 Smokeless Tobacco: Never Comments:Quit x one month ag o Alcohol Use Standard Drinks/Week Comments Yes 0 (1 standard drink = 0.6 oz pur e alcohol) rarely Sex Assigned at Date Recorded Not on file documented as of this encounter Miscellaneous Notes * Telephone Encounter - Morro Serna MD - 09/15/2017 11:18 AM EDT Repeat colonoscopy in 3 years under propofol. * Telephone Encounter - Shiloh Riggs - 09/15/2017 9:59 AM EDT Colonoscopy/pathology report placed in Dr Vines's incoming. * Telephone Encounter - Amanda Duke - 09/08/2017 10:03 AM EDT was received. * Telephone Encounter - Shiloh Oneil - 08/31/2017 9:44 AM EDT Patient has been scheduled for a colonoscopy at [facility] , 09/09/17 at 1:[address] pm [address] time [address] Dr Miller. Booking sheet, snap shot, demographics, and insurance faxed to [employer]. Case # pending. documented in this encounter Plan of Treatment Not on file documented as of this encounter Visit Diagnoses Not on filedocumented in this encounter Care Teams Program Professional Relationship Specialty Start Date End Date Celio Marmolejo MD [address] [place] [address] PCP - General Internal Medicine 08/31/16 10/13/20 Miller Villalpando [address] [place] [address] PCP - General Internal Medicine 10/14/20 documented as of this encounter
--- OUTSIDE RECORDS SUMMARY | 2024-12-29 10:08 | XMS_ITS | Encounter Summary ---
Author Organization [facility] Address [address] [place] [address] Care Team Providers Care Microsoft Exchange Administrator Name Role Phone Celio Marmolejo MD Primary Care Provider +1 -[phone] Miller Villalpando Primary Care Provider Unavailabl e Reason for Visit * Reason Comments E-prescribe Rx Request Encounter Details Date Type Department Care Team Description 06/10/2018 Refill Pulmonology - [address] [place] [address] Diego Hartely MD E-prescribe Rx Request Social History Tobacco [...] insurance carrier is: [place] / Plan: MEDICARE-Mobile Pulse / Product Type: MEDICARE [id number] documented in this encounter Plan of Treatment Not on file documented as of this encounter Visit Diagnoses Diagnosis Chronic obstructive pulmonary disease, unspecified COPD type (HCC) documented in this encounter Care Teams Microsoft Exchange Administrator Relationship Specialty Start Date End Date Celio Marmolejo MD [address] [place] [address] PCP - General Internal Medicine 08/31/16 10/13/20 Miller Villalpando [address] [place] [address] PCP - General Internal Medicine 10/14/20 documented as of this encounter
--- OUTSIDE RECORDS SUMMARY | 2024-12-29 10:08 | XMS_ITS | Clinical Summary ---
Author Organization [facility] Address [address] [place] [address] Care Team Providers Care Gericare Aide Teacher Name Role Phone Unavailable Primary Care Provider [...] fluoride, sodium, (SF 5000 PLUS) 1.1 % creaIndications:[place] in hypersensitivity Crystal twice daily with toothpaste then expectorate. Do not rinse.. 51 g 5 12/12/19 25 Active fluoride, sodium, (SF 5000 PLUS) 1.1 % creaIndications:Enam el caries Crystal twice daily with toothpaste then expectorate. Do not rinse. 51 g 3 01/23/20 22 025 Discontin ued(Cance lled) Active Problems No known active problems Encounters Date Type Department Care Team Description 12/11/2024 10:20 AM EDT Office Visit [facility] [place] [address] Mary Hogue DMD 12/01/2024 11:20 AM EDT Office Visit [facility] [place] [address] Jane Shelley 11/16/2024 1:00 PM EDT Office Visit [facility] [address] [place] [phone] Mary Hogue DMD from Last 3 Months [...] Description 06/19/2025 10:20 AM EST Office Visit [facility] [address] [place] [phone] Daniel Hammond RHD [address] [place] [address] Health Maintenance Due Date Last Done Comments [...] Diabetes Screening 07/26/2023 07/25/2020, 0 05/17/2019, 11/25/2017 [id number] ( - season) 2024 Alcohol and Drug Screen 05/03/2024 Depression Annual Screen 05/03/2024 Imm-Influenza (#1) 2025 02/02/2020, 03/16/2016 Dental Perio Charting 05/20/2025 05/18/2024 , 04/02/2023, 04/07/2022, Additional history exists Lipid Screening 07/25/2025 07/25/2020, 05/17/2019 Dental BW 12/03/2025 12/01/2024, 05/03, 04/02/2023, Additional history exists Dental Prophy 12/03/2025 12/01/2024, 05/03, 04/02/2023, Additional history exists Hypertension Screening (#1) 12/11/2025 Dental Examination 12/13/2025 12/11/2024, 0 05/18/2024, 04/02/2023, Additional history exists Dental FMX/Pano 01/23/2027 01/21/2022 Imm-DTaP/Tdap/Td (2 - Td or Tdap) 04/01/2027 017 Imm-Hepatitis B Completed 10/18/2017, 05/03, 04/01/2017 HIV Screening Completed 11/25/2017 Hepatitis C Screening Completed 11/25/2017 Cervical Ablation/Cold-Knife Conization Discontinued Cervical Cryotherapy Discontinued Colposcopy Discontinued Endometrial Biopsy Discontinued Excision/Leep Discontinued HPV Genotyping Discontinued Vaginal Pap Discontinued Vulvoscopy Discontinued Procedures Procedure Name Priority Date/Time Associated Diagnosis Comments PERIODIC ORAL EVALUATION ESTABLISHED PATIENT Routine 12/11/2024 10:20 AM EDT Caries CARIES RISK ASSESSMENT & DOC FINDING HIGH RISK Routine 12/11/2024 10:20 AM EDT Caries NUTRITIONAL COUNSELING CONTROL OF DENTAL DISEASE Routine 12/11/2024 10:20 AM EDT Caries ORAL HYGIENE INSTRUCTIONS Routine 12/11/2024 10:20 AM EDT Caries TOPICAL APPLICATION OF FLUORIDE VARNISH Routine 12/11/2024 10:20 AM EDT Caries INTRAORAL - PERIAPICAL FIRST RADIOGRAPHIC IMAGE Routine 12/11/2024 10:20 AM EDT Dentin hypersensitivity Caries CASE PRESENTATION SUBS DTL & EXTENSIVE TX PLN Routine 12/11/2024 10:20 AM EDT Caries 31 L(V) RESIN-BASED COMPOSITE - ONE SURFACE POSTERIOR Routine 12/11/2024 10:20 AM EDT Caries BITEWINGS - FOUR RADIOGRAPHIC IMAGES Routine 12/01/2024 11:20 AM EDT Chronic gingivitis, plaque induced Full ORAL HYGIENE INSTRUCTIONS Routine 12/01/2024 11:20 AM EDT Chronic gingivitis, plaque induced Full PROPHYLAXIS - ADULT Routine 025 11:20 AM EDT Chronic gingivitis, plaque induced 22 F(V) RESIN-BASED COMPOSITE ONE SURFACE ANTERIOR Routine 11/16/2024 1:00 PM EDT Cementum caries COMP PERIODONTAL EVALUATION - NEW/EST PATIENT Routine 05/18/2024 1:40 PM EST Caries of enamel (incipient) Encounter for dental examination Full INTRAORAL - COMP SERIES OF RADIOGRAPHIC IMAGES Routine 01/21/2022 1:00 PM EDT Gingivitis, chronic, plaque induced from Last 3 Months or Most Recently Relevant to Health Maintenance Insurance [employer]
--- OUTSIDE RECORDS SUMMARY | 2024-12-29 10:08 | XMS_ITS | Encounter Summary ---
Author Organization [facility] Address [address] [place] [address] Care Team Providers Care Visual Merchandising Coordinator Name Role Phone Celio Marmolejo MD Primary Care Provider +1 -[phone] Miller Villalpando Primary Care Provider Unavailabl e Encounter Details Date Type Department Care Team Description 09/21/2019 Firer Boiler Report Medical Records [address] [place] [address] Diego Hartley MD Social History Tobacco Use [...] on filedocumented in this encounter Care Teams Visual Merchandising Coordinator Relationship Specialty Start Date End Date Celio Marmolejo MD [address] [place] [address] PCP - General Internal Medicine 08/31/16 10/13/20 Miller Villalpando [address] [place] [address] PCP - General Internal Medicine 10/14/20 documented as of this encounter
--- OUTSIDE RECORDS SUMMARY | 2024-12-29 10:08 | XMS_ITS | Encounter Summary ---
Author Organization [facility] Address [address] [place] [address] Care Team Providers Care Residential Building Inspector Name Role Phone Celio Marmolejo MD Primary Care Provider +1 -[phone] Miller Villalpando Primary Care Provider Unavailabl e Reason for Visit * Reason Onset Date Comments Provider Call Back 08/30/2017 Encounter Details Date Type Department Care Team Description 08/30/2017 Telephone Podiatry - [place] [address] [place] [address] Ghulam Byrd DPM Provider Call Back Social [...] filedocumented in this encounter Care Teams Residential Building Inspector Relationship Specialty Start Date End Date Celio Marmolejo MD [address] [place] [address] PCP - General Internal Medicine 08/31/16 10/13/20 Miller Villalpando [address] [place] [address] PCP - General Internal Medicine 10/14/20 documented as of this encounter
--- OUTSIDE RECORDS SUMMARY | 2024-12-29 10:08 | XMS_ITS | Encounter Summary ---
Author Organization [facility] Address [address] [place] [address] Care Team Providers Care Camouflage Specialist Name Role Phone Celio Marmolejo MD Primary Care Provider +1 -[phone] Miller Villalpando Primary Care Provider Unavailabl e Encounter Details Date Type Department Care Team Description 07/16/2020 Loan Documents Closer Report Medical Records [address] [place] [address] Adali Lantigua MD Social History Tobacco Use [...] on filedocumented in this encounter Care Teams Camouflage Specialist Relationship Specialty Start Date End Date Celio Marmolejo MD [address] [place], [place] [phone] PCP - General Internal Medicine 08/31/16 10/13/20 Miller Villalpando [address] [place] [address] PCP - General Internal Medicine 10/14/20 documented as of this encounter
--- OUTSIDE RECORDS SUMMARY | 2024-12-29 10:08 | XMS_ITS | Encounter Summary ---
Author Organization [facility] Address [address] [place] [address] Care Team Providers Care Dinking Machine Operator Name Role Phone Celio Marmolejo MD Primary Care Provider +1 -[phone] Miller Villalpando Primary Care Provider Unavailabl e Encounter Details Date Type Department Care Team Description 01/28/2018 Tester Semiconductor Packages Report Medical Records [address] [place] [address] Michela Salazar Social History Tobacco Use Types [...] on filedocumented in this encounter Care Teams Dinking Machine Operator Relationship Specialty Start Date End Date Celio Marmolejo MD [address] [place] [address] PCP - General Internal Medicine 08/31/16 10/13/20 Miller Villalpando [address] [place] [address] PCP - General Internal Medicine 10/14/20 documented as of this encounter
--- OUTSIDE RECORDS SUMMARY | 2024-12-29 10:08 | XMS_ITS | Encounter Summary ---
Author Organization [facility] Address [address] [place] [address] Care Team Providers Care Electrolytic De Scaler Name Role Phone Celio Marmolejo MD Primary Care Provider +1 -[phone] Miller Villalpando Primary Care Provider Unavailabl e Reason for Visit * Reason Onset Date Comments Gynecological Problem 05/27/2020 Encounter Details Date Type Department Care Team Description 05/27/2020 Telephone OBGYN - [address] [address] Cheri Quesada DO Gynecological Problem Social History [...] has the patient had this problem? Pt???s TIRE TECHNICIAN provider: Cheri Quesada, DO Last menstrual period (LMP) or EDC (due date): N/A documented in this encounter Plan of Treatment Not on file documented as of this encounter Visit Diagnoses Not on filedocumented in this encounter Care Teams Electrolytic De Scaler Relationship Specialty Start Date End Date Celio Marmolejo MD [address] [place] [address] PCP - General Internal Medicine 08/31/16 10/13/20 Miller Villalpando [address] [place] [address] PCP - General Internal Medicine 10/14/20 documented as of this encounter
--- OUTSIDE RECORDS SUMMARY | 2024-12-29 10:08 | XMS_ITS | Encounter Summary ---
Author Organization [facility] Address [address] [place] [address] Care Team Providers Care Hand Braille Transcriber Name Role Phone Celio Marmolejo MD Primary Care Provider +1 -[phone] iMller Villalpando Primary Care Provider Unavailabl e Encounter Details Date Type Department Care Team Description 10/12/2018 Telephone Adult [address] [address] Celio Marmolejo MD [address] [place] [address] Social History Tobacco Use Types Packs/Day Years [...] on filedocumented in this encounter Care Teams Hand Braille Transcriber Relationship Specialty Start Date End Date Celio Marmolejo MD [address] [place] [address] PCP - General Internal Medicine 08/31/16 10/13/20 Miller Villalpando [address] [place] [address] PCP - General Internal Medicine 10/14/20 documented as of this encounter
--- OUTSIDE RECORDS SUMMARY | 2024-12-29 10:08 | XMS_ITS | Encounter Summary ---
Author Organization [facility] Address [address] [place] [address] Care Team Providers Care Army Ranger Name Role Phone Celio Marmolejo MD Primary Care Provider [phone] Miller Villalpando Primary Care Provider Unavailabl e Encounter Details Date Type Department Care Team Description 05/20/2017 Transfer Records Medical Records [address] [place] [address] Abstract, Provider Social History Tobacco Use Types [...] on filedocumented in this encounter Care Teams Army Ranger Relationship Specialty Start Date End Date Celio Marmolejo MD [address] [place] [address] PCP - General Internal Medicine 08/31/16 10/13/20 Miller Villalpando [address] [place] [address] PCP - General Internal Medicine 10/14/20 documented as of this encounter
--- OUTSIDE RECORDS SUMMARY | 2024-12-29 10:08 | XMS_ITS | Encounter Summary ---
Author Organization [facility] Address [address] [place] [address] Care Team Providers Care Engineer First Assistant Name Role Phone Celio Marmolejo MD Primary Care Provider [phone] [phone] Miller Villalpando Primary Care Provider Unavailabl e Encounter Details Date Type Department Care Team Description 05/29/2020 SCAN Medical Records [address] [place] [address] Abstract, Provider Social History Tobacco Use Types [...] on filedocumented in this encounter Care Teams Engineer First Assistant Relationship Specialty Start Date End Date Celio Marmolejo MD [address] [place] [address] PCP - General Internal Medicine 08/31/16 10/13/20 Miller Villalpando [address] [place] [address] PCP - General Internal Medicine 10/14/20 documented as of this encounter
--- OUTSIDE RECORDS SUMMARY | 2024-12-29 10:08 | XMS_ITS | Encounter Summary ---
Author Organization [facility] Address [address] [place] [address] Care Team Providers Care Forestry Aid Name Role Phone Celio Marmolejo MD Primary Care Provider [phone] [phone] Miller Villalpando Primary Care Provider Unavailabl e Encounter Details Date Type Department Care Team Description 06/18/2017 Hospital Medical Records [address] [place] [address] Ghulam Byrd, DPM Social History Tobacco Use [...] on filedocumented in this encounter Care Teams Forestry Aid Relationship Specialty Start Date End Date Celio Marmolejo MD [address] [place], [place] [id number] PCP - General Internal Medicine 08/31/16 10/13/20 Miller Villalpando [address] [place] [address] PCP - General Internal Medicine 10/14/20 documented as of this encounter
--- OUTSIDE RECORDS SUMMARY | 2024-12-29 10:08 | XMS_ITS | Encounter Summary ---
Author Organization [facility] Address [address] [place] [address] Care Team Providers Care Business Continuity Manager Name Role Phone Celio Marmolejo MD Primary Care Provider [phone] Miller Villalpando Primary Care Provider Unavailabl e Encounter Details Date Type Department Care Team Description 04/25/2020 Telephone Adult Medicine [address] [address] Celio Marmolejo MD [address] [place] [id number] Social History Tobacco Use Types Packs/Day Years [...] on filedocumented in this encounter Care Teams Business Continuity Manager Relationship Specialty Start Date End Date Celio Marmolejo MD [address] [place] [address] PCP - General Internal Medicine 08/31/16 10/13/20 Miller Villalpando [address] [place] [address] PCP - General Internal Medicine 10/14/20 documented as of this encounter
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
--- OUTSIDE RECORDS SUMMARY | 2024-12-29 10:08 | XMS_ITS | Encounter Summary ---
Author Organization [facility] Address [address] [place] [address] Care Team Providers Care Skilled Trades Teacher Name Role Phone Celio Marmolejo MD Primary Care Provider [phone] Miller Villalpando Primary Care Provider Unavailabl e Encounter Details Date Type Department Care Team Description 06/24/2017 Orders Only Medical Records [address] [place] [address] Ghulam Byrd DPM Social History Tobacco Use [...] on filedocumented in this encounter Care Teams Skilled Trades Teacher Relationship Specialty Start Date End Date Celio Marmolejo MD [address] [place] [address] PCP - General Internal Medicine 08/31/16 10/13/20 Miller Villalpando [address] [place] [address] PCP - General Internal Medicine 10/14/20 documented as of this encounter
--- OUTSIDE RECORDS SUMMARY | 2024-12-29 10:08 | XMS_ITS | Encounter Summary ---
Author Organization [facility] Address [address] [place] [address] Care Team Providers Care Billing Coordinator Name Role Phone Celio Marmolejo MD Primary Care Provider [phone] Miller Villalpando Primary Care Provider Unavailabl e Reason for Visit * Reason Onset Date Comments refill request 08/23/2019 Encounter Details Date Type Department Care Team Description 08/23/2019 Refill Adult Medicine - [address] [address] Celio Marmolejo MD [address] [place] [address] refill request Social History Tobacco Use Types [...] THE PATIENT'S LAST APPOINTMENT IN ADULT MEDICINE? [id number] WHEN WAS THE LAST TIME THE PATIENT SAW THEIR PCP? Same as above Does patient have an upcoming appointment? Yes [id number] (THE MEDICATION REQUESTED IS ON THE MED LIST ABOVE) All of the medications requested were on the CURRENT MEDS list Did you check the Pharmacy information above?: YES Patient wants: 90 -day supply Is this a mail order prescription request ? NO If the refill is from a FAXED refill request what is the RX # listed on the fax? [id number] Patients current insurance carrier is: [place] / [place] / Product Type: MEDICARE [id number] documented in this encounter Plan of Treatment Not on file documented as of this encounter Visit Diagnoses Not on filedocumented in this encounter Care Teams Billing Coordinator Relationship Specialty Start Date End Date Celio Marmolejo MD [address] [place] [address] PCP - General Internal Medicine 08/31/16 10/13/20 Miller Villalpando [address] [place] [address] PCP - General Internal Medicine 10/14/20 documented as of this encounter
[2024-12-29 10:37] LABS: Reticulocytes Absolute 0.037 X10*6/uL (0.026-0.095)
[2024-12-29 10:38] LABS: Hematocrit 37.2 % (37.0-47.0); Hemoglobin 12.3 g/dl (12.0-16.0); Imm Gran Abs Auto 0.01 X10*3/uL (0.00-0.03); Imm Gran Pct Auto 0.2 % (0.0-0.4); Lymphocytes Absolute Auto 1.0 X10*3/uL (1.2-4.9); Mean Corpuscular HGB Conc 33.1 g/dl (31.0-35.0); Mean Corpuscular Hemoglobin 32.3 pg (27.0-33.0); Mean Corpuscular Volume 97.6 fL (80.0-98.0); NRBC Abs Auto 0.000 X10*3/uL (0.0-0.012); NRBC Pct Auto 0.0 /100WBC (0.0-0.2); Platelet Count 265 X10*3/uL (160-400); Red Blood Count 3.81 X10*6/uL (4.20-5.50); White Blood Count 4.4 X10*3/uL (4.8-10.8)
[2024-12-29 11:25] LABS: Anion Gap 14 (12-20); Blood Urea Nitrogen 6 mg/dL (9-16); Calcium 10.6 mg/dL (8.4-10.2); Carbon Dioxide 26 mmol/L (22-29); Chloride 109 mmol/L (96-108); Estimated Glomerular Filt Rate 52; Iron 78 mcg/dL (30-160); Percent Iron Saturation 36 % (15-50); Potassium 3.7 mmol/L (3.3-5.1); Sodium 145 mmol/L (135-145); Total Iron Binding Capacity 215 mcg/dL (228-428); Unsaturated Iron Binding 137 ug/dL
[2024-12-29 11:32] LABS: Ferritin 79 ng/mL (10-250); Free T4 (Free Thyroxine) 1.08 ng/dL (0.71-1.85); Thyroid Stimulating Hormone 0.27 uIU/mL (0.32-4.0)
[2024-12-29 12:04] LABS: Appearance Urine Clear; Glucose Urine UA Negative (Negative); PH 5.5 (5.0-9.0); Specific Gravity - Urine <= 1.005 (1.005-1.025); UMIC TRIGGER UACC YES
[2024-12-29 12:15] LABS: Folate > 20.0 ng/mL (> or = 4.0); Vitamin B12 278 pg/mL (200-900)
[2024-12-29 12:23] LABS: UACC Culture Trigger YES
[2024-12-30 06:27] LABS: Rubeola IgG (Measles) 31.40 AU/mL
[2024-12-30 12:45] LABS: Theophylline 10.2
== END ==
LOC: HO.CARD 09:18
PROVIDERS: Absent Provider Hospitalist; PCP Internal Medicine; Visit Provider Internal Medicine
DX: J44.1 Chronic obstructive pulmonary disease with (acute) exacerbation (principal); R91.8 Other nonspecific abnormal finding of lung field; D64.9 Anemia, unspecified; Z02.0 Encounter for examination for admission to educational institution
CPT/HCPCS: 36415; 80048; 80198; 81001; 81003; 82607; 82728; 82746; 82803; 83540; 84439; 84443; 85025; 85045; 86735; 86762; 86765; 86787; 87086; 93005

== ENCOUNTER → 2024-12-29 09:23 | Outpatient (BNV) | payer MEDICARE, MEDICAID, SELFPAY | PROVIDERS: Absent Provider Hospitalist; PCP Internal Medicine; Visit Provider Internal Medicine | DX: J44.9 Chronic obstructive pulmonary disease, unspecified (principal) | CPT/HCPCS: 93010 ==

== ENCOUNTER 2025-02-06 08:25 | Outpatient (REF) | payer MEDICARE, MEDICAID, SELFPAY ==
[2025-02-06 09:37] LABS: MANUAL DIFF FLAG NO
[2025-02-06 10:36] LABS: Hematocrit 37.1 % (37.0-47.0); Hemoglobin 12.4 g/dl (12.0-16.0); Imm Gran Abs Auto 0.01 X10*3/uL (0.00-0.03); Imm Gran Pct Auto 0.2 % (0.0-0.4); Lymphocytes Absolute Auto 1.0 X10*3/uL (1.2-4.9); Mean Corpuscular HGB Conc 33.4 g/dl (31.0-35.0); Mean Corpuscular Hemoglobin 32.9 pg (27.0-33.0); Mean Corpuscular Volume 98.4 fL (80.0-98.0); NRBC Abs Auto 0.000 X10*3/uL (0.0-0.012); NRBC Pct Auto 0.0 /100WBC (0.0-0.2); Platelet Count 303 X10*3/uL (160-400); Red Blood Count 3.77 X10*6/uL (4.20-5.50); White Blood Count 4.2 X10*3/uL (4.8-10.8)
[2025-02-06 11:19] LABS: Alanine Aminotransferase < 6 U/L (0-31); Albumin Level 4.6 g/dL (3.5-5.0); Alkaline Phosphatase 69 U/L (39-117); Anion Gap 13 (12-20); Aspartate Amino Transferase 19 U/L (5-31); Blood Urea Nitrogen 8 mg/dL (9-16); Calcium 9.4 mg/dL (8.4-10.2); Carbon Dioxide 27 mmol/L (22-29); Chloride 109 mmol/L (96-108); Estimated Glomerular Filt Rate 52; Parathyroid Hormone Intact 77.4 pg/mL (8.7-77.1); Potassium 3.9 mmol/L (3.3-5.1); Sodium 145 mmol/L (135-145); Total Protein 6.8 g/dL (6.5-8.0)
[2025-02-06 11:35] LABS: Free T4 (Free Thyroxine) 1.14 ng/dL (0.71-1.85); Thyroid Stimulating Hormone 0.33 uIU/mL (0.32-4.0)
== END 2025-02-06 08:26 | disposition home or self-care (01) ==
LOC: HO.LAB 08:25
PROVIDERS: PCP Internal Medicine; Visit Provider Internal Medicine
DX: K21.9 Gastro-esophageal reflux disease without esophagitis (principal); J44.9 Chronic obstructive pulmonary disease, unspecified; E78.5 Hyperlipidemia, unspecified; G47.33 Obstructive sleep apnea (adult) (pediatric); F41.1 Generalized anxiety disorder; R63.4 Abnormal weight loss; I34.1 Nonrheumatic mitral (valve) prolapse; J44.89 Other specified chronic obstructive pulmonary disease; F32.A Depression, unspecified; E78.00 Pure hypercholesterolemia, unspecified; G62.9 Polyneuropathy, unspecified; E53.8 Deficiency of other specified B group vitamins; E83.52 Hypercalcemia; E03.9 Hypothyroidism, unspecified; R35.0 Frequency of micturition; R21 Rash and other nonspecific skin eruption; F17.210 Nicotine dependence, cigarettes, uncomplicated
CPT/HCPCS: 36415; 80053; 83970; 84439; 84443; 85025; 96127; 99212

== ENCOUNTER 2025-02-06 08:25 | Outpatient (AMB) | payer MEDICARE, MEDICAID, SELFPAY ==
[2025-02-06 08:39] VITALS: BP 138/84; PULSE 88; TEMP 36.1; O2SAT 96; BMI 19.1
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
--- OUTSIDE RECORDS SUMMARY | 2025-02-06 08:54 | XMS_ITS | Clinical Summary ---
Author Organization [facility] Address [address] [place] [address] Care Team Providers Care Filler Shredder Helper Name Role Phone Miller Villalpando MD Primary [...] CMS/HCC V28) 09/22/2016 DX:Chronic bronchitis (HCC) Bronchiectasis ([facility] V24, [facility] V28) 09/22/2016 DX:Bronchiectasis (HCC) Mitral [...] C and G neg. Colposcopy 04/18/2014 Seizure ([facility] V24, [facility] V28) 09/22/2016 DX:Seizure (HCC); COMMENT: [...] Health Maintenance Due Date Last Done Comments Colorectal Cancer Screening: Colonoscopy 1966 Pneumococcal Vaccine: 50+ Years (2 of 2 - PPSV23, PCV20, or PCV21) 05/07/2015 03/12/2015 Zoster Vaccines (2 of 2) 09/05/2017 07/11/2017 Breast Cancer Screening 04/01/2022 04/01/20 20, 03/25/2020, 02/14/2020, Additional history exists HIV Screening 04/11/2022 Hepatitis C Screening 04/11/2022 Osteoporosis Screening (Bone Density Screening) 04/11/2022 Social Influencers of Health Screening 04/11/2022 Cervical Cancer Screening: Pap Smear 05/21/2023 05/21/2020 Depression Screening 05/03/2024 COVID-19 Vaccine ( season) 2025 Influenza Vaccine (#1) 2025 02/02/2020, 2015 DTaP,Tdap,and Td Vaccines (2 - Td or Tdap) 04/01/2027 04/01/2017 RSV Immunization Adult Patients (1 - 1-dose 75+ series) 2041 Hepatitis B Vaccines Completed 10/18/2017, 05/18/2017, 04/01/2017 [...] RESULTING AGENCY - 05/28/2020 10:55 AM EST [id number] THINPREP PAP, IMAGED: NEGATIVE FOR SQUAMOUS INTRAEPITHELIAL LESION AND MALIGNANCY . REACTIVE CELLULAR CHANGES. SHEAN LAZARO , YUSRA(ASCP) (CASE SCREENED 05 23 [...] Recently Relevant to Health Maintenance Care Teams Filler Shredder Helper Relationship Specialty Start Date End Date Miller Villalpando MD [address] [place] [id number] PCP - General Internal Medicine 10/14/20
--- OUTSIDE RECORDS SUMMARY | 2025-02-06 08:54 | XMS_ITS | Clinical Summary ---
Author Organization [facility] Address [address] [place] [address] Care Team Providers Care Inspector Salvage Name Role Phone Unavailable Primary Care Provider [...] fluoride, sodium, (SF 5000 PLUS) 1.1 % creaIndications:[place] in hypersensitivity [place] twice daily with toothpaste then expectorate. Do not rinse.. 51 g 5 12/12/19 25 Active Active Problems No known active problems Encounters Date Type Department Care Team Description 12/11/2024 10:20 AM EDT Office Visit [facility] [address] [place] [phone] Mary Hogue DMD 12/01/2024 11:20 AM EDT Office Visit [facility] [address] [place] [phone] Jane Shelley 11/16/2024 1:00 PM EDT Office Visit [facility] [address] [place] [phone] Mary Hogue DMD from Last 3 [...] Description 06/19/2025 10:20 AM EST Office Visit [facility] [address] [place] [address] Daniel Hammond [address] [place] [address] Health Maintenance Due Date Last Done Comments [...] Diabetes Screening 07/26/2023 07/25/2020, 0 05/17/2019, 11/25/2017 Alcohol and Drug Screen 05/03/2024 Depression Annual Screen 05/03/2024 [id number] ( season) 2025 Imm-Influenza (#1) 2025 02/02/2020, 03/16/2016 Dental Perio [...]
== END 2025-02-06 09:09 | disposition home or self-care (01) ==
LOC: HO.HMCH 08:26
PROVIDERS: PCP Internal Medicine; Visit Provider Internal Medicine
DX: E78.5 Hyperlipidemia, unspecified (principal); K21.9 Gastro-esophageal reflux disease without esophagitis; J44.9 Chronic obstructive pulmonary disease, unspecified; G47.33 Obstructive sleep apnea (adult) (pediatric); F17.210 Nicotine dependence, cigarettes, uncomplicated; F41.1 Generalized anxiety disorder; R63.4 Abnormal weight loss

== ENCOUNTER 2025-02-27 08:26 | Outpatient (AMB) | payer MEDICARE, MEDICAID, SELFPAY ==
[2025-02-27 08:36] VITALS: BP 104/66; PULSE 78; TEMP 36.1; O2SAT 95; BMI 20.6
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
--- OUTSIDE RECORDS SUMMARY | 2025-02-27 09:03 | XMS_ITS | Clinical Summary ---
Author Organization [facility] Address [address] [place] [address] Care Team Providers Care Music Publisher Name Role Phone Unavailable Primary Care Provider [...] fluoride, sodium, (SF 5000 PLUS) 1.1 % creaIndications:[place] in hypersensitivity [place] twice daily with toothpaste then expectorate. Do not rinse.. 51 g 5 12/12/19 25 Active Active Problems No known active problems Encounters Date Type Department Care Team Description 12/11/2024 10:20 AM EDT Office Visit [facility] [place] [phone] Mary Hogue DMD 12/01/2024 11:20 AM EDT Office Visit [facility] [place] [phone] Jnae Shelley from Last 3 Months Social History Tobacco [...] Description 06/19/2025 10:20 AM EST Office Visit [facility] [address] [place] [phone] Daniel Hammond, [address] [place] [address] Health Maintenance Due Date Last Done Comments Anxiety Screening 1965 HPV Screening (self-collect) 1966 HPV Screening 1966 Tobacco Cessation Counseling (#1) 1966 Breast Cancer Screening (Mammogram) 2006 CT Colonography 2011 Colonoscopy 2011 Colorectal Cancer Screening 2011 FIT/gFOBT 2011 Fecal DNA 2011 Flexible Sigmoidoscopy 2011 Imm-Zoster, Recombinant (1 of 2) 02/24/2016 Imm-Pneumococcal 50+ (2 of 2 - PCV20 or PCV21) 03/12/2016 03/12/2015 Pap Smear 05/21/2023 05/21/2020 Diabetes Screening 07/26/2023 07/25/2020, 0 05/17/2019, 11/25/2017 Alcohol and Drug Screen 05/03/2024 Depression Annual Screen 05/03/2024 [id number] ( season) 2025 Imm-Influenza (#1) 2025 02/02/2020, 03/16/2016 Dental Perio Charting 05/20/2025 05/18/2024 , 04/02/2023, 04/07/2022, Additional history exists Cervical Cancer Screening 05/21/2025 Pap + HPV 05/21/2025 05/21/2020 Lipid Screening 07/25/2025 07/25/2020, 05/17/2019 Dental BW [...] Conization Discontinued Cervical Cryotherapy Discontinued Colposcopy Discontinued Excision/Leep Discontinued HPV Genotyping Discontinued Vaginal [...] 11:20 AM EDT Chronic gingivitis, plaque induced COMP PERIODONTAL EVALUATION - NEW/EST PATIENT Routine 05/18/2024 1:40 PM EST Caries of enamel (incipient) Encounter for dental examination Full INTRAORAL - COMP SERIES OF RADIOGRAPHIC IMAGES Routine 01/21/2022 1:00 PM EDT Gingivitis, chronic, plaque induced from Last 3 Months or Most Recently Relevant to Health Maintenance Insurance [employer]
== END 2025-02-27 09:17 | disposition home or self-care (01) ==
LOC: HO.HMCH 08:27
PROVIDERS: PCP Internal Medicine; Visit Provider Internal Medicine
DX: J44.9 Chronic obstructive pulmonary disease, unspecified (principal); G47.33 Obstructive sleep apnea (adult) (pediatric); F17.210 Nicotine dependence, cigarettes, uncomplicated; R63.4 Abnormal weight loss; F41.1 Generalized anxiety disorder; R82.90 Unspecified abnormal findings in urine; R00.2 Palpitations

== ENCOUNTER → 2025-02-27 08:26 | Outpatient (BNVA) | payer MEDICARE, MEDICAID, SELFPAY | PROVIDERS: PCP Internal Medicine; Visit Provider Internal Medicine | DX: G47.33 Obstructive sleep apnea (adult) (pediatric) (principal); J44.9 Chronic obstructive pulmonary disease, unspecified; R63.4 Abnormal weight loss; F41.1 Generalized anxiety disorder; R82.90 Unspecified abnormal findings in urine; R00.2 Palpitations; F17.210 Nicotine dependence, cigarettes, uncomplicated; R00.0 Tachycardia, unspecified | CPT/HCPCS: 96127; 99212 ==

== ENCOUNTER → 2025-03-01 08:22 | Outpatient (REF) | payer MEDICARE, MEDICAID, SELFPAY ==
--- NOTE | 2025-03-01 08:28 | HM_ITS ---
Conclusion: 1. Patient was monitored for total period of 3 days 2. Baseline was normal sinus rhythm with average heart of 71 beats per minute 3. No significant pauses noted 4. Very rare PACs noted 5. Patient marked the counter 9 times with symptoms of rapid heart rate and dizziness correlating with sinus rhythm MTDD
--- OUTSIDE RECORDS SUMMARY | 2025-03-01 08:58 | XMS_ITS | Encounter Summary ---
Author Organization [facility] Address [address] [place] [address] Care Team Providers Care Forest Supervisor Name Role Phone Celio Marmolejo MD Primary Care Provider [phone] Miller Villalpando Primary Care Provider Unavailabl e Encounter Details Date Type Department Care Team Description 06/24/2017 Orders Only Medical Records [address] [place] [address] Ghulam Byrd DPM Social History Tobacco Use [...] on filedocumented in this encounter Care Teams Forest Supervisor Relationship Specialty Start Date End Date Celio Marmolejo MD [address] [place] [address] PCP - General Internal Medicine 08/31/16 10/13/20 Miller Villalpando [address] [place] [address] PCP - General Internal Medicine 10/14/20 documented as of this encounter
--- OUTSIDE RECORDS SUMMARY | 2025-03-01 08:58 | XMS_ITS | Clinical Summary ---
Author Organization [facility] Address [address] [place] [address] Care Team Providers Care Funeral Car Driver Name Role Phone Miller Villalpando MD Primary Care Provider [phone] Surgical History Surgery Date Site/Laterality Comments OTHER SURGICAL HISTORY PROCEDURE: ---- OTHER ----; COMMENT: right upper apex lung lobe removed APPENDECTOMY PROCEDURE: HISTORICAL APPENDECTOMY COLONOSCOPY 03/15/2014 [facility] PROCEDURE: HISTORICAL COLONOSCOPY; COMMENT: Two 8-10 mm adenomas; repeat in 3 yrs OTHER SURGICAL HISTORY 03/05/2014 PROCEDURE: AK ESOPHAGOSCOPY FLEXIBLE TRANSORAL DIAGNOSTIC; COMMENT: small HH; [...] high-fiber diet COLONOSCOPY W/ POLYPECTOMY 09/09/2017 PROCEDURE: AK COLSC FLX W/RMVL OF TUMOR POLYP LESION SNARE TQ; COMMENT: 12 small polyps, all adenomas; hemorrhoids. Repeat in 3 years under propofol OTHER SURGICAL HISTORY PROCEDURE: IMPLANT BREAST SILICONE/EQ TUBAL LIGATION PROCEDURE: HISTORICAL TUBAL LIGATION OTHER SURGICAL HISTORY PROCEDURE: AK REMOVAL OF LUNG PNEUMONECTOMY Medical History Medical History Date Comments Asthma 09/22/2016 DX:Asthma COPD (chronic obstructive pu lmonary disease) (CMS/HCC V24, CMS/HCC V28) 09/22/2016 DX:COPD (chronic o bstructive pulmonary disease) (HCC) Chronic bronchitis (CMS/HCC V24, CMS/HCC V28) 09/22/2016 DX:Chronic bronchitis (HCC) Bronchiectasis ([facility] V24, [facility] V28) 09/22/2016 DX:Bronchiectasis (HCC) Mitral valve prolapse [...] Uses CPAP every night Atypical squamous cell ehnson es of undetermined significance (ASCUS) on cervical [...] C and G neg. Colposcopy 04/18/2014 Seizure ([facility] V24, [facility] V28) 09/22/2016 DX:Seizure (HCC); COMMENT: Patient states [...] - PPSV23, PCV20, or PCV21) 05/07/2015 03/12/2015 RSV Immunization Adult Patients (1 - Risk 50-74 years 1-dose series) 02/24/2016 Zoster Vaccines (2 of 2) 09/05/2017 07/11/2017 [...] RESULTING AGENCY - 05/28/2020 10:55 AM EST [id number] THINPREP PAP, IMAGED: NEGATIVE FOR SQUAMOUS INTRAEPITHELIAL [...] Recently Relevant to Health Maintenance Care Teams Funeral Car Driver Relationship Specialty Start Date End Date Miller Villalpando MD [address] [place] [address] PCP - General Internal Medicine 10/14/20
--- OUTSIDE RECORDS SUMMARY | 2025-03-01 08:58 | XMS_ITS | Encounter Summary ---
Author Organization [facility] Address [address] [place] [address] Care Team Providers Care Grinder Operator Name Role Phone Celio Maromlejo MD Primary Care Provider [phone] [phone] Miller Villalpando Primary Care Provider Unavailabl e Reason for Visit * Reason Onset Date Comments Provider Call Back 08/30/2017 Encounter Details Date Type Department Care Team Description 08/30/2017 Telephone Podiatry - [place] [address] [place] [address] Ghulam Byrd DPM Provider Call Back Social [...] on filedocumented in this encounter Care Teams Grinder Operator Relationship Specialty Start Date End Date Celio Marmoljeo MD [address] [place] [address] PCP - General Internal Medicine 08/31/16 10/13/20 Miller Villalpando [address] [place] [address] PCP - General Internal Medicine 10/14/20 documented as of this encounter
--- OUTSIDE RECORDS SUMMARY | 2025-03-01 08:58 | XMS_ITS | Encounter Summary ---
Author Organization [facility] Address [address] [place] [address] Care Team Providers Care Bridge Expert Name Role Phone Celio Marmolejo MD Primary Care Provider +1 -[phone] Miller Villalpando Primary Care Provider Unavailabl e Encounter Details Date Type Department Care Team Description 09/14/2017 Orders Only Pulmonology - [address] [place] [address] Mary Ann Ratliff NP Social [...] on filedocumented in this encounter Care Teams Bridge Expert Relationship Specialty Start Date End Date Celio Marmolejo MD [address] [place] [address] PCP - General Internal Medicine 08/31/16 10/13/20 Miller Villalpando [address] [place] [address] PCP - General Internal Medicine 10/14/20 documented as of this encounter
--- OUTSIDE RECORDS SUMMARY | 2025-03-01 08:59 | XMS_ITS | Encounter Summary ---
Author Organization [facility] Address [address] [place] [address] Care Team Providers Care Transformer Stock Clerk Name Role Phone Celio Marmolejo MD Primary Care Provider +1 -[phone] Miller Villalpando Primary Care Provider Unavailabl e Encounter Details Date Type Department Care Team Description 06/18/2017 Hospital Medical Records [address] [place] [address] Ghulam Byrd, DPM Social History Tobacco Use [...] on filedocumented in this encounter Care Teams Transformer Stock Clerk Relationship Specialty Start Date End Date Celio Marmolejo MD [address] [place], [place] [id number] PCP - General Internal Medicine 08/31/16 10/13/20 Miller Villalpando [address] [place] [address] PCP - General Internal Medicine 10/14/20 documented as of this encounter
--- OUTSIDE RECORDS SUMMARY | 2025-03-01 08:59 | XMS_ITS | Encounter Summary ---
Author Organization [facility] Address [address] [place] [address] Care Team Providers Care Airport Operations Manager Name Role Phone Celio Marmolejo MD Primary Care Provider [phone] [phone] Miller Villalpando Primary Care Provider Unavailabl e Reason for Visit * Reason Onset Date Comments medication problems 12/16/2017 Encounter Details Date Type Department Care Team Description 12/16/2017 Telephone Pulmonology - [address] [place] [address] Diego Hartley MD medication problems [...] - 12/16/2017 4:21 PM EDT Called, will merchandise pickup/receiving associate symbicort 80/4.5 * Telephone Encounter - Yvonne [...] on filedocumented in this encounter Care Teams Airport Operations Manager Relationship Specialty Start Date End Date Celio Marmolejo MD [address] [place] [address] PCP - General Internal Medicine 08/31/16 10/13/20 Miller Villalpando [address] [place] [address] PCP - General Internal Medicine 10/14/20 documented as of this encounter
--- OUTSIDE RECORDS SUMMARY | 2025-03-01 08:59 | XMS_ITS | Encounter Summary ---
Author Organization [facility] Address [address] [place] [address] Care Team Providers Care Assistant Clinical Director Name Role Phone Celio Marmolejo MD Primary Care Provider +1 -[phone] Miller Villalpando Primary Care Provider Unavailabl e Encounter Details Date Type Department Care Team Description 09/21/2019 Weights And Measures Inspector Report Medical Records [address] [place] [address] Diego Hartley MD Social History Tobacco Use [...] on filedocumented in this encounter Care Teams Assistant Clinical Director Relationship Specialty Start Date End Date Celio Marmolejo MD [address] [place] [address] PCP - General Internal Medicine 08/31/16 10/13/20 Miller Villalpando [address] [place] [address] PCP - General Internal Medicine 10/14/20 documented as of this encounter
--- OUTSIDE RECORDS SUMMARY | 2025-03-01 08:59 | XMS_ITS | Encounter Summary ---
Author Organization [facility] Address [address] [place] [address] Care Team Providers Care Safety Pin Assembling Machine Operator Name Role Phone Celio Marmolejo MD Primary Care Provider +1 -[phone] Miller Villalpando Primary Care Provider Unavailabl e Encounter Details Date Type Department Care Team Description 06/18/2017 Hospital Medical Records [address] [place] [address] Ghulam Byrd, DPM Social History Tobacco Use [...] on filedocumented in this encounter Care Teams Safety Pin Assembling Machine Operator Relationship Specialty Start Date End Date Celio Marmolejo MD [address] [place], [place] [phone] PCP - General Internal Medicine 08/31/16 10/13/20 Miller Villalpando [address] [place] [address] PCP - General Internal Medicine 10/14/20 documented as of this encounter
--- OUTSIDE RECORDS SUMMARY | 2025-03-01 08:59 | XMS_ITS | Encounter Summary ---
Author Organization [facility] Address [address] [place] [address] Care Team Providers Care Purchasing Internship Name Role Phone Celio Marmolejo MD Primary Care Provider +1 -[phone] Miller Villalpando Primary Care Provider Unavailabl e Encounter Details Date Type Department Care Team Description 09/15/2017 Orders Only Pulmonology - [address] [place] [address] Mary Ann Ratliff NP Social [...] on filedocumented in this encounter Care Teams Purchasing Internship Relationship Specialty Start Date End Date Celio Marmolejo MD [address] [place] [address] PCP - General Internal Medicine 08/31/16 10/13/20 Miller Villalpando [address] [place] [address] PCP - General Internal Medicine 10/14/20 documented as of this encounter
--- OUTSIDE RECORDS SUMMARY | 2025-03-01 08:59 | XMS_ITS | Encounter Summary ---
Author Organization [facility] Address [address] [place] [address] Care Team Providers Care Skein Straightener Name Role Phone Celio Marmolejo MD Primary Care Provider +1 -[phone] Miller Villalpando Primary Care Provider Unavailabl e Encounter Details Date Type Department Care Team Description 06/22/2019 Retail Client Solutions Analyst Report Medical Records [address] [place] [address] Diego Hartley MD Social History Tobacco Use [...] on filedocumented in this encounter Care Teams Skein Straightener Relationship Specialty Start Date End Date Celio Marmolejo MD [address] [place] [address] PCP - General Internal Medicine 08/31/16 10/13/20 Miller Villalpando [address] [place] [address] PCP - General Internal Medicine 10/14/20 documented as of this encounter
--- OUTSIDE RECORDS SUMMARY | 2025-03-01 08:59 | XMS_ITS | Encounter Summary ---
Author Organization [facility] Address [address] [place] [address] Care Team Providers Care Chuck Wagon Cook Name Role Phone Celio Marmolejo MD Primary Care Provider +1 -[phone] Miller Villalpadno Primary Care Provider Unavailabl e Encounter Details Date Type Department Care Team Description 05/23/2020 Wall Man Report Medical Records [address] [place] [address] Diego Hartley MD Social History Tobacco Use [...] on filedocumented in this encounter Care Teams Chuck Wagon Cook Relationship Specialty Start Date End Date Celio Marmolejo MD [address] [place] [address] PCP - General Internal Medicine 08/31/16 10/13/20 Miller Villalpando [address] [place] [address] PCP - General Internal Medicine 10/14/20 documented as of this encounter
--- OUTSIDE RECORDS SUMMARY | 2025-03-01 08:59 | XMS_ITS | Encounter Summary ---
Author Organization [facility] Address [address] [place] [address] Care Team Providers Care Administration Professional Name Role Phone Celio Marmolejo MD Primary Care Provider +1 -[phone] Miller Villalpando Primary Care Provider Unavailabl e Encounter Details Date Type Department Care Team Description 10/05/2019 Forging Engineer Report Medical Records [address] [place] [address] Diego Hartley MD Social History Tobacco Use [...] on filedocumented in this encounter Care Teams Administration Professional Relationship Specialty Start Date End Date Celio Marmolejo MD [address] [place] [address] PCP - General Internal Medicine 08/31/16 10/13/20 Miller Villalpando [address] [place] [address] PCP - General Internal Medicine 10/14/20 documented as of this encounter
--- OUTSIDE RECORDS SUMMARY | 2025-03-01 08:59 | XMS_ITS | Encounter Summary ---
Author Organization [facility] Address [address] [place] [address] Care Team Providers Care Senior Information Security Engineer Name Role Phone Celio Marmolejo MD Primary Care Provider +1 -[phone] Miller Villalpando Primary Care Provider Unavailabl e Encounter Details Date Type Department Care Team Description 11/08/2019 Rock Room Worker Report Medical Records [address] [place] [address] Abstract, Provider Social History Tobacco Use Types [...] filedocumented in this encounter Care Teams Senior Information Security Engineer Relationship Specialty Start Date End Date Celio Marmolejo MD [address] [place] [address] PCP - General Internal Medicine 08/31/16 10/13/20 Miller Villalpando [address] [place] [address] PCP - General Internal Medicine 10/14/20 documented as of this encounter
--- OUTSIDE RECORDS SUMMARY | 2025-03-01 08:59 | XMS_ITS | Encounter Summary ---
Author Organization [facility] Address [address] [place] [address] Care Team Providers Care Bevel Operator Name Role Phone Celio Marmolejo MD Primary Care Provider +1 -[phone] Miller Villalpando Primary Care Provider Unavailabl e Encounter Details Date Type Department Care Team Description 07/17/2019 Suede Brusher Report Medical Records [address] [place] [address] Diego Hartley MD Social History Tobacco Use [...] on filedocumented in this encounter Care Teams Bevel Operator Relationship Specialty Start Date End Date Celio Marmolejo MD [address] [place] [address] PCP - General Internal Medicine 08/31/16 10/13/20 Miller Villalpando [address] [place] [address] PCP - General Internal Medicine 10/14/20 documented as of this encounter
--- OUTSIDE RECORDS SUMMARY | 2025-03-01 08:59 | XMS_ITS | Encounter Summary ---
Author Organization [facility] Address [address] [place] [address] Care Team Providers Care Truck Driver Salesperson Name Role Phone Celio Marmolejo MD Primary Care Provider +1 -[phone] Miller Villalpando Primary Care Provider Unavailabl e Reason for Visit * Reason Onset Date Comments Testing 11/22/2019 [facility] Encounter Details Date Type Department Care Team Description 11/22/2019 Telephone Medicine/Pediatrics - [address] [address] Pretty Salazar NP [address] [place] [address] Testing ([facility]) Social History Tobacco Use Types Packs/Day Years [...] verbally understands Printed and placed in patient warehouse picker * Telephone Encounter - Pretty Salazar NP - 11/27/2019 9:02 AM EDT Please print AND STAMP letter from today for patient to warehouse picker in [place]. She is traveling tomorrow AM. * Telephone [...] 11/22/2019 11:15 AM EDT Call placed to [facility] Testing facility. Patient info confirmed: Appt scheduled 11-24-19 at 10:35am at [address] [place] [address] Orders hand faxed to [phone] documented in this encounter Plan of Treatment Not on file documented as of this encounter Visit Diagnoses Not on filedocumented in this encounter Care Teams Truck Driver Salesperson Relationship Specialty Start Date End Date Celio Marmolejo MD [address] [place] [address] PCP - General Internal Medicine 08/31/16 10/13/20 Miller Villalpando [address] [place] [address] PCP - General Internal Medicine 10/14/20 documented as of this encounter
--- OUTSIDE RECORDS SUMMARY | 2025-03-01 08:59 | XMS_ITS | Encounter Summary ---
Author Organization [facility] Address [address] [place] [address] Care Team Providers Care Oil And Gas Principal Name Role Phone Celio Marmolejo MD Primary Care Provider +1 -[phone] Miller Villalpando Primary Care Provider Unavailabl e Encounter Details Date Type Department Care Team Description 04/18/2014 Hospital Medical Records [address] [place] [address] Alisia Ordonez MD Social History Tobacco Use [...] on filedocumented in this encounter Care Teams Oil And Gas Principal Relationship Specialty Start Date End Date Celio Marmolejo MD [address] [place], [place] [phone] PCP - General Internal Medicine 08/31/16 10/13/20 Miller Villalpando [address] [place] [address] PCP - General Internal Medicine 10/14/20 documented as of this encounter
--- OUTSIDE RECORDS SUMMARY | 2025-03-01 08:59 | XMS_ITS | Encounter Summary ---
Author Organization [facility] Address [address] [place] [address] Care Team Providers Care Internet Database Specialist Name Role Phone Celio Marmolejo MD Primary Care Provider +1 -[phone] Miller Villalpando Primary Care Provider Unavailabl e Encounter Details Date Type Department Care Team Description 10/23/2019 Incinerator Plant Laborer Report Medical Records [address] [place] [address] Abstract, Provider Social History Tobacco Use Types [...] on filedocumented in this encounter Care Teams Internet Database Specialist Relationship Specialty Start Date End Date Celio Marmolejo MD [address] [place] [address] PCP - General Internal Medicine 08/31/16 10/13/20 Miller Villalpando [address] [place] [address] PCP - General Internal Medicine 10/14/20 documented as of this encounter
--- OUTSIDE RECORDS SUMMARY | 2025-03-01 08:59 | XMS_ITS | Encounter Summary ---
Author Organization [facility] Address [address] [place] [address] Care Team Providers Care Quality [facility] Assoc Name Role Phone Celio Marmolejo MD Primary Care Provider +1 -[phone] Miller Villalpando Primary Care Provider Unavailabl e Encounter Details Date Type Department Care Team Description 07/09/2020 Old Medical Records Medical Records [address] [place] [address] Abstract, Provider Social History Tobacco Use Types [...] on filedocumented in this encounter Care Teams [facility] Relationship Specialty Start Date End Date Celio Marmolejo MD [address] [place] [address] PCP - General Internal Medicine 08/31/16 10/13/20 Miller Villalpando [address] [place] [address] PCP - General Internal Medicine 10/14/20 documented as of this encounter
--- OUTSIDE RECORDS SUMMARY | 2025-03-01 09:00 | XMS_ITS | Encounter Summary ---
Author Organization [facility] Address [address] [place] [address] Care Team Providers Care Game Programmer Name Role Phone Celio Marmolejo MD Primary Care Provider +1 -[phone] Miller Villalpando Primary Care Provider Unavailabl e Encounter Details Date Type Department Care Team Description 10/05/2017 Orders Only Podiatry - [place] [address] [place] [address] Ghulam Byrd DPM Osteomyelitis of right foot, [...] C-REACTIVE PROTEIN (10/08/2017 2:17 PM EDT) Pathologist [facility] CRP 0.27 0.08 - 0.80 mg/dL 10/08/2017 5:11 PM EDT [facility] 10/08/2017 2:17 PM EDT 10/08/2017 2:17 PM EDT Ghulam Byrd DPM LAB [facility] [employer] [facility] [address] [facility] * RBC SEDIMENTATION RATE, NON-AUTO (10/08/2017 2:17 PM EDT) Pathologist [facility] ESR 2 0 - 30 mm/hr 10/08/2017 6:56 PM EDT [facility] 10/08/2017 2:17 PM EDT 10/08/2017 2:17 PM EDT Ghulam FERRAROM LAB Performing Organization Address [facility] Co de Phone Number [address] * CREATININE, BLOOD ASSAY (10/08/2017 2:17 PM EDT) CREAT 1.0 0.7 - 1.5 mg/dL 10/08/2017 5:11 PM EDT [facility] GFR > 60 >60 10/08/2017 5:11 PM T [facility] Comment: If patient is -Pakistani, multiply result by 1.21 Chronic Kidney Disease: < 60 ml/min/1.73 square meters Kidney Failure: < 15 ml/min/1.73 square meters 10/08/2017 2:17 PM EDT 10/08/2017 2:17 PM EDT Ghulam FERRAROM LAB Performing Organization Address [facility] Phone Number [address] * (ABNORMAL) CBC (AUTO DIFF PLATELET) (10/08/2017 2:17 PM EDT) WBC 7.0 4.8 - 10.8 x10-3 10/08/2017 4:19 PM EDT [facility] RBC 4.4 3.8 - 4.8 x10-6 10/08/2017 4:19 PM EDT [facility] HGB 14.5 11.5 - 16.0 g/dl 10/08/2017 4:19 PM EDT [facility] HCT 44.1 35 - 47 % 10/08/2017 4:19 PM EDT [facility] MCV 99.8(H) 79 - 98 fl 10/08/2017 4:19 PM EDT [facility] MCH 32.8(H) 27 - 32 pg 10/08/2017 4:19 PM EDT [facility] MCHC 32.9 32 - 37 g/dl 10/08/2017 4:19 PM EDT [facility] RDW 13.8 11 - 15 % 10/08/2017 4:19 PM EDT [facility] PLT COUNT 313 130 - 400 x10-3 10/08/2017 4:19 PM EDT [facility] MEAN PLATELET VOLUME 9.8 7 - 11 fl 10/08/2017 4:19 PM EDT [facility] NEUT % 59.1 41 - 85 % 10/08/2017 4:19 PM EDT [facility] LYMPH % 30.1 15 - 48 % 10/08/2017 4:19 PM EDT [facility] MONO % 8.1 0 - 12 % 10/08/2017 4:19 PM EDT [facility] EOS % 2.0 0 - 5 % 10/08/2017 4:19 PM EDT [facility] BASO % 0.7 0 - 2 % 10/08/2017 4:19 PM EDT [facility] 10/08/2017 2:17 PM EDT 10/08/2017 2:17 PM EDT Ghulam Byrd DPM LAB Performing Organization Address City/State/[facility] Co de Phone Number [facility] [address] [facility] * [...] Primary documented in this encounter Care Teams Game Programmer Relationship Specialty Start Date End Date Celio Marmolejo MD [address] [place] [address] PCP - General Internal Medicine 08/31/16 10/13/20 Miller Villalpando [address] [place] [address] PCP - General Internal Medicine 10/14/20 documented as of this encounter
--- OUTSIDE RECORDS SUMMARY | 2025-03-01 09:00 | XMS_ITS | Encounter Summary ---
Author Organization [facility] Address [address] [place] [address] Care Team Providers Care Electromechanical Inspector Name Role Phone Celio Marmolejo MD Primary Care Provider +1 -[phone] Miller Villalpando Primary Care Provider Unavailabl e Reason for Visit * Reason Comments E-prescribe Rx Request Encounter Details Date Type Department Care Team Description 03/02/2019 Refill Pulmonology - [place] [address] [facility] [address] [place] [phone] Dylon Dotson MD [address] [place] [phone] E-prescribe Rx Request Social History Tobacco Use [...] (HCC) documented in this encounter Care Teams Electromechanical Inspector Relationship Specialty Start Date End Date Celio Marmolejo MD [address] [place] [address] PCP - General Internal Medicine 08/31/16 10/13/20 Miller Villalpando [address] [place] [address] PCP - General Internal Medicine 10/14/20 documented as of this encounter
--- OUTSIDE RECORDS SUMMARY | 2025-03-01 09:00 | XMS_ITS | Encounter Summary ---
Author Organization [facility] Address [address] [place] [address] Care Team Providers Care Diesel Engine Specialist Name Role Phone Celio Marmolejo MD Primary Care Provider +1 -[phone] Miller Villalpando Primary Care Provider Unavailabl e Reason for Visit * Reason Onset Date Comments Medication 08/10/2018 Encounter Details Date Type Department Care Team Description 08/10/2018 Telephone Pulmonology - [place] [address] [facility] [address] [place] [address] Diego Hartley MD Medication Social [...] on filedocumented in this encounter Care Teams Diesel Engine Specialist Relationship Specialty Start Date End Date Celio Marmolejo MD [address] [place] [address] PCP - General Internal Medicine 08/31/16 10/13/20 Miller Villalpando [address] [place] [address] PCP - General Internal Medicine 10/14/20 documented as of this encounter
--- OUTSIDE RECORDS SUMMARY | 2025-03-01 09:00 | XMS_ITS | Encounter Summary ---
Author Organization [facility] Address [address] [place] [address] Care Team Providers Care Meat Molder Name Role Phone Celio Marmolejo MD Primary Care Provider +1 -[phone] Miller Villalpando Primary Care Provider Unavailabl e Encounter Details Date Type Department Care Team Description 03/01/2020 Hospital Medical Records [address] [place] [address] [facility] Social History Tobacco Use Types Packs/Day [...] on filedocumented in this encounter Care Teams Meat Molder Relationship Specialty Start Date End Date Celio Marmolejo MD [address] [place] [address] PCP - General Internal Medicine 08/31/16 10/13/20 Miller Villalpando [address] [place] [address] PCP - General Internal Medicine 10/14/20 documented as of this encounter
--- OUTSIDE RECORDS SUMMARY | 2025-03-01 09:00 | XMS_ITS | Encounter Summary ---
Author Organization [facility] Address [address] [place] [address] Care Team Providers Care Dinkey Dispatcher Name Role Phone Celio Marmolejo MD Primary Care Provider +1 -[phone] Miller Villalpando Primary Care Provider Unavailabl e Reason for Visit * Reason Onset Date Comments Infiltrates 11/08/2017 [email or web address] Encounter Details Date Type Department Care Team Description 11/08/2017 Telephone Pulmonology - [address] [place] [address] Diego Hartley MD Infiltrates (pnuemonia [...] go to the ER.FYI.she will go to [facility] ED. * Telephone Encounter - Gabriela Holland - 11/08/2017 9:43 AM EDT [id number] Patient is calling in due to double [...] on filedocumented in this encounter Care Teams Dinkey Dispatcher Relationship Specialty Start Date End Date Celio Marmolejo MD [address] [place] [address] PCP - General Internal Medicine 08/31/16 10/13/20 Miller Villalpando [address] [place] [address] PCP - General Internal Medicine 10/14/20 documented as of this encounter
--- OUTSIDE RECORDS SUMMARY | 2025-03-01 09:00 | XMS_ITS | Encounter Summary ---
Author Organization [facility] Address [address] [place] [address] Care Team Providers Care Field Liability Generalist Name Role Phone Celio Marmolejo MD Primary Care Provider +1 -[phone] Miller Villalpando Primary Care Provider Unavailabl e Encounter Details Date Type Department Care Team Description 04/02/2020 Quick Print Operator Report Medical Records [address] [place] [address] Erika Hernandes Social History Tobacco Use Types [...] on filedocumented in this encounter Care Teams Field Liability Generalist Relationship Specialty Start Date End Date Celio Marmolejo MD [address] [place] [address] PCP - General Internal Medicine 08/31/16 10/13/20 Miller Villalpando [address] [place] [address] PCP - General Internal Medicine 10/14/20 documented as of this encounter
--- OUTSIDE RECORDS SUMMARY | 2025-03-01 09:00 | XMS_ITS | Encounter Summary ---
Author Organization [facility] Address [address] [place] [address] Care Team Providers Care Food Tester Name Role Phone Celio Marmolejo MD Primary Care Provider +1 -[phone] Miller Villalpando Primary Care Provider Unavailabl e Reason for Visit * Reason Onset Date Comments DME Request 09/01/2018 Encounter Details Date Type Department Care Team Description 09/01/2018 Telephone Pulmonology - [address] [place] [address] Diego Hartley MD DME Request [...] filedocumented in this encounter Care Teams Food Tester Relationship Specialty Start Date End Date Celio Marmolejo MD [address] [place] [address] PCP - General Internal Medicine 08/31/16 10/13/20 Miller Villalpando [address] [place] [address] PCP - General Internal Medicine 10/14/20 documented as of this encounter
--- OUTSIDE RECORDS SUMMARY | 2025-03-01 09:00 | XMS_ITS | Clinical Summary ---
Author Organization [facility] Address [address] [place] [address] Care Team Providers Care Business Consultant Name Role Phone Unavailable Primary Care Provider [...] fluoride, sodium, (SF 5000 PLUS) 1.1 % creaIndications:Routt in hypersensitivity [place] twice daily with toothpaste then expectorate. Do not rinse.. 51 g 5 12/12/19 25 Active Active Problems No known active problems Encounters Date Type Department Care Team Description 12/11/2024 10:20 AM EDT Office Visit [facility] [place] [address] Mary Hogue DMD 12/01/2024 11:20 AM EDT Office Visit [facility] [place] [address] Jane Shelley from Last 3 Months Social History [...] Description 06/19/2025 10:20 AM EST Office Visit [facility] [address] [place] [id number] Daniel Hammond, Nathaniel [address] [place] [address] Health Maintenance Due Date Last Done Comments [...] Drug Screen 05/03/2024 Depression Annual Screen 05/03/2024 [id number] ( season) 2025 Imm-Influenza (#1) 2025 02/02/2020, [...]
--- OUTSIDE RECORDS SUMMARY | 2025-03-01 09:00 | XMS_ITS | Encounter Summary ---
Author Organization [facility] Address [address] [place] [address] Care Team Providers Care Retort Unloader Name Role Phone Celio Marmolejo MD Primary Care Provider +1 -[phone] Miller Villalpando Primary Care Provider Unavailabl e Encounter Details Date Type Department Care Team Description 05/11/2017 Orders Only Adult Medicine [address] [id number] Celio Marmolejo MD [address] [place] [address] Preoperative examination; Screening for deficiency anemia; assisted current use of anticoagulant therapy Social History [...] NEGATIVE <=TRACE mg/dL 05/25/2017 2:38 PM EST [facility] GLUCOSE, URINE (UA) NEGATIVE NEGATIVE mg/dL 05/25/2017 2:38 PM [facility] KETONE, URINE NEGATIVE NEGATIVE mg/dL 05/25/2017 2:38 PM [facility] BILIRUBIN URINE NEGATIVE NEGATIVE 05/25/2017 2:38 PM [facility] UROBILINOGEN, URINE 0.2 0.2 - 1.0 E.U./dL 05/25/2017 2:38 PM [facility] BLOOD, URINE NEGATIVE NEGATIVE 05/25/2017 2:38 PM [facility] NITRITE,URINE NEGATIVE NEGATIVE 05/25/2017 2:38 PM [facility] LEUKOCYTE ESTERASE, URINE NEGATIVE NEGATIVE 05/25/2017 2:38 PM [facility] RBC-Urine NONE 0 - 4 /hpf 05/25/2017 4:03 PM [facility] WBC, URINE NONE 0 - 4 /hpf 05/25/2017 4:03 PM [facility] 05/25/2017 10:1 5 AM EST 05/25/2017 10:16 AM EST Celio Marmolejo MD LAB Performing Organization Address [facility] Co de Phone Number [address] * THROMBOPLASTIN TIME, PARTIAL (05/18/2017 1:54 PM EST) PTT 32.6 20.6 - 33.6 SEC 05/18/2017 5:31 PM [facility] Comment: Please note adjusted APTT (sec) reference range effective 2015. 05/18/2017 1:54 PM EST 05/18/2017 1:54 PM EST Celio Marmolejo MD LAB Performing Organization Address [facility] Co de Phone Number [address] * PROTHROMBIN TIME (05/18/2017 1:54 PM EST) PT 12.0 11.6 - 15.6 SEC 05/18/2017 4:55 PM [facility] Comment: Please note adjusted PT(sec)normal reference range effective 15. INR 0.90 05/18/2017 4:55 PM EST [facility] 05/18/2017 1:54 PM EST 05/18/2017 1:54 PM EST Celio Marmolejo MD LAB [facility] [address] [facility] * BASIC METABOLIC PANEL (05/18/2017 1:54 PM EST) [facility] GLUCOSE 78 70 - 100 mg/dL 05/18/2017 4:59 PM EST [facility] Comment: Reference range applicable to fasting specimens only Based on recommendations from the ADA and AACE, the fasting glucose reference range has been changed to 70-100 mg/dL. This change is effective September 16, 2009 BUN 7 5 - 25 mg/dL 05/18/2017 4:59 PM EST [facility] CREAT 1.0 0.7 - 1.5 mg/dL 05/18/2017 4:59 PM EST [facility] GFR > 60 >60 05/18/2017 4:59 PM EST [facility] Comment: If patient is -Mauritian, multiply result by 1.21 Chronic Kidney Disease: < 60 ml/min/1.73 square meters Kidney Failure: < 15 ml/min/1.73 square meters Sodium 138 133 - 145 mEq/L 05/18/2017 4:59 PM EST [facility] Potassium 4.5 3.5 - 5.5 mEq/L 05/18/2017 4:59 PM EST [facility] Chloride 98 96 - 108 mEq/L 05/18/2017 4:59 PM EST [facility] CO2 29.2 21.0 - 32.0 mEq/L 05/18/2017 4:59 PM EST [facility] CALCIUM 9.3 8.5 - 10.5 mg/dL 05/18/2017 4:59 PM EST [facility] 05/18/2017 1:54 PM EST 05/18/2017 1:54 PM EST Celio Marmolejo MD LAB [facility] [address] [facility] * (ABNORMAL) CBC (AUTO [...] Marmolejo MD LAB Performing Organization Address City/State/[facility] Co de Phone Number [facility] [address] [place] [address] documented in this encounter Visit Diagnoses Diagnosis Preoperative examination Preoperative examination, unspecified Screening for deficiency anemia 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
--- OUTSIDE RECORDS SUMMARY | 2025-03-01 09:01 | XMS_ITS | Encounter Summary ---
Author Organization [facility] Address [address] [place] [address] Care Team Providers Care Furnace Unloader Name Role Phone Celio Marmolejo MD Primary Care Provider [phone] -[phone] Miller Villalpando Primary Care Provider Unavailabl e Reason for Visit * Reason Onset Date Comments APPOINTMENT 08/14/2020 PT CANCELLING Encounter Details Date Type Department Care Team Description 08/14/2020 Telephone Cardio PVC POC [address] [facility] [place] [facility] [address] [place] [address] Sita Mahoney MD [address] [place] [address] APPOINTMENT (PT CANCELLING) Social History Tobacco Use [...] IN HTE DAY. PLEASE CALL HER AT [phone] OR [phone] TO RESCHEDULE documented in this encounter Plan of Treatment Not on file documented as of this encounter Visit Diagnoses Not on filedocumented in this encounter Care Teams Furnace Unloader Relationship Specialty Start Date End Date Celio Marmolejo MD [address] [place] [address] PCP - General Internal Medicine 08/31/16 10/13/20 Miller Villalpando [address] [place] [address] PCP - General Internal Medicine 10/14/20 documented as of this encounter
--- OUTSIDE RECORDS SUMMARY | 2025-03-01 09:01 | XMS_ITS | Encounter Summary ---
Author Organization [facility] Address [address] [place] [address] Care Team Providers Care Gas Station Service Attendant Name Role Phone Celio Marmolejo MD Primary Care Provider +1 -[phone] Miller Villalpando Primary Care Provider Unavailabl e Encounter Details Date Type Department Care Team Description 01/28/2018 Senior Applications Architect Report Medical Records [address] [place] [address] Michela Salazar Social History Tobacco Use Types [...] on filedocumented in this encounter Care Teams Gas Station Service Attendant Relationship Specialty Start Date End Date Celio Marmolejo MD [address] [place] [address] PCP - General Internal Medicine 08/31/16 10/13/20 Miller Villalpando [address] [place] [address] PCP - General Internal Medicine 10/14/20 documented as of this encounter
--- OUTSIDE RECORDS SUMMARY | 2025-03-01 09:01 | XMS_ITS | Encounter Summary ---
Author Organization [facility] Address [address] [place] [address] Care Team Providers Care Net Mender Name Role Phone Celio Marmolejo MD Primary Care Provider +1 -[phone] Miller Villalpando Primary Care Provider Unavailabl e Reason for Visit * Reason Comments E-prescribe Rx Request Encounter Details Date Type Department Care Team Description 09/01/2020 Refill Adult Medicine - [address] [phone] Celio Marmolejo MD [address] [place] [address] E-prescribe Rx Request Social History Tobacco Use [...] - MEDICARE / Plan: MEDICARE FFS $5 [place] [id number] / Product Type: MEDICARE [id number] Insurance ID #: [id number] documented in this encounter Plan of Treatment Not on file documented as of this encounter Visit Diagnoses Not on filedocumented in this encounter Care Teams Net Mender Relationship Specialty Start Date End Date Celio Marmolejo MD [address] [place] [address] PCP - General Internal Medicine 08/31/16 10/13/20 Miller Villalpando [address] [place] [address] PCP - General Internal Medicine 10/14/20 documented as of this encounter
--- OUTSIDE RECORDS SUMMARY | 2025-03-01 09:01 | XMS_ITS | Encounter Summary ---
Author Organization [facility] Address [address] [place] [address] Care Team Providers Care Life Tester [employer] Name Role Phone Celio Marmolejo MD Primary Care Provider +1 -[phone] Miller Villalpando Primary Care Provider Unavailabl e Reason for Visit * Reason Onset Date Comments TEST RESULTS 11/28/2018 Encounter Details Date Type Department Care Team Description 11/28/2018 Telephone Medicine/Pediatrics - [address] [phone] Pia Molina PA-C TEST RESULTS Social History [...] 12:50 PM EDT Left message to call [phone] * Telephone Encounter - Pia Molina PA-C [...] on filedocumented in this encounter Care Teams Life Tester [employer] Relationship Specialty Start Date End Date Celio Marmolejo MD [address] [place] [address] PCP - General Internal Medicine 08/31/16 10/13/20 Miller Villalpando [address] [place] [address] PCP - General Internal Medicine 10/14/20 documented as of this encounter
--- OUTSIDE RECORDS SUMMARY | 2025-03-01 09:02 | XMS_ITS | Encounter Summary ---
Author Organization [facility] Address [address] [place] [address] Care Team Providers Care Weather Strip Installer Name Role Phone Miller Villalpando Primary Care Provider Alejandro hinton Encounter Details Date Type Department Care Team Description 10/24/2020 SCAN Medical Records [address] [place] [address] Abstract, Provider Social History Tobacco Use Types [...] on filedocumented in this encounter Care Teams Weather Strip Installer Relationship Specialty Start Date End Date Miller Villalpando PCP - General Internal Medicine 10/14/20 documented as of this encounter
--- OUTSIDE RECORDS SUMMARY | 2025-03-01 09:02 | XMS_ITS | Encounter Summary ---
Author Organization [facility] Address [address] [place] [address] Care Team Providers Care Talent Acquisition Director Name Role Phone Celio Marmolejo MD Primary Care Provider +1 -[phone] Miller Villalpando Primary Care Provider Unavailabl e Encounter Details Date Type Department Care Team Description 02/22/2017 Manager Continuous Improvement Report Medical Records [address] [place] [address] Abstract, Provider Social History Tobacco Use Types [...] on filedocumented in this encounter Care Teams Talent Acquisition Director Relationship Specialty Start Date End Date Celio Marmolejo MD [address] [place], [place] [phone] PCP - General Internal Medicine 08/31/16 10/13/20 Miller Villalpando [address] [place] [address] PCP - General Internal Medicine 10/14/20 documented as of this encounter
--- OUTSIDE RECORDS SUMMARY | 2025-03-01 09:02 | XMS_ITS | Clinical Summary ---
Author Organization [facility] Address [address] [facility] [place] [address] Care Team Providers Care Waste Water Plant Operator Name Role Phone Miller Villalpando Primary [...] C SCREENING Completed 11/25/2017, 017 Care Teams Waste Water Plant Operator Relationship Specialty Start Date End Date Miller Villalpando PCP - General Internal Medicine 10/14/20
--- OUTSIDE RECORDS SUMMARY | 2025-03-01 09:02 | XMS_ITS | Encounter Summary ---
Author Organization [facility] Address [address] [place] [address] Care Team Providers Care Bread Jockey Name Role Phone Celio Marmolejo MD Primary Care Provider +1 -[phone] Miller Villalpando Primary Care Provider Unavailabl e Reason for Visit * Reason Comments E-prescribe Rx Request Encounter Details Date Type Department Care Team Description 04/15/2018 Refill Adult Medicine [address] [address] Diego Hartley MD E-prescribe Rx Request Social [...] PATIENT'S LAST APPOINTMENT WITH THE PRESCRIBING PROVIDER? [id number] Does patient have an upcoming appointment? Yes [id number] (THE MEDICATION REQUESTED IS ON THE MED LIST ABOVE) All of the medications requested were on the CURRENT MEDS list Did you check the Pharmacy information above?: YES Patient wants: 90 -day supply Is this a mail order prescription request ? NO Patients current insurance carrier is: [place] / [place] / Product Type: MEDICARE [id number] documented in this encounter Plan of Treatment Not on file documented as of this encounter Visit Diagnoses Not on filedocumented in this encounter Care Teams Bread Jockey Relationship Specialty Start Date End Date Celio Marmolejo MD [address] [place] [address] PCP - General Internal Medicine 08/31/16 10/13/20 Miller Villalpando [address] [place] [address] PCP - General Internal Medicine 10/14/20 documented as of this encounter
--- OUTSIDE RECORDS SUMMARY | 2025-03-01 09:02 | XMS_ITS | Encounter Summary ---
Author Organization [facility] Address [address] [place] [address] Care Team Providers Care Director Of Content Marketing Name Role Phone Celio Marmolejo MD Primary Care Provider +1 -[phone] Miller Villalpando Primary Care Provider Unavailabl e Reason for Visit * Reason Onset Date Comments Nuclear Stress Testing 03/30/2017 Encounter Details Date Type Department Care Team Description 03/30/2017 Telephone Cardiology - [place] [address] [place], [place] [phone] Sita Mahoney MD [address] [place], [place] [phone] Nuclear Stress Testing Social History Tobacco Use [...] stress test till after she returns from [place]. While I would prefer she do this [...] to wait until after she returns from [place] in about a month, before she does this test. Please advise Medicare/Flare3did No auth Req km 03/23/17 documented in this encounter Plan of Treatment Not on file documented as of this encounter Visit Diagnoses Not on filedocumented in this encounter Care Teams Director Of Content Marketing Relationship Specialty Start Date End Date Celio Marmolejo MD [address] [place] [address] PCP - General Internal Medicine 08/31/16 10/13/20 Miller Villalpando [address] [place] [address] PCP - General Internal Medicine 10/14/20 documented as of this encounter
--- OUTSIDE RECORDS SUMMARY | 2025-03-01 09:02 | XMS_ITS | Encounter Summary ---
Author Organization [facility] Address [address] [place] [address] Care Team Providers Care Welder Tool And Die Name Role Phone Celio Marmolejo MD Primary Care Provider +1 -[phone] Miller Villalpando Primary Care Provider Unavailabl e Encounter Details Date Type Department Care Team Description 01/13/2018 Orders Only Podiatry - [place] [address] [place] [address] Ghulam Byrd DPM Other chronic osteomyelitis of [...] - 0.80 mg/dL 01/18/2018 3:30 PM EDT [facility] 01/18/2018 1:35 PM EDT 01/18/2018 1:35 PM EDT Ghulam Byrd DPM LAB [facility] [address] [place] [address] * RBC SEDIMENTATION RATE, NON-AUTO (01/18/2018 1:35 PM EDT) ESR 10 0 - 30 mm/hr 01/18/2018 3:08 PM EDT [facility] 01/18/2018 1:35 PM EDT 01/18/2018 1:35 PM EDT Ghulam Byrd DPM LAB [facility] [address] [facility] * X-RAY EXAM OF FOOT, [...] (HCC) documented in this encounter Care Teams Welder Tool And Die Relationship Specialty Start Date End Date Celio Marmolejo MD [address] [place] [address] PCP - General Internal Medicine 08/31/16 10/13/20 Miller Villalpando [address] [place] [address] PCP - General Internal Medicine 10/14/20 documented as of this encounter
== END ==
LOC: HO.CARD 08:22
PROVIDERS: PCP Internal Medicine; Visit Provider Internal Medicine
DX: R00.2 Palpitations (principal)
CPT/HCPCS: 93242

== ENCOUNTER → 2025-03-01 08:28 | Outpatient (BNV) | payer MEDICARE, MEDICAID, SELFPAY | PROVIDERS: PCP Internal Medicine; Visit Provider Internal Medicine Cardiovascular Disease | DX: I49.1 Atrial premature depolarization (principal) | CPT/HCPCS: 93244 ==

== ENCOUNTER 2025-03-20 08:18 | Outpatient (AMB) | payer MEDICARE, MEDICAID, SELFPAY ==
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
[2025-03-20 08:21] VITALS: BP 124/76; PULSE 86; O2SAT 99; BMI 21.8
== END 2025-03-20 08:51 | disposition home or self-care (01) ==
LOC: HO.HPS 08:19
PROVIDERS: PCP Internal Medicine; Visit Provider Hospitalist
DX: J43.2 Centrilobular emphysema (principal); R91.8 Other nonspecific abnormal finding of lung field; G47.33 Obstructive sleep apnea (adult) (pediatric); J44.9 Chronic obstructive pulmonary disease, unspecified; D84.9 Immunodeficiency, unspecified; Z99.81 Dependence on supplemental oxygen
CPT/HCPCS: 99214; G2211

== ENCOUNTER → 2025-03-20 08:18 | Outpatient (BNVA) | payer MEDICARE, MEDICAID, SELFPAY | PROVIDERS: PCP Internal Medicine; Visit Provider Hospitalist | DX: J43.2 Centrilobular emphysema (principal); G47.33 Obstructive sleep apnea (adult) (pediatric); D84.9 Immunodeficiency, unspecified; Z99.81 Dependence on supplemental oxygen; Z87.891 Personal history of nicotine dependence | CPT/HCPCS: 99212 ==